=== PATIENT | female | born 1970 | race Caucasian/White ===

== ENCOUNTER → 2017-07-20 | Outpatient (CLI) | payer OTHER ==
[2017-07-20 12:44] LABS: Basophils % (A) 0 %; CH 32.8; CHCM 34.7; Eosinophils # (A) 0.3 k/uL (0-0.7); Eosinophils % (A) 4 %; HCT 37.9 % (34.0-46.0); HDW 2.47; HGB 13.2 gm/dL (11.4-16.0); Luc % (Auto) 1; Lymphocytes # (A) 2.8 k/uL (1.0-4.8); Lymphocytes % (A) 35 %; MCH 33.1 pg (25.0-35.0); MCHC 34.8 g/dL (31.0-37.0); Mean Platelet Volume 7.5; Monocytes # (A) 0.3 k/uL (0-1.0); Monocytes % (A) 4 %; Neutrophils # (A) 4.6 k/uL (1.3-7.7); Neutrophils % (A) 56 %; RBC 3.99 m/uL (3.80-5.40); RDW 12.8 % (11.5-15.5); WBC 8.2 k/uL (3.8-10.6); WBC (Perox) 8.58
== END | disposition home or self-care (01) ==
LOC: LABPAT 12:06
PROVIDERS: ATTEND Obstetrics & Gynecology
DX: Z01.810 Encounter for preprocedural cardiovascular examination (principal); Z01.812 Encounter for preprocedural laboratory examination; I10 Essential (primary) hypertension; N93.8 Other specified abnormal uterine and vaginal bleeding
CPT/HCPCS: 85025; 93005

== ENCOUNTER 2017-07-24 07:45 | Day surgery (SDC) | payer OTHER ==
--- NOTE | 2017-07-20 22:06 | HP ---
HISTORY AND PHYSICAL DATE OF PROCEDURE: 07/24/2017 HISTORY: This is a 47-year-old 0 woman with dysfunctional uterine bleeding who is scheduled to undergo NovaSure endometrial ablation and diagnostic hysteroscopy. History is significant for a 2-month history of heavy irregular vaginal bleeding. Endometrial biopsy was benign. Pelvic ultrasound was remarkable for a slightly thickened endometrium of 1.3 cm; otherwise normal. She has elected NovaSure ablation for treatment of her heavy bleeding. ALLERGIES: NONE. MEDICATIONS: 1. Inderal LA. 2. Lopid. 3. Lotensin. 4. Metformin. 5. Microzide. 6. Protonix. 7. Vitamin D. PAST MEDICAL HISTORY: 1. Obesity. 2. Diabetes. 3. History of heart attack. 4. Hypertension. 5. Kidney stones. 6. Supraventricular tachycardia. PAST SURGICAL HISTORY: None. 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 No history of abnormal Pap smears or STDs. SOCIAL HISTORY: She is . Negative for tobacco, alcohol and drug use. REVIEW OF SYSTEMS: Negative except for that described above. PHYSICAL EXAM: Height 5 feet 6 inches, weight 310 pounds, blood pressure 110/80, heart rate 96. In general, this is a pleasant, obese female in no apparent distress. HEENT exam is unremarkable. LUNGS: Clear to auscultation bilaterally. Heart has a regular rate and rhythm. ABDOMEN: Obese with pannus and is soft and nontender. There is some cutaneous candidiasis underneath the pannus and the breasts. Pelvic examination is somewhat limited secondary to the patient's body habitus. However, no gross abnormalities are palpable on bimanual examination. ASSESSMENT: This is a 47-year-old 0 woman with dysfunctional uterine bleeding who is scheduled to undergo diagnostic hysteroscopy and NovaSure endometrial ablation. She has had benign endometrial sampling. Risks, benefits and alternatives to this procedure have been reviewed with the patient in detail in the office setting. Risks include but are not limited to bleeding, transfusion, infection, damage to the uterus, including uterine perforation. There is possible risk of damage to internal structures such as the bowel or the bladder. The patient understands these risks and agrees to proceed. She is scheduled for the above-named procedure on 07/24/17. MMODL / IJN: [id number] /
[2017-07-24] MEDS ORDERED: fentaNYL (PF) 50 MCG/ML 2 ML AMP ONE (09:37)
[2017-07-24] MEDS ORDERED: MIDAZOLAM 2 MG/2 ML VIAL ONE (09:37)
[2017-07-24] MEDS ORDERED: KETOROLAC 30 MG/ML 1 ML VIAL ONE (09:37)
[2017-07-24] MEDS ORDERED: LIDOCAINE 1% INJ 10MG/ML (20 ML MDV) ONE (09:37)
[2017-07-24] MEDS ORDERED: SUCCINYLCHOLINE CHLORIDE VIAL 200 MG/10 ML VIAL IV ONE (09:37)
[2017-07-24] MEDS ORDERED: PROPOFOL 10 MG/ML 20 ML VIAL IV ONE (09:37)
--- NOTE | 2017-07-24 10:16 | P.OP ---
Date of Procedure: 07/24/17 Preoperative Diagnosis: DysFunctional uterine bleeding Morbid obesity Postoperative Diagnosis: Same Procedure(s) Performed: Diagnostic hysteroscopy and NovaSure endometrial ablation Anesthesia: DELIA Surgeon: Juana Ladd Estimated Blood Loss (ml): 0 IV fluids (ml): 300 Urine output (ml): 100 Pathology: none sent Condition: stable Disposition: PACU Description of Procedure: After the patient was met in the preoperative holding area and all questions were answered, she was taken the operating room where anesthetic was administered without incident. She was in positioned, prepped and draped in the dorsal lithotomy position. Bladder was drained for approximately 100 mL of lactated speculum was placed in the vagina and the cervix was grasped anteriorly with a single-tooth tenaculum. Visualization was somewhat difficult secondary to patient's body habitus. The uterus was sounded to 8.5 cm. The cervix was then sequentially dilated with Hegar dilators to allow for passage of the diagnostic hysteroscope. The hysteroscope was introduced and an unremarkable endometrial cavity was appreciated. There are no gross intracavitary lesions noted. The hysteroscope was removed and the cervix was further dilated to allow for passage of the NovaSure ablation device. The device was deployed into the uterus with a cavity length of 4.0 cm and a width of 2.5 cm. Cavity assessment was passed. The device was enabled for a treatment cycle of 79 seconds with a power of 55 W. Following cessation of the treatment cycle the device was removed and the hysteroscope was reintroduced. Complete desiccation of the endometrium was appreciated. All instruments were then removed from the vagina and the patient was awoken from anesthetic without incident. She was transported to recovery area in stable condition. Of note patient did have reasonable uterine descensus and a small uterus and potentially be a candidate for vaginal hysterectomy with difficult secondary to habitus.
[2017-07-24 10:55] LABS: Glucose,Whole Blood 274 mg/dL (75-99)
[2017-07-24 10:55] LABS: Glucose,Whole Blood 267 mg/dL (75-99)
[2017-07-24] MEDS: HYDROmorphone 1 MG/ML 1 ML SYRINGE IVP ONE ×2 (11:08→11:25)
[2017-07-24] MEDS ORDERED: ONDANSETRON 4 MG/2 ML VIAL IVP ONE (11:08)
[2017-07-24 11:22] VITALS: TEMP 97.2
[2017-07-24 11:50] VITALS: PULSE 73; RESP 16
[2017-07-24] MEDS ORDERED: METOCLOPRAMIDE 5 MG/ML 2 ML VIAL IVP ONE (12:00)
[2017-07-24 12:16] VITALS: BP 155/85
== END 2017-07-24 12:34 | disposition home or self-care (01) ==
LOC: OR 07:45
PROVIDERS: ATTEND Obstetrics & Gynecology
DX: N93.8 Other specified abnormal uterine and vaginal bleeding (principal); E11.9 Type 2 diabetes mellitus without complications; I10 Essential (primary) hypertension; I47.1 Supraventricular tachycardia; I25.2 Old myocardial infarction; E66.01 Morbid (severe) obesity due to excess calories; Z79.899 Other long term (current) drug therapy; Z79.84 Long term (current) use of oral hypoglycemic drugs; Z87.442 Personal history of urinary calculi
CPT/HCPCS: 81025; 58563; J2250; J0330; J2765; J2405; J2001; J3010; J1885; J1170; J2704

== ENCOUNTER → 2018-08-21 | Outpatient (CLI) | payer OTHER ==
[2018-08-21 10:18] LABS: Blood Urea Nitrogen 16 mg/dL (7-17)
--- NOTE | 2018-08-21 13:36 | CT ---
EXAMINATION TYPE: CT abdomen pelvis wo/w con DATE OF EXAM: 08/21/2018 COMPARISON: None HISTORY: Pt experiencing left to right abdominal pain, pelvic & perineal pain, hematuria. CT DLP: 3098 mGycm Automated exposure control for dose reduction was used. TECHNIQUE: Helical acquisition of images was performed from the lung bases through the pelvis. CONTRAST: Performed with Oral Contrast and with IV Contrast, patient injected with 100 mL of Isovue 300. FINDINGS: Small umbilical hernia contains fat. LUNG BASES: No significant abnormality is appreciated. LIVER/GB: Liver shows low attenuation and is enlarged. Gallbladder is within normal limits. PANCREAS: No significant abnormality is seen. SPLEEN: Spleen is enlarged. Small splenule noted anterior to the spleen. ADRENALS: No significant abnormality is seen. KIDNEYS: No significant abnormality is seen. Lobular contour to the kidneys is present bilaterally. FREE AIR: No free air is visualized. RETROPERITONEAL ADENOPATHY: None visualized REPRODUCTIVE ORGANS: No significant abnormality is seen URINARY BLADDER: No significant abnormality is seen. PELVIC ADENOPATHY: None visualized. OSSEOUS STRUCTURES: Degenerative disc changes are present in the visualized spine, there is a spinal curvature. BOWEL: Appendix is normal. No evident bowel obstruction. Mucosal thickening in the sigmoid colon is noted, difficult to exclude underlying mass. Scattered diverticular change noted in the colon. OTHER: Varicosities noted proximal left lower extremity the subcutaneous fat anteriorly IMPRESSION: HEPATOSPLENOMEGALY, CORRELATE FOR HEPATIC STEATOSIS. DIVERTICULOSIS, DIFFICULT TO EXCLUDE A MUCOSAL L ESION WITHIN THE COLON, BOWEL SURVEILLANCE HAS NOT BEEN PERFORMED THEN IT SHOULD BE CONSIDERED.
== END | disposition home or self-care (01) ==
LOC: RADCTMAIN 09:26
PROVIDERS: ATTEND Family Medicine
DX: R16.2 Hepatomegaly with splenomegaly, not elsewhere classified (principal)
CPT/HCPCS: 82565; 84520; 74178; 36415; Q9967

== ENCOUNTER → 2018-08-23 | Day surgery (SDC) | payer OTHER ==
[2018-08-21 13:45] VITALS: BMI 39.1
[~2018-08-23] MED LIST: HYDROmorphone 1 MG/ML 1 ML SYRINGE IVP PRN; LACTATED RINGERS 1,000 ML IV SCH; LIDOCAINE 1% 20 ML VIAL (10MG/ML) FOR IV START INTRADERMA PRN; LIDOCAINE 1% INJ 10MG/ML (20 ML MDV) ONE; PROPOFOL 10 MG/ML 20 ML VIAL IV ONE
[2018-08-23 07:21] VITALS: TEMP 97.5
[2018-08-23 07:26] LABS: Glucose,Whole Blood 178 mg/dL (75-99)
--- NOTE | 2018-08-23 09:12 | P.PCN ---
Date of Procedure: 08/23/18 Procedure(s) Performed: Procedure: Total colonoscopy. Preoperative diagnosis: Screening for neoplasia. Postoperative diagnosis: Mild sigmoid diverticulosis with no evidence of acute diverticulitis, strictures, polyps or cancer. Preparation: HalfLytely prep. Sedation: Was provided by anesthesia. Brief clinical history: The patient is a 48-year-old female who is scheduled for this evaluation for screening for neoplasia age being her risk factor. There is no family history of colon cancer. The patient has no abdominal complaints, bleeding or anemia. She had a colonoscopy at age 16, and this would be her first screening examination. Procedure: With the patient on her left lateral decubitus position and after informed consent and adequate sedation, the perianal area was inspected and it did not show any fissures or fistulas. There were no masses felt on digital rectal examination. The Olympus CFQ 160L video colonoscope was then inserted in the rectum in the usual fashion and advanced to the cecum. There were few small diverticular orifices seen scattered in the sigmoid but I saw no evidence of acute diverticulitis or strictures. No polyps or tumors were seen. The mucosa appeared healthy. I retroflexed the endoscope in the rectum before the endoscope was withdrawn. The patient tolerated the procedure well. Plan: The patient was reassured. Discussed dietary measures. She will follow- up with you as planned and I recommended repeat exam in 10 years.
[2018-08-23 09:14] VITALS: BP 159/96; PULSE 64; RESP 18
[2018-08-23 09:21] LABS: Glucose,Whole Blood 157 mg/dL (75-99)
== END ==
LOC: ORWHC2ENDO 07:00
DX: Z12.11 Encounter for screening for malignant neoplasm of colon (principal); K57.30 Diverticulosis of large intestine without perforation or abscess without bleeding; E11.9 Type 2 diabetes mellitus without complications; I10 Essential (primary) hypertension; E78.5 Hyperlipidemia, unspecified; J44.9 Chronic obstructive pulmonary disease, unspecified; K21.9 Gastro-esophageal reflux disease without esophagitis; Z79.84 Long term (current) use of oral hypoglycemic drugs; Z79.82 Long term (current) use of aspirin; Z79.899 Other long term (current) drug therapy; Z88.5 Allergy status to narcotic agent; Z88.8 Allergy status to other drugs, medicaments and biological substances; Z87.891 Personal history of nicotine dependence
CPT/HCPCS: J2001; J2704; G0121

== ENCOUNTER → 2018-10-02 | Outpatient (CLI) | payer OTHER ==
--- NOTE | 2018-10-02 08:59 | NM ---
EXAMINATION TYPE: NM hepatobiliary w CCK DATE OF EXAM: 10/02/2018 COMPARISON: NONE HISTORY: Pain TECHNIQUE: After the intravenous administration of 5.24 mCi Tc 99m Mebrofenin hepatobiliary scintigra phy is performed. Immediate images post injection. FINDINGS: There is satisfactory initial accumulation of tracer by the liver. The gallbladder is visualized wit hin 14 minutes. The small bowel activity is noted within 48 minutes. At one hour CCK was administer ed, patient was injected with 2.3 mcg of Kinevac, and gallbladder ejection fraction is calculated at 38 %. IMPRESSION: 1. Diminished gallbladder ejection fraction which may reflect chronic cholecystitis and/or biliary dy skinesia.
== END | disposition home or self-care (01) ==
LOC: RADNMMAIN 06:46
PROVIDERS: ATTEND Surgery
DX: K81.1 Chronic cholecystitis (principal)
CPT/HCPCS: 78227; A9537; J2805

== ENCOUNTER 2018-10-08 06:17 | Day surgery (SDC) | payer OTHER ==
[~2018-10-08 06:17] MED LIST changes: +DEXAMETHASONE SOD PHOSPHATE 10 MG/ML 1 ML VIAL IV ONE; +HEPARIN SODIUM,PORCINE 5,000 UNIT/ML 1 ML VIAL SQ ONE; -HYDROmorphone 1 MG/ML 1 ML SYRINGE IVP PRN; -LIDOCAINE 1% INJ 10MG/ML (20 ML MDV) ONE; +MIDAZOLAM 2 MG/2 ML VIAL IV PRN; +ONDANSETRON 4 MG/2 ML VIAL IVP ONE; -PROPOFOL 10 MG/ML 20 ML VIAL IV ONE; +ceFAZolin IN SWFI 2 GM/20 ML SYRINGE IVP ONE; +fentaNYL (PF) 50 MCG/ML 2 ML AMP IV PRN
[2018-10-08] MEDS ORDERED: DEXAMETHASONE SOD PHOSPHATE 4 MG/ML 1 ML VIAL IVP ONE (07:25)
[2018-10-08] MEDS ORDERED: ONDANSETRON 4 MG/2 ML VIAL IVP ONE ×2 (07:26→09:38)
[2018-10-08 07:35] LABS: Glucose,Whole Blood 182 mg/dL (75-99)
[2018-10-08] MEDS ORDERED: BUPIVACAIN-EPI 0.25%-1:200,000 30 ML VIAL SQ ONE (07:42)
[2018-10-08] MEDS ORDERED: MIDAZOLAM 2 MG/2 ML VIAL IVP ONE (07:45)
--- NOTE | 2018-10-08 07:54 | P.GSHP ---
History of Present Illness H&P Date: 10/08/18 Chief Complaint: Right upper quadrant pain This is a 48-year-old female who presents today for laparoscopic cholecystectomy. Patient's had complaints were for pain. Her recent HIDA scan shows decreased ejection fraction consistent with chronic cholecystitis and biliary dysfunction. Past Medical History Past Medical History: Diabetes Mellitus, GERD/Reflux, Hyperlipidemia, Hypertension, Osteoarthritis (OA) Additional Past Medical History / Comment(s): CURRENT: WAVES OF URQ PAIN WITH VOMITING. SVT. ALLERGIES. NEUROPATHY IN FEET. 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 Date of last positivie culture/infection: 06/27/17 MDRO Source:: LEFT GROIN Additional Past Surgical History / Comment(s): D & C Past Anesthesia/Blood Transfusion Reactions: No Reported Reaction, Motion Sickness Past Psychological History: Depression Smoking Status: Former smoker Past Alcohol Use History: Occasional Additional Past Alcohol Use History / Comment(s): QUIT@ AGE 27, 1PPD Past Drug Use History: None Reported - Past Family History Mother Family Medical History: Cancer, Deep Vein Thrombosis (DVT) Additional Family Medical History / Comment(s): RENAL CA Brother(s) Family Medical History: Deep Vein Thrombosis (DVT) Medications and Allergies Home Medications Medication Instructions Recorded Confirmed Type Albuterol Sulfate [Proventil Hfa] 1 - 2 puff INHALATION Q6HR PRN 07/19/17 History Aspirin [Adult Low Dose Aspirin EC] 81 mg PO DAILY 07/19/17 10/05/18 History Ergocalciferol (Vitamin D2) 50,000 unit PO FR 07/19/17 10/08/18 History [Vitamin D2] Gemfibrozil [Lopid] 600 mg PO QAM 07/19/17 10/08/18 History Microzide 12.5 mg PO QAM 07/19/17 10/08/18 History Pantoprazole Sodium [Protonix] 40 mg PO QAM 07/19/17 10/05/18 History Propranolol [Inderal] 20 mg PO TID 07/19/17 10/05/18 History diphenhydrAMINE [Benadryl] 25 mg PO DAILY PRN 07/19/17 10/08/18 History metFORMIN HCL 1,000 mg PO QAM 07/19/17 10/05/18 History ALPRAZolam [Xanax] 0.25 mg PO BID PRN 08/21/18 10/08/18 History Sertraline [Zoloft] 50 mg PO QAM 08/21/18 10/05/18 History Victoza 1.2 mg SQ HS 08/21/18 10/05/18 History Multivitamins, Thera [Multivitamin 1 tab PO DAILY 10/05/18 10/05/18 History (formulary)] Allergies Allergy/AdvReac Type Severity Reaction Status Date / Time benazepril Allergy "throat Verified 10/08/18 06:58 closing" hydrocodone [From Vicodin] Allergy Nausea & Verified 10/08/18 06:58 Vomiting Surgical - Exam Vital Signs Temp Pulse Resp BP Pulse Ox 97.7 F 80 20 153/93 96 10/08/18 07:10 10/08/18 07:10 10/08/18 07:10 10/08/18 07:10 10/08/18 07:10 - General well developed, well nourished, no distress - Eyes PERRL - ENT normal pinna - Neck no masses - Respiratory normal respiratory effort - Cardiovascular Rhythm: regular - Abdomen Abdomen: soft, non tender Results - Labs Abnormal Lab Results - Last 24 Hours (Table) 10/08/18 Range/Units 07:18 POC Glucose (mg/dL) 182 H (75-99) mg/dL Assessment and Plan Assessment: Right upper quadrant pain Chronic lysis We'll perform laparoscopic cholecystectomy.
[2018-10-08] MEDS ORDERED: NEOSTIGMINE 1 MG/ML 10 ML VIAL ONE (07:55)
[2018-10-08] MEDS ORDERED: PROPOFOL 10 MG/ML 20 ML VIAL IV ONE (07:55)
[2018-10-08] MEDS ORDERED: GLYCOPYRROLATE 0.2 MG/ML 2 ML VIAL ONE (07:55)
[2018-10-08] MEDS ORDERED: fentaNYL (PF) 50 MCG/ML 2 ML AMP ONE (07:55)
[2018-10-08] MEDS ORDERED: LIDOCAINE 1% INJ 10MG/ML (20 ML MDV) ONE (07:55)
[2018-10-08] MEDS ORDERED: MIDAZOLAM 2 MG/2 ML VIAL ONE (07:55)
[2018-10-08] MEDS ORDERED: ROCURONIUM BROMIDE 10 MG/ML 10 ML VIAL IV ONE (07:55)
[2018-10-08] MEDS ORDERED: LABETALOL 5 MG/ML VIAL MDV ONE (07:55)
[2018-10-08] MEDS ORDERED: KETOROLAC 30 MG/ML 1 ML VIAL ONE (07:55)
[2018-10-08 09:16] VITALS: TEMP 97.5
--- NOTE | 2018-10-08 09:28 | P.OP ---
Date of Procedure: 10/08/18 Preoperative Diagnosis: Cholecystitis Postoperative Diagnosis: Cholecystitis Procedure(s) Performed: Laparoscopic cholecystectomy Anesthesia: DELIA Surgeon: Jose Juan Vergara Estimated Blood Loss (ml): 5 Pathology: other (Gallbladder) Condition: stable Disposition: PACU Description of Procedure: The patient was placed on the operating table. The patient received a general endotracheal tube anesthesia. The patients abdomen was prepped and draped in the usual sterile fashion. Through an infraumbilical stab incision, the fascia of the anterior abdominal wall was grasped with a pair of Kochers and then the Veress needle was placed in the peritoneal cavity. Position of the Veress needle was confirmed with positive drop test. The abdomen was then insufflated. After adequate insufflation, the 10 mm trocar was placed in the peritoneal cavity. Following this the laparoscope was placed in the peritoneal cavity. The patient was placed in the head-up, right side up position and then a 5 mm trocar was placed in the right lateral and right subcostal position under direct visualization. A 8 mm trocar was placed in the epigastric position. The gallbladder was grasped in the fundus and infundibulum. Traction on the gallbladder was placed in the lateral and the cephalad positions. The triangle of Calot was visualized.. The cystic duct was bluntly dissected until the union of the cystic duct and common bile duct was seen. The cystic duct was then divided and sealed with the Harmonic scissors. A PDS Endoloop was then placed throughout the cystic duct stump. The cystic artery divided and sealed with the Harmonic scissors. The gallbladder was then removed from the liver bed using Harmonic scissors. The gallbladder was then extracted through the epigastric port site. Operative field was checked for any bleeding spots and Harmonic scissors was used to coagulate the liver bed. The abdomen was irrigated. The trocars were removed. The skin was closed using interrupted 3-0 Vicryl suture. Dermabond dressing were applied. The patient tolerated the procedure well.
[2018-10-08] MEDS: HYDROmorphone 1 MG/ML 1 ML SYRINGE IVP ONE ×2 (09:33→09:45)
[2018-10-08 10:10] VITALS: RESP 18
[2018-10-08 10:15] LABS: Glucose,Whole Blood 198 mg/dL (75-99)
[2018-10-08 10:24] VITALS: BP 129/83; PULSE 71
== END 2018-10-08 10:53 | disposition home or self-care (01) ==
LOC: OR 06:17
PROVIDERS: ATTEND Surgery
DX: K81.1 Chronic cholecystitis (principal); I10 Essential (primary) hypertension; E11.42 Type 2 diabetes mellitus with diabetic polyneuropathy; E78.5 Hyperlipidemia, unspecified; K21.9 Gastro-esophageal reflux disease without esophagitis; M19.90 Unspecified osteoarthritis, unspecified site; I47.1 Supraventricular tachycardia; F32.9 Major depressive disorder, single episode, unspecified; Z86.14 Personal history of Methicillin resistant Staphylococcus aureus infection; Z87.891 Personal history of nicotine dependence; Z79.84 Long term (current) use of oral hypoglycemic drugs; Z79.82 Long term (current) use of aspirin; Z79.899 Other long term (current) drug therapy; Z88.5 Allergy status to narcotic agent; Z88.8 Allergy status to other drugs, medicaments and biological substances
CPT/HCPCS: 88304; 47562; J2250; J1644; J1100; J2710; J2405; J2001; J3010; J1885; J1170; J2704; J0690

== ENCOUNTER 2023-11-22 07:23 | Inpatient (IN) | payer BC ==
[2023-11-22] MEDS ORDERED: diphenhydrAMINE 50 MG/ML 1 ML VIAL IVP STA (07:57)
[2023-11-22] MEDS ORDERED: SODIUM CHLORIDE 0.9% 1,000 ML IV ONE ×2 (07:57→13:18)
[2023-11-22] MEDS ORDERED: KETOROLAC 15 MG/ML 1 ML VIAL IVP STA (07:57)
[2023-11-22] MEDS ORDERED: METOCLOPRAMIDE 5 MG/ML 2 ML VIAL IVP STA (07:57)
--- NOTE | 2023-11-22 07:58 | ED ---
Nausea/Vomiting/Diarrhea HPI - General Source: patient, EMS, RN notes reviewed Mode of arrival: EMS Limitations: no limitations <Lambert Mueller - Last Filed: 11/22/23 07:57> - General Source: patient, RN notes reviewed, old records reviewed <Zya Rudd - Last Filed: 11/22/23 14:50> - General Chief complaint: Nausea/Vomiting/Diarrhea Stated complaint: covid Time Seen by Provider: 11/22/23 07:58 - History of Present Illness Initial comments: 53-year-old female presents emergency Department chief complaint nausea vomiting dehydration. Patient states she tested positive for COVID-19 on at her PCPs. Patient states that she's not been able to keep anything down she feels very weak, run down. She denies any chest pain or shortness of breath. (Lambert Mueller) Patient presents for evaluation for nausea and vomiting and in the setting of acute COVID-19 infection. Originally evaluated as a quick note. Has history diabetes. Tested positive for COVID-19 last . The last 2 days has had nausea, vomiting, generalized abdominal pain.Endorses diarrhea as well. States she feels sick. Is an insulin-dependent diabetic. Presents for further evaluation at this time. (Zay Rudd) - Related Data Home Medications Medication Instructions Recorded Confirmed Albuterol Sulfate [Proventil Hfa] 1 - 2 puff INHALATION RT-Q6H PRN 07/19/1711/06 Pantoprazole Sodium [Protonix] 40 mg PO DAILY 07/19/17 11/22/23 gemfibroziL [Lopid] 600 mg PO QAM 07/19/17 11/22/23 Gabapentin [Neurontin] 300 mg PO TID 11/22/23 11/22/23 Insulin Glargine/Lixisenatide 60 units SQ AC-BRKFST 11/22/23 11/22/23 [Soliqua 100 Unit-33 Mcg/ml Pen] Metoprolol Succinate (ER) [Toprol 50 mg PO DAILY 11/22/23 11/22/23 Xl] Pantoprazole [Protonix] 40 mg PO DAILY 11/22/23 11/22/23 Rosuvastatin [Crestor] 10 mg PO HS 11/22/23 11/22/23 Spironolactone 25 mg PO DAILY 11/22/23 11/22/23 buPROPion XL [Wellbutrin XL] 150 mg PO DAILY 11/22/23 11/22/23 dilTIAZem HCL [dilTIAZem HCL 24Hr 120 mg PO DAILY 11/22/23 11/22/23 ER (CD)] metFORMIN HCL [Glucophage] 500 mg PO BID 11/22/23 11/22/23 Allergies Allergy/AdvReac Type Severity Reaction Status Date / Time benazepril Allergy "throat Verified 11/22/23 11:46 closing" hydrocodone [From Vicodin] AdvReac Nausea & Verified 11/22/23 11:46 Vomiting Review of Systems ROS Other: All systems not noted in ROS Statement are negative. <Lambert Mueller - Last Filed: 11/22/23 07:57> ROS Other: All systems not noted in ROS Statement are negative. <Zay Rudd - Last Filed: 11/22/23 14:50> ROS Statement: Those systems with pertinent positive or pertinent negative responses have been documented in the HPI. Review of Systems: CONST: Denies fever EYES: Denies blurry vision ENT: Denies nasal congestion C/V: Denies Chest pain RESP: Denies shortness of breath GI: Endorses abdominal pain : Denies dysuria SKIN: Denies rash. MSK: Denies joint pain. NEURO: Denies headache (Zay Rudd) Past Medical History Past Medical History: Diabetes Mellitus, GERD/Reflux, Hyperlipidemia, Hypertension, Osteoarthritis (OA) Additional Past Medical History / Comment(s): SVT. ALLERGIES. NEUROPATHY IN FEET. 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 Date of last positivie culture/infection: 06/27/17 MDRO Source:: LEFT GROIN Additional Past Surgical History / Comment(s): D & C Past Anesthesia/Blood Transfusion Reactions: No Reported Reaction, Motion Sickness Past Psychological History: Depression Smoking Status: Former smoker Past Alcohol Use History: Occasional Past Drug Use History: None Reported - Past Family History Mother Family Medical History: Cancer, Deep Vein Thrombosis (DVT) Additional Family Medical History / Comment(s): RENAL CA Brother(s) Family Medical History: Deep Vein Thrombosis (DVT) <Lambert Mueller - Last Filed: 11/22/23 07:57> General Exam Limitations: no limitations <Lambert Mueller - Last Filed: 11/22/23 07:57> <Zay Rudd - Last Filed: 11/22/23 14:50> - General Exam Comments Initial Comments: Visual Physical Exam Vital signs reviewed General: Well-appearing, nontoxic, no acute distress. Head: Normocephalic, atraumatic Eyes: PERRLA, EOMI ENT: Airway patent Chest: Nonlabored breathing Skin: No visual rash, normal skin tone Neuro: Alert and oriented 3 Musculoskeletal: No gross abnormalities (Lambert Mueller) General: Appears in moderate distress. HEAD: Normal with no signs of head trauma. EYES: PERRLA, EOMI, conjunctiva normal, no discharge. ENT: Hearing grossly intact, normal oropharynx. Dry mucous membranes. RESPIRATORY: Clear breath sounds bilaterally. No wheezes, rales, or rhonchi. No hypoxia. No increased work of breathing. C/V: Tachycardic. S1 and S2 auscultated, no edema, peripheral pulses 2+ and intact throughout ABD: Abdomen is nondistended, soft. No focal tenderness to palpation, but generalized tenderness. No guarding. No rebound tenderness. No peritoneal signs. EXT: Normal range of motion, no obvious deformity SKIN: No rashes or lesions observed on exposed skin. NEURO: Alert and oriented 4. (Zay Rudd) Course Vital Signs 11/22/23 11/22/23 07:31 10:27 Temperature 97.7 F Pulse Rate 118 H 110 H Respiratory 18 20 Rate Blood Pressure 173/93 188/105 O2 Sat by Pulse 95 97 Oximetry Medical Decision Making <Lambert Mueller - Last Filed: 11/22/23 07:57> - Lab Data Result diagrams: 11/22/23 07:59 11/22/23 13:23 - EKG Data -: EKG Interpreted by Me <Zay Rudd - Last Filed: 11/22/23 14:50> - Medical Decision Making I completed the quick note portion of this chart signed Lambert Mueller PA-C (Lambert Mueller) Was pt. sent in by a medical professional or institution (NATO Ordonez, DATABASE ADMINISTRATION MANAGER, urgent care, hospital, or assisted...) When possible be specific @ -No Did you speak to anyone other than the patient for history (EMS, parent, family, police, friend...)? What history was obtained from this source @ -No Did you review nursing and triage notes (agree or disagree)? Why? @ -I reviewed and agree with nursing and triage notes Were old charts reviewed (outside hosp., previous admission, EMS record, old EKG, old radiological studies, urgent care reports/EKG's, assisted records)? Report findings @ -Charts reviewed Differential Diagnosis (chest pain, altered mental status, abdominal pain women, abdominal pain men, vaginal bleeding, weakness, fever, dyspnea, syncope, headache, dizziness, GI bleed, back pain, seizure, CVA, palpatations, mental health, musculoskeletal)? @ -Differential Weakness: Hypoglycemia, shock, sepsis, hyponatremia, anemia, infection, AL, ETOH, adverse medicine reaction, overdose, stroke, this is not meant to be an all-inclusive list. Differential Abdominal Pain Women: Appendicitis, Cholecystitis, diverticulosis, ischemic bowel, pancreatitis, hepatitis, UTI, gastroenteritis, AAA, incarcerated hernia, bowel obstruction, constipation, inflammatory bowel, hepatitis, peptic ulcer disease, splenic infarction, perforated viscus, vulvitis, ovarian torsion, PID, kidney stone, placenta abruption, this is not meant to be an all-inclusive list EKG interpreted by me (3pts min.). @ -As above X-rays interpreted by me (1pt min.). @ -Chest x-ray reveals no obvious acute cardiopulmonary process. CT interpreted by me (1pt min.). @ -CT abdomen and pelvis reveals colitis as well as chronic renal finding. U/S interpreted by me (1pt. min.). @ -None done What testing was considered but not performed or refused? (CT, X-rays, U/S, la bs)? Why? @ -None What meds were considered but not given or refused? Why? @ -None Did you discuss the management of the patient with other professionals (professionals i.e. DrRissa, PA, DATABASE ADMINISTRATION MANAGER, lab, RT, psych nurse, social work case manager, christian science nurse, teacher, security officers and guards, case supervisor)? Give summary @ -I spoke with the admitting physician, Dr. Dukes who accepted the admission. Was smoking cessation discussed for >3mins.? @ -No Was critical care preformed (if so, how long)? @ -No Were there social determinants of health that impacted care today? How? (Homelessness, low income, unemployed, alcoholism, drug addiction, tr ansportation, low edu. Level, literacy, decrease access to med. care, alf, rehab)? @ -No Was there de-escalation of care discussed even if they declined (Discuss DNR or withdrawal of care, Hospice)? DNR status @ -No What co-morbidities impacted this encounter? (DM, HTN, Smoking, COPD, CAD, Cancer, CVA, ARF, Chemo, Hep., AIDS, mental health diagnosis, sleep apnea, morbid obesity)? @ -None Was patient admitted / discharged? Hospital course, mention meds given and route, prescriptions, significant lab abnormalities, going to OR and other pertinent info. @ -Based on the patient's presentation and physical exam, I'm concerned for dehydration. The patient, possible diabetic ketoacidosis in the setting of diabetes that is insulin-dependent. I evaluated the patient when she was placed in a room after workup was already started as a quick note. Labs returned and so far remarkable for hyponatremia and hypochloremia. Patient has an anion gap of 19 and appears to be acidotic with a carbon dioxide of 12. Patient is hyperglycemic to 459. Hemolyzed potassium is 5.2 and we will repeat. Patient is having moderate abdominal pain and we will obtain CT abdomen and pelvis in addition to chest x-ray, initial laboratory studies. Patient was in agreement with this plan. She'll be symptomatically treated with 2 L fluid bolus as well as IV Reglan, Toradol, Benadryl. Vital signs otherwise within acceptable limits. EKG shows no signs of acute ischemia. No evidence of hyperkalemia.Patient has ketones in the urine however acetone is negative. Patient does have a mild lactic acidosis of 2.8. Repeat potassium is normal. Patient still testing positive for Covid. He On reevaluation come patient is feeling improved. I believe she requires admission at this time. I do not believe she has DKA at this time. She was in agreement. She will be admitted for IV fluid hydration and monitoring her sugars. She was in agreement this plan. I spoke with the admitting physician, Dr. Dukes who accepted the admission. Undiagnosed new problem with uncertain prognosis? @ -No Drug Therapy requiring intensive monitoring for toxicity (Heparin, Nitro, Insulin, Cardizem)? @ -No Were any procedures done? @ -No Diagnosis/symptom? @ -COVID-19 infection, dehydration, hyperglycemia Acute, or Chronic, or Acute on Chronic? @ -Acute Uncomplicated (without systemic symptoms) or Complicated (systemic symptoms)? @ -Complicated Side effects of treatment? @ -none Exacerbation, Progression, or Severe Exacerbation] @ -no Poses a threat to life or bodily function? @ -Yes (Zay Rudd) - Lab Data Lab Results 11/22/23 11/22/23 11/22/23 Range/Units 07:59 07:59 07:59 WBC 8.9 (3.8-10.6) k/uL RBC 5.13 (3.80-5.40) m/uL Hgb 16.2 H (11.4-16.0) gm/dL Hct 45.1 (34.0-46.0) % MCV 87.8 (80.0-100.0) fL MCH 31.5 (25.0-35.0) pg MCHC 35.9 (31.0-37.0) g/dL RDW 12.5 (11.5-15.5) % Plt Count 193 (150-450) k/uL MPV 10.0 Neutrophils % 74 % Lymphocytes % 15 % Monocytes % 9 % Eosinophils % 0 % Basophils % 1 % Neutrophils # 6.5 (1.3-7.7) k/uL Lymphocytes # 1.4 (1.0-4.8) k/uL Monocytes # 0.8 (0-1.0) k/uL Eosinophils # 0.0 (0-0.7) k/uL Basophils # 0.0 (0-0.2) k/uL VBG pH (7.31-7.41) VBG pCO2 (37-51) mmHg VBG HCO3 (24-28) mmol/L Sodium 126 L (137-145) mmol/L Potassium 5.2 H (3.5-5.1) mmol/L Chloride 95 L (98-107) mmol/L Carbon Dioxide 12 L (22-30) mmol/L Anion Gap 19 mmol/L BUN 30 H (7-17) mg/dL Creatinine 0.52 (0.52-1.04) mg/dL Est GFR (CKD-EPI)AfAm >90 (>60 ml/min/1.73 sqM) Est GFR (CKD-EPI)NonAf >90 (>60 ml/min/1.73 sqM) Glucose 459 H (74-99) mg/dL Lactic Ac Sepsis Rflx Plasma Lactic Acid Rex (0.7-2.0) mmol/L Calcium 9.8 (8.4-10.2) mg/dL Magnesium 1.6 (1.6-2.3) mg/dL Total Bilirubin 0.8 (0.2-1.3) mg/dL AST 97 H (14-36) U/L ALT 76 H (4-34) U/L Alkaline Phosphatase 105 (38-126) U/L Total Protein 7.9 (6.3-8.2) g/dL Albumin 4.7 (3.5-5.0) g/dL Urine Color Light Yellow Urine Appearance Clear (Clear) Urine pH 6.0 (5.0-8.0) Ur Specific [place] 1.032 (1.001-1.035) Urine Protein 2+ H (Negative) Urine Glucose (UA) 4+ H (Negative) Urine Ketones 2+ H (Negative) Urine Blood Small H (Negative) Urine Nitrite Negative (Negative) Urine Bilirubin Negative (Negative) Urine Urobilinogen <2.0 (<2.0) mg/dL Ur Leukocyte Esterase Trace H (Negative) Urine RBC 1 (0-5) /hpf Urine WBC 3 (0-5) /hpf Ur Squamous Epith Cells 1 (0-4) /hpf Hyaline Casts 3 H (0-2) /lpf Urine Mucus Rare H (None) /hpf Urine Yeast (Budding) Rare H (None) /hpf Acetone, Qual (Negative) Influenza Type A (PCR) (Not Detectd) Influenza Type B (PCR) (Not Detectd) RSV (PCR) (Not Detectd) SARS-CoV-2 (PCR) (Not Detectd) 11/22/23 11/22/23 11/22/23 Range/Units 09:32 09:32 09:32 WBC (3.8-10.6) k/uL RBC (3.80-5.40) m/uL Hgb (11.4-16.0) gm/dL Hct (34.0-46.0) % MCV (80.0-100.0) fL MCH (25.0-35.0) pg MCHC (31.0-37.0) g/dL RDW (11.5-15.5) % Plt Count (150-450) k/uL MPV Neutrophils % % Lymphocytes % % Monocytes % % Eosinophils % % Basophils % % Neutrophils # (1.3-7.7) k/uL Lymphocytes # (1.0-4.8) k/uL Monocytes # (0-1.0) k/uL Eosinophils # (0-0.7) k/uL Basophils # (0-0.2) k/uL VBG pH 7.31 (7.31-7.41) VBG pCO2 44 (37-51) mmHg VBG HCO3 22 L (24-28) mmol/L Sodium (137-145) mmol/L Potassium 4.3 (3.5-5.1) mmol/L Chloride (98-107) mmol/L Carbon Dioxide (22-30) mmol/L Anion Gap mmol/L BUN (7-17) mg/dL Creatinine (0.52-1.04) mg/dL Est GFR (CKD-EPI)AfAm (>60 ml/min/1.73 sqM) Est GFR (CKD-EPI)NonAf (>60 ml/min/1.73 sqM) Glucose (74-99) mg/dL Lactic Ac Sepsis Rflx Plasma Lactic Acid Rex 2.8 H* (0.7-2.0) mmol/L Calcium (8.4-10.2) mg/dL Magnesium (1.6-2.3) mg/dL Total Bilirubin (0.2-1.3) mg/dL AST (14-36) U/L ALT (4-34) U/L Alkaline Phosphatase (38-126) U/L Total Protein (6.3-8.2) g/dL Albumin (3.5-5.0) g/dL Urine Color Urine Appearance (Clear) Urine pH (5.0-8.0) Ur Specific [place] (1.001-1.035) Urine Protein (Negative) Urine Glucose (UA) (Negative) Urine Ketones (Negative) Urine Blood (Negative) Urine Nitrite (Negative) Urine Bilirubin (Negative) Urine Urobilinogen (<2.0) mg/dL Ur Leukocyte Esterase (Negative) Urine RBC (0-5) /hpf Urine WBC (0-5) /hpf Ur Squamous Epith Cells (0-4) /hpf Hyaline Casts (0-2) /lpf Urine Mucus (None) /hpf Urine Yeast (Budding) (None) /hpf Acetone, Qual Negative (Negative) Influenza Type A (PCR) (Not Detectd) Influenza Type B (PCR) (Not Detectd) RSV (PCR) (Not Detectd) SARS-CoV-2 (PCR) (Not Detectd) 11/22/23 11/22/23 Range/Units 09:32 10:46 WBC (3.8-10.6) k/uL RBC (3.80-5.40) m/uL Hgb (11.4-16.0) gm/dL Hct (34.0-46.0) % MCV (80.0-100.0) fL MCH (25.0-35.0) pg MCHC (31.0-37.0) g/dL RDW (11.5-15.5) % Plt Count (150-450) k/uL MPV Neutrophils % % Lymphocytes % % Monocytes % % Eosinophils % % Basophils % % Neutrophils # (1.3-7.7) k/uL Lymphocytes # (1.0-4.8) k/uL Monocytes # (0-1.0) k/uL Eosinophils # (0-0.7) k/uL Basophils # (0-0.2) k/uL VBG pH (7.31-7.41) VBG pCO2 (37-51) mmHg VBG HCO3 (24-28) mmol/L Sodium (137-145) mmol/L Potassium (3.5-5.1) mmol/L Chloride (98-107) mmol/L Carbon Dioxide (22-30) mmol/L Anion Gap mmol/L BUN (7-17) mg/dL Creatinine (0.52-1.04) mg/dL Est GFR (CKD-EPI)AfAm (>60 ml/min/1.73 sqM) Est GFR (CKD-EPI)NonAf (>60 ml/min/1.73 sqM) Glucose (74-99) mg/dL Lactic Ac Sepsis Rflx Y Plasma Lactic Acid Rex (0.7-2.0) mmol/L Calcium (8.4-10.2) mg/dL Magnesium (1.6-2.3) mg/dL Total Bilirubin (0.2-1.3) mg/dL AST (14-36) U/L ALT (4-34) U/L Alkaline Phosphatase (38-126) U/L Total Protein (6.3-8.2) g/dL Albumin (3.5-5.0) g/dL Urine Color Urine Appearance (Clear) Urine pH (5.0-8.0) Ur Specific [place] (1.001-1.035) Urine Protein (Negative) Urine Glucose (UA) (Negative) Urine Ketones (Negative) Urine Blood (Negative) Urine Nitrite (Negative) Urine Bilirubin (Negative) Urine Urobilinogen (<2.0) mg/dL Ur Leukocyte Esterase (Negative) Urine RBC (0-5) /hpf Urine WBC (0-5) /hpf Ur Squamous Epith Cells (0-4) /hpf Hyaline Casts (0-2) /lpf Urine Mucus (None) /hpf Urine Yeast (Budding) (None) /hpf Acetone, Qual (Negative) Influenza Type A (PCR) Not Detected (Not Detectd) Influenza Type B (PCR) Not Detected (Not Detectd) RSV (PCR) Not Detected (Not Detectd) SARS-CoV-2 (PCR) Detected A (Not Detectd) - EKG Data EKG Comments: 12-lead Electrocardiogram Interpretation Note EKG was reviewed and interpreted by myself. 12-lead ECG performed at 0911 is interpreted by me as revealing sinus tachycardia at a rate of 102 beats per minute. Garrard is normal. ID interval is 198 ms, QRS duration is 96 seconds, QTC is 386 ms.. There were no ST or T wave abnormalities to suggest myocardial ischemia or injury. R wave progression across the precordium was satisfactory. By my interpretation this EKG is non-diagnostic for acute ischemia. (Zay Rudd) Disposition <Lambert Mueller - Last Filed: 11/22/23 07:57> Time of Disposition: 11:35 <Zay Rudd - Last Filed: 11/22/23 14:50> Clinical Impression: COVID-19, Dehydration, Hyperglycemia, Hyponatremia Disposition: ADMITTED IP TO THIS HOSP Condition: Stable
[2023-11-22 08:50] LABS: ALT 76 U/L (4-34); AST 97 U/L (14-36); African American GFR (CKD) >90 (>60 ml/min/1.73 sqM); Albumin 4.7 g/dL (3.5-5.0); Alkaline Phosphatase 105 U/L (38-126); Anion Gap 19 mmol/L; Blood Urea Nitrogen 30 mg/dL (7-17); Calcium 9.8 mg/dL (8.4-10.2); Carbon Dioxide 12 mmol/L (22-30); Chloride 95 mmol/L (98-107); Glucose 459 mg/dL (74-99); Magnesium 1.6 mg/dL (1.6-2.3); Non-African American GFR(CKD) >90 (>60 ml/min/1.73 sqM); Sodium 126 mmol/L (137-145); Total Bilirubin 0.8 mg/dL (0.2-1.3); Total Protein 7.9 g/dL (6.3-8.2)
[2023-11-22 08:57] LABS: Potassium 5.2 mmol/L (3.5-5.1)
[2023-11-22 08:58] LABS: Basophils % (A) 1 %; Eosinophils % (A) 0 %; HCT 45.1 % (34.0-46.0); HGB 16.2 gm/dL (11.4-16.0); Lymphocytes # (A) 1.4 k/uL (1.0-4.8); Lymphocytes % (A) 15 %; MCH 31.5 pg (25.0-35.0); MCHC 35.9 g/dL (31.0-37.0); MCV 87.8 fL (80.0-100.0); Monocytes # (A) 0.8 k/uL (0-1.0); Monocytes % (A) 9 %; Neutrophils # (A) 6.5 k/uL (1.3-7.7); Neutrophils % (A) 74 %; Platelet Count 193 k/uL (150-450); RBC 5.13 m/uL (3.80-5.40); RDW 12.5 % (11.5-15.5); WBC 8.9 k/uL (3.8-10.6)
[2023-11-22] MEDS ORDERED: SODIUM CHLORIDE 0.9% 1,000 ML IV STA (09:09)
[2023-11-22 09:58] LABS: Appearance,Urine Clear (Clear); Bilirubin,Urine Negative (Negative); Blood,Urine Small (Negative); Budding Yeast,Urine Rare /hpf; Color,Urine Light Yellow; Glucose,Urine (UA) 4+ (Negative); Hyaline Casts,Urine 3 /lpf (0-2); Leukocyte Esterase,Urine Trace (Negative); Mucus,Urine Rare /hpf; Nitrite,Urine Negative (Negative); Protein,Urine 2+ (Negative); RBC,Urine 1 /hpf (0-5); Specific Gravity,Urine 1.032 (1.001-1.035); Squamous Epithelial Cell,Urine 1 /hpf (0-4); Urobilinogen,Urine <2.0 mg/dL (<2.0); WBC,Urine 3 /hpf (0-5)
[2023-11-22 10:00] LABS: VBG PH 7.31 (7.31-7.41)
[2023-11-22 10:11] LABS: Potassium 4.3 mmol/L (3.5-5.1)
--- NOTE | 2023-11-22 10:23 | CT ---
EXAMINATION TYPE: CT abdomen pelvis w con CT DLP: 2448.7 mGycm, Automated exposure control for dose reduction was used. DATE OF EXAM: 11/22/2023 10:09 AM COMPARISON: CT abdomen pelvis most recent from 08/21/2018. CLINICAL INDICATION:Female, 53 years old with history of pain, acute, nonlocalized; Covid, N/V/D abdo amanda pain TECHNIQUE: Axial CT abdomen pelvis w con;Sagittal and coronal reformats were created on a separate w orkstation. Contrast used:100 mL of Isovue 300 with IV Contrast, (none if empty) Oral contrast used: without Oral Contrast (none if empty) FINDINGS: LOWER CHEST: Unremarkable ABDOMEN LIVER: Diffusely hypoattenuating parenchyma. GALLBLADDER AND BILE DUCTS: Gallbladder surgically absent. PANCREAS: Unremarkable. SPLEEN: Unremarkable. ADRENAL GLANDS: Unremarkable. KIDNEYS AND URETERS: No evidence of hydronephrosis or renal calculus. The ureters are unremarkable. Indeterminate exophytic lesion in the inferior pole measuring 37 Hounsfield units and 23 mm, previous ly 10 mm in 2018. PELVIS BLADDER: Unremarkable REPRODUCTIVE: Unremarkable. ABDOMEN & PELVIS STOMACH AND BOWEL: No evidence of bowel obstruction. The appendix extends up along the anterior aspec t of the liver and terminates in the right upper quadrant. PERITONEUM/RETROPERITONEUM: No evidence of pneumoperitoneum or free fluid. VASCULATURE: Mild atherosclerotic calcifications are present throughout the abdominal aorta and its b ranches. No evidence of aortic aneurysm. MUSCULOSKELETAL: No acute osseous abnormalities. Moderate disc degeneration changes are present throu ghout the thoracolumbar spine. LYMPH NODES: No gross evidence for lymphadenopathy. SOFT TISSUE/ABDOMINAL WALL: Fat-containing buccal hernia. Few scattered colonic diverticula. Mild wal l thickening of the cecum and ascending colon IMPRESSION: 1. Mild wall thickening of the cecum and ascending colon correlate for colitis. No other acute abdom inal process visualized. 2. Indeterminate left renal lesion which is increase in size from 2018. Further evaluation with [place] l mass protocol MRI recommended. 3. Fat-containing umbilical hernia. 4. Hepatic steatosis.
--- NOTE | 2023-11-22 10:26 | XR ---
EXAMINATION TYPE: XR chest 2V DATE OF EXAM: 11/22/2023 10:15 AM CLINICAL INDICATION:Female, 53 years old with history of cough COMPARISON: Chest radiographs from 11/22/2023. TECHNIQUE: XR chest 2V Frontal and lateral views of the chest. FINDINGS: Lungs/Pleura: There is no evidence of pleural effusion, focal consolidation, or pneumothorax. Pulmonary vascularity: Unremarkable. Heart/mediastinum: Cardiomediastinal silhouette is unremarkable. Musculoskeletal: No acute osseous pathology. Other findings: None IMPRESSION: No acute cardiopulmonary disease/process.
[2023-11-22 10:52] LABS: Ketones,Urine 2+ (Negative)
[2023-11-22] MEDS ORDERED: NALOXONE 0.4 MG/ML 1 ML VIAL IV PRN (12:05)
[2023-11-22] MEDS ORDERED: DEXTROSE 50% SYRINGE 50 ML IVP PRN ×2 (12:16)
[2023-11-22] MEDS: METOPROLOL SUCCINATE (ER) 50 MG TAB.ER.24H PO SCH (13:08)
[2023-11-22] MEDS: SPIRONOLACTONE 25 MG TAB PO SCH (13:08)
[2023-11-22] MEDS: DILTIAZEM CD 120 MG CAP.ER.24H PO SCH (13:08)
[2023-11-22] MEDS: PANTOPRAZOLE 40 MG TABLET PO SCH (13:08)
[2023-11-22 13:13] LABS: Glucose,Whole Blood 360 mg/dL (70-110)
[2023-11-22] MEDS: INSULIN ASPART (NovoLOG) 100 UNIT/ML VIAL SQ SCH ×2 (13:18→17:32)
[2023-11-22] MEDS: SODIUM CHLORIDE 0.9% 1,000 ML IV SCH ×2 (13:18→21:49)
[2023-11-22] MEDS: ONDANSETRON 4 MG/2 ML VIAL IVP PRN ×2 (13:18→13:21)
[2023-11-22] MEDS ORDERED: INSULIN GLARGINE SQ SCH (13:19)
[2023-11-22] MEDS ORDERED: LIXISENATIDE SQ SCH (13:19)
[2023-11-22] MEDS: ACETAMINOPHEN TAB 325 MG TAB PO PRN (13:21)
[2023-11-22 13:54] LABS: Potassium 4.3 mmol/L (3.5-5.1)
[2023-11-22 13:55] LABS: African American GFR (CKD) >90 (>60 ml/min/1.73 sqM); Anion Gap 13 mmol/L; Blood Urea Nitrogen 27 mg/dL (7-17); Calcium 9.3 mg/dL (8.4-10.2); Carbon Dioxide 18 mmol/L (22-30); Chloride 99 mmol/L (98-107); Glucose 340 mg/dL (74-99); Non-African American GFR(CKD) >90 (>60 ml/min/1.73 sqM); Sodium 130 mmol/L (137-145)
--- NOTE | 2023-11-22 14:05 | P.HPIM ---
History of Present Illness H&P Date: 11/22/23 Chief Complaint: Nausea, vomiting * 53-year-old patient with past medical history significant for diabetes mellitus, hypertension, hyperlipidemia, gastric physical reflux disease presents to the emergency department with complains of nausea, vomiting, fatigue. Patient states she was tested outpatient for Covid 19 last week. Since then patient states she has been nauseous and not able to keep anything down. Patient has been having nausea, vomiting, generalized abdominal pain for the last 48 hours. She has also complained of diarrhea. * Patient states she was placed on steroid outpatient and has been taking steroids for the last several days * Workup initiated in ER included basic metabolic panel which did show metabolic acidosis and hyperglycemia, acetones were negative. Patient was resuscitated with IV fluid, serum lactate obtained was 2.8, initial potassium was 5.3 follow-up 4.3. * CT abdomen and pelvis obtained in ED this suspicion for colitis, hepatic steat osis, renal abnormality suggesting MRI * Further workup in ER included urinalysis but did show significant ketones, proteinuria and glucosuria * Patient tested positive for Covid * Patient admitted to medical floor to be treated for colitis as well as Covid 19 as well as hyperglycemia with underlying diabetes REVIEW OF SYSTEMS: Nausea, vomiting, abdominal pain CONSTITUTIONAL: No fever, no malaise, no fatigue. HEENT: No recent visual problems or hearing problems. Denied any sore throat. CARDIOVASCULAR: No chest pain, orthopnea, PND, no palpitations, no syncope. PULMONARY: No shortness of breath, no cough, no hemoptysis. GASTROINTESTINAL: Nausea, vomiting, abdominal pain NEUROLOGICAL: No headaches, no weakness, no numbness. HEMATOLOGICAL: Denies any bleeding or petechiae. GENITOURINARY: Denies any burning micturition, frequency, or urgency. MUSCULOSKELETAL/RHEUMATOLOGICAL: Denies any joint pain, swelling, or any muscle pain. ENDOCRINE: Denies any polyuria or polydipsia. PHYSICAL EXAMINATION: GENERAL: The patient is alert and oriented x3, ill appearance HEENT: Pupils are round and equally reacting to light. EOMI Normocephalic, atra umatic. No pharyngeal erythema. No thyromegaly. CARDIOVASCULAR: S1 and S2 present. No murmurs, rubs, or gallops. PULMONARY: Chest is clear to auscultation, no wheezing or crackles. ABDOMEN: Soft, nontender, nondistended, normoactive bowel sounds. No palpable organomegaly. MUSCULOSKELETAL: No joint swelling or deformity. EXTREMITIES: No cyanosis, clubbing, or pedal edema. NEUROLOGICAL: Gross neurological examination did not reveal any focal deficits. SKIN: No rashes. Past Medical History Past Medical History: Diabetes Mellitus, GERD/Reflux, Hyperlipidemia, Hypertension, Osteoarthritis (OA) Additional Past Medical History / Comment(s): SVT. ALLERGIES. NEUROPATHY IN FEET. 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 Date of last positivie culture/infection: 06/27/17 MDRO Source:: LEFT GROIN Additional Past Surgical History / Comment(s): D & C Past Anesthesia/Blood Transfusion Reactions: No Reported Reaction, Motion Sickness Past Psychological History: Depression Smoking Status: Former smoker Past Alcohol Use History: Occasional Past Drug Use History: None Reported - Past Family History Mother Family Medical History: Cancer, Deep Vein Thrombosis (DVT) Additional Family Medical History / Comment(s): RENAL CA Brother(s) Family Medical History: Deep Vein Thrombosis (DVT) Medications and Allergies Home Medications Medication Instructions Recorded Confirmed Type Albuterol Sulfate [Proventil Hfa] 1 - 2 puff INHALATION RT-Q6H PRN 07/19/17 11/22/23 History Pantoprazole Sodium [Protonix] 40 mg PO DAILY 07/19/17 11/22/23 History gemfibroziL [Lopid] 600 mg PO QAM 07/19/17 11/22/23 History Gabapentin [Neurontin] 300 mg PO TID 11/22/23 11/22/23 History Insulin Glargine/Lixisenatide 60 units SQ AC-BRKFST 11/22/23 11/22/23 History [Soliqua 100 Unit-33 Mcg/ml Pen] Metoprolol Succinate (ER) [Toprol 50 mg PO DAILY 11/22/23 11/22/23 History Xl] Pantoprazole [Protonix] 40 mg PO DAILY 11/22/23 11/22/23 History Rosuvastatin [Crestor] 10 mg PO HS 11/22/23 11/22/23 History Spironolactone 25 mg PO DAILY 11/22/23 11/22/23 History buPROPion XL [Wellbutrin XL] 150 mg PO DAILY 11/22/23 11/22/23 History dilTIAZem HCL [dilTIAZem HCL 24Hr 120 mg PO DAILY 11/22/23 11/22/23 History ER (CD)] metFORMIN HCL [Glucophage] 500 mg PO BID 11/22/23 11/22/23 History Allergies Allergy/AdvReac Type Severity Reaction Status Date / Time benazepril Allergy "throat Verified 11/22/23 11:46 closing" hydrocodone [From Vicodin] AdvReac Nausea & Verified 11/22/23 11:46 Vomiting Physical Exam Vitals: Vital Signs Temp Pulse Resp BP Pulse Ox 11/22/23 10:27 110 H 20 188/105 97 11/22/23 07:31 97.7 F 118 H 18 173/93 95 Intake and Output 11/21/23 11/22/23 11/22/23 22:59 06:59 14:59 Other: Weight 127.006 kg Results CBC & Chem 7: 11/22/23 07:59 11/22/23 13:23 Labs: Abnormal Lab Results - Last 24 Hours (Table) 11/22/23 11/22/23 11/22/23 Range/Units 07:59 07:59 07:59 Hgb 16.2 H (11.4-16.0) gm/dL VBG HCO3 (24-28) mmol/L Sodium 126 L (137-145) mmol/L Potassium 5.2 H (3.5-5.1) mmol/L Chloride 95 L (98-107) mmol/L Carbon Dioxide 12 L (22-30) mmol/L BUN 30 H (7-17) mg/dL Glucose 459 H (74-99) mg/dL Plasma Lactic Acid Rex (0.7-2.0) mmol/L AST 97 H (14-36) U/L ALT 76 H (4-34) U/L Urine Protein 2+ H (Negative) Urine Glucose (UA) 4+ H (Negative) Urine Ketones 2+ H (Negative) Urine Blood Small H (Negative) Ur Leukocyte Esterase Trace H (Negative) Hyaline Casts 3 H (0-2) /lpf Urine Mucus Rare H (None) /hpf Urine Yeast (Budding) Rare H (None) /hpf SARS-CoV-2 (PCR) (Not Detectd) 01/17/24 01/17/24 01/17/24 Range/Units 09:32 09:32 09:32 Hgb (11.4-16.0) gm/dL VBG HCO3 22 L (24-28) mmol/L Sodium (137-145) mmol/L Potassium (3.5-5.1) mmol/L Chloride (98-107) mmol/L Carbon Dioxide (22-30) mmol/L BUN (7-17) mg/dL Glucose (74-99) mg/dL Plasma Lactic Acid Rex 2.8 H* (0.7-2.0) mmol/L AST (14-36) U/L ALT (4-34) U/L Urine Protein (Negative) Urine Glucose (UA) (Negative) Urine Ketones (Negative) Urine Blood (Negative) Ur Leukocyte Esterase (Negative) Hyaline Casts (0-2) /lpf Urine Mucus (None) /hpf Urine Yeast (Budding) (None) /hpf SARS-CoV-2 (PCR) Detected A (Not Detectd) Assessment and Plan Assessment: Assessment and plan Acute gastroenteritis/colitis COVID-19 vital infection with gastroenteritis Diabetes mellitus type II with hyperglycemia Metabolic acidosis Lactic acidosis secondary to dehydration Acute hyponatremia Transaminitis secondary to Covid * In regards to gastroenteritis, CT abdomen pelvis reviewed, patient started on Rocephin and Flagyl, continue patient on diabetic diet, stool cultures ordered * In regards to hyperglycemia with diabetes continue patient on high-dose insulin, continue home regimen of Lantus follow-up panel ordered * In regards to lactic acidosis patient given 2 L of normal saline bolus and additional fluid bolus ordered continue maintenance hydration * In regards to hyponatremia follow-up on serum sodium levels * In regards to transaminitis follow-up on liver profile in regards to Covid patient remains on room air will avoid steroids in the setting of hyperglycemia * Status is full code Time with Patient: Greater than 30
[2023-11-22] MEDS ORDERED: BENZOCAINE/MENTHOL LOZENG 1 EACH LOZENGE MUCOUS MEM PRN (15:12)
[2023-11-22] MEDS: guaiFENesin 600 MG TABLET.ER PO SCH ×2 (15:45→20:59)
[2023-11-22] MEDS: INSULIN DETEMIR (LEVEMIR) 100 UNIT/ML SYR SQ SCH (15:45)
[2023-11-22] MEDS: metroNIDAZOLE-NS PMX 500 MG in SALINE 1 100ML.BAG IVPB SCH (15:45)
[2023-11-22] MEDS: GABAPENTIN 300 MG CAP PO SCH ×2 (15:51→21:02)
[2023-11-22] MEDS: HEPARIN SODIUM,PORCINE 5,000 UNIT/ML 1 ML VIAL SQ SCH (15:51)
[2023-11-22 17:20] LABS: Glucose,Whole Blood 239 mg/dL (70-110)
[2023-11-22] MEDS ORDERED: metFORMIN 500 MG TAB PO SCH (17:30)
[2023-11-22 18:36] LABS: African American GFR (CKD) >90 (>60 ml/min/1.73 sqM); Anion Gap 11 mmol/L; Blood Urea Nitrogen 25 mg/dL (7-17); Calcium 9.5 mg/dL (8.4-10.2); Carbon Dioxide 17 mmol/L (22-30); Chloride 101 mmol/L (98-107); Glucose 219 mg/dL (74-99); Non-African American GFR(CKD) >90 (>60 ml/min/1.73 sqM); Potassium 4.1 mmol/L (3.5-5.1); Sodium 129 mmol/L (137-145)
[2023-11-22] MEDS: ATORVASTATIN 20 MG TAB PO SCH (21:00)
[2023-11-23] MEDS: metroNIDAZOLE-NS PMX 500 MG in SALINE 1 100ML.BAG IVPB SCH ×3 (00:11→15:49)
[2023-11-23] MEDS: HEPARIN SODIUM,PORCINE 5,000 UNIT/ML 1 ML VIAL SQ SCH ×3 (00:11→15:49)
[2023-11-23 05:40] LABS: Glucose,Whole Blood 201 mg/dL (70-110)
[2023-11-23] MEDS: INSULIN ASPART (NovoLOG) 100 UNIT/ML VIAL SQ SCH ×4 (06:54→17:21)
[2023-11-23] MEDS: INSULIN DETEMIR (LEVEMIR) 100 UNIT/ML SYR SQ SCH (06:54)
[2023-11-23] MEDS: ONDANSETRON 4 MG/2 ML VIAL IVP PRN ×2 (06:55→16:01)
[2023-11-23] MEDS ORDERED: Insulin Glargine/Lixisenatide [Soliqua 100 Unit-33 Mcg/Ml Pen] 3 ML In SQ SCH (07:30)
[2023-11-23] MEDS: PANTOPRAZOLE 40 MG TABLET PO SCH (07:34)
[2023-11-23] MEDS: ALBUTEROL HFA INHALER INHALATION PRN ×2 (08:42→12:26)
[2023-11-23] MEDS ORDERED: PANTOPRAZOLE 40 MG TABLET PO SCH (09:00)
--- NOTE | 2023-11-23 09:19 | P.CONS ---
History of Present Illness - Reason for Consult Consult date: 11/22/23 COVID, sepsis, colitis Requesting physician: Aide Dukes - Chief Complaint Nausea vomiting and diarrhea x few days - History of Present Illness Patient is a 53-year-old female with a past medical history difficult for diabetes mellitus hypertension hyperlipidemia reflux patient presenting to the hospital for evaluation of nausea vomiting and diarrhea this patient symptom has been going on for few days before presentation to the hospital and the patient was recently diagnosed with COVID-19 by her PCP patient has been complaining of unable to keep anything down and did have a multiple loose stools patient denies having any blood or mucus in the stools did have crampy lower abdominal pain moderate intensity without any radiation with the symptoms the patient has been evaluated on presentation to the hospital the patient was afebrile no fever have recorded subsequently patient was not tachycardic hypotensive or hypoxic patient did have a white count of 8.9 creatinine was normal liver enzymes mildly elevated lactic acid was elevated urine has been ne gative tested positive for COVID RSV influenza was negative patient did have a CT abdominal pelvis mild wall thickening of the cecum and ascending colon correlate for colitis no other acute abdominal process chest x-ray was negative for acute cardiopulmonary disease patient was admitted to the hospital infectious disease was consulted for further management Review of Systems Positive point and negatives has been mentioned in the HPI, complete review of systems was performed and all other systems are negative Past Medical History Past Medical History: Diabetes Mellitus, GERD/Reflux, Hyperlipidemia, Hypertension, Osteoarthritis (OA) Additional Past Medical History / Comment(s): SVT. ALLERGIES. NEUROPATHY IN FEET. 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 Year Discovered:: 06/27/17 MDRO Source:: LEFT GROIN Additional Past Surgical History / Comment(s): D & C Past Anesthesia/Blood Transfusion Reactions: No Reported Reaction, Motion Sick ness Past Psychological History: Depression Smoking Status: Former smoker Past Alcohol Use History: Occasional Past Drug Use History: None Reported - Past Family History Mother Family Medical History: Cancer, Deep Vein Thrombosis (DVT) Additional Family Medical History / Comment(s): RENAL CA Brother(s) Family Medical History: Deep Vein Thrombosis (DVT) Medications and Allergies Home Medications Medication Instructions Recorded Confirmed Type Albuterol Sulfate [Proventil Hfa] 1 - 2 puff INHALATION RT-Q6H PRN 07/19/17 11/22/23 History Pantoprazole Sodium [Protonix] 40 mg PO DAILY 07/19/17 11/22/23 History gemfibroziL [Lopid] 600 mg PO QAM 07/19/17 11/22/23 History Gabapentin [Neurontin] 300 mg PO TID 11/22/23 11/22/23 History Insulin Glargine/Lixisenatide 60 units SQ AC-BRKFST 11/22/23 11/22/23 History [Soliqua 100 Unit-33 Mcg/ml Pen] Metoprolol Succinate (ER) [Toprol 50 mg PO DAILY 11/22/23 11/22/23 History XL] Pantoprazole [Protonix] 40 mg PO DAILY 11/22/23 11/22/23 History Rosuvastatin [Crestor] 10 mg PO HS 11/22/23 11/22/23 History Spironolactone 25 mg PO DAILY 11/22/23 11/22/23 History buPROPion XL [Wellbutrin XL] 150 mg PO DAILY 11/22/23 11/22/23 History dilTIAZem HCL [dilTIAZem HCL 24Hr 120 mg PO DAILY 11/22/23 11/22/23 History ER (CD)] metFORMIN HCL [Glucophage] 500 mg PO BID 11/22/23 11/22/23 History cefUROXime axetiL [Ceftin] 500 mg PO BID 3 Days #6 tab 11/25/23 Rx guaiFENesin [Mucinex] 600 mg PO Q12HR 5 Days #10 tab 11/25/23 Rx metroNIDAZOLE [Flagyl] 500 mg PO TID 3 Days #9 tab 11/25/23 Rx Allergies Allergy/AdvReac Type Severity Reaction Status Date / Time benazepril Allergy "throat Verified 11/22/23 11:46 closing" hydrocodone [From Vicodin] AdvReac Nausea & Verified 11/22/23 11:46 Vomiting Physical Exam Vitals: Vital Signs Temp Pulse Resp BP Pulse Ox 11/22/23 10:27 110 H 20 188/105 97 11/22/23 07:31 97.7 F 118 H 18 173/93 95 Intake and Output 11/22/23 11/22/23 11/22/23 06:59 14:59 22:59 Other: Weight 127.006 kg GENERAL DESCRIPTION: Middle-aged female lying in bed, no distress. No tachypnea or accessory muscle of respiration use. HEENT: Shows Pallor , no scleral icterus. Oral mucous membrane is dry. NECK: Trachea central, no thyromegaly. LUNGS: Unlabored breathing. Coarse breath sounds bilaterally no wheeze or crackle. HEART: S1, S2, regular rate and rhythm. No loud murmur ABDOMEN: Soft, no tenderness , guarding or rigidity, no organomegaly EXTREMITIES: No edema of feet. SKIN: No rash, no masses palpable. NEUROLOGICAL: The patient is awake, alert, oriented x3, mood and affect normal. Results CBC & Chem 7: 11/26/23 06:30 11/26/23 06:30 Labs: Abnormal Lab Results - Last 24 Hours (Table) 11/22/23 11/22/23 11/22/23 Range/Units 07:59 07:59 07:59 Hgb 16.2 H (11.4-16.0) gm/dL VBG HCO3 (24-28) mmol/L Sodium 126 L (137-145) mmol/L Potassium 5.2 H (3.5-5.1) mmol/L Chloride 95 L (98-107) mmol/L Carbon Dioxide 12 L (22-30) mmol/L BUN 30 H (7-17) mg/dL Glucose 459 H (74-99) mg/dL POC Glucose (mg/dL) (70-110) mg/dL Plasma Lactic Acid Rex (0.7-2.0) mmol/L AST 97 H (14-36) U/L ALT 76 H (4-34) U/L Urine Protein 2+ H (Negative) Urine Glucose (UA) 4+ H (Negative) Urine Ketones 2+ H (Negative) Urine Blood Small H (Negative) Ur Leukocyte Esterase Trace H (Negative) Hyaline Casts 3 H (0-2) /lpf Urine Mucus Rare H (None) /hpf Urine Yeast (Budding) Rare H (None) /hpf SARS-CoV-2 (PCR) (Not Detectd) 11/22/23 11/22/23 11/22/23 Range/Units 09:32 09:32 09:32 Hgb (11.4-16.0) gm/dL VBG HCO3 22 L (24-28) mmol/L Sodium (137-145) mmol/L Potassium (3.5-5.1) mmol/L Chloride (98-107) mmol/L Carbon Dioxide (22-30) mmol/L BUN (7-17) mg/dL Glucose (74-99) mg/dL POC Glucose (mg/dL) (70-110) mg/dL Plasma Lactic Acid Rex 2.8 H* (0.7-2.0) mmol/L AST (14-36) U/L ALT (4-34) U/L Urine Protein (Negative) Urine Glucose (UA) (Negative) Urine Ketones (Negative) Urine Blood (Negative) Ur Leukocyte Esterase (Negative) Hyaline Casts (0-2) /lpf Urine Mucus (None) /hpf Urine Yeast (Budding) (None) /hpf SARS-CoV-2 (PCR) Detected A (Not Detectd) 11/22/23 11/22/23 Range/Units 13:07 13:23 Hgb (11.4-16.0) gm/dL VBG HCO3 (24-28) mmol/L Sodium 130 L (137-145) mmol/L Potassium (3.5-5.1) mmol/L Chloride (98-107) mmol/L Carbon Dioxide 18 L (22-30) mmol/L BUN 27 H (7-17) mg/dL Glucose 340 H (74-99) mg/dL POC Glucose (mg/dL) 360 H (70-110) mg/dL Plasma Lactic Acid Rex (0.7-2.0) mmol/L AST (14-36) U/L ALT (4-34) U/L Urine Protein (Negative) Urine Glucose (UA) (Negative) Urine Ketones (Negative) Urine Blood (Negative) Ur Leukocyte Esterase (Negative) Hyaline Casts (0-2) /lpf Urine Mucus (None) /hpf Urine Yeast (Budding) (None) /hpf SARS-CoV-2 (PCR) (Not Detectd) Assessment and Plan (1) COVID-19 Status: Acute Code(s): U07.1 - COVID-19 SNOMED Code(s): 173725007 (2) Colitis Status: Acute Code(s): K52.9 - NONINFECTIVE GASTROENTERITIS AND COLITIS, UNSPECIFIED SNOMED Code(s): 75546482 Plan: 1patient presented to hospital with predominantly GI symptoms of nausea vomiting and diarrhea and this patient recently diagnosed with the COVID-19 and there was evidence of colitis involving the cecum and ascending colon possibly related to COVID-19 less likely related to bacterial pathogen in this patient with no fever or elevated white count however not entirely excluded 2-patient tested positive for COVID-19 however not hypoxic and chest x-ray has been negative treatment will be mostly supportive 3-we will obtain stool studies including stool culture and stool for C. difficile 4-continue with empiric Rocephin and Flagyl while waiting for the workup to be completed avoid antimotility agent We will follow on clinical condition and cultures to further adjust medication if needed Thank you for this consultation we will follow the patient along with you Dictation was produced using [employer] dictation software. please excuse any grammatical, word or spelling errors. Time with Patient: Greater than 30
[2023-11-23] MEDS: guaiFENesin 600 MG TABLET.ER PO SCH ×2 (10:22→21:13)
[2023-11-23] MEDS: SPIRONOLACTONE 25 MG TAB PO SCH (10:22)
[2023-11-23] MEDS: METOPROLOL SUCCINATE (ER) 50 MG TAB.ER.24H PO SCH (10:22)
[2023-11-23] MEDS: FENOFIBRATE 160 MG TAB PO SCH (10:22)
[2023-11-23] MEDS: GABAPENTIN 300 MG CAP PO SCH ×3 (10:22→21:13)
[2023-11-23] MEDS: DILTIAZEM CD 120 MG CAP.ER.24H PO SCH (10:55)
[2023-11-23] MEDS: buPROPion XL 150 MG TAB.ER.24H PO SCH (10:55)
[2023-11-23 11:13] LABS: Basophils # (A) 0.02 X 10*3/uL (0.00-0.10); Basophils % (A) 0.2 %; Eosinophils # (A) 0.14 X 10*3/uL (0.04-0.35); Eosinophils % (A) 1.5 %; HCT 40.3 % (37.2-46.3); HGB 14.1 g/dL (12.0-15.0); Lymphocytes # (A) 2.99 X 10*3/uL (0.90-5.00); Lymphocytes % (A) 32.1 %; MCH 30.5 pg (27.0-32.0); Mean Platelet Volume 9.9 FL (9.5-12.2); Monocytes # (A) 0.53 X 10*3/uL (0.20-1.00); Monocytes % (A) 5.7 %; NRBC Per 100 WBC 0 X 10*3/uL (0.00-0.01); Neutrophils # (A) 5.56 X 10*3/uL (1.80-7.70); Neutrophils % (A) 59.7 %; Platelet Count 454 X 10*3/uL (140-440); RBC 4.63 X 10*6/uL (4.10-5.20); RDW 12.2 % (11.5-14.5); WBC 9.31 X 10*3/uL (4.50-10.00)
[2023-11-23 11:38] LABS: Glucose,Whole Blood 274 mg/dL (70-110)
[2023-11-23 11:43] LABS: BUN/Creat Ratio 33.86 Ratio (12.00-20.00); Blood Urea Nitrogen 23.7 mg/dL (9.0-27.0); Calcium 9.3 mg/dL (8.7-10.3); Carbon Dioxide 18.2 mmol/L (21.6-31.8); Chloride 96 mmol/L (96-109); Glucose 195 mg/dL (70-110); Potassium 4.2 mmol/L (3.5-5.5); Sodium 130 mmol/L (135-145)
--- NOTE | 2023-11-23 12:39 | P.PN ---
Subjective Progress Note Date: 11/23/23 * 53-year-old patient with past medical history significant for diabetes mellitus, hypertension, hyperlipidemia, gastric physical reflux disease presents to the emergency department with complains of nausea, vomiting, fatigue. Patient states she was tested outpatient for Covid 19 last week. Since then patient states she has been nauseous and not able to keep anything down. Patient has been having nausea, vomiting, generalized abdominal pain for the last 48 hours. She has also complained of diarrhea. * Patient states she was placed on steroid outpatient and has been taking steroids for the last several days * Workup initiated in ER included basic metabolic panel which did show metabolic acidosis and hyperglycemia, acetones were negative. Patient was resuscitated with IV fluid, serum lactate obtained was 2.8, initial potassium was 5.3 follow-up 4.3. * CT abdomen and pelvis obtained in ED this suspicion for colitis, hepatic steatosis, renal abnormality suggesting MRI * Further workup in ER included urinalysis but did show significant ketones, proteinuria and glucosuria * Patient tested positive for Covid * Patient admitted to medical floor to be treated for colitis as well as Covid 19 as well as hyperglycemia with underlying diabetes * 11/23/2023: Patient seen and evaluated bedside, CODE STATUS discussed at this time patient will stay full code. Blood work reviewed CBC showed WBC 9.3 hemoglobin within normal limits serum chemistry shows sodium 1:30 B1 27 creatinine 0.7 glucose 195 HbA1c 8.4. REVIEW OF SYSTEMS: CONSTITUTIONAL: No fever, no malaise, no fatigue. HEENT: No recent visual problems or hearing problems. Denied any sore throat. CARDIOVASCULAR: No chest pain, orthopnea, PND, no palpitations, no syncope. PULMONARY: Shortness of breath GASTROINTESTINAL: Nausea, vomiting RESOLVED , abdominal pain IMPROVED NEUROLOGICAL: No headaches, no weakness, no numbness. HEMATOLOGICAL: Denies any bleeding or petechiae. GENITOURINARY: Denies any burning micturition, frequency, or urgency. MUSCULOSKELETAL/RHEUMATOLOGICAL: Denies any joint pain, swelling, or any muscle pain. ENDOCRINE: Denies any polyuria or polydipsia. PHYSICAL EXAMINATION: GENERAL: The patient is alert and oriented x3, ill appearance HEENT: Pupils are round and equally reacting to light. EOMI Normocephalic, atraumatic. No pharyngeal erythema. No thyromegaly. CARDIOVASCULAR: S1 and S2 present. No murmurs, rubs, or gallops. PULMONARY: Chest is clear to auscultation, no wheezing or crackles. ABDOMEN: Soft, nontender, nondistended, normoactive bowel sounds. No palpable organomegaly. MUSCULOSKELETAL: No joint swelling or deformity. EXTREMITIES: No cyanosis, clubbing, or pedal edema. NEUROLOGICAL: Gross neurological examination did not reveal any focal deficits. SKIN: No rashes. Objective - Vital Signs Vital signs: Vital Signs Temp 97.8 F 11/23/23 07:20 Pulse 93 11/23/23 09:26 Resp 18 11/23/23 09:26 BP 177/103 11/23/23 07:20 Pulse Ox 96 11/23/23 07:20 FiO2 Intake & Output 11/22/23 11/23/23 11/23/23 18:59 06:59 18:59 Intake Total 900 Balance 900 Weight 127.006 kg 127.006 kg Intake: Oral 900 Other: Voiding Method Toilet Toilet # Voids 4 - Labs CBC & Chem 7: 11/23/23 05:43 11/23/23 05:43 Labs: Abnormal Lab Results - Last 24 Hours (Table) 11/22/23 11/22/23 11/22/23 Range/Units 13:07 13:23 17:17 Plt Count (140-440) X 10*3/uL Immature Gran # (0.00-0.04) X 10*3/uL Sodium 130 L (137-145) mmol/L Carbon Dioxide 18 L (22-30) mmol/L Anion Gap (4.00-12.00) mmol/L BUN 27 H (7-17) mg/dL BUN/Creatinine Ratio (12.00-20.00) Ratio Glucose 340 H (74-99) mg/dL POC Glucose (mg/dL) 360 H 239 H (70-110) mg/dL Hemoglobin A1c (<=6.0) % 11/22/23 11/23/23 11/23/23 Range/Units 17:52 05:38 05:43 Plt Count (140-440) X 10*3/uL Immature Gran # (0.00-0.04) X 10*3/uL Sodium 129 L (137-145) mmol/L Carbon Dioxide 17 L (22-30) mmol/L Anion Gap (4.00-12.00) mmol/L BUN 25 H (7-17) mg/dL BUN/Creatinine Ratio (12.00-20.00) Ratio Glucose 219 H (74-99) mg/dL POC Glucose (mg/dL) 201 H (70-110) mg/dL Hemoglobin A1c 8.4 H (<=6.0) % 11/23/23 11/23/23 11/23/23 Range/Units 05:43 05:43 11:36 Plt Count 454 H (140-440) X 10*3/uL Immature Gran # 0.07 H (0.00-0.04) X 10*3/uL Sodium 130 L (137-145) mmol/L Carbon Dioxide 18.2 L (22-30) mmol/L Anion Gap 15.80 H (4.00-12.00) mmol/L BUN (7-17) mg/dL BUN/Creatinine Ratio 33.86 H (12.00-20.00) Ratio Glucose 195 H (74-99) mg/dL POC Glucose (mg/dL) 274 H (70-110) mg/dL Hemoglobin A1c (<=6.0) % Assessment and Plan Assessment: Assessment and plan Acute gastroenteritis/colitis COVID-19 vital infection with gastroenteritis Diabetes mellitus type II with hyperglycemia Metabolic acidosis Lactic acidosis secondary to dehydration Acute hyponatremia Transaminitis secondary to Covid * In regards to gastroenteritis, CT abdomen pelvis reviewed, patient started on Rocephin and Flagyl day 2 , continue patient on diabetic diet, stool cultures ordered * In regards to hyperglycemia with diabetes continue patient on high-dose insulin, continue home regimen of Lantus follow-up panel ordered * In regards to lactic acidosis patient given 2 L of normal saline bolus and additional fluid bolus ordered continue maintenance hydration * In regards to hyponatremia follow-up on serum sodium levels, * In regards to transaminitis follow-up on liver profile in regards to Covid patient remains on room air will avoid steroids in the setting of hyperglycemia * CT chest ordered to rule out pulmonary embolism patient does complain of shortness of breath however on room air saturation more than 90% * Status is full code, discussed with patient in detail on 11/23/23 Time with Patient: Greater than 30
[2023-11-23] MEDS ORDERED: DEXTROSE 50% SYRINGE 50 ML IVP PRN ×2 (14:53)
--- NOTE | 2023-11-23 15:33 | P.PN ---
Subjective Progress Note Date: 11/23/23 Principal diagnosis: Reason for follow-up is COVID-19 and colitis Patient is a 53-year-old female with a past medical history difficult for diabetes mellitus hypertension hyperlipidemia reflux patient presenting to the hospital for evaluation of nausea vomiting and diarrhea, patient has been diagnosed with COVID also have evidence of colitis on the CT On today's evaluation that is 11/23/2023 the patient denies having any fever or any chills, the patient is breathing comfortably on room air, patient is recommending of cough moderate intensity not bring up any sputum complaining of nausea vomiting and continued to have diarrhea no blood or mucus in the stool Patient white count is 9.31, creatinine 0.7 Objective - Vital Signs Vital signs: Vital Signs Temp 97.8 F 11/23/23 07:20 Pulse 93 11/23/23 09:26 Resp 18 11/23/23 09:26 BP 177/103 11/23/23 07:20 Pulse Ox 96 11/23/23 07:20 FiO2 Intake & Output 11/22/23 11/23/23 11/23/23 18:59 06:59 18:59 Intake Total 900 Balance 900 Weight 127.006 kg 127.006 kg Intake: Oral 900 Other: Voiding Method Toilet Toilet # Voids 4 - Exam GENERAL DESCRIPTION: Middle-aged female up in the bed in no distress RESPIRATORY SYSTEM: Unlabored breathing , coarse breath sounds bilaterally HEART: S1 S2 regular rate and rhythm , ABDOMEN: Soft , no tenderness EXTREMITIES: No edema feet - Labs CBC & Chem 7: 11/23/23 05:43 11/23/23 05:43 Labs: Abnormal Lab Results - Last 24 Hours (Table) 11/22/23 11/22/23 11/22/23 Range/Units 13:23 17:17 17:52 Plt Count (140-440) X 10*3/uL Immature Gran # (0.00-0.04) X 10*3/uL Sodium 130 L 129 L (137-145) mmol/L Carbon Dioxide 18 L 17 L (22-30) mmol/L Anion Gap (4.00-12.00) mmol/L BUN 27 H 25 H (7-17) mg/dL BUN/Creatinine Ratio (12.00-20.00) Ratio Glucose 340 H 219 H (74-99) mg/dL POC Glucose (mg/dL) 239 H (70-110) mg/dL Hemoglobin A1c (<=6.0) % 11/23/23 11/23/23 11/23/23 Range/Units 05:38 05:43 05:43 Plt Count 454 H (140-440) X 10*3/uL Immature Gran # 0.07 H (0.00-0.04) X 10*3/uL Sodium (137-145) mmol/L Carbon Dioxide (22-30) mmol/L Anion Gap (4.00-12.00) mmol/L BUN (7-17) mg/dL BUN/Creatinine Ratio (12.00-20.00) Ratio Glucose (74-99) mg/dL POC Glucose (mg/dL) 201 H (70-110) mg/dL Hemoglobin A1c 8.4 H (<=6.0) % 11/23/23 11/23/23 Range/Units 05:43 11:36 Plt Count (140-440) X 10*3/uL Immature Gran # (0.00-0.04) X 10*3/uL Sodium 130 L (137-145) mmol/L Carbon Dioxide 18.2 L (22-30) mmol/L Anion Gap 15.80 H (4.00-12.00) mmol/L BUN (7-17) mg/dL BUN/Creatinine Ratio 33.86 H (12.00-20.00) Ratio Glucose 195 H (74-99) mg/dL POC Glucose (mg/dL) 274 H (70-110) mg/dL Hemoglobin A1c (<=6.0) % Assessment and Plan (1) COVID-19 Current Visit: Yes Status: Acute Code(s): U07.1 - COVID-19 SNOMED Code(s): 249438996 (2) Colitis Current Visit: Yes Status: Acute Code(s): K52.9 - NONINFECTIVE GASTROENTERITIS AND COLITIS, UNSPECIFIED SNOMED Code(s): 53093275 Plan: 1patient presented to hospital with predominantly GI symptoms of nausea vomiting and diarrhea and this patient recently diagnosed with the COVID-19 and there was evidence of colitis involving the cecum and ascending colon possibly related to COVID-19 less likely related to bacterial pathogen in this patient with no fever or elevated white count however not entirely excluded 2-patient tested positive for COVID-19 however not hypoxic and chest x-ray has been negative treatment will be mostly supportive 3- stool studies including stool culture and stool for C. difficile Ordered yesterday but not collected 4-patient to continue with empiric Rocephin and Flagyl while waiting for the workup to be completed and monitor clinical course closely Dictation was produced using [employer] dictation software. please excuse any grammatical, word or spelling errors. Time with Patient: Less than 30
--- NOTE | 2023-11-23 15:55 | CT ---
EXAMINATION TYPE: CT chest angio for PE DATE OF EXAM: 11/23/2023 COMPARISON: NONE HISTORY: Covid, chest pain rule out pulmonary embolism CT DLP: 755.7 mGycm. Automated Exposure Control for Dose Reduction was Utilized. CONTRAST: CTA scan of the thorax is performed with IV Contrast, patient injected with 100ML mL of Isovue 370, p ulmonary embolism protocol. MIP Images are created on CT scanner and reviewed. FINDINGS: Exam is suboptimal as there is motion artifact degradation. This limits evaluation particul hector for subcentimeter nodules. LUNGS: No focal consolidation. Mild linear scarring or atelectasis in both lower lungs. No pleural ef fusion or pneumothorax seen bilaterally. MEDIASTINUM: There is satisfactory enhancement of the pulmonary artery and its branches, there is no CT evidence for pulmonary embolism. No thoracic aortic aneurysm or dissection. There are no greater than 1 cm hilar or mediastinal lymph nodes. No cardiomegaly or pericardial effusion is seen. OTHER: Scoliotic curvature with multilevel spurring in the spine. IMPRESSION: 1. Suboptimal study without acute pulmonary embolism. 2. No suspicious acute pulmonary parenchymal process.
[2023-11-23 17:02] LABS: Glucose,Whole Blood 183 mg/dL (70-110)
[2023-11-23] MEDS: SODIUM CHLORIDE 0.9% 1,000 ML IV SCH ×2 (20:08→21:13)
[2023-11-23] MEDS: ATORVASTATIN 20 MG TAB PO SCH (21:13)
[2023-11-24] MEDS: metroNIDAZOLE-NS PMX 500 MG in SALINE 1 100ML.BAG IVPB SCH ×3 (00:16→17:57)
[2023-11-24] MEDS: ONDANSETRON 4 MG/2 ML VIAL IVP PRN ×3 (00:16→17:56)
[2023-11-24] MEDS: HEPARIN SODIUM,PORCINE 5,000 UNIT/ML 1 ML VIAL SQ SCH ×3 (00:16→17:56)
[2023-11-24] MEDS: SODIUM CHLORIDE 0.9% 1,000 ML IV SCH ×2 (00:21→14:12)
[2023-11-24 06:59] LABS: Glucose,Whole Blood 259 mg/dL (70-110)
[2023-11-24] MEDS: PANTOPRAZOLE 40 MG TABLET PO SCH (07:03)
[2023-11-24] MEDS: INSULIN DETEMIR (LEVEMIR) 100 UNIT/ML SYR SQ SCH (07:03)
[2023-11-24] MEDS: INSULIN ASPART (NovoLOG) 100 UNIT/ML VIAL SQ SCH ×6 (07:45→17:58)
[2023-11-24] MEDS: METOPROLOL SUCCINATE (ER) 50 MG TAB.ER.24H PO SCH (08:18)
[2023-11-24] MEDS: guaiFENesin 600 MG TABLET.ER PO SCH ×2 (08:18→22:07)
[2023-11-24] MEDS: FENOFIBRATE 160 MG TAB PO SCH (08:18)
[2023-11-24] MEDS: DILTIAZEM CD 120 MG CAP.ER.24H PO SCH (08:19)
[2023-11-24] MEDS: SPIRONOLACTONE 25 MG TAB PO SCH (08:19)
[2023-11-24] MEDS: buPROPion XL 150 MG TAB.ER.24H PO SCH (08:20)
[2023-11-24] MEDS: GABAPENTIN 300 MG CAP PO SCH ×3 (08:22→22:07)
[2023-11-24] MEDS: ACETAMINOPHEN TAB 325 MG TAB PO PRN (08:22)
[2023-11-24] MEDS: metFORMIN 500 MG TAB PO SCH ×2 (09:37→18:03)
[2023-11-24 10:13] LABS: HGB 14.8 gm/dL (11.4-16.0); MCH 31.4 pg (25.0-35.0); MCHC 34.3 g/dL (31.0-37.0); MCV 91.4 fL (80.0-100.0); Mean Platelet Volume 8.9; RDW 12.2 % (11.5-15.5); WBC 8.9 k/uL (3.8-10.6)
[2023-11-24 10:27] LABS: Platelet Count 471 k/uL (150-450)
[2023-11-24 10:34] LABS: African American GFR (CKD) >90 (>60 ml/min/1.73 sqM); Anion Gap 11 mmol/L; Blood Urea Nitrogen 15 mg/dL (7-17); Calcium 9.4 mg/dL (8.4-10.2); Carbon Dioxide 16 mmol/L (22-30); Chloride 103 mmol/L (98-107); Glucose 221 mg/dL (74-99); Non-African American GFR(CKD) >90 (>60 ml/min/1.73 sqM); Potassium 3.9 mmol/L (3.5-5.1); Sodium 130 mmol/L (137-145)
[2023-11-24 11:50] LABS: C Reactive Protein <0.5 mg/dL (<1.0)
[2023-11-24 12:00] LABS: Glucose,Whole Blood 175 mg/dL (70-110)
--- NOTE | 2023-11-24 12:11 | P.PN ---
Subjective Progress Note Date: 11/24/23 * 53-year-old patient with past medical history significant for diabetes mellitus, hypertension, hyperlipidemia, gastric physical reflux disease presents to the emergency department with complains of nausea, vomiting, fatigue. Patient states she was tested outpatient for Covid 19 last week. Since then patient states she has been nauseous and not able to keep anything down. Patient has been having nausea, vomiting, generalized abdominal pain for the last 48 hours. She has also complained of diarrhea. * Patient states she was placed on steroid outpatient and has been taking steroids for the last several days * Workup initiated in ER included basic metabolic panel which did show metabolic acidosis and hyperglycemia, acetones were negative. Patient was resuscitated with IV fluid, serum lactate obtained was 2.8, initial potassium was 5.3 follow-up 4.3. * CT abdomen and pelvis obtained in ED this suspicion for colitis, hepatic steatosis, renal abnormality suggesting MRI * Further workup in ER included urinalysis but did show significant ketones, proteinuria and glucosuria * Patient tested positive for Covid * Patient admitted to medical floor to be treated for colitis as well as Covid 19 as well as hyperglycemia with underlying diabetes * 11/23/2023: Patient seen and evaluated bedside, CODE STATUS discussed at this time patient will stay full code. Blood work reviewed CBC showed WBC 9.3 hemoglobin within normal limits serum chemistry shows sodium 1:30 B1 27 creatinine 0.7 glucose 195 HbA1c 8.4. * 11/24/2023: Patient seen and evaluated bedside, patient says appetite has improved abdominal discomfort still present, CBC showed normal WBC count normal hemoglobin, serum chemistry shows sodium of 1:30 creatinine within normal limits A1c 8.1 CRP within normal limits. CT chest negative for pul monary embolism continue current antibiotic with plan to discharge home within the next 24 hours. Continue on current insulin regimen patient started back on metformin REVIEW OF SYSTEMS: CONSTITUTIONAL: No fever, no malaise, no fatigue. HEENT: No recent visual problems or hearing problems. Denied any sore throat. CARDIOVASCULAR: No chest pain, orthopnea, PND, no palpitations, no syncope. PULMONARY: Shortness of breath improved GASTROINTESTINAL: Nausea, vomiting RESOLVED , abdominal pain IMPROVED NEUROLOGICAL: No headaches, no weakness, no numbness. HEMATOLOGICAL: Denies any bleeding or petechiae. GENITOURINARY: Denies any burning micturition, frequency, or urgency. MUSCULOSKELETAL/RHEUMATOLOGICAL: Denies any joint pain, swelling, or any muscle pain. ENDOCRINE: Denies any polyuria or polydipsia. PHYSICAL EXAMINATION: GENERAL: The patient is alert and oriented x3, ill appearance HEENT: Pupils are round and equally reacting to light. EOMI Normocephalic, atraumatic. No pharyngeal erythema. No thyromegaly. CARDIOVASCULAR: S1 and S2 present. No murmurs, rubs, or gallops. PULMONARY: Chest is clear to auscultation, no wheezing or crackles. ABDOMEN: Soft, nontender, nondistended, normoactive bowel sounds. No palpable organomegaly. MUSCULOSKELETAL: No joint swelling or deformity. EXTREMITIES: No cyanosis, clubbing, or pedal edema. NEUROLOGICAL: Gross neurological examination did not reveal any focal deficits. SKIN: No rashes. Objective - Vital Signs Vital signs: Vital Signs Temp 97.6 F 11/24/23 07:41 Pulse 89 11/24/23 07:41 Resp 18 11/24/23 07:41 BP 169/100 11/24/23 07:41 Pulse Ox 100 11/24/23 07:41 FiO2 Intake & Output 11/23/23 11/24/23 11/24/23 18:59 06:59 18:59 Intake Total 1300 Output Total 50 Balance 1250 Intake: Intake, IV Titration 1300 Amount Sodium Chloride 0.9% 1, 1200 000 ml @ 100 mls/hr IV . Q10H [facility] Rx#:[id number] metroNIDAZOLE-NS PMX 500 100 mg In Saline 1 100ml.bag @ 100 mls/hr IVPB Q8HR [facility] Rx#:[id number] Output: Emesis 50 Other: Voiding Method Toilet # Voids 5 2 1 # Bowel Movements 2 - Labs CBC & Chem 7: 11/24/23 06:30 11/24/23 06:30 Labs: Abnormal Lab Results - Last 24 Hours (Table) 11/23/23 11/24/23 11/24/23 Range/Units 17:01 06:30 06:30 Plt Count 471 H D (150-450) k/uL Sodium (137-145) mmol/L Carbon Dioxide (22-30) mmol/L Creatinine (0.52-1.04) mg/dL Glucose (74-99) mg/dL POC Glucose (mg/dL) 183 H (70-110) mg/dL Hemoglobin A1c 8.1 H (<=6.0) % 11/24/23 11/24/23 11/24/23 Range/Units 06:30 06:57 11:59 Plt Count (150-450) k/uL Sodium 130 L (137-145) mmol/L Carbon Dioxide 16 L (22-30) mmol/L Creatinine 0.48 L (0.52-1.04) mg/dL Glucose 221 H (74-99) mg/dL POC Glucose (mg/dL) 259 H 175 H (70-110) mg/dL Hemoglobin A1c (<=6.0) % Microbiology - Last 24 Hours (Table) 11/22/23 17:52 Blood Culture - Preliminary Blood Assessment and Plan Assessment: Assessment and plan Acute gastroenteritis/colitis COVID-19 vital infection with gastroenteritis Diabetes mellitus type II with hyperglycemia Metabolic acidosis Lactic acidosis secondary to dehydration Acute hyponatremia Transaminitis secondary to Covid * In regards to gastroenteritis, CT abdomen pelvis reviewed, patient started on Rocephin and Flagyl day 3/7 , continue patient on diabetic diet, stool cultures ordered, blood cultures no growth * In regards to hyperglycemia with diabetes continue patient on high-dose insulin, continue home regimen of Lantus follow-up panel ordered * In regards to lactic acidosis patient given 2 L of normal saline bolus and additional fluid bolus ordered continue maintenance hydration, blood cultures no growth * In regards to hyponatremia follow-up on serum sodium levels, * In regards to transaminitis follow-up on liver profile in regards to Covid patient remains on room air will avoid steroids in the setting of hyperg lycemia * CT chest negative for pulmonary embolism * Status is full code, discussed with patient in detail on 11/23/23
[2023-11-24] MEDS: CHOLESTYRAMINE (WITH SUGAR) 4 GM PACKET PO SCH ×2 (14:12→18:04)
--- NOTE | 2023-11-24 15:28 | P.PN ---
Subjective Progress Note Date: 11/24/23 Principal diagnosis: Reason for follow-up is COVID-19 and colitis Patient is a 53-year-old female with a past medical history difficult for diabetes mellitus hypertension hyperlipidemia reflux patient presenting to the hospital for evaluation of nausea vomiting and diarrhea, patient has been diagnosed with COVID also have evidence of colitis on the CT On today's evaluation that is 11/24/2023, the patient remains to be afebrile, the patient is breathing comfortably on room air, the patient denies any chest pain, the patient cough slightly decreased in intensity nausea has slowed down no further vomiting and the patient mention her diarrhea has slowed down as well no blood or mucus in the stool Patient white count is 8.9, creatinine 0.48, CT of the chest was negative for acute pulmonary process or PE Objective - Vital Signs Vital signs: Vital Signs Temp 97.8 F 11/24/23 02:00 Pulse 78 11/24/23 02:00 Resp 19 11/24/23 02:00 BP 156/87 11/24/23 02:00 Pulse Ox 99 11/24/23 02:00 FiO2 Intake & Output 11/23/23 11/24/23 11/24/23 18:59 06:59 18:59 Intake Total 1300 Output Total 50 Balance 1250 Intake: Intake, IV Titration 1300 Amount Sodium Chloride 0.9% 1, 1200 000 ml @ 100 mls/hr IV . Q10H [facility] Rx#:[id number] metroNIDAZOLE-NS PMX 500 100 mg In Saline 1 100ml.bag @ 100 mls/hr IVPB Q8HR [facility] Rx#:[id number] Output: Emesis 50 Other: Voiding Method Toilet # Voids 5 2 # Bowel Movements 2 - Exam GENERAL DESCRIPTION: Middle-aged female up in the bed in no distress RESPIRATORY SYSTEM: Unlabored breathing , coarse breath sounds bilaterally HEART: S1 S2 regular rate and rhythm , ABDOMEN: Soft , no tenderness EXTREMITIES: No edema feet - Labs CBC & Chem 7: 11/24/23 06:30 11/24/23 06:30 Labs: Abnormal Lab Results - Last 24 Hours (Table) 11/23/23 11/23/23 11/23/23 Range/Units 05:43 05:43 05:43 Plt Count 454 H (140-440) X 10*3/uL Immature Gran # 0.07 H (0.00-0.04) X 10*3/uL Sodium 130 L (135-145) mmol/L Carbon Dioxide 18.2 L (21.6-31.8) mmol/L Anion Gap 15.80 H (4.00-12.00) mmol/L BUN/Creatinine Ratio 33.86 H (12.00-20.00) Ratio Glucose 195 H (70-110) mg/dL POC Glucose (mg/dL) (70-110) mg/dL Hemoglobin A1c 8.4 H (<=6.0) % 11/23/23 11/23/23 11/24/23 Range/Units 11:36 17:01 06:57 Plt Count (140-440) X 10*3/uL Immature Gran # (0.00-0.04) X 10*3/uL Sodium (135-145) mmol/L Carbon Dioxide (21.6-31.8) mmol/L Anion Gap (4.00-12.00) mmol/L BUN/Creatinine Ratio (12.00-20.00) Ratio Glucose (70-110) mg/dL POC Glucose (mg/dL) 274 H 183 H 259 H (70-110) mg/dL Hemoglobin A1c (<=6.0) % Microbiology - Last 24 Hours (Table) 11/22/23 17:52 Blood Culture - Preliminary Blood Assessment and Plan (1) COVID-19 Current Visit: Yes Status: Acute Code(s): U07.1 - COVID-19 SNOMED Code(s): 700970192 (2) Colitis Current Visit: Yes Status: Acute Code(s): K52.9 - NONINFECTIVE GASTROENTERITIS AND COLITIS, UNSPECIFIED SNOMED Code(s): 27678974 Plan: 1patient presented to hospital with predominantly GI symptoms of nausea vomiting and diarrhea and this patient recently diagnosed with the COVID-19 and there was evidence of colitis involving the cecum and ascending colon possibly related to COVID-19 less likely related to bacterial pathogen in this patient with no fever or elevated white count however not entirely excluded 2-patient tested positive for COVID-19 however not hypoxic and chest x-ray has been negative treatment will be mostly supportive, CT angiogram of the chest was negative for PE or acute infiltrate 3- stool studies including stool culture and stool for C. difficile currently pending 4-patient did have some clinical improvement and will continue with empiric Rocephin and Flagyl add Questran for symptomatic relief of diarrhea Dictation was produced using [employer] dictation software. please excuse any grammatical, word or spelling errors. Time with Patient: Less than 30
[2023-11-24 17:08] LABS: Glucose,Whole Blood 139 mg/dL (70-110)
[2023-11-24 20:49] LABS: Glucose,Whole Blood 214 mg/dL (70-110)
[2023-11-24] MEDS: ATORVASTATIN 20 MG TAB PO SCH (22:07)
[2023-11-25] MEDS: HEPARIN SODIUM,PORCINE 5,000 UNIT/ML 1 ML VIAL SQ SCH ×3 (00:01→16:06)
[2023-11-25] MEDS: metroNIDAZOLE-NS PMX 500 MG in SALINE 1 100ML.BAG IVPB SCH ×3 (00:02→16:05)
[2023-11-25] MEDS: SODIUM CHLORIDE 0.9% 1,000 ML IV SCH ×3 (04:51→21:04)
[2023-11-25] MEDS: ONDANSETRON 4 MG/2 ML VIAL IVP PRN ×2 (05:09→12:57)
[2023-11-25 06:19] LABS: Glucose,Whole Blood 181 mg/dL (70-110)
[2023-11-25] MEDS: INSULIN DETEMIR (LEVEMIR) 100 UNIT/ML SYR SQ SCH (06:38)
[2023-11-25] MEDS: metFORMIN 500 MG TAB PO SCH ×2 (06:38→17:06)
[2023-11-25] MEDS: PANTOPRAZOLE 40 MG TABLET PO SCH (06:38)
[2023-11-25] MEDS: INSULIN ASPART (NovoLOG) 100 UNIT/ML VIAL SQ SCH ×6 (08:49→17:09)
[2023-11-25] MEDS: GABAPENTIN 300 MG CAP PO SCH ×3 (08:50→21:04)
[2023-11-25] MEDS: buPROPion XL 150 MG TAB.ER.24H PO SCH (08:50)
[2023-11-25] MEDS: METOPROLOL SUCCINATE (ER) 50 MG TAB.ER.24H PO SCH (08:50)
[2023-11-25] MEDS: guaiFENesin 600 MG TABLET.ER PO SCH ×2 (08:50→21:04)
[2023-11-25] MEDS: DILTIAZEM CD 120 MG CAP.ER.24H PO SCH (08:50)
[2023-11-25] MEDS: FENOFIBRATE 160 MG TAB PO SCH (08:50)
[2023-11-25] MEDS: SPIRONOLACTONE 25 MG TAB PO SCH (08:50)
[2023-11-25 11:26] LABS: Glucose,Whole Blood 206 mg/dL (70-110)
[2023-11-25] MEDS: CHOLESTYRAMINE (WITH SUGAR) 4 GM PACKET PO SCH ×2 (11:26→17:09)
[2023-11-25 12:52] LABS: Blood Urea Nitrogen 7.9 mg/dL (9.0-27.0); Carbon Dioxide 18.8 mmol/L (21.6-31.8); Chloride 96 mmol/L (96-109); Glucose 175 mg/dL (70-110); Potassium 3.4 mmol/L (3.5-5.5); Sodium 130 mmol/L (135-145)
[2023-11-25 12:54] LABS: HCT 35.9 % (37.2-46.3); HGB 12.8 g/dL (12.0-15.0); MCH 31.1 pg (27.0-32.0); MCHC 35.7 g/dL (32.0-37.0); MCV 87.3 FL (80.0-97.0); Mean Platelet Volume 10.2 FL (9.5-12.2); NRBC Per 100 WBC 0 X 10*3/uL (0.00-0.01); Platelet Count 413 X 10*3/uL (140-440); RBC 4.11 X 10*6/uL (4.10-5.20); WBC 8.04 X 10*3/uL (4.50-10.00)
[2023-11-25] MEDS ORDERED: POTASSIUM CHLORIDE ER 20 MEQ TAB.ER PO STA (13:12)
--- NOTE | 2023-11-25 13:13 | P.PN ---
Subjective Progress Note Date: 11/25/23 * 53-year-old patient with past medical history significant for diabetes mellitus, hypertension, hyperlipidemia, gastric physical reflux disease presents to the emergency department with complains of nausea, vomiting, fatigue. Patient states she was tested outpatient for Covid 19 last week. Since then patient states she has been nauseous and not able to keep anything down. Patient has been having nausea, vomiting, generalized abdominal pain for the last 48 hours. She has also complained of diarrhea. * Patient states she was placed on steroid outpatient and has been taking steroids for the last several days * Workup initiated in ER included basic metabolic panel which did show metabolic acidosis and hyperglycemia, acetones were negative. Patient was resuscitated with IV fluid, serum lactate obtained was 2.8, initial potassium was 5.3 follow-up 4.3. * CT abdomen and pelvis obtained in ED this suspicion for colitis, hepatic steatosis, renal abnormality suggesting MRI * Further workup in ER included urinalysis but did show significant ketones, proteinuria and glucosuria * Patient tested positive for Covid * Patient admitted to medical floor to be treated for colitis as well as Covid 19 as well as hyperglycemia with underlying diabetes * 11/23/2023: Patient seen and evaluated bedside, CODE STATUS discussed at this time patient will stay full code. Blood work reviewed CBC showed WBC 9.3 hemoglobin within normal limits serum chemistry shows sodium 1:30 B1 27 creatinine 0.7 glucose 195 HbA1c 8.4. * 11/24/2023: Patient seen and evaluated bedside, patient says appetite has improved abdominal discomfort still present, CBC showed normal WBC count normal hemoglobin, serum chemistry shows sodium of 1:30 creatinine within normal limits A1c 8.1 CRP within normal limits. CT chest negative for pul monary embolism continue current antibiotic with plan to discharge home within the next 24 hours. Continue on current insulin regimen patient started back on metformin * 11/25/2023: Patient seen and evaluated bedside, electrolyte panel reviewed, potassium replaced continue with current IV antibiotics diarrhea has improved as well potential discharge within the next 24 hours REVIEW OF SYSTEMS: CONSTITUTIONAL: No fever, no malaise, no fatigue. HEENT: No recent visual problems or hearing problems. Denied any sore throat. CARDIOVASCULAR: No chest pain, orthopnea, PND, no palpitations, no syncope. PULMONARY: Shortness of breath improved GASTROINTESTINAL: Nausea, vomiting RESOLVED , abdominal pain IMPROVED NEUROLOGICAL: No headaches, no weakness, no numbness. HEMATOLOGICAL: Denies any bleeding or petechiae. GENITOURINARY: Denies any burning micturition, frequency, or urgency. MUSCULOSKELETAL/RHEUMATOLOGICAL: Denies any joint pain, swelling, or any muscle pain. ENDOCRINE: Denies any polyuria or polydipsia. PHYSICAL EXAMINATION: GENERAL: The patient is alert and oriented x3, ill appearance HEENT: Pupils are round and equally reacting to light. EOMI Normocephalic, atraumatic. No pharyngeal erythema. No thyromegaly. CARDIOVASCULAR: S1 and S2 present. No murmurs, rubs, or gallops. PULMONARY: Chest is clear to auscultation, no wheezing or crackles. ABDOMEN: Soft, nontender, nondistended, normoactive bowel sounds. No palpable organomegaly. MUSCULOSKELETAL: No joint swelling or deformity. EXTREMITIES: No cyanosis, clubbing, or pedal edema. NEUROLOGICAL: Gross neurological examination did not reveal any focal deficits. SKIN: No rashes. Objective - Vital Signs Vital signs: Vital Signs Temp 98.0 F 11/25/23 08:00 Pulse 93 11/25/23 08:00 Resp 16 11/25/23 08:00 BP 177/99 11/25/23 08:00 Pulse Ox 97 11/25/23 08:00 FiO2 Intake & Output 11/24/23 11/25/23 11/25/23 18:59 06:59 18:59 Intake Total 1300 200 Output Total 0 Balance 1300 200 Intake: Intake, IV Titration 1300 Amount Sodium Chloride 0.9% 1, 1200 000 ml @ 100 mls/hr IV . Q10H [facility] Rx#:[id number] metroNIDAZOLE-NS PMX 500 100 mg In Saline 1 100ml.bag @ 100 mls/hr IVPB Q8HR [facility] Rx#:[id number] Oral 200 Output: Emesis 0 Other: # Voids 3 3 - Labs CBC & Chem 7: 11/25/23 06:27 11/25/23 06:27 Labs: Abnormal Lab Results - Last 24 Hours (Table) 11/24/23 11/24/23 11/25/23 Range/Units 17:04 20:47 06:17 Hct (37.2-46.3) % Sodium (135-145) mmol/L Potassium (3.5-5.5) mmol/L Carbon Dioxide (21.6-31.8) mmol/L Anion Gap (4.00-12.00) mmol/L BUN (9.0-27.0) mg/dL Creatinine (0.6-1.5) mg/dL Glucose (70-110) mg/dL POC Glucose (mg/dL) 139 H 214 H 181 H (70-110) mg/dL 11/25/23 11/25/23 11/25/23 Range/Units 06:27 06:27 11:25 Hct 35.9 L (37.2-46.3) % Sodium 130 L (135-145) mmol/L Potassium 3.4 L (3.5-5.5) mmol/L Carbon Dioxide 18.8 L (21.6-31.8) mmol/L Anion Gap 15.20 H (4.00-12.00) mmol/L BUN 7.9 L (9.0-27.0) mg/dL Creatinine 0.5 L (0.6-1.5) mg/dL Glucose 175 H (70-110) mg/dL POC Glucose (mg/dL) 206 H (70-110) mg/dL Microbiology - Last 24 Hours (Table) 11/22/23 17:52 Blood Culture - Preliminary Blood Assessment and Plan Assessment: Assessment and plan Acute gastroenteritis/colitis COVID-19 vital infection with gastroenteritis Diabetes mellitus type II with hyperglycemia Metabolic acidosis Lactic acidosis secondary to dehydration Acute hyponatremia Transaminitis secondary to Covid * In regards to gastroenteritis, CT abdomen pelvis reviewed, patient started on Rocephin and Flagyl day , continue patient on diabetic diet, stool cultures ordered, blood cultures no growth * In regards to hyperglycemia with diabetes continue patient on high-dose insulin, continue home regimen of Lantus follow-up electrolyte panel ordered * In regards to lactic acidosis patient given 2 L of normal saline bolus and additional fluid bolus ordered continue maintenance hydration, blood cultures no growth * In regards to hyponatremia follow-up on serum sodium levels, * In regards to transaminitis follow-up on liver profile in regards to Covid patient remains on room air will avoid steroids in the setting of hyperglycemia * CT chest negative for pulmonary embolism * Status is full code, discussed with patient in detail on 11/23/23
[2023-11-25] MEDS ORDERED: hydrALAZINE HCL 20 MG/ML 1 ML VIAL IVP PRN (14:42)
[2023-11-25 16:41] LABS: Glucose,Whole Blood 113 mg/dL (70-110)
[2023-11-25 19:54] LABS: Glucose,Whole Blood 164 mg/dL (70-110)
[2023-11-25] MEDS: ATORVASTATIN 20 MG TAB PO SCH (21:04)
[2023-11-26] MEDS: HEPARIN SODIUM,PORCINE 5,000 UNIT/ML 1 ML VIAL SQ SCH ×2 (00:10→08:33)
[2023-11-26] MEDS: metroNIDAZOLE-NS PMX 500 MG in SALINE 1 100ML.BAG IVPB SCH ×2 (00:10→07:33)
--- NOTE | 2023-11-26 03:27 | P.PN ---
Subjective Progress Note Date: 11/25/23 Principal diagnosis: Reason for follow-up is COVID-19 and colitis This is a telehealth visit Patient is a 53-year-old female with a past medical history difficult for diabetes mellitus hypertension hyperlipidemia reflux patient presenting to the hospital for evaluation of nausea vomiting and diarrhea, patient has been diagnosed with COVID also have evidence of colitis on the CT On today's evaluation that is 11/25/2023 the patient remains to be afebrile, the patient is breathing comfortably currently on room air, the patient denies having any chest pain shortness of breath, the patient cough has decreased in intensity patient denies any further nausea vomiting has been tolerating her diet no abdominal pain and diarrhea has resolved. Patient did have a white count of 8.04, creatinine 0.5 blood cultures so far negative Objective - Vital Signs Vital signs: Vital Signs Temp 97.6 F 11/25/23 14:00 Pulse 84 11/25/23 14:00 Resp 16 11/25/23 14:00 BP 178/109 11/25/23 14:00 Pulse Ox 99 11/25/23 14:00 FiO2 Intake & Output 11/24/23 11/25/23 11/25/23 18:59 06:59 18:59 Intake Total 1300 200 Output Total 0 Balance 1300 200 Intake: Intake, IV Titration 1300 Amount Sodium Chloride 0.9% 1, 1200 000 ml @ 100 mls/hr IV . Q10H [facility] Rx#:[id number] metroNIDAZOLE-NS PMX 500 100 mg In Saline 1 100ml.bag @ 100 mls/hr IVPB Q8HR [facility] Rx#:[id number] Oral 200 Output: Emesis 0 Other: # Voids 3 3 - Exam GENERAL DESCRIPTION: Middle-aged female up in the bed in no distress RESPIRATORY SYSTEM: Unlabored breathing , coarse breath sounds bilaterally HEART: S1 S2 regular rate and rhythm , ABDOMEN: Soft , no tenderness EXTREMITIES: No edema feet - Labs CBC & Chem 7: 11/25/23 06:27 11/25/23 06:27 Labs: Abnormal Lab Results - Last 24 Hours (Table) 11/24/23 11/25/23 11/25/23 Range/Units 20:47 06:17 06:27 Hct 35.9 L (37.2-46.3) % Sodium (135-145) mmol/L Potassium (3.5-5.5) mmol/L Carbon Dioxide (21.6-31.8) mmol/L Anion Gap (4.00-12.00) mmol/L BUN (9.0-27.0) mg/dL Creatinine (0.6-1.5) mg/dL Glucose (70-110) mg/dL POC Glucose (mg/dL) 214 H 181 H (70-110) mg/dL 11/25/23 11/25/23 11/25/23 Range/Units 06:27 11:25 16:33 Hct (37.2-46.3) % Sodium 130 L (135-145) mmol/L Potassium 3.4 L (3.5-5.5) mmol/L Carbon Dioxide 18.8 L (21.6-31.8) mmol/L Anion Gap 15.20 H (4.00-12.00) mmol/L BUN 7.9 L (9.0-27.0) mg/dL Creatinine 0.5 L (0.6-1.5) mg/dL Glucose 175 H (70-110) mg/dL POC Glucose (mg/dL) 206 H 113 H (70-110) mg/dL Microbiology - Last 24 Hours (Table) 11/22/23 17:52 Blood Culture - Preliminary Blood Assessment and Plan (1) COVID-19 Current Visit: Yes Status: Acute Code(s): U07.1 - COVID-19 SNOMED Code(s): 328653495 (2) Colitis Current Visit: Yes Status: Acute Code(s): K52.9 - NONINFECTIVE GASTROENTERITIS AND COLITIS, UNSPECIFIED SNOMED Code(s): 96104776 Plan: 1patient presented to hospital with predominantly GI symptoms of nausea vomiting and diarrhea and this patient recently diagnosed with the COVID-19 and there was evidence of colitis involving the cecum and ascending colon possibly related to COVID-19 less likely related to bacterial pathogen in this patient with no fever or elevated white count however not entirely excluded 2-patient tested positive for COVID-19 however not hypoxic and chest x-ray has been negative treatment will be mostly supportive, CT angiogram of the chest was negative for PE or acute infiltrate 3- stool for C. difficile negative, stool cultures are currently pending 4-patient did have clinical improvement and will continue with Rocephin and Flagyl along with Questran for symptomatic relief of diarrhea and hopefully short course of oral antibiotic on discharge Dictation was produced using [employer] dictation software. please excuse any grammatical, word or spelling errors. Time with Patient: Less than 30
[2023-11-26 03:36] VITALS: RESP 17
[2023-11-26 06:19] LABS: Glucose,Whole Blood 167 mg/dL (70-110)
[2023-11-26] MEDS: SODIUM CHLORIDE 0.9% 1,000 ML IV SCH (06:33)
[2023-11-26] MEDS: INSULIN DETEMIR (LEVEMIR) 100 UNIT/ML SYR SQ SCH (06:40)
[2023-11-26] MEDS: INSULIN ASPART (NovoLOG) 100 UNIT/ML VIAL SQ SCH ×4 (06:40→12:26)
[2023-11-26] MEDS: ONDANSETRON 4 MG/2 ML VIAL IVP PRN (06:40)
[2023-11-26] MEDS: metFORMIN 500 MG TAB PO SCH (06:40)
[2023-11-26] MEDS: PANTOPRAZOLE 40 MG TABLET PO SCH (06:40)
[2023-11-26] MEDS: buPROPion XL 150 MG TAB.ER.24H PO SCH (08:33)
[2023-11-26] MEDS: SPIRONOLACTONE 25 MG TAB PO SCH (08:33)
[2023-11-26] MEDS: DILTIAZEM CD 120 MG CAP.ER.24H PO SCH (08:33)
[2023-11-26] MEDS: METOPROLOL SUCCINATE (ER) 50 MG TAB.ER.24H PO SCH (08:33)
[2023-11-26] MEDS: guaiFENesin 600 MG TABLET.ER PO SCH (08:33)
[2023-11-26] MEDS: GABAPENTIN 300 MG CAP PO SCH (08:33)
[2023-11-26] MEDS: FENOFIBRATE 160 MG TAB PO SCH (08:33)
[2023-11-26] MEDS: CHOLESTYRAMINE (WITH SUGAR) 4 GM PACKET PO SCH (08:37)
[2023-11-26 09:24] LABS: Blood Urea Nitrogen 7.6 mg/dL (9.0-27.0); Calcium 8.8 mg/dL (8.7-10.3); Carbon Dioxide 20.7 mmol/L (21.6-31.8); Chloride 99 mmol/L (96-109); Glucose 146 mg/dL (70-110); Potassium 3.8 mmol/L (3.5-5.5); Sodium 132 mmol/L (135-145)
[2023-11-26 09:34] VITALS: BP 157/88; PULSE 83; TEMP 97.9
[2023-11-26 09:43] LABS: HCT 36.2 % (37.2-46.3); HGB 12.8 g/dL (12.0-15.0); MCH 30.3 pg (27.0-32.0); MCHC 35.4 g/dL (32.0-37.0); MCV 85.8 FL (80.0-97.0); Mean Platelet Volume 10.6 FL (9.5-12.2); NRBC Per 100 WBC 0 X 10*3/uL (0.00-0.01); Platelet Count 406 X 10*3/uL (140-440); RBC 4.22 X 10*6/uL (4.10-5.20); RDW 12.1 % (11.5-14.5); WBC 9.36 X 10*3/uL (4.50-10.00)
--- NOTE | 2023-11-26 11:27 | P.DS ---
Providers Date of admission: 11/22/23 12:08 Expected date of discharge: 11/26/23 Attending physician: Aide Dukes MD Consults: 11/22/23 14:05 Consult Physician Routine Consulting Provider: Anil Bowman Consult Reason/Comments: Covid, sepsis, colitis Do you want consulting provider notified?: Yes Primary care physician: Kayla [facility] Course: * 53-year-old patient with past medical history significant for diabetes mellitus, hypertension, hyperlipidemia, gastric physical reflux disease presents to the emergency department with complains of nausea, vomiting, fatigue. Patient states she was tested outpatient for Covid 19 last week. Since then patient states she has been nauseous and not able to keep anything down. Patient has been having nausea, vomiting, generalized abdominal pain for the last 48 hours. She has also complained of diarrhea. * Patient states she was placed on steroid outpatient and has been taking steroids for the last several days * Workup initiated in ER included basic metabolic panel which did show metabolic acidosis and hyperglycemia, acetones were negative. Patient was resuscitated with IV fluid, serum lactate obtained was 2.8, initial potassium was 5.3 follow-up 4.3. * CT abdomen and pelvis obtained in ED this suspicion for colitis, hepatic steatosis, renal abnormality suggesting MRI * Further workup in ER included urinalysis but did show significant ketones, proteinuria and glucosuria * Patient tested positive for Covid * Patient admitted to medical floor to be treated for colitis as well as Covid 19 as well as hyperglycemia with underlying diabetes * 11/23/2023: Patient seen and evaluated bedside, CODE STATUS discussed at this time patient will stay full code. Blood work reviewed CBC showed WBC 9.3 hemoglobin within normal limits serum chemistry shows sodium 1:30 B1 27 creatinine 0.7 glucose 195 HbA1c 8.4. * 11/24/2023: Patient seen and evaluated bedside, patient says appetite has improved abdominal discomfort still present, CBC showed normal WBC count normal hemoglobin, serum chemistry shows sodium of 1:30 creatinine within normal limits A1c 8.1 CRP within normal limits. CT chest negative for pulmonary embolism continue current antibiotic with plan to discharge home within the next 24 hours. Continue on current insulin regimen patient started back on metformin * 11/25/2023: Patient seen and evaluated bedside, electrolyte panel reviewed, potassium replaced continue with current IV antibiotics diarrhea has improved as well potential discharge within the next 24 hours * 11/26/2023: Patient seen and evaluated bedside, patient is awake and alert, patient's her diarrhea has resolved breathing is improved does have intermittent cough. Patient states she is ready for discharge electrolyte panel reviewed REVIEW OF SYSTEMS upon discharge: PULMONARY: Shortness of breath improved GASTROINTESTINAL: Nausea, vomiting RESOLVED , abdominal pain IMPROVED PHYSICAL EXAMINATION: GENERAL: The patient is alert and oriented x3, appearing well HEENT: Pupils are round and equally reacting to light. EOMI Normocephalic, atraumatic. No pharyngeal erythema. No thyromegaly. CARDIOVASCULAR: S1 and S2 present. No murmurs, rubs, or gallops. PULMONARY: Chest is clear to auscultation, no wheezing or crackles. ABDOMEN: Soft, nontender, nondistended, normoactive bowel sounds. No palpable organomegaly. MUSCULOSKELETAL: No joint swelling or deformity. EXTREMITIES: No cyanosis, clubbing, or pedal edema. NEUROLOGICAL: Gross neurological examination did not reveal any focal deficits. SKIN: No rashes. Assessment and plan Acute gastroenteritis/colitis COVID-19 vital infection with gastroenteritis Diabetes mellitus type II with hyperglycemia Metabolic acidosis Lactic acidosis secondary to dehydration Acute hyponatremia Transaminitis secondary to Covid * In regards to gastroenteritis, CT abdomen pelvis reviewed, patient was started on Rocephin and Flagyl , transition to oral antibiotic for additional 3 days , continue patient on diabetic diet, stool cultures not reported blood cultures no growth * In regards to hyperglycemia with diabetes , continue home regimen * In regards to lactic acidosis patient given 2 L of normal saline bolus and additional fluid bolus ordered continue maintenance hydration, blood cultures no growth RESOLVED * In regards to hyponatremia follow-up on serum sodium levels, * In regards to transaminitis follow-up on liver profile in regards to Covid patient remains on room air will avoid steroids in the setting of hyperglycemia * CT chest negative for pulmonary embolism * patient discharged home in stable condition Patient Condition at Discharge: Stable Plan - Discharge Summary Discharge Rx Participant: Yes New Discharge Prescriptions: New metroNIDAZOLE [Flagyl] 500 mg PO TID 3 Days #9 tab cefUROXime axetiL [Ceftin] 500 mg PO BID 3 Days #6 tab guaiFENesin [Mucinex] 600 mg PO Q12HR 5 Days #10 tab Continue gemfibroziL [Lopid] 600 mg PO QAM Albuterol Sulfate [Proventil Hfa] 1 - 2 puff INHALATION RT-Q6H PRN PRN Reason: Shortness Of Breath Pantoprazole Sodium [Protonix] 40 mg PO DAILY metFORMIN HCL [Glucophage] 500 mg PO BID Rosuvastatin [Crestor] 10 mg PO HS Metoprolol Succinate (ER) [Toprol XL] 50 mg PO DAILY Insulin Glargine/Lixisenatide [Soliqua 100 Unit-33 Mcg/ml Pen] 60 units SQ AC-BRKFST Spironolactone 25 mg PO DAILY Pantoprazole [Protonix] 40 mg PO DAILY dilTIAZem HCL [dilTIAZem HCL 24Hr ER (CD)] 120 mg PO DAILY Gabapentin [Neurontin] 300 mg PO TID buPROPion XL [Wellbutrin XL] 150 mg PO DAILY Discharge Medication List Albuterol Sulfate [Proventil Hfa] 1 - 2 puff INHALATION RT-Q6H PRN 07/19/17 [History] Pantoprazole Sodium [Protonix] 40 mg PO DAILY 07/19/17 [History] gemfibroziL [Lopid] 600 mg PO QAM 07/19/17 [History] Gabapentin [Neurontin] 300 mg PO TID 11/22/23 [History] Insulin Glargine/Lixisenatide [Soliqua 100 Unit-33 Mcg/ml Pen] 60 units SQ AC- BRKFST 11/22/23 [History] Metoprolol Succinate (ER) [Toprol XL] 50 mg PO DAILY 11/22/23 [History] Pantoprazole [Protonix] 40 mg PO DAILY 11/22/23 [History] Rosuvastatin [Crestor] 10 mg PO HS 11/22/23 [History] Spironolactone 25 mg PO DAILY 11/22/23 [History] buPROPion XL [Wellbutrin XL] 150 mg PO DAILY 11/22/23 [History] dilTIAZem HCL [dilTIAZem HCL 24Hr ER (CD)] 120 mg PO DAILY 11/22/23 [History] metFORMIN HCL [Glucophage] 500 mg PO BID 11/22/23 [History] cefUROXime axetiL [Ceftin] 500 mg PO BID 3 Days #6 tab 11/25/23 [Rx] guaiFENesin [Mucinex] 600 mg PO Q12HR 5 Days #10 tab 11/25/23 [Rx] metroNIDAZOLE [Flagyl] 500 mg PO TID 3 Days #9 tab 11/25/23 [Rx] Follow up Appointment(s)/Referral(s): Kayla Carter DO [Primary Care Provider] - 1-2 days Activity/Diet/Wound Care/Special Instructions: Continue on regular diet, complete course of antibiotic Discharge Disposition: HOME SELF-CARE
[2023-11-26 11:40] LABS: Glucose,Whole Blood 143 mg/dL (70-110)
--- NOTE | 2023-11-29 10:51 | CDI ---
Documentation Clarification Form Date: 11/29/2023 10:39:32 AM From: Cally Trinh Admit Date: 11/22/2023 12:08:00 PM Patient Name: Samina Acosta Visit Number: [id number] Discharge Date: 11/26/2023 12:52:00 PM ATTENTION: The Clinical Documentation Specialists (CDI) and [facility] Coding Staff appreciate your assistance in clarifying documentation. Please respond to the clarification below the line at the bottom and electronically sign. The CDI & [facility] Coding staff will review the response and follow-up if needed. Please note: Queries are made part of the Legal Health Record. If you have any questions, please contact the author of this message via ITS. Dr. Aide Dukes Per H and P Assessment and Plan sepsis is documented, but not carried through chart. Please clarify if patient had sepsis or was it ruled out. History/Risk Factors: Covid gastroenteritis, diabetes, acidosis, elevated HR Clinical Indicators: WBC 8.9 Lactic acid: 2.8 Blood cultures: No growth Vitals signs: 97.7 F, 118 bpm, 18, 173/93 95% RA Treatment: IV antibiotics ID Consult: Covid 19 evidence of colitis Antibiotics: Rocephin Flagyl Did patient have sepsis or was it ruled out: [ y ] Sepsis, present on admission [ ] Sepsis, developed during stay, not present on admission [ ] Sepsis ruled out [ ] Other, please specify [ ] Unable to determine SIRS Criteria: 2 or more of the following may indicate SIRS Temperature < 96.8F (36C) or > 101.0F (38.3C) Heart Rate > 90 bpm Respiratory Rate > 20 breaths/min or PaCO2 < 32 mmHg White Blood Cell Count > 12,000 or < 4,000 cells/mm3 or > 10% bands MTDD
--- NOTE | 2023-11-30 22:47 | P.PN ---
Subjective Progress Note Date: 11/26/23 Principal diagnosis: Reason for follow-up is COVID-19 and colitis This is a telehealth visit Patient is a 53-year-old female with a past medical history difficult for diabetes mellitus hypertension hyperlipidemia reflux patient presenting to the hospital for evaluation of nausea vomiting and diarrhea, patient has been diagnosed with COVID also have evidence of colitis on the CT On today's evaluation that is 11/26/2023 the patient denies any fever or any chills, the patient is breathing comfortably currently on room air, the patient denies having any chest pain shortness of breath, the patient cough has decreased in intensity and is mostly dry nature patient denies any further nausea vomiting has been tolerating her diet no abdominal pain and diarrhea has resolved. Feeling better wants to go home Patient did have a white count of 9.36, creatinine 0.5 blood cultures so far negative Objective - Vital Signs Vital signs: Vital Signs Temp 97.9 F 11/26/23 07:25 Pulse 83 11/26/23 07:25 Resp 17 11/26/23 07:25 BP 157/88 11/26/23 07:25 Pulse Ox 100 11/26/23 07:25 FiO2 Intake & Output 11/25/23 11/26/23 11/26/23 18:59 06:59 18:59 Intake Total 400 Balance 400 Intake: Oral 400 Other: # Voids 3 2 - Exam GENERAL DESCRIPTION: Middle-aged female up in the bed in no distress RESPIRATORY SYSTEM: Unlabored breathing , coarse breath sounds bilaterally HEART: S1 S2 regular rate and rhythm , ABDOMEN: Soft , no tenderness EXTREMITIES: No edema feet - Labs CBC & Chem 7: 11/26/23 06:30 11/26/23 06:30 Labs: Abnormal Lab Results - Last 24 Hours (Table) 11/25/23 11/25/23 11/25/23 Range/Units 06:27 06:27 11:25 Hct 35.9 L (37.2-46.3) % Sodium 130 L (135-145) mmol/L Potassium 3.4 L (3.5-5.5) mmol/L Carbon Dioxide 18.8 L (21.6-31.8) mmol/L Anion Gap 15.20 H (4.00-12.00) mmol/L BUN 7.9 L (9.0-27.0) mg/dL Creatinine 0.5 L (0.6-1.5) mg/dL Glucose 175 H (70-110) mg/dL POC Glucose (mg/dL) 206 H (70-110) mg/dL 11/25/23 11/25/23 11/26/23 Range/Units 16:33 19:53 06:17 Hct (37.2-46.3) % Sodium (135-145) mmol/L Potassium (3.5-5.5) mmol/L Carbon Dioxide (21.6-31.8) mmol/L Anion Gap (4.00-12.00) mmol/L BUN (9.0-27.0) mg/dL Creatinine (0.6-1.5) mg/dL Glucose (70-110) mg/dL POC Glucose (mg/dL) 113 H 164 H 167 H (70-110) mg/dL 11/26/23 11/26/23 Range/Units 06:30 06:30 Hct 36.2 L (37.2-46.3) % Sodium 132 L (135-145) mmol/L Potassium (3.5-5.5) mmol/L Carbon Dioxide 20.7 L (21.6-31.8) mmol/L Anion Gap 12.30 H (4.00-12.00) mmol/L BUN 7.6 L (9.0-27.0) mg/dL Creatinine 0.5 L (0.6-1.5) mg/dL Glucose 146 H (70-110) mg/dL POC Glucose (mg/dL) (70-110) mg/dL Microbiology - Last 24 Hours (Table) 11/22/23 17:52 Blood Culture - Preliminary Blood Assessment and Plan (1) COVID-19 Status: Acute Code(s): U07.1 - COVID-19 SNOMED Code(s): 669281323 (2) Colitis Status: Acute Code(s): K52.9 - NONINFECTIVE GASTROENTERITIS AND COLITIS, UNSPECIFIED SNOMED Code(s): 67515867 Plan: 1patient presented to hospital with predominantly GI symptoms of nausea vomiting and diarrhea and this patient recently diagnosed with the COVID-19 and there was evidence of colitis involving the cecum and ascending colon possibly related to COVID-19 less likely related to bacterial pathogen in this patient with no fever or elevated white count however not entirely excluded 2-patient tested positive for COVID-19 however not hypoxic and chest x-ray has been negative treatment will be mostly supportive, CT angiogram of the chest was negative for PE or acute infiltrate 3- stool for C. difficile negative, stool cultures are so far negative 4-patient did have clinical improvement and will finish therapy with oral Ceftin and Flagyl x 7 days and close outpatient follow-up Dictation was produced using [employer] dictation software. please excuse any grammatical, word or spelling errors. Time with Patient: Less than 30
== END 2023-11-26 12:52 | disposition home or self-care (01) | DRG 871 ==
LOC: EC 07:23 → 4SSUR 12:08
PROVIDERS: ADMIT Internal Medicine; ATTEND Internal Medicine
DX: A41.89 Other specified sepsis (principal); U07.1 COVID-19; A08.39 Other viral enteritis; E87.20 Acidosis, unspecified; E87.1 Hypo-osmolality and hyponatremia; E11.65 Type 2 diabetes mellitus with hyperglycemia; E78.5 Hyperlipidemia, unspecified; E86.0 Dehydration; E87.8 Other disorders of electrolyte and fluid balance, not elsewhere classified; F32.A Depression, unspecified; K21.9 Gastro-esophageal reflux disease without esophagitis; Z86.14 Personal history of Methicillin resistant Staphylococcus aureus infection; Z87.891 Personal history of nicotine dependence; Z79.01 Long term (current) use of anticoagulants; Z79.899 Other long term (current) drug therapy; Z79.84 Long term (current) use of oral hypoglycemic drugs; Z79.4 Long term (current) use of insulin; Z86.711 Personal history of pulmonary embolism; R74.01 Elevation of levels of liver transaminase levels
CPT/HCPCS: 36415; 71046; 71275; 74177; 80048; 80053; 81001; 82009; 82803; 83036; 83605; 83735; 84132; 85025; 85027; 86140; 87040; 87045; 87046; 87636; 93005; 94640; 96361; 96365; 96372; 96375; 99285

== ENCOUNTER → 2023-12-06 | Outpatient (CLI) | payer BC ==
--- NOTE | 2023-12-09 16:31 | MR ---
EXAMINATION TYPE: MR abdomen wo/w con DATE OF EXAM: 12/06/2023 8:16 PM CLINICAL INDICATION:Female, 53 years old with history of R93.422 ABNORMAL RADIOLOGIC FINDINGS ON DX I MAGING; PHH, Kidney lesion, Abnormal CT COMPARISON: CT scan abdomen from 11/22/2023, 08/21/2018. TECHNIQUE: Multiplanar multi-sequence imaging was performed without contrast. Post contrast imaging was performed. Post IV contrast subtraction images were also submitted for review. IV Contrast: 12.5 cc Gadavist FINDINGS: LOWER CHEST: No gross irregularity. ABDOMEN Liver: No evidence for hepatic steatosis or cirrhosis. Gallbladder and Bile ducts: No evidence for ductal dilation, or biliary stricture or evidence of chol edocholithiasis. The gallbladder is surgically absent. Pancreas: No ductal dilation. No evidence for solid mass. Spleen: Normal for size. Adrenal glands: Unremarkable. Kidneys: Left renal lesion with increased Hounsfield units on CT measures similarly at 24 mm and is i ntermediate high T2 signal. In intermediate to low T1 signal. There is no abnormal postcontrast enhan cement which is confirmed on subtraction imaging. No suspicious renal lesions bilaterally. No obstruc tive uropathy. Stomach and Bowel: No evidence for bowel wall thickening or evidence for obstruction.. Peritoneum: No evidence of pneumoperitoneum or free fluid. Vasculature: No aortic aneurysm. Musculoskeletal: The osseous structures appear intact. Lymph Nodes: No gross evidence for lymphadenopathy. Abdominal wall: Unremarkable. IMPRESSION: Finding on CT correlates with a slightly hemorrhagic/proteinaceous simple appearing cyst. No suspicio us enhancement. No suspicious renal lesions.
== END | disposition home or self-care (01) ==
LOC: RADMRIMAIN 18:51
PROVIDERS: ATTEND Family Medicine
DX: R93.422 Abnormal radiologic findings on diagnostic imaging of left kidney (principal)
CPT/HCPCS: 74183; A9585

== ENCOUNTER → 2024-09-02 | Outpatient (CLI) | payer BC ==
--- NOTE | 2024-09-02 17:58 | US ---
EXAMINATION TYPE: US transvaginal DATE OF EXAM: 09/02/2024 COMPARISON: NONE CLINICAL INDICATION: Female, 54 years old with history of N93.9 ABNORMAL UTERINE AND VAGINAL BLEEDING ; cycles stopped at age 36, started again at age 46, stopped and now has been bleeding for 1 month, G 0, large habitus TECHNIQUE: TV. Transvaginal sonographic images FINDINGS: Date of LMP: 7 years ago EXAM MEASUREMENTS: Uterus: 6.1 x 2.6 x 2.9 cm Endometrial Stripe: 0.5 cm Right Ovary: not seen Left Ovary: not seen 1. Uterus: Retroverted wnl 2. Endometrium: slightly thickened 3. Right Ovary: not seen due to atrophy and bowel gas 4. Left Ovary: not seen due to atrophy and bowel gas 5. Bilateral Adnexa: wnl 6. Posterior cul-de-sac: wnl IMPRESSION: Endometrium at the upper limits of normal for thickness. Consider direct visualization. [facility], , 09/02/2024 5:56 PM
== END | disposition home or self-care (01) ==
LOC: RADUSWWP 16:36
PROVIDERS: ATTEND Family Medicine
DX: N93.9 Abnormal uterine and vaginal bleeding, unspecified (principal)
CPT/HCPCS: 76830

== ENCOUNTER 2024-12-02 16:24 | Inpatient (IN) | payer BC ==
[2024-12-02 17:34] LABS: Basophils % (A) 0 %; Eosinophils # (A) 0.3 k/uL (0-0.7); Eosinophils % (A) 3 %; HCT 36.6 % (34.0-46.0); HGB 12.1 gm/dL (11.4-16.0); Lymphocytes # (A) 2.1 k/uL (1.0-4.8); Lymphocytes % (A) 16 %; MCH 28.9 pg (25.0-35.0); MCHC 32.9 g/dL (31.0-37.0); MCV 87.7 fL (80.0-100.0); Mean Platelet Volume 6.7; Monocytes # (A) 0.5 k/uL (0-1.0); Monocytes % (A) 4 %; Neutrophils # (A) 9.7 k/uL (1.3-7.7); Neutrophils % (A) 76 %; Platelet Count 559 k/uL (150-450); RBC 4.18 m/uL (3.80-5.40); RDW 12.8 % (11.5-15.5); WBC 12.9 k/uL (3.8-10.6)
--- NOTE | 2024-12-02 17:44 | ED ---
General Adult HPI - General Chief complaint: Wound/Laceration Stated complaint: right ankle infection Time Seen by Provider: 12/02/24 16:32 Source: patient, RN/MD, RN notes reviewed, old records reviewed Mode of arrival: wheelchair Limitations: no limitations - History of Present Illness Initial comments: Patient is a 54-year-old female present to the emergency department with right ankle pain. Patient did have a fall and fracture a couple weeks ago with this and was placed in a boot. At follow-up today x-rays were concerning for displacement of her fracture as well as wound with concern for infection. I did speak with Dr. Zay Mike who recommends patient be admitted and he will consult for surgical repair. He also request antibiotics and infectious disease. Patient also has metastatic malignant melanoma and is still waiting for treatment. - Related Data Home Medications Medication Instructions Recorded Confirmed Albuterol Sulfate [Proventil Hfa] 1 - 2 puff INHALATION RT-Q6H PRN 07/19/17 11/22/23 Pantoprazole Sodium [Protonix] 40 mg PO DAILY 07/19/17 11/22/23 gemfibroziL [Lopid] 600 mg PO QAM 07/19/17 11/22/23 Gabapentin [Neurontin] 300 mg PO TID 11/22/23 11/22/23 Insulin Glargine/Lixisenatide 60 units SQ AC-BRKFST 11/22/23 11/22/23 [Soliqua 100 Unit-33 Mcg/ml Pen] Metoprolol Succinate (ER) [Toprol 50 mg PO DAILY 11/22/23 11/22/23 XL] Pantoprazole [Protonix] 40 mg PO DAILY 11/22/23 11/22/23 Rosuvastatin [Crestor] 10 mg PO HS 11/22/23 11/22/23 Spironolactone 25 mg PO DAILY 11/22/23 11/22/23 buPROPion XL [Wellbutrin XL] 150 mg PO DAILY 11/22/23 11/22/23 dilTIAZem HCL [dilTIAZem HCL 24Hr 120 mg PO DAILY 11/22/23 11/22/23 ER (CD)] metFORMIN HCL [Glucophage] 500 mg PO BID 11/22/23 11/22/23 Previous Rx's Medication Instructions Recorded cefuroxime axetiL [Ceftin] 500 mg PO BID 3 Days #6 tab 11/25/23 guaiFENesin [Mucinex] 600 mg PO Q12HR 5 Days #10 tab 11/25/23 metroNIDAZOLE [Flagyl] 500 mg PO TID 3 Days #9 tab 11/25/23 Allergies Allergy/AdvReac Type Severity Reaction Status Date / Time benazepril Allergy "throat Verified 12/02/24 16:44 closing" hydrocodone [From Vicodin] AdvReac Nausea & Verified 12/02/24 16:44 Vomiting Review of Systems ROS Statement: Those systems with pertinent positive or pertinent negative responses have been documented in the HPI. ROS Other: All systems not noted in ROS Statement are negative. Constitutional: Denies: fever Eyes: Denies: eye pain ENT: Denies: ear pain Respiratory: Denies: cough Endocrine: Reports: fatigue Gastrointestinal: Denies: abdominal pain Musculoskeletal: Reports: as per HPI. Denies: back pain Skin: Reports: as per HPI, rash Past Medical History Past Medical History: Diabetes Mellitus, GERD/Reflux, Hyperlipidemia, Hypertension, Osteoarthritis (OA) Additional Past Medical History / Comment(s): SVT. ALLERGIES. NEUROPATHY IN FEET. 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 Date of last positivie culture/infection: 06/27/17 MDRO Source:: LEFT GROIN Additional Past Surgical History / Comment(s): D & C Past Anesthesia/Blood Transfusion Reactions: No Reported Reaction, Motion Sickness Past Psychological History: Depression Smoking Status: Former smoker Past Alcohol Use History: Occasional Past Drug Use History: None Reported - Past Family History Mother Family Medical History: Cancer, Deep Vein Thrombosis (DVT) Additional Family Medical History / Comment(s): RENAL CA Brother(s) Family Medical History: Deep Vein Thrombosis (DVT) General Exam Limitations: no limitations General appearance: alert, in no apparent distress Head exam: Present: normocephalic Eye exam: Present: normal appearance Neck exam: Present: normal inspection Respiratory exam: Present: normal lung sounds bilaterally Cardiovascular Exam: Present: regular rate, normal rhythm GI/Abdominal exam: Present: soft. Absent: tenderness Extremities exam: Present: other (Right ankle with tenderness and swelling. Medial malleolus with small ulcer with minimal purulent drainage and there is surrounding erythema up to the lower leg.) Neurological exam: Present: alert Psychiatric exam: Present: normal affect, normal mood Skin exam: Present: erythema Course Vital Signs 12/02/24 16:40 Temperature 98.4 F Pulse Rate 86 Respiratory 18 Rate Blood Pressure 148/72 O2 Sat by Pulse 96 Oximetry EKG Findings - EKG Results: EKG: interpreted by LANDOND, sinus rhythm, normal axis, normal QRS, normal ST/T Medical Decision Making - Medical Decision Making Was pt. sent in by a medical professional or institution (, PA, INTERNET SALES DIRECTOR, urgent care, hospital, or group home...) When possible be specific @ -Patient was sent in by orthopedic office Did you speak to anyone other than the patient for history (EMS, parent, family, police, friend...)? What history was obtained from this source @ -I did speak with Dr. Henriquez prior to patient arrival Did you review nursing and triage notes (agree or disagree)? Why? @ -I reviewed and agree with nursing and triage notes Were old charts reviewed (outside hosp., previous admission, EMS record, old EKG, old radiological studies, urgent care reports/EKG's, group home records)? Report findings @ -No old charts were reviewed Differential Diagnosis (chest pain, altered mental status, abdominal pain women, abdominal pain men, vaginal bleeding, weakness, fever, dyspnea, syncope, headach e, dizziness, GI bleed, back pain, seizure, CVA, palpatations, mental health, musculoskeletal)? @ -Differential Musculoskeletal Muscular strain, contusion, ligament sprain, fracture, arthritis, septic arthritis, bursitis, cellulitis, muscle spasm, nerve compression, DVT, arterial occlusion, herpes zoster, electrolyte abnormality, tumor.... This is not meant to be in all inclusive list differential Fever: Pneumonia, viral URI, endocarditis, myocarditis, pericarditis, otitis, sinusitis, peritonsillar Abscess, retropharyngeal Abscess, epiglottitis, peritonitis, appendicitis, Noreen cystitis, diverticulitis, hepatitis, colitis, UTI, PID, TOA, pyelonephritis, prostatitis, epididymitis, meningitis, encephalitis, pulmonary embolism, CVA, thyroid storm, pancreatitis, adrenal crisis, cavernous sinus thrombosis, this is not meant to be an all-inclusive list. EKG interpreted by me (3pts min.). @ -As above X-rays interpreted by me (1pt min.). @ -None done CT interpreted by me (1pt min.). @ -CT scan shows posterior foot displacement and ankle fracture U/S interpreted by me (1pt. min.). @ -None done What testing was considered but not performed or refused? (CT, X-rays, U/S, labs)? Why? @ -None What meds were considered but not given or refused? Why? @ -None Did you discuss the management of the patient with other professionals (professionals i.e. , PA, INTERNET SALES DIRECTOR, lab, RT, psych nurse, social media strategist, burglar alarm superintendent, teacher, senior escrow officer, outpatient case manager)? Give summary @ -Case also discussed with practitioner Bibi who will admit covering vandana Was smoking cessation discussed for >3mins.? @ -No Was critical care preformed (if so, how long)? @ -No Were there social determinants of health that impacted care today? How? (Homelessness, low income, unemployed, alcoholism, drug addiction, transportation, low edu. Level, literacy, decrease access to med. care, half-way, rehab)? @ -No Was there de-escalation of care discussed even if they declined (Discuss DNR or withdrawal of care, Hospice)? DNR status @ -No What co-morbidities impacted this encounter? (DM, HTN, Smoking, COPD, CAD, Can cer, CVA, ARF, Chemo, Hep., AIDS, mental health diagnosis, sleep apnea, morbid obesity)? @ -History of diabetes. History of malignant melanoma. History of recent ankle for Was patient admitted / discharged? Hospital course, mention meds given and route, prescriptions, significant lab abnormalities, going to OR and other pertinent info. @ -Patient presents with recent ankle fracture with new displacement and concern for infection. Patient is updated on results and plan. Patient will be admitted with orthopedic, oncology, and infectious disease consults. Admission orders written. Undiagnosed new problem with uncertain prognosis? @ -No Drug Therapy requiring intensive monitoring for toxicity (Heparin, Nitro, Insulin, Cardizem)? @ -No Were any procedures done? @ -No Diagnosis/symptom? @ -Displaced ankle fracture with cellulitis and ulcer Acute, or Chronic, or Acute on Chronic? @ -Acute Uncomplicated (without systemic symptoms) or Complicated (systemic symptoms)? @ -Default Side effects of treatment? @ -No Exacerbation, Progression, or Severe Exacerbation? @ -No Poses a threat to life or bodily function? How? (Chest pain, USA, OR, pneumonia, PE, COPD, DKA, ARF, appy, cholecystitis, CVA, Diverticulitis, Homicidal, Suicidal, threat to staff... and all critical care pts) @ -Threat for loss of limb - Lab Data Result diagrams: 12/02/24 17:24 12/02/24 17:24 Lab Results 12/02/24 12/02/24 12/02/24 Range/Units 17:24 17:24 17:24 WBC 12.9 H (3.8-10.6) k/uL RBC 4.18 (3.80-5.40) m/uL Hgb 12.1 (11.4-16.0) gm/dL Hct 36.6 (34.0-46.0) % MCV 87.7 (80.0-100.0) fL MCH 28.9 (25.0-35.0) pg MCHC 32.9 (31.0-37.0) g/dL RDW 12.8 (11.5-15.5) % Plt Count 559 H (150-450) k/uL MPV 6.7 Neutrophils % 76 % Lymphocytes % 16 % Monocytes % 4 % Eosinophils % 3 % Basophils % 0 % Neutrophils # 9.7 H (1.3-7.7) k/uL Lymphocytes # 2.1 (1.0-4.8) k/uL Monocytes # 0.5 (0-1.0) k/uL Eosinophils # 0.3 (0-0.7) k/uL Basophils # 0.0 (0-0.2) k/uL PT (10.0-12.5) sec INR (<1.2) APTT (22.0-30.0) sec Sodium 131 L (137-145) mmol/L Potassium 4.7 (3.5-5.1) mmol/L Chloride 92 L (98-107) mmol/L Carbon Dioxide 29 (22-30) mmol/L Anion Gap 10 mmol/L BUN 21 H (7-17) mg/dL Creatinine 0.71 (0.52-1.04) mg/dL Est GFR (CKD-EPI)AfAm >90 (>60 ml/min/1.73 sqM) Est GFR (CKD-EPI)NonAf >90 (>60 ml/min/1.73 sqM) Glucose 108 H (74-99) mg/dL Plasma Lactic Acid Rex 0.8 (0.7-2.0) mmol/L Calcium 9.8 (8.4-10.2) mg/dL Total Bilirubin 0.3 (0.2-1.3) mg/dL AST 24 (14-36) U/L ALT 27 (4-34) U/L Alkaline Phosphatase 124 (38-126) U/L Total Protein 7.5 (6.3-8.2) g/dL Albumin 4.3 (3.5-5.0) g/dL 12/02/24 Range/Units 19:27 WBC (3.8-10.6) k/uL RBC (3.80-5.40) m/uL Hgb (11.4-16.0) gm/dL Hct (34.0-46.0) % MCV (80.0-100.0) fL MCH (25.0-35.0) pg MCHC (31.0-37.0) g/dL RDW (11.5-15.5) % Plt Count (150-450) k/uL MPV Neutrophils % % Lymphocytes % % Monocytes % % Eosinophils % % Basophils % % Neutrophils # (1.3-7.7) k/uL Lymphocytes # (1.0-4.8) k/uL Monocytes # (0-1.0) k/uL Eosinophils # (0-0.7) k/uL Basophils # (0-0.2) k/uL PT 10.4 (10.0-12.5) sec INR 0.9 (<1.2) APTT 23.9 (22.0-30.0) sec Sodium (137-145) mmol/L Potassium (3.5-5.1) mmol/L Chloride (98-107) mmol/L Carbon Dioxide (22-30) mmol/L Anion Gap mmol/L BUN (7-17) mg/dL Creatinine (0.52-1.04) mg/dL Est GFR (CKD-EPI)AfAm (>60 ml/min/1.73 sqM) Est GFR (CKD-EPI)NonAf (>60 ml/min/1.73 sqM) Glucose (74-99) mg/dL Plasma Lactic Acid Rex (0.7-2.0) mmol/L Calcium (8.4-10.2) mg/dL Total Bilirubin (0.2-1.3) mg/dL AST (14-36) U/L ALT (4-34) U/L Alkaline Phosphatase (38-126) U/L Total Protein (6.3-8.2) g/dL Albumin (3.5-5.0) g/dL Disposition Clinical Impression: Ankle fracture, right, Ankle ulcer, Cellulitis Disposition: ADMITTED IP TO THIS HOSP Condition: Serious Is patient prescribed a controlled substance at d/c from ED?: No Referrals: Kayla Carter DO [Primary Care Provider] - 1-2 days Time of Disposition: 19:49
[2024-12-02 17:48] LABS: ALT 27 U/L (4-34); AST 24 U/L (14-36); African American GFR (CKD) >90 (>60 ml/min/1.73 sqM); Albumin 4.3 g/dL (3.5-5.0); Alkaline Phosphatase 124 U/L (38-126); Anion Gap 10 mmol/L; Blood Urea Nitrogen 21 mg/dL (7-17); Calcium 9.8 mg/dL (8.4-10.2); Carbon Dioxide 29 mmol/L (22-30); Chloride 92 mmol/L (98-107); Glucose 108 mg/dL (74-99); Non-African American GFR(CKD) >90 (>60 ml/min/1.73 sqM); Potassium 4.7 mmol/L (3.5-5.1); Sodium 131 mmol/L (137-145); Total Bilirubin 0.3 mg/dL (0.2-1.3); Total Protein 7.5 g/dL (6.3-8.2)
--- NOTE | 2024-12-02 19:31 | CT ---
EXAMINATION TYPE: CT ankle RT w con DATE OF EXAM: 12/02/2024 6:34 PM COMPARISON: None CLINICAL INDICATION: Female, 54 years old with history of injury, infection; PHH, RT ankle fx possibl e infection. Pain TECHNIQUE: Axial images were obtained of the CT ankle RT w con, Additional coronal and sagittal refor matted images and soft tissue and bone window were obtained for review. 3-D reconstruction was create d on a separate workstation. Contrast used:100 ml mL of Isovue 300 with IV Contrast, (None if empty) Oral contrast used: (None if empty) CT DLP: 418.8 mGycm, Automated exposure control for dose reduction was used. FINDINGS: Diffuse anasarca throughout the lower extremity soft tissues. There is posterior lateral di slocation of the talus with respect to the tibia. There are intra-articular comminuted fractures of t he tibia and distal fibula. There is displacement of the tibial plateau up to 3.2 cm. Multiple osseou s fragments present some of which may be intra-articular.. No definitive organizing fluid collection or osseous erosion at this time there is however a joint effusion noted most pronounced medially seri es 201 image 83. Calcaneal plantar spurring is also noted with multifocal degeneration changes throughout the visualiz ed joints of the foot. IMPRESSION: 1. Posterior lateral dislocation of the foot with comminuted intra-articular fractures of the tibia and fibula. 2. No organizing fluid collection or osseous erosion definitively visualized at this time. There is diffuse anasarca of the soft tissues and a joint effusion present. [facility], , 12/02/2024 7:29 PM
[2024-12-02 19:41] LABS: INR 0.9 (<1.2); Partial Thromboplastin Time 23.9 sec (22.0-30.0); Prothrombin Time 10.4 sec (10.0-12.5)
[2024-12-02] MEDS ORDERED: VANCOMYCIN IV PER PHARMACY 1 EACH MISC MISCELLANE PRN (19:43)
[2024-12-02] MEDS ORDERED: NALOXONE 0.4 MG/ML 1 ML VIAL IV PRN (19:49)
[2024-12-02] MEDS ORDERED: traMADol 50 MG TAB PO PRN (19:49)
[2024-12-02] MEDS ORDERED: ACETAMINOPHEN TAB 325 MG TAB PO PRN (19:49)
[2024-12-02] MEDS: AMPICILLIN-SULBACTAM 1.5 GM in SODIUM CHLORIDE 0.9% 50 ML IVPB ONE (20:20)
[2024-12-02] MEDS: SODIUM CHLORIDE 0.9% 1,000 ML IV SCH (20:20)
[2024-12-02] MEDS: FAMOTIDINE 20 MG TAB PO SCH (20:22)
[2024-12-02] MEDS: VANCOMYCIN 2,250 MG in SODIUM CHLORIDE 0.9% 500 ML 500 ML IVPB ONE (21:22)
[2024-12-03] MEDS: HYDROmorphone 0.5 MG/0.5 ML SYRINGE IVP PRN (00:37)
[2024-12-03] MEDS: AMPICILLIN-SULBACTAM 1.5 GM in SODIUM CHLORIDE 0.9% 50 ML IVPB SCH ×2 (04:29→12:05)
[2024-12-03 08:50] LABS: Basophils # (A) 0 X 10*3/uL (0.00-0.10); Basophils % (A) 0 %; Eosinophils # (A) 0.31 X 10*3/uL (0.04-0.35); Eosinophils % (A) 3.5 %; HGB 11.4 g/dL (12.0-15.0); Lymphocytes # (A) 2.06 X 10*3/uL (0.90-5.00); Lymphocytes % (A) 23.1 %; MCH 28.4 pg (27.0-32.0); MCHC 31.7 g/dL (32.0-37.0); MCV 89.6 FL (80.0-97.0); Mean Platelet Volume 9.7 FL (9.5-12.2); Monocytes # (A) 0.54 X 10*3/uL (0.20-1.00); Monocytes % (A) 6.1 %; NRBC Per 100 WBC 0 X 10*3/uL (0.00-0.01); Neutrophils # (A) 5.95 X 10*3/uL (1.80-7.70); Neutrophils % (A) 66.7 %; Platelet Count 552 X 10*3/uL (140-440); RBC 4.02 X 10*6/uL (4.10-5.20); RDW 12.8 % (11.5-14.5); WBC 8.91 X 10*3/uL (4.50-10.00)
[2024-12-03] MEDS: VANCOMYCIN 2,250 MG in SODIUM CHLORIDE 0.9% 500 ML 500 ML IVPB SCH (08:57)
[2024-12-03] MEDS: HYDROmorphone 1 MG/ML 1 ML SYRINGE IVP PRN (10:17)
[2024-12-03 10:21] LABS: BUN/Creat Ratio 21.86 Ratio (12.00-20.00); Blood Urea Nitrogen 15.3 mg/dL (9.0-27.0); Chloride 97 mmol/L (96-109); Glucose 85 mg/dL (70-110); Sodium 135 mmol/L (135-145)
[2024-12-03 10:22] LABS: ALT 22 U/L (8-44); AST 21 U/L (13-35); Albumin 3.9 g/dL (3.8-4.9); Albumin/Globulin Ratio 1.34 Ratio (1.60-3.17); Alkaline Phosphatase 123 U/L (41-126); Calcium 9.8 mg/dL (8.7-10.3); Carbon Dioxide 26.8 mmol/L (21.6-31.8); Globulin 2.9 g/dL (1.6-3.3); Total Bilirubin 0.3 mg/dL (0.3-1.2); Total Protein 6.8 g/dL (6.2-8.2)
[2024-12-03] MEDS: ONDANSETRON 4 MG/2 ML VIAL IVP PRN (11:38)
--- NOTE | 2024-12-03 14:19 | P.HPIM ---
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 Presents because of her left ankle fracture. Patient had fracture about 2 weeks ago when she fell. She has a hard cast. Recently was noticed that becoming more red and more painful for her therefore she decided to come to emergency room Patient pain was controlled currently She denies chest pain or dyspnea. No specific GI symptoms like no abdominal pain vomiting or diarrhea. Patient complaining from some dysuria No headache dizziness weakness or numbness. She denies smoking alcohol or illicit drugs. On admission patient was afebrile and hemodynamically stable She had mild leukocytosis of 12.9 and sodium 131. Rest of labs including CBC, BMP and LFT and INR were unremarkable CT of the ankle showing posterior lateral dislocation of the foot with comminuted intra-articular fracture of the tibia and fibula. No fluid collection Review of Systems Review of systems CONSTITUTIONAL: No fever, no malaise, no fatigue. HEENT: No recent visual problems or hearing problems. Denied any sore throat. CARDIOVASCULAR: No orthopnea, PND, no palpitations, no syncope. PULMONARY: No shortness of breath, no cough, no hemoptysis. GASTROINTESTINAL: No diarrhea, no nausea, no vomiting, no abdominal pain. Normoactive bowel sounds. NEUROLOGICAL: No headaches, no weakness, no numbness. HEMATOLOGICAL: Denies any bleeding or petechiae. GENITOURINARY: Denies any burning micturition, frequency, or urgency. MUSCULOSKELETAL/RHEUMATOLOGICAL: Denies any joint pain, swelling, or any muscle pain. ENDOCRINE: Denies any polyuria or polydipsia. Past Medical History Past Medical History: Cancer, Diabetes Mellitus, GERD/Reflux, Hyperlipidemia, Hypertension, Osteoarthritis (OA) Additional Past Medical History / Comment(s): SVT. ALLERGIES. NEUROPATHY IN FEET. LEFT OPTIC NERVE DEFECT. St 4 melanoma external vaginal [ no tx at this time] awaiting insurance approval History of Any Multi-Drug Resistant Organisms: MRSA Date of last positivie culture/infection: 06/27/17 MDRO Source:: LEFT GROIN Past Surgical History: Cholecystectomy Additional Past Surgical History / Comment(s): D & C Past Anesthesia/Blood Transfusion Reactions: No Reported Reaction, Motion Sickness Past Psychological History: Depression Smoking Status: Former smoker Past Alcohol Use History: Occasional Additional Past Alcohol Use History / Comment(s): QUIT@ AGE 27, 1PPD Past Drug Use History: None Reported - Past Family History Mother Family Medical History: Cancer, Deep Vein Thrombosis (DVT) Additional Family Medical History / Comment(s): RENAL CA Brother(s) Family Medical History: Deep Vein Thrombosis (DVT) Medications and Allergies Home Medications Medication Instructions Recorded Confirmed Type Albuterol Sulfate [Proventil Hfa] 2 puff INHALATION RT-Q6H PRN 07/19/17 12/02/24 History Pantoprazole Sodium [Protonix] 40 mg PO DAILY 07/19/17 12/02/24 History gemfibroziL [Lopid] 600 mg PO DAILY 07/19/17 12/02/24 History Insulin Glargine/Lixisenatide 60 units SQ AC-BRKFST 11/22/23 12/02/24 History [Soliqua 100 Unit-33 Mcg/ml Pen] Metoprolol Succinate (ER) [Toprol 50 mg PO DAILY 11/22/23 12/02/24 History XL] Rosuvastatin [Crestor] 10 mg PO HS 11/22/23 12/02/24 History Spironolactone 25 mg PO DAILY 11/22/23 12/02/24 History buPROPion XL [Wellbutrin XL] 150 mg PO DAILY 11/22/23 12/02/24 History dilTIAZem HCL [dilTIAZem HCL 24Hr 120 mg PO DAILY 11/22/23 12/02/24 History ER (CD)] Gabapentin 1,200 mg PO BID 12/02/24 12/02/24 History Losartan [Cozaar] 50 mg PO DAILY 12/02/24 12/02/24 History Allergies Allergy/AdvReac Type Severity Reaction Status Date / Time benazepril Allergy "throat Verified 12/02/24 20:46 closing" hydrocodone [From Vicodin] AdvReac Nausea & Verified 12/02/24 20:46 Vomiting Physical Exam Vitals: Vital Signs Temp Pulse Pulse Resp BP BP Pulse Ox 12/03/24 13:13 97.8 F 101 H 19 164/77 98 12/03/24 08:15 97.8 F 83 18 125/77 99 12/03/24 07:04 97.8 F 76 18 136/82 98 12/03/24 05:00 71 18 134/70 95 01/27/25 20:37 72 18 117/77 97 12/02/24 16:40 98.4 F 86 18 148/72 96 Intake and Output 12/02/24 12/03/24 12/03/24 22:59 06:59 14:59 Other: Weight 158.757 kg 158.757 kg GENERAL: The patient is alert and oriented x3, not in any acute distress. Well developed, well nourished. HEENT: Pupils are round and equally reacting to light. EOMI. No scleral icterus. No conjunctival pallor. Normocephalic, atraumatic. No pharyngeal erythema. No thyromegaly. CARDIOVASCULAR: S1 and S2 present. No murmurs, rubs, or gallops. PULMONARY: Chest is clear to auscultation, no wheezing , no crackles. ABDOMEN: Soft, nontender, nondistended, normoactive bowel sounds. No palpable organomegaly. MUSCULOSKELETAL: No joint swelling or deformity. -EXTREMITIES: No cyanosis, clubbing, or pedal edema. Left ankle fracture on hard cast in place, rest of exam is deferred to surgery team NEUROLOGICAL: Gross neurological examination did not reveal any focal deficits. SKIN: No rashes. no petechiae. Results CBC & Chem 7: 12/03/24 05:55 12/03/24 05:55 Labs: Abnormal Lab Results - Last 24 Hours (Table) 12/02/24 12/02/24 12/03/24 Range/Units 17:24 17:24 05:55 WBC 12.9 H (3.8-10.6) k/uL RBC 4.02 L (4.10-5.20) X 10*6/uL Hgb 11.4 L (12.0-15.0) g/dL Hct 36.0 L (37.2-46.3) % MCHC 31.7 L (32.0-37.0) g/dL Plt Count 559 H 552 H (150-450) k/uL Immature Gran # 0.05 H (0.00-0.04) X 10*3/uL Neutrophils # 9.7 H (1.3-7.7) k/uL Sodium 131 L (137-145) mmol/L Chloride 92 L (98-107) mmol/L BUN 21 H (7-17) mg/dL BUN/Creatinine Ratio (12.00-20.00) Ratio Glucose 108 H (74-99) mg/dL Albumin/Globulin Ratio (1.60-3.17) Ratio 12/03/24 Range/Units 05:55 WBC (3.8-10.6) k/uL RBC (4.10-5.20) X 10*6/uL Hgb (12.0-15.0) g/dL Hct (37.2-46.3) % MCHC (32.0-37.0) g/dL Plt Count (150-450) k/uL Immature Gran # (0.00-0.04) X 10*3/uL Neutrophils # (1.3-7.7) k/uL Sodium (137-145) mmol/L Chloride (98-107) mmol/L BUN (7-17) mg/dL BUN/Creatinine Ratio 21.86 H (12.00-20.00) Ratio Glucose (74-99) mg/dL Albumin/Globulin Ratio 1.34 L (1.60-3.17) Ratio Microbiology - Last 24 Hours (Table) 12/02/24 19:07 Gram Stain - Preliminary Ankle - Right Thrombosis Risk Factor Assmnt - Choose All That Apply Each Factor Represents 1 point: Age 41-60 years, Swollen legs (current) Thrombosis Risk Factor Assessment Total Risk Factor Score: 2 Thrombosis Risk Factor Assessment Level: Low Risk Assessment and Plan Assessment: Left ankle fracture with comminuted intra-articular fracture of the tibia and fibula Left lower ankle cellulitis and wound infection Mild hyponatremia 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 From medical perspective there is no contraindication to proceed with surgery although there is some risk. Follow-up culture results Labs and medication were reviewed.. Continue same treatment. Continue with symptomatic treatment. Resume home medication. Monitor labs and vitals. DVT and GI prophylaxis. Further recommendations as per clinical course of the patient DVT prophylaxis: Subcutaneous heparin GI Prophylaxis: Pepcid PT/OT: Pending Prognosis is guarded
[2024-12-03] MEDS ORDERED: ALBUTEROL NEBULIZED 2.5 MG/3 ML INHALATION PRN (14:34)
--- NOTE | 2024-12-03 15:23 | P.CNOR ---
History of Present Illness - [facility] Consult date: 12/03/24 Consult reason: fracture History of present illness: Patient is known to me through my office. Patient presented to the office approximately 1 week ago for an ankle injury. X-rays revealed a nondisplaced lateral malleolus fracture. Patient was immobilized in a walking boot, informed to be nonweightbearing, and had a regular follow-up scheduled. December 02 the patient was on the schedule. She had called the office stating that she thought she had an infection in the ankle. During the physical exam there is increased edema and erythema throughout the ankle and foot. There is a small (less than 0.5 cm) he wound on the medial side of the ankle. At the time the drainage appeared to be serosanguineous. Patient denied any constitutional symptoms. X- rays at the visit were also taken. It showed that the ankle is dislocated posteriorly. When the patient was asked whether or not she is walking, she initially denied it. However after further discussion she did admit that she took a shower without the boot on. I explained to her that this type of injury would have occurred if she had remained nonweightbearing and wearing the boot for immobilization. Due to her multiple comorbidities and the presence of infection with fracture, she was instructed to go to the emergency room at [facility] to be admitted. I spoke personally with Dr. Eyal Rice the emergency room and explained the situation. Dr. Rice started IV broad-spectrum antibiotics, order appropriate labs, and a CT scan of the ankle. The CT scan showed what was already evident on x-ray. There did not appear to be any bony destructive processes occurring. The patient was admitted the same day. White count has stabilized since her admission. Hemoglobin A1c is pending Past Medical History Past Medical History: Cancer, Diabetes Mellitus, GERD/Reflux, Hyperlipidemia, Hypertension, Osteoarthritis (OA) Additional Past Medical History / Comment(s): SVT. ALLERGIES. NEUROPATHY IN FEET. LEFT OPTIC NERVE DEFECT. St 4 melanoma external vaginal [ no tx at this time] awaiting insurance approval History of Any Multi-Drug Resistant Organisms: MRSA Year Discovered:: 06/27/17 MDRO Source:: LEFT GROIN Past Surgical History: Cholecystectomy Additional Past Surgical History / Comment(s): D & C Past Anesthesia/Blood Transfusion Reactions: No Reported Reaction, Motion Sickness Past Psychological History: Depression Smoking Status: Former smoker Past Alcohol Use History: Occasional Additional Past Alcohol Use History / Comment(s): QUIT@ AGE 27, 1PPD Past Drug Use History: None Reported - Past Family History Mother Family Medical History: Cancer, Deep Vein Thrombosis (DVT) Additional Family Medical History / Comment(s): RENAL CA Brother(s) Family Medical History: Deep Vein Thrombosis (DVT) Medications and Allergies Home Medications Medication Instructions Recorded Confirmed Type Albuterol Sulfate [Proventil Hfa] 2 puff INHALATION RT-Q6H PRN 07/19/17 12/02/24 History Pantoprazole Sodium [Protonix] 40 mg PO DAILY 07/19/17 12/02/24 History gemfibroziL [Lopid] 600 mg PO DAILY 07/19/17 12/02/24 History Insulin Glargine/Lixisenatide 60 units SQ AC-BRKFST 11/22/23 12/02/24 History [Soliqua 100 Unit-33 Mcg/ml Pen] Metoprolol Succinate (ER) [Toprol 50 mg PO DAILY 11/22/23 12/02/24 History XL] Rosuvastatin [Crestor] 10 mg PO HS 11/22/23 12/02/24 History Spironolactone 25 mg PO DAILY 11/22/23 12/02/24 History buPROPion XL [Wellbutrin XL] 150 mg PO DAILY 11/22/23 12/02/24 History dilTIAZem HCL [dilTIAZem HCL 24Hr 120 mg PO DAILY 11/22/23 12/02/24 History ER (CD)] Gabapentin 1,200 mg PO BID 12/02/24 12/02/24 History Losartan [Cozaar] 50 mg PO DAILY 12/02/24 12/02/24 History Allergies Allergy/AdvReac Type Severity Reaction Status Date / Time benazepril Allergy "throat Verified 12/02/24 20:46 closing" hydrocodone [From Vicodin] AdvReac Nausea & Verified 12/02/24 20:46 Vomiting Physical Examination Osteopathic Statement: *. No significant issues noted on an osteopathic s tructural exam other than those noted in the History and Physical/Consult. Patient was lying in bed. She is awake, alert, and oriented x 3. No apparent distress. Patient is wearing a fracture boot on the right ankle with the leg elevated Erythema and edema have decreased throughout the foot and ankle. A small wound is still present but drainage is decreased. CT scan shows posterior dislocation of the talus in the ankle mortise. There is posterior displacement and shortening of the lateral malleolus fracture. There is also valgus rotation of the talus. Results - Labs Labs: Abnormal Lab Results - Last 24 Hours (Table) 12/02/24 12/02/24 12/03/24 Range/Units 17:24 17:24 05:55 WBC 12.9 H (3.8-10.6) k/uL RBC 4.02 L (4.10-5.20) X 10*6/uL Hgb 11.4 L (12.0-15.0) g/dL Hct 36.0 L (37.2-46.3) % MCHC 31.7 L (32.0-37.0) g/dL Plt Count 559 H 552 H (150-450) k/uL Immature Gran # 0.05 H (0.00-0.04) X 10*3/uL Neutrophils # 9.7 H (1.3-7.7) k/uL Sodium 131 L (137-145) mmol/L Chloride 92 L (98-107) mmol/L BUN 21 H (7-17) mg/dL BUN/Creatinine Ratio (12.00-20.00) Ratio Glucose 108 H (74-99) mg/dL Albumin/Globulin Ratio (1.60-3.17) Ratio 12/03/24 Range/Units 05:55 WBC (3.8-10.6) k/uL RBC (4.10-5.20) X 10*6/uL Hgb (12.0-15.0) g/dL Hct (37.2-46.3) % MCHC (32.0-37.0) g/dL Plt Count (150-450) k/uL Immature Gran # (0.00-0.04) X 10*3/uL Neutrophils # (1.3-7.7) k/uL Sodium (137-145) mmol/L Chloride (98-107) mmol/L BUN (7-17) mg/dL BUN/Creatinine Ratio 21.86 H (12.00-20.00) Ratio Glucose (74-99) mg/dL Albumin/Globulin Ratio 1.34 L (1.60-3.17) Ratio Microbiology - Last 24 Hours (Table) 12/02/24 19:07 Gram Stain - Preliminary Ankle - Right H & H 12/02/24 12/03/24 Range/Units 17:24 05:55 Hgb 12.1 11.4 L (11.4-16.0) gm/dL Hct 36.6 36.0 L (34.0-46.0) % Coagulation 12/02/24 Range/Units 19:27 INR 0.9 (<1.2) Result Diagrams: 12/03/24 05:55 12/03/24 05:55 - Diagnostic results Ankle/Foot CT: report reviewed, image reviewed Assessment and Plan Assessment: Displaced bimalleolar fracture right ankle. Right ankle dislocation. Plan: Discussed the findings with the patient, which were similar to what we discussed in the office on December 02. The goal is to stabilize the talus back into the ankle mortise. Due to the presence of infection, internal fixation is not feasible at this time. Therefore the decision for an external fixator was made. This will allow the ankle to be relocated under the tibia and also avoid any area of infection. The wound also be debrided and irrigated at the time of surgery. Once the infection is cleared and stabilized, the external fixator be removed and then definitive fixation will be performed. The tendency is for tibial talocalcaneal arthrodesis with intramedullary nail in the situations however we will have to observe the ankle with the external fixator is on to assess the stability. I did tell the patient that these are very unstable fracture it is difficult to relocate them even with sound internal fixation. That is why often times intramedullary nail is necessary. Surgery scheduled for December 04, 2024.
[2024-12-03] MEDS: HEPARIN SODIUM,PORCINE 5,000 UNIT/ML 1 ML VIAL SQ SCH (16:26)
[2024-12-03 17:16] LABS: Glucose,Whole Blood 172 mg/dL (70-110)
[2024-12-03] MEDS ORDERED: AMPICILLIN-SULBACTAM 3 GM in SODIUM CHLORIDE 0.9% 50 ML IVPB SCH (18:00)
[2024-12-03] MEDS: AMPICILLIN-SULBACTAM 3 GM in SODIUM CHLORIDE 0.9% 100 ML IVPB SCH (18:02)
--- NOTE | 2024-12-03 19:11 | P.CONS ---
History of Present Illness - Reason for Consult Consult date: 12/03/24 melanoma Requesting physician: Sadi Rice - Chief Complaint right ankle pain, redness - History of Present Illness Ms Acosta is a 54 year old female with a significant history of metastatic melanoma, who follows with Dr. Botello. The patient had developed some vaginal spotting in mid 2023. her last menstrual cycle was in her 30s. Associated with this, she had noted some discomfort in the right lower pelvic area, with subsequent development of a lump in the pudendal area. he also had episodes of "spraying of the urine". She was seen by her primary care physician and was found to have an abnormality involving the vulva. She was then referred to [facility]. On their exam she was found to have a large mass with necrosis, involving the vulva, with extension to the urethral meatus. The patient had a biopsy of 09/25/24 revealing malignant melanoma with necrosis with lesion being present at the tissue edges. transvaginal ultrasound on 09/02/24 had shown no major findings. She was seen by [facility], and had a PET scan ordered, and was also referred to the melanoma clinic at the [facility]. Unfortunately the PET scan showed evidence of metastatic disease, with intense activity at the primary site, prominent to large wide excision lymph nodes in the abdomen, pelvis and inguinal regions, as well as numerous hypermetabolic lesions in the liver consistent with metastatic disease. There was also focal activity at L1, as well as to the right of the sacrum, and the left of the coccyx, which were felt to represent metastatic lesions. The patient was seen by Dr. Knutson at the melanoma clinic, and systemic therapy with immunotherapy combination was recommended. The patient wanted to have treatment closer to home due to which she was referred to our clinic. The patient is being seen for a new diagnosis of malignant melanoma arising from the vulva, which is unfortunately metastatic at presentation. She was recommended to be started on double immunotherapy with Opdualag. Prior auth and financial assistance has been obtained and plan to initiate treatment soon. MRI brain obtained on 11/16/2024 was negative for metastatic disease. Patient presented to the emergency room for right ankle pain, swelling and redness. Patient sustained a fall fracturing her right ankle and has more recently noticed increasing swelling welling and redness. Upon admission CT of right ankle showing posterior lateral dislocation of the foot with comminuted intra-articular fractures of the tibia and fibula. No organizing fluid collection or osseous erosion identified. There is diffuse anasarca of the soft tissues and a joint effusion noted. Patient is been started on Unasyn and orthopedics have been consulted. Review of Systems 10 point ROS is negative except as stated in the HPI Past Medical History Past Medical History: Diabetes Mellitus, GERD/Reflux, Hyperlipidemia, Hypertension, Osteoarthritis (OA) Additional Past Medical History / Comment(s): SVT. ALLERGIES. NEUROPATHY IN FEET. 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 Year Discovered:: 06/27/17 MDRO Source:: LEFT GROIN Additional Past Surgical History / Comment(s): D & C Past Anesthesia/Blood Transfusion Reactions: No Reported Reaction, Motion Sickness Past Psychological History: Depression Smoking Status: Former smoker Past Alcohol Use History: Occasional Past Drug Use History: None Reported - Past Family History Mother Family Medical History: Cancer, Deep Vein Thrombosis (DVT) Additional Family Medical History / Comment(s): RENAL CA Brother(s) Family Medical History: Deep Vein Thrombosis (DVT) Medications and Allergies Home Medications Medication Instructions Recorded Confirmed Type Albuterol Sulfate [Proventil Hfa] 2 puff INHALATION RT-Q6H PRN 07/19/17 12/02/24 History Pantoprazole Sodium [Protonix] 40 mg PO DAILY 07/19/17 12/02/24 History gemfibroziL [Lopid] 600 mg PO DAILY 07/19/17 12/02/24 History Insulin Glargine/Lixisenatide 60 units SQ AC-BRKFST 11/22/23 12/02/24 History [Soliqua 100 Unit-33 Mcg/ml Pen] Metoprolol Succinate (ER) [Toprol 50 mg PO DAILY 11/22/23 12/02/24 History XL] Rosuvastatin [Crestor] 10 mg PO HS 11/22/23 12/02/24 History Spironolactone 25 mg PO DAILY 11/22/23 12/02/24 History buPROPion XL [Wellbutrin XL] 150 mg PO DAILY 11/22/23 12/02/24 History dilTIAZem HCL [dilTIAZem HCL 24Hr 120 mg PO DAILY 11/22/23 12/02/24 History ER (CD)] Gabapentin 1,200 mg PO BID 12/02/24 12/02/24 History Losartan [Cozaar] 50 mg PO DAILY 12/02/24 12/02/24 History Allergies Allergy/AdvReac Type Severity Reaction Status Date / Time benazepril Allergy "throat Verified 12/02/24 20:46 closing" hydrocodone [From Vicodin] AdvReac Nausea & Verified 12/02/24 20:46 Vomiting Physical Exam Vitals: Vital Signs Temp Pulse Pulse Resp BP BP Pulse Ox 12/03/24 08:15 97.8 F 83 18 125/77 99 12/03/24 07:04 97.8 F 76 18 136/82 98 12/03/24 05:00 71 18 134/70 95 12/02/24 20:37 72 18 117/77 97 12/02/24 16:40 98.4 F 86 18 148/72 96 Intake and Output 12/02/24 12/03/24 12/03/24 22:59 06:59 14:59 Other: Weight 158.757 kg - Constitutional General appearance: no acute distress, obese - EENT Eyes: anicteric sclerae, EOMI ENT: hearing grossly normal - Respiratory breathing is even and unlabored - Cardiovascular well perfused - Integumentary Integumentary: no cyanotic, no jaundiced - Musculoskeletal medial aspect right ankle erythema, edema and drainage noted - Psychiatric Psychiatric: A&O x's 3 Results CBC & Chem 7: 12/03/24 05:55 12/03/24 05:55 Labs: Abnormal Lab Results - Last 24 Hours (Table) 12/02/24 12/02/24 12/03/24 Range/Units 17:24 17:24 05:55 WBC 12.9 H (3.8-10.6) k/uL RBC 4.02 L (4.10-5.20) X 10*6/uL Hgb 11.4 L (12.0-15.0) g/dL Hct 36.0 L (37.2-46.3) % MCHC 31.7 L (32.0-37.0) g/dL Plt Count 559 H 552 H (150-450) k/uL Immature Gran # 0.05 H (0.00-0.04) X 10*3/uL Neutrophils # 9.7 H (1.3-7.7) k/uL Sodium 131 L (137-145) mmol/L Chloride 92 L (98-107) mmol/L BUN 21 H (7-17) mg/dL BUN/Creatinine Ratio (12.00-20.00) Ratio Glucose 108 H (74-99) mg/dL Albumin/Globulin Ratio (1.60-3.17) Ratio 12/03/24 Range/Units 05:55 WBC (3.8-10.6) k/uL RBC (4.10-5.20) X 10*6/uL Hgb (12.0-15.0) g/dL Hct (37.2-46.3) % MCHC (32.0-37.0) g/dL Plt Count (150-450) k/uL Immature Gran # (0.00-0.04) X 10*3/uL Neutrophils # (1.3-7.7) k/uL Sodium (137-145) mmol/L Chloride (98-107) mmol/L BUN (7-17) mg/dL BUN/Creatinine Ratio 21.86 H (12.00-20.00) Ratio Glucose (74-99) mg/dL Albumin/Globulin Ratio 1.34 L (1.60-3.17) Ratio Microbiology - Last 24 Hours (Table) 12/02/24 19:07 Gram Stain - Preliminary Ankle - Right Comments: CT ankle reviewed MRI - head: report reviewed Assessment and Plan (1) Melanoma Current Visit: No Status: Acute Priority: High Code(s): C43.9 - MALIGNANT MELANOMA OF SKIN, UNSPECIFIED SNOMED Code(s): 848264197 (2) Ankle fracture, right Current Visit: Yes Status: Acute Priority: High Code(s): S82.891A - OTH FRACTURE OF RIGHT LOWER LEG, INIT FOR CLOS FX SNOMED Code(s): 56571893 (3) Cellulitis Current Visit: Yes Status: Acute Priority: High Code(s): L03.90 - CELLULIT IS, UNSPECIFIED SNOMED Code(s): 633564433 Plan: Right ankle fracture, cellulitiis: Patient presented to the emergency room for right ankle pain, swelling and redness. Patient sustained a fall, fracturing her right ankle and has more recently noticed increasing swelling welling and redness. -Upon admission CT of right ankle showing posterior lateral dislocation of the foot with comminuted intra-articular fractures of the tibia and fibula. No organizing fluid collection or osseous erosion identified. There is diffuse anasarca of the soft tissues and a joint effusion noted. -Unasyn started -Orthopedics have been consulted Metastatic melanoma: -Oncology history as stated in the HPI -She was recommended to be started on double immunotherapy with Opdualag. Prior auth and financial assistance has been obtained and plan to start treatment once recovered/discharged
[2024-12-03 20:32] LABS: Glucose,Whole Blood 106 mg/dL (70-110)
[2024-12-03] MEDS: ATORVASTATIN 20 MG TAB PO SCH (20:41)
[2024-12-03] MEDS: GABAPENTIN 300 MG CAP PO SCH (20:42)
[2024-12-03] MEDS ORDERED: FAMOTIDINE 20 MG/2 ML VIAL IV SCH (21:00)
--- NOTE | 2024-12-03 23:43 | P.CONS ---
History of Present Illness - Reason for Consult Consult date: 12/03/24 Ankle fracture with infection Requesting physician: Sadi Rice - Chief Complaint Increasing pain swelling redness and drainage to the right ankle x days - History of Present Illness Patient is a 54-year-old female with a past medical history of again for diabetes mellitus hypertension hyperlipidemia reflux with a recent injury did have a fall when trying to get into the car after an MRI and the patient was noticed to have a nondisplaced right lateral malleolus fracture with the patient has been evaluated by orthopedics and the patient was immobilized in a walking boot with instruction on nonweightbearing patient started having increasing swelling and redness to the right ankle area that has progressed over the last few days patient denies any further trauma to the ED has been complaining of pain describing it to be sharp throbbing, almost 10 of 10 in severity without any radiation with associated swelling redness and did have some drainage for the patient was advised to go to the hospital on arrival to the ER the patient was afebrile no fever have recorded subsequently patient was not tachycardic hypotensive or hypoxic she did have white count of 12.9 with a left shift creatinine 0.71 liver enzymes are normal patient did have a ankle CT did show some posterior lateral dislocation of the foot with communicated intra-articular fracture of the tibia and fibula no organizing fluid collection or bony erosion visualized patient did have local cultures obtained she was started on vancomycin Unasyn infectious he was consulted for further management of antibiotic therapy patient was not on antibiotic in the recent past Review of Systems Positive point and negatives has been mentioned in the HPI, complete review of systems was performed and all other systems are negative Past Medical History Past Medical History: Diabetes Mellitus, GERD/Reflux, Hyperlipidemia, Hypertensi on, Osteoarthritis (OA) Additional Past Medical History / Comment(s): SVT. ALLERGIES. NEUROPATHY IN FEET. 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 Year Discovered:: 06/27/17 MDRO Source:: LEFT GROIN Additional Past Surgical History / Comment(s): D & C Past Anesthesia/Blood Transfusion Reactions: No Reported Reaction, Motion Sickness Past Psychological History: Depression Smoking Status: Former smoker Past Alcohol Use History: Occasional Past Drug Use History: None Reported - Past Family History Mother Family Medical History: Cancer, Deep Vein Thrombosis (DVT) Additional Family Medical History / Comment(s): RENAL CA Brother(s) Family Medical History: Deep Vein Thrombosis (DVT) Medications and Allergies Home Medications Medication Instructions Recorded Confirmed Type Albuterol Sulfate [Proventil Hfa] 2 puff INHALATION RT-Q6H PRN 07/19/17 12/02/24 History Pantoprazole Sodium [Protonix] 40 mg PO DAILY 07/19/17 12/02/24 History gemfibroziL [Lopid] 600 mg PO DAILY 07/19/17 12/02/24 History Insulin Glargine/Lixisenatide 60 units SQ AC-BRKFST 11/22/23 12/02/24 History [Soliqua 100 Unit-33 Mcg/ml Pen] Metoprolol Succinate (ER) [Toprol 50 mg PO DAILY 11/22/23 12/02/24 History XL] Rosuvastatin [Crestor] 10 mg PO HS 11/22/23 12/02/24 History Spironolactone 25 mg PO DAILY 11/22/23 12/02/24 History buPROPion XL [Wellbutrin XL] 150 mg PO DAILY 11/22/23 12/02/24 History dilTIAZem HCL [dilTIAZem HCL 24Hr 120 mg PO DAILY 11/22/23 12/02/24 History ER (CD)] Gabapentin 1,200 mg PO BID 12/02/24 12/02/24 History Losartan [Cozaar] 50 mg PO DAILY 12/02/24 12/02/24 History Allergies Allergy/AdvReac Type Severity Reaction Status Date / Time benazepril Allergy "throat Verified 12/02/24 20:46 closing" hydrocodone [From Vicodin] AdvReac Nausea & Verified 12/02/24 20:46 Vomiting Physical Exam Vitals: Vital Signs Temp Pulse Pulse Resp BP BP Pulse Ox 12/03/24 08:15 97.8 F 83 18 125/77 99 12/03/24 07:04 97.8 F 76 18 136/82 98 12/03/24 05:00 71 18 134/70 95 12/02/24 20:37 72 18 117/77 97 12/02/24 16:40 98.4 F 86 18 148/72 96 Intake and Output 12/02/24 12/03/24 12/03/24 22:59 06:59 14:59 Other: Weight 158.757 kg GENERAL DESCRIPTION: Middle-aged female lying in bed, no distress. No tachypnea or accessory muscle of respiration use. HEENT: Shows Pallor , no scleral icterus. Oral mucous membrane is dry. NECK: Trachea central, no thyromegaly. LUNGS: Unlabored breathing. Clear to auscultation anteriorly. No wheeze or crackle. HEART: S1, S2, regular rate and rhythm. No loud murmur ABDOMEN: Soft, no tenderness , guarding or rigidity, no organomegaly EXTREMITIES: Right ankle area did have 2 previous swelling and a small wound with minimal drainage SKIN: No rash, no masses palpable. NEUROLOGICAL: The patient is awake, alert, oriented x3, mood and affect normal. Results CBC & Chem 7: 12/03/24 05:55 12/03/24 05:55 Labs: Abnormal Lab Results - Last 24 Hours (Table) 12/02/24 12/02/24 12/03/24 Range/Units 17:24 17:24 05:55 WBC 12.9 H (3.8-10.6) k/uL RBC 4.02 L (4.10-5.20) X 10*6/uL Hgb 11.4 L (12.0-15.0) g/dL Hct 36.0 L (37.2-46.3) % MCHC 31.7 L (32.0-37.0) g/dL Plt Count 559 H 552 H (150-450) k/uL Immature Gran # 0.05 H (0.00-0.04) X 10*3/uL Neutrophils # 9.7 H (1.3-7.7) k/uL Sodium 131 L (137-145) mmol/L Chloride 92 L (98-107) mmol/L BUN 21 H (7-17) mg/dL BUN/Creatinine Ratio (12.00-20.00) Ratio Glucose 108 H (74-99) mg/dL Albumin/Globulin Ratio (1.60-3.17) Ratio 12/03/24 Range/Units 05:55 WBC (3.8-10.6) k/uL RBC (4.10-5.20) X 10*6/uL Hgb (12.0-15.0) g/dL Hct (37.2-46.3) % MCHC (32.0-37.0) g/dL Plt Count (150-450) k/uL Immature Gran # (0.00-0.04) X 10*3/uL Neutrophils # (1.3-7.7) k/uL Sodium (137-145) mmol/L Chloride (98-107) mmol/L BUN (7-17) mg/dL BUN/Creatinine Ratio 21.86 H (12.00-20.00) Ratio Glucose (74-99) mg/dL Albumin/Globulin Ratio 1.34 L (1.60-3.17) Ratio Microbiology - Last 24 Hours (Table) 12/02/24 19:07 Gram Stain - Preliminary Ankle - Right Assessment and Plan (1) Cellulitis of right ankle Current Visit: Yes Status: Acute Code(s): L03.115 - CELLULITIS OF RIGHT LOWER LIMB SNOMED Code(s): 91382467088481279 (2) Ankle ulcer Current Visit: Yes Status: Acute Code(s): L97.309 - NON-PRESSURE CHRONIC ULCER OF UNSP ANKLE WITH UNSP SEVERITY SNOMED Code(s): 379542270 Plan: 1patient presented to hospital with increasing pain swelling redness and drainage to right ankle area in this patient who recently did have right ankle nondisplaced fracture now with a worsening swelling redness concerning for cellulitis and CT has been suggestive of posterior dislocation of the foot with plan for operative repair with internal fixator per orthopedics foot and ankle which is appropriate 2-patient is currently covered with the vancomycin and Unasyn that should provide adequate empiric antibiotic coverage while waiting for the culture to finalize Question concern were answered We will follow on clinical condition and cultures to further adjust medication if needed Thank you for this consultation we will follow the patient along with you Dictation was produced using [employer] dictation software. please excuse any grammatical, word or spelling errors. Time with Patient: Greater than 30
[2024-12-04 07:01] LABS: Glucose,Whole Blood 111 mg/dL (70-110)
[2024-12-04] MEDS: SPIRONOLACTONE 25 MG TAB PO SCH (08:55)
[2024-12-04] MEDS: METOPROLOL SUCCINATE (ER) 50 MG TAB.ER.24H PO SCH (08:55)
[2024-12-04] MEDS: FENOFIBRATE 160 MG TAB PO SCH (08:55)
[2024-12-04] MEDS: DILTIAZEM CD 120 MG CAP.ER.24H PO SCH (08:55)
[2024-12-04] MEDS: buPROPion XL 150 MG TAB.ER.24H PO SCH (08:55)
[2024-12-04] MEDS: PANTOPRAZOLE 40 MG TABLET PO SCH (08:55)
[2024-12-04 09:07] LABS: African American GFR (CKD) >90 (>60 ml/min/1.73 sqM); Non-African American GFR(CKD) >90 (>60 ml/min/1.73 sqM)
[2024-12-04 12:04] LABS: Glucose,Whole Blood 125 mg/dL (70-110)
[2024-12-04] MEDS: IV FLUID CONTINUATION 1,000 ML IV ONE (13:10)
[2024-12-04] MEDS ORDERED: NEOSTIGMINE 1 MG/ML 10 ML VIAL ONE (13:32)
[2024-12-04] MEDS ORDERED: LIDOCAINE 1% INJ 10MG/ML (20 ML MDV) ONE (13:32)
[2024-12-04] MEDS ORDERED: GLYCOPYRROLATE 0.2 MG/ML 2 ML VIAL ONE (13:32)
[2024-12-04] MEDS ORDERED: SUCCINYLCHOLINE CHLORIDE 200 MG/10 ML VIAL IV ONE (13:32)
[2024-12-04] MEDS ORDERED: fentaNYL (PF) 50 MCG/ML 2 ML AMP ONE (13:32)
[2024-12-04] MEDS ORDERED: HYDROmorphone (PF) 1 MG/ML ONE (13:32)
[2024-12-04] MEDS ORDERED: PROPOFOL 10 MG/ML 20 ML VIAL IV ONE (13:32)
[2024-12-04] MEDS ORDERED: LIDOCAINE 4% LTA KIT (4 ML) TOPICAL ONE (13:32)
[2024-12-04] MEDS ORDERED: ROCURONIUM 10 MG/ML (5 ML VIAL) IV ONE (13:32)
[2024-12-04] MEDS ORDERED: MIDAZOLAM 2 MG/2 ML VIAL ONE (13:32)
[2024-12-04] MEDS: SCOPOLAMINE 1 MG/72 HR PATCH TRANSDERM STA (13:49)
[2024-12-04] MEDS: MIDAZOLAM 2 MG/2 ML VIAL IV ONE (13:50)
[2024-12-04] MEDS: ceFAZolin 1,000 MG in SODIUM CHLORIDE 0.9% 1,000 ML IRRIGATION ONE (14:26)
[2024-12-04] MEDS: SODIUM CHLORIDE 0.9% 1,000 ML IV ONE (14:38)
--- NOTE | 2024-12-04 15:43 | FL ---
EXAMINATION TYPE: FL guidance operating room, XR ankle complete RT DATE OF EXAM: 12/04/2024 FLUOROSCOPY RT ANKLE EXTERNAL FIXATOR. CLOSED REDUCTION. 45 SECS FL. 0.395 DAP Single lateral image of the hind foot is provided for a external fixator placement. Posterior malleol ar fractured is identified. [facility], , 12/04/2024 3:41 PM
--- NOTE | 2024-12-04 16:01 | P.OP ---
Date of Procedure: 12/04/24 Preoperative Diagnosis: 1. Displaced bimalleolar fracture right ankle 2. Right ankle dislocation Postoperative Diagnosis: 1. Same 2. Same 3. Open dislocation right ankle Procedure(s) Performed: 1. Closed reduction of right ankle dislocation 2. Application of multiplane external fixator right leg 3. Irrigation debridement of right ankle wound Implants: Half pins and through and through pins for application of the external fixator Anesthesia: GETA Estimated Blood Loss (ml): 100 Pathology: none sent Condition: stable Disposition: PACU Description of Procedure: The patient was brought into the op room placed on table in supine position. Timeout was taken to confirm correct patient identifiers, correct laterality of surgery, and correct procedure. Once all staff in the room was in agreement with the timeout, the patient was induced and placed under general anesthesia. A well-padded tourniquet was placed on the right thigh and a wedge beneath the right hip to internally rotate the right leg. The right leg was prepped and draped usual manner. The right leg was exsanguinated and the tourniquet inflated to 250 mmHg. Closed reduction to the ankle was attempted. Although the ankle could be manually reduced it did not stay reduced. Under direct fluoroscopic visualization the location for the tibial half pins was marked and made on the skin. Small stab incisions were made for the drilling. Drilling was done through the anterior cortex only. The half pins were inserted and advanced until they penetrated the posterior cortex were bicortical fixation. The parallel guide was applied to the first wire so that the next wire could be placed parallel. The 5 hole block was placed over the tibial pins. A through and through pin was then placed to the calcaneus until the threads were within the calcaneus. Appropriate connectors were applied to the pins. Appropriate length rods were then attached to the couplers. The ankle was manipulated under direct fluoroscopy until the ankle was relocated into the mortise. AP's were done and then the ankle was adjusted again to make sure that there was not any lateral valgus deformity. Once the ankle was in satisfactory position all the initial couplers were tightened down. A hybrid half pin was then placed into the medial side of the base of the first metatarsal. I couplers placed on the medial downward anthony as well as the new pin. Another anthony was then placed between the 2 new couplers and then tightened down fully. Final fluoroscopic imaging showed close to anatomic alignment of the ankle in the AP and lateral views. All hardware was properly positioned. Then attention was directed over the medial ankle where the previous wound was located. And a linear incision was made over the wound and deepened. There appeared to be direct communication with the joint. There was no purulence with inspection. The wound was irrigated with 2 L of normal saline with antibiotic solution. The incision was loosely closed with 3-0 nylon. The incision as well as the pin entry points were covered with Betadine soaked Adaptic. ABDs were placed over the pin sites and then wrapped and a dry sterile bandage. The tourniquet was released and capillary refill returned all digits of the right foot. Anesthesia was reversed and the patient was taken recovery with vital signs stable.
[2024-12-04] MEDS: HYDROmorphone 0.5 MG/0.5 ML SYRINGE IVP PRN (16:12)
--- NOTE | 2024-12-04 16:35 | P.PN ---
Subjective Progress Note Date: 12/04/24 Pt scheduled right ankle surgery today. Wound culture positive for staph. Continues on IV abx. C/o persisting vaginal discomfort, foul smelling vaginal discharge and dysuria Objective - Vital Signs Vital signs: Vital Signs Temp 97.7 F 12/04/24 07:04 Pulse 103 H 12/04/24 07:04 Resp 20 12/04/24 07:04 BP 175/89 12/04/24 07:04 Pulse Ox 95 12/04/24 07:04 FiO2 Intake & Output 12/03/24 12/04/24 12/04/24 18:59 06:59 18:59 Intake Total 780 1600 Balance 780 1600 Weight 158.757 kg Intake: Intake, IV Titration 1600 Amount Ampicillin-Sulbactam 3 gm 200 In Sodium Chloride 0.9% 100 ml @ 200 mls/hr IVPB Q6HR [facility] Rx#:[id number] Sodium Chloride 0.9% 1, 900 000 ml @ 75 mls/hr IV . [id number] [facility] Rx#:[id number] Vancomycin 2,250 mg In 500 Sodium Chloride 0.9% 500 ml 500 ml @ 167 mls/hr IVPB Q12H [facility] Rx#: [id number] Oral 780 Other: # Voids 3 3 - Constitutional General appearance: Present: no acute distress, obese - EENT Eyes: Present: anicteric sclerae, EOMI ENT: Present: hearing grossly normal - Respiratory Details: breathing is even and unlabored - Cardiovascular Details: skin warm and dry - Gastrointestinal General gastrointestinal: Present: soft. Absent: tenderness - Integumentary Integumentary: Absent: cyanotic - Psychiatric Psychiatric: Present: A&O x's 3 - Labs CBC & Chem 7: 12/03/24 05:55 12/04/24 07:57 Labs: Abnormal Lab Results - Last 24 Hours (Table) 12/03/24 12/04/24 12/04/24 Range/Units 17:05 06:59 12:03 POC Glucose (mg/dL) 172 H 111 H 125 H (70-110) mg/dL Microbiology - Last 24 Hours (Table) 12/02/24 19:07 Gram Stain - Preliminary Ankle - Right Wound Culture - Preliminary Staph pseudointermedius Staphylococcus schleiferi 12/02/24 17:24 Blood Culture - Preliminary Blood Assessment and Plan (1) Melanoma Current Visit: No Status: Acute Priority: High Code(s): C43.9 - MALIGNANT MELANOMA OF SKIN, UNSPECIFIED SNOMED Code(s): 501322423 (2) Ankle fracture, right Current Visit: Yes Status: Acute Priority: High Code(s): S82.891A - OTH FRACTURE OF RIGHT LOWER LEG, INIT FOR CLOS FX SNOMED Code(s): 87106137 (3) Cellulitis Current Visit: Yes Status: Acute Priority: High Code(s): L03.90 - CELLULITIS, UNSPECIFIED SNOMED Code(s): 589373285 Plan: Right ankle fracture, cellulitiis: Patient presented to the emergency room for right ankle pain, swelling and redness. Patient sustained a fall, fracturing her right ankle and has more recently noticed increasing swelling and redness. -Upon admission CT of right ankle showing posterior lateral dislocation of the foot with comminuted intra-articular fractures of the tibia and fibula. No organizing fluid collection or osseous erosion identified. There is diffuse anasarca of the soft tissues and a joint effusion noted. -Wound culture positive for staph -Unasyn and Vanco started -Orthopedics have been consulted, and pt scheduled for ankle surgery today Vaginal pain/discharge: C/o vaginal burning/discharge and dysuria. Sx have been ongoing but are worsening -May be r/t malignancy, but will obtain UA, affirm and fungal vaginal swab to r/o other causes Metastatic melanoma: -Oncology history as stated in the HPI -She was recommended to be started on double immunotherapy with Opdualag. Prior auth and financial assistance has been obtained and plan to start treatment once recovered/discharged
[2024-12-04 16:53] LABS: Glucose,Whole Blood 96 mg/dL (70-110)
[2024-12-04 17:43] LABS: Glucose,Whole Blood 102 mg/dL (70-110)
[2024-12-04] MEDS: MIDAZOLAM 2 MG/2 ML VIAL IM ONE (18:26)
[2024-12-04 20:34] LABS: Glucose,Whole Blood 128 mg/dL (70-110)
--- NOTE | 2024-12-04 22:12 | P.PN ---
Subjective Progress Note Date: 12/04/24 Principal diagnosis: Reason for follow-up is right ankle wound and cellulitis Patient is a 54-year-old female with a past medical history of again for diabetes mellitus hypertension hyperlipidemia reflux with a recent injury with right ankle fracture admitted to hospital with worsening pain swelling redness concerning for infection. On today's evaluation that is 12/04/2024,the patient denies any fever or any chills, patient is breathing comfortably on room air, the patient denies chest pain shortness of breath and no significant cough, patient denies abdominal pain, no nausea vomiting or diarrhea. Pain to the right ankle is currently controlled. Patient did have creatinine 0.53 no CBC was done today cultures currently pending Objective - Vital Signs Vital signs: Vital Signs Temp 97.7 F 12/04/24 07:04 Pulse 103 H 12/04/24 07:04 Resp 20 12/04/24 07:04 BP 175/89 12/04/24 07:04 Pulse Ox 95 12/04/24 07:04 FiO2 Intake & Output 12/03/24 12/04/24 12/04/24 18:59 06:59 18:59 Intake Total 780 1600 Balance 780 1600 Weight 158.757 kg Intake: Intake, IV Titration 1600 Amount Ampicillin-Sulbactam 3 gm 200 In Sodium Chloride 0.9% 100 ml @ 200 mls/hr IVPB Q6HR [facility] Rx#:[id number] Sodium Chloride 0.9% 1, 900 000 ml @ 75 mls/hr IV . [id number] [facility] Rx#:[id number] Vancomycin 2,250 mg In 500 Sodium Chloride 0.9% 500 ml 500 ml @ 167 mls/hr IVPB Q12H [facility] Rx#: [id number] Oral 780 Other: # Voids 3 3 - Exam GENERAL DESCRIPTION: Middle-age female lying in bed in no distress RESPIRATORY SYSTEM: Unlabored breathing , decreased breath sounds at bases HEART: S1 S2 regular rate and rhythm , ABDOMEN: Soft , no tenderness EXTREMITIES: Right ankle with a wound surrounding swelling minimal redness - Labs CBC & Chem 7: 12/03/24 05:55 12/04/24 07:57 Labs: Abnormal Lab Results - Last 24 Hours (Table) 12/03/24 12/04/24 Range/Units 17:05 06:59 POC Glucose (mg/dL) 172 H 111 H (70-110) mg/dL Microbiology - Last 24 Hours (Table) 12/02/24 19:07 Gram Stain - Preliminary Ankle - Right Wound Culture - Preliminary Staph pseudointermedius Staphylococcus schleiferi 12/02/24 17:24 Blood Culture - Preliminary Blood Assessment and Plan (1) Cellulitis of right ankle Current Visit: Yes Status: Acute Code(s): L03.115 - CELLULITIS OF RIGHT LOWER LIMB SNOMED Code(s): 40420599873835246 (2) Ankle ulcer Current Visit: Yes Status: Acute Code(s): L97.309 - NON-PRESSURE CHRONIC ULCER OF UNSP ANKLE WITH UNSP SEVERITY SNOMED Code(s): 629744681 Plan: 1patient presented to hospital with increasing pain swelling redness and drainage to right ankle area in this patient who recently did have right ankle nondisplaced fracture now with a worsening swelling redness concerning for cellulitis and CT has been suggestive of posterior dislocation of the foot with plan for operative repair with External fixator per orthopedics foot and ankle which is appropriate 2-patient will be treated with the vancomycin and Unasyn while waiting for the culture to finalize Dictation was produced using [employer] dictation software. please excuse any grammatical, word or spelling errors. Time with Patient: Less than 30
--- NOTE | 2024-12-05 01:20 | P.PN ---
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 Presents because of her right ankle fracture. Patient had fracture about 2 weeks ago when she fell. She has a hard cast. Recently was noticed that becoming more red and more painful for her therefore she decided to come to em ergency room Patient pain was controlled currently She denies chest pain or dyspnea. No specific GI symptoms like no abdominal pain vomiting or diarrhea. Patient complaining from some dysuria No headache dizziness weakness or numbness. She denies smoking alcohol or illicit drugs. On admission patient was afebrile and hemodynamically stable She had mild leukocytosis of 12.9 and sodium 131. Rest of labs including CBC, BMP and LFT and INR were unremarkable CT of the ankle showing posterior lateral dislocation of the foot with comminuted intra-articular fracture of the tibia and fibula. No fluid collection 12/04/2024 Patient is seen and evaluated in follow-up today with multiple consultations following including oncology, infectious disease, and podiatry surgeon Dr. Mike. Patient is currently n.p.o. for internal fixation of the right ankle today and will await official report. Patient being maintained on antibiotics and continued wound care with infectious disease following and will continue current regimen for now. Oncology following with significant history of melanoma reporting vaginal discomfort and foul-smelling discharge. Cultures being obtained and pending at this time. Patient is afebrile with no reports of chest pain or shortness of breath. Review of systems: Constitutional: No reports of fatigue, fever, or chills Cardiovascular: No reports of chest pain or palpitations Respiratory: No reports of shortness of breath or cough GI: No reports of nausea, vomiting, or diarrhea : No reports of dysuria or retention Neurovascular: reports of generalized weakness and continued right ankle discomfort All medications have been reviewed Physical exam: GENERAL: The patient is alert and oriented x3, not in any acute distress. Well developed, well nourished. Appears older than stated age, morbidly obese HEENT: Pupils are round and equally reacting to light. EOMI. No scleral icterus. No conjunctival pallor. Normocephalic, atraumatic. No pharyngeal erythema. No thyromegaly. CARDIOVASCULAR: S1 and S2 present. No murmurs, rubs, or gallops. PULMONARY: Diminished breath sounds bilaterally otherwise chest is clear to auscultation, no wheezing , no crackles. ABDOMEN: Soft, obese, nontender, nondistended, normoactive bowel sounds. No palpable organomegaly. MUSCULOSKELETAL: No joint swelling or deformity. EXTREMITIES: No cyanosis, clubbing, or pedal edema. Right ankle fracture on hard cast in place, rest of exam is deferred to surgery team NEUROLOGICAL: Gross neurological examination did not reveal any focal deficits. SKIN: No rashes. no petechiae. Assessment: Right ankle fracture with comminuted intra-articular fracture of the tibia and fibula, scheduled to undergo internal fixation with Dr. 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 Zay Mike following and scheduled to undergo internal fixation this afternoon. From medical perspective there is no contraindication to proceed with surgery although there is some risk. Will await official surgical report with recommendations and have PT/OT evaluate with restrictions per orthopedics. Patient reports she wants to go home on discharge and social work following Awaiting cultures to discuss further with infectious disease regarding antibiotics need on discharge The impression and plan of care has been dictated by Roselyn Rod, Nurse Practitioner as directed. Dr. Randy MD I have performed a history and examination and MDM of this patient, discussed the same with the dictator, and agree with the dictator's assessment and plan as written ,documented as a scribe. Based on total visit time, I have performed more than 50% of the visit. Objective - Vital Signs Vital signs: Vital Signs Temp 97.7 F 12/04/24 07:04 Pulse 103 H 12/04/24 07:04 Resp 20 12/04/24 07:04 BP 175/89 12/04/24 07:04 Pulse Ox 95 12/04/24 07:04 FiO2 Intake & Output 12/03/24 12/04/24 12/04/24 18:59 06:59 18:59 Intake Total 780 1600 Balance 780 1600 Weight 158.757 kg Intake: Intake, IV Titration 1600 Amount Ampicillin-Sulbactam 3 gm 200 In Sodium Chloride 0.9% 100 ml @ 200 mls/hr IVPB Q6HR [facility] Rx#:[id number] Sodium Chloride 0.9% 1, 900 000 ml @ 75 mls/hr IV . [id number] [facility] Rx#:[id number] Vancomycin 2,250 mg In 500 Sodium Chloride 0.9% 500 ml 500 ml @ 167 mls/hr IVPB Q12H [facility] Rx#: [id number] Oral 780 Other: # Voids 3 3 - Labs CBC & Chem 7: 12/03/24 05:55 12/04/24 07:57 Labs: Abnormal Lab Results - Last 24 Hours (Table) 12/03/24 12/03/24 12/04/24 Range/Units 05:55 17:05 06:59 BUN/Creatinine Ratio 21.86 H (12.00-20.00) Ratio POC Glucose (mg/dL) 172 H 111 H (70-110) mg/dL Albumin/Globulin Ratio 1.34 L (1.60-3.17) Ratio Microbiology - Last 24 Hours (Table) 12/02/24 17:24 Blood Culture - Preliminary Blood 12/02/24 19:07 Gram Stain - Preliminary Ankle - Right
[2024-12-05 01:53] VITALS: RESP 16
[2024-12-05 01:53] LABS: Appearance,Urine Cloudy (Clear); Bacteria,Urine Rare /hpf; Bilirubin,Urine Negative (Negative); Blood,Urine Small (Negative); Color,Urine Yellow; Glucose,Urine (UA) Negative (Negative); Ketones,Urine Trace (Negative); Leukocyte Esterase,Urine Large (Negative); Nitrite,Urine Negative (Negative); Protein,Urine 1+ (Negative); RBC,Urine 19 /hpf (0-5); Specific Gravity,Urine 1.029 (1.001-1.035); Squamous Epithelial Cell,Urine 2 /hpf (0-4); Urobilinogen,Urine <2.0 mg/dL (<2.0); WBC,Urine 48 /hpf (0-5)
[2024-12-05] MEDS ORDERED: HYDROmorphone 0.5 MG/0.5 ML SYRINGE IVP PRN (07:00)
[2024-12-05 07:10] LABS: Glucose,Whole Blood 97 mg/dL (70-110)
[2024-12-05] MEDS: VANCOMYCIN TROUGH DUE 1 EACH MISC MISCELLANE ONE (08:00)
[2024-12-05 08:29] LABS: ALT 16 U/L (4-34); AST 25 U/L (14-36); African American GFR (CKD) >90 (>60 ml/min/1.73 sqM); Albumin 3.1 g/dL (3.5-5.0); Albumin/Globulin Ratio 1.1; Alkaline Phosphatase 91 U/L (38-126); Anion Gap 8 mmol/L; Blood Urea Nitrogen 11 mg/dL (7-17); Calcium 8.8 mg/dL (8.4-10.2); Carbon Dioxide 26 mmol/L (22-30); Chloride 100 mmol/L (98-107); Globulin 2.7 g/dL; Glucose 92 mg/dL (74-99); Non-African American GFR(CKD) >90 (>60 ml/min/1.73 sqM); Potassium 4.3 mmol/L (3.5-5.1); Sodium 134 mmol/L (137-145); Total Bilirubin 0.4 mg/dL (0.2-1.3); Total Protein 5.8 g/dL (6.3-8.2)
[2024-12-05 10:50] LABS: MCH 28.5 pg (27.0-32.0); MCHC 30.3 g/dL (32.0-37.0); Mean Platelet Volume 9.3 FL (9.5-12.2); NRBC Per 100 WBC 0 X 10*3/uL (0.00-0.01); Platelet Count 402 X 10*3/uL (140-440); RBC 3.51 X 10*6/uL (4.10-5.20); WBC 8.63 X 10*3/uL (4.50-10.00)
[2024-12-05 10:51] LABS: Basophils # (A) 0.01 X 10*3/uL (0.00-0.10); Basophils % (A) 0.1 %; Eosinophils # (A) 0.21 X 10*3/uL (0.04-0.35); Eosinophils % (A) 2.4 %; Lymphocytes # (A) 1.21 X 10*3/uL (0.90-5.00); Neutrophils # (A) 6.56 X 10*3/uL (1.80-7.70)
[2024-12-05 12:03] LABS: Glucose,Whole Blood 122 mg/dL (70-110)
--- NOTE | 2024-12-05 15:15 | P.PN ---
Subjective Progress Note Date: 12/05/24 Principal diagnosis: Reason for follow-up is right ankle wound and cellulitis Patient is a 54-year-old female with a past medical history of again for diabetes mellitus hypertension hyperlipidemia reflux with a recent injury with right ankle fracture admitted to hospital with worsening pain swelling redness concerning for infection. On today's evaluation that is 12/05/2024,the patient remains to be afebrile, patient is on 2 L supplemental oxygen and denies any shortness of breath no chest pain or cough.Patient denies having any nausea or vomiting, no abdominal p ain and no diarrhea still coming of significant pain to the right ankle area from the fixator. Patient white count is 8.60, creatinine 0.53 Vanco 22.3 local culture with staph epi. Objective - Vital Signs Vital signs: Vital Signs Temp 98.2 F 12/05/24 11:46 Pulse 72 12/05/24 11:46 Resp 16 12/05/24 11:46 BP 146/81 12/05/24 11:46 Pulse Ox 99 12/05/24 11:46 FiO2 Intake & Output 12/04/24 12/05/24 12/05/24 18:59 06:59 18:59 Intake Total 1794 240 Output Total 100 200 Balance 1694 -200 240 Intake: IV 1601 Oral 193 240 Output: Urine 200 Estimated Blood Loss 100 Other: Voiding Method External Catheter Diaper External Catheter # Voids 1 - Exam GENERAL DESCRIPTION: Middle-age female lying in bed in no distress RESPIRATORY SYSTEM: Unlabored breathing , decreased breath sounds at bases HEART: S1 S2 regular rate and rhythm , ABDOMEN: Soft , no tenderness EXTREMITIES: Right ankle with a wound surrounding swelling minimal redness - Labs CBC & Chem 7: 12/05/24 07:41 12/05/24 07:41 Labs: Abnormal Lab Results - Last 24 Hours (Table) 12/04/24 12/05/24 12/05/24 Range/Units 20:31 01: 07:41 RBC (4.10-5.20) X 10*6/uL Hgb (12.0-15.0) g/dL Hct (37.2-46.3) % MCHC (32.0-37.0) g/dL MPV (9.5-12.2) FL Sodium 134 L (137-145) mmol/L POC Glucose (mg/dL) 128 H (70-110) mg/dL Total Protein 5.8 L (6.3-8.2) g/dL Albumin 3.1 L (3.5-5.0) g/dL Urine Appearance Cloudy H (Clear) Urine Protein 1+ H (Negative) Urine Ketones Trace H (Negative) Urine Blood Small H (Negative) Ur Leukocyte Esterase Large H (Negative) Urine RBC 19 H (0-5) /hpf Urine WBC 48 H (0-5) /hpf Urine Bacteria Rare H (None) /hpf 12/05/24 12/05/24 Range/Units 07:41 12:02 RBC 3.51 L (4.10-5.20) X 10*6/uL Hgb 10.0 L (12.0-15.0) g/dL Hct 33.0 L (37.2-46.3) % MCHC 30.3 L (32.0-37.0) g/dL MPV 9.3 L (9.5-12.2) FL Sodium (137-145) mmol/L POC Glucose (mg/dL) 122 H (70-110) mg/dL Total Protein (6.3-8.2) g/dL Albumin (3.5-5.0) g/dL Urine Appearance (Clear) Urine Protein (Negative) Urine Ketones (Negative) Urine Blood (Negative) Ur Leukocyte Esterase (Negative) Urine RBC (0-5) /hpf Urine WBC (0-5) /hpf Urine Bacteria (None) /hpf Microbiology - Last 24 Hours (Table) 12/02/24 17:24 Blood Culture - Preliminary Blood 12/02/24 19:07 Gram Stain - Final Ankle - Right Wound Culture - Final Staph pseudointermedius Staphylococcus schleiferi Assessment and Plan (1) Cellulitis of right ankle Current Visit: Yes Status: Acute Code(s): L03.115 - CELLULITIS OF RIGHT LOWER LIMB SNOMED Code(s): 53991853891383059 (2) Ankle ulcer Current Visit: Yes Status: Acute Code(s): L97.309 - NON-PRESSURE CHRONIC ULCER OF UNSP ANKLE WITH UNSP SEVERITY SNOMED Code(s): 681881040 Plan: 1patient presented to hospital with increasing pain swelling redness and drainage to right ankle area in this patient who recently did have right ankle nondisplaced fracture now with a worsening swelling redness concerning for cellulitis and CT has been suggestive of posterior dislocation of the foot and the patient status post operative repair with External fixator completed on 12/04/2024 2-patient local culture growing oxacillin resistant staph epi, patient will be treated with the vancomycin and discontinue Unasyn Dictation was produced using [email or web address] dictation software. please excuse any grammatical, word or spelling errors. Time with Patient: Less than 30
[2024-12-05 17:17] LABS: Glucose,Whole Blood 135 mg/dL (70-110)
[2024-12-05 20:39] LABS: Glucose,Whole Blood 195 mg/dL (70-110)
[2024-12-05] MEDS: VANCOMYCIN 2,000 MG in SODIUM CHLORIDE 0.9% 500 ML 500 ML IVPB SCH (23:14)
[2024-12-06 06:15] LABS: Gardnerella Positive (Negative); Trichomonas Negative (Negative)
--- NOTE | 2024-12-06 06:18 | P.PN ---
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 Presents because of her right ankle fracture. Patient had fracture about 2 weeks ago when she fell. She has a hard cast. Recently was noticed that becoming more red and more painful for her therefore she decided to come to em ergency room Patient pain was controlled currently She denies chest pain or dyspnea. No specific GI symptoms like no abdominal pain vomiting or diarrhea. Patient complaining from some dysuria No headache dizziness weakness or numbness. She denies smoking alcohol or illicit drugs. On admission patient was afebrile and hemodynamically stable She had mild leukocytosis of 12.9 and sodium 131. Rest of labs including CBC, BMP and LFT and INR were unremarkable CT of the ankle showing posterior lateral dislocation of the foot with comminuted intra-articular fracture of the tibia and fibula. No fluid collection 12/04/2024 Patient is seen and evaluated in follow-up today with multiple consultations following including oncology, infectious disease, and podiatry surgeon Dr. Mike. Patient is currently n.p.o. for internal fixation of the right ankle today and will await official report. Patient being maintained on antibiotics and continued wound care with infectious disease following and will continue current regimen for now. Oncology following with significant history of melanoma reporting vaginal discomfort and foul-smelling discharge. Cultures being obtained and pending at this time. Patient is afebrile with no reports of chest pain or shortness of breath. 12/05/2024 Patient is seen in follow-up today status post fixation of the right ankle fracture with Dr. Mike. Infectious disease following as well and culture showing staph epi and will continue with vancomycin, Unasyn being discontinued and continued with local wound care. Patient continues to have vaginal discharge and per nursing staff attempting to obtain cultures per oncology orders in the discharges noted to be black in color with concerns of progression of malignancy. Patient is afebrile with no reported chest pain. Patient is continued on oxygen and reports does not wear it at home. Recommend incentive spirometer and weaning FiO2 as tolerated. Will await recommendations with restrictions per orthopedics for patient to work with PT/OT therapy. Review of systems: Constitutional: No reports of fatigue, fever, or chills Cardiovascular: No reports of chest pain or palpitations Respiratory: No reports of shortness of breath or cough GI: No reports of nausea, vomiting, or diarrhea : No reports of dysuria or retention Neurovascular: reports of generalized weakness and continued right ankle disc omfort All medications have been reviewed Physical exam: GENERAL: The patient is alert and oriented x3, not in any acute distress. Well developed, well nourished. Appears older than stated age, morbidly obese HEENT: Pupils are round and equally reacting to light. EOMI. No scleral icterus. No conjunctival pallor. Normocephalic, atraumatic. No pharyngeal erythema. No thyromegaly. CARDIOVASCULAR: S1 and S2 present. No murmurs, rubs, or gallops. PULMONARY: Diminished breath sounds bilaterally otherwise chest is clear to auscultation, no wheezing , no crackles. ABDOMEN: Soft, obese, nontender, nondistended, normoactive bowel sounds. No palpable organomegaly. MUSCULOSKELETAL: No joint swelling or deformity. EXTREMITIES: No cyanosis, clubbing, or pedal edema. Right ankle fracture on sow rd cast in place, rest of exam is deferred to surgery team NEUROLOGICAL: Gross neurological examination did not reveal any focal deficits. SKIN: No rashes. no petechiae. Assessment: Right ankle fracture with comminuted intra-articular fracture of the tibia and fibula, status post fixation with Dr. 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 Zay Mike following and patient is status post internal fixation of the right ankle. Will await official surgical report with recommendations Recommend PT/OT evaluate with restrictions per orthopedics. Patient reports she wants to go home on discharge and social work following Awaiting cultures to discuss further with infectious disease regarding antibiotics need on discharge Oncology following as well as patient continues to have vaginal discharge with history of malignancy and cultures obtained and pending and per nursing staff noted to be follow and black in nature The impression and plan of care has been dictated by Roselyn Rod, Nurse Practitioner as directed. Dr. Randy MD I have performed a history and examination and MDM of this patient, discussed the same with the dictator, and agree with the dictator's assessment and plan as written ,documented as a scribe. Based on total visit time, I have performed more than 50% of the visit. Objective - Vital Signs Vital signs: Vital Signs Temp 97.8 F 12/05/24 07:07 Pulse 77 12/05/24 07:07 Resp 16 12/05/24 07:07 BP 103/64 12/05/24 07:07 Pulse Ox 97 12/05/24 07:07 FiO2 Intake & Output 12/04/24 12/05/24 12/05/24 18:59 06:59 18:59 Intake Total 1794 240 Output Total 100 200 Balance 1694 -200 240 Intake: IV 1601 Oral 193 240 Output: Urine 200 Estimated Blood Loss 100 Other: Voiding Method External Catheter # Voids 1 - Labs CBC & Chem 7: 12/05/24 07:41 12/05/24 07:41 Labs: Abnormal Lab Results - Last 24 Hours (Table) 12/04/24 12/04/24 12/05/24 Range/Units 12:03 20:31 01:15 Sodium (137-145) mmol/L POC Glucose (mg/dL) 125 H 128 H (70-110) mg/dL Total Protein (6.3-8.2) g/dL Albumin (3.5-5.0) g/dL Urine Appearance Cloudy H (Clear) Urine Protein 1+ H (Negative) Urine Ketones Trace H (Negative) Urine Blood Small H (Negative) Ur Leukocyte Esterase Large H (Negative) Urine RBC 19 H (0-5) /hpf Urine WBC 48 H (0-5) /hpf Urine Bacteria Rare H (None) /hpf 12/05/24 Range/Units 07:41 Sodium 134 L (137-145) mmol/L POC Glucose (mg/dL) (70-110) mg/dL Total Protein 5.8 L (6.3-8.2) g/dL Albumin 3.1 L (3.5-5.0) g/dL Urine Appearance (Clear) Urine Protein (Negative) Urine Ketones (Negative) Urine Blood (Negative) Ur Leukocyte Esterase (Negative) Urine RBC (0-5) /hpf Urine WBC (0-5) /hpf Urine Bacteria (None) /hpf Microbiology - Last 24 Hours (Table) 12/02/24 17:24 Blood Culture - Preliminary Blood 12/02/24 19:07 Gram Stain - Final Ankle - Right Wound Culture - Final Staph pseudointermedius Staphylococcus schleiferi
[2024-12-06 06:56] LABS: African American GFR (CKD) >90 (>60 ml/min/1.73 sqM); Anion Gap 6 mmol/L; Blood Urea Nitrogen 8 mg/dL (7-17); Carbon Dioxide 28 mmol/L (22-30); Chloride 99 mmol/L (98-107); Glucose 130 mg/dL (74-99); Non-African American GFR(CKD) >90 (>60 ml/min/1.73 sqM); Potassium 4.3 mmol/L (3.5-5.1); Sodium 133 mmol/L (137-145)
[2024-12-06 07:04] LABS: Glucose,Whole Blood 126 mg/dL (70-110)
[2024-12-06 08:31] LABS: Basophils # (A) 0.01 X 10*3/uL (0.00-0.10); Basophils % (A) 0.1 %; Eosinophils % (A) 2.1 %; HCT 29.5 % (37.2-46.3); HGB 9.3 g/dL (12.0-15.0); Lymphocytes # (A) 1.14 X 10*3/uL (0.90-5.00); Lymphocytes % (A) 12.2 %; MCH 28.5 pg (27.0-32.0); MCHC 31.5 g/dL (32.0-37.0); MCV 90.5 FL (80.0-97.0); Monocytes # (A) 0.55 X 10*3/uL (0.20-1.00); Monocytes % (A) 5.9 %; NRBC Per 100 WBC 0 X 10*3/uL (0.00-0.01); Neutrophils # (A) 7.38 X 10*3/uL (1.80-7.70); Neutrophils % (A) 79.2 %; Platelet Count 473 X 10*3/uL (140-440); RBC 3.26 X 10*6/uL (4.10-5.20); RDW 12.8 % (11.5-14.5); WBC 9.33 X 10*3/uL (4.50-10.00)
--- NOTE | 2024-12-06 12:20 | P.OP ---
Date of Procedure: 12/06/24 Description of Procedure: Date of Procedure: Preoperative Diagnosis: Need for long-term IV antibiotic access. Postoperative Diagnosis: Same. Procedure(s) Performed: Ultrasound-guided cannulation left basilic vein. Insertion of peripherally inserted central catheter under fluoroscopic guidance. Anesthesia: local (1% Xylocaine.) Surgeon: Sara Estimated Blood Loss (ml): 5 IV fluids (ml): 0 Urine output (ml): 0 Pathology: none sent Condition: stable Disposition: no change Indications for Procedure: Patient is a patient will require long-term IV antibiotics as an outpatient patient is offered a PICC line to allow for intravenous administration of antibiotics. Description of Procedure: Patient was brought to the special procedure suite. The left upper extremity sterilely prepped and draped in usual manner. Ultrasound was utilized to identify the basilic vein which was normally compressible free of visible thrombus. Permenant image was stored. 1% Xylocaine was utilized for local anesthesia tissues overlying the vein. Through this anesthetized area and with the aid of ultrasound a micropuncture needle was utilized to cannulate the vein. Once cannulated, Softip guidewire was advanced into the vein. The needle was withdrawn and a micropuncture sheath and dilator advanced over the guidewire. The guidewire was withdrawn and exchanged for the PICC guidewire and measured 53 cm to the cavoatrial junction. The catheter was cut to size and advanced into the cavoatrial junction without resistance. The sheath was peeled away. Blood was easily withdrawn through the catheter and the catheter was then flushed with heparinized saline solution and secured to the skin. Patient tolerated procedure well and was returned to their room in satisfactory and stable condition.
--- NOTE | 2024-12-06 12:34 | P.DS ---
Providers Date of admission: 12/02/24 19:53 Expected date of discharge: 12/06/24 Attending physician: Cathi García Consults: 12/02/24 19:42 Consult Physician Urgent Consulting Provider: Zay Mike Consult Reason/Comments: ankle fx Do you want consulting provider notified?: Yes 12/02/24 19:49 Consult Physician Routine Consulting Provider: Hermelindo Botello Consult Reason/Comments: oncological care Do you want consulting provider notified?: Yes Consult Physician Routine Consulting Provider: Anil Bowman Consult Reason/Comments: Ankle fracture with infection Do you want consulting provider notified?: Yes Primary care physician: Kayla Gandhi Hospital Course: Final diagnosis Right ankle fracture with comminuted intra-articular fracture of the tibia and fibula, status post internal fixation with Dr. 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 Patient will follow-up with Dr. Gandhi in the outpatient setting upon discharge. Patient is to continue with IV antibiotics in the form of vancomycin with pharmacy to dose along with oral Flagyl. Patient will continue vancomycin for minimum 2 weeks and be reevaluated by infectious disease along with orthopedic surgeon before deciding discontinuing antibiotics. Patient also to continue with oral Flagyl twice daily for 1 week. Patient to follow-up with orthopedic surgeon as well as infectious disease outpatient as scheduled. Patient will follow-up with oncology outpatient once discharged from [facility]. Total time taken is greater than 35 minutes. Hospital course This is a 54-year-old female who was recently admitted with right ankle pain and swelling and redness with concerns of surrounding cellulitis also found to have a comminuted intra-articular fracture of the tibia and fibula and is status post internal fixation with Dr. Zay Mike on 12/04/2024. Patient is to remain nonweightbearing and continue to elevate right lower extremity while at rest. Patient's cultures finalized with staph pseudo intermedius along with Staphylococcus and will receive a PICC line and continue on IV vancomycin for minimum 2 weeks per ID recommendations recommending outpatient follow-up in the next 7 to 10 days for reevaluation and determine if continued antibiotics is required. Patient also having vaginal discharge and vaginal culture showing Gardnerella vaginalis and was started on Flagyl and will continue with twice daily for oral administration for 1 week. Patient does have history of malignant melanoma with metastasis of the vagina and liver and follows with on cology outpatient. Patient is agreeable to no oncological care during ECF and will follow-up once discharged from [facility]. Patient has been cleared by consultations and given patient needs IV antibiotics and continued nonweightbearing, patient is agreeable to go to ECF. Patient has been accepted by [facility] and insurance authorization was obtained. Please refer to other consultation notes for further HPI. Currently no reports of chest pain, shortness of breath, or palpitations. Patient is afebrile. No reports of nausea or vomiting and patient is tolerating diet. Strongly encourage incentive spirometer use postsurgery at least 10 times every hour while awake. Patient will be discharged to [facility] on the [place]. Physical exam: Gen: This is a 54-year-old female who is awake, alert and oriented x 3, well- developed, appears older than stated age, morbidly obese HEENT: Head is atraumatic, normocephalic. Pupils equal, round. Sclerae is anicteric. NECK: Supple. No JVD. No lymphadenopathy. No thyromegaly. LUNGS: Diminished breath sounds bilaterally otherwise clear to auscultation. No wheezes or rhonchi. No intercostal retractions. HEART: Regular rate and rhythm. No murmur. ABDOMEN: Soft. Obese bowel sounds are present. No masses. No tenderness. EXTREMITIES: No pedal edema. No calf tenderness. Right lower extremity external device noted, nonweightbearing NEUROLOGICAL: Patient is awake, alert and oriented x3. Cranial nerves 2 through 12 are grossly intact. Diffusely weak Please refer to medication reconciliation sheet for a list of medications. The impression and plan of care has been dictated by Roselyn Rod, Nurse Practitioner as directed. Dr. Randy MD I have performed a history and examination and MDM of this patient, discussed the same with the dictator, and agree with the dictator's assessment and plan as written ,documented as a scribe. Based on total visit time, I have performed more than 50% of the visit. Patient Condition at Discharge: Fair Plan - Discharge Summary New Discharge Prescriptions: New Heparin Sodium,Porcine (1 ml) [Heparin Sodium] 5,000 unit SQ Q8HR each Atorvastatin [Lipitor] 20 mg PO HS tab HYDROcodone/APAP 5-325MG [[place] 5-325] 1 tab PO Q6HR PRN 3 Days #6 tab PRN Reason: Pain Acetaminophen Tab [Tylenol] 650 mg PO Q6HR PRN tab PRN Reason: Mild Pain Or Fever > 100.5 traMADol HCl [Ultram] 50 mg PO Q6H PRN #6 tab PRN Reason: Moderate Pain (Scale 4 To 6) Vancomycin 2,000 mg IVPB Q12H 14 Days #42 each Ondansetron Odt [Zofran Odt] 4 mg PO Q6H PRN #6 tab PRN Reason: Nausea metroNIDAZOLE [Flagyl] 500 mg PO BID 7 Days #14 tab Continue gemfibroziL [Lopid] 600 mg PO DAILY Albuterol Sulfate [Proventil Hfa] 2 puff INHALATION RT-Q6H PRN PRN Reason: Shortness Of Breath Pantoprazole Sodium [Protonix] 40 mg PO DAILY Metoprolol Succinate (ER) [Toprol XL] 50 mg PO DAILY Spironolactone 25 mg PO DAILY Gabapentin 1,200 mg PO BID dilTIAZem HCL [dilTIAZem HCL 24Hr ER (CD)] 120 mg PO DAILY buPROPion XL [Wellbutrin XL] 150 mg PO DAILY Discontinued Rosuvastatin [Crestor] 10 mg PO HS Insulin Glargine/Lixisenatide [[place] 100 Unit-33 Mcg/ml Pen] 60 units SQ [id number] Losartan [Cozaar] 50 mg PO DAILY Discharge Medication List Albuterol Sulfate [Proventil Hfa] 2 puff INHALATION RT-Q6H PRN 07/19/17 [History] Pantoprazole Sodium [Protonix] 40 mg PO DAILY 07/19/17 [History] gemfibroziL [Lopid] 600 mg PO DAILY 07/19/17 [History] Metoprolol Succinate (ER) [Toprol XL] 50 mg PO DAILY 11/22/23 [History] Spironolactone 25 mg PO DAILY 11/22/23 [History] buPROPion XL [Wellbutrin XL] 150 mg PO DAILY 11/22/23 [History] dilTIAZem HCL [dilTIAZem HCL 24Hr ER (CD)] 120 mg PO DAILY 11/22/23 [History] Gabapentin 1,200 mg PO BID 12/02/24 [History] Acetaminophen Tab [Tylenol] 650 mg PO Q6HR PRN tab 12/06/24 [Rx] Atorvastatin [Lipitor] 20 mg PO HS tab 12/06/24 [Rx] HYDROcodone/APAP 5-325MG [[place] 5-325] 1 tab PO Q6HR PRN 3 Days #6 tab 12/06/24 [Rx] Heparin Sodium,Porcine (1 ml) [Heparin Sodium] 5,000 unit SQ Q8HR each 12/06/24 [Rx] Ondansetron Odt [Zofran Odt] 4 mg PO Q6H PRN #6 tab 12/06/24 [Rx] Vancomycin 2,000 mg IVPB Q12H 14 Days #42 each 12/06/24 [Rx] metroNIDAZOLE [Flagyl] 500 mg PO BID 7 Days #14 tab 12/06/24 [Rx] traMADol HCl [Ultram] 50 mg PO Q6H PRN #6 tab 12/06/24 [Rx] Follow up Appointment(s)/Referral(s): Hermelindo Botello [STAFF PHYSICIAN] - 4 Weeks (Patient to follow-up with oncology once cleared and discharged from [facility]) Zay Mike DPM [Doctor of Osteopathic Medicine] - 1 Week Kayla Gandhi DO [Primary Care Provider] - 1-2 days Anil Bowman MD [STAFF PHYSICIAN] - 1 Week Activity/Diet/Wound Care/Special Instructions: Patient is going to [facility] on [address] Activity as tolerated with orthopedic restrictions Continue on IV antibiotics in the form of vancomycin with a PICC line that has been placed per ID recommendations with pharmacy to dose Follow-up with orthopedic surgeon Dr. Mike outpatient in 1 week to 10 days Continue oral Flagyl twice daily for the next 1 week Continue to keep right lower extremity elevated when at rest Continue incentive spirometer use at least 10 times every hour while awake Patient is to remain nonweightbearing of that right leg Continue with Accu-Cheks before meals and at bedtime Continue consistent carb diet Discharge Disposition: TRANSFER TO SNF/ECF
--- NOTE | 2024-12-06 12:44 | IR ---
EXAMINATION TYPE: IR CVC inserted >=5 years DATE OF EXAM: 12/06/2024 COMPARISON: Pre Operative Images if available both CT/MRI or plain film CLINICAL INDICATION: Female, 54 years old with history of ABX 53 cm TECHNIQUE: IR CVC inserted >=5 years, multiple fluoroscopic images provided for procedure. Total fluoroscopy time: 0.8 minutes Total submitted images to PACS: 10 DAP: [id number] FINDINGS: Left subclavian approach central venous catheter placement. IMPRESSION: 1. Report was generated for administrative purposes only. 2. Please see the operative/procedural note for further details. [facility], , 12/06/2024 12:42 PM
[2024-12-06] MEDS: metroNIDAZOLE 500 MG TAB PO SCH (12:45)
[2024-12-06 12:58] LABS: Glucose,Whole Blood 155 mg/dL (70-110)
[2024-12-06 13:08] VITALS: BP 151/84; PULSE 79; TEMP 98.4
[2024-12-06 19:50] LABS: % Iron Saturation 4.92 (12.00-45.00); Ferritin 73.9 ng/mL (10.0-291.0)
--- NOTE | 2024-12-07 15:19 | P.PN ---
Subjective Progress Note Date: 12/06/24 Principal diagnosis: Reason for follow-up is right ankle wound and cellulitis Patient is a 54-year-old female with a past medical history of again for diabetes mellitus hypertension hyperlipidemia reflux with a recent injury with right ankle fracture admitted to hospital with worsening pain swelling redness concerning for infection. On today's evaluation that is 12/06/2024, the patient continues to be afebrile, the patient is on room air and breathing comfortably, the Pt denies having any chest pain or cough, the patient denies having any abdominal pain no vomiting or any diarrhea has been reported by the nursing staff, pain to the right ankle area is currently controlled. Patient white count is 9.33, creatinine 0.60 blood culture has been negative Objective - Vital Signs Vital signs: Vital Signs Temp 97.9 F 12/06/24 07:00 Pulse 77 12/06/24 07:00 Resp 16 12/06/24 07:00 BP 151/78 12/06/24 07:00 Pulse Ox 95 12/06/24 07:00 FiO2 Intake & Output 12/05/24 12/06/24 12/06/24 18:59 06:59 18:59 Intake Total 2580 480 Output Total 1300 1000 Balance 1280 -1000 480 Intake: Oral 2580 480 Output: Urine 1300 1000 Other: Voiding Method Diaper External Catheter External Catheter - Exam GENERAL DESCRIPTION: Middle-age female lying in bed in no distress RESPIRATORY SYSTEM: Unlabored breathing , decreased breath sounds at bases HEART: S1 S2 regular rate and rhythm , ABDOMEN: Soft , no tenderness EXTREMITIES: Right ankle with external fixator - Labs CBC & Chem 7: 12/06/24 06:02 12/06/24 06:02 Labs: Abnormal Lab Results - Last 24 Hours (Table) 12/05/24 12/05/24 12/05/24 Range/Units 07:41 12:02 14:12 RBC 3.51 L (4.10-5.20) X 10*6/uL Hgb 10.0 L (12.0-15.0) g/dL Hct 33.0 L (37.2-46.3) % MCHC 30.3 L (32.0-37.0) g/dL Plt Count (140-440) X 10*3/uL MPV 9.3 L (9.5-12.2) FL Immature Gran # (0.00-0.04) X 10*3/uL Sodium (137-145) mmol/L Glucose (74-99) mg/dL POC Glucose (mg/dL) 122 H (70-110) mg/dL Gardnerella DNA Probe Positive A (Negative) 12/05/24 12/05/24 12/06/24 Range/Units 17:15 20:33 06:02 RBC (4.10-5.20) X 10*6/uL Hgb (12.0-15.0) g/dL Hct (37.2-46.3) % MCHC (32.0-37.0) g/dL Plt Count (140-440) X 10*3/uL MPV (9.5-12.2) FL Immature Gran # (0.00-0.04) X 10*3/uL Sodium 133 L (137-145) mmol/L Glucose 130 H (74-99) mg/dL POC Glucose (mg/dL) 135 H 195 H (70-110) mg/dL Gardnerella DNA Probe (Negative) 12/06/24 12/06/24 Range/Units 06:02 07:03 RBC 3.26 L (4.10-5.20) X 10*6/uL Hgb 9.3 L (12.0-15.0) g/dL Hct 29.5 L (37.2-46.3) % MCHC 31.5 L (32.0-37.0) g/dL Plt Count 473 H (140-440) X 10*3/uL MPV (9.5-12.2) FL Immature Gran # 0.05 H (0.00-0.04) X 10*3/uL Sodium (137-145) mmol/L Glucose (74-99) mg/dL POC Glucose (mg/dL) 126 H (70-110) mg/dL Gardnerella DNA Probe (Negative) Microbiology - Last 24 Hours (Table) 12/05/24 01:15 Urine Culture - Final Urine,Voided 12/02/24 17:24 Blood Culture - Preliminary Blood Assessment and Plan (1) Cellulitis of right ankle Status: Acute Code(s): L03.115 - CELLULITIS OF RIGHT LOWER LIMB SNOMED Code(s): 36344624562962270 (2) Ankle ulcer Status: Acute Code(s): L97.309 - NON-PRESSURE CHRONIC ULCER OF UNSP ANKLE WITH UNSP SEVERITY SNOMED Code(s): 596854596 Plan: 1patient presented to hospital with increasing pain swelling redness and drainage to right ankle area in this patient who recently did have right ankle nondisplaced fracture now with a worsening swelling redness concerning for cellulitis and CT has been suggestive of posterior dislocation of the foot and the patient status post operative repair with External fixator completed on 12/04/2024 2-patient local culture growing oxacillin resistant staph epi, patient with re cent ankle fracture repair with external fixator will consider 2-week course of IV vancomycin on discharge and close outpatient follow-up discussed with [employer]OLOGIST for admitting team working on discharge Dictation was produced using [employer] dictation software. please excuse any grammatical, word or spelling errors.
[2024-12-08] MEDS ORDERED: VANCOMYCIN TROUGH DUE 1 EACH MISC MISCELLANE ONE (10:00)
== END 2024-12-06 15:37 | DRG 493 ==
LOC: EC 16:24 → 5NMEDONC 19:53
PROVIDERS: ADMIT Hospitalist; ATTEND Hospitalist
PROC: 0QSJ35Z Reposition Right Fibula with External Fixation Device, Percutaneous Approach (ICD-10-PCS; principal; 2024-12-04 14:00)
PROC: 02HV33Z Insertion of Infusion Device into Superior Vena Cava, Percutaneous Approach (ICD-10-PCS; 2024-12-06)
DX: S82.841A Displaced bimalleolar fracture of right lower leg, initial encounter for closed fracture (principal); C78.7 Secondary malignant neoplasm of liver and intrahepatic bile duct; C52 Malignant neoplasm of vagina; Z68.43 Body mass index [BMI] 50.0-59.9, adult; E11.40 Type 2 diabetes mellitus with diabetic neuropathy, unspecified; L03.115 Cellulitis of right lower limb; L97.309 Non-pressure chronic ulcer of unspecified ankle with unspecified severity; E66.01 Morbid (severe) obesity due to excess calories; M19.90 Unspecified osteoarthritis, unspecified site; E78.5 Hyperlipidemia, unspecified; Z86.14 Personal history of Methicillin resistant Staphylococcus aureus infection; Z79.4 Long term (current) use of insulin; Z87.891 Personal history of nicotine dependence; Z79.899 Other long term (current) drug therapy
CPT/HCPCS: 36415; 36573; 80048; 80053; 80202; 81001; 82565; 82607; 82728; 83036; 83540; 83550; 83605; 85025; 85610; 85730; 87040; 87070; 87077; 87086; 87102; 87186; 87205; 87480; 87510; 87660; 93005; 96361; 96365; 96366; 96367; 96375; 96376; 99285

== ENCOUNTER 2025-01-03 08:55 | Day surgery (SDC) | payer BC ==
[2024-12-24 16:19] VITALS: BMI 53.1
[~2025-01-03 08:55] MED LIST changes: -DEXAMETHASONE SOD PHOSPHATE 10 MG/ML 1 ML VIAL IV ONE; -HEPARIN SODIUM,PORCINE 5,000 UNIT/ML 1 ML VIAL SQ ONE; -LACTATED RINGERS 1,000 ML IV SCH; -LIDOCAINE 1% 20 ML VIAL (10MG/ML) FOR IV START INTRADERMA PRN; -ONDANSETRON 4 MG/2 ML VIAL IVP ONE; +SCOPOLAMINE 1 MG/72 HR PATCH TRANSDERM ONE; -ceFAZolin IN SWFI 2 GM/20 ML SYRINGE IVP ONE
[2025-01-03 09:46] LABS: Glucose,Whole Blood 119 mg/dL (70-110)
[2025-01-03] MEDS: LACTATED RINGERS 1,000 ML IV SCH (10:07)
[2025-01-03] MEDS: IV FLUID CONTINUATION 1,000 ML IV ONE (10:16)
[2025-01-03] MEDS: ONDANSETRON 4 MG/2 ML VIAL IVP ONE (10:19)
[2025-01-03] MEDS: DEXAMETHASONE SOD PHOSPHATE 4 MG/ML 1 ML VIAL IV ONE (10:19)
[2025-01-03] MEDS: MIDAZOLAM 2 MG/2 ML VIAL IVP ONE (10:20)
[2025-01-03] MEDS: FAMOTIDINE 20 MG/2 ML VIAL IV STA (10:52)
[2025-01-03] MEDS: IPRATROPIUM-ALBUTEROL 3 ML NEB INHALATION STA (10:53)
[2025-01-03] MEDS ORDERED: WATER FOR INJECTION, STERILE 10 ML VIAL IV ONE (11:49)
[2025-01-03] MEDS ORDERED: ePHEDrine 50 MG/ML 1 ML VIAL ONE (11:49)
[2025-01-03] MEDS ORDERED: PHENYLEPHRINE-0.9% NACL SYG 1,000 MCG/10 ML SYRINGE ONE (11:49)
[2025-01-03] MEDS ORDERED: SUCCINYLCHOLINE CHLORIDE 200 MG/10 ML VIAL IV ONE (11:49)
[2025-01-03] MEDS ORDERED: LIDOCAINE 1% INJ 10MG/ML (20 ML MDV) ONE (11:49)
[2025-01-03] MEDS ORDERED: PROPOFOL 10 MG/ML 20 ML VIAL IV ONE (11:49)
[2025-01-03] MEDS ORDERED: ROPIVACAINE 5 MG/ML 30 ML VIAL ONE (11:49)
[2025-01-03] MEDS ORDERED: KETAMINE HCL IN 0.9 % NACL 50 MG/5 ML SYRINGE ONE (11:49)
[2025-01-03] MEDS ORDERED: GLYCOPYRROLATE 0.2 MG/ML 2 ML VIAL ONE (11:49)
[2025-01-03] MEDS ORDERED: fentaNYL (PF) 50 MCG/ML 2 ML AMP ONE (11:49)
[2025-01-03] MEDS ORDERED: DEXAMETHASONE SOD PHOSPHATE 4 MG/ML 1 ML VIAL ONE (11:49)
[2025-01-03] MEDS ORDERED: diphenhydrAMINE 50 MG/ML 1 ML VIAL ONE (11:49)
[2025-01-03] MEDS ORDERED: NEOSTIGMINE 1 MG/ML 10 ML VIAL ONE (11:49)
[2025-01-03] MEDS ORDERED: ALBUTEROL HFA INHALER INHALATION ONE (11:49)
[2025-01-03] MEDS ORDERED: ROCURONIUM 10 MG/ML (5 ML VIAL) IV ONE (11:49)
[2025-01-03] MEDS: ceFAZolin 1,000 MG in SODIUM CHLORIDE 0.9% 1,000 ML IRRIGATION ONE (11:53)
[2025-01-03] MEDS: ceFAZolin 3 GM in SODIUM CHLORIDE 0.9% 100 ML IVPB PRN (11:53)
[2025-01-03] MEDS: HEPARIN SODIUM 1,000 UN/ML (10ML VL) MISCELLANE ONE (12:41)
--- NOTE | 2025-01-03 12:51 | P.ANPRN ---
Procedure Note - Anesthesia - Nerve Block Performed Right Popliteal Single Time Out Performed: Yes Date of Procedure: 01/03/25 Procedure Start Time: : Procedure Stop Time: Location of Patient: PreOp Indication: Acute Post-Operative Pain, Analgesia, Requested by Surgeon Sedation Type: Sedate with meaningful contact maintained Preparation: Sterile Prep Position: Left Lateral Catheter: None Needle Types: Pajunk Needle Gauge: 21 Ultrasound used to visualize needle placement: Yes Ultrasound used to observe medication spread: Yes Injectate: 0.5% Ropivacaine (see comment for volume) (Ropiv 20ml+[id number]) Blood Aspirated: No Pain Paresthesia on Injection Noted: No Resistance on Injection: Normal Image Stored and Saved: Yes Events: Uneventful and Well Tolerated
--- NOTE | 2025-01-03 12:53 | P.ANPRN ---
Procedure Note - Anesthesia - Nerve Block Performed Right Adductor Canal Single Time Out Performed: Yes Date of Procedure: 01/03/25 Procedure Start Time: Procedure Stop Time: Location of Patient: PreOp Indication: Acute Post-Operative Pain, Analgesia, Requested by Surgeon Sedation Type: Sedate with meaningful contact maintained Preparation: Sterile Prep Position: Supine Catheter: None Needle Types: Pajunk Needle Gauge: 21 Ultrasound used to visualize needle placement: Yes Ultrasound used to observe medication spread: Yes Injectate: 0.5% Ropivacaine (see comment for volume) (Ropiv 20ml+[id number]) Blood Aspirated: No Pain Paresthesia on Injection Noted: No Resistance on Injection: Normal Image Stored and Saved: Yes Events: Uneventful and Well Tolerated
[2025-01-03 15:04] VITALS: TEMP 98.6
--- NOTE | 2025-01-03 15:08 | P.OP ---
Date of Procedure: 01/03/25 Preoperative Diagnosis: 1. Right ankle fracture dislocation 2. Retained external fixator right ankle Postoperative Diagnosis: 1. Same 2. Same Procedure(s) Performed: 1. Tibial talocalcaneal arthrodesis right 2. Removal of external fixator right ankle 3. Aspiration of bone marrow Implants: 11.5 mm x 210 mm Arthrex tibial talocalcaneal arthrodesis nail 10 cc allosync pure Anesthesia: DELIA Surgeon: Zay Mike Estimated Blood Loss (ml): 130 Pathology: none sent Condition: stable Disposition: PACU Description of Procedure: Prior to the patient being brought to the op room, anesthesia administered a nerve block on the right lower extremity. The patient was brought into the op room placed on table supine position. Timeout was taken to confirm correct patient identifiers, correct laterality of surgery, and correct procedure. Once all staff in the room was in agreement with the timeout the patient was induced and placed under general anesthesia. A well-padded tourniquet was placed on the right ankle. Prior to prepping the skin, the frame of the external fixator was removed leaving the osseous pins in place. Once that was removed the leg was prepped in the usual manner. The leg was exsanguinated and the tourniquet inflated to 250 mmHg. A drill was used to remove all the osseous pins. Then a trocar and cannula was inserted in the distal medial tibia proximal to the ankle joint. The bone marrow aspirate was removed and passed off the field for centrifuge and concentration down to BMAC. Attention is directed to the lateral ankle where an incision was made over the lateral malleolus and extending over the calcaneus for access to the subtalar joint. The incision was deepened down to the subcutaneous tissue careful to identify, void, and retracting neurovascular structures and cauterize any bleeding vessels. Dissection was carried down to the lateral malleolus. The soft tissue was sharply dissected off the anterior and posterior aspects of the lateral malleolus. The fracture was identified and an osteotome was inserted and the fracture to separate it. Then continuous dissection of the lateral malleolus was done until it was freed and removed for exposure of the ankle and subtalar joints. The ankle joint was distracted and the large joint prep bur was used to remove the articular cartilage from the dome of the talus as well as the articular surface of the distal tibia. It was noted that there was sign ificant compression of the lateral articular surface of the tibia which was not noted on the x-rays. But it. did explain the continuous valgus deformity of the ankle. The rotary bur was used to remove more the articular cartilage of bone medially to allow for correction of the valgus deformity. Then the subtalar joint was exposed. An osteotome was used to remove the articular cartilage and then a rotary bur was used to remove the subchondral bone down to bleeding cancellous bone. Once the joint prep was complete both surfaces were aggressively fenestrated with a large wire to pleural bleeding. Fluoroscopy was used to make sure that the alignment would be acceptable on AP and lateral views. Once that was acceptable and a guidepin was placed on the plantar surface of the calcaneus just lateral to the midline. The ankle was held in reduction and the pin was advanced to the calcaneus into the talus but just distal to the ankle joint. AP and lateral views confirmed the proper trajectory of the wire so then the wire was then further advanced across the ankle joint into the shaft of the tibia. Final fluoroscopic imaging showed correct alignment of the ankle joint as well as proper placement of wire. At that point the joint surfaces were distracted along the wire and then packed with the bone graft as well as the BMAC at the fusion surfaces. Then the joints were recompressed along the guidewire. An incision was made vertically on the plantar surface of the heel at the entry point of the guidewire. The drill guide was placed over the wire and then peripheral wires were placed to the guide to lock the reduction in place as well as hold the drill guide in place. A large reamer was used and taken down to the appropriate depth. Sequential reaming of the tibia was then performed starting at 9 mm and advancing to 12.5 mm. At that point chatter was noted and an 11.5 mm nail would be appropriate. The reamers and wires were removed, the nail was placed on the insertion jig. The nail was inserted and impacted down to proper depth is confirmed under fluoroscopy. The jig was rotated to the posterior position. The drill guide was placed through the most distal posterior to anterior calcaneal screw slot. Drilling was taken past the nail into the anterior process of the calcaneus. The appropriate size screw was inserted and advanced until the head was buried in the calcaneus. Then the jig was rotated medially for the first tibial screw. The drill guide was inserted through the jig and placed against the skin on the medial side of the tibia. A small stab incision was made and then drilling was done from medial to lateral through the tibia and through the nail. Hole locking screw was then placed making sure that the screw was bicortical. Then the screwdriver was inserted at the end of the insertion jig and was turned to perform the compression through the nail. That was taken to its maximum stop. Next the jig was rotated laterally for the lateral to medial talar screw. Drilling was performed and then a cortical screw was inserted and advanced until it was through the medial cortex of the talus. Next the second posterior anterior calcaneal screw was placed proximal to the first utilizing similar technique as the first screw. At that point the construct was stable: there was no rotation of the ankle around the nail. Final fluoroscopic imaging showed a 90 degree alignment of the foot to the ankle. There was good bony contact throughout the joint surfaces. The jig was detached from the nail head and removed. All wounds were thoroughly irrigated with antibiotic saline. Deep closure on the lateral side of the ankle was done with 2-0 Vicryl. Subcutaneous closure was done with 3-0 Monocryl in all incisions. All incisions then closed with zena. Arthrex jumpstart and a bulky dry dressing applied to the ankle. The tourniquet was released and capillary refill returned all digits on the foot. A bulky Rice dressing was applied the leg. Well molded plaster posterior mold/sugar-tong splint was placed on the leg. Then anesthesia was reversed and the patient was taken recovery with vital signs stable.
--- NOTE | 2025-01-03 15:12 | FL ---
Fluoroscopy INDICATION: Pain FINDINGS: Fluoroscopy time: 1 minute 20 seconds. Total dose area product (DAP) in uGy*m?, mGy*cm? (or similar): 0.5167 Images obtained: 4. Images document arthrodesis of the ankle IMPRESSION: 1. Documentation of fluoroscopy. [facility], , 01/03/2025 3:10 PM
--- NOTE | 2025-01-03 15:32 | XR ---
Fluoroscopy INDICATION: Pain FINDINGS: Fluoroscopy time: 48.3 seconds. Total dose area product (DAP) in uGy*m?, mGy*cm? (or similar): 0.5167 Images obtained: 1. Images document the procedure. IMPRESSION: 1. Documentation of fluoroscopy. [facility], , 01/03/2025 3:29 PM
[2025-01-03 16:09] LABS: Glucose,Whole Blood 177 mg/dL (70-110)
[2025-01-03 16:56] VITALS: BP 105/59; PULSE 84; RESP 20
== END 2025-01-03 17:03 | disposition home or self-care (01) ==
LOC: OR 08:55
PROVIDERS: ATTEND Podiatrist
DX: S82.61XA Displaced fracture of lateral malleolus of right fibula, initial encounter for closed fracture (principal); Z47.2 Encounter for removal of internal fixation device; G89.18 Other acute postprocedural pain
CPT/HCPCS: 28725; 20680; 64447; 64445; 84703; 73610; C1713; J2250; J0330; J1200; J1100; J2710; J0690 ×2; J2405; J2003; J3010; J3490; J1644; J2795; J2704; J2371; J1596

== ENCOUNTER 2025-02-21 12:55 | Inpatient (IN) | payer BC ==
--- NOTE | 2025-02-21 13:35 | ED ---
Recheck HPI - General Chief Complaint: Recheck/Abnormal Lab/Rx Stated Complaint: back pain,weakness Time Seen by Provider: 02/21/25 13:17 Source: patient, family, RN notes reviewed Mode of arrival: wheelchair Limitations: no limitations - History of Present Illness Initial Comments: This is a 55-year-old female who presents to the emergency department for generalized weakness. 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 Currently follows with Dr. Botello. She gets once monthly dual infusions. She just had her third infusion. Her states that she had blood work done a couple of days ago and was told that there were multiple irregularities including problems with her kidney function and sodium and they were advised to come here for further evaluation. She is also having increasing pain at both the cancer site and in her back and they are worried that she could have an infection on top of the cancer. She does report some increasing shortness of breath. Denies any chest pain. Also states that she is not eating and has no appetite. She reports some nausea but no vomiting. MD Complaint: abnormal lab - Related Data Home Medications Medication Instructions Recorded Confirmed Pantoprazole Sodium [Protonix] 40 mg PO DAILY 07/19/17 02/21/25 gemfibroziL [Lopid] 600 mg PO DAILY 07/19/17 02/21/25 Metoprolol Succinate (ER) [Toprol 50 mg PO HS 11/22/23 02/21/25 XL] Spironolactone 25 mg PO DAILY 11/22/23 02/21/25 buPROPion XL [Wellbutrin XL] 150 mg PO DAILY 11/22/23 02/21/25 dilTIAZem HCL [dilTIAZem HCL 24Hr 120 mg PO HS 11/22/23 02/21/25 ER (CD)] Gabapentin 600 mg PO BID 12/02/24 02/21/25 Insulin Glargine/Lixisenatide 60 units SQ AC-BRKFST 12/24/24 02/21/25 [Soliqua 100 Unit-33 Mcg/ml Pen] Losartan [Cozaar] 50 mg PO DAILY 12/24/24 02/21/25 Sertraline [Zoloft] 50 mg PO HS 12/24/24 02/21/25 Gabapentin [Neurontin] 300 mg PO BID 02/21/25 02/21/25 Nystatin [Nystop] 1 applic TOPICAL TID PRN 02/21/25 02/21/25 Ondansetron [Zofran] 4 mg PO DAILY 02/21/25 02/21/25 Rosuvastatin [Crestor] 10 mg PO HS 02/21/25 02/21/25 metFORMIN HCL [Glucophage] 500 mg PO DAILY 02/21/25 02/21/25 Previous Rx's Medication Instructions Recorded Apixaban [Eliquis] 2.5 mg PO BID #60 tab 01/03/25 Allergies Allergy/AdvReac Type Severity Reaction Status Date / Time benazepril Allergy "throat Verified 02/21/25 15:31 closing" hydrocodone [From Vicodin] AdvReac Nausea & Verified 02/21/25 15:31 Vomiting Review of Systems ROS Statement: Those systems with pertinent positive or pertinent negative responses have been documented in the HPI. ROS Other: All systems not noted in ROS Statement are negative. Past Medical History Past Medical History: Cancer, Diabetes Mellitus, GERD/Reflux, Hyperlipidemia, Hypertension, Osteoarthritis (OA) Additional Past Medical History / Comment(s): SVT. ALLERGIES. NEUROPATHY IN FEET. 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 Past Psychological History: Depression Smoking Status: Former smoker Past Alcohol Use History: Occasional Past Drug Use History: None Reported - Past Family History Mother Family Medical History: Cancer, Deep Vein Thrombosis (DVT) Additional Family Medical History / Comment(s): RENAL CA Brother(s) Family Medical History: Deep Vein Thrombosis (DVT) General Exam Limitations: no limitations General appearance: alert, in no apparent distress Head exam: Present: atraumatic, normocephalic, normal inspection Respiratory exam: Present: rales, decreased breath sounds, prolonged expiratory Cardiovascular Exam: Present: regular rate, normal rhythm GI/Abdominal exam: Present: soft, tenderness (generalized). Absent: distended Neurological exam: Present: alert, oriented X3, CN II-XII intact Psychiatric exam: Present: normal affect, normal mood Course Vital Signs 02/21/25 02/21/25 13:08 14:46 Temperature 97.0 F L 97.8 F Pulse Rate 59 L 65 Respiratory 18 18 Rate Blood Pressure 106/68 121/58 O2 Sat by Pulse 91 L 100 Oximetry Medical Decision Making - Medical Decision Making This is a 55 year old female who presents to the emergency department for w tiana. Was pt. sent in by a medical professional or institution? @ -No Did you speak to anyone other than the patient for history? @ -No Did you review nursing and triage notes? @ -Yes, and I agree, it is accurate with regards to the patient's symptoms. Were old charts reviewed? @ -No Differential Diagnosis? @ -Differential Weakness: Hypoglycemia, shock, sepsis, hyponatremia, anemia, infection, OH, ETOH, adverse medicine reaction, overdose, stroke, this is not meant to be an all-inclusive list. EKG interpreted by me (3pts min.)? @ -EKG interpreted by me demonstrating the following: Sinus rhythm. Ventricular rate 62 bpm, WI interval 164 ms, QRS duration 118 ms, QTc 421 ms. She did have some abnormal nonspecific elevations which were reviewed with ED attending, Dr. Morrison. She is not experiencing any ACS type symptoms and her troponin is negative. X-rays interpreted by me (1pt min.)? @ -Chest x-ray obtained, my interpretation identifies no localized consolidations or infiltrates. CT interpreted by me (1pt min.)? @ -Not obtained U/S interpreted by me (1pt. min.)? @ -Pending What testing was considered but not performed? (CT, X-rays, U/S, labs)? Why? @ -None What meds were considered but not given? Why? @ -None Did you discuss the management of the patient with other professionals? @ -Yes, Dr. Wood, nephrology, who advised rechecking the sodium and they will determine fluid management from there. Dr. Simmons accepts the patient for admission. Did you reconcile home meds? @ -Yes Was smoking cessation discussed for >3mins.? @ -No Was critical care preformed (if so, how long)? @ -No Were there social determinants of health that impacted care today? How? (Homele ssness, low income, unemployed, alcoholism, drug addiction, transportation, low edu. Level, literacy, decrease access to med. care, custodial, rehab)? @ -No Was there de-escalation of care discussed even if they declined? (Discuss DNR or withdrawal of care, Hospice)? @ -No What co-morbidities impacted this encounter? (DM, HTN, Smoking, COPD, CAD, Canc er, CVA, Hep., AIDS, mental health diagnosis, sleep apnea, morbid obesity)? @ -Malignant melanoma, DM, HLD, HTN Was patient admitted / discharged? @ -Admitted. Lab work demonstrates leukocytosis with a white blood cell count of 26.75. She has fairly substantial hyponatremia with a sodium of 118 as well as new onset renal failure with a creatinine of 2.96 and eGFR of 17. COVID, influenza, and RSV testing negative. Urinalysis consistent with infection. U rine sent for culture. Chest x-ray reveals no localized consolidations. She had initially been given 500 mL of LR on arrival. Given the hyponatremia this was paused. Case discussed with Dr. Wood, nephrology. She advised rechecking the sodium at this point and they will determine how to proceed from there. Serum and urine osmolality were ordered. Blood culture obtained and 2 g of ceftriaxone were administered. Patient admitted to medicine for hyponatremia, LISSETTE, and UTI. Consult placed for nephrology, hem/onc, and infectious disease. Renal ultrasound ordered with results pending at the time of admission. Undiagnosed new problem with uncertain prognosis? @ -None Drug Therapy requiring intensive monitoring for toxicity (Heparin, Nitro, Insulin, Cardizem)? @ -None Were any procedures done? @ -None Diagnosis/symptom? @ -Hyponatremia, LISSETTE, UTI Acute, or Chronic, or Acute on Chronic? @ -Acute Uncomplicated (without systemic symptoms) or Complicated (systemic symptoms)? @ -Complicated Side effects of treatment? @ -None Exacerbation, Progression, or Severe Exacerbation] @ -Not applicable Poses a threat to life or bodily function? @ -Yes, can lead to - Lab Data Result diagrams: 02/21/25 13:49 02/21/25 13:49 Lab Results 02/21/25 02/21/25 02/21/25 Range/Units 13:47 13:49 13:49 WBC 26.75 H (4.50-10.00) 10*3/uL RBC 3.44 L (4.10-5.20) 10*6/uL Hgb 8.8 L (12.0-15.0) g/dL Hct 25.9 L (37.2-46.3) % MCV 75.3 L (80.0-97.0) fL MCH 25.6 L (27.0-32.0) pg MCHC 34.0 (32.0-37.0) g/dL Plt Count 634 H (140-440) 10*3/uL MPV 8.9 L (9.5-12.2) fL Immature Gran % (Auto) 3.9 % Neutrophils % 89.7 % Lymphocytes % 3.2 % Monocytes % 2.4 % Eosinophils % 0.6 % Basophils % 0.2 % Immature Gran # 1.03 H (0.00-0.04) 10*3/uL Neutrophils # 24.01 H (1.80-7.70) 10*3/uL Lymphocytes # 0.85 L (0.90-5.00) 10*3/uL Monocytes # 0.64 (0.20-1.00) 10*3/uL Eosinophils # 0.16 (0.04-0.35) 10*3/uL Basophils # 0.06 (0.00-0.10) 10*3/uL PT 11.5 (10.0-12.5) sec INR 1.0 (<1.2) APTT 29.3 (22.0-30.0) sec Sodium (137-145) mmol/L Potassium (3.5-5.1) mmol/L Chloride (98-107) mmol/L Carbon Dioxide (22-30) mmol/L Anion Gap mmol/L BUN (7-17) mg/dL Creatinine (0.52-1.04) mg/dL Est GFR (CKD-EPI)AfAm (>60 ml/min/1.73 sqM) Est GFR (CKD-EPI)NonAf (>60 ml/min/1.73 sqM) Glucose (74-99) mg/dL Plasma Lactic Acid Rex (0.7-2.0) mmol/L Calcium (8.4-10.2) mg/dL Phosphorus 5.8 H (2.5-4.5) mg/dL Magnesium (1.6-2.3) mg/dL Total Bilirubin (0.2-1.3) mg/dL AST (14-36) U/L ALT (4-34) U/L Alkaline Phosphatase (38-126) U/L Troponin I (0.000-0.034) ng/mL Total Protein (6.3-8.2) g/dL Albumin (3.5-5.0) g/dL Lipase (23-300) U/L Urine Color Urine Appearance (Clear) Urine pH (5.0-8.0) Ur Specific Alliance (1.001-1.035) Urine Protein (Negative) Urine Glucose (UA) (Negative) Urine Ketones (Negative) Urine Blood (Negative) Urine Nitrite (Negative) Urine Bilirubin (Negative) Urine Urobilinogen (<2.0) mg/dL Ur Leukocyte Esterase (Negative) Urine RBC (0-5) /hpf Urine WBC (0-5) /hpf Urine WBC Clumps (None) /hpf Ur Squamous Epith Cells (0-4) /hpf Urine Bacteria (None) /hpf Urine Mucus (None) /hpf Influenza Type A (PCR) (Not Detectd) Influenza Type B (PCR) (Not Detectd) RSV (PCR) (Not Detectd) SARS-CoV-2 (PCR) (Not Detectd) 02/21/25 02/21/25 02/21/25 Range/Units 13:49 13:49 13:49 WBC (4.50-10.00) 10*3/uL RBC (4.10-5.20) 10*6/uL Hgb (12.0-15.0) g/dL Hct (37.2-46.3) % MCV (80.0-97.0) fL MCH (27.0-32.0) pg MCHC (32.0-37.0) g/dL Plt Count (140-440) 10*3/uL MPV (9.5-12.2) fL Immature Gran % (Auto) % Neutrophils % % Lymphocytes % % Monocytes % % Eosinophils % % Basophils % % Immature Gran # (0.00-0.04) 10*3/uL Neutrophils # (1.80-7.70) 10*3/uL Lymphocytes # (0.90-5.00) 10*3/uL Monocytes # (0.20-1.00) 10*3/uL Eosinophils # (0.04-0.35) 10*3/uL Basophils # (0.00-0.10) 10*3/uL PT (10.0-12.5) sec INR (<1.2) APTT (22.0-30.0) sec Sodium 118 L* (137-145) mmol/L Potassium 4.1 (3.5-5.1) mmol/L Chloride 93 L (98-107) mmol/L Carbon Dioxide 10 L (22-30) mmol/L Anion Gap 15 mmol/L BUN 52 H (7-17) mg/dL Creatinine 2.96 H (0.52-1.04) mg/dL Est GFR (CKD-EPI)AfAm 20 (>60 ml/min/1.73 sqM) Est GFR (CKD-EPI)NonAf 17 (>60 ml/min/1.73 sqM) Glucose 103 H (74-99) mg/dL Plasma Lactic Acid Rex 1.1 (0.7-2.0) mmol/L Calcium 9.0 (8.4-10.2) mg/dL Phosphorus (2.5-4.5) mg/dL Magnesium 2.0 (1.6-2.3) mg/dL Total Bilirubin 0.6 (0.2-1.3) mg/dL AST 24 (14-36) U/L ALT 11 (4-34) U/L Alkaline Phosphatase 241 H (38-126) U/L Troponin I (0.000-0.034) ng/mL Total Protein 7.1 (6.3-8.2) g/dL Albumin 3.2 L (3.5-5.0) g/dL Lipase 441 H (23-300) U/L Urine Color Light Yellow Urine Appearance Turbid H (Clear) Urine pH 7.0 (5.0-8.0) Ur Specific Alliance 1.014 (1.001-1.035) Urine Protein 1+ H (Negative) Urine Glucose (UA) Negative (Negative) Urine Ketones Negative (Negative) Urine Blood Large H (Negative) Urine Nitrite Positive H (Negative) Urine Bilirubin Negative (Negative) Urine Urobilinogen <2.0 (<2.0) mg/dL Ur Leukocyte Esterase Large H (Negative) Urine RBC 59 H (0-5) /hpf Urine WBC >182 H (0-5) /hpf Urine WBC Clumps Many H (None) /hpf Ur Squamous Epith Cells 1 (0-4) /hpf Urine Bacteria Many H (None) /hpf Urine Mucus Rare H (None) /hpf Influenza Type A (PCR) (Not Detectd) Influenza Type B (PCR) (Not Detectd) RSV (PCR) (Not Detectd) SARS-CoV-2 (PCR) (Not Detectd) 02/21/25 02/21/25 Range/Units 13:49 13:49 WBC (4.50-10.00) 10*3/uL RBC (4.10-5.20) 10*6/uL Hgb (12.0-15.0) g/dL Hct (37.2-46.3) % MCV (80.0-97.0) fL MCH (27.0-32.0) pg MCHC (32.0-37.0) g/dL Plt Count (140-440) 10*3/uL MPV (9.5-12.2) fL Immature Gran % (Auto) % Neutrophils % % Lymphocytes % % Monocytes % % Eosinophils % % Basophils % % Immature Gran # (0.00-0.04) 10*3/uL Neutrophils # (1.80-7.70) 10*3/uL Lymphocytes # (0.90-5.00) 10*3/uL Monocytes # (0.20-1.00) 10*3/uL Eosinophils # (0.04-0.35) 10*3/uL Basophils # (0.00-0.10) 10*3/uL PT (10.0-12.5) sec INR (<1.2) APTT (22.0-30.0) sec Sodium (137-145) mmol/L Potassium (3.5-5.1) mmol/L Chloride (98-107) mmol/L Carbon Dioxide (22-30) mmol/L Anion Gap mmol/L BUN (7-17) mg/dL Creatinine (0.52-1.04) mg/dL Est GFR (CKD-EPI)AfAm (>60 ml/min/1.73 sqM) Est GFR (CKD-EPI)NonAf (>60 ml/min/1.73 sqM) Glucose (74-99) mg/dL Plasma Lactic Acid Rex (0.7-2.0) mmol/L Calcium (8.4-10.2) mg/dL Phosphorus (2.5-4.5) mg/dL Magnesium (1.6-2.3) mg/dL Total Bilirubin (0.2-1.3) mg/dL AST (14-36) U/L ALT (4-34) U/L Alkaline Phosphatase (38-126) U/L Troponin I <0.012 (0.000-0.034) ng/mL Total Protein (6.3-8.2) g/dL Albumin (3.5-5.0) g/dL Lipase (23-300) U/L Urine Color Urine Appearance (Clear) Urine pH (5.0-8.0) Ur Specific Alliance (1.001-1.035) Urine Protein (Negative) Urine Glucose (UA) (Negative) Urine Ketones (Negative) Urine Blood (Negative) Urine Nitrite (Negative) Urine Bilirubin (Negative) Urine Urobilinogen (<2.0) mg/dL Ur Leukocyte Esterase (Negative) Urine RBC (0-5) /hpf Urine WBC (0-5) /hpf Urine WBC Clumps (None) /hpf Ur Squamous Epith Cells (0-4) /hpf Urine Bacteria (None) /hpf Urine Mucus (None) /hpf Influenza Type A (PCR) Not Detected (Not Detectd) Influenza Type B (PCR) Not Detected (Not Detectd) RSV (PCR) Not Detected (Not Detectd) SARS-CoV-2 (PCR) Not Detected (Not Detectd) - Radiology Data Radiology results: report reviewed, image reviewed Disposition Clinical Impression: Hyponatremia, LISSETTE (acute kidney injury), UTI (urinary tract infection) Disposition: ADMITTED IP TO THIS HOSP Referrals: Kayla Carter DO [Primary Care Provider] - 1-2 days
[2025-02-21 14:08] LABS: Basophils # (A) 0.06 10*3/uL (0.00-0.10); Basophils % (A) 0.2 %; Eosinophils # (A) 0.16 10*3/uL (0.04-0.35); Eosinophils % (A) 0.6 %; HCT 25.9 % (37.2-46.3); HGB 8.8 g/dL (12.0-15.0); Lymphocytes # (A) 0.85 10*3/uL (0.90-5.00); Lymphocytes % (A) 3.2 %; MCH 25.6 pg (27.0-32.0); MCV 75.3 fL (80.0-97.0); Mean Platelet Volume 8.9 fL (9.5-12.2); Monocytes # (A) 0.64 10*3/uL (0.20-1.00); Monocytes % (A) 2.4 %; Neutrophils # (A) 24.01 10*3/uL (1.80-7.70); Neutrophils % (A) 89.7 %; Platelet Count 634 10*3/uL (140-440); RBC 3.44 10*6/uL (4.10-5.20); RDW 16.7 % (11.5-14.5); WBC 26.75 10*3/uL (4.50-10.00)
[2025-02-21] MEDS: ONDANSETRON 4 MG/2 ML VIAL IVP STA (14:12)
[2025-02-21] MEDS: MORPHINE SULFATE 4 MG/ML SYRINGE IVP STA (14:12)
[2025-02-21] MEDS: LACTATED RINGERS 1,000 ML IV ONE (14:13)
[2025-02-21 14:23] LABS: Prothrombin Time 11.5 sec (10.0-12.5)
[2025-02-21 14:24] LABS: Partial Thromboplastin Time 29.3 sec (22.0-30.0)
[2025-02-21 14:25] LABS: ALT 11 U/L (4-34); AST 24 U/L (14-36); African American GFR (CKD) 20 (>60 ml/min/1.73 sqM); Albumin 3.2 g/dL (3.5-5.0); Alkaline Phosphatase 241 U/L (38-126); Anion Gap 15 mmol/L; Blood Urea Nitrogen 52 mg/dL (7-17); Carbon Dioxide 10 mmol/L (22-30); Chloride 93 mmol/L (98-107); Glucose 103 mg/dL (74-99); Lipase 441 U/L (23-300); Non-African American GFR(CKD) 17 (>60 ml/min/1.73 sqM); Potassium 4.1 mmol/L (3.5-5.1); Sodium 118 mmol/L (137-145); Total Bilirubin 0.6 mg/dL (0.2-1.3); Total Protein 7.1 g/dL (6.3-8.2)
[2025-02-21] MEDS: LACTATED RINGERS 1,000 ML IV SCH ×2 (14:44)
[2025-02-21 14:45] LABS: Influenza A Not Detected (Not Detectd); Influenza B Not Detected (Not Detectd); RSV Not Detected (Not Detectd)
[2025-02-21 14:54] LABS: Phosphorus 5.8 mg/dL (2.5-4.5)
--- NOTE | 2025-02-21 15:16 | XR ---
EXAMINATION TYPE: XR chest 2V DATE OF EXAM: 02/21/2025 3:11 PM COMPARISON: Chest radiographs from 11/22/2023 TECHNIQUE: XR chest 2V Frontal and lateral views of the chest. CLINICAL INDICATION:Female, 55 years old with history of Weakness; FINDINGS: Lungs/Pleura: There is no evidence of pleural effusion, focal consolidation, or pneumothorax. Elevat ion the right hemidiaphragm which is increased from prior exam. Pulmonary vascularity: Unremarkable. Heart/mediastinum: Cardiomediastinal silhouette is unremarkable. Musculoskeletal: No acute osseous pathology. IMPRESSION: 1. No focal consolidation. 2. Elevation the right hemidiaphragm which is increased from prior exam. Consider sniff test to eval uate for diaphragmatic paresis. [facility], , 02/21/2025 3:14 PM
[2025-02-21 15:26] LABS: Appearance,Urine Turbid (Clear); Bacteria,Urine Many /hpf; Bilirubin,Urine Negative (Negative); Blood,Urine Large (Negative); Color,Urine Light Yellow; Glucose,Urine (UA) Negative (Negative); Ketones,Urine Negative (Negative); Leukocyte Esterase,Urine Large (Negative); Mucus,Urine Rare /hpf; Nitrite,Urine Positive (Negative); Protein,Urine 1+ (Negative); RBC,Urine 59 /hpf (0-5); Specific Gravity,Urine 1.014 (1.001-1.035); Squamous Epithelial Cell,Urine 1 /hpf (0-4); Urobilinogen,Urine <2.0 mg/dL (<2.0); WBC,Urine >182 /hpf (0-5)
[2025-02-21] MEDS ORDERED: HYDROmorphone 1 MG/ML 1 ML SYRINGE IVP PRN (15:32)
[2025-02-21] MEDS ORDERED: NALOXONE 0.4 MG/ML 1 ML VIAL IV PRN (15:32)
[2025-02-21] MEDS ORDERED: NYSTATIN 100,000 UNIT/GM POWD 15 GM TOPICAL PRN (15:38)
[2025-02-21 16:06] LABS: African American GFR (CKD) 21 (>60 ml/min/1.73 sqM); Anion Gap 12 mmol/L; Blood Urea Nitrogen 51 mg/dL (7-17); Calcium 8.7 mg/dL (8.4-10.2); Carbon Dioxide 12 mmol/L (22-30); Chloride 94 mmol/L (98-107); Glucose 96 mg/dL (74-99); Non-African American GFR(CKD) 18 (>60 ml/min/1.73 sqM); Potassium 3.8 mmol/L (3.5-5.1)
[2025-02-21 16:09] LABS: Sodium 118 mmol/L (137-145)
[2025-02-21 16:13] LABS: NT-Pro-B-Type Natriuretic Pept 2350 pg/mL
--- NOTE | 2025-02-21 16:42 | US ---
EXAMINATION TYPE: US kidneys/renal and bladder DATE OF EXAM: 02/21/2025 COMPARISON: MR abdomen 12/06/2023, CT abdomen and pelvis 11/22/2023 CLINICAL INDICATION: Female, 55 years old with history of LISSETTE; AMS, Abnormal labs, sent by TECHNIQUE: Grayscale imaging of the bilateral kidneys and urinary bladder: FINDINGS: EXAM MEASUREMENTS: Right Kidney: 13.7 x 5.8 x 5.1 cm Left Kidney: 13.8 x 6.3 x 5.3 cm Post Void Residual Volume: NA mL Right Kidney: wnl, no evidence for hydronephrosis, mass or renal calculus. Left Kidney: wnl, no evidence for hydronephrosis, mass or renal calculus. Bladder: Not able to insonate, patient has catheter in Bilateral Jets seen: Not able to assess There is no evidence for hydronephrosis at this point in time. No nephrolithiasis is seen. Corticome dullary differentiation is maintained bilaterally. No masses are identified. The urinary bladder is decompressed with a catheter in place which limits evaluation. IMPRESSION: No hydronephrosis or nephrolithiasis. [facility], , 02/21/2025 4:39 PM
--- NOTE | 2025-02-21 18:17 | P.PN ---
Progress Note - Text Patient's labs are reviewed for a new consult. Patient is not seen. Sodium was 118 on admission. Patient received a fluid bolus of Ringer lactate. She is also quite acidotic with CO2 at 12. Sodium remained at 118 after the bolus. Patient will be started on bicarb drip based in half-normal saline. DC metformin as it can be associated with lactic acidosis and DC Cozaar as well. Consider decreasing dose of Neurontin.
--- NOTE | 2025-02-21 19:51 | P.HPIM ---
History of Present Illness H&P Date: 02/21/25 Chief Complaint: Generalized weakness Patient is a 55-year-old female with a past medical history of hypertension, hyperlipidemia, diabetes type 2 insulin-dependent, metastatic malignant melanoma with mets to liver and lymph nodes, depression, prior history of smoking, GERD and diabetic peripheral neuropathy and history of SVT, prior history of smoking. Patient presents to ER from Dr. Botello's office due to abnormal labs. Patient was also having generalized weakness. She was in the office for her third infusion. She had blood workup done yesterday which showed multiple abnormalities and was recommended to go to ER. She is also having generalized body pains. Also worsening shortness of breath. No chest pain. She does have decreased appetite and not eating well., No nausea no episodes of vomiting. EKG on admission showed sinus rhythm with heart rate 62 Chest x-ray showed no focal consolidation. Elevation of the right hemidiaphragm which is increased from prior exam. Consider sniff test to evaluate for diaphragmatic paralysis. Laboratory data showed WBC 26.7 hemoglobin 8.8 and platelets 634 MCV 75.3 Sodium 118, potassium 4.1 chloride 93 bicarb is 10 BUN 52 and creatinine 2.96, blood sugar 103 lactic acid 1.1 phosphorus 5.8 alk phos 241 proBNP 2350 lipase 441 Urinalysis showed light yellow turbid with large blood nitrite positive leukocyte esterase large elevated RBCs and WBCs. Influenza A B RSV and COVID-19 PCR not detected. Review of Systems Constitutional: Patient denies any fever or chills . Complains of generalized weakness and fatigue and loss of appetite and not eating well.. Abdomen: Patient complains of nausea. No episodes of vomiting. No diarrhea. No abdominal pain. Cardiovascular: Patient denies any chest pain. Positive for short of breath no palpitations. Respiratory: patient denied any cough or sputum production. Positive for shortness of breath Neurologic: Patient denied any numbness or tingling. no headache. Musculoskeletal: Patient denies any complaints of joint swelling or deformity. Skin: Negative Psychiatric: Negative Endocrine: No heat or cold intolerance. No recent weight gain. Genitourinary: No dysuria or hematuria. All other 14 point ROS negative except the above Past Medical History Past Medical History: Cancer, Diabetes Mellitus, GERD/Reflux, Hyperlipidemia, Hypertension, Osteoarthritis (OA) Additional Past Medical History / Comment(s): SVT. ALLERGIES. NEUROPATHY IN FEET. LEFT OPTIC NERVE DEFECT. 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 Rt ankle repair from fracture Past Anesthesia/Blood Transfusion Reactions: No Reported Reaction, Motion Sickness Additional Past Anesthesia/Blood Transfusion Reaction / Comment(s): No hx of blood transfusion to date. Past Psychological History: Depression Smoking Status: Former smoker Past Alcohol Use History: Occasional Additional Past Alcohol Use History / Comment(s): QUIT@ AGE 27, 1PPD Past Drug Use History: None Reported - Past Family History Mother Family Medical History: Cancer, Deep Vein Thrombosis (DVT) Additional Family Medical History / Comment(s): RENAL CA Brother(s) Family Medical History: Deep Vein Thrombosis (DVT) Medications and Allergies Home Medications Medication Instructions Recorded Confirmed Type Pantoprazole Sodium [Protonix] 40 mg PO DAILY 07/19/17 02/21/25 History gemfibroziL [Lopid] 600 mg PO DAILY 07/19/17 02/21/25 History Metoprolol Succinate (ER) [Toprol 50 mg PO HS 11/22/23 02/21/25 History XL] Spironolactone 25 mg PO DAILY 11/22/23 02/21/25 History buPROPion XL [Wellbutrin XL] 150 mg PO DAILY 11/22/23 02/21/25 History dilTIAZem HCL [dilTIAZem HCL 24Hr 120 mg PO HS 11/22/23 02/21/25 History ER (CD)] Gabapentin 600 mg PO BID 12/02/24 02/21/25 History Insulin Glargine/Lixisenatide 60 units SQ AC-BRKFST 12/24/24 02/21/25 History [Soliqua 100 Unit-33 Mcg/ml Pen] Losartan [Cozaar] 50 mg PO DAILY 12/24/24 02/21/25 History Sertraline [Zoloft] 50 mg PO HS 12/24/24 02/21/25 History Apixaban [Eliquis] 2.5 mg PO BID #60 tab 01/03/25 02/21/25 Rx Gabapentin [Neurontin] 300 mg PO BID 02/21/25 02/21/25 History Nystatin [Nystop] 1 applic TOPICAL TID PRN 02/21/25 02/21/25 History Ondansetron [Zofran] 4 mg PO DAILY 02/21/25 02/21/25 History Rosuvastatin [Crestor] 10 mg PO HS 02/21/25 02/21/25 History metFORMIN HCL [Glucophage] 500 mg PO DAILY 02/21/25 02/21/25 History Allergies Allergy/AdvReac Type Severity Reaction Status Date / Time benazepril Allergy "throat Verified 02/21/25 15:31 closing" hydrocodone [From Vicodin] AdvReac Nausea & Verified 02/21/25 15:31 Vomiting Physical Exam Vitals: Vital Signs Temp Pulse Pulse Resp BP BP Pulse Ox 02/21/25 19:05 20 02/21/25 18:26 65 18 125/65 100 02/21/25 17:22 98.9 F 54 L 18 102/55 99 02/21/25 16:53 53 L 18 105/56 98 02/21/25 14:46 97.8 F 65 18 121/58 100 02/21/25 13:08 97.0 F L 59 L 18 106/68 91 L Intake and Output 02/21/25 02/21/25 02/21/25 06:59 14:59 22:59 Other: Weight 158.757 kg 158.757 kg PHYSICAL EXAMINATION: Patient is lying in the bed, mild distress with pain and anxious., awake alert and oriented. morbid obesity. HEENT: Normocephalic. Neck is supple. Pupils reactive. Nostrils clear. Oral cavity is moist. Neck reveals no JVD, carotid bruits, or thyromegaly. CHEST EXAMINATION: Trachea is central. Symmetrical expansion. Bibasilar diminished sounds otherwise lung gómez clear to auscultation and percussion. CARDIAC: Normal S1, S2 with no gallops. No murmurs ABDOMEN: Soft. Bowel sounds normal. No organomegaly. No abdominal bruits. Extremities: reveal no edema. No clubbing or cyanosis Neurologically awake, alert, oriented x3 with well-coordinated movements. No gross focal deficits noted Skin: No rash or skin lesions. Psychiatric: Coperative. Nonsuicidal Musculoskeletal: No joint swelling or deformity. Normal range of motion. Results CBC & Chem 7: 02/21/25 13:49 02/21/25 18:59 Labs: Abnormal Lab Results - Last 24 Hours (Table) 02/21/25 02/21/25 02/21/25 Range/Units 13:47 13:49 13:49 WBC 26.75 H (4.50-10.00) 10*3/uL RBC 3.44 L (4.10-5.20) 10*6/uL Hgb 8.8 L (12.0-15.0) g/dL Hct 25.9 L (37.2-46.3) % MCV 75.3 L (80.0-97.0) fL MCH 25.6 L (27.0-32.0) pg Plt Count 634 H (140-440) 10*3/uL MPV 8.9 L (9.5-12.2) fL Immature Gran # 1.03 H (0.00-0.04) 10*3/uL Neutrophils # 24.01 H (1.80-7.70) 10*3/uL Lymphocytes # 0.85 L (0.90-5.00) 10*3/uL Sodium (137-145) mmol/L Chloride (98-107) mmol/L Carbon Dioxide (22-30) mmol/L BUN (7-17) mg/dL Creatinine (0.52-1.04) mg/dL Glucose (74-99) mg/dL Phosphorus 5.8 H (2.5-4.5) mg/dL Alkaline Phosphatase (38-126) U/L Albumin (3.5-5.0) g/dL Lipase (23-300) U/L Urine Appearance Turbid H (Clear) Urine Protein 1+ H (Negative) Urine Blood Large H (Negative) Urine Nitrite Positive H (Negative) Ur Leukocyte Esterase Large H (Negative) Urine RBC 59 H (0-5) /hpf Urine WBC >182 H (0-5) /hpf Urine WBC Clumps Many H (None) /hpf Urine Bacteria Many H (None) /hpf Urine Mucus Rare H (None) /hpf 02/21/25 02/21/25 Range/Units 13:49 15:40 WBC (4.50-10.00) 10*3/uL RBC (4.10-5.20) 10*6/uL Hgb (12.0-15.0) g/dL Hct (37.2-46.3) % MCV (80.0-97.0) fL MCH (27.0-32.0) pg Plt Count (140-440) 10*3/uL MPV (9.5-12.2) fL Immature Gran # (0.00-0.04) 10*3/uL Neutrophils # (1.80-7.70) 10*3/uL Lymphocytes # (0.90-5.00) 10*3/uL Sodium 118 L* 118 L* (137-145) mmol/L Chloride 93 L 94 L (98-107) mmol/L Carbon Dioxide 10 L 12 L (22-30) mmol/L BUN 52 H 51 H (7-17) mg/dL Creatinine 2.96 H 2.79 H (0.52-1.04) mg/dL Glucose 103 H (74-99) mg/dL Phosphorus (2.5-4.5) mg/dL Alkaline Phosphatase 241 H (38-126) U/L Albumin 3.2 L (3.5-5.0) g/dL Lipase 441 H (23-300) U/L Urine Appearance (Clear) Urine Protein (Negative) Urine Blood (Negative) Urine Nitrite (Negative) Ur Leukocyte Esterase (Negative) Urine RBC (0-5) /hpf Urine WBC (0-5) /hpf Urine WBC Clumps (None) /hpf Urine Bacteria (None) /hpf Urine Mucus (None) /hpf Thrombosis Risk Factor Assmnt - DVT/VTE Prophylaxis DVT/VTE Prophylaxis: Pharmacologic Prophylaxis ordered Assessment and Plan Assessment: Severe hyponatremia with sodium level 118-hypoosmolar hyponatremia due to decreased oral intake and LISSETTE Acute kidney injury. Possible ATN. Creatinine 2.96 on admission baseline 1.0 Non-anion gap metabolic acidosis Acute urinary tract infection Mild pancreatitis with lipase level 441 Malignant melanoma with mets to liver and lymph nodes. On chemoinfusion and is on follow-up with oncology. Diabetes type 2 insulin-dependent Diabetic peripheral neuropathy History of SVT Paroxysmal atrial fibrillation Osteoarthritis Hypertension Hyperlipidemia GERD Depression Prior history of smoking Microcytic anemia rule out iron deficiency. Hemoglobin 8.8 on admission morbid obesity GI prophylax with PPI and currently on anticoagulation with Eliquis Plan: Patient will be continued on telemonitoring. Was given Ringer's lactate in the ER. Repeat sodium level is still at 118. Patient is currently on half-normal saline and monitor sodium level every 6 hourly. Metformin, spironolactone and Cozaar is on hold due to acute kidney injury. Reduce Neurontin dose to 600 mg twice daily. Renal ultrasound was ordered. Follow-up serum osmolality, urine osmolality random urine sodium and protein/creatinine. Continue with ceftriaxone for urinary tract infection. Follow-up urine culture report. Continue with insulin regimen and sliding scale and other home medications. Nephrology, oncology and ID is on board. Prognosis is guarded at this time. Time with Patient: Greater than 30
[2025-02-21 19:58] LABS: Glucose,Whole Blood 102 mg/dL (70-110)
[2025-02-21] MEDS: APIXABAN 2.5 MG TABLET PO SCH (20:49)
[2025-02-21] MEDS: ATORVASTATIN 20 MG TAB PO SCH (20:49)
[2025-02-21] MEDS: SODIUM CHLORIDE 0.45% 1,000 ML with SODIUM BICARB (1 MEQ/ML) 100 ML IV SCH (20:49)
[2025-02-21] MEDS: DILTIAZEM CD 120 MG CAP.ER.24H PO SCH (20:50)
[2025-02-21] MEDS: METOPROLOL SUCCINATE (ER) 50 MG TAB.ER.24H PO SCH (20:51)
[2025-02-21] MEDS: SERTRALINE 50 MG TAB PO SCH (20:51)
[2025-02-21] MEDS: GABAPENTIN 300 MG CAP PO SCH (20:52)
[2025-02-21] MEDS ORDERED: GABAPENTIN 300 MG CAP PO SCH (21:00)
[2025-02-21 22:41] LABS: Glucose,Whole Blood 72 mg/dL (70-110)
--- NOTE | 2025-02-21 23:08 | P.CONS ---
History of Present Illness - Reason for Consult Consult date: 02/21/25 UTI Requesting physician: Kaur Bloom - Chief Complaint Weakness not feeling well x days - History of Present Illness Patient is a 55-year-old female with a past medical history significant for stage IV malignant melanoma on chemo, Diabetes Mellitus, GERD/Reflux, Hyperlipidemia, Hypertension, Osteoarthritis (OA) presenting to the hospital for evaluation of generalized weakness was noticed to have on an outpatient blood work metabolic abnormalities for the patient was advised to go to the hospital patient be complaining of pain to the genital area also having difficulty urination with burning and some flank pain patient also complaining of increasing shortness of breath on arrival to the ER the patient was afebrile and no fever have been called subsequently patient was mildly tachycardic and hypotensive requiring admission to the ICU he was not hypoxic no need for supplemental oxygen patient did have white count of 26.75 creatinine is 2.79 sodium was 118 liver enzymes are normal urine has been positive influenza RSV COVID testing has been negative patient did have a chest x-ray no focal consolidation patient did have abdominal bladder ultrasound no evidence for hydronephrosis or nephrolithiasis patient received a dose of ceftriaxone in the ER infectious was consulted for further management of antibiotic therapy Review of Systems Positive point and negatives has been mentioned in the HPI, complete review of systems was performed and all other systems are negative Past Medical History Past Medical History: Cancer, Diabetes Mellitus, GERD/Reflux, Hyperlipidemia, Hypertension, Osteoarthritis (OA) Additional Past Medical History / Comment(s): SVT. ALLERGIES. NEUROPATHY IN FEET. 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 Past Psychological History: Depression Smoking Status: Former smoker Past Alcohol Use History: Occasional Past Drug Use History: None Reported - Past Family History Mother Family Medical History: Cancer, Deep Vein Thrombosis (DVT) Additional Family Medical History / Comment(s): RENAL CA Brother(s) Family Medical History: Deep Vein Thrombosis (DVT) Medications and Allergies Home Medications Medication Instructions Recorded Confirmed Type Pantoprazole Sodium [Protonix] 40 mg PO DAILY 07/19/17 02/21/25 History gemfibroziL [Lopid] 600 mg PO DAILY 07/19/17 02/21/25 History Metoprolol Succinate (ER) [Toprol 50 mg PO HS 11/22/23 02/21/25 History XL] Spironolactone 25 mg PO DAILY 11/22/23 02/21/25 History buPROPion XL [Wellbutrin XL] 150 mg PO DAILY 11/22/23 02/21/25 History dilTIAZem HCL [dilTIAZem HCL 24Hr 120 mg PO HS 11/22/23 02/21/25 History ER (CD)] Gabapentin 600 mg PO BID 12/02/24 02/21/25 History Insulin Glargine/Lixisenatide 60 units SQ AC-BRKFST 12/24/24 02/21/25 History [Soliqua 100 Unit-33 Mcg/ml Pen] Losartan [Cozaar] 50 mg PO DAILY 12/24/24 02/21/25 History Sertraline [Zoloft] 50 mg PO HS 12/24/24 02/21/25 History Apixaban [Eliquis] 2.5 mg PO BID #60 tab 01/03/25 02/21/25 Rx Gabapentin [Neurontin] 300 mg PO BID 02/21/25 02/21/25 History Nystatin [Nystop] 1 applic TOPICAL TID PRN 02/21/25 02/21/25 History Ondansetron [Zofran] 4 mg PO DAILY 02/21/25 02/21/25 History Rosuvastatin [Crestor] 10 mg PO HS 02/21/25 02/21/25 History metFORMIN HCL [Glucophage] 500 mg PO DAILY 02/21/25 02/21/25 History Allergies Allergy/AdvReac Type Severity Reaction Status Date / Time benazepril Allergy "throat Verified 02/21/25 15:31 closing" hydrocodone [From Vicodin] AdvReac Nausea & Verified 02/21/25 15:31 Vomiting Physical Exam Vitals: Vital Signs Temp Pulse Resp BP Pulse Ox 02/21/25 14:46 97.8 F 65 18 121/58 100 02/21/25 13:08 97.0 F L 59 L 18 106/68 91 L Intake and Output 02/21/25 02/21/2502/21/25 06:59 14:59 22:59 Other: Weight 158.757 kg GENERAL DESCRIPTION: Middle-age female lying in bed, no distress. No tachypnea or accessory muscle of respiration use. HEENT: Shows Pallor , no scleral icterus. Oral mucous membrane is dry. NECK: Trachea central, no thyromegaly. LUNGS: Unlabored breathing. Clear to auscultation anteriorly. No wheeze or crackle. HEART: S1, S2, regular rate and rhythm. No loud murmur ABDOMEN: Soft, no tenderness , guarding or rigidity, no organomegaly EXTREMITIES: No edema of feet. SKIN: No rash, no masses palpable. NEUROLOGICAL: The patient is awake, alert, oriented x3, mood and affect normal. Results CBC & Chem 7: 02/21/25 13:49 02/21/25 21:10 Labs: Abnormal Lab Results - Last 24 Hours (Table) 02/21/25 02/21/25 02/21/25 Range/Units 13:47 13:49 13:49 WBC 26.75 H (4.50-10.00) 10*3/uL RBC 3.44 L (4.10-5.20) 10*6/uL Hgb 8.8 L (12.0-15.0) g/dL Hct 25.9 L (37.2-46.3) % MCV 75.3 L (80.0-97.0) fL MCH 25.6 L (27.0-32.0) pg Plt Count 634 H (140-440) 10*3/uL MPV 8.9 L (9.5-12.2) fL Immature Gran # 1.03 H (0.00-0.04) 10*3/uL Neutrophils # 24.01 H (1.80-7.70) 10*3/uL Lymphocytes # 0.85 L (0.90-5.00) 10*3/uL Sodium (137-145) mmol/L Chloride (98-107) mmol/L Carbon Dioxide (22-30) mmol/L BUN (7-17) mg/dL Creatinine (0.52-1.04) mg/dL Glucose (74-99) mg/dL Phosphorus 5.8 H (2.5-4.5) mg/dL Alkaline Phosphatase (38-126) U/L Albumin (3.5-5.0) g/dL Lipase (23-300) U/L Urine Appearance Turbid H (Clear) Urine Protein 1+ H (Negative) Urine Blood Large H (Negative) Urine Nitrite Positive H (Negative) Ur Leukocyte Esterase Large H (Negative) Urine RBC 59 H (0-5) /hpf Urine WBC >182 H (0-5) /hpf Urine WBC Clumps Many H (None) /hpf Urine Bacteria Many H (None) /hpf Urine Mucus Rare H (None) /hpf 02/21/25 02/21/25 Range/Units 13:49 15:40 WBC (4.50-10.00) 10*3/uL RBC (4.10-5.20) 10*6/uL Hgb (12.0-15.0) g/dL Hct (37.2-46.3) % MCV (80.0-97.0) fL MCH (27.0-32.0) pg Plt Count (140-440) 10*3/uL MPV (9.5-12.2) fL Immature Gran # (0.00-0.04) 10*3/uL Neutrophils # (1.80-7.70) 10*3/uL Lymphocytes # (0.90-5.00) 10*3/uL Sodium 118 L* 118 L* (137-145) mmol/L Chloride 93 L 94 L (98-107) mmol/L Carbon Dioxide 10 L 12 L (22-30) mmol/L BUN 52 H 51 H (7-17) mg/dL Creatinine 2.96 H 2.79 H (0.52-1.04) mg/dL Glucose 103 H (74-99) mg/dL Phosphorus (2.5-4.5) mg/dL Alkaline Phosphatase 241 H (38-126) U/L Albumin 3.2 L (3.5-5.0) g/dL Lipase 441 H (23-300) U/L Urine Appearance (Clear) Urine Protein (Negative) Urine Blood (Negative) Urine Nitrite (Negative) Ur Leukocyte Esterase (Negative) Urine RBC (0-5) /hpf Urine WBC (0-5) /hpf Urine WBC Clumps (None) /hpf Urine Bacteria (None) /hpf Urine Mucus (None) /hpf Assessment and Plan (1) Sepsis Current Visit: Yes Status: Acute Code(s): A41.9 - SEPSIS, UNSPECIFIED ORGANISM SNOMED Code(s): 62026713 (2) LISSETTE (acute kidney injury) Current Visit: Yes Status: Acute Code(s): N17.9 - ACUTE KIDNEY FAILURE, UNSPECIFIED SNOMED Code(s): 50611343 (3) UTI (urinary tract infection) Current Visit: Yes Status: Acute Code(s): N39.0 - URINARY TRACT INFECTION, SITE NOT SPECIFIED SNOMED Code(s): 63595166 Plan: 1patient presented hospital with sepsis in this patient who did have tachycardia hypotension elevated white count meeting criteria for SIRS/sepsis source likely urinary in this patient has significantly positive UA along with urinary symptoms likely from enteric gram-negative pathogen keeping in mind history of cancer on chemo will need to cover for resistant gram-negative pathogen 2-patient elevated creatinine and high risk of nephrotoxicity from certain antibiotics 3-I will adjust antibiotic to cefepime while waiting for the culture to finalize We will follow on clinical condition and cultures to further adjust medication if needed Thank you for this consultation we will follow the patient along with you Dictation was produced using [employer] dictation software. please excuse any grammatical, word or spelling errors. Time with Patient: Greater than 30
[2025-02-21] MEDS: SODIUM CHLORIDE 0.9% 1,000 ML IV ONE (23:14)
[2025-02-21] MEDS: SODIUM CHLORIDE 3%(HYPERTONIC) 500 ML IV ONE (23:15)
[2025-02-22] MEDS: ceFAZolin 2 GM in DEXTROSE 5% IN WATER 50 ML IVPB SCH (00:44)
[2025-02-22] MEDS: NOREPINEPHRINE 4 MG in SODIUM CHLORIDE 0.9% 250 ML IV SCH (01:02)
[2025-02-22 05:10] LABS: Basophils # (A) 0.03 10*3/uL (0.00-0.10); Basophils % (A) 0.1 %; Eosinophils # (A) 0.24 10*3/uL (0.04-0.35); Eosinophils % (A) 1.1 %; HCT 24.8 % (37.2-46.3); HGB 8.2 g/dL (12.0-15.0); Lymphocytes # (A) 1.02 10*3/uL (0.90-5.00); Lymphocytes % (A) 4.7 %; MCH 25.4 pg (27.0-32.0); MCHC 33.1 g/dL (32.0-37.0); MCV 76.8 fL (80.0-97.0); Mean Platelet Volume 8.7 fL (9.5-12.2); Monocytes # (A) 0.96 10*3/uL (0.20-1.00); Monocytes % (A) 4.4 %; Neutrophils # (A) 18.69 10*3/uL (1.80-7.70); Platelet Count 591 10*3/uL (140-440); RBC 3.23 10*6/uL (4.10-5.20); RDW 17.1 % (11.5-14.5); WBC 21.74 10*3/uL (4.50-10.00)
[2025-02-22 06:17] LABS: Glucose,Whole Blood 48 mg/dL (70-110)
[2025-02-22 06:50] LABS: Glucose,Whole Blood 70 mg/dL (70-110)
[2025-02-22] MEDS: NON FORMULARY DRUG (Insulin Glargine/Lixisenatide [Soliqua 100 Unit-33 Mcg/Ml Pen] 3 ML In SQ SCH (06:52)
[2025-02-22 07:24] LABS: African American GFR (CKD) 22 (>60 ml/min/1.73 sqM); Anion Gap 16 mmol/L; Blood Urea Nitrogen 54 mg/dL (7-17); Calcium 8.8 mg/dL (8.4-10.2); Chloride 101 mmol/L (98-107); Glucose 55 mg/dL (74-99); Non-African American GFR(CKD) 19 (>60 ml/min/1.73 sqM); Potassium 4.5 mmol/L (3.5-5.1); Sodium 123 mmol/L (137-145)
[2025-02-22 07:46] LABS: Sodium 122 mmol/L (137-145)
[2025-02-22 07:58] LABS: Carbon Dioxide 6 mmol/L (22-30)
--- NOTE | 2025-02-22 08:15 | P.NPCON ---
History of Present Illness - Reason for Consult hyponatremia - History of Present Illness Reason for consultation: Hyponatremia History of present illness: Patient is a 55-year-old female seen in renal consultation for hyponatremia. Sodium level on admission was 118 on February 21, 2025 and 1:49 PM. Patient received a liter bolus of LR. Patient sodium level at 9:10 PM was still at 118. Patient was hypotensive. She received another liter of fluid bolus and was subsequently transferred to the ICU. She received 3% overnight and sodium level this morning at 6:51 AM was 122. Patient is still quite lethargic but does answer questions. She does have history of diabetes. Denies history of coronary artery disease. Denies taking a diuretic at home. She states the oral intake for the last few days has been quite poor. She denies vomiting or diarrhea. She has been voiding but admits to burning with urination. UA suggestive of UTI. She is on antibiotics. She is currently not on vasopressors. She does have history of metastatic melanoma with metastatic disease to liver and lymph nodes. Patient states she has been receiving infusion therapy on a monthly basis. She had blood work done at her oncologist office and was advised to come to the hospital due to abnormal labs. Vital signs are stable. General: No acute distress. HEENT: Head exam is unremarkable. LUNGS: No audible rhonchi or wheezes. HEART: Rate and Rhythm are regular. ABDOMEN: Obese, nontender. EXTREMITITES: No edema. Past Medical History Past Medical History: Cancer, Diabetes Mellitus, GERD/Reflux, Hyperlipidemia, Hypertension, Osteoarthritis (OA) Additional Past Medical History / Comment(s): SVT. ALLERGIES. NEUROPATHY IN FEET. 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 Past Psychological History: Depression Smoking Status: Former smoker Past Alcohol Use History: Occasional Past Drug Use History: None Reported - Past Family History Mother Family Medical History: Cancer, Deep Vein Thrombosis (DVT) Additional Family Medical History / Comment(s): RENAL CA Brother(s) Family Medical History: Deep Vein Thrombosis (DVT) Medications and Allergies Home Medications Medication Instructions Recorded Confirmed Type Pantoprazole Sodium [Protonix] 40 mg PO DAILY 07/19/17 02/21/25 History gemfibroziL [Lopid] 600 mg PO DAILY 07/19/17 02/21/25 History Metoprolol Succinate (ER) [Toprol 50 mg PO HS 11/22/23 02/21/25 History XL] Spironolactone 25 mg PO DAILY 11/22/23 02/21/25 History buPROPion XL [Wellbutrin XL] 150 mg PO DAILY 11/22/23 02/21/25 History dilTIAZem HCL [dilTIAZem HCL 24Hr 120 mg PO HS 11/22/23 02/21/25 History ER (CD)] Gabapentin 600 mg PO BID 12/02/24 02/21/25 History Insulin Glargine/Lixisenatide 60 units SQ AC-BRKFST 12/24/24 02/21/25 History [Soliqua 100 Unit-33 Mcg/ml Pen] Losartan [Cozaar] 50 mg PO DAILY 12/24/24 02/21/25 History Sertraline [Zoloft] 50 mg PO HS 12/24/24 02/21/25 History Apixaban [Eliquis] 2.5 mg PO BID #60 tab 01/03/25 02/21/25 Rx Gabapentin [Neurontin] 300 mg PO BID 02/21/25 02/21/25 History Nystatin [Nystop] 1 applic TOPICAL TID PRN 02/21/25 02/21/25 History Ondansetron [Zofran] 4 mg PO DAILY 02/21/25 02/21/25 History Rosuvastatin [Crestor] 10 mg PO HS 02/21/25 02/21/25 History metFORMIN HCL [Glucophage] 500 mg PO DAILY 02/21/25 02/21/25 History Allergies Allergy/AdvReac Type Severity Reaction Status Date / Time benazepril Allergy "throat Verified 02/21/25 15:31 closing" hydrocodone [From Vicodin] AdvReac Nausea & Verified 02/21/25 15:31 Vomiting Physical Exam Vitals: Vital Signs Temp Pulse Pulse Resp BP BP Pulse Ox 02/22/25 07:30 62 18 83/45 100 02/22/25 07:15 63 18 79/43 100 02/22/25 07:00 65 18 88/48 100 02/22/25 06:45 63 18 105/44 99 02/22/25 06:30 65 17 98/43 99 02/22/25 06:15 65 19 94/59 100 02/22/25 06:00 64 26 H 113/56 99 02/22/25 05:45 68 14 94/33 100 02/22/25 05:30 62 18 117/57 99 02/22/25 05:15 62 12 107/32 98 02/22/25 05:00 63 12 113/46 93 L 02/22/25 04:45 64 11 L 112/47 98 02/22/25 04:30 63 9 L 106/59 100 02/22/25 04:15 62 9 L 108/55 99 02/22/25 04:00 97.5 F L 62 8 L 104/53 99 02/22/25 03:45 61 8 L 93/61 99 02/22/25 03:30 60 8 L 105/54 99 02/22/25 03:15 60 8 L 93/50 99 02/22/25 03:00 60 9 L 105/64 99 02/22/25 02:45 62 9 L 93/49 99 02/22/25 02:30 61 11 L 93/49 99 02/22/25 02:15 59 L 8 L 100/51 99 02/22/25 02:00 58 L 8 L 103/49 99 02/22/25 01:45 60 8 L 117/60 99 02/22/25 01:30 61 9 L 118/56 97 02/22/25 01:15 69 11 L 84/45 96 02/22/25 01:00 60 11 L 80/42 99 02/22/25 00:45 60 9 L 91/50 98 02/22/25 00:30 59 L 18 87/55 99 02/22/25 00:15 61 16 105/47 99 02/22/25 00:00 97.4 F L 62 18 106/53 100 02/21/25 23:45 61 16 104/64 100 02/21/25 23:30 62 14 111/60 99 02/21/25 23:15 61 16 111/60 100 02/21/25 23:00 59 L 16 119/68 96 02/21/25 22:45 64 14 112/70 98 02/21/25 22:41 68 19 112/70 96 02/21/25 22:21 75/39 02/21/25 22:15 75/44 02/21/25 20:00 97.4 F L 99 20 78/47 99 02/21/25 19:05 20 02/21/25 18:26 65 18 125/65 100 02/21/25 17:22 98.9 F 54 L 18 102/55 99 02/21/25 16:53 53 L 18 105/56 98 02/21/25 14:46 97.8 F 65 18 121/58 100 02/21/25 13:08 97.0 F L 59 L 18 106/68 91 L Intake and Output 02/21/25 02/22/25 02/22/25 22:59 06:59 14:59 Intake Total 776.272 25 Output Total 500 0 Balance 276.272 25 Intake: IV 175 25 Sodium Chloride 3%( 175 25 Hypertonic) 500 ml @ 25 mls/hr IV .Q20H [facility] Rx#: [id number] Intake, IV Titration 121.272 Amount Norepinephrine 4 mg In 71.272 Sodium Chloride 0.9% 250 ml @ 0.03 MCG/KG/MIN 18. 146 mls/hr IV .Q14H [facility] Rx#:[id number] ceFAZolin 2 gm In 50 Dextrose 5% in Water 50 ml @ 100 mls/hr IVPB Q12HR [facility] Rx#:[id number] Oral 480 Output: Urine 500 0 Other: Voiding Method External Catheter # Voids 1 # Bowel Movements 0 Weight 158.757 kg Results - Lab Results Most recent lab results Calcium 8.8 mg/dL (8.4-10.2) 02/22/25 04:35 Phosphorus 5.8 mg/dL (2.5-4.5) H 02/21/25 13:47 Magnesium 2.0 mg/dL (1.6-2.3) 02/21/25 13:49 02/22/25 04:35 02/22/25 06:51 Assessment and Plan Plan: Assessment: 1. 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 Urine osmolality 252. Sodium level 118 on admission and was 122 this morning. On 3% saline. 2. Malignant melanoma with metastatic disease to liver and lymph nodes. 3. Acute kidney injury secondary to ATN secondary to severe sepsis. Baseline creatinine near 1 from December 2024. Creatinine 2.96 on admission and is 2.72 today. 4. UTI on antibiotics. 5. Metabolic acidosis secondary to acute kidney injury and IV fluids. Was also on metformin. 6. Diabetes mellitus. Plan: Stop 3%. Start half-normal saline with 2 A of bicarb to be run at 75 cc an hour. Will give sodium bicarb IV push. Continue to check sodium level every 2 hours. Check BMP this evening. Check TSH and cortisol level. Follow-up cultures. Continue to monitor renal function and urine output. Thank you for the consultation. I will continue to follow the patient with you during her hospital stay.
[2025-02-22] MEDS: SODIUM BICARB 8.4% 50 ML SYR (1 MEQ/ML) IV STA (08:28)
[2025-02-22] MEDS: PANTOPRAZOLE 40 MG/10 ML VIAL IV SCH (08:42)
[2025-02-22] MEDS ORDERED: SPIRONOLACTONE 25 MG TAB PO SCH (09:00)
[2025-02-22] MEDS ORDERED: PANTOPRAZOLE 40 MG TABLET PO SCH (09:00)
[2025-02-22] MEDS ORDERED: metFORMIN 500 MG TAB PO SCH (09:00)
[2025-02-22] MEDS ORDERED: LOSARTAN 50 MG TAB PO SCH (09:00)
[2025-02-22] MEDS: FENOFIBRATE 160 MG TAB PO SCH (09:27)
[2025-02-22] MEDS: ONDANSETRON ODT 4 MG TAB PO SCH (09:27)
[2025-02-22] MEDS: buPROPion XL 150 MG TAB.ER.24H PO SCH (09:27)
[2025-02-22 10:00] LABS: Glucose,Whole Blood 65 mg/dL (70-110)
[2025-02-22] MEDS: DEXTROSE 50% SYRINGE 50 ML IVP STA (10:08)
[2025-02-22 10:23] LABS: Glucose,Whole Blood 102 mg/dL (70-110)
--- NOTE | 2025-02-22 10:31 | P.CNPUL ---
History of Present Illness Consult date: 02/22/25 Requesting physician: Izabella Simmons Reason for consult: other (Critical care management) Chief complaint: Generalized weakness History of present illness: This is a pleasant 55-year-old female patient with a known history of diabetes melitis, type II, hypertension, hyperlipidemia, former smoker, peripheral neuropathy, SVT. She also has a history of metastatic malignant melanoma with mets to the liver and lymph nodes. She was in Dr. Botello's office yesterday for her third infusion of chemotherapy and was found to have abnormal labs and the patient also had generalized weakness. She was referred to the ER for the same. She was found to have a sodium of 118 and was initiated on 3% saline and admitted to the intensive care unit. She is seen today in consultation. She is awake and alert. Quite weak. Maintaining good O2 saturations up to 100% on room air. She briefly required norepinephrine for hypotension. The most recent sodium was 122. 3% saline is on pause. She has a sodium bicarbonate drip at 75 mL/h. Anticoagulated with Eliquis. White count 21.7. Hemoglobin 8.2. P latelets 591. Potassium 4.5. Bicarb 6. BUN 54. Creatinine 2.72. Glucose 65. Chest x-ray shows no focal consolidation. Some elevation in the right hemidiaphragm. Review of Systems REVIEW OF SYSTEMS: CONSTITUTIONAL: Positive for generalized weakness. Denies any recent significant weight loss or weight gain. EYES: Denies change in vision. EARS, NOSE, MOUTH, THROAT: Denies headaches, denies sore throat. CARDIOVASCULAR: Denies chest pain, palpitations or syncopal episodes. RESPIRATORY: Denies shortness of breath, cough, congestion or hemoptysis. GASTROINTESTINAL: Denies change in appetite, denies abdominal pain GENITOURINARY: Denies hematuria, denies infections. MUSKULOSKELETAL: Denies pain, denies swelling. INTEGUMENTARY: Denies rash, denies eczema. NEUROLOGICAL: Denies recent memory loss, no recent seizure activity. PSYCHIATRIC: Denies anxiety, denies depression. HEMATOLOGIC/LYMPHATIC: Denies anemia, denies enlarged lymph nodes. Past Medical History Past Medical History: Cancer, Diabetes Mellitus, GERD/Reflux, Hyperlipidemia, Hypertension, Osteoarthritis (OA) Additional Past Medical History / Comment(s): SVT. ALLERGIES. NEUROPATHY IN FEET. 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 Past Psychological History: Depression Smoking Status: Former smoker Past Alcohol Use History: Occasional Past Drug Use History: None Reported - Past Family History Mother Family Medical History: Cancer, Deep Vein Thrombosis (DVT) Additional Family Medical History / Comment(s): RENAL CA Brother(s) Family Medical History: Deep Vein Thrombosis (DVT) Medications and Allergies Home Medications Medication Instructions Recorded Confirmed Type Pantoprazole Sodium [Protonix] 40 mg PO DAILY 07/19/17 02/21/25 History gemfibroziL [Lopid] 600 mg PO DAILY 07/19/17 02/21/25 History Metoprolol Succinate (ER) [Toprol 50 mg PO HS 11/22/23 02/21/25 History XL] Spironolactone 25 mg PO DAILY 11/22/23 02/21/25 History buPROPion XL [Wellbutrin XL] 150 mg PO DAILY 11/22/23 02/21/25 History dilTIAZem HCL [dilTIAZem HCL 24Hr 120 mg PO HS 11/22/23 02/21/25 History ER (CD)] Gabapentin 600 mg PO BID 12/02/24 02/21/25 History Insulin Glargine/Lixisenatide 60 units SQ AC-BRKFST 12/24/24 02/21/25 History [Soliqua 100 Unit-33 Mcg/ml Pen] Losartan [Cozaar] 50 mg PO DAILY 12/24/24 02/21/25 History Sertraline [Zoloft] 50 mg PO HS 12/24/24 02/21/25 History Apixaban [Eliquis] 2.5 mg PO BID #60 tab 01/03/25 02/21/25 Rx Gabapentin [Neurontin] 300 mg PO BID 02/21/25 02/21/25 History Nystatin [Nystop] 1 applic TOPICAL TID PRN 02/21/25 02/21/25 History Ondansetron [Zofran] 4 mg PO DAILY 02/21/25 02/21/25 History Rosuvastatin [Crestor] 10 mg PO HS 02/21/25 02/21/25 History metFORMIN HCL [Glucophage] 500 mg PO DAILY 02/21/25 02/21/25 History Allergies Allergy/AdvReac Type Severity Reaction Status Date / Time benazepril Allergy "throat Verified 02/21/25 15:31 closing" hydrocodone [From Vicodin] AdvReac Nausea & Verified 02/21/25 15:31 Vomiting Physical Exam Vitals: Vital Signs Temp Pulse Pulse Resp BP BP Pulse Ox 02/22/25 07:30 62 18 83/45 100 02/22/25 07:15 63 18 79/43 100 02/22/25 07:00 65 18 88/48 100 02/22/25 06:45 63 18 105/44 99 02/22/25 06:30 65 17 98/43 99 02/22/25 06:15 65 19 94/59 100 02/22/25 06:00 64 26 H 113/56 99 02/22/25 05:45 68 14 94/33 100 02/22/25 05:30 62 18 117/57 99 02/22/25 05:15 62 12 107/32 98 02/22/25 05:00 63 12 113/46 93 L 02/22/25 04:45 64 11 L 112/47 98 02/22/25 04:30 63 9 L 106/59 100 02/22/25 04:15 62 9 L 108/55 99 02/22/25 04:00 97.5 F L 62 8 L 104/53 99 02/22/25 03:45 61 8 L 93/61 99 02/22/25 03:30 60 8 L 105/54 99 02/22/25 03:15 60 8 L 93/50 99 02/22/25 03:00 60 9 L 105/64 99 02/22/25 02:45 62 9 L 93/49 99 02/22/25 02:30 61 11 L 93/49 99 02/22/25 02:15 59 L 8 L 100/51 99 02/22/25 02:00 58 L 8 L 103/49 99 02/22/25 01:45 60 8 L 117/60 99 02/22/25 01:30 61 9 L 118/56 97 02/22/25 01:15 69 11 L 84/45 96 02/22/25 01:00 60 11 L 80/42 99 02/22/25 00:45 60 9 L 91/50 98 02/22/25 00:30 59 L 18 87/55 99 02/22/25 00:15 61 16 105/47 99 02/22/25 00:00 97.4 F L 62 18 106/53 100 02/21/25 23:45 61 16 104/64 100 02/21/25 23:30 62 14 111/60 99 02/21/25 23:15 61 16 111/60 100 02/21/25 23:00 59 L 16 119/68 96 02/21/25 22:45 64 14 112/70 98 02/21/25 22:41 68 19 112/70 96 02/21/25 22:21 75/39 02/21/25 22:15 75/44 02/21/25 20:00 97.4 F L 99 20 78/47 99 02/21/25 19:05 20 02/21/25 18:26 65 18 125/65 100 02/21/25 17:22 98.9 F 54 L 18 102/55 99 02/21/25 16:53 53 L 18 105/56 98 02/21/25 14:46 97.8 F 65 18 121/58 100 02/21/25 13:08 97.0 F L 59 L 18 106/68 91 L Intake and Output 02/21/25 02/22/25 02/22/25 22:59 06:59 14:59 Intake Total 776.272 25 Output Total 500 0 Balance 276.272 25 Intake: IV 175 25 Sodium Chloride 3%( 175 25 Hypertonic) 500 ml @ 25 mls/hr IV .Q20H [facility] Rx#: [id number] Intake, IV Titration 121.272 Amount Norepinephrine 4 mg In 71.272 Sodium Chloride 0.9% 250 ml @ 0.03 MCG/KG/MIN 18. 146 mls/hr IV .Q14H [facility] Rx#:[id number] ceFAZolin 2 gm In 50 Dextrose 5% in Water 50 ml @ 100 mls/hr IVPB Q12HR [facility] Rx#:[id number] Oral 480 Output: Urine 500 0 Other: Voiding Method External Catheter # Voids 1 # Bowel Movements 0 Weight 158.757 kg GENERAL EXAM: Alert, weak, obese 55-year-old female, on room air, comfortable in no apparent distress. HEAD: Normocephalic. EYES: Normal reaction of pupils, equal size. NOSE: Clear with pink turbinates. THROAT: No erythema or exudates. NECK: No masses, no JVD. CHEST: No chest wall deformity. LUNGS: Equal air entry with no crackles, wheeze, rhonchi or dullness. CVS: S1 and S2 normal with no audible murmur, regular rhythm. ABDOMEN: No hepatosplenomegaly, normal bowel sounds, no guarding or rigidity. SPINE: No scoliosis or deformity SKIN: No rashes CENTRAL NERVOUS SYSTEM: No focal deficits, tone is normal in all 4 extremities. EXTREMITIES: There is no peripheral edema. No clubbing, no cyanosis. Peripheral pulses are intact. Results - Laboratory Findings CBC and BMP: 02/22/25 04:35 02/22/25 06:51 PT/INR, D-dimer PT 11.5 sec (10.0-12.5) 02/21/25 13:49 INR 1.0 (<1.2) 02/21/25 13:49 Abnormal lab findings: Abnormal Labs 02/21/25 02/21/25 02/21/25 13:47 13:49 13:49 WBC 26.75 H RBC 3.44 L Hgb 8.8 L Hct 25.9 L MCV 75.3 L MCH 25.6 L Plt Count 634 H MPV 8.9 L Immature Gran # 1.03 H Neutrophils # 24.01 H Lymphocytes # 0.85 L Sodium Chloride Carbon Dioxide BUN Creatinine Glucose POC Glucose (mg/dL) Osmolality 265 L Phosphorus 5.8 H Alkaline Phosphatase Albumin Lipase Urine Appearance Turbid H Urine Protein 1+ H Urine Blood Large H Urine Nitrite Positive H Ur Leukocyte Esterase Large H Urine RBC 59 H Urine WBC >182 H Urine WBC Clumps Many H Urine Bacteria Many H Urine Mucus Rare H Urine Osmolality 02/21/25 02/21/25 02/21/25 13:49 15:04 15:40 WBC RBC Hgb Hct MCV MCH Plt Count MPV Immature Gran # Neutrophils # Lymphocytes # Sodium 118 L* 118 L* Chloride 93 L 94 L Carbon Dioxide 10 L 12 L BUN 52 H 51 H Creatinine 2.96 H 2.79 H Glucose 103 H POC Glucose (mg/dL) Osmolality Phosphorus Alkaline Phosphatase 241 H Albumin 3.2 L Lipase 441 H Urine Appearance Urine Protein Urine Blood Urine Nitrite Ur Leukocyte Esterase Urine RBC Urine WBC Urine WBC Clumps Urine Bacteria Urine Mucus Urine Osmolality 252 L 02/21/25 02/21/25 02/21/25 18:59 21:10 23:44 WBC RBC Hgb Hct MCV MCH Plt Count MPV Immature Gran # Neutrophils # Lymphocytes # Sodium 119 L* 118 L* 120 L Chloride Carbon Dioxide BUN Creatinine Glucose POC Glucose (mg/dL) Osmolality Phosphorus Alkaline Phosphatase Albumin Lipase Urine Appearance Urine Protein Urine Blood Urine Nitrite Ur Leukocyte Esterase Urine RBC Urine WBC Urine WBC Clumps Urine Bacteria Urine Mucus Urine Osmolality 02/22/25 02/22/25 02/22/25 02:48 04:35 04:35 WBC 21.74 H RBC 3.23 L Hgb 8.2 L Hct 24.8 L MCV 76.8 L MCH 25.4 L Plt Count 591 H MPV 8.7 L Immature Gran # 0.80 H Neutrophils # 18.69 H Lymphocytes # Sodium 121 L 123 L Chloride Carbon Dioxide 6 L* BUN 54 H Creatinine 2.72 H Glucose 55 L POC Glucose (mg/dL) Osmolality Phosphorus Alkaline Phosphatase Albumin Lipase Urine Appearance Urine Protein Urine Blood Urine Nitrite Ur Leukocyte Esterase Urine RBC Urine WBC Urine WBC Clumps Urine Bacteria Urine Mucus Urine Osmolality 02/22/25 02/22/25 02/22/25 04:35 06:15 06:51 WBC RBC Hgb Hct MCV MCH Plt Count MPV Immature Gran # Neutrophils # Lymphocytes # Sodium 121 L 122 L Chloride Carbon Dioxide BUN Creatinine Glucose POC Glucose (mg/dL) 48 L* Osmolality Phosphorus Alkaline Phosphatase Albumin Lipase Urine Appearance Urine Protein Urine Blood Urine Nitrite Ur Leukocyte Esterase Urine RBC Urine WBC Urine WBC Clumps Urine Bacteria Urine Mucus Urine Osmolality 02/22/25 09:59 WBC RBC Hgb Hct MCV MCH Plt Count MPV Immature Gran # Neutrophils # Lymphocytes # Sodium Chloride Carbon Dioxide BUN Creatinine Glucose POC Glucose (mg/dL) 65 L Osmolality Phosphorus Alkaline Phosphatase Albumin Lipase Urine Appearance Urine Protein Urine Blood Urine Nitrite Ur Leukocyte Esterase Urine RBC Urine WBC Urine WBC Clumps Urine Bacteria Urine Mucus Urine Osmolality - Diagnostic Findings Chest x-ray: image reviewed Assessment and Plan Assessment: Hyponatremia with generalized weakness secondary to 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 and poor oral intake Malignant melanoma with metastatic disease to the liver and lymph nodes Acute kidney injury secondary to ATN from hypotension Metabolic acidosis secondary to above Leukocytosis Anemia Diabetes mellitus type 2 History of UTIs History of hypertension Hyperlipidemia Plan: The patient was seen and evaluated Chest x-ray, labs and medications reviewed Currently off the 3% normal saline Follow-up sodium levels are pending Currently off norepinephrine Continue with cefazolin Anticoagulated with Eliquis Continued on a bicarb drip at 75 mL/h Nephrology is consulted Metformin and Cozaar on hold Currently stable and on room air oxygen We will continue to follow and make further recommendations based on her clinical status I have personally seen and examined the patient, performed the documentation and the assessment and plan as written. Number of minutes spent on the visit: 20 Dictation was produced using [employer] dictation software. Please excuse any grammatical, word or spelling errors. Time with Patient: Greater than 30
[2025-02-22] MEDS: DEXTROSE 5% IN WATER 1,000 ML IV ONE ×3 (11:03→22:33)
[2025-02-22 11:43] LABS: Glucose,Whole Blood 68 mg/dL (70-110)
[2025-02-22 11:45] LABS: % Iron Saturation 7.36 (12.00-45.00); Iron 17 UG/DL (50-170); Total Iron Binding Capacity 231 UG/DL (228-460)
[2025-02-22] MEDS: HYDROmorphone 0.5 MG/0.5 ML SYRINGE IVP PRN (12:20)
[2025-02-22 12:50] LABS: Glucose,Whole Blood 102 mg/dL (70-110)
--- NOTE | 2025-02-22 14:27 | P.CONS ---
History of Present Illness - Reason for Consult Consult date: 02/22/25 melanoma Requesting physician: Izabella Simmons - Chief Complaint Abnormal labs, weakness - History of Present Illness Ms. Acosta is a very pleasant 55-year-old female with a history of multiple comorbidities including metastatic malignant melanoma, follows with Dr. Botello, who is here from oncology office for abnormal labs. She has been having generalized weakness. Blood work revealed WBC 26, hemoglobin 8.8, platelets 634, sodium 118, creatinine 2.9 (baseline 1) with low osmolality of 265. Lactate normal. TSH normal. Influenza, RSV, and COVID negative. BNP elevated at 2300. She was admitted to ICU on levophed which has since been weaned off. Na now better at 122. Iron panel consistent with anemia of chronic disease in addition to low iron stores with 7% saturation. CXR negative. Renal US normal. She was recently started on dual immunotherapy with Opdualag, received 3rd infusion on 02/17/25. She has been having persistent vaginal bleeding and slowly increasing weakness, with poor appetite and oral intake for several weeks. In clinic, labs reviewed, Na downtrending over past couple months, to 120's, and Cr 1.6 prior to admission. Oncologic History: Follows with Dr. Botello for metastatic melanoma The patient had developed some vaginal spotting in mid 2023. her last menstrual cycle was in her 30s. Associated with this, she had noted some discomfort in the right lower pelvic area, with subsequent development of a lump in the pudendal area. he also had episodes of "spraying of the urine". She was seen by her primary care physician and was found to have an abnormality involving the vulva. She was then referred to [facility]. On their exam she was found to have a large mass with necrosis, involving the vulva, with extension to the urethral meatus. The patient had a biopsy of 09/25/24 revealing malignant melanoma with necrosis with lesion being present at the tissue edges. transvaginal ultrasound on 09/02/24 had shown no major findings. She was seen by [facility] oncology, and had a PET scan ordered, and was also referred to the melanoma clinic at the [facility]. Unfortunately the PET scan showed evidence of metastatic disease, with intense activity at the primary site, prominent to large wide excision lymph nodes in the abdomen, pelvis and inguinal regions, as well as numerous hypermetabolic lesions in the liver consistent with metastatic disease. There was also focal activity at L1, as well as to the right of the sacrum, and the left of the coccyx, which were felt to represent metastatic lesions. The patient was seen by Dr. Knutson at the melanoma clinic, and systemic therapy with immunotherapy combination was recommended. The patient wanted to have treatment closer to home due to which she was referred to our clinic. The patient is being seen for a new diagnosis of malignant melanoma arising from the vulva, which is unfortunately metastatic at presentation. She was recommended to be started on double immunotherapy with Opdualag, which she started and has completed 3 cycles of so far. Prior auth and financial black tance has been obtained and plan to initiate treatment soon. MRI brain obtained on 11/16/2024 was negative for metastatic disease. Past Medical History Past Medical History: Cancer, Diabetes Mellitus, GERD/Reflux, Hyperlipidemia, Hypertension, Osteoarthritis (OA) Additional Past Medical History / Comment(s): SVT. ALLERGIES. NEUROPATHY IN FEET. 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 Past Psychological History: Depression Smoking Status: Former smoker Past Alcohol Use History: Occasional Past Drug Use History: None Reported - Past Family History Mother Family Medical History: Cancer, Deep Vein Thrombosis (DVT) Additional Family Medical History / Comment(s): RENAL CA Brother(s) Family Medical History: Deep Vein Thrombosis (DVT) Medications and Allergies Home Medications Medication Instructions Recorded Confirmed Type Pantoprazole Sodium [Protonix] 40 mg PO DAILY 07/19/17 02/21/25 History gemfibroziL [Lopid] 600 mg PO DAILY 07/19/17 02/21/25 History Metoprolol Succinate (ER) [Toprol 50 mg PO HS 11/22/23 02/21/25 History XL] Spironolactone 25 mg PO DAILY 11/22/23 02/21/25 History buPROPion XL [Wellbutrin XL] 150 mg PO DAILY 11/22/23 02/21/25 History dilTIAZem HCL [dilTIAZem HCL 24Hr 120 mg PO HS 11/22/23 02/21/25 History ER (CD)] Gabapentin 600 mg PO BID 12/02/24 02/21/25 History Insulin Glargine/Lixisenatide 60 units SQ AC-BRKFST 12/24/24 02/21/25 History [Soliqua 100 Unit-33 Mcg/ml Pen] Losartan [Cozaar] 50 mg PO DAILY 12/24/24 02/21/25 History Sertraline [Zoloft] 50 mg PO HS 12/24/24 02/21/25 History Apixaban [Eliquis] 2.5 mg PO BID #60 tab 01/03/25 02/21/25 Rx Gabapentin [Neurontin] 300 mg PO BID 02/21/25 02/21/25 History Nystatin [Nystop] 1 applic TOPICAL TID PRN 02/21/25 02/21/25 History Ondansetron [Zofran] 4 mg PO DAILY 02/21/25 02/21/25 History Rosuvastatin [Crestor] 10 mg PO HS 02/21/25 02/21/25 History metFORMIN HCL [Glucophage] 500 mg PO DAILY 02/21/25 02/21/25 History Allergies Allergy/AdvReac Type Severity Reaction Status Date / Time benazepril Allergy "throat Verified 02/21/25 15:31 closing" hydrocodone [From Vicodin] AdvReac Nausea & Verified 02/21/25 15:31 Vomiting Physical Exam Vitals: Vital Signs Temp Pulse Pulse Resp BP BP Pulse Ox 02/22/25 11:30 70 18 107/53 99 02/22/25 11:00 66 18 99 02/22/25 10:30 67 16 111/42 99 02/22/25 10:00 71 14 96/52 97 02/22/25 09:45 70 14 94/51 98 02/22/25 09:30 67 16 96/51 100 02/22/25 09:15 67 14 93/63 98 02/22/25 09:00 71 18 116/63 02/22/25 08:45 71 14 106/51 100 02/22/25 08:30 63 14 89/55 95 02/22/25 08:15 62 18 106/49 02/22/25 08:00 97.5 F L 63 16 99/49 100 02/22/25 07:45 64 16 90/43 99 02/22/25 07:30 62 18 83/45 100 02/22/25 07:15 63 18 79/43 100 02/22/25 07:00 65 18 88/48 100 02/22/25 06:45 63 18 105/44 99 02/22/25 06:30 65 17 98/43 99 02/22/25 06:15 65 19 94/59 100 02/22/25 06:00 64 26 H 113/56 99 02/22/25 05:45 68 14 94/33 100 02/22/25 05:30 62 18 117/57 99 02/22/25 05:15 62 12 107/32 98 02/22/25 05:00 63 12 113/46 93 L 02/22/25 04:45 64 11 L 112/47 98 02/22/25 04:30 63 9 L 106/59 100 02/22/25 04:15 62 9 L 108/55 99 02/22/25 04:00 97.5 F L 62 8 L 104/53 99 02/22/25 03:45 61 8 L 93/61 99 02/22/25 03:30 60 8 L 105/54 99 02/22/25 03:15 60 8 L 93/50 99 02/22/25 03:00 60 9 L 105/64 99 02/22/25 02:45 62 9 L 93/49 99 02/22/25 02:30 61 11 L 93/49 99 02/22/25 02:15 59 L 8 L 100/51 99 02/22/25 02:00 58 L 8 L 103/49 99 02/22/25 01:45 60 8 L 117/60 99 02/22/25 01:30 61 9 L 118/56 97 02/22/25 01:15 69 11 L 84/45 96 02/22/25 01:00 60 11 L 80/42 99 02/22/25 00:45 60 9 L 91/50 98 02/22/25 00:30 59 L 18 87/55 99 02/22/25 00:15 61 16 105/47 99 02/22/25 00:00 97.4 F L 62 18 106/53 100 02/21/25 23:45 61 16 104/64 100 02/21/25 23:30 62 14 111/60 99 02/21/25 23:15 61 16 111/60 100 02/21/25 23:00 59 L 16 119/68 96 02/21/25 22:45 64 14 112/70 98 02/21/25 22:41 68 19 112/70 96 02/21/25 22:21 75/39 02/21/25 22:15 75/44 02/21/25 20:00 97.4 F L 99 20 78/47 99 02/21/25 19:05 20 02/21/25 18:26 65 18 125/65 100 02/21/25 17:22 98.9 F 54 L 18 102/55 99 02/21/25 16:53 53 L 18 105/56 98 02/21/25 14:46 97.8 F 65 18 121/58 100 02/21/25 13:08 97.0 F L 59 L 18 106/68 91 L Intake and Output 02/21/25 02/22/25 02/22/25 22:59 06:59 14:59 Intake Total 776.272 445 Output Total 500 0 Balance 276.272 445 Intake: IV 175 50 Sodium Chloride 3%( 175 50 Hypertonic) 500 ml @ 25 mls/hr IV .Q20H ONE Rx#: [id number] Intake, IV Titration 121.272 275 Amount Norepinephrine 4 mg In 71.272 Sodium Chloride 0.9% 250 ml @ 0.03 MCG/KG/MIN 18. 146 mls/hr IV .Q14H LULU Rx#:[id number] Sodium Chloride 0.45% 1, 225 000 ml @ 75 mls/hr IV . [id number] LULU with Sodium Bicarb (1 Meq/ml) 100 ml Rx#:[id number] ceFAZolin 2 gm In 50 50 Dextrose 5% in Water 50 ml @ 100 mls/hr IVPB Q12HR LULU Rx#:[id number] Oral 480 120 Output: Urine 500 0 Other: Voiding Method External Catheter # Voids 1 1 # Bowel Movements 0 Weight 158.757 kg Patient is in no acute distress. No jaundice. No respiratory distress. Results CBC & Chem 7: 02/22/25 04:35 02/22/25 12:00 Labs: Abnormal Lab Results - Last 24 Hours (Table) 02/21/25 02/21/25 02/21/25 Range/Units 13:47 13:49 13:49 WBC 26.75 H (4.50-10.00) 10*3/uL RBC 3.44 L (4.10-5.20) 10*6/uL Hgb 8.8 L (12.0-15.0) g/dL Hct 25.9 L (37.2-46.3) % MCV 75.3 L (80.0-97.0) fL MCH 25.6 L (27.0-32.0) pg Plt Count 634 H (140-440) 10*3/uL MPV 8.9 L (9.5-12.2) fL Immature Gran # 1.03 H (0.00-0.04) 10*3/uL Neutrophils # 24.01 H (1.80-7.70) 10*3/uL Lymphocytes # 0.85 L (0.90-5.00) 10*3/uL Sodium (137-145) mmol/L Chloride (98-107) mmol/L Carbon Dioxide (22-30) mmol/L BUN (7-17) mg/dL Creatinine (0.52-1.04) mg/dL Glucose (74-99) mg/dL POC Glucose (mg/dL) (70-110) mg/dL Osmolality 265 L (275-295) mOsm/kg Phosphorus 5.8 H (2.5-4.5) mg/dL Iron (50-170) UG/DL % Saturation (12.00-45.00) Transferrin (204.0-354.0) mg/dL Ferritin (10.0-291.0) ng/mL Alkaline Phosphatase (38-126) U/L Albumin (3.5-5.0) g/dL Lipase (23-300) U/L Vitamin B12 (200.0-944.0) pg/mL Urine Appearance Turbid H (Clear) Urine Protein 1+ H (Negative) Urine Blood Large H (Negative) Urine Nitrite Positive H (Negative) Ur Leukocyte Esterase Large H (Negative) Urine RBC 59 H (0-5) /hpf Urine WBC >182 H (0-5) /hpf Urine WBC Clumps Many H (None) /hpf Urine Bacteria Many H (None) /hpf Urine Mucus Rare H (None) /hpf Urine Osmolality (400-1100) mOsm/kg 02/21/25 02/21/25 02/21/25 Range/Units 13:49 15:04 15:40 WBC (4.50-10.00) 10*3/uL RBC (4.10-5.20) 10*6/uL Hgb (12.0-15.0) g/dL Hct (37.2-46.3) % MCV (80.0-97.0) fL MCH (27.0-32.0) pg Plt Count (140-440) 10*3/uL MPV (9.5-12.2) fL Immature Gran # (0.00-0.04) 10*3/uL Neutrophils # (1.80-7.70) 10*3/uL Lymphocytes # (0.90-5.00) 10*3/uL Sodium 118 L* 118 L* (137-145) mmol/L Chloride 93 L 94 L (98-107) mmol/L Carbon Dioxide 10 L 12 L (22-30) mmol/L BUN 52 H 51 H (7-17) mg/dL Creatinine 2.96 H 2.79 H (0.52-1.04) mg/dL Glucose 103 H (74-99) mg/dL POC Glucose (mg/dL) (70-110) mg/dL Osmolality (275-295) mOsm/kg Phosphorus (2.5-4.5) mg/dL Iron (50-170) UG/DL % Saturation (12.00-45.00) Transferrin (204.0-354.0) mg/dL Ferritin (10.0-291.0) ng/mL Alkaline Phosphatase 241 H (38-126) U/L Albumin 3.2 L (3.5-5.0) g/dL Lipase 441 H (23-300) U/L Vitamin B12 (200.0-944.0) pg/mL Urine Appearance (Clear) Urine Protein (Negative) Urine Blood (Negative) Urine Nitrite (Negative) Ur Leukocyte Esterase (Negative) Urine RBC (0-5) /hpf Urine WBC (0-5) /hpf Urine WBC Clumps (None) /hpf Urine Bacteria (None) /hpf Urine Mucus (None) /hpf Urine Osmolality 252 L (400-1100) mOsm/kg 02/21/25 02/21/25 02/21/25 Range/Units 18:59 21:10 23:44 WBC (4.50-10.00) 10*3/uL RBC (4.10-5.20) 10*6/uL Hgb (12.0-15.0) g/dL Hct (37.2-46.3) % MCV (80.0-97.0) fL MCH (27.0-32.0) pg Plt Count (140-440) 10*3/uL MPV (9.5-12.2) fL Immature Gran # (0.00-0.04) 10*3/uL Neutrophils # (1.80-7.70) 10*3/uL Lymphocytes # (0.90-5.00) 10*3/uL Sodium 119 L* 118 L* 120 L (137-145) mmol/L Chloride (98-107) mmol/L Carbon Dioxide (22-30) mmol/L BUN (7-17) mg/dL Creatinine (0.52-1.04) mg/dL Glucose (74-99) mg/dL POC Glucose (mg/dL) (70-110) mg/dL Osmolality (275-295) mOsm/kg Phosphorus (2.5-4.5) mg/dL Iron (50-170) UG/DL % Saturation (12.00-45.00) Transferrin (204.0-354.0) mg/dL Ferritin (10.0-291.0) ng/mL Alkaline Phosphatase (38-126) U/L Albumin (3.5-5.0) g/dL Lipase (23-300) U/L Vitamin B12 (200.0-944.0) pg/mL Urine Appearance (Clear) Urine Protein (Negative) Urine Blood (Negative) Urine Nitrite (Negative) Ur Leukocyte Esterase (Negative) Urine RBC (0-5) /hpf Urine WBC (0-5) /hpf Urine WBC Clumps (None) /hpf Urine Bacteria (None) /hpf Urine Mucus (None) /hpf Urine Osmolality (400-1100) mOsm/kg 02/22/25 02/22/25 02/22/25 Range/Units 02:48 04:35 04:35 WBC 21.74 H (4.50-10.00) 10*3/uL RBC 3.23 L (4.10-5.20) 10*6/uL Hgb 8.2 L (12.0-15.0) g/dL Hct 24.8 L (37.2-46.3) % MCV 76.8 L (80.0-97.0) fL MCH 25.4 L (27.0-32.0) pg Plt Count 591 H (140-440) 10*3/uL MPV 8.7 L (9.5-12.2) fL Immature Gran # 0.80 H (0.00-0.04) 10*3/uL Neutrophils # 18.69 H (1.80-7.70) 10*3/uL Lymphocytes # (0.90-5.00) 10*3/uL Sodium 121 L 123 L (137-145) mmol/L Chloride (98-107) mmol/L Carbon Dioxide 6 L* (22-30) mmol/L BUN 54 H (7-17) mg/dL Creatinine 2.72 H (0.52-1.04) mg/dL Glucose 55 L (74-99) mg/dL POC Glucose (mg/dL) (70-110) mg/dL Osmolality (275-295) mOsm/kg Phosphorus (2.5-4.5) mg/dL Iron 17 L (50-170) UG/DL % Saturation 7.36 L (12.00-45.00) Transferrin 165.0 L (204.0-354.0) mg/dL Ferritin 501.0 H (10.0-291.0) ng/mL Alkaline Phosphatase (38-126) U/L Albumin (3.5-5.0) g/dL Lipase (23-300) U/L Vitamin B12 3177.0 H (200.0-944.0) pg/mL Urine Appearance (Clear) Urine Protein (Negative) Urine Blood (Negative) Urine Nitrite (Negative) Ur Leukocyte Esterase (Negative) Urine RBC (0-5) /hpf Urine WBC (0-5) /hpf Urine WBC Clumps (None) /hpf Urine Bacteria (None) /hpf Urine Mucus (None) /hpf Urine Osmolality (400-1100) mOsm/kg 02/22/25 02/22/25 02/22/25 Range/Units 04:35 06:15 06:51 WBC (4.50-10.00) 10*3/uL RBC (4.10-5.20) 10*6/uL Hgb (12.0-15.0) g/dL Hct (37.2-46.3) % MCV (80.0-97.0) fL MCH (27.0-32.0) pg Plt Count (140-440) 10*3/uL MPV (9.5-12.2) fL Immature Gran # (0.00-0.04) 10*3/uL Neutrophils # (1.80-7.70) 10*3/uL Lymphocytes # (0.90-5.00) 10*3/uL Sodium 121 L 122 L (137-145) mmol/L Chloride (98-107) mmol/L Carbon Dioxide (22-30) mmol/L BUN (7-17) mg/dL Creatinine (0.52-1.04) mg/dL Glucose (74-99) mg/dL POC Glucose (mg/dL) 48 L* (70-110) mg/dL Osmolality (275-295) mOsm/kg Phosphorus (2.5-4.5) mg/dL Iron (50-170) UG/DL % Saturation (12.00-45.00) Transferrin (204.0-354.0) mg/dL Ferritin (10.0-291.0) ng/mL Alkaline Phosphatase (38-126) U/L Albumin (3.5-5.0) g/dL Lipase (23-300) U/L Vitamin B12 (200.0-944.0) pg/mL Urine Appearance (Clear) Urine Protein (Negative) Urine Blood (Negative) Urine Nitrite (Negative) Ur Leukocyte Esterase (Negative) Urine RBC (0-5) /hpf Urine WBC (0-5) /hpf Urine WBC Clumps (None) /hpf Urine Bacteria (None) /hpf Urine Mucus (None) /hpf Urine Osmolality (400-1100) mOsm/kg 02/22/25 02/22/25 02/22/25 Range/Units 09:59 10:02 11:41 WBC (4.50-10.00) 10*3/uL RBC (4.10-5.20) 10*6/uL Hgb (12.0-15.0) g/dL Hct (37.2-46.3) % MCV (80.0-97.0) fL MCH (27.0-32.0) pg Plt Count (140-440) 10*3/uL MPV (9.5-12.2) fL Immature Gran # (0.00-0.04) 10*3/uL Neutrophils # (1.80-7.70) 10*3/uL Lymphocytes # (0.90-5.00) 10*3/uL Sodium 126 L (137-145) mmol/L Chloride (98-107) mmol/L Carbon Dioxide (22-30) mmol/L BUN (7-17) mg/dL Creatinine (0.52-1.04) mg/dL Glucose (74-99) mg/dL POC Glucose (mg/dL) 65 L 68 L (70-110) mg/dL Osmolality (275-295) mOsm/kg Phosphorus (2.5-4.5) mg/dL Iron (50-170) UG/DL % Saturation (12.00-45.00) Transferrin (204.0-354.0) mg/dL Ferritin (10.0-291.0) ng/mL Alkaline Phosphatase (38-126) U/L Albumin (3.5-5.0) g/dL Lipase (23-300) U/L Vitamin B12 (200.0-944.0) pg/mL Urine Appearance (Clear) Urine Protein (Negative) Urine Blood (Negative) Urine Nitrite (Negative) Ur Leukocyte Esterase (Negative) Urine RBC (0-5) /hpf Urine WBC (0-5) /hpf Urine WBC Clumps (None) /hpf Urine Bacteria (None) /hpf Urine Mucus (None) /hpf Urine Osmolality (400-1100) mOsm/kg Chest x-ray: report reviewed US - abdomen: report reviewed Assessment and Plan Assessment: 1. Severe hyponatremia 2. LISSETTE 3. Anemia 4. Metastatic malignant melanoma 5. Dehydration Plan: Ms. Acosta is a very pleasant 55-year-old female with multiple comorbidities including malignant metastatic melanoma, recently started on dual immunotherapy with Opdualag, status post cycle 3 on 02/17/2025 who is here for abnormal labs and slowly worsening symptoms of weakness. She has had significantly decreased oral intake. Also with persistent vaginal bleeding from her melanoma. Found to have severe hyponatremia, LISSETTE, and elevated BNP. She was admitted to the ICU for close monitoring and correction of her hyponatremia. On pressors. - Severe hyponatremia possibly due to SIADH, slowly improving - LISSETTE improving - Nephrology on board, pulm/CC on board - TSH normal, will obtain cortisol level as well to rule out adrenal insufficiency from immunotherapy however less likely - Monitor CBC Discussed with patient she is agreeable to plan. All of her questions were answered.
--- NOTE | 2025-02-22 14:53 | P.PN ---
Subjective Progress Note Date: 02/22/25 Principal diagnosis: Reason for follow-up is sepsis and UTI Patient is a 55-year-old female with a past medical history significant for stage IV malignant melanoma on chemo, Diabetes Mellitus, GERD/Reflux, Hyperlipidemia, Hypertension, Osteoarthritis (OA) presenting to the hospital for evaluation of generalized weakness did have urinary symptoms a positive UA concerning for symptomatic UTI with sepsis requiring admission by ICU. On today's evaluation that is 02/22/2025, patient did not have any fever and denies any chills, patient is breathing comfortably on room air, patient with no chest pain or cough patient did not have any abdominal pain nausea vomiting or any loose stools. Patient white count is down to 21.74 creatinine is 2.72 cultures are pending Objective - Vital Signs Vital signs: Vital Signs Temp 97.7 F 02/22/25 12:00 Pulse 69 02/22/25 13:00 Resp 14 02/22/25 13:00 BP 106/52 02/22/25 13:00 Pulse Ox 98 02/22/25 13:00 FiO2 Intake & Output 02/21/25 02/22/25 02/22/25 18:59 06:59 18:59 Intake Total 776.272 445 Output Total 500 0 Balance 276.272 445 Weight 158.757 kg Intake: IV 175 50 Sodium Chloride 3%( 175 50 Hypertonic) 500 ml @ 25 mls/hr IV .Q20H ONE Rx#: [id number] Intake, IV Titration 121.272 275 Amount Norepinephrine 4 mg In 71.272 0 Sodium Chloride 0.9% 250 ml @ 0.03 MCG/KG/MIN 18. 146 mls/hr IV .Q14H [facility] Rx#:[id number] Sodium Chloride 0.45% 1, 225 000 ml @ 75 mls/hr IV . [id number] [facility] with Sodium Bicarb (1 Meq/ml) 100 ml Rx#:[id number] ceFAZolin 2 gm In 50 50 Dextrose 5% in Water 50 ml @ 100 mls/hr IVPB Q12HR [facility] Rx#:[id number] Oral 480 120 Output: Urine 500 0 Other: Voiding Method External Catheter # Voids 1 1 # Bowel Movements 0 - Exam GENERAL DESCRIPTION: A middle-age female lying in bed in no distress RESPIRATORY SYSTEM: Unlabored breathing , decreased breath sounds at bases HEART: S1 S2 regular rate and rhythm , ABDOMEN: Soft , no tenderness EXTREMITIES: No edema feet - Labs CBC & Chem 7: 02/22/25 04:35 02/22/25 12:00 Labs: Abnormal Lab Results - Last 24 Hours (Table) 02/21/25 02/21/25 02/21/25 Range/Units 13:47 13:49 13:49 WBC 26.75 H (4.50-10.00) 10*3/uL RBC 3.44 L (4.10-5.20) 10*6/uL Hgb 8.8 L (12.0-15.0) g/dL Hct 25.9 L (37.2-46.3) % MCV 75.3 L (80.0-97.0) fL MCH 25.6 L (27.0-32.0) pg Plt Count 634 H (140-440) 10*3/uL MPV 8.9 L (9.5-12.2) fL Immature Gran # 1.03 H (0.00-0.04) 10*3/uL Neutrophils # 24.01 H (1.80-7.70) 10*3/uL Lymphocytes # 0.85 L (0.90-5.00) 10*3/uL Sodium (137-145) mmol/L Chloride (98-107) mmol/L Carbon Dioxide (22-30) mmol/L BUN (7-17) mg/dL Creatinine (0.52-1.04) mg/dL Glucose (74-99) mg/dL POC Glucose (mg/dL) (70-110) mg/dL Osmolality 265 L (275-295) mOsm/kg Phosphorus 5.8 H (2.5-4.5) mg/dL Iron (50-170) UG/DL % Saturation (12.00-45.00) Transferrin (204.0-354.0) mg/dL Ferritin (10.0-291.0) ng/mL Alkaline Phosphatase (38-126) U/L Albumin (3.5-5.0) g/dL Lipase (23-300) U/L Vitamin B12 (200.0-944.0) pg/mL Urine Appearance Turbid H (Clear) Urine Protein 1+ H (Negative) Urine Blood Large H (Negative) Urine Nitrite Positive H (Negative) Ur Leukocyte Esterase Large H (Negative) Urine RBC 59 H (0-5) /hpf Urine WBC >182 H (0-5) /hpf Urine WBC Clumps Many H (None) /hpf Urine Bacteria Many H (None) /hpf Urine Mucus Rare H (None) /hpf Urine Osmolality (400-1100) mOsm/kg 02/21/25 02/21/25 02/21/25 Range/Units 13:49 15:04 15:40 WBC (4.50-10.00) 10*3/uL RBC (4.10-5.20) 10*6/uL Hgb (12.0-15.0) g/dL Hct (37.2-46.3) % MCV (80.0-97.0) fL MCH (27.0-32.0) pg Plt Count (140-440) 10*3/uL MPV (9.5-12.2) fL Immature Gran # (0.00-0.04) 10*3/uL Neutrophils # (1.80-7.70) 10*3/uL Lymphocytes # (0.90-5.00) 10*3/uL Sodium 118 L* 118 L* (137-145) mmol/L Chloride 93 L 94 L (98-107) mmol/L Carbon Dioxide 10 L 12 L (22-30) mmol/L BUN 52 H 51 H (7-17) mg/dL Creatinine 2.96 H 2.79 H (0.52-1.04) mg/dL Glucose 103 H (74-99) mg/dL POC Glucose (mg/dL) (70-110) mg/dL Osmolality (275-295) mOsm/kg Phosphorus (2.5-4.5) mg/dL Iron (50-170) UG/DL % Saturation (12.00-45.00) Transferrin (204.0-354.0) mg/dL Ferritin (10.0-291.0) ng/mL Alkaline Phosphatase 241 H (38-126) U/L Albumin 3.2 L (3.5-5.0) g/dL Lipase 441 H (23-300) U/L Vitamin B12 (200.0-944.0) pg/mL Urine Appearance (Clear) Urine Protein (Negative) Urine Blood (Negative) Urine Nitrite (Negative) Ur Leukocyte Esterase (Negative) Urine RBC (0-5) /hpf Urine WBC (0-5) /hpf Urine WBC Clumps (None) /hpf Urine Bacteria (None) /hpf Urine Mucus (None) /hpf Urine Osmolality 252 L (400-1100) mOsm/kg 02/21/25 02/21/25 02/21/25 Range/Units 18:59 21:10 23:44 WBC (4.50-10.00) 10*3/uL RBC (4.10-5.20) 10*6/uL Hgb (12.0-15.0) g/dL Hct (37.2-46.3) % MCV (80.0-97.0) fL MCH (27.0-32.0) pg Plt Count (140-440) 10*3/uL MPV (9.5-12.2) fL Immature Gran # (0.00-0.04) 10*3/uL Neutrophils # (1.80-7.70) 10*3/uL Lymphocytes # (0.90-5.00) 10*3/uL Sodium 119 L* 118 L* 120 L (137-145) mmol/L Chloride (98-107) mmol/L Carbon Dioxide (22-30) mmol/L BUN (7-17) mg/dL Creatinine (0.52-1.04) mg/dL Glucose (74-99) mg/dL POC Glucose (mg/dL) (70-110) mg/dL Osmolality (275-295) mOsm/kg Phosphorus (2.5-4.5) mg/dL Iron (50-170) UG/DL % Saturation (12.00-45.00) Transferrin (204.0-354.0) mg/dL Ferritin (10.0-291.0) ng/mL Alkaline Phosphatase (38-126) U/L Albumin (3.5-5.0) g/dL Lipase (23-300) U/L Vitamin B12 (200.0-944.0) pg/mL Urine Appearance (Clear) Urine Protein (Negative) Urine Blood (Negative) Urine Nitrite (Negative) Ur Leukocyte Esterase (Negative) Urine RBC (0-5) /hpf Urine WBC (0-5) /hpf Urine WBC Clumps (None) /hpf Urine Bacteria (None) /hpf Urine Mucus (None) /hpf Urine Osmolality (400-1100) mOsm/kg 02/22/25 02/22/25 02/22/25 Range/Units 02:48 04:35 04:35 WBC 21.74 H (4.50-10.00) 10*3/uL RBC 3.23 L (4.10-5.20) 10*6/uL Hgb 8.2 L (12.0-15.0) g/dL Hct 24.8 L (37.2-46.3) % MCV 76.8 L (80.0-97.0) fL MCH 25.4 L (27.0-32.0) pg Plt Count 591 H (140-440) 10*3/uL MPV 8.7 L (9.5-12.2) fL Immature Gran # 0.80 H (0.00-0.04) 10*3/uL Neutrophils # 18.69 H (1.80-7.70) 10*3/uL Lymphocytes # (0.90-5.00) 10*3/uL Sodium 121 L 123 L (137-145) mmol/L Chloride (98-107) mmol/L Carbon Dioxide 6 L* (22-30) mmol/L BUN 54 H (7-17) mg/dL Creatinine 2.72 H (0.52-1.04) mg/dL Glucose 55 L (74-99) mg/dL POC Glucose (mg/dL) (70-110) mg/dL Osmolality (275-295) mOsm/kg Phosphorus (2.5-4.5) mg/dL Iron 17 L (50-170) UG/DL % Saturation 7.36 L (12.00-45.00) Transferrin 165.0 L (204.0-354.0) mg/dL Ferritin 501.0 H (10.0-291.0) ng/mL Alkaline Phosphatase (38-126) U/L Albumin (3.5-5.0) g/dL Lipase (23-300) U/L Vitamin B12 3177.0 H (200.0-944.0) pg/mL Urine Appearance (Clear) Urine Protein (Negative) Urine Blood (Negative) Urine Nitrite (Negative) Ur Leukocyte Esterase (Negative) Urine RBC (0-5) /hpf Urine WBC (0-5) /hpf Urine WBC Clumps (None) /hpf Urine Bacteria (None) /hpf Urine Mucus (None) /hpf Urine Osmolality (400-1100) mOsm/kg 02/22/25 02/22/25 02/22/25 Range/Units 04:35 06:15 06:51 WBC (4.50-10.00) 10*3/uL RBC (4.10-5.20) 10*6/uL Hgb (12.0-15.0) g/dL Hct (37.2-46.3) % MCV (80.0-97.0) fL MCH (27.0-32.0) pg Plt Count (140-440) 10*3/uL MPV (9.5-12.2) fL Immature Gran # (0.00-0.04) 10*3/uL Neutrophils # (1.80-7.70) 10*3/uL Lymphocytes # (0.90-5.00) 10*3/uL Sodium 121 L 122 L (137-145) mmol/L Chloride (98-107) mmol/L Carbon Dioxide (22-30) mmol/L BUN (7-17) mg/dL Creatinine (0.52-1.04) mg/dL Glucose (74-99) mg/dL POC Glucose (mg/dL) 48 L* (70-110) mg/dL Osmolality (275-295) mOsm/kg Phosphorus (2.5-4.5) mg/dL Iron (50-170) UG/DL % Saturation (12.00-45.00) Transferrin (204.0-354.0) mg/dL Ferritin (10.0-291.0) ng/mL Alkaline Phosphatase (38-126) U/L Albumin (3.5-5.0) g/dL Lipase (23-300) U/L Vitamin B12 (200.0-944.0) pg/mL Urine Appearance (Clear) Urine Protein (Negative) Urine Blood (Negative) Urine Nitrite (Negative) Ur Leukocyte Esterase (Negative) Urine RBC (0-5) /hpf Urine WBC (0-5) /hpf Urine WBC Clumps (None) /hpf Urine Bacteria (None) /hpf Urine Mucus (None) /hpf Urine Osmolality (400-1100) mOsm/kg 02/22/25 02/22/25 02/22/25 Range/Units 09:59 10:02 11:41 WBC (4.50-10.00) 10*3/uL RBC (4.10-5.20) 10*6/uL Hgb (12.0-15.0) g/dL Hct (37.2-46.3) % MCV (80.0-97.0) fL MCH (27.0-32.0) pg Plt Count (140-440) 10*3/uL MPV (9.5-12.2) fL Immature Gran # (0.00-0.04) 10*3/uL Neutrophils # (1.80-7.70) 10*3/uL Lymphocytes # (0.90-5.00) 10*3/uL Sodium 126 L (137-145) mmol/L Chloride (98-107) mmol/L Carbon Dioxide (22-30) mmol/L BUN (7-17) mg/dL Creatinine (0.52-1.04) mg/dL Glucose (74-99) mg/dL POC Glucose (mg/dL) 65 L 68 L (70-110) mg/dL Osmolality (275-295) mOsm/kg Phosphorus (2.5-4.5) mg/dL Iron (50-170) UG/DL % Saturation (12.00-45.00) Transferrin (204.0-354.0) mg/dL Ferritin (10.0-291.0) ng/mL Alkaline Phosphatase (38-126) U/L Albumin (3.5-5.0) g/dL Lipase (23-300) U/L Vitamin B12 (200.0-944.0) pg/mL Urine Appearance (Clear) Urine Protein (Negative) Urine Blood (Negative) Urine Nitrite (Negative) Ur Leukocyte Esterase (Negative) Urine RBC (0-5) /hpf Urine WBC (0-5) /hpf Urine WBC Clumps (None) /hpf Urine Bacteria (None) /hpf Urine Mucus (None) /hpf Urine Osmolality (400-1100) mOsm/kg 02/22/25 Range/Units 12:00 WBC (4.50-10.00) 10*3/uL RBC (4.10-5.20) 10*6/uL Hgb (12.0-15.0) g/dL Hct (37.2-46.3) % MCV (80.0-97.0) fL MCH (27.0-32.0) pg Plt Count (140-440) 10*3/uL MPV (9.5-12.2) fL Immature Gran # (0.00-0.04) 10*3/uL Neutrophils # (1.80-7.70) 10*3/uL Lymphocytes # (0.90-5.00) 10*3/uL Sodium 127 L (137-145) mmol/L Chloride (98-107) mmol/L Carbon Dioxide (22-30) mmol/L BUN (7-17) mg/dL Creatinine (0.52-1.04) mg/dL Glucose (74-99) mg/dL POC Glucose (mg/dL) (70-110) mg/dL Osmolality (275-295) mOsm/kg Phosphorus (2.5-4.5) mg/dL Iron (50-170) UG/DL % Saturation (12.00-45.00) Transferrin (204.0-354.0) mg/dL Ferritin (10.0-291.0) ng/mL Alkaline Phosphatase (38-126) U/L Albumin (3.5-5.0) g/dL Lipase (23-300) U/L Vitamin B12 (200.0-944.0) pg/mL Urine Appearance (Clear) Urine Protein (Negative) Urine Blood (Negative) Urine Nitrite (Negative) Ur Leukocyte Esterase (Negative) Urine RBC (0-5) /hpf Urine WBC (0-5) /hpf Urine WBC Clumps (None) /hpf Urine Bacteria (None) /hpf Urine Mucus (None) /hpf Urine Osmolality (400-1100) mOsm/kg Assessment and Plan (1) Sepsis Current Visit: Yes Status: Acute Code(s): A41.9 - SEPSIS, UNSPECIFIED ORGANISM SNOMED Code(s): 60196366 (2) LISSETTE (acute kidney injury) Current Visit: Yes Status: Acute Code(s): N17.9 - ACUTE KIDNEY FAILURE, UNSPECIFIED SNOMED Code(s): 93057566 (3) UTI (urinary tract infection) Current Visit: Yes Status: Acute Code(s): N39.0 - URINARY TRACT INFECTION, SITE NOT SPECIFIED SNOMED Code(s): 52821858 Plan: 1patient presented hospital with sepsis in this patient who did have tachy cardia hypotension elevated white count meeting criteria for SIRS/sepsis source likely urinary in this patient has significantly positive UA along with urinary symptoms likely from enteric gram-negative pathogen keeping in mind history of cancer on chemo will need to cover for resistant gram-negative pathogen 2-patient elevated creatinine and high risk of nephrotoxicity from certain antibiotics 3-patient is currently being treated with cefepime while waiting for the culture to finalize Dictation was produced using [employer] dictation software. please excuse any grammatical, word or spelling errors. Time with Patient: Less than 30
[2025-02-22 15:39] LABS: African American GFR (CKD) 27 (>60 ml/min/1.73 sqM); Anion Gap 15 mmol/L; Blood Urea Nitrogen 50 mg/dL (7-17); Calcium 8.5 mg/dL (8.4-10.2); Carbon Dioxide 14 mmol/L (22-30); Chloride 96 mmol/L (98-107); Glucose 95 mg/dL (74-99); Non-African American GFR(CKD) 23 (>60 ml/min/1.73 sqM); Potassium 3.2 mmol/L (3.5-5.1); Sodium 125 mmol/L (137-145)
[2025-02-22] MEDS ORDERED: Potassium Replacement Protocol 1 EACH MISC MISCELLANE PRN (15:48)
[2025-02-22] MEDS ORDERED: cefTRIAXone 2 GM in DEXTROSE 5% IN WATER 50 ML IVPB SCH (16:00)
[2025-02-22 16:23] LABS: Glucose,Whole Blood 105 mg/dL (70-110)
[2025-02-22] MEDS: POTASSIUM CHLORIDE ER 20 MEQ TAB.ER PO SCH ×2 (16:32→23:48)
--- NOTE | 2025-02-22 18:03 | P.PN ---
Subjective Progress Note Date: 02/22/25 Patient is a 55-year-old female with a past medical history of hypertension, hyperlipidemia, diabetes type 2 insulin-dependent, metastatic malignant melanoma with mets to liver and lymph nodes, depression, prior history of smoking, GERD and diabetic peripheral neuropathy and history of SVT, prior history of smoking. Patient presents to ER from Dr. Botello's office due to abnormal labs. Patient was also having generalized weakness. She was in the office for her third infusion. She had blood workup done yesterday which showed multiple abnormalities and was recommended to go to ER. She is also having generalized body pains. Also worsening shortness of breath. No chest pain. She does have decreased appetite and not eating well., No nausea no episodes of vomiting. EKG on admission showed sinus rhythm with heart rate 62 Chest x-ray showed no focal consolidation. Elevation of the right hemidiaphragm which is increased from prior exam. Consider sniff test to evaluate for diaphragmatic paralysis. Laboratory data showed WBC 26.7 hemoglobin 8.8 and platelets 634 MCV 75.3 Sodium 118, potassium 4.1 chloride 93 bicarb is 10 BUN 52 and creatinine 2.96, blood sugar 103 lactic acid 1.1 phosphorus 5.8 alk phos 241 proBNP 2350 lipase 441 Urinalysis showed light yellow turbid with large blood nitrite positive leukocyte esterase large elevated RBCs and WBCs. Influenza A B RSV and COVID-19 PCR not detected. 02/22/2025 Patient is in the MICU. Patient is requiring pressor support with Levophed. Re sting in the bed. Awake alert and oriented. Currently on room air. Afebrile overnight. Denied any complaints of nausea vomiting abdominal pain or diarrhea. Lab data showed WBC trending down to 21.7 hemoglobin 8.2 and platelets 0.91 sodium improved to 121 potassium 4.5 chloride 101 bicarb is 6 BUN 54 and creatinine 2.72. Antibiotics were changed to cefazolin 2 g Q12. Nephrology and ID is on board. Objective - Vital Signs Vital signs: Vital Signs Temp 97.7 F 02/22/25 12:00 Pulse 67 02/22/25 14:00 Resp 16 02/22/25 14:00 BP 106/55 02/22/25 14:00 Pulse Ox 100 02/22/25 14:00 FiO2 Intake & Output 02/21/25 02/22/25 02/22/25 18:59 06:59 18:59 Intake Total 776.272 712.541 Output Total 500 200 Balance 276.272 512.541 Weight 158.757 kg Intake: IV 175 50 Sodium Chloride 3%( 175 50 Hypertonic) 500 ml @ 25 mls/hr IV .Q20H ONE Rx#: [id number] Intake, IV Titration 121.272 542.541 Amount Dextrose 5% in Water 1, 150 000 ml @ 150 mls/hr IV . Q6H40M ONE Rx#:[id number] Dextrose 5% in Water 1, 100 000 ml @ 50 mls/hr IV . Q20H ONE Rx#:[id number] Norepinephrine 4 mg In 71.272 17.541 Sodium Chloride 0.9% 250 ml @ 0.03 MCG/KG/MIN 18. 146 mls/hr IV .Q14H [facility] Rx#:[id number] Sodium Chloride 0.45% 1, 225 000 ml @ 75 mls/hr IV . [id number] [facility] with Sodium Bicarb (1 Meq/ml) 100 ml Rx#:[id number] ceFAZolin 2 gm In 50 50 Dextrose 5% in Water 50 ml @ 100 mls/hr IVPB Q12HR [facility] Rx#:[id number] Oral 480 120 Output: Urine 500 200 Other: Voiding Method External Catheter External Catheter # Voids 1 1 # Bowel Movements 0 - Exam PHYSICAL EXAMINATION: Patient is lying in the bed, mild distress with pain and anxious., awake alert and oriented. morbid obesity. HEENT: Normocephalic. Neck is supple. Pupils reactive. Nostrils clear. Oral cavity is moist. Neck reveals no JVD, carotid bruits, or thyromegaly. CHEST EXAMINATION: Trachea is central. Symmetrical expansion. Bibasilar diminished sounds otherwise lung gómez clear to auscultation and percussion. CARDIAC: Normal S1, S2 with no gallops. No murmurs ABDOMEN: Soft. Bowel sounds normal. No organomegaly. No abdominal bruits. Extremities: reveal no edema. No clubbing or cyanosis Neurologically awake, alert, oriented x3 with well-coordinated movements. No g ross focal deficits noted Skin: No rash or skin lesions. Psychiatric: Coperative. Nonsuicidal Musculoskeletal: No joint swelling or deformity. Normal range of motion. - Labs CBC & Chem 7: 04/19/25 04:35 02/22/25 14:29 Labs: Abnormal Lab Results - Last 24 Hours (Table) 02/21/25 02/21/25 02/21/25 Range/Units 13:47 13:49 15:04 WBC (4.50-10.00) 10*3/uL RBC (4.10-5.20) 10*6/uL Hgb (12.0-15.0) g/dL Hct (37.2-46.3) % MCV (80.0-97.0) fL MCH (27.0-32.0) pg Plt Count (140-440) 10*3/uL MPV (9.5-12.2) fL Immature Gran # (0.00-0.04) 10*3/uL Neutrophils # (1.80-7.70) 10*3/uL Sodium (137-145) mmol/L Chloride (98-107) mmol/L Carbon Dioxide (22-30) mmol/L BUN (7-17) mg/dL Creatinine (0.52-1.04) mg/dL Glucose (74-99) mg/dL POC Glucose (mg/dL) (70-110) mg/dL Osmolality 265 L (275-295) mOsm/kg Phosphorus 5.8 H (2.5-4.5) mg/dL Iron (50-170) UG/DL % Saturation (12.00-45.00) Transferrin (204.0-354.0) mg/dL Ferritin (10.0-291.0) ng/mL Vitamin B12 (200.0-944.0) pg/mL Cortisol (3.1-22.4) UG/DL Urine Appearance Turbid H (Clear) Urine Protein 1+ H (Negative) Urine Blood Large H (Negative) Urine Nitrite Positive H (Negative) Ur Leukocyte Esterase Large H (Negative) Urine RBC 59 H (0-5) /hpf Urine WBC >182 H (0-5) /hpf Urine WBC Clumps Many H (None) /hpf Urine Bacteria Many H (None) /hpf Urine Mucus Rare H (None) /hpf Urine Osmolality 252 L (400-1100) mOsm/kg 02/21/25 02/21/25 02/21/25 Range/Units 15:40 18:59 21:10 WBC (4.50-10.00) 10*3/uL RBC (4.10-5.20) 10*6/uL Hgb (12.0-15.0) g/dL Hct (37.2-46.3) % MCV (80.0-97.0) fL MCH (27.0-32.0) pg Plt Count (140-440) 10*3/uL MPV (9.5-12.2) fL Immature Gran # (0.00-0.04) 10*3/uL Neutrophils # (1.80-7.70) 10*3/uL Sodium 118 L* 119 L* 118 L* (137-145) mmol/L Chloride 94 L (98-107) mmol/L Carbon Dioxide 12 L (22-30) mmol/L BUN 51 H (7-17) mg/dL Creatinine 2.79 H (0.52-1.04) mg/dL Glucose (74-99) mg/dL POC Glucose (mg/dL) (70-110) mg/dL Osmolality (275-295) mOsm/kg Phosphorus (2.5-4.5) mg/dL Iron (50-170) UG/DL % Saturation (12.00-45.00) Transferrin (204.0-354.0) mg/dL Ferritin (10.0-291.0) ng/mL Vitamin B12 (200.0-944.0) pg/mL Cortisol (3.1-22.4) UG/DL Urine Appearance (Clear) Urine Protein (Negative) Urine Blood (Negative) Urine Nitrite (Negative) Ur Leukocyte Esterase (Negative) Urine RBC (0-5) /hpf Urine WBC (0-5) /hpf Urine WBC Clumps (None) /hpf Urine Bacteria (None) /hpf Urine Mucus (None) /hpf Urine Osmolality (400-1100) mOsm/kg 02/21/25 02/22/25 02/22/25 Range/Units 23:44 02:48 04:35 WBC (4.50-10.00) 10*3/uL RBC (4.10-5.20) 10*6/uL Hgb (12.0-15.0) g/dL Hct (37.2-46.3) % MCV (80.0-97.0) fL MCH (27.0-32.0) pg Plt Count (140-440) 10*3/uL MPV (9.5-12.2) fL Immature Gran # (0.00-0.04) 10*3/uL Neutrophils # (1.80-7.70) 10*3/uL Sodium 120 L 121 L 123 L (137-145) mmol/L Chloride (98-107) mmol/L Carbon Dioxide 6 L* (22-30) mmol/L BUN 54 H (7-17) mg/dL Creatinine 2.72 H (0.52-1.04) mg/dL Glucose 55 L (74-99) mg/dL POC Glucose (mg/dL) (70-110) mg/dL Osmolality (275-295) mOsm/kg Phosphorus (2.5-4.5) mg/dL Iron 17 L (50-170) UG/DL % Saturation 7.36 L (12.00-45.00) Transferrin 165.0 L (204.0-354.0) mg/dL Ferritin 501.0 H (10.0-291.0) ng/mL Vitamin B12 3177.0 H (200.0-944.0) pg/mL Cortisol (3.1-22.4) UG/DL Urine Appearance (Clear) Urine Protein (Negative) Urine Blood (Negative) Urine Nitrite (Negative) Ur Leukocyte Esterase (Negative) Urine RBC (0-5) /hpf Urine WBC (0-5) /hpf Urine WBC Clumps (None) /hpf Urine Bacteria (None) /hpf Urine Mucus (None) /hpf Urine Osmolality (400-1100) mOsm/kg 02/22/25 02/22/25 02/22/25 Range/Units 04:35 04:35 06:15 WBC 21.74 H (4.50-10.00) 10*3/uL RBC 3.23 L (4.10-5.20) 10*6/uL Hgb 8.2 L (12.0-15.0) g/dL Hct 24.8 L (37.2-46.3) % MCV 76.8 L (80.0-97.0) fL MCH 25.4 L (27.0-32.0) pg Plt Count 591 H (140-440) 10*3/uL MPV 8.7 L (9.5-12.2) fL Immature Gran # 0.80 H (0.00-0.04) 10*3/uL Neutrophils # 18.69 H (1.80-7.70) 10*3/uL Sodium 121 L (137-145) mmol/L Chloride (98-107) mmol/L Carbon Dioxide (22-30) mmol/L BUN (7-17) mg/dL Creatinine (0.52-1.04) mg/dL Glucose (74-99) mg/dL POC Glucose (mg/dL) 48 L* (70-110) mg/dL Osmolality (275-295) mOsm/kg Phosphorus (2.5-4.5) mg/dL Iron (50-170) UG/DL % Saturation (12.00-45.00) Transferrin (204.0-354.0) mg/dL Ferritin (10.0-291.0) ng/mL Vitamin B12 (200.0-944.0) pg/mL Cortisol (3.1-22.4) UG/DL Urine Appearance (Clear) Urine Protein (Negative) Urine Blood (Negative) Urine Nitrite (Negative) Ur Leukocyte Esterase (Negative) Urine RBC (0-5) /hpf Urine WBC (0-5) /hpf Urine WBC Clumps (None) /hpf Urine Bacteria (None) /hpf Urine Mucus (None) /hpf Urine Osmolality (400-1100) mOsm/kg 02/22/25 02/22/25 02/22/25 Range/Units 06:51 09:59 10:02 WBC (4.50-10.00) 10*3/uL RBC (4.10-5.20) 10*6/uL Hgb (12.0-15.0) g/dL Hct (37.2-46.3) % MCV (80.0-97.0) fL MCH (27.0-32.0) pg Plt Count (140-440) 10*3/uL MPV (9.5-12.2) fL Immature Gran # (0.00-0.04) 10*3/uL Neutrophils # (1.80-7.70) 10*3/uL Sodium 122 L 126 L (137-145) mmol/L Chloride (98-107) mmol/L Carbon Dioxide (22-30) mmol/L BUN (7-17) mg/dL Creatinine (0.52-1.04) mg/dL Glucose (74-99) mg/dL POC Glucose (mg/dL) 65 L (70-110) mg/dL Osmolality (275-295) mOsm/kg Phosphorus (2.5-4.5) mg/dL Iron (50-170) UG/DL % Saturation (12.00-45.00) Transferrin (204.0-354.0) mg/dL Ferritin (10.0-291.0) ng/mL Vitamin B12 (200.0-944.0) pg/mL Cortisol 28.0 H (3.1-22.4) UG/DL Urine Appearance (Clear) Urine Protein (Negative) Urine Blood (Negative) Urine Nitrite (Negative) Ur Leukocyte Esterase (Negative) Urine RBC (0-5) /hpf Urine WBC (0-5) /hpf Urine WBC Clumps (None) /hpf Urine Bacteria (None) /hpf Urine Mucus (None) /hpf Urine Osmolality (400-1100) mOsm/kg 02/22/25 02/22/25 Range/Units 11:41 12:00 WBC (4.50-10.00) 10*3/uL RBC (4.10-5.20) 10*6/uL Hgb (12.0-15.0) g/dL Hct (37.2-46.3) % MCV (80.0-97.0) fL MCH (27.0-32.0) pg Plt Count (140-440) 10*3/uL MPV (9.5-12.2) fL Immature Gran # (0.00-0.04) 10*3/uL Neutrophils # (1.80-7.70) 10*3/uL Sodium 127 L (137-145) mmol/L Chloride (98-107) mmol/L Carbon Dioxide (22-30) mmol/L BUN (7-17) mg/dL Creatinine (0.52-1.04) mg/dL Glucose (74-99) mg/dL POC Glucose (mg/dL) 68 L (70-110) mg/dL Osmolality (275-295) mOsm/kg Phosphorus (2.5-4.5) mg/dL Iron (50-170) UG/DL % Saturation (12.00-45.00) Transferrin (204.0-354.0) mg/dL Ferritin (10.0-291.0) ng/mL Vitamin B12 (200.0-944.0) pg/mL Cortisol (3.1-22.4) UG/DL Urine Appearance (Clear) Urine Protein (Negative) Urine Blood (Negative) Urine Nitrite (Negative) Ur Leukocyte Esterase (Negative) Urine RBC (0-5) /hpf Urine WBC (0-5) /hpf Urine WBC Clumps (None) /hpf Urine Bacteria (None) /hpf Urine Mucus (None) /hpf Urine Osmolality (400-1100) mOsm/kg Assessment and Plan Assessment: Severe hyponatremia with sodium level 118-hypoosmolar hyponatremia due to decreased oral intake and LISSETTE. Acute kidney injury. Possible ATN. SIADH cannot be excluded due to underlying malignancy. Creatinine 2.96 on admission baseline 1.0 Non-anion gap metabolic acidosis Acute urinary tract infection Mild pancreatitis with lipase level 441 Malignant melanoma with mets to liver and lymph nodes. On chemoinfusion and is on follow-up with oncology. Diabetes type 2 insulin-dependent Diabetic peripheral neuropathy History of SVT Paroxysmal atrial fibrillation Osteoarthritis Hypertension Hyperlipidemia GERD Depression Prior history of smoking Microcytic anemia rule out iron deficiency. Hemoglobin 8.8 on admission morbid obesity GI prophylax with PPI and currently on anticoagulation with Eliquis Plan: Patient in the MICU. Continue with telemonitoring. Patient was on bicarb drip.. Sodium level improved to 121. Metformin, spironolactone and Cozaar is on hold due to acute kidney injury. Reduce Neurontin dose to 600 mg twice daily. Renal ultrasound was ordered. Follow-up serum osmolality, urine osmolality 252. Random urine sodium and protein/creatinine. Antibiotics in the form of cefazolin as per ID recommendations.. Follow-up urine culture report. Continue with insulin regimen and sliding scale and other home medications. Nephrology, oncology and ID is on board. Prognosis is guarded at this time. Time with Patient: Greater than 30
[2025-02-22 19:38] LABS: Glucose,Whole Blood 100 mg/dL (70-110)
[2025-02-22] MEDS: SODIUM CHLORIDE 0.45% 1,000 ML with SODIUM BICARB (1 MEQ/ML) 100 ML IV ONE (20:02)
[2025-02-22 22:41] LABS: Potassium 3.6 mmol/L (3.5-5.1)
[2025-02-23 02:06] LABS: Glucose,Whole Blood 112 mg/dL (70-110)
[2025-02-23] MEDS: [UNRECOGNIZED DRUG - OTHER] SQ SCH (04:14)
[2025-02-23] MEDS: INSULIN GLARGINE SQ SCH (04:14)
[2025-02-23] MEDS: LIXISENATIDE SQ SCH (04:14)
[2025-02-23 05:59] LABS: Basophils # (A) 0.03 10*3/uL (0.00-0.10); Basophils % (A) 0.2 %; Eosinophils # (A) 0.17 10*3/uL (0.04-0.35); HCT 21.2 % (37.2-46.3); HGB 7.4 g/dL (12.0-15.0); Lymphocytes # (A) 0.93 10*3/uL (0.90-5.00); Lymphocytes % (A) 5.2 %; MCH 26.1 pg (27.0-32.0); MCHC 34.9 g/dL (32.0-37.0); MCV 74.6 fL (80.0-97.0); Mean Platelet Volume 8.7 fL (9.5-12.2); Monocytes # (A) 0.87 10*3/uL (0.20-1.00); Monocytes % (A) 4.9 %; Neutrophils # (A) 15.25 10*3/uL (1.80-7.70); Neutrophils % (A) 85.9 %; Platelet Count 505 10*3/uL (140-440); RBC 2.84 10*6/uL (4.10-5.20); RDW 17.2 % (11.5-14.5); WBC 17.74 10*3/uL (4.50-10.00)
[2025-02-23 06:03] LABS: Glucose,Whole Blood 96 mg/dL (70-110)
[2025-02-23 06:19] LABS: African American GFR (CKD) 32 (>60 ml/min/1.73 sqM); Anion Gap 10 mmol/L; Blood Urea Nitrogen 44 mg/dL (7-17); Calcium 8.3 mg/dL (8.4-10.2); Carbon Dioxide 15 mmol/L (22-30); Chloride 98 mmol/L (98-107); Glucose 82 mg/dL (74-99); Non-African American GFR(CKD) 28 (>60 ml/min/1.73 sqM); Potassium 3.6 mmol/L (3.5-5.1); Sodium 123 mmol/L (137-145)
[2025-02-23] MEDS: POTASSIUM CHLORIDE ER 20 MEQ TAB.ER PO SCH ×2 (07:02→21:34)
--- NOTE | 2025-02-23 09:17 | P.PN ---
Subjective Progress Note Date: 02/23/25 This is a pleasant 55-year-old female patient with a known history of diabetes melitis, type II, hypertension, hyperlipidemia, former smoker, peripheral neuropathy, SVT. She also has a history of metastatic malignant melanoma with mets to the liver and lymph nodes. She was in Dr. Botello's office yesterday for her third infusion of chemotherapy and was found to have abnormal labs and the patient also had generalized weakness. She was referred to the ER for the same. She was found to have a sodium of 118 and was initiated on 3% saline and admitted to the intensive care unit. She is seen today in consultation. She is awake and alert. Quite weak. Maintaining good O2 saturations up to 100% on room air. She briefly required norepinephrine for hypotension. The most recent sodium was 122. 3% saline is on pause. She has a sodium bicarbonate drip at 75 mL/h. Anticoagulated with Eliquis. White count 21.7. Hemoglobin 8.2. Platelets 591. Potassium 4.5. Bicarb 6. BUN 54. Creatinine 2.72. Glucose 65. Chest x-ray shows no focal consolidation. Some elevation in the right hemidiaphragm. The patient is seen today February 23, 2025 in follow-up in the intensive care unit. She is currently sitting up in bed. Awake and alert in no acute distress. Maintaining O2 saturations in the 90s on room air. She has been off norepinephrine since 5 AM this morning. She is receiving 0.45 normal saline with 2 A of bicarb at 75 mL/h. Her current sodium is 123. Potassium 3.6. Bicarb 15. BUN 44. Creatinine 1.98. Glucose 82. White count 17.7. Hemoglobin 7.4. Platelets 505. She is anticoagulated with Eliquis. She remains on cefazolin. Objective - Vital Signs Vital signs: Vital Signs Temp 97.0 F L 02/23/25 04:00 Pulse 83 02/23/25 07:15 Resp 16 02/23/25 07:15 BP 96/63 02/23/25 07:15 Pulse Ox 100 02/23/25 07:15 FiO2 Intake & Output 02/22/25 02/23/25 02/23/25 18:59 06:59 18:59 Intake Total 8334.568 3227.128 270 Output Total 400 500 100 Balance 639.701 653.128 170 Weight 156.2 kg Intake: IV 50 825 150 Sodium Chloride 0.45% 1, 825 150 000 ml @ 75 mls/hr IV . [id number] ONE with Sodium Bicarb (1 Meq/ml) 100 ml Rx#:[id number] Sodium Chloride 3%( 50 Hypertonic) 500 ml @ 25 mls/hr IV .Q20H ONE Rx#: [id number] Intake, IV Titration 749.701 78.128 Amount Dextrose 5% in Water 1, 300 000 ml @ 150 mls/hr IV . Q6H40M ONE Rx#:[id number] Dextrose 5% in Water 1, 100 000 ml @ 50 mls/hr IV . Q20H ONE Rx#:[id number] Norepinephrine 4 mg In 74.701 78.128 Sodium Chloride 0.9% 250 ml @ 0.03 MCG/KG/MIN 18. 146 mls/hr IV .Q14H [facility] Rx#:[id number] Sodium Chloride 0.45% 1, 225 000 ml @ 75 mls/hr IV . [id number] LULU with Sodium Bicarb (1 Meq/ml) 100 ml Rx#:[id number] ceFAZolin 2 gm In 50 Dextrose 5% in Water 50 ml @ 100 mls/hr IVPB Q12HR [facility] Rx#:[id number] Oral 240 250 120 Output: Urine 400 500 100 Other: Voiding Method External Catheter External Catheter # Voids 1 # Bowel Movements 0 - Exam GENERAL EXAM: Alert, pleasant 55-year-old female, sitting up in bed, on room air, comfortable in no apparent distress. HEAD: Normocephalic. EYES: Normal reaction of pupils, equal size. NOSE: Clear with pink turbinates. THROAT: No erythema or exudates. NECK: No masses, no JVD. CHEST: No chest wall deformity. LUNGS: Equal air entry with few scattered rhonchi. CVS: S1 and S2 normal with no audible murmur, regular rhythm. ABDOMEN: No hepatosplenomegaly, normal bowel sounds, no guarding or rigidity. SPINE: No scoliosis or deformity SKIN: No rashes CENTRAL NERVOUS SYSTEM: No focal deficits, tone is normal in all 4 extremities. EXTREMITIES: There is no peripheral edema. No clubbing, no cyanosis. Peripheral pulses are intact. - Labs CBC & Chem 7: 02/23/25 05:33 02/23/25 05:33 Labs: Abnormal Lab Results - Last 24 Hours (Table) 02/22/25 02/22/25 02/22/25 Range/Units 04:35 06:51 09:59 WBC (4.50-10.00) 10*3/uL RBC (4.10-5.20) 10*6/uL Hgb (12.0-15.0) g/dL Hct (37.2-46.3) % MCV (80.0-97.0) fL MCH (27.0-32.0) pg Plt Count (140-440) 10*3/uL MPV (9.5-12.2) fL Immature Gran # (0.00-0.04) 10*3/uL Neutrophils # (1.80-7.70) 10*3/uL Sodium (137-145) mmol/L Potassium (3.5-5.1) mmol/L Chloride (98-107) mmol/L Carbon Dioxide (22-30) mmol/L BUN (7-17) mg/dL Creatinine (0.52-1.04) mg/dL POC Glucose (mg/dL) 65 L (70-110) mg/dL Calcium (8.4-10.2) mg/dL Iron 17 L (50-170) UG/DL % Saturation 7.36 L (12.00-45.00) Transferrin 165.0 L (204.0-354.0) mg/dL Ferritin 501.0 H (10.0-291.0) ng/mL Vitamin B12 3177.0 H (200.0-944.0) pg/mL Cortisol 28.0 H (3.1-22.4) UG/DL 02/22/25 02/22/25 02/22/25 Range/Units 10:02 11:41 12:00 WBC (4.50-10.00) 10*3/uL RBC (4.10-5.20) 10*6/uL Hgb (12.0-15.0) g/dL Hct (37.2-46.3) % MCV (80.0-97.0) fL MCH (27.0-32.0) pg Plt Count (140-440) 10*3/uL MPV (9.5-12.2) fL Immature Gran # (0.00-0.04) 10*3/uL Neutrophils # (1.80-7.70) 10*3/uL Sodium 126 L 127 L (137-145) mmol/L Potassium (3.5-5.1) mmol/L Chloride (98-107) mmol/L Carbon Dioxide (22-30) mmol/L BUN (7-17) mg/dL Creatinine (0.52-1.04) mg/dL POC Glucose (mg/dL) 68 L (70-110) mg/dL Calcium (8.4-10.2) mg/dL Iron (50-170) UG/DL % Saturation (12.00-45.00) Transferrin (204.0-354.0) mg/dL Ferritin (10.0-291.0) ng/mL Vitamin B12 (200.0-944.0) pg/mL Cortisol (3.1-22.4) UG/DL 02/22/25 02/22/25 02/22/25 Range/Units 14:29 18:23 22:19 WBC (4.50-10.00) 10*3/uL RBC (4.10-5.20) 10*6/uL Hgb (12.0-15.0) g/dL Hct (37.2-46.3) % MCV (80.0-97.0) fL MCH (27.0-32.0) pg Plt Count (140-440) 10*3/uL MPV (9.5-12.2) fL Immature Gran # (0.00-0.04) 10*3/uL Neutrophils # (1.80-7.70) 10*3/uL Sodium 125 L 123 L 123 L (137-145) mmol/L Potassium 3.2 L (3.5-5.1) mmol/L Chloride 96 L (98-107) mmol/L Carbon Dioxide 14 L (22-30) mmol/L BUN 50 H (7-17) mg/dL Creatinine 2.26 H (0.52-1.04) mg/dL POC Glucose (mg/dL) (70-110) mg/dL Calcium (8.4-10.2) mg/dL Iron (50-170) UG/DL % Saturation (12.00-45.00) Transferrin (204.0-354.0) mg/dL Ferritin (10.0-291.0) ng/mL Vitamin B12 (200.0-944.0) pg/mL Cortisol (3.1-22.4) UG/DL 02/23/25 02/23/25 02/23/25 Range/Units 01:14 02:04 03:23 WBC (4.50-10.00) 10*3/uL RBC (4.10-5.20) 10*6/uL Hgb (12.0-15.0) g/dL Hct (37.2-46.3) % MCV (80.0-97.0) fL MCH (27.0-32.0) pg Plt Count (140-440) 10*3/uL MPV (9.5-12.2) fL Immature Gran # (0.00-0.04) 10*3/uL Neutrophils # (1.80-7.70) 10*3/uL Sodium 123 L 122 L (137-145) mmol/L Potassium (3.5-5.1) mmol/L Chloride (98-107) mmol/L Carbon Dioxide (22-30) mmol/L BUN (7-17) mg/dL Creatinine (0.52-1.04) mg/dL POC Glucose (mg/dL) 112 H (70-110) mg/dL Calcium (8.4-10.2) mg/dL Iron (50-170) UG/DL % Saturation (12.00-45.00) Transferrin (204.0-354.0) mg/dL Ferritin (10.0-291.0) ng/mL Vitamin B12 (200.0-944.0) pg/mL Cortisol (3.1-22.4) UG/DL 02/23/25 02/23/25 02/23/25 Range/Units 05:33 05:33 05:33 WBC 17.74 H (4.50-10.00) 10*3/uL RBC 2.84 L (4.10-5.20) 10*6/uL Hgb 7.4 L (12.0-15.0) g/dL Hct 21.2 L (37.2-46.3) % MCV 74.6 L (80.0-97.0) fL MCH 26.1 L (27.0-32.0) pg Plt Count 505 H (140-440) 10*3/uL MPV 8.7 L (9.5-12.2) fL Immature Gran # 0.49 H (0.00-0.04) 10*3/uL Neutrophils # 15.25 H (1.80-7.70) 10*3/uL Sodium 124 L 123 L (137-145) mmol/L Potassium (3.5-5.1) mmol/L Chloride (98-107) mmol/L Carbon Dioxide 15 L (22-30) mmol/L BUN 44 H (7-17) mg/dL Creatinine 1.98 H (0.52-1.04) mg/dL POC Glucose (mg/dL) (70-110) mg/dL Calcium 8.3 L (8.4-10.2) mg/dL Iron (50-170) UG/DL % Saturation (12.00-45.00) Transferrin (204.0-354.0) mg/dL Ferritin (10.0-291.0) ng/mL Vitamin B12 (200.0-944.0) pg/mL Cortisol (3.1-22.4) UG/DL Microbiology - Last 24 Hours (Table) 02/21/25 15:40 Blood Culture - Preliminary Blood 02/21/25 13:49 Urine Culture - Preliminary Urine,Voided Gram Neg Bacilli Assessment and Plan Assessment: Hyponatremia with generalized weakness secondary to 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 and poor oral intake Malignant melanoma with metastatic disease to the liver and lymph nodes, receive d 3 cycles of Opdualag thus far Acute kidney injury secondary to ATN from hypotension Metabolic acidosis secondary to above Urinary tract infection secondary to gram-negative bacilli Leukocytosis secondary to above Anemia Diabetes mellitus type 2 History of UTIs History of hypertension Hyperlipidemia Plan: The patient was seen and evaluated Labs and medications reviewed Current sodium 123, bicarb 15 Remains on 0.45 normal saline with 2 A of bicarb at 75 mL/h Currently off norepinephrine Continue with cefazolin Anticoagulated with Eliquis Currently stable and on room air oxygen May transfer out of the ICU later today if stable I have personally seen and examined the patient, performed the documentation and the assessment and plan as written. Number of minutes spent on the visit: 10 Dictation was produced using [employer] software. Please excuse any grammatical, word or spelling errors.
--- NOTE | 2025-02-23 10:19 | P.PN ---
Subjective Patient is seen in follow-up for acute kidney injury and hyponatremia. Sodium level 122 this morning. Has been receiving half-normal saline with bicarb. Has been voiding. Urine output about 500 cc overnight per RN. Vital signs are stable. General: No acute distress. HEENT: Head exam is unremarkable. LUNGS: No audible rhonchi or wheezes. HEART: Rate and Rhythm are regular. ABDOMEN: Nontender. EXTREMITITES: No edema. Objective - Vital Signs Vital signs: Vital Signs Temp 97.6 F 02/23/25 08:00 Pulse 78 02/23/25 09:00 Resp 14 02/23/25 09:00 BP 124/62 02/23/25 09:00 Pulse Ox 100 02/23/25 09:00 FiO2 Intake & Output 02/22/25 02/23/25 02/23/25 18:59 06:59 18:59 Intake Total 8664.532 0332.128 395 Output Total 400 500 100 Balance 639.701 653.128 295 Weight 156.2 kg Intake: IV 50 825 225 Sodium Chloride 0.45% 1, 825 225 000 ml @ 75 mls/hr IV . [id number] ONE with Sodium Bicarb (1 Meq/ml) 100 ml Rx#:[id number] Sodium Chloride 3%( 50 Hypertonic) 500 ml @ 25 mls/hr IV .Q20H ONE Rx#: [id number] Intake, IV Titration 749.701 78.128 50 Amount Dextrose 5% in Water 1, 300 000 ml @ 150 mls/hr IV . Q6H40M ONE Rx#:[id number] Dextrose 5% in Water 1, 100 000 ml @ 50 mls/hr IV . Q20H ONE Rx#:[id number] Norepinephrine 4 mg In 74.701 78.128 Sodium Chloride 0.9% 250 ml @ 0.03 MCG/KG/MIN 18. 146 mls/hr IV .Q14H [facility] Rx#:[id number] Sodium Chloride 0.45% 1, 225 000 ml @ 75 mls/hr IV . [id number] [facility] with Sodium Bicarb (1 Meq/ml) 100 ml Rx#:[id number] ceFAZolin 2 gm In 50 50 Dextrose 5% in Water 50 ml @ 100 mls/hr IVPB Q12HR [facility] Rx#:[id number] Oral 240 250 120 Output: Urine 400 500 100 Other: Voiding Method External Catheter External Catheter # Voids 1 # Bowel Movements 0 - Labs CBC & Chem 7: 02/23/25 05:33 02/23/25 09:01 Labs: Abnormal Lab Results - Last 24 Hours (Table) 02/22/25 02/22/25 02/22/25 Range/Units 04:35 06:51 10:02 WBC (4.50-10.00) 10*3/uL RBC (4.10-5.20) 10*6/uL Hgb (12.0-15.0) g/dL Hct (37.2-46.3) % MCV (80.0-97.0) fL MCH (27.0-32.0) pg Plt Count (140-440) 10*3/uL MPV (9.5-12.2) fL Immature Gran # (0.00-0.04) 10*3/uL Neutrophils # (1.80-7.70) 10*3/uL Sodium 126 L (137-145) mmol/L Potassium (3.5-5.1) mmol/L Chloride (98-107) mmol/L Carbon Dioxide (22-30) mmol/L BUN (7-17) mg/dL Creatinine (0.52-1.04) mg/dL POC Glucose (mg/dL) (70-110) mg/dL Calcium (8.4-10.2) mg/dL Iron 17 L (50-170) UG/DL % Saturation 7.36 L (12.00-45.00) Transferrin 165.0 L (204.0-354.0) mg/dL Ferritin 501.0 H (10.0-291.0) ng/mL Vitamin B12 3177.0 H (200.0-944.0) pg/mL Cortisol 28.0 H (3.1-22.4) UG/DL 02/22/25 02/22/25 02/22/25 Range/Units 11:41 12:00 14:29 WBC (4.50-10.00) 10*3/uL RBC (4.10-5.20) 10*6/uL Hgb (12.0-15.0) g/dL Hct (37.2-46.3) % MCV (80.0-97.0) fL MCH (27.0-32.0) pg Plt Count (140-440) 10*3/uL MPV (9.5-12.2) fL Immature Gran # (0.00-0.04) 10*3/uL Neutrophils # (1.80-7.70) 10*3/uL Sodium 127 L 125 L (137-145) mmol/L Potassium 3.2 L (3.5-5.1) mmol/L Chloride 96 L (98-107) mmol/L Carbon Dioxide 14 L (22-30) mmol/L BUN 50 H (7-17) mg/dL Creatinine 2.26 H (0.52-1.04) mg/dL POC Glucose (mg/dL) 68 L (70-110) mg/dL Calcium (8.4-10.2) mg/dL Iron (50-170) UG/DL % Saturation (12.00-45.00) Transferrin (204.0-354.0) mg/dL Ferritin (10.0-291.0) ng/mL Vitamin B12 (200.0-944.0) pg/mL Cortisol (3.1-22.4) UG/DL 02/22/25 02/22/25 02/23/25 Range/Units 18:23 22:19 01:14 WBC (4.50-10.00) 10*3/uL RBC (4.10-5.20) 10*6/uL Hgb (12.0-15.0) g/dL Hct (37.2-46.3) % MCV (80.0-97.0) fL MCH (27.0-32.0) pg Plt Count (140-440) 10*3/uL MPV (9.5-12.2) fL Immature Gran # (0.00-0.04) 10*3/uL Neutrophils # (1.80-7.70) 10*3/uL Sodium 123 L 123 L 123 L (137-145) mmol/L Potassium (3.5-5.1) mmol/L Chloride (98-107) mmol/L Carbon Dioxide (22-30) mmol/L BUN (7-17) mg/dL Creatinine (0.52-1.04) mg/dL POC Glucose (mg/dL) (70-110) mg/dL Calcium (8.4-10.2) mg/dL Iron (50-170) UG/DL % Saturation (12.00-45.00) Transferrin (204.0-354.0) mg/dL Ferritin (10.0-291.0) ng/mL Vitamin B12 (200.0-944.0) pg/mL Cortisol (3.1-22.4) UG/DL 02/23/25 02/23/25 02/23/25 Range/Units 02:04 03:23 05:33 WBC (4.50-10.00) 10*3/uL RBC (4.10-5.20) 10*6/uL Hgb (12.0-15.0) g/dL Hct (37.2-46.3) % MCV (80.0-97.0) fL MCH (27.0-32.0) pg Plt Count (140-440) 10*3/uL MPV (9.5-12.2) fL Immature Gran # (0.00-0.04) 10*3/uL Neutrophils # (1.80-7.70) 10*3/uL Sodium 122 L 124 L (137-145) mmol/L Potassium (3.5-5.1) mmol/L Chloride (98-107) mmol/L Carbon Dioxide (22-30) mmol/L BUN (7-17) mg/dL Creatinine (0.52-1.04) mg/dL POC Glucose (mg/dL) 112 H (70-110) mg/dL Calcium (8.4-10.2) mg/dL Iron (50-170) UG/DL % Saturation (12.00-45.00) Transferrin (204.0-354.0) mg/dL Ferritin (10.0-291.0) ng/mL Vitamin B12 (200.0-944.0) pg/mL Cortisol (3.1-22.4) UG/DL 02/23/25 02/23/25 02/23/25 Range/Units 05:33 05:33 09:01 WBC 17.74 H (4.50-10.00) 10*3/uL RBC 2.84 L (4.10-5.20) 10*6/uL Hgb 7.4 L (12.0-15.0) g/dL Hct 21.2 L (37.2-46.3) % MCV 74.6 L (80.0-97.0) fL MCH 26.1 L (27.0-32.0) pg Plt Count 505 H (140-440) 10*3/uL MPV 8.7 L (9.5-12.2) fL Immature Gran # 0.49 H (0.00-0.04) 10*3/uL Neutrophils # 15.25 H (1.80-7.70) 10*3/uL Sodium 123 L 122 L (137-145) mmol/L Potassium (3.5-5.1) mmol/L Chloride (98-107) mmol/L Carbon Dioxide 15 L (22-30) mmol/L BUN 44 H (7-17) mg/dL Creatinine 1.98 H (0.52-1.04) mg/dL POC Glucose (mg/dL) (70-110) mg/dL Calcium 8.3 L (8.4-10.2) mg/dL Iron (50-170) UG/DL % Saturation (12.00-45.00) Transferrin (204.0-354.0) mg/dL Ferritin (10.0-291.0) ng/mL Vitamin B12 (200.0-944.0) pg/mL Cortisol (3.1-22.4) UG/DL Microbiology - Last 24 Hours (Table) 02/21/25 15:40 Blood Culture - Preliminary Blood 02/21/25 13:49 Urine Culture - Preliminary Urine,Voided Gram Neg Bacilli Assessment and Plan Plan: Assessment: 1. 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 Urine osmolality 252. Sodium level 118 on admission and improved to 127 yesterday and was 122 this morning. Cortisol level high. TSH normal. Urine osmolality 252. 2. Malignant melanoma with metastatic disease to liver and lymph nodes. 3. Acute kidney injury secondary to ATN secondary to severe sepsis. Baseline creatinine near 1 from December 2024. Creatinine 2.96 on admission and is 1.98 today. 4. UTI on antibiotics. Urine culture positive for gram-negative bacilli. 5. Metabolic acidosis secondary to acute kidney injury and IV fluids. Was also on metformin. 6. Diabetes mellitus. Plan: Stop bicarb drip. Resume 3% at 25 cc an hour. Discontinue once sodium level 127-128. Check sodium level every 2 hours. Will give sodium bicarb IV push. Follow-up cultures. Continue to monitor renal function and urine output. Potassium replaced. Encouraged oral intake. Will consider adding urea tomorrow depending on sodium level.
[2025-02-23] MEDS: SODIUM BICARB 8.4% 50 ML SYR (1 MEQ/ML) IV STA (10:21)
[2025-02-23] MEDS: SODIUM CHLORIDE 3%(HYPERTONIC) 500 ML IV ONE (10:39)
[2025-02-23] MEDS: SODIUM FERRIC GLUCONAT-SUCROSE 125 MG in SODIUM CHLORIDE 0.9% 100 ML IVPB SCH (11:22)
[2025-02-23 11:50] LABS: Glucose,Whole Blood 96 mg/dL (70-110)
--- NOTE | 2025-02-23 14:42 | P.PN ---
Subjective Progress Note Date: 02/23/25 Principal diagnosis: Reason for follow-up is sepsis and UTI Patient is a 55-year-old female with a past medical history significant for stage IV malignant melanoma on chemo, Diabetes Mellitus, GERD/Reflux, Hyperlipidemia, Hypertension, Osteoarthritis (OA) presenting to the hospital for evaluation of generalized weakness did have urinary symptoms a positive UA concerning for symptomatic UTI with sepsis requiring admission by ICU. On today's evaluation that is 02/23/2025, Patient is afebrile patient is currently on room air and denies having any shortness of breath, the patient denies any chest pain or cough, the patient denies any nausea vomiting did not have any abdominal pain and no diarrhea. Patient white count is down to 17.74, creatinine is 1.98 urine is growing gram- negative blood cultures so far negative Objective - Vital Signs Vital signs: Vital Signs Temp 97.6 F 02/23/25 08:00 Pulse 102 H 02/23/25 11:00 Resp 14 02/23/25 11:00 BP 125/70 02/23/25 11:00 Pulse Ox 99 02/23/25 11:00 FiO2 Intake & Output 02/22/25 02/23/25 02/23/25 18:59 06:59 18:59 Intake Total 8764.123 5760.128 545 Output Total 400 500 100 Balance 639.701 653.128 445 Weight 156.2 kg Intake: IV 50 825 225 Sodium Chloride 0.45% 1, 825 225 000 ml @ 75 mls/hr IV . [id number] ONE with Sodium Bicarb (1 Meq/ml) 100 ml Rx#:[id number] Sodium Chloride 3%( 50 Hypertonic) 500 ml @ 25 mls/hr IV .Q20H ONE Rx#: [id number] Intake, IV Titration 749.701 78.128 200 Amount Dextrose 5% in Water 1, 300 000 ml @ 150 mls/hr IV . Q6H40M ONE Rx#:[id number] Dextrose 5% in Water 1, 100 000 ml @ 50 mls/hr IV . Q20H ONE Rx#:[id number] Norepinephrine 4 mg In 74.701 78.128 Sodium Chloride 0.9% 250 ml @ 0.03 MCG/KG/MIN 18. 146 mls/hr IV .Q14H [facility] Rx#:[id number] Sodium Chloride 0.45% 1, 225 000 ml @ 75 mls/hr IV . [id number] [facility] with Sodium Bicarb (1 Meq/ml) 100 ml Rx#:[id number] Sodium Chloride 3%( 50 Hypertonic) 500 ml @ 25 mls/hr IV .Q20H ONE Rx#: [id number] Sodium Ferric Gluconat- 100 Sucrose 125 mg In Sodium Chloride 0.9% 100 ml @ 100 mls/hr IVPB DAILY [facility] Rx#:[id number] ceFAZolin 2 gm In 50 50 Dextrose 5% in Water 50 ml @ 100 mls/hr IVPB Q12HR [facility] Rx#:[id number] Oral 240 250 120 Output: Urine 400 500 100 Other: Voiding Method External Catheter External Catheter # Voids 1 1 # Bowel Movements 0 1 - Exam GENERAL DESCRIPTION: A middle-age female lying in bed in no distress RESPIRATORY SYSTEM: Unlabored breathing , decreased breath sounds at bases HEART: S1 S2 regular rate and rhythm , ABDOMEN: Soft , no tenderness EXTREMITIES: No edema feet - Labs CBC & Chem 7: 02/23/25 05:33 02/23/25 12:03 Labs: Abnormal Lab Results - Last 24 Hours (Table) 02/22/25 02/22/25 02/22/25 Range/Units 06:51 14:29 18:23 WBC (4.50-10.00) 10*3/uL RBC (4.10-5.20) 10*6/uL Hgb (12.0-15.0) g/dL Hct (37.2-46.3) % MCV (80.0-97.0) fL MCH (27.0-32.0) pg Plt Count (140-440) 10*3/uL MPV (9.5-12.2) fL Immature Gran # (0.00-0.04) 10*3/uL Neutrophils # (1.80-7.70) 10*3/uL Sodium 125 L 123 L (137-145) mmol/L Potassium 3.2 L (3.5-5.1) mmol/L Chloride 96 L (98-107) mmol/L Carbon Dioxide 14 L (22-30) mmol/L BUN 50 H (7-17) mg/dL Creatinine 2.26 H (0.52-1.04) mg/dL POC Glucose (mg/dL) (70-110) mg/dL Calcium (8.4-10.2) mg/dL Cortisol 28.0 H (3.1-22.4) UG/DL 02/22/25 02/23/25 02/23/25 Range/Units 22:19 01:14 02:04 WBC (4.50-10.00) 10*3/uL RBC (4.10-5.20) 10*6/uL Hgb (12.0-15.0) g/dL Hct (37.2-46.3) % MCV (80.0-97.0) fL MCH (27.0-32.0) pg Plt Count (140-440) 10*3/uL MPV (9.5-12.2) fL Immature Gran # (0.00-0.04) 10*3/uL Neutrophils # (1.80-7.70) 10*3/uL Sodium 123 L 123 L (137-145) mmol/L Potassium (3.5-5.1) mmol/L Chloride (98-107) mmol/L Carbon Dioxide (22-30) mmol/L BUN (7-17) mg/dL Creatinine (0.52-1.04) mg/dL POC Glucose (mg/dL) 112 H (70-110) mg/dL Calcium (8.4-10.2) mg/dL Cortisol (3.1-22.4) UG/DL 02/23/25 02/23/25 02/23/25 Range/Units 03:23 05:33 05:33 WBC (4.50-10.00) 10*3/uL RBC (4.10-5.20) 10*6/uL Hgb (12.0-15.0) g/dL Hct (37.2-46.3) % MCV (80.0-97.0) fL MCH (27.0-32.0) pg Plt Count (140-440) 10*3/uL MPV (9.5-12.2) fL Immature Gran # (0.00-0.04) 10*3/uL Neutrophils # (1.80-7.70) 10*3/uL Sodium 122 L 124 L 123 L (137-145) mmol/L Potassium (3.5-5.1) mmol/L Chloride (98-107) mmol/L Carbon Dioxide 15 L (22-30) mmol/L BUN 44 H (7-17) mg/dL Creatinine 1.98 H (0.52-1.04) mg/dL POC Glucose (mg/dL) (70-110) mg/dL Calcium 8.3 L (8.4-10.2) mg/dL Cortisol (3.1-22.4) UG/DL 02/23/25 02/23/25 02/23/25 Range/Units 05:33 09:01 12:03 WBC 17.74 H (4.50-10.00) 10*3/uL RBC 2.84 L (4.10-5.20) 10*6/uL Hgb 7.4 L (12.0-15.0) g/dL Hct 21.2 L (37.2-46.3) % MCV 74.6 L (80.0-97.0) fL MCH 26.1 L (27.0-32.0) pg Plt Count 505 H (140-440) 10*3/uL MPV 8.7 L (9.5-12.2) fL Immature Gran # 0.49 H (0.00-0.04) 10*3/uL Neutrophils # 15.25 H (1.80-7.70) 10*3/uL Sodium 122 L 127 L (137-145) mmol/L Potassium (3.5-5.1) mmol/L Chloride (98-107) mmol/L Carbon Dioxide (22-30) mmol/L BUN (7-17) mg/dL Creatinine (0.52-1.04) mg/dL POC Glucose (mg/dL) (70-110) mg/dL Calcium (8.4-10.2) mg/dL Cortisol (3.1-22.4) UG/DL Microbiology - Last 24 Hours (Table) 02/21/25 15:40 Blood Culture - Preliminary Blood 02/21/25 13:49 Urine Culture - Preliminary Urine,Voided Gram Neg Bacilli Assessment and Plan (1) Sepsis Current Visit: Yes Status: Acute Code(s): A41.9 - SEPSIS, UNSPECIFIED ORGANISM SNOMED Code(s): 91664757 (2) LISSETTE (acute kidney injury) Current Visit: Yes Status: Acute Code(s): N17.9 - ACUTE KIDNEY FAILURE, UNS PECIFIED SNOMED Code(s): 24650387 (3) UTI (urinary tract infection) Current Visit: Yes Status: Acute Code(s): N39.0 - URINARY TRACT INFECTION, SITE NOT SPECIFIED SNOMED Code(s): 68018026 Plan: 1patient presented hospital with sepsis in this patient who did have tachycardia hypotension elevated white count meeting criteria for SIRS/sepsis source likely urinary in this patient has significantly positive UA along with urinary symptoms likely from enteric gram-negative pathogen keeping in mind history of cancer on chemo will need to cover for resistant gram-negative pathogen 2-patient elevated creatinine and high risk of nephrotoxicity from certain antibiotics 3-patient white count is trending down her urine is growing gram-negative with sensitivity pending patient to continue cefepime while waiting for the culture to finalize Dictation was produced using [employer] dictation software. please excuse any grammatical, word or spelling errors. Time with Patient: Less than 30
[2025-02-23 16:30] LABS: Glucose,Whole Blood 102 mg/dL (70-110)
[2025-02-23 18:26] LABS: Potassium 3.7 mmol/L (3.5-5.1)
--- NOTE | 2025-02-23 20:21 | P.PN ---
Subjective Progress Note Date: 02/23/25 Patient is a 55-year-old female with a past medical history of hypertension, hyperlipidemia, diabetes type 2 insulin-dependent, metastatic malignant melanoma with mets to liver and lymph nodes, depression, prior history of smoking, GERD and diabetic peripheral neuropathy and history of SVT, prior history of smoking. Patient presents to ER from Dr. Botello's office due to abnormal labs. Patient was also having generalized weakness. She was in the office for her third infusion. She had blood workup done yesterday which showed multiple abnormalities and was recommended to go to ER. She is also having generalized body pains. Also worsening shortness of breath. No chest pain. She does have decreased appetite and not eating well., No nausea no episodes of vomiting. EKG on admission showed sinus rhythm with heart rate 62 Chest x-ray showed no focal consolidation. Elevation of the right hemidiaphragm which is increased from prior exam. Consider sniff test to evaluate for diaphragmatic paralysis. Laboratory data showed WBC 26.7 hemoglobin 8.8 and platelets 634 MCV 75.3 Sodium 118, potassium 4.1 chloride 93 bicarb is 10 BUN 52 and creatinine 2.96, blood sugar 103 lactic acid 1.1 phosphorus 5.8 alk phos 241 proBNP 2350 lipase 441 Urinalysis showed light yellow turbid with large blood nitrite positive leukocyte esterase large elevated RBCs and WBCs. Influenza A B RSV and COVID-19 PCR not detected. 02/22/2025 Patient is in the MICU. Patient is requiring pressor support with Levophed. Re sting in the bed. Awake alert and oriented. Currently on room air. Afebrile overnight. Denied any complaints of nausea vomiting abdominal pain or diarrhea. Lab data showed WBC trending down to 21.7 hemoglobin 8.2 and platelets 0.91 sodium improved to 121 potassium 4.5 chloride 101 bicarb is 6 BUN 54 and creatinine 2.72. Antibiotics were changed to cefazolin 2 g Q12. Nephrology and ID is on board. 02/24/2024 Patient is needing intensive care unit. Awake alert and oriented x 3. Currently on room air. Patient is off pressor support since 5 AM this morning. Sodium level improved to 127 today. Patient is on antibiotics in the form of cefepime. Urine culture showed Proteus Mirabella's. Laboratory data showed WBC 17.7 hemoglobin 7.4 and platelets 505 sodium 123 potassium 3.6 chloride 98 bicarb is 15 BUN 44 and creatinine 1.98, calcium 8.3. Current medications reviewed. Objective - Vital Signs Vital signs: Vital Signs Temp 97.6 F 02/23/25 08:00 Pulse 102 H 02/23/25 11:00 Resp 14 02/23/25 11:00 BP 125/70 02/23/25 11:00 Pulse Ox 99 02/23/25 11:00 FiO2 Intake & Output 02/22/25 02/23/25 02/23/25 18:59 06:59 18:59 Intake Total 7710.059 4957.128 395 Output Total 400 500 100 Balance 639.701 653.128 295 Weight 156.2 kg Intake: IV 50 825 225 Sodium Chloride 0.45% 1, 825 225 000 ml @ 75 mls/hr IV . [id number] ONE with Sodium Bicarb (1 Meq/ml) 100 ml Rx#:[id number] Sodium Chloride 3%( 50 Hypertonic) 500 ml @ 25 mls/hr IV .Q20H ONE Rx#: [id number] Intake, IV Titration 749.701 78.128 50 Amount Dextrose 5% in Water 1, 300 000 ml @ 150 mls/hr IV . Q6H40M ONE Rx#:[id number] Dextrose 5% in Water 1, 100 000 ml @ 50 mls/hr IV . Q20H ONE Rx#:[id number] Norepinephrine 4 mg In 74.701 78.128 Sodium Chloride 0.9% 250 ml @ 0.03 MCG/KG/MIN 18. 146 mls/hr IV .Q14H [facility] Rx#:[id number] Sodium Chloride 0.45% 1, 225 000 ml @ 75 mls/hr IV . [id number] [facility] with Sodium Bicarb (1 Meq/ml) 100 ml Rx#:[id number] ceFAZolin 2 gm In 50 50 Dextrose 5% in Water 50 ml @ 100 mls/hr IVPB Q12HR [facility] Rx#:[id number] Oral 240 250 120 Output: Urine 400 500 100 Other: Voiding Method External Catheter External Catheter # Voids 1 # Bowel Movements 0 - Exam PHYSICAL EXAMINATION: Patient is lying in the bed, mild distress with pain and anxious., awake alert and oriented. morbid obesity. HEENT: Normocephalic. Neck is supple. Pupils reactive. Nostrils clear. Oral cavity is moist. Neck reveals no JVD, carotid bruits, or thyromegaly. CHEST EXAMINATION: Trachea is central. Symmetrical expansion. Bibasilar diminished sounds otherwise lung gómez clear to auscultation and percussion. CARDIAC: Normal S1, S2 with no gallops. No murmurs ABDOMEN: Soft. Bowel sounds normal. No organomegaly. No abdominal bruits. Extremities: reveal no edema. No clubbing or cyanosis Neurologically awake, alert, oriented x3 with well-coordinated movements. No gross focal deficits noted Skin: No rash or skin lesions. Psychiatric: Coperative. Nonsuicidal Musculoskeletal: No joint swelling or deformity. Normal range of motion. - Labs CBC & Chem 7: 02/23/25 05:33 02/23/25 18:03 Labs: Abnormal Lab Results - Last 24 Hours (Table) 02/22/25 02/22/25 02/22/25 Range/Units 04:35 06:51 11:41 WBC (4.50-10.00) 10*3/uL RBC (4.10-5.20) 10*6/uL Hgb (12.0-15.0) g/dL Hct (37.2-46.3) % MCV (80.0-97.0) fL MCH (27.0-32.0) pg Plt Count (140-440) 10*3/uL MPV (9.5-12.2) fL Immature Gran # (0.00-0.04) 10*3/uL Neutrophils # (1.80-7.70) 10*3/uL Sodium (137-145) mmol/L Potassium (3.5-5.1) mmol/L Chloride (98-107) mmol/L Carbon Dioxide (22-30) mmol/L BUN (7-17) mg/dL Creatinine (0.52-1.04) mg/dL POC Glucose (mg/dL) 68 L (70-110) mg/dL Calcium (8.4-10.2) mg/dL Iron 17 L (50-170) UG/DL % Saturation 7.36 L (12.00-45.00) Transferrin 165.0 L (204.0-354.0) mg/dL Ferritin 501.0 H (10.0-291.0) ng/mL Vitamin B12 3177.0 H (200.0-944.0) pg/mL Cortisol 28.0 H (3.1-22.4) UG/DL 02/22/25 02/22/25 02/22/25 Range/Units 12:00 14:29 18:23 WBC (4.50-10.00) 10*3/uL RBC (4.10-5.20) 10*6/uL Hgb (12.0-15.0) g/dL Hct (37.2-46.3) % MCV (80.0-97.0) fL MCH (27.0-32.0) pg Plt Count (140-440) 10*3/uL MPV (9.5-12.2) fL Immature Gran # (0.00-0.04) 10*3/uL Neutrophils # (1.80-7.70) 10*3/uL Sodium 127 L 125 L 123 L (137-145) mmol/L Potassium 3.2 L (3.5-5.1) mmol/L Chloride 96 L (98-107) mmol/L Carbon Dioxide 14 L (22-30) mmol/L BUN 50 H (7-17) mg/dL Creatinine 2.26 H (0.52-1.04) mg/dL POC Glucose (mg/dL) (70-110) mg/dL Calcium (8.4-10.2) mg/dL Iron (50-170) UG/DL % Saturation (12.00-45.00) Transferrin (204.0-354.0) mg/dL Ferritin (10.0-291.0) ng/mL Vitamin B12 (200.0-944.0) pg/mL Cortisol (3.1-22.4) UG/DL 02/22/25 02/23/25 02/23/25 Range/Units 22:19 01:14 02:04 WBC (4.50-10.00) 10*3/uL RBC (4.10-5.20) 10*6/uL Hgb (12.0-15.0) g/dL Hct (37.2-46.3) % MCV (80.0-97.0) fL MCH (27.0-32.0) pg Plt Count (140-440) 10*3/uL MPV (9.5-12.2) fL Immature Gran # (0.00-0.04) 10*3/uL Neutrophils # (1.80-7.70) 10*3/uL Sodium 123 L 123 L (137-145) mmol/L Potassium (3.5-5.1) mmol/L Chloride (98-107) mmol/L Carbon Dioxide (22-30) mmol/L BUN (7-17) mg/dL Creatinine (0.52-1.04) mg/dL POC Glucose (mg/dL) 112 H (70-110) mg/dL Calcium (8.4-10.2) mg/dL Iron (50-170) UG/DL % Saturation (12.00-45.00) Transferrin (204.0-354.0) mg/dL Ferritin (10.0-291.0) ng/mL Vitamin B12 (200.0-944.0) pg/mL Cortisol (3.1-22.4) UG/DL 02/23/25 02/23/25 02/23/25 Range/Units 03:23 05:33 05:33 WBC (4.50-10.00) 10*3/uL RBC (4.10-5.20) 10*6/uL Hgb (12.0-15.0) g/dL Hct (37.2-46.3) % MCV (80.0-97.0) fL MCH (27.0-32.0) pg Plt Count (140-440) 10*3/uL MPV (9.5-12.2) fL Immature Gran # (0.00-0.04) 10*3/uL Neutrophils # (1.80-7.70) 10*3/uL Sodium 122 L 124 L 123 L (137-145) mmol/L Potassium (3.5-5.1) mmol/L Chloride (98-107) mmol/L Carbon Dioxide 15 L (22-30) mmol/L BUN 44 H (7-17) mg/dL Creatinine 1.98 H (0.52-1.04) mg/dL POC Glucose (mg/dL) (70-110) mg/dL Calcium 8.3 L (8.4-10.2) mg/dL Iron (50-170) UG/DL % Saturation (12.00-45.00) Transferrin (204.0-354.0) mg/dL Ferritin (10.0-291.0) ng/mL Vitamin B12 (200.0-944.0) pg/mL Cortisol (3.1-22.4) UG/DL 02/23/25 02/23/25 Range/Units 05:33 09:01 WBC 17.74 H (4.50-10.00) 10*3/uL RBC 2.84 L (4.10-5.20) 10*6/uL Hgb 7.4 L (12.0-15.0) g/dL Hct 21.2 L (37.2-46.3) % MCV 74.6 L (80.0-97.0) fL MCH 26.1 L (27.0-32.0) pg Plt Count 505 H (140-440) 10*3/uL MPV 8.7 L (9.5-12.2) fL Immature Gran # 0.49 H (0.00-0.04) 10*3/uL Neutrophils # 15.25 H (1.80-7.70) 10*3/uL Sodium 122 L (137-145) mmol/L Potassium (3.5-5.1) mmol/L Chloride (98-107) mmol/L Carbon Dioxide (22-30) mmol/L BUN (7-17) mg/dL Creatinine (0.52-1.04) mg/dL POC Glucose (mg/dL) (70-110) mg/dL Calcium (8.4-10.2) mg/dL Iron (50-170) UG/DL % Saturation (12.00-45.00) Transferrin (204.0-354.0) mg/dL Ferritin (10.0-291.0) ng/mL Vitamin B12 (200.0-944.0) pg/mL Cortisol (3.1-22.4) UG/DL Microbiology - Last 24 Hours (Table) 02/21/25 15:40 Blood Culture - Preliminary Blood 02/21/25 13:49 Urine Culture - Preliminary Urine,Voided Gram Neg Bacilli Assessment and Plan Assessment: Severe hyponatremia with sodium level 118-hypoosmolar hyponatremia due to decreased oral intake and L[place]TE. Acute kidney injury. Possible ATN. SIADH cannot be excluded due to underlying malignancy. Creatinine 2.96 on admission baseline 1.0 Non-anion gap metabolic acidosis Acute urinary tract infection with Proteus Mirabella's. Mild pancreatitis with lipase level 441 Malignant melanoma with mets to liver and lymph nodes. On chemoinfusion and is on follow-up with oncology. Diabetes type 2 insulin-dependent Diabetic peripheral neuropathy History of SVT Paroxysmal atrial fibrillation Osteoarthritis Hypertension Hyperlipidemia GERD Depression Prior history of smoking Microcytic anemia rule out iron deficiency. Hemoglobin 8.8 on admission morbid obesity GI prophylax with PPI and currently on anticoagulation with Eliquis Plan: Patient in the MICU. Continue with telemonitoring. Sodium level improved to 127 today. Metformin, spironolactone and Cozaar is on hold due to acute kidney injury. Reduced Neurontin dose to 600 mg twice daily. Continue with pain management. Renal ultrasound showed no hydronephrosis or nephrolithiasis. Serum osmolality 265., urine osmolality 252. Random urine sodium and protein/creatinine. Continue to follow renal function. Antibiotics changed to cefepime. Continue with insulin regimen and sliding scale and other home medications. Critical care team, nephrology, oncology and ID is on board. Prognosis is gua rded at this time. Time with Patient: Greater than 30
[2025-02-23] MEDS: SODIUM CHLORIDE TAB 1 GM TAB PO STA (21:34)
[2025-02-23 23:43] LABS: Glucose,Whole Blood 124 mg/dL (70-110)
[2025-02-24 05:04] LABS: HGB 7.3 g/dL (12.0-15.0); MCHC 31.7 g/dL (32.0-37.0); MCV 78.8 fL (80.0-97.0); Mean Platelet Volume 8.9 fL (9.5-12.2); Platelet Count 543 10*3/uL (140-440); RBC 2.92 10*6/uL (4.10-5.20); RDW 18.1 % (11.5-14.5); WBC 16.15 10*3/uL (4.50-10.00)
[2025-02-24 05:19] LABS: ALT <6 U/L (4-34); AST 24 U/L (14-36); African American GFR (CKD) 51 (>60 ml/min/1.73 sqM); Albumin 2.4 g/dL (3.5-5.0); Alkaline Phosphatase 182 U/L (38-126); Anion Gap 13 mmol/L; Blood Urea Nitrogen 42 mg/dL (7-17); Calcium 8.6 mg/dL (8.4-10.2); Carbon Dioxide 15 mmol/L (22-30); Chloride 99 mmol/L (98-107); Glucose 82 mg/dL (74-99); Magnesium 1.7 mg/dL (1.6-2.3); Non-African American GFR(CKD) 44 (>60 ml/min/1.73 sqM); Potassium 3.9 mmol/L (3.5-5.1); Sodium 127 mmol/L (137-145); Total Bilirubin 0.3 mg/dL (0.2-1.3); Total Protein 5.6 g/dL (6.3-8.2)
[2025-02-24] MEDS: POTASSIUM CHLORIDE ER 20 MEQ TAB.ER PO SCH (06:08)
[2025-02-24] MEDS: MAGNESIUM SULFATE-D5W PMX 1 GM in DEXTROSE/WATER 1 100ML.BAG IVPB ONE (06:08)
[2025-02-24 06:19] LABS: Glucose,Whole Blood 97 mg/dL (70-110)
--- NOTE | 2025-02-24 09:48 | P.PN ---
Subjective Patient is seen in follow-up for acute kidney injury and hyponatremia. Sodium level stable at 127 this morning. Off IV fluids overnight. Oral intake fair. Vital signs are stable. General: No acute distress. HEENT: Head exam is unremarkable. LUNGS: No audible rhonchi or wheezes. HEART: Rate and Rhythm are regular. ABDOMEN: Nontender. EXTREMITITES: No edema. Objective - Vital Signs Vital signs: Vital Signs Temp 97.6 F 02/24/25 04:00 Pulse 84 02/24/25 07:00 Resp 12 02/24/25 07:00 BP 122/61 02/24/25 07:00 Pulse Ox 97 02/24/25 07:00 FiO2 Intake & Output 02/23/25 02/24/25 02/24/25 18:59 06:59 18:59 Intake Total 790 720 Output Total 700 350 0 Balance 90 370 0 Weight 144.6 kg Intake: IV 225 Sodium Chloride 0.45% 1, 225 000 ml @ 75 mls/hr IV . [id number] ONE with Sodium Bicarb (1 Meq/ml) 100 ml Rx#:[id number] Intake, IV Titration 325 Amount Cefepime 2 gm In Dextrose 100 5% in Water 100 ml @ 25 mls/hr IVPB ONCE ONE Rx#: [id number] Sodium Chloride 3%( 75 Hypertonic) 500 ml @ 25 mls/hr IV .Q20H ONE Rx#: [id number] Sodium Ferric Gluconat- 100 Sucrose 125 mg In Sodium Chloride 0.9% 100 ml @ 100 mls/hr IVPB DAILY [facility] Rx#:[id number] ceFAZolin 2 gm In 50 Dextrose 5% in Water 50 ml @ 100 mls/hr IVPB Q12HR [facility] Rx#:[id number] Oral 240 720 Output: Urine 700 350 0 Other: Voiding Method External Catheter External Catheter # Voids 1 # Bowel Movements 1 - Labs CBC & Chem 7: 02/24/25 04:28 02/24/25 04:28 Labs: Abnormal Lab Results - Last 24 Hours (Table) 02/23/25 02/23/25 02/23/25 Range/Units 09:01 12:03 14:59 WBC (4.50-10.00) 10*3/uL RBC (4.10-5.20) 10*6/uL Hgb (12.0-15.0) g/dL Hct (37.2-46.3) % MCV (80.0-97.0) fL MCH (27.0-32.0) pg MCHC (32.0-37.0) g/dL Plt Count (140-440) 10*3/uL MPV (9.5-12.2) fL Sodium 122 L 127 L 126 L (137-145) mmol/L Carbon Dioxide (22-30) mmol/L BUN (7-17) mg/dL Creatinine (0.52-1.04) mg/dL POC Glucose (mg/dL) (70-110) mg/dL Alkaline Phosphatase (38-126) U/L Total Protein (6.3-8.2) g/dL Albumin (3.5-5.0) g/dL 02/23/25 02/23/25 02/24/25 Range/Units 18:03 23:41 04:28 WBC 16.15 H (4.50-10.00) 10*3/uL RBC 2.92 L (4.10-5.20) 10*6/uL Hgb 7.3 L (12.0-15.0) g/dL Hct 23.0 L (37.2-46.3) % MCV 78.8 L (80.0-97.0) fL MCH 25.0 L (27.0-32.0) pg MCHC 31.7 L (32.0-37.0) g/dL Plt Count 543 H (140-440) 10*3/uL MPV 8.9 L (9.5-12.2) fL Sodium 127 L (137-145) mmol/L Carbon Dioxide (22-30) mmol/L BUN (7-17) mg/dL Creatinine (0.52-1.04) mg/dL POC Glucose (mg/dL) 124 H (70-110) mg/dL Alkaline Phosphatase (38-126) U/L Total Protein (6.3-8.2) g/dL Albumin (3.5-5.0) g/dL 02/24/25 Range/Units 04:28 WBC (4.50-10.00) 10*3/uL RBC (4.10-5.20) 10*6/uL Hgb (12.0-15.0) g/dL Hct (37.2-46.3) % MCV (80.0-97.0) fL MCH (27.0-32.0) pg MCHC (32.0-37.0) g/dL Plt Count (140-440) 10*3/uL MPV (9.5-12.2) fL Sodium 127 L (137-145) mmol/L Carbon Dioxide 15 L (22-30) mmol/L BUN 42 H (7-17) mg/dL Creatinine 1.35 H (0.52-1.04) mg/dL POC Glucose (mg/dL) (70-110) mg/dL Alkaline Phosphatase 182 H (38-126) U/L Total Protein 5.6 L (6.3-8.2) g/dL Albumin 2.4 L (3.5-5.0) g/dL Microbiology - Last 24 Hours (Table) 02/21/25 15:40 Blood Culture - Preliminary Blood 02/21/25 13:49 Urine Culture - Final Urine,Voided Proteus mirabilis Assessment and Plan Plan: Assessment: 1. 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 Urine osmolality 252. Sodium stable at 127 this morning. Cortisol level high. TSH normal. Urine osmolality 252. 2. Malignant melanoma with metastatic disease to liver and lymph nodes. 3. Acute kidney injury secondary to ATN secondary to severe sepsis. Baseline creatinine near 1 from December 2024. Creatinine 2.96 on admission and is 1.35 today. 4. UTI on antibiotics. Urine culture positive for Proteus. 5. Metabolic acidosis secondary to acute kidney injury and IV fluids. Was also on metformin. 6. Diabetes mellitus. 7. Anemia. Iron deficiency noted. Receiving IV iron. Plan: Add urea. Encouraged oral intake. Maintain fluid restriction. Add oral bicarb. Repeat labs in the morning.
[2025-02-24] MEDS: SODIUM BICARB 8.4% 50 ML SYR (1 MEQ/ML) IV STA (10:04)
[2025-02-24] MEDS: SODIUM BICARBONATE TAB 650 MG TAB PO SCH (10:34)
[2025-02-24] MEDS: UREA 15 GM POWD.PACK PO SCH (10:34)
[2025-02-24 11:40] LABS: Glucose,Whole Blood 154 mg/dL (70-110)
--- NOTE | 2025-02-24 12:29 | CDI ---
Documentation Clarification Form Date: 02/24/2025 12:01:21 PM From: Britta Watkins RN CCDS Phone: [phone] Admit Date: 02/21/2025 03:46:00 PM Patient Name: Samina Acosta Visit Number: [id number] Discharge Date: ATTENTION: The Clinical Documentation Specialists (CDI) and [facility] Coding Staff appreciate your assistance in clarifying documentation. Please respond to the clarification below the line at the bottom and electronically sign. The CDI & [facility] Coding staff will review the response and follow-up if needed. Please note: Queries are made part of the Legal Health Record. If you have any questions, please contact the author of this message via ITS. Doctor:Sheet Sepsis is documented 02/21 02/23 ID consult and notes which may lack sufficient clinical evidence/support in the medical record. Additional clarification is requested. History/Risk Factors: 55 year old male presents to the ED from Dr. Bansal office for abnormal labs, generalized weakness. Admitted with Severe hyponatremia sodium level 118, Acute kidney Injury, Acute urinary tract infection. Medical history: Malignant melanoma with mets to liver and lymph nodes. DM2, PAFIB, Osteoarthritis and HTN. 02/21. Clinical Indicators: 02/21, VSS: 02/21 B/P: 106/68, HR 59, Temp 97.0 F Tympanic, RR 18, SpO2 91% ra bmi 48.5kg 02/21, Wbc: 26.75 02/21, Urine Culture: Final Proteus mirabilis 02/21, ID Consult: Patient presented hospital with sepsis in this patient who did have tachycardia, hypotension, and elevated white count meeting criteria for SIRS/sepsis Treatment: 02/22 02/24 Norepinephrine IV, ID Consult above. IV Fluids: 02/21 Lactated Ringers 1L IV Bolus x 3 bags Antibiotics: 02/21 Ceftriaxone IVPB x 1; 02/21 - 02/23 Cefazolin IVPB Q12H; 02/23 Cefepime IVPB x 1; 02/24 Cdftriaxone IVPB x 1; 02/25 Ceftriaxone IVPB Q24H After work up and study, please clarify which diagnosis is most appropriate? [ x] Sepsis ruled out [ ] Sepsis treated prophylactically [ ] Sepsis is a valid diagnosis as evidence by the following: (Please add rationale): [ ] Other, please specify [ ] Unable to determine SIRS Criteria: 2 or more of the following may indicate SIRS Temperature < 96.8F (36C) or > 101.0F (38.3C) Heart Rate > 90 bpm Respiratory Rate > 20 breaths/min or PaCO2 < 32 mmHg White Blood Cell Count > 12,000 or < 4,000 cells/mm3 or > 10% bands (Template Last Reviewed: November 2023) MTDD
--- NOTE | 2025-02-24 14:04 | P.PN ---
Subjective Progress Note Date: 02/24/25 This is a pleasant 55-year-old female patient with a known history of diabetes melitis, type II, hypertension, hyperlipidemia, former smoker, peripheral neuropathy, SVT. She also has a history of metastatic malignant melanoma with mets to the liver and lymph nodes. She was in Dr. Botello's office yesterday for her third infusion of chemotherapy and was found to have abnormal labs and the patient also had generalized weakness. She was referred to the ER for the same. She was found to have a sodium of 118 and was initiated on 3% saline and admitted to the intensive care unit. She is seen today in consultation. She is awake and alert. Quite weak. Maintaining good O2 saturations up to 100% on dahlia m air. She briefly required norepinephrine for hypotension. The most recent sodium was 122. 3% saline is on pause. She has a sodium bicarbonate drip at 75 mL/h. Anticoagulated with Eliquis. White count 21.7. Hemoglobin 8.2. Platelets 591. Potassium 4.5. Bicarb 6. BUN 54. Creatinine 2.72. Glucose 65. Chest x-ray shows no focal consolidation. Some elevation in the right hemidiaphragm. The patient is seen today February 23, 2025 in follow-up in the intensive care unit. She is currently sitting up in bed. Awake and alert in no acute distress. Maintaining O2 saturations in the 90s on room air. She has been off norepinephrine since 5 AM this morning. She is receiving 0.45 normal saline with 2 A of bicarb at 75 mL/h. Her current sodium is 123. Potassium 3.6. Bicarb 15. BUN 44. Creatinine 1.98. Glucose 82. White count 17.7. Hemoglobin 7.4. Platelets 505. She is anticoagulated with Eliquis. She remains on cefazolin. On 02/24/2025, the patient is doing well the patient is recovering from acute septic event related to an underlying urinary tract infection. The patient had an acute kidney injury, she was hypotensive and she was also hyponatremic. The patient was taken off the hypertonic saline solution. Sodium level is gradually improving is currently up to 127 from a baseline of 118. LISSETTE is also improving and the creatinine is down to 1.3. The patient is awake and alert and communicating. She remains on IV Rocephin. She was found to have iron deficien cy anemia and the patient was given IV iron. On her blood work, the patient continues to have a component of an anion gap metabolic acidosis. The patient was started on oral bicarb. Serum bicarbonate 15, sodium levels at 127 with a potassium level of 3.9. Chloride is 99, WBC count 16.1 with a hemoglobin 7.3 and a platelet count of 543. The patient otherwise remains on long-term anticoagulation with Eliquis. The patient is known to have metastatic melanoma, treated with immunotherapy in outpatient basis. Patient is also on Lantus insulin 50 units and sliding scale coverage. She is diabetic. She has hypertension hyperlipidemia and peripheral neuropathy. Anticoagulation was given for paroxysmal atrial fibrillation. Objective - Vital Signs Vital signs: Vital Signs Temp 97.6 F 02/24/25 04:00 Pulse 84 02/24/25 07:00 Resp 12 02/24/25 07:00 BP 122/61 02/24/25 07:00 Pulse Ox 97 02/24/25 07:00 FiO2 Intake & Output 02/23/25 02/24/25 02/24/25 18:59 06:59 18:59 Intake Total 790 720 Output Total 700 350 0 Balance 90 370 0 Weight 144.6 kg Intake: IV 225 Sodium Chloride 0.45% 1, 225 000 ml @ 75 mls/hr IV . [id number] ONE with Sodium Bicarb (1 Meq/ml) 100 ml Rx#:[id number] Intake, IV Titration 325 Amount Cefepime 2 gm In Dextrose 100 5% in Water 100 ml @ 25 mls/hr IVPB ONCE ONE Rx#: [id number] Sodium Chloride 3%( 75 Hypertonic) 500 ml @ 25 mls/hr IV .Q20H ONE Rx#: [id number] Sodium Ferric Gluconat- 100 Sucrose 125 mg In Sodium Chloride 0.9% 100 ml @ 100 mls/hr IVPB DAILY [facility] Rx#:[id number] ceFAZolin 2 gm In 50 Dextrose 5% in Water 50 ml @ 100 mls/hr IVPB Q12HR [facility] Rx#:[id number] Oral 240 720 Output: Urine 700 350 0 Other: Voiding Method External Catheter External Catheter # Voids 1 # Bowel Movements 1 - Exam The patient appeared well nourished and normally developed. Vital signs as documented. Morbidly obese with a BMI of 48.5 Head exam is unremarkable. No scleral icterus or corneal arcus noted. Neck is without jugular venous distension, thyromegaly, or carotid bruits. Carotid upstrokes are brisk bilaterally. Lungs are clear to auscultation and percussion. Cardiac exam reveals the PMI to be normally sized and situated. Rhythm is regular. First and second heart sounds normal. No murmurs, rubs or gallops. Abdominal exam reveals normal bowel sounds, no masses, no organomegaly and no ao rtic enlargement. On her pelvic examination, the patient has an irregular mass in her vulva consistent with melanoma Extremities are nonedematous and both femoral and pedal pulses are normal. Examination of the skin revealed no evidence of significant rashes, suspicious appearing nevi or other concerning lesions. Neurologically, the patient is awake and alert and the patient does not have any focal neurological deficit. Cranial nerves are essentially intact. - Labs CBC & Chem 7: 02/24/25 04:02/24/25 04:28 Labs: Abnormal Lab Results - Last 24 Hours (Table) 02/23/25 02/23/25 02/23/25 Range/Units 12:03 14:59 18:03 WBC (4.50-10.00) 10*3/uL RBC (4.10-5.20) 10*6/uL Hgb (12.0-15.0) g/dL Hct (37.2-46.3) % MCV (80.0-97.0) fL MCH (27.0-32.0) pg MCHC (32.0-37.0) g/dL Plt Count (140-440) 10*3/uL MPV (9.5-12.2) fL Sodium 127 L 126 L 127 L (137-145) mmol/L Carbon Dioxide (22-30) mmol/L BUN (7-17) mg/dL Creatinine (0.52-1.04) mg/dL POC Glucose (mg/dL) (70-110) mg/dL Alkaline Phosphatase (38-126) U/L Total Protein (6.3-8.2) g/dL Albumin (3.5-5.0) g/dL 02/23/25 02/24/25 02/24/25 Range/Units 23:41 04:28 04:28 WBC 16.15 H (4.50-10.00) 10*3/uL RBC 2.92 L (4.10-5.20) 10*6/uL Hgb 7.3 L (12.0-15.0) g/dL Hct 23.0 L (37.2-46.3) % MCV 78.8 L (80.0-97.0) fL MCH 25.0 L (27.0-32.0) pg MCHC 31.7 L (32.0-37.0) g/dL Plt Count 543 H (140-440) 10*3/uL MPV 8.9 L (9.5-12.2) fL Sodium 127 L (137-145) mmol/L Carbon Dioxide 15 L (22-30) mmol/L BUN 42 H (7-17) mg/dL Creatinine 1.35 H (0.52-1.04) mg/dL POC Glucose (mg/dL) 124 H (70-110) mg/dL Alkaline Phosphatase 182 H (38-126) U/L Total Protein 5.6 L (6.3-8.2) g/dL Albumin 2.4 L (3.5-5.0) g/dL Microbiology - Last 24 Hours (Table) 02/21/25 15:40 Blood Culture - Preliminary Blood 02/21/25 13:49 Urine Culture - Final Urine,Voided Proteus mirabilis Assessment and Plan Plan: Acute sepsis, likely secondary underlying urine tract infection. Urine cultures positive for Klebsiella pneumoniae and the patient remains on IV Rocephin. Hemodynamically stable on no pressors Acute leukocytosis, improving Acute kidney injury, improving and creatinine is down to 1.3 Acute hyponatremia likely secondary acute kidney injury and sepsis. Blood work was also suggestive of SIADH and the patient was treated with 3% hypertonic saline and the patient is currently receiving fluid restriction. Morbid obesity with a BMI of 48.5 Malignant melanoma with metastatic disease to the liver and lymph nodes, received 3 cycles of Opdualag thus far. The patient has a pelvic mass/vaginal mass consistent with melanoma. Metabolic acidosis secondary to above, essentially anion gap metabolic acidosis and the patient is currently on oral bicarb. Serum bicarb is up to 15 Urinary tract infection secondary to gram-negative bacilli, cultures are positive for Proteus mirabilis Paroxysmal A-fib, currently on anticoagulation with Eliquis. Cardiac rhythm is sinus. Iron deficiency anemia, currently on IV iron Diabetes mellitus type 2 History of UTIs History of hypertension Hyperlipidemia Plan: Patient currently on room air oxygen Hemodynamically stable on no pressors Sodium levels are improving Renal function is improving Fluid restriction Oral bicarb IV Rocephin No pressors for now Continue anticoagulation with Eliquis Will continue to follow Evaluation was done and 32 minutes Time with Patient: Greater than 30
[2025-02-24 17:02] LABS: Glucose,Whole Blood 135 mg/dL (70-110)
[2025-02-24 19:43] LABS: Glucose,Whole Blood 151 mg/dL (70-110)
--- NOTE | 2025-02-24 22:28 | P.PN ---
Subjective Progress Note Date: 02/24/25 Patient is a 55-year-old female with a past medical history of hypertension, hyperlipidemia, diabetes type 2 insulin-dependent, metastatic malignant melanoma with mets to liver and lymph nodes, depression, prior history of smoking, GERD and diabetic peripheral neuropathy and history of SVT, prior history of smoking. Patient presents to ER from Dr. Botello's office due to abnormal labs. Patient was also having generalized weakness. She was in the office for her third infusion. She had blood workup done yesterday which showed multiple abnormalities and was recommended to go to ER. She is also having generalized body pains. Also worsening shortness of breath. No chest pain. She does have decreased appetite and not eating well., No nausea no episodes of vomiting. EKG on admission showed sinus rhythm with heart rate 62 Chest x-ray showed no focal consolidation. Elevation of the right hemidiaphragm which is increased from prior exam. Consider sniff test to evaluate for diaphragmatic paralysis. Laboratory data showed WBC 26.7 hemoglobin 8.8 and platelets 634 MCV 75.3 Sodium 118, potassium 4.1 chloride 93 bicarb is 10 BUN 52 and creatinine 2.96, blood sugar 103 lactic acid 1.1 phosphorus 5.8 alk phos 241 proBNP 2350 lipase 441 Urinalysis showed light yellow turbid with large blood nitrite positive leukocyte esterase large elevated RBCs and WBCs. Influenza A B RSV and COVID-19 PCR not detected. 02/22/2025 Patient is in the MICU. Patient is requiring pressor support with Levophed. Re sting in the bed. Awake alert and oriented. Currently on room air. Afebrile overnight. Denied any complaints of nausea vomiting abdominal pain or diarrhea. Lab data showed WBC trending down to 21.7 hemoglobin 8.2 and platelets 0.91 sodium improved to 121 potassium 4.5 chloride 101 bicarb is 6 BUN 54 and creatinine 2.72. Antibiotics were changed to cefazolin 2 g Q12. Nephrology and ID is on board. 02/24/2024 Patient is needing intensive care unit. Awake alert and oriented x 3. Currently on room air. Patient is off pressor support since 5 AM this morning. Sodium level improved to 127 today. Patient is on antibiotics in the form of cefepime. Urine culture showed Proteus Mirabella's. Laboratory data showed WBC 17.7 hemoglobin 7.4 and platelets 505 sodium 123 potassium 3.6 chloride 98 bicarb is 15 BUN 44 and creatinine 1.98, calcium 8.3. 02/24/2025 Patient is in MICU. Ureteric and ovarian x 3. Currently on room air. No complaints of chest pain or shortness of breath. Sodium level improved to 127 today. Patient is also been antibiotics for urinary tract infection with ceftri axone. Urine culture growing Proteus mirabilis. Patient has been afebrile. Patient was given urea 15 g p.o. twice daily. Continued on insulin regimen. Laboratory test showed WBC 16.1 hemoglobin 7.3 and platelets 543 sodium 127 potassium 3.8 chloride 98 bicarb is 15 BUN 4020 creatinine 1.35 and blood sugar 82 magnesium 1.7 albumin 2.4. Current medications reviewed. Objective - Vital Signs Vital signs: Vital Signs Temp 97.8 F 02/24/25 16:00 Pulse 98 02/24/25 16:00 Resp 18 02/24/25 16:00 BP 112/47 02/24/25 16:00 Pulse Ox 98 02/24/25 16:00 FiO2 Intake & Output 02/24/25 02/24/25 02/25/25 06:59 18:59 06:59 Intake Total 720 160 Output Total 350 1150 Balance 370 -990 Weight 144.6 kg 144.6 kg Intake: IV 150 Sodium Ferric Gluconat- 100 Sucrose 125 mg In Sodium Chloride 0.9% 100 ml @ 100 mls/hr IVPB DAILY [facility] Rx#:[id number] ceFAZolin 2 gm In 50 Dextrose 5% in Water 50 ml @ 100 mls/hr IVPB Q12HR [facility] Rx#:[id number] Oral 720 10 Output: Urine 350 1150 Other: Voiding Method External Catheter External Catheter # Bowel Movements 1 - Exam PHYSICAL EXAMINATION: Patient is lying in the bed, mild distress with pain and anxious., awake alert and oriented. morbid obesity. HEENT: Normocephalic. Neck is supple. Pupils reactive. Nostrils clear. Oral cavity is moist. Neck reveals no JVD, carotid bruits, or thyromegaly. CHEST EXAMINATION: Trachea is central. Symmetrical expansion. Bibasilar diminished sounds otherwise lung gómez clear to auscultation and percussion. CARDIAC: Normal S1, S2 with no gallops. No murmurs ABDOMEN: Soft. Bowel sounds normal. No organomegaly. No abdominal bruits. Extremities: reveal no edema. No clubbing or cyanosis Neurologically awake, alert, oriented x3 with well-coordinated movements. No g ross focal deficits noted Skin: No rash or skin lesions. Psychiatric: Coperative. Nonsuicidal Musculoskeletal: No joint swelling or deformity. Normal range of motion. - Labs CBC & Chem 7: 02/24/25 04:28 02/24/25 04:28 Labs: Abnormal Lab Results - Last 24 Hours (Table) 02/23/25 02/24/25 02/24/25 Range/Units 23:41 04:28 04:28 WBC 16.15 H (4.50-10.00) 10*3/uL RBC 2.92 L (4.10-5.20) 10*6/uL Hgb 7.3 L (12.0-15.0) g/dL Hct 23.0 L (37.2-46.3) % MCV 78.8 L (80.0-97.0) fL MCH 25.0 L (27.0-32.0) pg MCHC 31.7 L (32.0-37.0) g/dL Plt Count 543 H (140-440) 10*3/uL MPV 8.9 L (9.5-12.2) fL Sodium 127 L (137-145) mmol/L Carbon Dioxide 15 L (22-30) mmol/L BUN 42 H (7-17) mg/dL Creatinine 1.35 H (0.52-1.04) mg/dL POC Glucose (mg/dL) 124 H (70-110) mg/dL Alkaline Phosphatase 182 H (38-126) U/L Total Protein 5.6 L (6.3-8.2) g/dL Albumin 2.4 L (3.5-5.0) g/dL 02/24/25 02/24/25 Range/Units 11:39 17:00 WBC (4.50-10.00) 10*3/uL RBC (4.10-5.20) 10*6/uL Hgb (12.0-15.0) g/dL Hct (37.2-46.3) % MCV (80.0-97.0) fL MCH (27.0-32.0) pg MCHC (32.0-37.0) g/dL Plt Count (140-440) 10*3/uL MPV (9.5-12.2) fL Sodium (137-145) mmol/L Carbon Dioxide (22-30) mmol/L BUN (7-17) mg/dL Creatinine (0.52-1.04) mg/dL POC Glucose (mg/dL) 154 H 135 H (70-110) mg/dL Alkaline Phosphatase (38-126) U/L Total Protein (6.3-8.2) g/dL Albumin (3.5-5.0) g/dL Microbiology - Last 24 Hours (Table) 02/21/25 15:40 Blood Culture - Preliminary Blood 02/21/25 13:49 Urine Culture - Final Urine,Voided Proteus mirabilis Assessment and Plan Assessment: Severe hyponatremia with sodium level 118 on admission-hypoosmolar hyponatremia due to decreased oral intake and LISSETTE. Acute kidney injury. Possible ATN. SIADH cannot be excluded due to underlying malignancy. Creatinine 2.96 on admission baseline 1.0 Non-anion gap metabolic acidosis Acute urinary tract infection with Proteus Mirabella's. Mild pancreatitis with lipase level 441 Malignant melanoma with mets to liver and lymph nodes. On chemoinfusion and is on follow-up with oncology. Diabetes type 2 insulin-dependent Diabetic peripheral neuropathy History of SVT Paroxysmal atrial fibrillation Osteoarthritis Hypertension Hyperlipidemia GERD Depression Prior history of smoking Microcytic anemia rule out iron deficiency. Hemoglobin 8.8 on admission morbid obesity GI prophylax with PPI and currently on anticoagulation with Eliquis Plan: Patient in the MICU. Continue with telemonitoring. Sodium level improved to 127 today. Metformin, spironolactone and Cozaar is on hold due to acute kidney injury. Reduced Neurontin dose to 600 mg twice daily. Continue with pain management. Renal ultrasound showed no hydronephrosis or nephrolithiasis. Serum osmolality 265., urine osmolality 252. Continue to follow renal function. Creatinine is improving. Patient was given sodium bicarb IV today. Antibiotics changed to ceftriaxone. Continue with insulin regimen and sliding scale and other home medications. Critical care team, nephrology, oncology and ID is on board. Prognosis is guar ded at this time. Time with Patient: Greater than 30
[2025-02-25 02:29] LABS: Glucose,Whole Blood 134 mg/dL (70-110)
[2025-02-25 05:13] LABS: Glucose,Whole Blood 136 mg/dL (70-110)
[2025-02-25 06:35] LABS: African American GFR (CKD) 68 (>60 ml/min/1.73 sqM); Anion Gap 10 mmol/L; Blood Urea Nitrogen 56 mg/dL (7-17); Calcium 8.4 mg/dL (8.4-10.2); Carbon Dioxide 19 mmol/L (22-30); Chloride 97 mmol/L (98-107); Glucose 125 mg/dL (74-99); Magnesium 1.9 mg/dL (1.6-2.3); Non-African American GFR(CKD) 59 (>60 ml/min/1.73 sqM); Potassium 3.9 mmol/L (3.5-5.1); Sodium 126 mmol/L (137-145)
[2025-02-25] MEDS: cefTRIAXone 2 GM in DEXTROSE 5% IN WATER 50 ML IVPB SCH (08:53)
--- NOTE | 2025-02-25 10:15 | P.PN ---
Subjective Patient is seen in follow-up for acute kidney injury and hyponatremia. Sodium level stable at 126 this morning. Off IV fluids has been getting urea. Oral intake fair. Vital signs are stable. General: No acute distress. HEENT: Head exam is unremarkable. LUNGS: No audible rhonchi or wheezes. HEART: Rate and Rhythm are regular. ABDOMEN: Nontender. EXTREMITITES: No edema. Objective - Vital Signs Vital signs: Vital Signs Temp 98.0 F 02/25/25 04:00 Pulse 72 02/25/25 04:00 Resp 16 02/25/25 04:00 BP 110/54 02/25/25 04:00 Pulse Ox 97 02/25/25 04:00 FiO2 Intake & Output 02/24/25 02/25/25 02/25/25 18:59 06:59 18:59 Intake Total 160 900 180 Output Total 1150 600 Balance -990 300 180 Weight 144.6 kg 145.2 kg Intake: IV 150 Sodium Ferric Gluconat- 100 Sucrose 125 mg In Sodium Chloride 0.9% 100 ml @ 100 mls/hr IVPB DAILY [facility] Rx#:[id number] ceFAZolin 2 gm In 50 Dextrose 5% in Water 50 ml @ 100 mls/hr IVPB Q12HR [facility] Rx#:[id number] Oral 10 900 180 Output: Urine 1150 600 Other: Voiding Method External Catheter External Catheter # Voids 1 # Bowel Movements 1 - Labs CBC & Chem 7: 02/24/25 04:28 02/25/25 05:56 Labs: Abnormal Lab Results - Last 24 Hours (Table) 02/22/25 02/24/25 02/24/25 Range/Units 04:41 11:39 17:00 Sodium (137-145) mmol/L Chloride (98-107) mmol/L Carbon Dioxide (22-30) mmol/L BUN (7-17) mg/dL Creatinine (0.52-1.04) mg/dL Glucose (74-99) mg/dL POC Glucose (mg/dL) 154 H 135 H (70-110) mg/dL RBC Folate 1,003 H (280 - 791) ng/mL 02/24/25 02/25/25 02/25/25 Range/Units 19:43 02:27 05:11 Sodium (137-145) mmol/L Chloride (98-107) mmol/L Carbon Dioxide (22-30) mmol/L BUN (7-17) mg/dL Creatinine (0.52-1.04) mg/dL Glucose (74-99) mg/dL POC Glucose (mg/dL) 151 H 134 H 136 H (70-110) mg/dL RBC Folate (280 - 791) ng/mL 02/25/25 Range/Units 05:56 Sodium 126 L (137-145) mmol/L Chloride 97 L (98-107) mmol/L Carbon Dioxide 19 L (22-30) mmol/L BUN 56 H (7-17) mg/dL Creatinine 1.06 H (0.52-1.04) mg/dL Glucose 125 H (74-99) mg/dL POC Glucose (mg/dL) (70-110) mg/dL RBC Folate (280 - 791) ng/mL Microbiology - Last 24 Hours (Table) 02/21/25 15:40 Blood Culture - Preliminary Blood Assessment and Plan Plan: Assessment: 1. 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 Urine osmolality 252. Sodium stable at 126 this morning. Cortisol level high. TSH normal. Urine osmolality 252. 2. Malignant melanoma with metastatic disease to liver and lymph nodes. 3. Acute kidney injury secondary to ATN secondary to severe sepsis. Baseline creatinine near 1 from December 2024. Creatinine 2.96 on admission and is 1.06 today. 4. UTI on antibiotics. Urine culture positive for Proteus. 5. Metabolic acidosis secondary to acute kidney injury and IV fluids. Was also on metformin. On oral bicarb. Better. 6. Diabetes mellitus. 7. Anemia. Iron deficiency noted. Receiving IV iron. Plan: Maintain urea. Encouraged oral intake. Maintain fluid restriction. Samsca x 1 dose today. Repeat labs in the morning.
[2025-02-25] MEDS: TOLVAPTAN 15 MG TABLET PO ONE (11:01)
[2025-02-25 11:39] LABS: Glucose,Whole Blood 138 mg/dL (70-110)
--- NOTE | 2025-02-25 15:21 | P.PN ---
Subjective Progress Note Date: 02/25/25 This is a pleasant 55-year-old female patient with a known history of diabetes melitis, type II, hypertension, hyperlipidemia, former smoker, peripheral neuropathy, SVT. She also has a history of metastatic malignant melanoma with mets to the liver and lymph nodes. She was in Dr. Botello's office yesterday for her third infusion of chemotherapy and was found to have abnormal labs and the patient also had generalized weakness. She was referred to the ER for the same. She was found to have a sodium of 118 and was initiated on 3% saline and admitted to the intensive care unit. She is seen today in consultation. She is awake and alert. Quite weak. Maintaining good O2 saturations up to 100% on dahlia m air. She briefly required norepinephrine for hypotension. The most recent sodium was 122. 3% saline is on pause. She has a sodium bicarbonate drip at 75 mL/h. Anticoagulated with Eliquis. White count 21.7. Hemoglobin 8.2. Platelets 591. Potassium 4.5. Bicarb 6. BUN 54. Creatinine 2.72. Glucose 65. Chest x-ray shows no focal consolidation. Some elevation in the right hemidiaphragm. The patient is seen today February 23, 2025 in follow-up in the intensive care unit. She is currently sitting up in bed. Awake and alert in no acute distress. Maintaining O2 saturations in the 90s on room air. She has been off norepinephrine since 5 AM this morning. She is receiving 0.45 normal saline with 2 A of bicarb at 75 mL/h. Her current sodium is 123. Potassium 3.6. Bicarb 15. BUN 44. Creatinine 1.98. Glucose 82. White count 17.7. Hemoglobin 7.4. Platelets 505. She is anticoagulated with Eliquis. She remains on cefazolin. On 02/24/2025, the patient is doing well the patient is recovering from acute septic event related to an underlying urinary tract infection. The patient had an acute kidney injury, she was hypotensive and she was also hyponatremic. The patient was taken off the hypertonic saline solution. Sodium level is gradually improving is currently up to 127 from a baseline of 118. LISSETTE is also improving and the creatinine is down to 1.3. The patient is awake and alert and communicating. She remains on IV Rocephin. She was found to have iron deficien cy anemia and the patient was given IV iron. On her blood work, the patient continues to have a component of an anion gap metabolic acidosis. The patient was started on oral bicarb. Serum bicarbonate 15, sodium levels at 127 with a potassium level of 3.9. Chloride is 99, WBC count 16.1 with a hemoglobin 7.3 and a platelet count of 543. The patient otherwise remains on long-term anticoagulation with Eliquis. The patient is known to have metastatic melanoma, treated with immunotherapy in outpatient basis. Patient is also on Lantus insulin 50 units and sliding scale coverage. She is diabetic. She has hypertension hyperlipidemia and peripheral neuropathy. Anticoagulation was given for paroxysmal atrial fibrillation. On 02/25/2025, the patient has no specific complaints. Doing well. Awake and alert send the patient is currently on room air oxygen. Blood work from today shows a sodium level of 126, serum bicarbonate 19, BUN 56 with a creatinine of 1.06. The patient had a white cell count from yesterday that was down to 16.1 and a hemoglobin of 7.3. Nephrology on the case regarding his ongoing hyponatremia. The patient remains on IV Rocephin regarding a Proteus mirabilis urinary tract infection. She is afebrile and she is hemodynamically stable. The patient will be given a dose of Samsca by nephrology. Remains on oral bicarb. Remains on IV iron. She remains on anticoagulation regarding paroxysmal atrial fibrillation. She is diabetic and she is known to have hy pertension hyperlipidemia and peripheral neuropathy. Remains on Lantus insulin 50 units daily. Objective - Vital Signs Vital signs: Vital Signs Temp 98.0 F 02/25/25 04:00 Pulse 72 02/25/25 04:00 Resp 16 02/25/25 04:00 BP 110/54 02/25/25 04:00 Pulse Ox 97 02/25/25 04:00 FiO2 Intake & Output 02/24/25 02/25/25 02/25/25 18:59 06:59 18:59 Intake Total 160 900 180 Output Total 1150 600 Balance -990 300 180 Weight 144.6 kg 145.2 kg Intake: IV 150 Sodium Ferric Gluconat- 100 Sucrose 125 mg In Sodium Chloride 0.9% 100 ml @ 100 mls/hr IVPB DAILY [facility] Rx#:[id number] ceFAZolin 2 gm In 50 Dextrose 5% in Water 50 ml @ 100 mls/hr IVPB Q12HR [facility] Rx#:[id number] Oral 10 900 180 Output: Urine 1150 600 Other: Voiding Method External Catheter External Catheter # Voids 1 # Bowel Movements 1 - Exam The patient appeared well nourished and normally developed. Vital signs as documented. Morbidly obese with a BMI of 48.5 Head exam is unremarkable. No scleral icterus or corneal arcus noted. Neck is without jugular venous distension, thyromegaly, or carotid bruits. Carotid upstrokes are brisk bilaterally. Lungs are clear to auscultation and percussion. Cardiac exam reveals the PMI to be normally sized and situated. Rhythm is regular. First and second heart sounds normal. No murmurs, rubs or gallops. Abdominal exam reveals normal bowel sounds, no masses, no organomegaly and no aortic enlargement. On her pelvic examination, the patient has an irregular mass in her vulva consistent with melanoma Extremities are nonedematous and both femoral and pedal pulses are normal. Examination of the skin revealed no evidence of significant rashes, suspicious appearing nevi or other concerning lesions. Neurologically, the patient is awake and alert and the patient does not have any focal neurological deficit. Cranial nerves are essentially intact. - Labs CBC & Chem 7: 02/24/25 04:28 02/25/25 05:56 Labs: Abnormal Lab Results - Last 24 Hours (Table) 02/22/25 02/24/25 02/24/25 Range/Units 04:41 11:39 17:00 Sodium (137-145) mmol/L Chloride (98-107) mmol/L Carbon Dioxide (22-30) mmol/L BUN (7-17) mg/dL Creatinine (0.52-1.04) mg/dL Glucose (74-99) mg/dL POC Glucose (mg/dL) 154 H 135 H (70-110) mg/dL RBC Folate 1,003 H (280 - 791) ng/mL 02/24/25 02/25/25 02/25/25 Range/Units 19:43 02:27 05:11 Sodium (137-145) mmol/L Chloride (98-107) mmol/L Carbon Dioxide (22-30) mmol/L BUN (7-17) mg/dL Creatinine (0.52-1.04) mg/dL Glucose (74-99) mg/dL POC Glucose (mg/dL) 151 H 134 H 136 H (70-110) mg/dL RBC Folate (280 - 791) ng/mL 02/25/25 Range/Units 05:56 Sodium 126 L (137-145) mmol/L Chloride 97 L (98-107) mmol/L Carbon Dioxide 19 L (22-30) mmol/L BUN 56 H (7-17) mg/dL Creatinine 1.06 H (0.52-1.04) mg/dL Glucose 125 H (74-99) mg/dL POC Glucose (mg/dL) (70-110) mg/dL RBC Folate (280 - 791) ng/mL Microbiology - Last 24 Hours (Table) 02/21/25 15:40 Blood Culture - Preliminary Blood Assessment and Plan Plan: Acute sepsis, likely secondary underlying urine tract infection. Urine cultures positive for Klebsiella pneumoniae and the patient remains on IV Rocephin. Hemodynamically stable on no pressors Acute leukocytosis, improving Acute kidney injury, improving and the creatinine seems to be normalizing Acute hyponatremia likely secondary acute kidney injury and sepsis. Blood work was also suggestive of SIADH and the patient was treated with 3% hypertonic saline and the patient is currently receiving fluid restriction. Sodium level today is at 126. The patient continues to receive fluid restriction. Will be given a dose of Samsca today. Morbid obesity with a BMI of 48.5 Malignant melanoma with metastatic disease to the liver and lymph nodes, received 3 cycles of Opdualag thus far. The patient has a pelvic mass/vaginal mass consistent with melanoma. Metabolic acidosis secondary to above, essentially anion gap metabolic acidosis and the patient is currently on oral bicarb. Serum bicarb is improving and the patient remains on oral bicarbonate replacement. Urinary tract infection secondary to gram-negative bacilli, cultures are positive for Proteus mirabilis Paroxysmal A-fib, currently on anticoagulation with Eliquis. Cardiac rhythm is sinus. Iron deficiency anemia, currently on IV iron Diabetes mellitus type 2, currently on Lantus insulin. History of UTIs History of hypertension Hyperlipidemia Plan: Patient currently on room air oxygen Hemodynamically stable on no pressors Sodium levels are still low, will be managed by nephrology. Being given a dose of Samsca. Renal function is improving Fluid restriction Oral bicarb IV Rocephin No pressors for now Continue anticoagulation with Eliquis Will continue to follow Evaluation was done and 32 minutes Time with Patient: Greater than 30
[2025-02-25 17:03] LABS: Glucose,Whole Blood 161 mg/dL (70-110)
--- NOTE | 2025-02-25 17:58 | P.PN ---
Subjective Progress Note Date: 02/25/25 Patient seen in ICU today. Showing improvement since admit. Pt still lethargic but is answering questions appropriately. Na 126. WBC 16.1, hgb 7.3, plt 543 Objective - Vital Signs Vital signs: Vital Signs Temp 97.4 F L 02/25/25 08:00 Pulse 71 02/25/25 08:00 Resp 16 02/25/25 08:00 BP 128/66 02/25/25 08:00 Pulse Ox 97 02/25/25 08:00 FiO2 Intake & Output 02/24/25 02/25/25 02/25/25 18:59 06:59 18:59 Intake Total 160 900 180 Output Total 1150 600 Balance -990 300 180 Weight 144.6 kg 145.2 kg Intake: IV 150 Sodium Ferric Gluconat- 100 Sucrose 125 mg In Sodium Chloride 0.9% 100 ml @ 100 mls/hr IVPB DAILY [facility] Rx#:[id number] ceFAZolin 2 gm In 50 Dextrose 5% in Water 50 ml @ 100 mls/hr IVPB Q12HR [facility] Rx#:[id number] Oral 10 900 180 Output: Urine 1150 600 Other: Voiding Method External Catheter External Catheter External Catheter # Voids 1 1 # Bowel Movements 1 - Constitutional General appearance: Present: obese - EENT Eyes: Present: anicteric sclerae, EOMI ENT: Present: hearing grossly normal - Respiratory Details: breathing is even and unlabored - Cardiovascular Details: skin warm and dry - Integumentary Integumentary: Absent: cyanotic, jaundiced - Musculoskeletal Musculoskeletal: Present: generalized weakness - Labs CBC & Chem 7: 02/24/25 04:28 02/25/25 05:56 Labs: Abnormal Lab Results - Last 24 Hours (Table) 02/22/25 02/24/25 02/24/25 Range/Units 04:41 17:00 19:43 Sodium (137-145) mmol/L Chloride (98-107) mmol/L Carbon Dioxide (22-30) mmol/L BUN (7-17) mg/dL Creatinine (0.52-1.04) mg/dL Glucose (74-99) mg/dL POC Glucose (mg/dL) 135 H 151 H (70-110) mg/dL RBC Folate 1,003 H (280 - 791) ng/mL 02/25/25 02/25/25 02/25/25 Range/Units 02:27 05:11 05:56 Sodium 126 L (137-145) mmol/L Chloride 97 L (98-107) mmol/L Carbon Dioxide 19 L (22-30) mmol/L BUN 56 H (7-17) mg/dL Creatinine 1.06 H (0.52-1.04) mg/dL Glucose 125 H (74-99) mg/dL POC Glucose (mg/dL) 134 H 136 H (70-110) mg/dL RBC Folate (280 - 791) ng/mL 02/25/25 Range/Units 11:37 Sodium (137-145) mmol/L Chloride (98-107) mmol/L Carbon Dioxide (22-30) mmol/L BUN (7-17) mg/dL Creatinine (0.52-1.04) mg/dL Glucose (74-99) mg/dL POC Glucose (mg/dL) 138 H (70-110) mg/dL RBC Folate (280 - 791) ng/mL Microbiology - Last 24 Hours (Table) 02/21/25 15:40 Blood Culture - Preliminary Blood Assessment and Plan (1) LISSETTE (acute kidney injury) Current Visit: Yes Status: Acute Code(s): N17.9 - ACUTE KIDNEY FAILURE, UNSPECIFIED SNOMED Code(s): 61201863 (2) Hyponatremia Current Visit: Yes Status: Acute Code(s): E87.1 - HYPO-OSMOLALITY AND HYPONATREMIA SNOMED Code(s): 83056265 (3) Sepsis Current Visit: Yes Status: Acute Code(s): A41.9 - SEPSIS, UNSPECIFIED ORGANISM SNOMED Code(s): 40392021 (4) Melanoma Current Visit: Yes Status: Acute Priority: High Code(s): C43.9 - MALIGNANT MELANOMA OF SKIN, UNSPECIFIED SNOMED Code(s): 386909701 Plan: 1. Severe hyponatremia 2. LISSETTE 3. Anemia 4. Metastatic malignant melanoma 5. Dehydration Plan: Ms. Acosta is a very pleasant 55-year-old female with multiple comorbidities including malignant metastatic melanoma, recently started on dual immunotherapy with Opdualag, status post cycle 3 on 02/17/2025 who is here for abnormal labs and slowly worsening symptoms of weakness. She has had significantly decreased oral intake. Also with persistent vaginal bleeding from her melanoma. Found to have severe hyponatremia, LISSETTE/UTI, and elevated BNP. She was admitted to the ICU for close monitoring and correction of her hyponatremia. - Severe hyponatremia likely component due to SIADH, slowly improving - LISSETTE improving - Nephrology on board, pulm/CC on board - Continues on IV abx for UTI - TSH normal, cortisol elevated - IV iron started - Hgb 7.3, WBC 16.1, plt 543 - Monitor CBC Discussed with patient she is agreeable to plan. All of her questions were answered.
--- NOTE | 2025-02-25 20:42 | P.PN ---
Subjective Progress Note Date: 02/25/25 Patient is a 55-year-old female with a past medical history of hypertension, hyperlipidemia, diabetes type 2 insulin-dependent, metastatic malignant melanoma with mets to liver and lymph nodes, depression, prior history of smoking, GERD and diabetic peripheral neuropathy and history of SVT, prior history of smoking. Patient presents to ER from Dr. Botello's office due to abnormal labs. Patient was also having generalized weakness. She was in the office for her third infusion. She had blood workup done yesterday which showed multiple abnormalities and was recommended to go to ER. She is also having generalized body pains. Also worsening shortness of breath. No chest pain. She does have decreased appetite and not eating well., No nausea no episodes of vomiting. EKG on admission showed sinus rhythm with heart rate 62 Chest x-ray showed no focal consolidation. Elevation of the right hemidiaphragm which is increased from prior exam. Consider sniff test to evaluate for diaphragmatic paralysis. Laboratory data showed WBC 26.7 hemoglobin 8.8 and platelets 634 MCV 75.3 Sodium 118, potassium 4.1 chloride 93 bicarb is 10 BUN 52 and creatinine 2.96, blood sugar 103 lactic acid 1.1 phosphorus 5.8 alk phos 241 proBNP 2350 lipase 441 Urinalysis showed light yellow turbid with large blood nitrite positive leukocyte esterase large elevated RBCs and WBCs. Influenza A B RSV and COVID-19 PCR not detected. 02/22/2025 Patient is in the MICU. Patient is requiring pressor support with Levophed. Re sting in the bed. Awake alert and oriented. Currently on room air. Afebrile overnight. Denied any complaints of nausea vomiting abdominal pain or diarrhea. Lab data showed WBC trending down to 21.7 hemoglobin 8.2 and platelets 0.91 sodium improved to 121 potassium 4.5 chloride 101 bicarb is 6 BUN 54 and creatinine 2.72. Antibiotics were changed to cefazolin 2 g Q12. Nephrology and ID is on board. 02/24/2024 Patient is needing intensive care unit. Awake alert and oriented x 3. Currently on room air. Patient is off pressor support since 5 AM this morning. Sodium level improved to 127 today. Patient is on antibiotics in the form of cefepime. Urine culture showed Proteus Mirabella's. Laboratory data showed WBC 17.7 hemoglobin 7.4 and platelets 505 sodium 123 potassium 3.6 chloride 98 bicarb is 15 BUN 44 and creatinine 1.98, calcium 8.3. 02/24/2025 Patient is in MICU. Ureteric and ovarian x 3. Currently on room air. No complaints of chest pain or shortness of breath. Sodium level improved to 127 today. Patient is also been antibiotics for urinary tract infection with ceftri axone. Urine culture growing Proteus mirabilis. Patient has been afebrile. Patient was given urea 15 g p.o. twice daily. Continued on insulin regimen. Laboratory test showed WBC 16.1 hemoglobin 7.3 and platelets 543 sodium 127 potassium 3.8 chloride 98 bicarb is 15 BUN 4020 creatinine 1.35 and blood sugar 82 magnesium 1.7 albumin 2.4. 02/25/2025 Patient is resting in the bed. Awake alert and oriented. No complaints of chest pain or shortness of breath. Tolerating oral diet. Patient is off IV fluids. He was started on urea and patient was also given Samsca. Sodium level is 126 today. Other laboratory data showed sodium 126 potassium 3.9 chloride 97 bicarb is 19 BUN 56 and creatinine 1.06 and blood sugar 125. Magnesium 1.9. Patient is getting ceftriaxone for urinary tract infection. Current medications reviewed. Objective - Vital Signs Vital signs: Vital Signs Temp 97.9 F 02/25/25 16:00 Pulse 73 02/25/25 16:00 Resp 12 02/25/25 16:00 BP 122/54 02/25/25 16:00 Pulse Ox 96 02/25/25 16:00 FiO2 Intake & Output 02/25/25 02/25/25 02/26/25 06:59 18:59 06:59 Intake Total 900 760 Output Total 600 200 Balance 300 560 Weight 145.2 kg Intake: IV 100 Sodium Ferric Gluconat- 100 Sucrose 125 mg In Sodium Chloride 0.9% 100 ml @ 100 mls/hr IVPB DAILY [facility] Rx#:[id number] Oral 900 660 Output: Urine 600 200 Other: Voiding Method External Catheter External Catheter # Voids 1 4 # Bowel Movements 1 - Exam PHYSICAL EXAMINATION: Patient is lying in the bed, mild distress with pain and anxious., awake alert and oriented. morbid obesity. HEENT: Normocephalic. Neck is supple. Pupils reactive. Nostrils clear. Oral cavity is moist. Neck reveals no JVD, carotid bruits, or thyromegaly. CHEST EXAMINATION: Trachea is central. Symmetrical expansion. Bibasilar diminished sounds otherwise lung gómez clear to auscultation and percussion. CARDIAC: Normal S1, S2 with no gallops. No murmurs ABDOMEN: Soft. Bowel sounds normal. No organomegaly. No abdominal bruits. Extremities: reveal no edema. No clubbing or cyanosis Neurologically awake, alert, oriented x3 with well-coordinated movements. No gross focal deficits noted Skin: No rash or skin lesions. Psychiatric: Coperative. Nonsuicidal Musculoskeletal: No joint swelling or deformity. Normal range of motion. - Labs CBC & Chem 7: 02/24/25 04:28 02/25/25 05:56 Labs: Abnormal Lab Results - Last 24 Hours (Table) 02/22/25 02/25/25 02/25/25 Range/Units 04:41 02:27 05:11 Sodium (137-145) mmol/L Chloride (98-107) mmol/L Carbon Dioxide (22-30) mmol/L BUN (7-17) mg/dL Creatinine (0.52-1.04) mg/dL Glucose (74-99) mg/dL POC Glucose (mg/dL) 134 H 136 H (70-110) mg/dL RBC Folate 1,003 H (280 - 791) ng/mL 02/25/25 02/25/25 02/25/25 Range/Units 05:56 11:37 17:01 Sodium 126 L (137-145) mmol/L Chloride 97 L (98-107) mmol/L Carbon Dioxide 19 L (22-30) mmol/L BUN 56 H (7-17) mg/dL Creatinine 1.06 H (0.52-1.04) mg/dL Glucose 125 H (74-99) mg/dL POC Glucose (mg/dL) 138 H 161 H (70-110) mg/dL RBC Folate (280 - 791) ng/mL Microbiology - Last 24 Hours (Table) 02/21/25 15:40 Blood Culture - Preliminary Blood Assessment and Plan Assessment: Severe hyponatremia with sodium level 118 on admission-hypoosmolar hyponatremia due to decreased oral intake and LISSETTE. Acute kidney injury. Possible ATN. SIADH cannot be excluded due to underlying malignancy. Creatinine 2.96 on admission baseline 1.0 Non-anion gap metabolic acidosis Acute urinary tract infection with Proteus Mirabella's. Mild pancreatitis with lipase level 441 Malignant melanoma with mets to liver and lymph nodes. On chemoinfusion and is on follow-up with oncology. Diabetes type 2 insulin-dependent Diabetic peripheral neuropathy History of SVT Paroxysmal atrial fibrillation Osteoarthritis Hypertension Hyperlipidemia GERD Depression Prior history of smoking Microcytic anemia rule out iron deficiency. Hemoglobin 8.8 on admission morbid obesity GI prophylax with PPI and currently on anticoagulation with Eliquis Plan: Patient in the MICU. Continue with telemonitoring. Sodium level improved to 126 today. Patient was given a dose of Samsca. Continue with urea. Off IV hydration.. Metformin, spironolactone and Cozaar is on hold due to acute kidney injury. Reduced Neurontin dose to 600 mg twice daily. Continue with pain management. Renal ultrasound showed no hydronephrosis or nephrolithiasis. Serum osmolality 265., urine osmolality 252. Continue to follow renal function. Creatinine is improving. Antibiotics changed to ceftriaxone. Continue with insulin regimen and sliding scale and other home medications. Critical care team, nephrology, oncology and ID is on board. Prognosis is guarded at this time. Time with Patient: Greater than 30
[2025-02-25 20:56] LABS: Glucose,Whole Blood 180 mg/dL (70-110)
[2025-02-26 02:16] LABS: Glucose,Whole Blood 154 mg/dL (70-110)
[2025-02-26 06:11] LABS: Glucose,Whole Blood 171 mg/dL (70-110)
[2025-02-26 08:20] LABS: HCT 22.8 % (37.2-46.3); HGB 7.4 g/dL (12.0-15.0); MCH 25.3 pg (27.0-32.0); MCHC 32.5 g/dL (32.0-37.0); MCV 78.1 fL (80.0-97.0); Mean Platelet Volume 8.8 fL (9.5-12.2); Platelet Count 594 10*3/uL (140-440); RBC 2.92 10*6/uL (4.10-5.20); RDW 17.8 % (11.5-14.5); WBC 16.88 10*3/uL (4.50-10.00)
--- NOTE | 2025-02-26 08:27 | P.PN ---
Subjective Progress Note Date: 02/24/25 Principal diagnosis: Reason for follow-up is sepsis and UTI Patient is a 55-year-old female with a past medical history significant for stage IV malignant melanoma on chemo, Diabetes Mellitus, GERD/Reflux, Hyperlipidemia, Hypertension, Osteoarthritis (OA) presenting to the hospital for evaluation of generalized weakness did have urinary symptoms a positive UA concerning for symptomatic UTI with sepsis requiring admission by ICU. On today's evaluation that is 02/24/2025, patient has been afebrile, patient is breathing comfortably and is currently on room air, patient denies having any chest pain and cough, patient denies nausea vomiting or diarrhea and no abdomi nal pain Patient white count is down to 16.15 creatinine is 1.35 urine with Proteus that is sensitive to ceftriaxone blood cultures have been negative Objective - Vital Signs Vital signs: Vital Signs Temp 97.7 F 02/24/25 12:00 Pulse 105 H 02/24/25 12:00 Resp 18 02/24/25 12:00 BP 138/64 02/24/25 12:00 Pulse Ox 99 02/24/25 12:00 FiO2 Intake & Output 02/23/25 02/24/25 02/24/25 18:59 06:59 18:59 Intake Total 790 720 160 Output Total 700 350 300 Balance 90 370 -140 Weight 144.6 kg 144.6 kg Intake: IV 225 150 Sodium Chloride 0.45% 1, 225 000 ml @ 75 mls/hr IV . [id number] ONE with Sodium Bicarb (1 Meq/ml) 100 ml Rx#:[id number] Sodium Ferric Gluconat- 100 Sucrose 125 mg In Sodium Chloride 0.9% 100 ml @ 100 mls/hr IVPB DAILY [facility] Rx#:[id number] ceFAZolin 2 gm In 50 Dextrose 5% in Water 50 ml @ 100 mls/hr IVPB Q12HR [facility] Rx#:[id number] Intake, IV Titration 325 Amount Cefepime 2 gm In Dextrose 100 5% in Water 100 ml @ 25 mls/hr IVPB ONCE [facility] Rx#: [id number] Sodium Chloride 3%( 75 Hypertonic) 500 ml @ 25 mls/hr IV .Q20H ONE Rx#: [id number] Sodium Ferric Gluconat- 100 Sucrose 125 mg In Sodium Chloride 0.9% 100 ml @ 100 mls/hr IVPB DAILY [facility] Rx#:[id number] ceFAZolin 2 gm In 50 Dextrose 5% in Water 50 ml @ 100 mls/hr IVPB Q12HR [facility] Rx#:[id number] Oral 240 720 10 Output: Urine 700 350 300 Other: Voiding Method External Catheter External Catheter External Catheter # Voids 1 # Bowel Movements 1 1 - Exam GENERAL DESCRIPTION: A middle-age female lying in bed in no distress RESPIRATORY SYSTEM: Unlabored breathing , decreased breath sounds at bases HEART: S1 S2 regular rate and rhythm , ABDOMEN: Soft , no tenderness EXTREMITIES: No edema feet - Labs CBC & Chem 7: 02/26/25 07:51 02/25/25 05:56 Labs: Abnormal Lab Results - Last 24 Hours (Table) 02/23/25 02/23/25 02/23/25 Range/Units 14:59 18:03 23:41 WBC (4.50-10.00) 10*3/uL RBC (4.10-5.20) 10*6/uL Hgb (12.0-15.0) g/dL Hct (37.2-46.3) % MCV (80.0-97.0) fL MCH (27.0-32.0) pg MCHC (32.0-37.0) g/dL Plt Count (140-440) 10*3/uL MPV (9.5-12.2) fL Sodium 126 L 127 L (137-145) mmol/L Carbon Dioxide (22-30) mmol/L BUN (7-17) mg/dL Creatinine (0.52-1.04) mg/dL POC Glucose (mg/dL) 124 H (70-110) mg/dL Alkaline Phosphatase (38-126) U/L Total Protein (6.3-8.2) g/dL Albumin (3.5-5.0) g/dL 02/24/25 02/24/25 02/24/25 Range/Units 04:28 04:28 11:39 WBC 16.15 H (4.50-10.00) 10*3/uL RBC 2.92 L (4.10-5.20) 10*6/uL Hgb 7.3 L (12.0-15.0) g/dL Hct 23.0 L (37.2-46.3) % MCV 78.8 L (80.0-97.0) fL MCH 25.0 L (27.0-32.0) pg MCHC 31.7 L (32.0-37.0) g/dL Plt Count 543 H (140-440) 10*3/uL MPV 8.9 L (9.5-12.2) fL Sodium 127 L (137-145) mmol/L Carbon Dioxide 15 L (22-30) mmol/L BUN 42 H (7-17) mg/dL Creatinine 1.35 H (0.52-1.04) mg/dL POC Glucose (mg/dL) 154 H (70-110) mg/dL Alkaline Phosphatase 182 H (38-126) U/L Total Protein 5.6 L (6.3-8.2) g/dL Albumin 2.4 L (3.5-5.0) g/dL Microbiology - Last 24 Hours (Table) 02/21/25 15:40 Blood Culture - Preliminary Blood 02/21/25 13:49 Urine Culture - Final Urine,Voided Proteus mirabilis Assessment and Plan (1) Sepsis Current Visit: Yes Status: Acute Code(s): A41.9 - SEPSIS, UNSPECIFIED ORGANISM SNOMED Code(s): 99653045 (2) LISSETTE (acute kidney injury) Current Visit: Yes Status: Acute Code(s): N17.9 - ACUTE KIDNEY FAILURE, UNSPECIFIED SNOMED Code(s): 81778148 (3) UTI (urinary tract infection) Current Visit: Yes Status: Acute Code(s): N39.0 - URINARY TRACT INFECTION, SITE NOT SPECIFIED SNOMED Code(s): 01873571 Plan: 1patient presented hospital with sepsis in this patient who did have tachycardia hypotension elevated white count meeting criteria for SIRS/sepsis source likely urinary in this patient has significantly positive UA along with urinary symptoms likely from enteric gram-negative pathogen keeping in mind history of cancer on chemo will need to cover for resistant gram-negative pathogen 2-patient elevated creatinine and high risk of nephrotoxicity from certain antibiotics 3-patient white count is trending down her urine culture has been finalized with a Proteus that is a sensitive pathogen antibiotic has been switched over to Rocephin 2 g daily Dictation was produced using [employer] dictation software. please excuse any grammatical, word or spelling errors. Time with Patient: Less than 30
--- NOTE | 2025-02-26 08:28 | P.PN ---
Subjective Progress Note Date: 02/25/25 Principal diagnosis: Reason for follow-up is sepsis and UTI Patient is a 55-year-old female with a past medical history significant for stage IV malignant melanoma on chemo, Diabetes Mellitus, GERD/Reflux, Hyperlipidemia, Hypertension, Osteoarthritis (OA) presenting to the hospital for evaluation of generalized weakness did have urinary symptoms a positive UA concerning for symptomatic UTI with sepsis requiring admission by ICU. On today's evaluation that is 02/25/2025, Patient is afebrile this morning patient denies having any chest pain shortness of breath or cough, the patient is currently on room air, patient denies any abdominal pain no diarrhea no nausea no vomiting No new lab has been obtained today blood culture remains to be negative Objective - Vital Signs Vital signs: Vital Signs Temp 97.7 F 02/25/25 12:00 Pulse 80 02/25/25 12:00 Resp 12 02/25/25 12:00 BP 109/61 02/25/25 12:00 Pulse Ox 96 02/25/25 12:00 FiO2 Intake & Output 02/24/25 02/25/25 02/25/25 18:59 06:59 18:59 Intake Total 160 900 180 Output Total 1150 600 Balance -990 300 180 Weight 144.6 kg 145.2 kg Intake: IV 150 Sodium Ferric Gluconat- 100 Sucrose 125 mg In Sodium Chloride 0.9% 100 ml @ 100 mls/hr IVPB DAILY [facility] Rx#:[id number] ceFAZolin 2 gm In 50 Dextrose 5% in Water 50 ml @ 100 mls/hr IVPB Q12HR [facility] Rx#:[id number] Oral 10 900 180 Output: Urine 1150 600 Other: Voiding Method External Catheter External Catheter External Catheter # Voids 1 1 # Bowel Movements 1 - Exam GENERAL DESCRIPTION: A middle-age female lying in bed in no distress RESPIRATORY SYSTEM: Unlabored breathing , decreased breath sounds at bases HEART: S1 S2 regular rate and rhythm , ABDOMEN: Soft , no tenderness EXTREMITIES: No edema feet - Labs CBC & Chem 7: 02/26/25 07:51 02/25/25 05:56 Labs: Abnormal Lab Results - Last 24 Hours (Table) 02/22/25 02/24/25 02/24/25 Range/Units 04:41 17:00 19:43 Sodium (137-145) mmol/L Chloride (98-107) mmol/L Carbon Dioxide (22-30) mmol/L BUN (7-17) mg/dL Creatinine (0.52-1.04) mg/dL Glucose (74-99) mg/dL POC Glucose (mg/dL) 135 H 151 H (70-110) mg/dL RBC Folate 1,003 H (280 - 791) ng/mL 02/25/25 02/25/25 02/25/25 Range/Units 02:27 05:11 05:56 Sodium 126 L (137-145) mmol/L Chloride 97 L (98-107) mmol/L Carbon Dioxide 19 L (22-30) mmol/L BUN 56 H (7-17) mg/dL Creatinine 1.06 H (0.52-1.04) mg/dL Glucose 125 H (74-99) mg/dL POC Glucose (mg/dL) 134 H 136 H (70-110) mg/dL RBC Folate (280 - 791) ng/mL 02/25/25 Range/Units 11:37 Sodium (137-145) mmol/L Chloride (98-107) mmol/L Carbon Dioxide (22-30) mmol/L BUN (7-17) mg/dL Creatinine (0.52-1.04) mg/dL Glucose (74-99) mg/dL POC Glucose (mg/dL) 138 H (70-110) mg/dL RBC Folate (280 - 791) ng/mL Microbiology - Last 24 Hours (Table) 02/21/25 15:40 Blood Culture - Preliminary Blood Assessment and Plan (1) Sepsis Current Visit: Yes Status: Acute Code(s): A41.9 - SEPSIS, UNSPECIFIED ORGANISM SNOMED Code(s): 29734096 (2) LISSETTE (acute kidney injury) Current Visit: Yes Status: Acute Code(s): N17.9 - ACUTE KIDNEY FAILURE, UNSP ECIFIED SNOMED Code(s): 70620073 (3) UTI (urinary tract infection) Current Visit: Yes Status: Acute Code(s): N39.0 - URINARY TRACT INFECTION, SITE NOT SPECIFIED SNOMED Code(s): 38028558 Plan: 1patient presented hospital with sepsis in this patient who did have tachycardia hypotension elevated white count meeting criteria for SIRS/sepsis source likely urinary in this patient has significantly positive UA along with urinary symptoms likely from enteric gram-negative pathogen keeping in mind history of cancer on chemo will need to cover for resistant gram-negative pathogen 2-patient elevated creatinine and high risk of nephrotoxicity from certain antibiotics 3-patient white count is trending down as of yesterday no CBC was done today her urine culture has been finalized with a Proteus that is a sensitive pathogen 4patient will be treated with IV Rocephin while inpatient and monitor clinical course closely Dictation was produced using [employer] dictation software. please excuse any grammatical, word or spelling errors. Time with Patient: Less than 30
[2025-02-26] MEDS: HYDROmorphone 2 MG/ML 1 ML SYRINGE IVP PRN (08:30)
[2025-02-26 08:34] LABS: African American GFR (CKD) 67 (>60 ml/min/1.73 sqM); Anion Gap 9 mmol/L; Blood Urea Nitrogen 59 mg/dL (7-17); Carbon Dioxide 21 mmol/L (22-30); Chloride 99 mmol/L (98-107); Glucose 155 mg/dL (74-99); Non-African American GFR(CKD) 58 (>60 ml/min/1.73 sqM); Potassium 4.3 mmol/L (3.5-5.1); Sodium 129 mmol/L (137-145)
--- NOTE | 2025-02-26 09:01 | P.PN ---
Subjective Patient is a 55-year-old female with a past medical history of hypertension, hyperlipidemia, diabetes type 2 insulin-dependent, metastatic malignant melanoma with mets to liver and lymph nodes, depression, prior history of smoking, GERD and diabetic peripheral neuropathy and history of SVT, prior history of smoking. Patient presents to ER from Dr. Botello's office due to abnormal labs. Patient was also having generalized weakness. She was in the office for her third infusion. She had blood workup done yesterday which showed multiple abnormalities and was recommended to go to ER. She is also having generalized body pains. Also worsening shortness of breath. No chest pain. She does have decreased appetite and not eating well., No nausea no episodes of vomiting. EKG on admission showed sinus rhythm with heart rate 62 Chest x-ray showed no focal consolidation. Elevation of the right hemidiaphragm which is increased from prior exam. Consider sniff test to evaluate for diaphragmatic paralysis. Laboratory data showed WBC 26.7 hemoglobin 8.8 and platelets 634 MCV 75.3 Sodium 118, potassium 4.1 chloride 93 bicarb is 10 BUN 52 and creatinine 2.96, blood sugar 103 lactic acid 1.1 phosphorus 5.8 alk phos 241 proBNP 2350 lipase 441 Urinalysis showed light yellow turbid with large blood nitrite positive leukocyte esterase large elevated RBCs and WBCs. Influenza A B RSV and COVID-19 PCR not detected. 02/22/2025 Patient is in the MICU. Patient is requiring pressor support with Levophed. Resting in the bed. Awake alert and oriented. Currently on room air. Afebrile overnight. Denied any complaints of nausea vomiting abdominal pain or diarrhea. Lab data showed WBC trending down to 21.7 hemoglobin 8.2 and platelets 0.91 sodium improved to 121 potassium 4.5 chloride 101 bicarb is 6 BUN 54 and creatinine 2.72. Antibiotics were changed to cefazolin 2 g Q12. Nephrology and ID is on board. 02/24/2024 Patient is needing intensive care unit. Awake alert and oriented x 3. Currently on room air. Patient is off pressor support since 5 AM this morning. Sodium level improved to 127 today. Patient is on antibiotics in the form of cefepime. Urine culture showed Proteus Mirabella's. Laboratory data showed WBC 17.7 hemoglobin 7.4 and platelets 505 sodium 123 potassium 3.6 chloride 98 bicarb is 15 BUN 44 and creatinine 1.98, calcium 8.3. 02/24/2025 Patient is in MICU. Ureteric and ovarian x 3. Currently on room air. No c omplaints of chest pain or shortness of breath. Sodium level improved to 127 today. Patient is also been antibiotics for urinary tract infection with ceftriaxone. Urine culture growing Proteus mirabilis. Patient has been afebrile. Patient was given urea 15 g p.o. twice daily. Continued on insulin regimen. Laboratory test showed WBC 16.1 hemoglobin 7.3 and platelets 543 sodium 127 potassium 3.8 chloride 98 bicarb is 15 BUN 4020 creatinine 1.35 and blood sugar 82 magnesium 1.7 albumin 2.4. 02/25/2025 Patient is resting in the bed. Awake alert and oriented. No complaints of chest pain or shortness of breath. Tolerating oral diet. Patient is off IV fluids. He was started on urea and patient was also given Samsca. Sodium level is 126 today. Other laboratory data showed sodium 126 potassium 3.9 chloride 97 bicarb is 19 BUN 56 and creatinine 1.06 and blood sugar 125. Magnesium 1.9. Patient is getting ceftriaxone for urinary tract infection. 02/26 Patient lying in bed comfortable no chest pain or dyspnea No vomiting, she has average appetite No abdominal abdominal pain Patient has ongoing dysuria. 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 As per patient she was getting chemotherapy since November 2024. Her oncologist as outpatient is Dr. Botello. She had 3 cycles of chemotherapy so far. Her Cozaar Aldactone and metformin remain on hold Objective - Vital Signs Vital signs: Vital Signs Temp 98.4 F 02/26/25 08:00 Pulse 89 02/26/25 08:00 Resp 13 02/26/25 08:00 BP 119/71 02/26/25 08:00 Pulse Ox 96 02/26/25 08:00 FiO2 Intake & Output 02/25/25 02/26/25 02/26/25 18:59 06:59 18:59 Intake Total 760 Output Total 200 300 Balance 560 -300 Weight 142.2 kg Intake: IV 100 Sodium Ferric Gluconat- 100 Sucrose 125 mg In Sodium Chloride 0.9% 100 ml @ 100 mls/hr IVPB DAILY [facility] Rx#:[id number] Oral 660 Output: Urine 200 300 Other: Voiding Method External Catheter External Catheter # Voids 4 2 # Bowel Movements 1 - Exam -GENERAL: The patient is alert and oriented x3, not in any acute distress. Well developed, well nourished. Obese HEENT: Pupils are round and equally reacting to light. EOMI. No scleral icterus. No conjunctival pallor. Normocephalic, atraumatic. No pharyngeal erythema. No thyromegaly. CARDIOVASCULAR: S1 and S2 present. No murmurs, rubs, or gallops. PULMONARY: Chest is clear to auscultation, no wheezing , no crackles. ABDOMEN: Soft, nontender, nondistended, normoactive bowel sounds. No palpable organomegaly. MUSCULOSKELETAL: No joint swelling or deformity. EXTREMITIES: No cyanosis, clubbing, or pedal edema. NEUROLOGICAL: Gross neurological examination did not reveal any focal deficits. SKIN: No rashes. no petechiae. - Labs CBC & Chem 7: 02/26/25 07:51 02/26/25 07:51 Labs: Abnormal Lab Results - Last 24 Hours (Table) 02/25/25 02/25/25 02/25/25 Range/Units 11:37 17:01 20:55 WBC (4.50-10.00) 10*3/uL RBC (4.10-5.20) 10*6/uL Hgb (12.0-15.0) g/dL Hct (37.2-46.3) % MCV (80.0-97.0) fL MCH (27.0-32.0) pg Plt Count (140-440) 10*3/uL MPV (9.5-12.2) fL Sodium (137-145) mmol/L Carbon Dioxide (22-30) mmol/L BUN (7-17) mg/dL Creatinine (0.52-1.04) mg/dL Glucose (74-99) mg/dL POC Glucose (mg/dL) 138 H 161 H 180 H (70-110) mg/dL 02/26/25 02/26/25 02/26/25 Range/Units 02:14 06:09 07:51 WBC 16.88 H (4.50-10.00) 10*3/uL RBC 2.92 L (4.10-5.20) 10*6/uL Hgb 7.4 L (12.0-15.0) g/dL Hct 22.8 L (37.2-46.3) % MCV 78.1 L (80.0-97.0) fL MCH 25.3 L (27.0-32.0) pg Plt Count 594 H (140-440) 10*3/uL MPV 8.8 L (9.5-12.2) fL Sodium (137-145) mmol/L Carbon Dioxide (22-30) mmol/L BUN (7-17) mg/dL Creatinine (0.52-1.04) mg/dL Glucose (74-99) mg/dL POC Glucose (mg/dL) 154 H 171 H (70-110) mg/dL 02/26/25 Range/Units 07:51 WBC (4.50-10.00) 10*3/uL RBC (4.10-5.20) 10*6/uL Hgb (12.0-15.0) g/dL Hct (37.2-46.3) % MCV (80.0-97.0) fL MCH (27.0-32.0) pg Plt Count (140-440) 10*3/uL MPV (9.5-12.2) fL Sodium 129 L (137-145) mmol/L Carbon Dioxide 21 L (22-30) mmol/L BUN 59 H (7-17) mg/dL Creatinine 1.07 H (0.52-1.04) mg/dL Glucose 155 H (74-99) mg/dL POC Glucose (mg/dL) (70-110) mg/dL Assessment and Plan Assessment: Severe hyponatremia with sodium level 118 on admission-hypoosmolar hyponatremia due to decreased oral intake and LISSETTE. Acute kidney injury. Possible ATN. SIADH cannot be excluded due to underlying malignancy. Creatinine 2.96 on admission baseline 1.0 Non-anion gap metabolic acidosis Acute urinary tract infection with Proteus Mirabella's. Mild pancreatitis with lipase level 441 Malignant melanoma with mets to liver and lymph nodes. On chemoinfusion and is on follow-up with oncology. Diabetes type 2 insulin-dependent Diabetic peripheral neuropathy History of SVT Paroxysmal atrial fibrillation Osteoarthritis Hypertension Hyperlipidemia GERD Depression Prior history of smoking Microcytic anemia rule out iron deficiency. 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
--- NOTE | 2025-02-26 09:39 | P.PN ---
Subjective Patient is seen in follow-up for acute kidney injury and hyponatremia. Sodium level 129 this morning. Off IV fluids has been getting urea. Also received Samsca yesterday. Oral intake fair. Vital signs are stable. General: No acute distress. HEENT: Head exam is unremarkable. LUNGS: No audible rhonchi or wheezes. HEART: Rate and Rhythm are regular. ABDOMEN: Nontender. EXTREMITITES: No edema. Objective - Vital Signs Vital signs: Vital Signs Temp 98.4 F 02/26/25 08:00 Pulse 89 02/26/25 08:00 Resp 13 02/26/25 08:00 BP 119/71 02/26/25 08:00 Pulse Ox 96 02/26/25 08:00 FiO2 Intake & Output 02/25/25 02/26/25 02/26/25 18:59 06:59 18:59 Intake Total 760 Output Total 200 300 Balance 560 -300 Weight 142.2 kg Intake: IV 100 Sodium Ferric Gluconat- 100 Sucrose 125 mg In Sodium Chloride 0.9% 100 ml @ 100 mls/hr IVPB DAILY [facility] Rx#:[id number] Oral 660 Output: Urine 200 300 Other: Voiding Method External Catheter External Catheter # Voids 4 2 # Bowel Movements 1 - Labs CBC & Chem 7: 02/26/25 07:51 02/26/25 07:51 Labs: Abnormal Lab Results - Last 24 Hours (Table) 02/25/25 02/25/25 02/25/25 Range/Units 11:37 17:01 20:55 WBC (4.50-10.00) 10*3/uL RBC (4.10-5.20) 10*6/uL Hgb (12.0-15.0) g/dL Hct (37.2-46.3) % MCV (80.0-97.0) fL MCH (27.0-32.0) pg Plt Count (140-440) 10*3/uL MPV (9.5-12.2) fL Sodium (137-145) mmol/L Carbon Dioxide (22-30) mmol/L BUN (7-17) mg/dL Creatinine (0.52-1.04) mg/dL Glucose (74-99) mg/dL POC Glucose (mg/dL) 138 H 161 H 180 H (70-110) mg/dL 02/26/25 02/26/25 02/26/25 Range/Units 02:14 06:09 07:51 WBC 16.88 H (4.50-10.00) 10*3/uL RBC 2.92 L (4.10-5.20) 10*6/uL Hgb 7.4 L (12.0-15.0) g/dL Hct 22.8 L (37.2-46.3) % MCV 78.1 L (80.0-97.0) fL MCH 25.3 L (27.0-32.0) pg Plt Count 594 H (140-440) 10*3/uL MPV 8.8 L (9.5-12.2) fL Sodium (137-145) mmol/L Carbon Dioxide (22-30) mmol/L BUN (7-17) mg/dL Creatinine (0.52-1.04) mg/dL Glucose (74-99) mg/dL POC Glucose (mg/dL) 154 H 171 H (70-110) mg/dL 02/26/25 Range/Units 07:51 WBC (4.50-10.00) 10*3/uL RBC (4.10-5.20) 10*6/uL Hgb (12.0-15.0) g/dL Hct (37.2-46.3) % MCV (80.0-97.0) fL MCH (27.0-32.0) pg Plt Count (140-440) 10*3/uL MPV (9.5-12.2) fL Sodium 129 L (137-145) mmol/L Carbon Dioxide 21 L (22-30) mmol/L BUN 59 H (7-17) mg/dL Creatinine 1.07 H (0.52-1.04) mg/dL Glucose 155 H (74-99) mg/dL POC Glucose (mg/dL) (70-110) mg/dL Assessment and Plan Plan: Assessment: 1. 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 Urine osmolality 252. Sodium 129 this morning. Cortisol level high. TSH normal. Urine osmolality 252. 2. Malignant melanoma with metastatic disease to liver and lymph nodes. 3. Acute kidney injury secondary to ATN secondary to severe sepsis. Baseline creatinine near 1 from December 2024. Creatinine 2.96 on admission and is 1.06 today. 4. UTI on antibiotics. Urine culture positive for Proteus. 5. Metabolic acidosis secondary to acute kidney injury and IV fluids. Was also on metformin. On oral bicarb. Better. 6. Diabetes mellitus. 7. Anemia. Iron deficiency noted. Receiving IV iron. Plan: Maintain urea. Encouraged oral intake. Maintain fluid restriction. Samsca given February 25, 2025. Repeat labs in the morning.
[2025-02-26 11:06] LABS: Glucose,Whole Blood 199 mg/dL (70-110)
[2025-02-26] MEDS: ONDANSETRON 4 MG/2 ML VIAL IVP PRN (12:01)
[2025-02-26] MEDS: LIXISENATIDE SQ SCH (12:18)
[2025-02-26] MEDS: [UNRECOGNIZED DRUG - OTHER] SQ SCH (12:18)
[2025-02-26] MEDS: INSULIN GLARGINE SQ SCH (12:18)
--- NOTE | 2025-02-26 16:16 | P.PN ---
Subjective Progress Note Date: 02/26/25 This is a pleasant 55-year-old female patient with a known history of diabetes melitis, type II, hypertension, hyperlipidemia, former smoker, peripheral neuropathy, SVT. She also has a history of metastatic malignant melanoma with mets to the liver and lymph nodes. She was in Dr. Botello's office yesterday for her third infusion of chemotherapy and was found to have abnormal labs and the patient also had generalized weakness. She was referred to the ER for the same. She was found to have a sodium of 118 and was initiated on 3% saline and admitted to the intensive care unit. She is seen today in consultation. She is awake and alert. Quite weak. Maintaining good O2 saturations up to 100% on dahlia m air. She briefly required norepinephrine for hypotension. The most recent sodium was 122. 3% saline is on pause. She has a sodium bicarbonate drip at 75 mL/h. Anticoagulated with Eliquis. White count 21.7. Hemoglobin 8.2. Platelets 591. Potassium 4.5. Bicarb 6. BUN 54. Creatinine 2.72. Glucose 65. Chest x-ray shows no focal consolidation. Some elevation in the right hemidiaphragm. The patient is seen today February 23, 2025 in follow-up in the intensive care unit. She is currently sitting up in bed. Awake and alert in no acute distress. Maintaining O2 saturations in the 90s on room air. She has been off norepinephrine since 5 AM this morning. She is receiving 0.45 normal saline with 2 A of bicarb at 75 mL/h. Her current sodium is 123. Potassium 3.6. Bicarb 15. BUN 44. Creatinine 1.98. Glucose 82. White count 17.7. Hemoglobin 7.4. Platelets 505. She is anticoagulated with Eliquis. She remains on cefazolin. On 02/24/2025, the patient is doing well the patient is recovering from acute septic event related to an underlying urinary tract infection. The patient had an acute kidney injury, she was hypotensive and she was also hyponatremic. The patient was taken off the hypertonic saline solution. Sodium level is gradually improving is currently up to 127 from a baseline of 118. LISSETTE is also improving and the creatinine is down to 1.3. The patient is awake and alert and communicating. She remains on IV Rocephin. She was found to have iron deficien cy anemia and the patient was given IV iron. On her blood work, the patient continues to have a component of an anion gap metabolic acidosis. The patient was started on oral bicarb. Serum bicarbonate 15, sodium levels at 127 with a potassium level of 3.9. Chloride is 99, WBC count 16.1 with a hemoglobin 7.3 and a platelet count of 543. The patient otherwise remains on long-term anticoagulation with Eliquis. The patient is known to have metastatic melanoma, treated with immunotherapy in outpatient basis. Patient is also on Lantus insulin 50 units and sliding scale coverage. She is diabetic. She has hypertension hyperlipidemia and peripheral neuropathy. Anticoagulation was given for paroxysmal atrial fibrillation. On 02/25/2025, the patient has no specific complaints. Doing well. Awake and alert send the patient is currently on room air oxygen. Blood work from today shows a sodium level of 126, serum bicarbonate 19, BUN 56 with a creatinine of 1.06. The patient had a white cell count from yesterday that was down to 16.1 and a hemoglobin of 7.3. Nephrology on the case regarding his ongoing hyponatremia. The patient remains on IV Rocephin regarding a Proteus mirabilis urinary tract infection. She is afebrile and she is hemodynamically stable. The patient will be given a dose of Samsca by nephrology. Remains on oral bicarb. Remains on IV iron. She remains on anticoagulation regarding paroxysmal atrial fibrillation. She is diabetic and she is known to have hy pertension hyperlipidemia and peripheral neuropathy. Remains on Lantus insulin 50 units daily. On 02/26/2025, the patient is being seen for a follow-up. The patient remains on room air oxygen. Very low energy and stamina the patient refused to get out of bed. She remains on room air oxygen she denies having any significant respite distress. The patient's sodium level is up to 129. Serum bicarb is up to 21. BUN is 59 with a creatinine of 1.07. White second 16.8 with a hemoglobin of 7.4. Noted, there has been no significant drop in hemoglobin and the patient seems to be chronically anemic. She has Proteus mirabilis in the urine and patient remains on IV Rocephin. No other significant events overnight and the patient will be transferred out of the intensive care unit yesterday. Noted the patient received a dose of Samsca yesterday and sodium level improved further. Hemodynamically stable. Tolerating diet. Objective - Vital Signs Vital signs: Vital Signs Temp 98.4 F 02/26/25 08:00 Pulse 89 02/26/25 08:00 Resp 13 02/26/25 08:00 BP 119/71 02/26/25 08:00 Pulse Ox 96 02/26/25 08:00 FiO2 Intake & Output 02/25/25 02/26/25 02/26/25 18:59 06:59 18:59 Intake Total 760 Output Total 200 300 Balance 560 -300 Weight 142.2 kg Intake: IV 100 Sodium Ferric Gluconat- 100 Sucrose 125 mg In Sodium Chloride 0.9% 100 ml @ 100 mls/hr IVPB DAILY [facility] Rx#:[id number] Oral 660 Output: Urine 200 300 Other: Voiding Method External Catheter External Catheter # Voids 4 2 # Bowel Movements 1 - Exam The patient appeared well nourished and normally developed. Vital signs as documented. Morbidly obese with a BMI of 48.5 Head exam is unremarkable. No scleral icterus or corneal arcus noted. Neck is without jugular venous distension, thyromegaly, or carotid bruits. Carotid upstrokes are brisk bilaterally. Lungs are clear to auscultation and percussion. Cardiac exam reveals the PMI to be normally sized and situated. Rhythm is regular. First and second heart sounds normal. No murmurs, rubs or gallops. Abdominal exam reveals normal bowel sounds, no masses, no organomegaly and no aortic enlargement. On her pelvic examination, the patient has an irregular mass in her vulva consistent with melanoma Extremities are nonedematous and both femoral and pedal pulses are normal. Examination of the skin revealed no evidence of significant rashes, suspicious appearing nevi or other concerning lesions. Neurologically, the patient is awake and alert and the patient does not have any focal neurological deficit. Cranial nerves are essentially intact. - Labs CBC & Chem 7: 02/26/25 07:51 02/26/25 07:51 Labs: Abnormal Lab Results - Last 24 Hours (Table) 02/25/25 02/25/25 02/25/25 Range/Units 11:37 17:01 20:55 WBC (4.50-10.00) 10*3/uL RBC (4.10-5.20) 10*6/uL Hgb (12.0-15.0) g/dL Hct (37.2-46.3) % MCV (80.0-97.0) fL MCH (27.0-32.0) pg Plt Count (140-440) 10*3/uL MPV (9.5-12.2) fL Sodium (137-145) mmol/L Carbon Dioxide (22-30) mmol/L BUN (7-17) mg/dL Creatinine (0.52-1.04) mg/dL Glucose (74-99) mg/dL POC Glucose (mg/dL) 138 H 161 H 180 H (70-110) mg/dL 02/26/25 02/26/25 02/26/25 Range/Units 02:14 06:09 07:51 WBC 16.88 H (4.50-10.00) 10*3/uL RBC 2.92 L (4.10-5.20) 10*6/uL Hgb 7.4 L (12.0-15.0) g/dL Hct 22.8 L (37.2-46.3) % MCV 78.1 L (80.0-97.0) fL MCH 25.3 L (27.0-32.0) pg Plt Count 594 H (140-440) 10*3/uL MPV 8.8 L (9.5-12.2) fL Sodium (137-145) mmol/L Carbon Dioxide (22-30) mmol/L BUN (7-17) mg/dL Creatinine (0.52-1.04) mg/dL Glucose (74-99) mg/dL POC Glucose (mg/dL) 154 H 171 H (70-110) mg/dL 02/26/25 Range/Units 07:51 WBC (4.50-10.00) 10*3/uL RBC (4.10-5.20) 10*6/uL Hgb (12.0-15.0) g/dL Hct (37.2-46.3) % MCV (80.0-97.0) fL MCH (27.0-32.0) pg Plt Count (140-440) 10*3/uL MPV (9.5-12.2) fL Sodium 129 L (137-145) mmol/L Carbon Dioxide 21 L (22-30) mmol/L BUN 59 H (7-17) mg/dL Creatinine 1.07 H (0.52-1.04) mg/dL Glucose 155 H (74-99) mg/dL POC Glucose (mg/dL) (70-110) mg/dL Assessment and Plan Plan: Acute sepsis, likely secondary underlying urine tract infection. Urine cultures positive for Klebsiella pneumoniae and the patient remains on IV Rocephin. Hemodynamically stable on no pressors Acute leukocytosis, improving Acute kidney injury, improving and the creatinine seems to be normalizing Acute hyponatremia likely secondary acute kidney injury and sepsis. Sodium levels improving and is currently up to 129. Received a dose of Samsca yesterday. Morbid obesity with a BMI of 48.5 Malignant melanoma with metastatic disease to the liver and lymph nodes, received 3 cycles of Opdualag thus far. The patient has a pelvic mass/vaginal mass consistent with melanoma. Metabolic acidosis secondary to above, essentially anion gap metabolic acidosis and the patient is currently on oral bicarb. Serum bicarb is improving and the patient remains on oral bicarbonate replacement. Urinary tract infection secondary to gram-negative bacilli, cultures are positive for Proteus mirabilis Paroxysmal A-fib, currently on anticoagulation with Eliquis. Cardiac rhythm is sinus. Iron deficiency anemia, currently on IV iron Diabetes mellitus type 2, currently on Lantus insulin. History of UTIs History of hypertension Hyperlipidemia Plan: Patient currently on room air oxygen Hemodynamically stable on no pressors Sodium levels are still low, will be managed by nephrology. Renal function is improving Fluid restriction Oral bicarb IV Rocephin No pressors for now Continue anticoagulation with Eliquis Will move the patient out of the intensive care unit. Involve physical therapy. Increase mobility
[2025-02-26 16:30] LABS: Glucose,Whole Blood 188 mg/dL (70-110)
[2025-02-26] MEDS: LACTATED RINGERS 1,000 ML IV SCH (19:04)
[2025-02-26] MEDS: METOCLOPRAMIDE 5 MG/ML 2 ML VIAL IVP PRN (20:02)
[2025-02-26 20:20] LABS: Glucose,Whole Blood 170 mg/dL (70-110)
[2025-02-27 02:31] LABS: Glucose,Whole Blood 152 mg/dL (70-110)
[2025-02-27 05:55] LABS: Glucose,Whole Blood 142 mg/dL (70-110)
--- NOTE | 2025-02-27 08:42 | P.PN ---
Subjective Patient is a 55-year-old female with a past medical history of hypertension, hyperlipidemia, diabetes type 2 insulin-dependent, metastatic malignant melanoma with mets to liver and lymph nodes, depression, prior history of smoking, GERD and diabetic peripheral neuropathy and history of SVT, prior history of smoking. Patient presents to ER from Dr. Botello's office due to abnormal labs. Patient was also having generalized weakness. She was in the office for her third infusion. She had blood workup done yesterday which showed multiple abnormalities and was recommended to go to ER. She is also having generalized body pains. Also worsening shortness of breath. No chest pain. She does have decreased appetite and not eating well., No nausea no episodes of vomiting. EKG on admission showed sinus rhythm with heart rate 62 Chest x-ray showed no focal consolidation. Elevation of the right hemidiaphragm which is increased from prior exam. Consider sniff test to evaluate for diaphragmatic paralysis. Laboratory data showed WBC 26.7 hemoglobin 8.8 and platelets 634 MCV 75.3 Sodium 118, potassium 4.1 chloride 93 bicarb is 10 BUN 52 and creatinine 2.96, blood sugar 103 lactic acid 1.1 phosphorus 5.8 alk phos 241 proBNP 2350 lipase 441 Urinalysis showed light yellow turbid with large blood nitrite positive leukocyte esterase large elevated RBCs and WBCs. Influenza A B RSV and COVID-19 PCR not detected. 02/22/2025 Patient is in the MICU. Patient is requiring pressor support with Levophed. Resting in the bed. Awake alert and oriented. Currently on room air. Afebrile overnight. Denied any complaints of nausea vomiting abdominal pain or diarrhea. Lab data showed WBC trending down to 21.7 hemoglobin 8.2 and platelets 0.91 sodium improved to 121 potassium 4.5 chloride 101 bicarb is 6 BUN 54 and creatinine 2.72. Antibiotics were changed to cefazolin 2 g Q12. Nephrology and ID is on board. 02/24/2024 Patient is needing intensive care unit. Awake alert and oriented x 3. Currently on room air. Patient is off pressor support since 5 AM this morning. Sodium level improved to 127 today. Patient is on antibiotics in the form of cefepime. Urine culture showed Proteus Mirabella's. Laboratory data showed WBC 17.7 hemoglobin 7.4 and platelets 505 sodium 123 potassium 3.6 chloride 98 bicarb is 15 BUN 44 and creatinine 1.98, calcium 8.3. 02/24/2025 Patient is in MICU. Ureteric and ovarian x 3. Currently on room air. No c omplaints of chest pain or shortness of breath. Sodium level improved to 127 today. Patient is also been antibiotics for urinary tract infection with ceftriaxone. Urine culture growing Proteus mirabilis. Patient has been afebrile. Patient was given urea 15 g p.o. twice daily. Continued on insulin regimen. Laboratory test showed WBC 16.1 hemoglobin 7.3 and platelets 543 sodium 127 potassium 3.8 chloride 98 bicarb is 15 BUN 4020 creatinine 1.35 and blood sugar 82 magnesium 1.7 albumin 2.4. 02/25/2025 Patient is resting in the bed. Awake alert and oriented. No complaints of chest pain or shortness of breath. Tolerating oral diet. Patient is off IV fluids. He was started on urea and patient was also given Samsca. Sodium level is 126 today. Other laboratory data showed sodium 126 potassium 3.9 chloride 97 bicarb is 19 BUN 56 and creatinine 1.06 and blood sugar 125. Magnesium 1.9. Patient is getting ceftriaxone for urinary tract infection. 02/26 Patient lying in bed comfortable no chest pain or dyspnea No vomiting, she has average appetite No abdominal abdominal pain Patient has ongoing dysuria. 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 As per patient she was getting chemotherapy since November 2024. Her oncologist as outpatient is Dr. Botello. She had 3 cycles of chemotherapy so far. Her Cozaar Aldactone and metformin remain on hold 02/27 Clinically looks the same, awake and alert Main complaint is dysuria which is going on for 1.5 months which looks chronic related to her vaginal mass She is following up with hematology/oncology. Also she follow-up with the surgeon at [facility] with no plans for surgical intervention. Also patient confirms to me that she follow-up with sleeve machine tender in [place]. She has right foot boot on. She says she has fracture on November 26 and she is going to follow-up with her orthopedic in 1 to 2 weeks after discharge. No other new complaints Vital stable and afebrile. Labs from today are pending Will ask for PT/OT evaluation Objective - Vital Signs Vital signs: Vital Signs Temp 98.4 F 02/27/25 04:00 Pulse 70 02/27/25 04:00 Resp 18 02/27/25 04:00 BP 105/68 02/27/25 04:00 Pulse Ox 94 L 02/27/25 04:00 FiO2 Intake & Output 02/26/25 02/27/25 02/27/25 18:59 06:59 18:59 Intake Total 640 Output Total 150 300 Balance 490 -300 Weight 142.5 kg Intake: IV 100 ceFAZolin 2 gm In 100 Dextrose 5% in Water 50 ml @ 100 mls/hr IVPB Q12HR [facility] Rx#:[id number] Oral 540 Output: Urine 150 300 Other: Voiding Method External Catheter External Catheter # Voids 1 # Bowel Movements 1 - Exam -GENERAL: The patient is alert and oriented x3, not in any acute distress. Well developed, well nourished. Obese HEENT: Pupils are round and equally reacting to light. EOMI. No scleral icterus. No conjunctival pallor. Normocephalic, atraumatic. No pharyngeal erythema. No thyromegaly. CARDIOVASCULAR: S1 and S2 present. No murmurs, rubs, or gallops. PULMONARY: Chest is clear to auscultation, no wheezing , no crackles. ABDOMEN: Soft, nontender, nondistended, normoactive bowel sounds. No palpable organomegaly. MUSCULOSKELETAL: No joint swelling or deformity. EXTREMITIES: No cyanosis, clubbing, or pedal edema. NEUROLOGICAL: Gross neurological examination did not reveal any focal deficits. SKIN: No rashes. no petechiae. - Labs CBC & Chem 7: 02/26/25 07:51 02/26/25 07:51 Labs: Abnormal Lab Results - Last 24 Hours (Table) 02/26/25 02/26/25 02/26/25 Range/Units 11:03 16:29 20:18 POC Glucose (mg/dL) 199 H 188 H 170 H (70-110) mg/dL 02/27/25 02/27/25 Range/Units 02:29 05:51 POC Glucose (mg/dL) 152 H 142 H (70-110) mg/dL Microbiology - Last 24 Hours (Table) 02/21/25 15:40 Blood Culture - Final Blood Assessment and Plan Assessment: Severe hyponatremia with sodium level 118 on admission-hypoosmolar hyponatremia due to decreased oral intake and LISSETTE. Acute kidney injury. Possible ATN. SIADH cannot be excluded due to underlying malignancy. Creatinine 2.96 on admission baseline 1.0 Non-anion gap metabolic acidosis Acute urinary tract infection with Proteus Mirabella's. Mild pancreatitis with lipase level 441 Malignant melanoma with mets to liver and lymph nodes. On chemoinfusion and is on follow-up with oncology. Diabetes type 2 insulin-dependent Diabetic peripheral neuropathy History of SVT Paroxysmal atrial fibrillation Osteoarthritis Hypertension Hyperlipidemia GERD Depression Prior history of smoking Microcytic anemia rule out iron deficiency. Hemoglobin 8.8 on admission morbid obesity Plan: Continue with ceftriaxone as per ID team on the lining caser sodium level, improving slowly and gradually Monitor creatinine Nephrology team consult Critical care team consult Continue holding metformin, Aldactone and Cozaar Hematology/oncology team on the case GI prophylaxis: Protonix DVT prophylaxis: Marilu Physical therapist recommended home versus subacute rehab Prognosis is guarded
[2025-02-27 09:21] LABS: Basophils # (A) 0.03 10*3/uL (0.00-0.10); Basophils % (A) 0.1 %; Eosinophils # (A) 0.17 10*3/uL (0.04-0.35); Eosinophils % (A) 0.7 %; HCT 22.6 % (37.2-46.3); HGB 7.3 g/dL (12.0-15.0); Lymphocytes % (A) 4.8 %; MCHC 32.3 g/dL (32.0-37.0); MCV 80.4 fL (80.0-97.0); Mean Platelet Volume 8.9 fL (9.5-12.2); Monocytes # (A) 0.87 10*3/uL (0.20-1.00); Monocytes % (A) 3.8 %; Neutrophils # (A) 19.96 10*3/uL (1.80-7.70); Neutrophils % (A) 87.6 %; Platelet Count 508 10*3/uL (140-440); RBC 2.81 10*6/uL (4.10-5.20); RDW 18.1 % (11.5-14.5); WBC 22.81 10*3/uL (4.50-10.00)
[2025-02-27 09:37] LABS: African American GFR (CKD) 51 (>60 ml/min/1.73 sqM); Anion Gap 8 mmol/L; Blood Urea Nitrogen 73 mg/dL (7-17); Calcium 9.1 mg/dL (8.4-10.2); Carbon Dioxide 22 mmol/L (22-30); Chloride 99 mmol/L (98-107); Glucose 152 mg/dL (74-99); Non-African American GFR(CKD) 44 (>60 ml/min/1.73 sqM); Potassium 4.4 mmol/L (3.5-5.1); Sodium 129 mmol/L (137-145)
--- NOTE | 2025-02-27 11:04 | P.PN ---
Subjective Patient is seen in follow-up for acute kidney injury and hyponatremia. Sodium level stable at 129 this morning. Nauseous this morning. On clear liquid diet. Vital signs are stable. General: No acute distress. HEENT: Head exam is unremarkable. LUNGS: No audible rhonchi or wheezes. HEART: Rate and Rhythm are regular. ABDOMEN: Nontender. EXTREMITITES: No edema. Objective - Vital Signs Vital signs: Vital Signs Temp 97.6 F 02/27/25 07:40 Pulse 77 02/27/25 07:40 Resp 14 02/27/25 07:40 BP 105/70 02/27/25 07:40 Pulse Ox 100 02/27/25 07:40 FiO2 Intake & Output 02/26/25 02/27/25 02/27/25 18:59 06:59 18:59 Intake Total 640 240 Output Total 150 300 Balance 490 -300 240 Weight 142.5 kg Intake: IV 100 ceFAZolin 2 gm In 100 Dextrose 5% in Water 50 ml @ 100 mls/hr IVPB Q12HR [facility] Rx#:[id number] Oral 540 240 Output: Urine 150 300 Other: Voiding Method External Catheter External Catheter # Voids 1 # Bowel Movements 1 - Labs CBC & Chem 7: 02/27/25 09:00 02/27/25 09:00 Labs: Abnormal Lab Results - Last 24 Hours (Table) 02/26/25 02/26/25 02/26/25 Range/Units 11:03 16:29 20:18 WBC (4.50-10.00) 10*3/uL RBC (4.10-5.20) 10*6/uL Hgb (12.0-15.0) g/dL Hct (37.2-46.3) % MCH (27.0-32.0) pg Plt Count (140-440) 10*3/uL MPV (9.5-12.2) fL Immature Gran # (0.00-0.04) 10*3/uL Neutrophils # (1.80-7.70) 10*3/uL Sodium (137-145) mmol/L BUN (7-17) mg/dL Creatinine (0.52-1.04) mg/dL Glucose (74-99) mg/dL POC Glucose (mg/dL) 199 H 188 H 170 H (70-110) mg/dL 02/27/25 02/27/25 02/27/25 Range/Units 02:29 05:51 09:00 WBC 22.81 H (4.50-10.00) 10*3/uL RBC 2.81 L (4.10-5.20) 10*6/uL Hgb 7.3 L (12.0-15.0) g/dL Hct 22.6 L (37.2-46.3) % MCH 26.0 L (27.0-32.0) pg Plt Count 508 H (140-440) 10*3/uL MPV 8.9 L (9.5-12.2) fL Immature Gran # 0.68 H (0.00-0.04) 10*3/uL Neutrophils # 19.96 H (1.80-7.70) 10*3/uL Sodium (137-145) mmol/L BUN (7-17) mg/dL Creatinine (0.52-1.04) mg/dL Glucose (74-99) mg/dL POC Glucose (mg/dL) 152 H 142 H (70-110) mg/dL 02/27/25 Range/Units 09:00 WBC (4.50-10.00) 10*3/uL RBC (4.10-5.20) 10*6/uL Hgb (12.0-15.0) g/dL Hct (37.2-46.3) % MCH (27.0-32.0) pg Plt Count (140-440) 10*3/uL MPV (9.5-12.2) fL Immature Gran # (0.00-0.04) 10*3/uL Neutrophils # (1.80-7.70) 10*3/uL Sodium 129 L (137-145) mmol/L BUN 73 H (7-17) mg/dL Creatinine 1.35 H (0.52-1.04) mg/dL Glucose 152 H (74-99) mg/dL POC Glucose (mg/dL) (70-110) mg/dL Microbiology - Last 24 Hours (Table) 02/21/25 15:40 Blood Culture - Final Blood Assessment and Plan Plan: Assessment: 1. 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 Urine osmolality 252. Sodium 129 this morning. Cortisol level high. TSH normal. Urine osmolality 252. 2. Malignant melanoma with metastatic disease to liver and lymph nodes. 3. Acute kidney injury secondary to ATN secondary to severe sepsis. Baseline creatinine near 1 from December 2024. Creatinine 2.96 on admission and improved to 1.06 -1.35 today. 4. UTI on antibiotics. Urine culture positive for Proteus. 5. Metabolic acidosis secondary to acute kidney injury and IV fluids. Was also on metformin. On oral bicarb. Better. 6. Diabetes mellitus. 7. Anemia. Iron deficiency noted. s/p IV iron. Plan: Maintain urea. Encouraged oral intake as able to tolerate. Maintain fluid restriction. Samsca given February 25, 2025. Started on LR due to nausea vomiting. Continue for now. Repeat labs in the morning.
[2025-02-27 11:52] LABS: Glucose,Whole Blood 159 mg/dL (70-110)
--- NOTE | 2025-02-27 13:49 | P.PN ---
Subjective Progress Note Date: 02/26/25 Principal diagnosis: Reason for follow-up is sepsis and UTI Patient is a 55-year-old female with a past medical history significant for stage IV malignant melanoma on chemo, Diabetes Mellitus, GERD/Reflux, Hyperlipidemia, Hypertension, Osteoarthritis (OA) presenting to the hospital for evaluation of generalized weakness did have urinary symptoms a positive UA concerning for symptomatic UTI with sepsis requiring admission by ICU. On today's evaluation that is 02/26/2025,the patient denies any fever or any chills, patient is breathing comfortably on room air, the patient denies chest pain shortness of breath and no significant cough, patient denies abdominal brigitte n, did have an episode of nausea vomiting this morning but no diarrhea. Patient white count 16.8, creatinine is 1.07 Objective - Vital Signs Vital signs: Vital Signs Temp 98.4 F 02/26/25 08:00 Pulse 89 02/26/25 08:00 Resp 13 02/26/25 08:00 BP 119/71 02/26/25 08:00 Pulse Ox 96 02/26/25 08:00 FiO2 Intake & Output 02/25/25 02/26/25 02/26/25 18:59 06:59 18:59 Intake Total 760 640 Output Total 200 300 150 Balance 560 -300 490 Weight 142.2 kg Intake: IV 100 100 Sodium Ferric Gluconat- 100 Sucrose 125 mg In Sodium Chloride 0.9% 100 ml @ 100 mls/hr IVPB DAILY COUNTS INCLUDE 234 BEDS AT THE [facility] Rx#:[id number] ceFAZolin 2 gm In 100 Dextrose 5% in Water 50 ml @ 100 mls/hr IVPB Q12HR COUNTS INCLUDE 234 BEDS AT THE [facility] Rx#:[id number] Oral 660 540 Output: Urine 200 300 150 Other: Voiding Method External Catheter External Catheter External Catheter # Voids 4 2 # Bowel Movements 1 1 - Exam GENERAL DESCRIPTION: A middle-age female lying in bed in no distress RESPIRATORY SYSTEM: Unlabored breathing , decreased breath sounds at bases HEART: S1 S2 regular rate and rhythm , ABDOMEN: Soft , no tenderness EXTREMITIES: No edema feet - Labs CBC & Chem 7: 02/27/25 09:00 02/27/25 09:00 Labs: Abnormal Lab Results - Last 24 Hours (Table) 02/25/25 02/25/25 02/26/25 Range/Units 17:01 20:55 02:14 WBC (4.50-10.00) 10*3/uL RBC (4.10-5.20) 10*6/uL Hgb (12.0-15.0) g/dL Hct (37.2-46.3) % MCV (80.0-97.0) fL MCH (27.0-32.0) pg Plt Count (140-440) 10*3/uL MPV (9.5-12.2) fL Sodium (137-145) mmol/L Carbon Dioxide (22-30) mmol/L BUN (7-17) mg/dL Creatinine (0.52-1.04) mg/dL Glucose (74-99) mg/dL POC Glucose (mg/dL) 161 H 180 H 154 H (70-110) mg/dL 02/26/25 02/26/25 02/26/25 Range/Units 06:09 07:51 07:51 WBC 16.88 H (4.50-10.00) 10*3/uL RBC 2.92 L (4.10-5.20) 10*6/uL Hgb 7.4 L (12.0-15.0) g/dL Hct 22.8 L (37.2-46.3) % MCV 78.1 L (80.0-97.0) fL MCH 25.3 L (27.0-32.0) pg Plt Count 594 H (140-440) 10*3/uL MPV 8.8 L (9.5-12.2) fL Sodium 129 L (137-145) mmol/L Carbon Dioxide 21 L (22-30) mmol/L BUN 59 H (7-17) mg/dL Creatinine 1.07 H (0.52-1.04) mg/dL Glucose 155 H (74-99) mg/dL POC Glucose (mg/dL) 171 H (70-110) mg/dL 02/26/25 Range/Units 11:03 WBC (4.50-10.00) 10*3/uL RBC (4.10-5.20) 10*6/uL Hgb (12.0-15.0) g/dL Hct (37.2-46.3) % MCV (80.0-97.0) fL MCH (27.0-32.0) pg Plt Count (140-440) 10*3/uL MPV (9.5-12.2) fL Sodium (137-145) mmol/L Carbon Dioxide (22-30) mmol/L BUN (7-17) mg/dL Creatinine (0.52-1.04) mg/dL Glucose (74-99) mg/dL POC Glucose (mg/dL) 199 H (70-110) mg/dL Assessment and Plan (1) Sepsis Current Visit: Yes Status: Acute Code(s): A41.9 - SEPSIS, UNSPECIFIED ORGANISM SNOMED Code(s): 81349738 (2) LISSETTE (acute kidney injury) Current Visit: Yes Status: Acute Code(s): N17.9 - ACUTE KIDNEY FAILURE, UNSPECIFIED SNOMED Code(s): 57978610 (3) UTI (urinary tract infection) Current Visit: Yes Status: Acute Code(s): N39.0 - URINARY TRACT INFECTION, SITE NOT SPECIFIED SNOMED Code(s): 32463449 Plan: 1patient presented hospital with sepsis in this patient who did have tachycardia hypotension elevated white count meeting criteria for SIRS/sepsis source likely urinary in this patient has significantly positive UA along with urinary symptoms likely from enteric gram-negative pathogen keeping in mind his tory of cancer on chemo will need to cover for resistant gram-negative pathogen 2-patient elevated creatinine and high risk of nephrotoxicity from certain antibiotics 3-patient white count is trending up however no fever or any clinical worsening will continue with Rocephin repeat CBC with a.m. lab Dictation was produced using [employer] dictation software. please excuse any grammatical, word or spelling errors. Time with Patient: Less than 30
--- NOTE | 2025-02-27 13:50 | P.PN ---
Subjective Progress Note Date: 02/27/25 Principal diagnosis: Reason for follow-up is sepsis and UTI Patient is a 55-year-old female with a past medical history significant for stage IV malignant melanoma on chemo, Diabetes Mellitus, GERD/Reflux, Hyperlipidemia, Hypertension, Osteoarthritis (OA) presenting to the hospital for evaluation of generalized weakness did have urinary symptoms a positive UA concerning for symptomatic UTI with sepsis requiring admission by ICU. On today's evaluation that is 02/27/2025,the patient remains to be afebrile, patient is on room air not requiring supplemental oxygen and denies any shortness of breath no chest pain or cough.Patient denies having any nausea or vomiting, no abdominal pain and no diarrhea has been reported. Patient white count is up to 22.81, creatinine is 1.35 blood culture have been negative Objective - Vital Signs Vital signs: Vital Signs Temp 97.6 F 02/27/25 11:20 Pulse 65 02/27/25 11:20 Resp 16 02/27/25 11:20 BP 123/77 02/27/25 11:20 Pulse Ox 100 02/27/25 11:20 FiO2 Intake & Output 02/26/25 02/27/25 02/27/25 18:59 06:59 18:59 Intake Total 640 418 Output Total 150 300 Balance 490 -300 418 Weight 142.5 kg Intake: IV 100 ceFAZolin 2 gm In 100 Dextrose 5% in Water 50 ml @ 100 mls/hr IVPB Q12HR [facility] Rx#:[id number] Oral 540 418 Output: Urine 150 300 Other: Voiding Method External Catheter External Catheter External Catheter # Voids 1 # Bowel Movements 1 - Exam GENERAL DESCRIPTION: A middle-age female lying in bed in no distress RESPIRATORY SYSTEM: Unlabored breathing , decreased breath sounds at bases HEART: S1 S2 regular rate and rhythm , ABDOMEN: Soft , no tenderness EXTREMITIES: No edema feet - Labs CBC & Chem 7: 02/27/25 09:00 02/27/25 09:00 Labs: Abnormal Lab Results - Last 24 Hours (Table) 02/26/25 02/26/25 02/27/25 Range/Units 16:29 20:18 02:29 WBC (4.50-10.00) 10*3/uL RBC (4.10-5.20) 10*6/uL Hgb (12.0-15.0) g/dL Hct (37.2-46.3) % MCH (27.0-32.0) pg Plt Count (140-440) 10*3/uL MPV (9.5-12.2) fL Immature Gran # (0.00-0.04) 10*3/uL Neutrophils # (1.80-7.70) 10*3/uL Sodium (137-145) mmol/L BUN (7-17) mg/dL Creatinine (0.52-1.04) mg/dL Glucose (74-99) mg/dL POC Glucose (mg/dL) 188 H 170 H 152 H (70-110) mg/dL 02/27/25 02/27/25 02/27/25 Range/Units 05:51 09:00 09:00 WBC 22.81 H (4.50-10.00) 10*3/uL RBC 2.81 L (4.10-5.20) 10*6/uL Hgb 7.3 L (12.0-15.0) g/dL Hct 22.6 L (37.2-46.3) % MCH 26.0 L (27.0-32.0) pg Plt Count 508 H (140-440) 10*3/uL MPV 8.9 L (9.5-12.2) fL Immature Gran # 0.68 H (0.00-0.04) 10*3/uL Neutrophils # 19.96 H (1.80-7.70) 10*3/uL Sodium 129 L (137-145) mmol/L BUN 73 H (7-17) mg/dL Creatinine 1.35 H (0.52-1.04) mg/dL Glucose 152 H (74-99) mg/dL POC Glucose (mg/dL) 142 H (70-110) mg/dL 02/27/25 Range/Units 11:51 WBC (4.50-10.00) 10*3/uL RBC (4.10-5.20) 10*6/uL Hgb (12.0-15.0) g/dL Hct (37.2-46.3) % MCH (27.0-32.0) pg Plt Count (140-440) 10*3/uL MPV (9.5-12.2) fL Immature Gran # (0.00-0.04) 10*3/uL Neutrophils # (1.80-7.70) 10*3/uL Sodium (137-145) mmol/L BUN (7-17) mg/dL Creatinine (0.52-1.04) mg/dL Glucose (74-99) mg/dL POC Glucose (mg/dL) 159 H (70-110) mg/dL Microbiology - Last 24 Hours (Table) 02/21/25 15:40 Blood Culture - Final Blood Assessment and Plan (1) Sepsis Current Visit: Yes Status: Acute Code(s): A41.9 - SEPSIS, UNSPECIFIED ORGAN ISM SNOMED Code(s): 74036896 (2) LISSETTE (acute kidney injury) Current Visit: Yes Status: Acute Code(s): N17.9 - ACUTE KIDNEY FAILURE, UNSPECIFIED SNOMED Code(s): 17118248 (3) UTI (urinary tract infection) Current Visit: Yes Status: Acute Code(s): N39.0 - URINARY TRACT INFECTION, SITE NOT SPECIFIED SNOMED Code(s): 25566853 (4) Leukocytosis Current Visit: Yes Status: Acute Code(s): D72.829 - ELEVATED WHITE BLOOD CELL COUNT, UNSPECIFIED SNOMED Code(s): 881517657 Plan: 1patient presented hospital with sepsis in this patient who did have tachycardia hypotension elevated white count meeting criteria for SIRS/sepsis source likely urinary in this patient has significantly positive UA along with urinary symptoms likely from enteric gram-negative pathogen keeping in mind history of cancer on chemo will need to cover for resistant gram-negative pathogen 2-patient is afebrile however noticed to have worsening of her white count which is slightly concerning we will repeat her UA culture/blood culture check a CT of abdominal pelvis 3for now continue with Rocephin while waiting for the workup to be completed Dictation was produced using [employer] dictation software. please excuse any grammatical, word or spelling errors. Time with Patient: Less than 30
--- NOTE | 2025-02-27 13:54 | P.PN ---
Subjective Progress Note Date: 02/27/25 This is a pleasant 55-year-old female patient with a known history of diabetes melitis, type II, hypertension, hyperlipidemia, former smoker, peripheral neuropathy, SVT. She also has a history of metastatic malignant melanoma with mets to the liver and lymph nodes. She was in Dr. Botello's office yesterday for her third infusion of chemotherapy and was found to have abnormal labs and the patient also had generalized weakness. She was referred to the ER for the same. She was found to have a sodium of 118 and was initiated on 3% saline and admitted to the intensive care unit. She is seen today in consultation. She is awake and alert. Quite weak. Maintaining good O2 saturations up to 100% on dahlia m air. She briefly required norepinephrine for hypotension. The most recent sodium was 122. 3% saline is on pause. She has a sodium bicarbonate drip at 75 mL/h. Anticoagulated with Eliquis. White count 21.7. Hemoglobin 8.2. Platelets 591. Potassium 4.5. Bicarb 6. BUN 54. Creatinine 2.72. Glucose 65. Chest x-ray shows no focal consolidation. Some elevation in the right hemidiaphragm. The patient is seen today February 23, 2025 in follow-up in the intensive care unit. She is currently sitting up in bed. Awake and alert in no acute distress. Maintaining O2 saturations in the 90s on room air. She has been off norepinephrine since 5 AM this morning. She is receiving 0.45 normal saline with 2 A of bicarb at 75 mL/h. Her current sodium is 123. Potassium 3.6. Bicarb 15. BUN 44. Creatinine 1.98. Glucose 82. White count 17.7. Hemoglobin 7.4. Platelets 505. She is anticoagulated with Eliquis. She remains on cefazolin. On 02/24/2025, the patient is doing well the patient is recovering from acute septic event related to an underlying urinary tract infection. The patient had an acute kidney injury, she was hypotensive and she was also hyponatremic. The patient was taken off the hypertonic saline solution. Sodium level is gradually improving is currently up to 127 from a baseline of 118. LISSETTE is also improving and the creatinine is down to 1.3. The patient is awake and alert and communicating. She remains on IV Rocephin. She was found to have iron deficien cy anemia and the patient was given IV iron. On her blood work, the patient continues to have a component of an anion gap metabolic acidosis. The patient was started on oral bicarb. Serum bicarbonate 15, sodium levels at 127 with a potassium level of 3.9. Chloride is 99, WBC count 16.1 with a hemoglobin 7.3 and a platelet count of 543. The patient otherwise remains on long-term anticoagulation with Eliquis. The patient is known to have metastatic melanoma, treated with immunotherapy in outpatient basis. Patient is also on Lantus insulin 50 units and sliding scale coverage. She is diabetic. She has hypertension hyperlipidemia and peripheral neuropathy. Anticoagulation was given for paroxysmal atrial fibrillation. On 02/25/2025, the patient has no specific complaints. Doing well. Awake and alert send the patient is currently on room air oxygen. Blood work from today shows a sodium level of 126, serum bicarbonate 19, BUN 56 with a creatinine of 1.06. The patient had a white cell count from yesterday that was down to 16.1 and a hemoglobin of 7.3. Nephrology on the case regarding his ongoing hyponatremia. The patient remains on IV Rocephin regarding a Proteus mirabilis urinary tract infection. She is afebrile and she is hemodynamically stable. The patient will be given a dose of Samsca by nephrology. Remains on oral bicarb. Remains on IV iron. She remains on anticoagulation regarding paroxysmal atrial fibrillation. She is diabetic and she is known to have hy pertension hyperlipidemia and peripheral neuropathy. Remains on Lantus insulin 50 units daily. On 02/26/2025, the patient is being seen for a follow-up. The patient remains on room air oxygen. Very low energy and stamina the patient refused to get out of bed. She remains on room air oxygen she denies having any significant respite distress. The patient's sodium level is up to 129. Serum bicarb is up to 21. BUN is 59 with a creatinine of 1.07. White second 16.8 with a hemoglobin of 7.4. Noted, there has been no significant drop in hemoglobin and the patient seems to be chronically anemic. She has Proteus mirabilis in the urine and patient remains on IV Rocephin. No other significant events overnight and the patient will be transferred out of the intensive care unit yesterday. Noted the patient received a dose of Samsca yesterday and sodium level improved further. Hemodynamically stable. Tolerating diet. On 02/27/2025, the patient got transferred to the medical floor. The patient was in the ICU earlier and she got transferred out of the intensive care yesterday. She remains on IV Rocephin for a Proteus mirabilis urinary tract infection. Hemodynamically stable. White cell count of 22 with a hemoglobin 7.3. Sodium levels at 129, creatinine is 1.35 with a BUN of 73 and serum bicarb is at 22. Patient is still being seen by nephrology. She is on clear liquid diet. She is complaining of some limited nausea this morning. No signs of any respiratory distress and she remains on room air oxygen. She was able to sit up on a chair yesterday. The patient was given lactated ringer r by nephrology at rate of 75 cc an hour. Rest of the medication remain unchanged. Remains on oral bicarb. Given Reglan and Zofran for nausea. A Objective - Vital Signs Vital signs: Vital Signs Temp 97.6 F 02/27/25 07:40 Pulse 77 02/27/25 07:40 Resp 14 02/27/25 07:40 BP 105/70 02/27/25 07:40 Pulse Ox 100 02/27/25 07:40 FiO2 Intake & Output 02/26/25 02/27/25 02/27/25 18:59 06:59 18:59 Intake Total 640 240 Output Total 150 300 Balance 490 -300 240 Weight 142.5 kg Intake: IV 100 ceFAZolin 2 gm In 100 Dextrose 5% in Water 50 ml @ 100 mls/hr IVPB Q12HR [facility] Rx#:[id number] Oral 540 240 Output: Urine 150 300 Other: Voiding Method External Catheter External Catheter # Voids 1 # Bowel Movements 1 - Exam The patient appeared well nourished and normally developed. Vital signs as documented. Morbidly obese with a BMI of 48.5 Head exam is unremarkable. No scleral icterus or corneal arcus noted. Neck is without jugular venous distension, thyromegaly, or carotid bruits. Carotid upstrokes are brisk bilaterally. Lungs are clear to auscultation and percussion. Cardiac exam reveals the PMI to be normally sized and situated. Rhythm is regular. First and second heart sounds normal. No murmurs, rubs or gallops. Abdominal exam reveals normal bowel sounds, no masses, no organomegaly and no aortic enlargement. On her pelvic examination, the patient has an irregular mass in her vulva consistent with melanoma Extremities are nonedematous and both femoral and pedal pulses are normal. Examination of the skin revealed no evidence of significant rashes, suspicious appearing nevi or other concerning lesions. Neurologically, the patient is awake and alert and the patient does not have any focal neurological deficit. Cranial nerves are essentially intact. - Labs CBC & Chem 7: 02/27/25 09:00 02/27/25 09:00 Labs: Abnormal Lab Results - Last 24 Hours (Table) 02/26/25 02/26/25 02/26/25 Range/Units 11:03 16:29 20:18 WBC (4.50-10.00) 10*3/uL RBC (4.10-5.20) 10*6/uL Hgb (12.0-15.0) g/dL Hct (37.2-46.3) % MCH (27.0-32.0) pg Plt Count (140-440) 10*3/uL MPV (9.5-12.2) fL Immature Gran # (0.00-0.04) 10*3/uL Neutrophils # (1.80-7.70) 10*3/uL Sodium (137-145) mmol/L BUN (7-17) mg/dL Creatinine (0.52-1.04) mg/dL Glucose (74-99) mg/dL POC Glucose (mg/dL) 199 H 188 H 170 H (70-110) mg/dL 02/27/25 02/27/25 02/27/25 Range/Units 02:29 05:51 09:00 WBC 22.81 H (4.50-10.00) 10*3/uL RBC 2.81 L (4.10-5.20) 10*6/uL Hgb 7.3 L (12.0-15.0) g/dL Hct 22.6 L (37.2-46.3) % MCH 26.0 L (27.0-32.0) pg Plt Count 508 H (140-440) 10*3/uL MPV 8.9 L (9.5-12.2) fL Immature Gran # 0.68 H (0.00-0.04) 10*3/uL Neutrophils # 19.96 H (1.80-7.70) 10*3/uL Sodium (137-145) mmol/L BUN (7-17) mg/dL Creatinine (0.52-1.04) mg/dL Glucose (74-99) mg/dL POC Glucose (mg/dL) 152 H 142 H (70-110) mg/dL 02/27/25 Range/Units 09:00 WBC (4.50-10.00) 10*3/uL RBC (4.10-5.20) 10*6/uL Hgb (12.0-15.0) g/dL Hct (37.2-46.3) % MCH (27.0-32.0) pg Plt Count (140-440) 10*3/uL MPV (9.5-12.2) fL Immature Gran # (0.00-0.04) 10*3/uL Neutrophils # (1.80-7.70) 10*3/uL Sodium 129 L (137-145) mmol/L BUN 73 H (7-17) mg/dL Creatinine 1.35 H (0.52-1.04) mg/dL Glucose 152 H (74-99) mg/dL POC Glucose (mg/dL) (70-110) mg/dL Microbiology - Last 24 Hours (Table) 02/21/25 15:40 Blood Culture - Final Blood Assessment and Plan Plan: Acute sepsis, likely secondary underlying urine tract infection. Urine cultures positive for Klebsiella pneumoniae and the patient remains on IV Rocephin. Hemodynamically stable on no pressors Acute leukocytosis, secondary to above Acute kidney injury, improving and today's creatinine is higher compared to yesterday. The patient was started on lactated Ringer Acute hyponatremia likely secondary acute kidney injury and sepsis. Sodium levels improving and is currently up to 129. Morbid obesity with a BMI of 48.5 Malignant melanoma with metastatic disease to the liver and lymph nodes, received 3 cycles of Opdualag thus far. The patient has a pelvic mass/vaginal mass consistent with melanoma. Metabolic acidosis secondary to above, essentially anion gap metabolic acidosis and the patient is currently on oral bicarb. Serum bicarb is improving and the patient remains on oral bicarbonate replacement. Urinary tract infection secondary to gram-negative bacilli, cultures are positive for Proteus mirabilis Paroxysmal A-fib, currently on anticoagulation with Eliquis. Cardiac rhythm is sinus. Iron deficiency anemia, currently on IV iron Diabetes mellitus type 2, currently on Lantus insulin. History of UTIs History of hypertension Hyperlipidemia Previous fracture of the right lower extremity with difficulty with mobility Morbid obesity BMI 47 Plan: Patient currently on room air oxygen Hemodynamically stable on no pressors Lactated Ringer at rate of 75 cc an hour Sodium levels are still low, will be managed by nephrology. Renal function is to be further monitored Monitor the white cell count Oral bicarb IV Rocephin No pressors for now Continue anticoagulation with Eliquis Will move the patient out of the intensive care unit. Involve physical therapy. Increase mobility
[2025-02-27] MEDS: FLUCONAZOLE 100 MG TAB PO ONE (14:53)
[2025-02-27] MEDS: IOPAMIDOL CONTRAST (ORAL USE) VIAL PO PRN (14:53)
[2025-02-27 16:25] LABS: Glucose,Whole Blood 114 mg/dL (70-110)
--- NOTE | 2025-02-27 17:22 | CT ---
EXAMINATION TYPE: CT abdomen pelvis wo con DATE OF EXAM: 02/27/2025 4:51 PM COMPARISON: CT abdomen and pelvis 11/22/2023, CT chest 11/23/2023 CLINICAL INDICATION: Female, 55 years old with history of Pyelonephritis/worsening leukocytosis, Pyel onephritis/worsening leukocytosis TECHNIQUE: Axial images were obtained from above the diaphragm to the pubic rami in the axial plane a t 5 mm thick sections. Reconstructed images are reviewed on the computer in the coronal plane. CONTRAST: mL of . Study performed with Oral Contrast DLP: 3404.5 mGycm, Automated exposure control for dose reduction was used. FINDINGS: Limited CT sections are obtained the lung bases. There are numerous nodules within the bilateral fely g bases. Larger nodules measure approximately 1.2 to 1.3 cm in size. A 1.9 cm nodules along the poste rior medial left lung base. CT ABDOMEN: There is a periumbilical hernia containing mesenteric fat with an opening 2.1 cm. Liver: Numerous hypodensities are scattered throughout the liver compatible with metastatic disease. Spleen: Normal Pancreas: Atrophic Adrenal glands: Left adrenal gland appears normal. Right adrenal gland is thickened at 1.7 cm. Gallbladder: Normal Kidneys: No masses are evident. No hydronephrosis is present. No cysts are present. Delayed images were obtained through the kidneys, which remain unremarkable. Aorta: Vascular calcification is within the aorta. Inferior vena cava: Normal. CT PELVIS: Loops of bowel within the abdomen and pelvis are normal. There are loops of bowel which are incom pletely distended or lack oral contrast limiting their evaluation. Appendix: Normal as visualized. Urinary bladder: Normal. Genitourinary structures: Osseous structures: No suspicious lytic or sclerotic lesions. Lymphadenopathy: There are multiple enlarged lymph nodes adjacent to the aorta and inferior vena cava . These extend into the iliac chain. Largest lymph node appears to be 3.7 cm in the left iliac chain. Marked enlarged lymphadenopathy is within the bilateral inguinal regions measuring 10.3 cm on the ri ght and 7.3 cm on the left. There are additional smaller lymph nodes. Subcutaneous increased density is present at the level of the iliac wings both medially and laterally . These are nonspecific and could be related to edema or contusions. Underlying masses could be consi dered. These extend out of the [id number] does not completely evaluated. IMPRESSION: 1. Interval development of massive inguinal lymph nodes. Extensive lymphadenopathy extends through t he additional areas including iliac chain, Periaortic and retrocaval regions. 2. Interval development of multiple hepatic masses can be compatible with metastasis. 3. Interval development of multiple bilateral lung base nodules. CT chest recommended for additional evaluation of the chest. 4. Mild thickening of the right adrenal gland, an interval change and may be suspicious for metastati c lesion A Yellow level critical message alert has been initiated for Anil Bowman via the [employer] on 02/27/2025 5:19 PM. This message alert has been sent to Anil Bowman via [employer] preferences provided by the clinician for the receipt of Radiology Critical Findings. Message ID [id number]. [facility], , 02/27/2025 5:19 PM
[2025-02-27 17:47] LABS: Appearance,Urine Cloudy (Clear); Bacteria,Urine Occasional /hpf; Bilirubin,Urine Negative (Negative); Blood,Urine Large (Negative); Color,Urine Yellow; Glucose,Urine (UA) Negative (Negative); Ketones,Urine Negative (Negative); Leukocyte Esterase,Urine Large (Negative); Nitrite,Urine Negative (Negative); PH, Urine 6.5 (5.0-8.0); Protein,Urine 1+ (Negative); RBC,Urine >182 /hpf (0-5); Specific Gravity,Urine 1.014 (1.001-1.035); Squamous Epithelial Cell,Urine 1 /hpf (0-4); Urobilinogen,Urine <2.0 mg/dL (<2.0); WBC,Urine >182 /hpf (0-5)
[2025-02-27 20:38] LABS: Glucose,Whole Blood 128 mg/dL (70-110)
[2025-02-28 02:02] LABS: Glucose,Whole Blood 161 mg/dL (70-110)
[2025-02-28 05:53] LABS: Glucose,Whole Blood 125 mg/dL (70-110)
[2025-02-28 07:27] LABS: African American GFR (CKD) 35 (>60 ml/min/1.73 sqM); Anion Gap 10 mmol/L; Basophils # (A) 0.04 10*3/uL (0.00-0.10); Basophils % (A) 0.2 %; Blood Urea Nitrogen 89 mg/dL (7-17); Calcium 8.9 mg/dL (8.4-10.2); Carbon Dioxide 20 mmol/L (22-30); Chloride 94 mmol/L (98-107); Eosinophils # (A) 0.39 10*3/uL (0.04-0.35); Glucose 99 mg/dL (74-99); HCT 21.2 % (37.2-46.3); Lymphocytes # (A) 1.22 10*3/uL (0.90-5.00); Lymphocytes % (A) 6.2 %; MCH 25.1 pg (27.0-32.0); MCHC 31.1 g/dL (32.0-37.0); MCV 80.6 fL (80.0-97.0); Magnesium 1.7 mg/dL (1.6-2.3); Mean Platelet Volume 9.2 fL (9.5-12.2); Monocytes # (A) 0.62 10*3/uL (0.20-1.00); Monocytes % (A) 3.2 %; Neutrophils # (A) 16.72 10*3/uL (1.80-7.70); Neutrophils % (A) 85.1 %; Non-African American GFR(CKD) 30 (>60 ml/min/1.73 sqM); Platelet Count 529 10*3/uL (140-440); Potassium 4.1 mmol/L (3.5-5.1); RBC 2.63 10*6/uL (4.10-5.20); Sodium 124 mmol/L (137-145); WBC 19.63 10*3/uL (4.50-10.00)
[2025-02-28 07:31] LABS: HGB 6.6 g/dL (12.0-15.0)
[2025-02-28] MEDS: FLUCONAZOLE 100 MG TAB PO SCH (08:35)
--- NOTE | 2025-02-28 11:11 | P.PN ---
Subjective Patient is seen in follow-up for acute kidney injury and hyponatremia. Renal function worse with creatinine 1.82. Sodium level down to 124. She is currently receiving lactated Ringer's. She is having vaginal bleeding. Hemoglobin 6.6 and is scheduled to receive a unit of blood today. Vital signs are stable. General: No acute distress. HEENT: Head exam is unremarkable. LUNGS: No audible rhonchi or wheezes. HEART: Rate and Rhythm are regular. ABDOMEN: Nontender. EXTREMITITES: Trace edema. Objective - Vital Signs Vital signs: Vital Signs Temp 97.6 F 02/28/25 10:52 Pulse 66 02/28/25 10:52 Resp 16 02/28/25 10:52 BP 104/66 02/28/25 10:52 Pulse Ox 100 02/28/25 10:52 FiO2 Intake & Output 02/27/25 02/28/25 02/28/25 18:59 06:59 18:59 Intake Total 1518 1945 0 Output Total 200 400 Balance 1318 1545 0 Weight 142.5 kg Intake: Intake, IV Titration 950 825 Amount Lactated Ringers 1,000 ml 900 825 @ 75 mls/hr IV .[id number] [facility] Rx#:[id number] cefTRIAXone 2 gm In 50 Dextrose 5% in Water 50 ml @ 100 mls/hr IVPB Q24HR [facility] Rx#:[id number] Oral 568 1120 Blood Product 0 Unit 0 Output: Urine 200 Urine/Stool Mix 400 Other: Voiding Method External Catheter Bedside Commode Bedside Commode # Voids 1 2 # Bowel Movements 1 1 - Labs CBC & Chem 7: 02/28/25 06:41 02/28/25 06:41 Labs: Abnormal Lab Results - Last 24 Hours (Table) 02/27/25 02/27/25 02/27/25 Range/Units 11:51 16:24 17:11 WBC (4.50-10.00) 10*3/uL RBC (4.10-5.20) 10*6/uL Hgb (12.0-15.0) g/dL Hct (37.2-46.3) % MCH (27.0-32.0) pg MCHC (32.0-37.0) g/dL Plt Count (140-440) 10*3/uL MPV (9.5-12.2) fL Immature Gran # (0.00-0.04) 10*3/uL Neutrophils # (1.80-7.70) 10*3/uL Eosinophils # (0.04-0.35) 10*3/uL Sodium (137-145) mmol/L Chloride (98-107) mmol/L Carbon Dioxide (22-30) mmol/L BUN (7-17) mg/dL Creatinine (0.52-1.04) mg/dL POC Glucose (mg/dL) 159 H 114 H (70-110) mg/dL Urine Appearance Cloudy H (Clear) Urine Protein 1+ H (Negative) Urine Blood Large H (Negative) Ur Leukocyte Esterase Large H (Negative) Urine RBC >182 H (0-5) /hpf Urine WBC >182 H (0-5) /hpf Urine WBC Clumps Many H (None) /hpf Urine Bacteria Occasional H (None) /hpf Crossmatch 02/27/25 02/28/25 02/28/25 Range/Units 20:36 02:00 05:52 WBC (4.50-10.00) 10*3/uL RBC (4.10-5.20) 10*6/uL Hgb (12.0-15.0) g/dL Hct (37.2-46.3) % MCH (27.0-32.0) pg MCHC (32.0-37.0) g/dL Plt Count (140-440) 10*3/uL MPV (9.5-12.2) fL Immature Gran # (0.00-0.04) 10*3/uL Neutrophils # (1.80-7.70) 10*3/uL Eosinophils # (0.04-0.35) 10*3/uL Sodium (137-145) mmol/L Chloride (98-107) mmol/L Carbon Dioxide (22-30) mmol/L BUN (7-17) mg/dL Creatinine (0.52-1.04) mg/dL POC Glucose (mg/dL) 128 H 161 H 125 H (70-110) mg/dL Urine Appearance (Clear) Urine Protein (Negative) Urine Blood (Negative) Ur Leukocyte Esterase (Negative) Urine RBC (0-5) /hpf Urine WBC (0-5) /hpf Urine WBC Clumps (None) /hpf Urine Bacteria (None) /hpf Crossmatch 02/28/25 02/28/25 02/28/25 Range/Units 06:41 06:41 09:18 WBC 19.63 H (4.50-10.00) 10*3/uL RBC 2.63 L (4.10-5.20) 10*6/uL Hgb 6.6 L* (12.0-15.0) g/dL Hct 21.2 L (37.2-46.3) % MCH 25.1 L (27.0-32.0) pg MCHC 31.1 L (32.0-37.0) g/dL Plt Count 529 H (140-440) 10*3/uL MPV 9.2 L (9.5-12.2) fL Immature Gran # 0.64 H (0.00-0.04) 10*3/uL Neutrophils # 16.72 H (1.80-7.70) 10*3/uL Eosinophils # 0.39 H (0.04-0.35) 10*3/uL Sodium 124 L (137-145) mmol/L Chloride 94 L (98-107) mmol/L Carbon Dioxide 20 L (22-30) mmol/L BUN 89 H (7-17) mg/dL Creatinine 1.82 H (0.52-1.04) mg/dL POC Glucose (mg/dL) (70-110) mg/dL Urine Appearance (Clear) Urine Protein (Negative) Urine Blood (Negative) Ur Leukocyte Esterase (Negative) Urine RBC (0-5) /hpf Urine WBC (0-5) /hpf Urine WBC Clumps (None) /hpf Urine Bacteria (None) /hpf Crossmatch See Detail Assessment and Plan Plan: Assessment: 1. 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 Urine osmolality 252. Sodium 124 this morning. Cortisol level high. TSH normal. Urine osmolality 252. 2. Malignant melanoma with metastatic disease to liver and lymph nodes. 3. Acute kidney injury secondary to ATN secondary to severe sepsis. Baseline creatinine near 1 from December 2024. Creatinine 2.96 on admission and improved to 1.06 - now worsening again due to acute blood loss anemia. 4. UTI on antibiotics. Urine culture positive for Proteus. 5. Metabolic acidosis secondary to acute kidney injury and IV fluids. Was also on metformin. On oral bicarb. 6. Diabetes mellitus. 7. Anemia. Iron deficiency noted. s/p IV iron. Having vaginal bleeding. Hemoglobin 6.6 today. 8. Mild volume overload. Plan: Maintain urea. Encouraged oral intake as able to tolerate. Maintain fluid restriction. Samsca given February 25, 2025. Hep-Lock IV fluids. Lasix 40 mg IV once after blood transfusion completed. Repeat labs in the morning. If no improvement in sodium level tomorrow, may need to repeat Samsca.
[2025-02-28 11:26] LABS: Glucose,Whole Blood 139 mg/dL (70-110)
[2025-02-28] MEDS: FUROSEMIDE 10 MG/ML 4 ML VIAL IV STA (14:00)
--- NOTE | 2025-02-28 15:28 | P.PN ---
Subjective Progress Note Date: 02/28/25 Principal diagnosis: Reason for follow-up is sepsis and UTI Patient is a 55-year-old female with a past medical history significant for stage IV malignant melanoma on chemo, Diabetes Mellitus, GERD/Reflux, Hyperlipidemia, Hypertension, Osteoarthritis (OA) presenting to the hospital for evaluation of generalized weakness did have urinary symptoms a positive UA concerning for symptomatic UTI with sepsis requiring admission by ICU. On today's evaluation that is 02/28/2025, the patient continues to be afebrile, the patient is on room air and breathing comfortably, the Pt denies having any chest pain or cough, the patient denies having any abdominal pain no vomiting or any diarrhea has been reported by the nursing staff. Patient white count is down to 19.63 hemoglobin is 6.6 creatinine is 1.8 2 repeat UA is positive CT abdominal pelvis did shows significant lymphadenopathy and hepatic metastasis Objective - Vital Signs Vital signs: Vital Signs Temp 97.8 F 02/28/25 11:22 Pulse 71 02/28/25 11:22 Resp 18 02/28/25 11:22 BP 96/56 02/28/25 11:22 Pulse Ox 99 02/28/25 11:22 FiO2 Intake & Output 02/27/25 02/28/25 02/28/25 18:59 06:59 18:59 Intake Total 1518 1945 0 Output Total 200 400 Balance 1318 1545 0 Weight 142.5 kg 142.5 kg Intake: Intake, IV Titration 950 825 Amount Lactated Ringers 1,000 ml 900 825 @ 75 mls/hr IV .[id number] [facility] Rx#:[id number] cefTRIAXone 2 gm In 50 Dextrose 5% in Water 50 ml @ 100 mls/hr IVPB Q24HR [facility] Rx#:[id number] Oral 568 1120 Blood Product 0 Unit 0 Output: Urine 200 Urine/Stool Mix 400 Other: Voiding Method External Catheter Bedside Commode Bedside Commode # Voids 1 2 # Bowel Movements 1 1 - Exam GENERAL DESCRIPTION: A middle-age female lying in bed in no distress RESPIRATORY SYSTEM: Unlabored breathing , decreased breath sounds at bases HEART: S1 S2 regular rate and rhythm , ABDOMEN: Soft , no tenderness EXTREMITIES: No edema feet - Labs CBC & Chem 7: 02/28/25 06:41 02/28/25 06:41 Labs: Abnormal Lab Results - Last 24 Hours (Table) 02/27/25 02/27/25 02/27/25 Range/Units 11:51 16:24 17:11 WBC (4.50-10.00) 10*3/uL RBC (4.10-5.20) 10*6/uL Hgb (12.0-15.0) g/dL Hct (37.2-46.3) % MCH (27.0-32.0) pg MCHC (32.0-37.0) g/dL Plt Count (140-440) 10*3/uL MPV (9.5-12.2) fL Immature Gran # (0.00-0.04) 10*3/uL Neutrophils # (1.80-7.70) 10*3/uL Eosinophils # (0.04-0.35) 10*3/uL Sodium (137-145) mmol/L Chloride (98-107) mmol/L Carbon Dioxide (22-30) mmol/L BUN (7-17) mg/dL Creatinine (0.52-1.04) mg/dL POC Glucose (mg/dL) 159 H 114 H (70-110) mg/dL Urine Appearance Cloudy H (Clear) Urine Protein 1+ H (Negative) Urine Blood Large H (Negative) Ur Leukocyte Esterase Large H (Negative) Urine RBC >182 H (0-5) /hpf Urine WBC >182 H (0-5) /hpf Urine WBC Clumps Many H (None) /hpf Urine Bacteria Occasional H (None) /hpf Crossmatch 02/27/25 02/28/25 02/28/25 Range/Units 20:36 02:00 05:52 WBC (4.50-10.00) 10*3/uL RBC (4.10-5.20) 10*6/uL Hgb (12.0-15.0) g/dL Hct (37.2-46.3) % MCH (27.0-32.0) pg MCHC (32.0-37.0) g/dL Plt Count (140-440) 10*3/uL MPV (9.5-12.2) fL Immature Gran # (0.00-0.04) 10*3/uL Neutrophils # (1.80-7.70) 10*3/uL Eosinophils # (0.04-0.35) 10*3/uL Sodium (137-145) mmol/L Chloride (98-107) mmol/L Carbon Dioxide (22-30) mmol/L BUN (7-17) mg/dL Creatinine (0.52-1.04) mg/dL POC Glucose (mg/dL) 128 H 161 H 125 H (70-110) mg/dL Urine Appearance (Clear) Urine Protein (Negative) Urine Blood (Negative) Ur Leukocyte Esterase (Negative) Urine RBC (0-5) /hpf Urine WBC (0-5) /hpf Urine WBC Clumps (None) /hpf Urine Bacteria (None) /hpf Crossmatch 02/28/25 02/28/25 02/28/25 Range/Units 06:41 06:41 09:18 WBC 19.63 H (4.50-10.00) 10*3/uL RBC 2.63 L (4.10-5.20) 10*6/uL Hgb 6.6 L* (12.0-15.0) g/dL Hct 21.2 L (37.2-46.3) % MCH 25.1 L (27.0-32.0) pg MCHC 31.1 L (32.0-37.0) g/dL Plt Count 529 H (140-440) 10*3/uL MPV 9.2 L (9.5-12.2) fL Immature Gran # 0.64 H (0.00-0.04) 10*3/uL Neutrophils # 16.72 H (1.80-7.70) 10*3/uL Eosinophils # 0.39 H (0.04-0.35) 10*3/uL Sodium 124 L (137-145) mmol/L Chloride 94 L (98-107) mmol/L Carbon Dioxide 20 L (22-30) mmol/L BUN 89 H (7-17) mg/dL Creatinine 1.82 H (0.52-1.04) mg/dL POC Glucose (mg/dL) (70-110) mg/dL Urine Appearance (Clear) Urine Protein (Negative) Urine Blood (Negative) Ur Leukocyte Esterase (Negative) Urine RBC (0-5) /hpf Urine WBC (0-5) /hpf Urine WBC Clumps (None) /hpf Urine Bacteria (None) /hpf Crossmatch See Detail 02/28/25 Range/Units 11:24 WBC (4.50-10.00) 10*3/uL RBC (4.10-5.20) 10*6/uL Hgb (12.0-15.0) g/dL Hct (37.2-46.3) % MCH (27.0-32.0) pg MCHC (32.0-37.0) g/dL Plt Count (140-440) 10*3/uL MPV (9.5-12.2) fL Immature Gran # (0.00-0.04) 10*3/uL Neutrophils # (1.80-7.70) 10*3/uL Eosinophils # (0.04-0.35) 10*3/uL Sodium (137-145) mmol/L Chloride (98-107) mmol/L Carbon Dioxide (22-30) mmol/L BUN (7-17) mg/dL Creatinine (0.52-1.04) mg/dL POC Glucose (mg/dL) 139 H (70-110) mg/dL Urine Appearance (Clear) Urine Protein (Negative) Urine Blood (Negative) Ur Leukocyte Esterase (Negative) Urine RBC (0-5) /hpf Urine WBC (0-5) /hpf Urine WBC Clumps (None) /hpf Urine Bacteria (None) /hpf Crossmatch Assessment and Plan (1) Sepsis Current Visit: Yes Status: Acute Code(s): A41.9 - SEPSIS, UNSPECIFIED ORGANISM SNOMED Code(s): 06018489 (2) LISSETTE (acute kidney injury) Current Visit: Yes Status: Acute Code(s): N17.9 - ACUTE KIDNEY FAILURE, UNSPECIFIED SNOMED Code(s): 18590165 (3) UTI (urinary tract infection) Current Visit: Yes Status: Acute Code(s): N39.0 - URINARY TRACT INFECTION, SITE NOT SPECIFIED SNOMED Code(s): 77942856 (4) Leukocytosis Current Visit: Yes Status: Acute Code(s): D72.829 - ELEVATED WHITE BLOOD CELL COUNT, UNSPECIFIED SNOMED Code(s): 373296605 Plan: 1patient presented hospital with sepsis in this patient who did have tachycardia hypotension elevated white count meeting criteria for SIRS/sepsis source likely urinary in this patient has significantly positive UA along with urinary symptoms likely from enteric gram-negative pathogen keeping in mind history of cancer on chemo will need to cover for resistant gram-negative pathogen 2-patient is afebrile however noticed to have worsening of her white count for the patient have a CT of abdominal pelvis mention worsening lymphadenopathy and concern for hepatic metastasis needs to be reevaluated by oncology repeat cultures currently pending white count is trending down to continue with Rocephin and Diflucan at this point Dictation was produced using [employer] dictation software. please excuse any grammatical, word or spelling errors.
--- NOTE | 2025-02-28 16:11 | P.PN ---
Subjective Progress Note Date: 02/28/25 This is a pleasant 55-year-old female patient with a known history of diabetes melitis, type II, hypertension, hyperlipidemia, former smoker, peripheral neuropathy, SVT. She also has a history of metastatic malignant melanoma with mets to the liver and lymph nodes. She was in Dr. Botello's office yesterday for her third infusion of chemotherapy and was found to have abnormal labs and the patient also had generalized weakness. She was referred to the ER for the same. She was found to have a sodium of 118 and was initiated on 3% saline and admitted to the intensive care unit. She is seen today in consultation. She is awake and alert. Quite weak. Maintaining good O2 saturations up to 100% on dahlia m air. She briefly required norepinephrine for hypotension. The most recent sodium was 122. 3% saline is on pause. She has a sodium bicarbonate drip at 75 mL/h. Anticoagulated with Eliquis. White count 21.7. Hemoglobin 8.2. Platelets 591. Potassium 4.5. Bicarb 6. BUN 54. Creatinine 2.72. Glucose 65. Chest x-ray shows no focal consolidation. Some elevation in the right hemidiaphragm. The patient is seen today February 23, 2025 in follow-up in the intensive care unit. She is currently sitting up in bed. Awake and alert in no acute distress. Maintaining O2 saturations in the 90s on room air. She has been off norepinephrine since 5 AM this morning. She is receiving 0.45 normal saline with 2 A of bicarb at 75 mL/h. Her current sodium is 123. Potassium 3.6. Bicarb 15. BUN 44. Creatinine 1.98. Glucose 82. White count 17.7. Hemoglobin 7.4. Platelets 505. She is anticoagulated with Eliquis. She remains on cefazolin. On 02/24/2025, the patient is doing well the patient is recovering from acute septic event related to an underlying urinary tract infection. The patient had an acute kidney injury, she was hypotensive and she was also hyponatremic. The patient was taken off the hypertonic saline solution. Sodium level is gradually improving is currently up to 127 from a baseline of 118. LISSETTE is also improving and the creatinine is down to 1.3. The patient is awake and alert and communicating. She remains on IV Rocephin. She was found to have iron deficien cy anemia and the patient was given IV iron. On her blood work, the patient continues to have a component of an anion gap metabolic acidosis. The patient was started on oral bicarb. Serum bicarbonate 15, sodium levels at 127 with a potassium level of 3.9. Chloride is 99, WBC count 16.1 with a hemoglobin 7.3 and a platelet count of 543. The patient otherwise remains on long-term anticoagulation with Eliquis. The patient is known to have metastatic melanoma, treated with immunotherapy in outpatient basis. Patient is also on Lantus insulin 50 units and sliding scale coverage. She is diabetic. She has hypertension hyperlipidemia and peripheral neuropathy. Anticoagulation was given for paroxysmal atrial fibrillation. On 02/25/2025, the patient has no specific complaints. Doing well. Awake and alert send the patient is currently on room air oxygen. Blood work from today shows a sodium level of 126, serum bicarbonate 19, BUN 56 with a creatinine of 1.06. The patient had a white cell count from yesterday that was down to 16.1 and a hemoglobin of 7.3. Nephrology on the case regarding his ongoing hyponatremia. The patient remains on IV Rocephin regarding a Proteus mirabilis urinary tract infection. She is afebrile and she is hemodynamically stable. The patient will be given a dose of Samsca by nephrology. Remains on oral bicarb. Remains on IV iron. She remains on anticoagulation regarding paroxysmal atrial fibrillation. She is diabetic and she is known to have hy pertension hyperlipidemia and peripheral neuropathy. Remains on Lantus insulin 50 units daily. On 02/26/2025, the patient is being seen for a follow-up. The patient remains on room air oxygen. Very low energy and stamina the patient refused to get out of bed. She remains on room air oxygen she denies having any significant respite distress. The patient's sodium level is up to 129. Serum bicarb is up to 21. BUN is 59 with a creatinine of 1.07. White second 16.8 with a hemoglobin of 7.4. Noted, there has been no significant drop in hemoglobin and the patient seems to be chronically anemic. She has Proteus mirabilis in the urine and patient remains on IV Rocephin. No other significant events overnight and the patient will be transferred out of the intensive care unit yesterday. Noted the patient received a dose of Samsca yesterday and sodium level improved further. Hemodynamically stable. Tolerating diet. On 02/27/2025, the patient got transferred to the medical floor. The patient was in the ICU earlier and she got transferred out of the intensive care yesterday. She remains on IV Rocephin for a Proteus mirabilis urinary tract infection. Hemodynamically stable. White cell count of 22 with a hemoglobin 7.3. Sodium levels at 129, creatinine is 1.35 with a BUN of 73 and serum bicarb is at 22. Patient is still being seen by nephrology. She is on clear liquid diet. She is complaining of some limited nausea this morning. No signs of any respiratory distress and she remains on room air oxygen. She was able to sit up on a chair yesterday. The patient was given lactated ringer r by nephrology at rate of 75 cc an hour. Rest of the medication remain unchanged. Remains on oral bicarb. Given Reglan and Zofran for nausea. A On 02/28/2025, the patient remains out of the intensive care that the patient is completing her treatment with sepsis. She also had other comorbidities including hyponatremia and acute kidney injury for which the patient is being seen by nephrology. On today's blood work, the patient was noted to have worsening in the hemoglobin and a drop in hemoglobin was noted down to 6.6. The white cell count was at 19.6. There is also interval worsening renal function with a BUN of 89 and a creatinine of 1.2. Sodium level is also dropped down to 124. Nephrology on the case and the patient was given a dose of Samsca. The patient will be also receiving a unit of packed RBC. No evidence of any GI bleeding. Her anemia seems to be more solid chronic in nature. She remains hemodynamically stable. She remains on room air oxygen. The patient got transferred out of the intensive care unit 48 hours ago. Objective - Vital Signs Vital signs: Vital Signs Temp 98.2 F 02/28/25 15:00 Pulse 71 02/28/25 15:00 Resp 20 02/28/25 15:00 BP 115/71 02/28/25 16:05 Pulse Ox 99 02/28/25 15:00 FiO2 Intake & Output 02/27/25 02/28/25 02/28/25 18:59 06:59 18:59 Intake Total 1518 1945 310 Output Total 200 400 Balance 1318 1545 310 Weight 142.5 kg 142.5 kg Intake: Intake, IV Titration 950 825 Amount Lactated Ringers 1,000 ml 900 825 @ 75 mls/hr IV .[id number] [facility] Rx#:[id number] cefTRIAXone 2 gm In 50 Dextrose 5% in Water 50 ml @ 100 mls/hr IVPB Q24HR [facility] Rx#:[id number] Oral 568 1120 Blood Product 310 Rc As-1 Unit 310 [id number] Output: Urine 200 Urine/Stool Mix 400 Other: Voiding Method External Catheter Bedside Commode Bedside Commode # Voids 1 2 # Bowel Movements 1 1 - Exam The patient appeared well nourished and normally developed. Vital signs as docu mented. Morbidly obese with a BMI of 48.5 Head exam is unremarkable. No scleral icterus or corneal arcus noted. Neck is without jugular venous distension, thyromegaly, or carotid bruits. Carotid upstrokes are brisk bilaterally. Lungs are clear to auscultation and percussion. Cardiac exam reveals the PMI to be normally sized and situated. Rhythm is regular. First and second heart sounds normal. No murmurs, rubs or gallops. Abdominal exam reveals normal bowel sounds, no masses, no organomegaly and no aortic enlargement. On her pelvic examination, the patient has an irregular mass in her vulva consistent with melanoma Extremities are nonedematous and both femoral and pedal pulses are normal. Examination of the skin revealed no evidence of significant rashes, suspicious appearing nevi or other concerning lesions. Neurologically, the patient is awake and alert and the patient does not have any focal neurological deficit. Cranial nerves are essentially intact. - Labs CBC & Chem 7: 02/28/25 06:41 02/28/25 06:41 Labs: Abnormal Lab Results - Last 24 Hours (Table) 02/27/25 02/27/25 02/27/25 Range/Units 16:24 17:11 20:36 WBC (4.50-10.00) 10*3/uL RBC (4.10-5.20) 10*6/uL Hgb (12.0-15.0) g/dL Hct (37.2-46.3) % MCH (27.0-32.0) pg MCHC (32.0-37.0) g/dL Plt Count (140-440) 10*3/uL MPV (9.5-12.2) fL Immature Gran # (0.00-0.04) 10*3/uL Neutrophils # (1.80-7.70) 10*3/uL Eosinophils # (0.04-0.35) 10*3/uL Sodium (137-145) mmol/L Chloride (98-107) mmol/L Carbon Dioxide (22-30) mmol/L BUN (7-17) mg/dL Creatinine (0.52-1.04) mg/dL POC Glucose (mg/dL) 114 H 128 H (70-110) mg/dL Urine Appearance Cloudy H (Clear) Urine Protein 1+ H (Negative) Urine Blood Large H (Negative) Ur Leukocyte Esterase Large H (Negative) Urine RBC >182 H (0-5) /hpf Urine WBC >182 H (0-5) /hpf Urine WBC Clumps Many H (None) /hpf Urine Bacteria Occasional H (None) /hpf Crossmatch 02/28/25 02/28/25 02/28/25 Range/Units 02:00 05:52 06:41 WBC 19.63 H (4.50-10.00) 10*3/uL RBC 2.63 L (4.10-5.20) 10*6/uL Hgb 6.6 L* (12.0-15.0) g/dL Hct 21.2 L (37.2-46.3) % MCH 25.1 L (27.0-32.0) pg MCHC 31.1 L (32.0-37.0) g/dL Plt Count 529 H (140-440) 10*3/uL MPV 9.2 L (9.5-12.2) fL Immature Gran # 0.64 H (0.00-0.04) 10*3/uL Neutrophils # 16.72 H (1.80-7.70) 10*3/uL Eosinophils # 0.39 H (0.04-0.35) 10*3/uL Sodium (137-145) mmol/L Chloride (98-107) mmol/L Carbon Dioxide (22-30) mmol/L BUN (7-17) mg/dL Creatinine (0.52-1.04) mg/dL POC Glucose (mg/dL) 161 H 125 H (70-110) mg/dL Urine Appearance (Clear) Urine Protein (Negative) Urine Blood (Negative) Ur Leukocyte Esterase (Negative) Urine RBC (0-5) /hpf Urine WBC (0-5) /hpf Urine WBC Clumps (None) /hpf Urine Bacteria (None) /hpf Crossmatch 02/28/25 02/28/25 02/28/25 Range/Units 06:41 09:18 11:24 WBC (4.50-10.00) 10*3/uL RBC (4.10-5.20) 10*6/uL Hgb (12.0-15.0) g/dL Hct (37.2-46.3) % MCH (27.0-32.0) pg MCHC (32.0-37.0) g/dL Plt Count (140-440) 10*3/uL MPV (9.5-12.2) fL Immature Gran # (0.00-0.04) 10*3/uL Neutrophils # (1.80-7.70) 10*3/uL Eosinophils # (0.04-0.35) 10*3/uL Sodium 124 L (137-145) mmol/L Chloride 94 L (98-107) mmol/L Carbon Dioxide 20 L (22-30) mmol/L BUN 89 H (7-17) mg/dL Creatinine 1.82 H (0.52-1.04) mg/dL POC Glucose (mg/dL) 139 H (70-110) mg/dL Urine Appearance (Clear) Urine Protein (Negative) Urine Blood (Negative) Ur Leukocyte Esterase (Negative) Urine RBC (0-5) /hpf Urine WBC (0-5) /hpf Urine WBC Clumps (None) /hpf Urine Bacteria (None) /hpf Crossmatch See Detail Assessment and Plan Plan: Acute sepsis, likely secondary underlying urine tract infection. Urine cultures positive for Klebsiella pneumoniae and the patient remains on IV Rocephin. Hemodynamically stable on no pressors Acute leukocytosis, secondary to above, white cell count remains elevated Acute kidney injury, improving and today's creatinine is higher compared to yes terday. Acute hyponatremia likely secondary acute kidney injury and sepsis. Sodium levels dropped again and nephrology on the case Acute on chronic anemia with a drop in hemoglobin down to 6.6 Morbid obesity with a BMI of 48.5 Malignant melanoma with metastatic disease to the liver and lymph nodes, received 3 cycles of Opdualag thus far. The patient has a pelvic mass/vaginal mass consistent with melanoma. Metabolic acidosis secondary to above, essentially anion gap metabolic acidosis and the patient is currently on oral bicarb. Serum bicarb is improving and the patient remains on oral bicarbonate replacement. Urinary tract infection secondary to gram-negative bacilli, cultures are positive for Proteus mirabilis Paroxysmal A-fib, currently on anticoagulation with Eliquis. Cardiac rhythm is sinus. Iron deficiency anemia, currently on IV iron Diabetes mellitus type 2, currently on Lantus insulin. History of UTIs History of hypertension Hyperlipidemia Previous fracture of the right lower extremity with difficulty with mobility Morbid obesity BMI 47 Plan: Patient currently on room air oxygen Hemodynamically stable on no pressors Samsca per nephrology Transfused with a unit of packed RBC Lasix to be given posttransfusion Sodium levels are still low, will be managed by nephrology. Renal function is to be further monitored Monitor the white cell count Oral bicarb IV Rocephin No pressors for now Continue anticoagulation with Eliquis Will move the patient out of the intensive care unit. Involve physical therapy. Increase mobility
[2025-02-28 16:52] LABS: Glucose,Whole Blood 102 mg/dL (70-110)
--- NOTE | 2025-02-28 18:58 | P.PN ---
Subjective Patient is a 55-year-old female with a past medical history of hypertension, hyperlipidemia, diabetes type 2 insulin-dependent, metastatic malignant melanoma with mets to liver and lymph nodes, depression, prior history of smoking, GERD and diabetic peripheral neuropathy and history of SVT, prior history of smoking. Patient presents to ER from Dr. Botello's office due to abnormal labs. Patient was also having generalized weakness. She was in the office for her third infusion. She had blood workup done yesterday which showed multiple abnormalities and was recommended to go to ER. She is also having generalized body pains. Also worsening shortness of breath. No chest pain. She does have decreased appetite and not eating well., No nausea no episodes of vomiting. EKG on admission showed sinus rhythm with heart rate 62 Chest x-ray showed no focal consolidation. Elevation of the right hemidiaphragm which is increased from prior exam. Consider sniff test to evaluate for diaphragmatic paralysis. Laboratory data showed WBC 26.7 hemoglobin 8.8 and platelets 634 MCV 75.3 Sodium 118, potassium 4.1 chloride 93 bicarb is 10 BUN 52 and creatinine 2.96, blood sugar 103 lactic acid 1.1 phosphorus 5.8 alk phos 241 proBNP 2350 lipase 441 Urinalysis showed light yellow turbid with large blood nitrite positive leukocyte esterase large elevated RBCs and WBCs. Influenza A B RSV and COVID-19 PCR not detected. 02/22/2025 Patient is in the MICU. Patient is requiring pressor support with Levophed. Resting in the bed. Awake alert and oriented. Currently on room air. Afebrile overnight. Denied any complaints of nausea vomiting abdominal pain or diarrhea. Lab data showed WBC trending down to 21.7 hemoglobin 8.2 and platelets 0.91 sodium improved to 121 potassium 4.5 chloride 101 bicarb is 6 BUN 54 and creatinine 2.72. Antibiotics were changed to cefazolin 2 g Q12. Nephrology and ID is on board. 02/24/2024 Patient is needing intensive care unit. Awake alert and oriented x 3. Currently on room air. Patient is off pressor support since 5 AM this morning. Sodium level improved to 127 today. Patient is on antibiotics in the form of cefepime. Urine culture showed Proteus Mirabella's. Laboratory data showed WBC 17.7 hemoglobin 7.4 and platelets 505 sodium 123 potassium 3.6 chloride 98 bicarb is 15 BUN 44 and creatinine 1.98, calcium 8.3. 02/24/2025 Patient is in MICU. Ureteric and ovarian x 3. Currently on room air. No c omplaints of chest pain or shortness of breath. Sodium level improved to 127 today. Patient is also been antibiotics for urinary tract infection with ceftriaxone. Urine culture growing Proteus mirabilis. Patient has been afebrile. Patient was given urea 15 g p.o. twice daily. Continued on insulin regimen. Laboratory test showed WBC 16.1 hemoglobin 7.3 and platelets 543 sodium 127 potassium 3.8 chloride 98 bicarb is 15 BUN 4020 creatinine 1.35 and blood sugar 82 magnesium 1.7 albumin 2.4. 02/25/2025 Patient is resting in the bed. Awake alert and oriented. No complaints of chest pain or shortness of breath. Tolerating oral diet. Patient is off IV fluids. He was started on urea and patient was also given Samsca. Sodium level is 126 today. Other laboratory data showed sodium 126 potassium 3.9 chloride 97 bicarb is 19 BUN 56 and creatinine 1.06 and blood sugar 125. Magnesium 1.9. Patient is getting ceftriaxone for urinary tract infection. 02/26 Patient lying in bed comfortable no chest pain or dyspnea No vomiting, she has average appetite No abdominal abdominal pain Patient has ongoing dysuria. 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 As per patient she was getting chemotherapy since November 2024. Her oncologist as outpatient is Dr. Botello. She had 3 cycles of chemotherapy so far. Her Cozaar Aldactone and metformin remain on hold 02/27 Clinically looks the same, awake and alert Main complaint is dysuria which is going on for 1.5 months which looks chronic related to her vaginal mass She is following up with hematology/oncology. Also she follow-up with the surgeon at [facility] with no plans for surgical intervention. Also patient confirms to me that she follow-up with director of the biophysics facility in [place]. She has right foot boot on. She says she has fracture on November 26 and she is going to follow-up with her orthopedic in 1 to 2 weeks after discharge. No other new complaints Vital stable and afebrile. 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 Both of these lesions has progressed today She is developing more signs of infection with hypotension, leukocytosis went up to 19.6. Creatinine went up to 1.8, systolic blood pressure dropped from 140s down to 100 but slightly less. Patient thought secondary to have urinary tract infection and she is on ceftriaxone 2 g. Diflucan with loading dose added today. No respiratory symptoms no abdominal pain or diarrhea. No rash. No other source of infection She is also on Cardizem 120 and metoprolol 50 mg for A-fib. Also she is on Eliquis 2.5 mg. Hemoglobin dropped today to 6.6. With no evidence of bleeding. She is getting unit of blood transfusion. Posttransfusion Lasix was held because of borderline low blood pressure. After the blood pressure improved. Also she has CT of the abdomen and pelvis showing generalized lymphadenopathy and around the aorta and retrocaval as well as along the iliac chain Most likely related to her metastatic disease. There is evidence also of hepatic metastasis, hematology/oncology team on the case. Patient was informed with some of the CT findings as above Active Medications Generic Name Dose Route Start Last Admin Trade Name Freq PRN Reason Stop Dose Admin Acetaminophen 650 mg 02/21/25 15:32 Acetaminophen Tab 325 Mg Tab PO Q6HR PRN Mild Pain or Fever > 100.5 Apixaban 2.5 mg 02/21/25 21:00 02/28/25 08:35 Apixaban 2.5 Mg Tablet PO 2.5 mg BID [facility] Administration Protocol Atorvastatin Calcium 20 mg 02/21/25 21:00 02/27/25 20:15 Atorvastatin 20 Mg Tab PO 20 mg HS [facility] Administration Bupropion HCl 150 mg 02/22/25 09:00 02/28/25 08:36 Bupropion Xl 150 Mg Tab.Er.24h PO 150 mg DAILY [facility] Administration Diltiazem HCl 120 mg 02/21/25 21:00 02/27/25 20:15 Diltiazem Cd 120 Mg Cap.Er.24h PO 120 mg HS [facility] Administration Fenofibrate 160 mg 02/22/25 09:00 02/28/25 08:35 Fenofibrate 160 Mg Tab PO 160 mg DAILY [facility] Administration Fluconazole 100 mg 02/28/25 09:00 02/28/25 08:35 Fluconazole 100 Mg Tab PO 100 mg DAILY [facility] Administration Protocol Gabapentin 600 mg 02/21/25 21:00 02/28/25 08:34 Gabapentin 300 Mg Cap PO 600 mg BID [facility] Administration Hydromorphone HCl 0.5 mg 02/21/25 15:32 02/28/25 03:07 Hydromorphone 0.5 Mg/0.5 Ml Syringe IVP 0.5 mg Q3HR PRN Administration Moderate Pain (Scale 4 to 6) Hydromorphone HCl 1 mg 02/21/25 18:08 02/28/25 08:31 Hydromorphone 2 Mg/Ml 1 Ml Syringe IVP 1 mg Q3HR PRN Administration Severe Pain (Scale 7 to 10) Ceftriaxone Sodium 2 gm/ 50 mls @ 100 mls/hr 02/25/25 09:00 02/28/25 08:31 Dextrose/Water IVPB 100 mls/hr Q24HR [facility] Administration Protocol Metoclopramide HCl 5 mg 02/26/25 17:05 02/28/25 03:08 Metoclopramide 5 Mg/Ml 2 Ml Vial IVP 5 mg Q8HR PRN Administration Nausea And Vomiting Metoprolol Succinate 50 mg 02/21/25 21:00 02/27/25 20:15 Metoprolol Succinate (Er) 50 Mg Tab.Er.24h PO 50 mg HS [facility] Administration Miscellaneous Information 1 each 02/22/25 15:48 Potassium Replacement Protocol 1 Each Misc MISCELLANE DAILY PRN Per Protocol Protocol Naloxone HCl 0.2 mg 02/21/25 15:32 Naloxone 0.4 Mg/Ml 1 Ml Vial IV Q2M PRN Opioid Reversal Non-Formulary Medication 50 units 02/26/25 12:30 02/28/25 07:05 Insulin Glargine/Lixisenatide [Soliqua 100 Unit-33 Mcg/Ml Pen] SQ 50 units [id number] [facility] Administration Nystatin 1 applic 02/21/25 15:38 Nystatin 100,000 Unit/Gm Powd 15 Gm TOPICAL TID PRN Skin Irritation Protocol Ondansetron HCl 4 mg 02/21/25 15:32 02/27/25 20:21 Ondansetron 4 Mg/2 Ml Vial IVP 4 mg Q8HR PRN Administration Nausea And Vomiting Ondansetron HCl 4 mg 02/22/25 09:00 02/28/25 08:35 Ondansetron Odt 4 Mg Tab PO 4 mg DAILY [facility] Administration Pantoprazole Sodium 40 mg 02/22/25 09:00 02/28/25 08:35 Pantoprazole 40 Mg/10 Ml Vial IV 40 mg DAILY [facility] Administration Petrolatum 1 applic 02/25/25 09:04 Zinc Oxide Paste (Z-Guard) 1 Applic TOPICAL Q2HR PRN Wound Healing Protocol Sertraline HCl 50 mg 02/21/25 21:00 02/27/25 20:15 Sertraline 50 Mg Tab PO 50 mg HS [facility] Administration Sodium Bicarbonate 650 mg 02/24/25 09:45 02/28/25 08:34 Sodium Bicarbonate Tab 650 Mg Tab PO 650 mg BID [facility] Administration Urea 15 gm 02/24/25 09:45 02/28/25 08:37 Urea 15 Gm Powd.Pack PO 15 gm BID [facility] Administration Objective - Vital Signs Vital signs: Vital Signs Temp 97.8 F 02/28/25 11:22 Pulse 71 02/28/25 11:22 Resp 18 02/28/25 11:22 BP 96/56 02/28/25 11:22 Pulse Ox 99 02/28/25 11:22 FiO2 Intake & Output 02/27/25 02/28/25 02/28/25 18:59 06:59 18:59 Intake Total 1518 1945 0 Output Total 200 400 Balance 1318 1545 0 Weight 142.5 kg 142.5 kg Intake: Intake, IV Titration 950 825 Amount Lactated Ringers 1,000 ml 900 825 @ 75 mls/hr IV .[id number] [facility] Rx#:[id number] cefTRIAXone 2 gm In 50 Dextrose 5% in Water 50 ml @ 100 mls/hr IVPB Q24HR [facility] Rx#:[id number] Oral 568 1120 Blood Product 0 Unit 0 Output: Urine 200 Urine/Stool Mix 400 Other: Voiding Method External Catheter Bedside Commode Bedside Commode # Voids 1 2 # Bowel Movements 1 1 - Exam -GENERAL: The patient is alert and oriented x3, not in any acute distress. Well developed, well nourished. Obese HEENT: Pupils are round and equally reacting to light. EOMI. No scleral icterus. No conjunctival pallor. Normocephalic, atraumatic. No pharyngeal erythema. No thyromegaly. CARDIOVASCULAR: S1 and S2 present. No murmurs, rubs, or gallops. PULMONARY: Chest is clear to auscultation, no wheezing , no crackles. ABDOMEN: Soft, nontender, nondistended, normoactive bowel sounds. No palpable organomegaly. MUSCULOSKELETAL: No joint swelling or deformity. EXTREMITIES: No cyanosis, clubbing, or pedal edema. NEUROLOGICAL: Gross neurological examination did not reveal any focal deficits. SKIN: No rashes. no petechiae. - Labs CBC & Chem 7: 02/28/25 06:41 02/28/25 06:41 Labs: Abnormal Lab Results - Last 24 Hours (Table) 02/27/25 02/27/25 02/27/25 Range/Units 11:51 16:24 17:11 WBC (4.50-10.00) 10*3/uL RBC (4.10-5.20) 10*6/uL Hgb (12.0-15.0) g/dL Hct (37.2-46.3) % MCH (27.0-32.0) pg MCHC (32.0-37.0) g/dL Plt Count (140-440) 10*3/uL MPV (9.5-12.2) fL Immature Gran # (0.00-0.04) 10*3/uL Neutrophils # (1.80-7.70) 10*3/uL Eosinophils # (0.04-0.35) 10*3/uL Sodium (137-145) mmol/L Chloride (98-107) mmol/L Carbon Dioxide (22-30) mmol/L BUN (7-17) mg/dL Creatinine (0.52-1.04) mg/dL POC Glucose (mg/dL) 159 H 114 H (70-110) mg/dL Urine Appearance Cloudy H (Clear) Urine Protein 1+ H (Negative) Urine Blood Large H (Negative) Ur Leukocyte Esterase Large H (Negative) Urine RBC >182 H (0-5) /hpf Urine WBC >182 H (0-5) /hpf Urine WBC Clumps Many H (None) /hpf Urine Bacteria Occasional H (None) /hpf Crossmatch 02/27/25 02/28/25 02/28/25 Range/Units 20:36 02:00 05:52 WBC (4.50-10.00) 10*3/uL RBC (4.10-5.20) 10*6/uL Hgb (12.0-15.0) g/dL Hct (37.2-46.3) % MCH (27.0-32.0) pg MCHC (32.0-37.0) g/dL Plt Count (140-440) 10*3/uL MPV (9.5-12.2) fL Immature Gran # (0.00-0.04) 10*3/uL Neutrophils # (1.80-7.70) 10*3/uL Eosinophils # (0.04-0.35) 10*3/uL Sodium (137-145) mmol/L Chloride (98-107) mmol/L Carbon Dioxide (22-30) mmol/L BUN (7-17) mg/dL Creatinine (0.52-1.04) mg/dL POC Glucose (mg/dL) 128 H 161 H 125 H (70-110) mg/dL Urine Appearance (Clear) Urine Protein (Negative) Urine Blood (Negative) Ur Leukocyte Esterase (Negative) Urine RBC (0-5) /hpf Urine WBC (0-5) /hpf Urine WBC Clumps (None) /hpf Urine Bacteria (None) /hpf Crossmatch 02/28/25 02/28/25 02/28/25 Range/Units 06:41 06:41 09:18 WBC 19.63 H (4.50-10.00) 10*3/uL RBC 2.63 L (4.10-5.20) 10*6/uL Hgb 6.6 L* (12.0-15.0) g/dL Hct 21.2 L (37.2-46.3) % MCH 25.1 L (27.0-32.0) pg MCHC 31.1 L (32.0-37.0) g/dL Plt Count 529 H (140-440) 10*3/uL MPV 9.2 L (9.5-12.2) fL Immature Gran # 0.64 H (0.00-0.04) 10*3/uL Neutrophils # 16.72 H (1.80-7.70) 10*3/uL Eosinophils # 0.39 H (0.04-0.35) 10*3/uL Sodium 124 L (137-145) mmol/L Chloride 94 L (98-107) mmol/L Carbon Dioxide 20 L (22-30) mmol/L BUN 89 H (7-17) mg/dL Creatinine 1.82 H (0.52-1.04) mg/dL POC Glucose (mg/dL) (70-110) mg/dL Urine Appearance (Clear) Urine Protein (Negative) Urine Blood (Negative) Ur Leukocyte Esterase (Negative) Urine RBC (0-5) /hpf Urine WBC (0-5) /hpf Urine WBC Clumps (None) /hpf Urine Bacteria (None) /hpf Crossmatch See Detail 02/28/25 Range/Units 11:24 WBC (4.50-10.00) 10*3/uL RBC (4.10-5.20) 10*6/uL Hgb (12.0-15.0) g/dL Hct (37.2-46.3) % MCH (27.0-32.0) pg MCHC (32.0-37.0) g/dL Plt Count (140-440) 10*3/uL MPV (9.5-12.2) fL Immature Gran # (0.00-0.04) 10*3/uL Neutrophils # (1.80-7.70) 10*3/uL Eosinophils # (0.04-0.35) 10*3/uL Sodium (137-145) mmol/L Chloride (98-107) mmol/L Carbon Dioxide (22-30) mmol/L BUN (7-17) mg/dL Creatinine (0.52-1.04) mg/dL POC Glucose (mg/dL) 139 H (70-110) mg/dL Urine Appearance (Clear) Urine Protein (Negative) Urine Blood (Negative) Ur Leukocyte Esterase (Negative) Urine RBC (0-5) /hpf Urine WBC (0-5) /hpf Urine WBC Clumps (None) /hpf Urine Bacteria (None) /hpf Crossmatch Assessment and Plan Assessment: Severe hyponatremia with sodium level 118 on admission-hypoosmolar hyponatremia due to decreased oral intake and LISSETTE. Acute kidney injury. Possible ATN. SIADH cannot be excluded due to underlying malignancy. Creatinine 2.96 on admission baseline 1.0 Non-anion gap metabolic acidosis Acute urinary tract infection with Proteus Mirabella's. Mild pancreatitis with lipase level 441 Malignant melanoma with mets to liver and lymph nodes, generalized intra- abdominal lymphadenopathy and hepatic metastasis. On chemoinfusion and is on follow-up with oncology. Diabetes type 2 insulin-dependent Diabetic peripheral neuropathy History of SVT Paroxysmal atrial fibrillation Osteoarthritis Hypertension Hyperlipidemia GERD Depression Prior history of smoking Microcytic anemia rule out iron deficiency. 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 Patient received blood transfusion and IV fluid Monitor creatinine Nephrology team consult Critical care team consult Hematology/oncology team consult Continue holding metformin, Aldactone and Cozaar Hematology/oncology team on the case GI prophylaxis: Protonix DVT prophylaxis: Marilu Physical therapist recommended home versus subacute rehab Prognosis is guarded
[2025-02-28 20:05] LABS: Glucose,Whole Blood 86 mg/dL (70-110)
[2025-03-01 02:23] LABS: Glucose,Whole Blood 78 mg/dL (70-110)
[2025-03-01 06:13] LABS: Glucose,Whole Blood 85 mg/dL (70-110)
[2025-03-01 08:31] LABS: Basophils # (A) 0.04 10*3/uL (0.00-0.10); Basophils % (A) 0.2 %; Eosinophils # (A) 0.23 10*3/uL (0.04-0.35); Eosinophils % (A) 1.1 %; HCT 22.9 % (37.2-46.3); HGB 7.4 g/dL (12.0-15.0); Lymphocytes # (A) 0.93 10*3/uL (0.90-5.00); Lymphocytes % (A) 4.3 %; MCH 26.4 pg (27.0-32.0); MCHC 32.3 g/dL (32.0-37.0); MCV 81.8 fL (80.0-97.0); Mean Platelet Volume 9.5 fL (9.5-12.2); Monocytes # (A) 0.65 10*3/uL (0.20-1.00); Neutrophils # (A) 18.78 10*3/uL (1.80-7.70); Neutrophils % (A) 87.5 %; Platelet Count 552 10*3/uL (140-440); RDW 17.8 % (11.5-14.5); WBC 21.46 10*3/uL (4.50-10.00)
[2025-03-01 09:01] LABS: African American GFR (CKD) 30 (>60 ml/min/1.73 sqM); Anion Gap 8 mmol/L; Calcium 8.8 mg/dL (8.4-10.2); Carbon Dioxide 21 mmol/L (22-30); Chloride 95 mmol/L (98-107); Glucose 59 mg/dL (74-99); Magnesium 1.8 mg/dL (1.6-2.3); Non-African American GFR(CKD) 26 (>60 ml/min/1.73 sqM); Potassium 4.4 mmol/L (3.5-5.1); Sodium 124 mmol/L (137-145)
[2025-03-01 09:18] LABS: Blood Urea Nitrogen 107 mg/dL (7-17)
[2025-03-01] MEDS: SODIUM CHLORIDE 0.9% 500 ML 500 ML IV ONE (09:50)
[2025-03-01 11:14] LABS: Glucose,Whole Blood 151 mg/dL (70-110)
--- NOTE | 2025-03-01 11:47 | P.PN ---
Subjective Patient is seen for follow-up for acute kidney injury and hyponatremia. Renal function has been worsening over the last few days. Patient reports poor oral intake. Blood pressure was low today with systolic in the 70s and 80s. She did receive a fluid bolus of 500 cc of normal saline. Serum creatinine increased to 2.0 today and serum sodium was 124 today. Objective - Vital Signs Vital signs: Vital Signs Temp 97.6 F 03/01/25 11:34 Pulse 72 03/01/25 11:34 Resp 18 03/01/25 11:34 BP 119/67 03/01/25 11:00 Pulse Ox 98 03/01/25 11:34 FiO2 Intake & Output 02/28/25 03/01/25 03/01/25 18:59 06:59 18:59 Intake Total 895 120 200 Output Total 300 Balance 595 120 200 Weight 142.5 kg 142.5 kg Intake: Intake, IV Titration 275 Amount Lactated Ringers 1,000 ml 225 @ 75 mls/hr IV .[id number] [facility] Rx#:[id number] cefTRIAXone 2 gm In 50 Dextrose 5% in Water 50 ml @ 100 mls/hr IVPB Q24HR [facility] Rx#:[id number] Oral 120 200 Blood Product 620 Rc As-1 Unit 310 [id number] Output: Urine 300 Other: Voiding Method Bedside Commode Bedside Commode # Voids 2 1 # Bowel Movements 1 - Exam Patient is awake, comfortable, no acute distress. Examination of the heart S1 and S2 Examination of the lungs bilateral breath sounds are heard Abdomen is soft obese Examination of lower extremities shows 1+ edema bilaterally - Labs CBC & Chem 7: 03/01/25 07:17 03/01/25 07:17 Labs: Abnormal Lab Results - Last 24 Hours (Table) 02/28/25 03/01/25 03/01/25 Range/Units 09:18 07:17 07:17 WBC 21.46 H (4.50-10.00) 10*3/uL RBC 2.80 L (4.10-5.20) 10*6/uL Hgb 7.4 L (12.0-15.0) g/dL Hct 22.9 L (37.2-46.3) % MCH 26.4 L (27.0-32.0) pg Plt Count 552 H (140-440) 10*3/uL Immature Gran # 0.83 H (0.00-0.04) 10*3/uL Neutrophils # 18.78 H (1.80-7.70) 10*3/uL Sodium 124 L (137-145) mmol/L Chloride 95 L (98-107) mmol/L Carbon Dioxide 21 L (22-30) mmol/L BUN 107 H* (7-17) mg/dL Creatinine 2.08 H (0.52-1.04) mg/dL Glucose 59 L (74-99) mg/dL POC Glucose (mg/dL) (70-110) mg/dL Crossmatch See Detail 03/01/25 Range/Units 11:12 WBC (4.50-10.00) 10*3/uL RBC (4.10-5.20) 10*6/uL Hgb (12.0-15.0) g/dL Hct (37.2-46.3) % MCH (27.0-32.0) pg Plt Count (140-440) 10*3/uL Immature Gran # (0.00-0.04) 10*3/uL Neutrophils # (1.80-7.70) 10*3/uL Sodium (137-145) mmol/L Chloride (98-107) mmol/L Carbon Dioxide (22-30) mmol/L BUN (7-17) mg/dL Creatinine (0.52-1.04) mg/dL Glucose (74-99) mg/dL POC Glucose (mg/dL) 151 H (70-110) mg/dL Crossmatch Microbiology - Last 24 Hours (Table) 02/27/25 17:11 Urine Culture - Final Urine,Voided 02/27/25 14:09 Blood Culture - Preliminary Blood Assessment and Plan Assessment: 1. 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 Urine osmolality 252. Sodium 124 this morning. Cortisol level high. TSH normal. Urine osmolality 252. 2. Malignant melanoma with metastatic disease to liver and lymph nodes. 3. Acute kidney injury secondary to ATN secondary to severe sepsis. Baseline creatinine near 1 from December 2024. Creatinine 2.96 on admission and improved to 1.06 - now worsening again due to acute blood loss anemia. 4. UTI on antibiotics. Urine culture positive for Proteus. 5. Metabolic acidosis secondary to acute kidney injury and IV fluids. Was also on metformin. On oral bicarb. 6. Diabetes mellitus. 7. Anemia. Iron deficiency noted. s/p IV iron. Having vaginal bleeding. Hemoglobin 7.4 today. 8. Mild volume overload. Plan: Repeat sodium this afternoon May need to discontinue urea if BUN continues to increase Add midodrine Continue with oral sodium bicarb
--- NOTE | 2025-03-01 12:00 | P.PN ---
Subjective Patient is a 55-year-old female with a past medical history of hypertension, hyperlipidemia, diabetes type 2 insulin-dependent, metastatic malignant melanoma with mets to liver and lymph nodes, depression, prior history of smoking, GERD and diabetic peripheral neuropathy and history of SVT, prior history of smoking. Patient presents to ER from Dr. Botello's office due to abnormal labs. Patient was also having generalized weakness. She was in the office for her third infusion. She had blood workup done yesterday which showed multiple abnormalities and was recommended to go to ER. She is also having generalized body pains. Also worsening shortness of breath. No chest pain. She does have decreased appetite and not eating well., No nausea no episodes of vomiting. EKG on admission showed sinus rhythm with heart rate 62 Chest x-ray showed no focal consolidation. Elevation of the right hemidiaphragm which is increased from prior exam. Consider sniff test to evaluate for diaphragmatic paralysis. Laboratory data showed WBC 26.7 hemoglobin 8.8 and platelets 634 MCV 75.3 Sodium 118, potassium 4.1 chloride 93 bicarb is 10 BUN 52 and creatinine 2.96, blood sugar 103 lactic acid 1.1 phosphorus 5.8 alk phos 241 proBNP 2350 lipase 441 Urinalysis showed light yellow turbid with large blood nitrite positive leukocyte esterase large elevated RBCs and WBCs. Influenza A B RSV and COVID-19 PCR not detected. 02/22/2025 Patient is in the MICU. Patient is requiring pressor support with Levophed. Resting in the bed. Awake alert and oriented. Currently on room air. Afebrile overnight. Denied any complaints of nausea vomiting abdominal pain or diarrhea. Lab data showed WBC trending down to 21.7 hemoglobin 8.2 and platelets 0.91 sodium improved to 121 potassium 4.5 chloride 101 bicarb is 6 BUN 54 and creatinine 2.72. Antibiotics were changed to cefazolin 2 g Q12. Nephrology and ID is on board. 02/24/2024 Patient is needing intensive care unit. Awake alert and oriented x 3. Currently on room air. Patient is off pressor support since 5 AM this morning. Sodium level improved to 127 today. Patient is on antibiotics in the form of cefepime. Urine culture showed Proteus Mirabella's. Laboratory data showed WBC 17.7 hemoglobin 7.4 and platelets 505 sodium 123 potassium 3.6 chloride 98 bicarb is 15 BUN 44 and creatinine 1.98, calcium 8.3. 02/24/2025 Patient is in MICU. Ureteric and ovarian x 3. Currently on room air. No c omplaints of chest pain or shortness of breath. Sodium level improved to 127 today. Patient is also been antibiotics for urinary tract infection with ceftriaxone. Urine culture growing Proteus mirabilis. Patient has been afebrile. Patient was given urea 15 g p.o. twice daily. Continued on insulin regimen. Laboratory test showed WBC 16.1 hemoglobin 7.3 and platelets 543 sodium 127 potassium 3.8 chloride 98 bicarb is 15 BUN 4020 creatinine 1.35 and blood sugar 82 magnesium 1.7 albumin 2.4. 02/25/2025 Patient is resting in the bed. Awake alert and oriented. No complaints of chest pain or shortness of breath. Tolerating oral diet. Patient is off IV fluids. He was started on urea and patient was also given Samsca. Sodium level is 126 today. Other laboratory data showed sodium 126 potassium 3.9 chloride 97 bicarb is 19 BUN 56 and creatinine 1.06 and blood sugar 125. Magnesium 1.9. Patient is getting ceftriaxone for urinary tract infection. 02/26 Patient lying in bed comfortable no chest pain or dyspnea No vomiting, she has average appetite No abdominal abdominal pain Patient has ongoing dysuria. 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 As per patient she was getting chemotherapy since November 2024. Her oncologist as outpatient is Dr. Botello. She had 3 cycles of chemotherapy so far. Her Cozaar Aldactone and metformin remain on hold 02/27 Clinically looks the same, awake and alert Main complaint is dysuria which is going on for 1.5 months which looks chronic related to her vaginal mass She is following up with hematology/oncology. Also she follow-up with the surgeon at [facility] with no plans for surgical intervention. Also patient confirms to me that she follow-up with operator in [place]. She has right foot boot on. She says she has fracture on November 26 and she is going to follow-up with her orthopedic in 1 to 2 weeks after discharge. No other new complaints Vital stable and afebrile. 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 Both of these lesions has progressed today She is developing more signs of infection with hypotension, leukocytosis went up to 19.6. Creatinine went up to 1.8, systolic blood pressure dropped from 140s down to 100 but slightly less. Patient thought secondary to have urinary tract infection and she is on ceftriaxone 2 g. Diflucan with loading dose added today. No respiratory symptoms no abdominal pain or diarrhea. No rash. No other source of infection She is also on Cardizem 120 and metoprolol 50 mg for A-fib. Also she is on Eliquis 2.5 mg. Hemoglobin dropped today to 6.6. With no evidence of bleeding. She is getting unit of blood transfusion. Posttransfusion Lasix was held because of borderline low blood pressure. After the blood pressure improved. Also she has CT of the abdomen and pelvis showing generalized lymphadenopathy and around the aorta and retrocaval as well as along the iliac chain Most likely related to her metastatic disease. There is evidence also of hepatic metastasis, hematology/oncology team on the case. Patient was informed with some of the CT findings as above 03/01 Patient is still feeling lethargic. She has large fullness with a bruise in the lower abdomen, she is morbidly obese and she has already pendulous abdomen, the area is standing in her. Possible bleeding. Hold Eliquis and check abdominal ultrasound She is s/p 1 unit of blood transfusion yesterday, hemoglobin went up 6.6 up to 7.4. She is also on ceftriaxone and Diflucan for suspected UTI She is a known case of malignant melanoma with evidence of metastasis to the abdominal lymphadenopathy and liver. Today at bedside throughout the encounter Active Medications Generic Name Dose Route Start Last Admin Trade Name Brooksq PRN Reason Stop Dose Admin Acetaminophen 650 mg 02/21/25 15:32 Acetaminophen Tab 325 Mg Tab PO Q6HR PRN Mild Pain or Fever > 100.5 Apixaban 2.5 mg 02/21/25 21:00 02/28/25 20:29 Apixaban 2.5 Mg Tablet PO 2.5 mg BID [facility] Administration Protocol Atorvastatin Calcium 20 mg 02/21/25 21:00 02/28/25 20:29 Atorvastatin 20 Mg Tab PO 20 mg HS [facility] Administration Bupropion HCl 150 mg 02/22/25 09:00 03/01/25 09:56 Bupropion Xl 150 Mg Tab.Er.24h PO 150 mg DAILY [facility] Administration Diltiazem HCl 120 mg 02/21/25 21:00 02/28/25 20:29 Diltiazem Cd 120 Mg Cap.Er.24h PO 120 mg HS [facility] Administration Fenofibrate 160 mg 02/22/25 09:00 03/01/25 09:55 Fenofibrate 160 Mg Tab PO 160 mg DAILY [facility] Administration Fluconazole 100 mg 02/28/25 09:00 03/01/25 09:55 Fluconazole 100 Mg Tab PO 100 mg DAILY [facility] Administration Protocol Gabapentin 600 mg 02/21/25 21:00 03/01/25 09:55 Gabapentin 300 Mg Cap PO 600 mg BID [facility] Administration Hydromorphone HCl 0.5 mg 02/21/25 15:32 03/01/25 04:34 Hydromorphone 0.5 Mg/0.5 Ml Syringe IVP 0.5 mg Q3HR PRN Administration Moderate Pain (Scale 4 to 6) Hydromorphone HCl 1 mg 02/21/25 18:08 02/28/25 08:31 Hydromorphone 2 Mg/Ml 1 Ml Syringe IVP 1 mg Q3HR PRN Administration Severe Pain (Scale 7 to 10) Ceftriaxone Sodium 2 gm/ 50 mls @ 100 mls/hr 02/25/25 09:00 03/01/25 11:14 Dextrose/Water IVPB 100 mls/hr Q24HR [facility] Administration Protocol Metoclopramide HCl 5 mg 02/26/25 17:05 02/28/25 03:08 Metoclopramide 5 Mg/Ml 2 Ml Vial IVP 5 mg Q8HR PRN Administration Nausea And Vomiting Metoprolol Succinate 50 mg 02/21/25 21:00 02/28/25 20:29 Metoprolol Succinate (Er) 50 Mg Tab.Er.24h PO 50 mg HS [facility] Administration Midodrine 5 mg 03/01/25 17:30 Midodrine 5 Mg Tab PO AC-BID [facility] Miscellaneous Information 1 each 02/22/25 15:48 Potassium Replacement Protocol 1 Each Misc MISCELLANE DAILY PRN Per Protocol Protocol Naloxone HCl 0.2 mg 02/21/25 15:32 Naloxone 0.4 Mg/Ml 1 Ml Vial IV Q2M PRN Opioid Reversal Non-Formulary Medication 50 units 02/26/25 12:30 03/01/25 06:35 Insulin Glargine/Lixisenatide [Soliqua 100 Unit-33 Mcg/Ml Pen] SQ 25 units AC-BRKFST L[facility] Administration Nystatin 1 applic 02/21/25 15:38 Nystatin 100,000 Unit/Gm Powd 15 Gm TOPICAL TID PRN Skin Irritation Protocol Ondansetron HCl 4 mg 02/21/25 15:32 03/01/25 08:48 Ondansetron 4 Mg/2 Ml Vial IVP 4 mg Q8HR PRN Administration Nausea And Vomiting Ondansetron HCl 4 mg 02/22/25 09:00 03/01/25 11:14 Ondansetron Odt 4 Mg Tab PO 4 mg DAILY [facility] Administration Pantoprazole Sodium 40 mg 02/22/25 09:00 03/01/25 09:55 Pantoprazole 40 Mg/10 Ml Vial IV 40 mg DAILY [facility] Administration Petrolatum 1 applic 02/25/25 09:04 Zinc Oxide Paste (Z-Guard) 1 Applic TOPICAL Q2HR PRN Wound Healing Protocol Sertraline HCl 50 mg 02/21/25 21:00 02/28/25 20:29 Sertraline 50 Mg Tab PO 50 mg HS [facility] Administration Sodium Bicarbonate 650 mg 02/24/25 09:45 03/01/25 09:55 Sodium Bicarbonate Tab 650 Mg Tab PO 650 mg BID [facility] Administration Urea 15 gm 02/24/25 09:45 03/01/25 09:56 Urea 15 Gm Powd.Pack PO 15 gm BID L[facility] Administration Objective - Vital Signs Vital signs: Vital Signs Temp 97.6 F 03/01/25 11:34 Pulse 72 03/01/25 11:34 Resp 18 03/01/25 11:34 BP 119/67 03/01/25 11:00 Pulse Ox 98 03/01/25 11:34 FiO2 Intake & Output 02/28/25 03/01/25 03/01/25 18:59 06:59 18:59 Intake Total 895 120 200 Output Total 300 Balance 595 120 200 Weight 142.5 kg 142.5 kg Intake: Intake, IV Titration 275 Amount Lactated Ringers 1,000 ml 225 @ 75 mls/hr IV .[id number] [facility] Rx#:[id number] cefTRIAXone 2 gm In 50 Dextrose 5% in Water 50 ml @ 100 mls/hr IVPB Q24HR [facility] Rx#:[id number] Oral 120 200 Blood Product 620 Rc As-1 Unit 310 [id number] Output: Urine 300 Other: Voiding Method Bedside Commode Bedside Commode # Voids 2 1 # Bowel Movements 1 - Exam -GENERAL: The patient is alert and oriented x3, not in any acute distress. Well developed, well nourished. Obese HEENT: Pupils are round and equally reacting to light. EOMI. No scleral icterus. No conjunctival pallor. Normocephalic, atraumatic. No pharyngeal erythema. No thyromegaly. CARDIOVASCULAR: S1 and S2 present. No murmurs, rubs, or gallops. PULMONARY: Chest is clear to auscultation, no wheezing , no crackles. ABDOMEN: Soft, nontender, nondistended, normoactive bowel sounds. No palpable organomegaly. MUSCULOSKELETAL: No joint swelling or deformity. EXTREMITIES: No cyanosis, clubbing, or pedal edema. NEUROLOGICAL: Gross neurological examination did not reveal any focal deficits. SKIN: No rashes. no petechiae. - Labs CBC & Chem 7: 03/01/25 07:17 03/01/25 07:17 Labs: Abnormal Lab Results - Last 24 Hours (Table) 02/28/25 03/01/25 03/01/25 Range/Units 09:18 07:17 07:17 WBC 21.46 H (4.50-10.00) 10*3/uL RBC 2.80 L (4.10-5.20) 10*6/uL Hgb 7.4 L (12.0-15.0) g/dL Hct 22.9 L (37.2-46.3) % MCH 26.4 L (27.0-32.0) pg Plt Count 552 H (140-440) 10*3/uL Immature Gran # 0.83 H (0.00-0.04) 10*3/uL Neutrophils # 18.78 H (1.80-7.70) 10*3/uL Sodium 124 L (137-145) mmol/L Chloride 95 L (98-107) mmol/L Carbon Dioxide 21 L (22-30) mmol/L BUN 107 H* (7-17) mg/dL Creatinine 2.08 H (0.52-1.04) mg/dL Glucose 59 L (74-99) mg/dL POC Glucose (mg/dL) (70-110) mg/dL Crossmatch See Detail 03/01/25 Range/Units 11:12 WBC (4.50-10.00) 10*3/uL RBC (4.10-5.20) 10*6/uL Hgb (12.0-15.0) g/dL Hct (37.2-46.3) % MCH (27.0-32.0) pg Plt Count (140-440) 10*3/uL Immature Gran # (0.00-0.04) 10*3/uL Neutrophils # (1.80-7.70) 10*3/uL Sodium (137-145) mmol/L Chloride (98-107) mmol/L Carbon Dioxide (22-30) mmol/L BUN (7-17) mg/dL Creatinine (0.52-1.04) mg/dL Glucose (74-99) mg/dL POC Glucose (mg/dL) 151 H (70-110) mg/dL Crossmatch Microbiology - Last 24 Hours (Table) 02/27/25 17:11 Urine Culture - Final Urine,Voided 02/27/25 14:09 Blood Culture - Preliminary Blood Assessment and Plan Assessment: Lower abdominal hematoma suspected with severe anemia required unit of blood transfusion on 03/01 Severe hyponatremia with sodium level 118 on admission-hypoosmolar hyponatremia due to decreased oral intake and LISSETTE. Acute kidney injury. Possible ATN. SIADH cannot be excluded due to underlying malignancy. Creatinine 2.96 on admission baseline 1.0 Non-anion gap metabolic acidosis Acute urinary tract infection with Proteus Mirabella's. Mild pancreatitis with lipase level 441 Malignant melanoma with mets to liver and lymph nodes, generalized intra- abdominal lymphadenopathy and hepatic metastasis. On chemoinfusion and is on follow-up with oncology. Diabetes type 2 insulin-dependent Diabetic peripheral neuropathy History of SVT Paroxysmal atrial fibrillation Osteoarthritis Hypertension Hyperlipidemia GERD Depression Prior history of smoking Microcytic anemia rule out iron deficiency. 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 Patient received blood transfusion and IV fluid Monitor creatinine Nephrology team consult Critical care team consult Hematology/oncology team consult Continue holding metformin, Aldactone and Cozaar Hematology/oncology team on the case GI prophylaxis: Protonix DVT prophylaxis: Eliquis, currently on hold Physical therapist recommended home versus subacute rehab Prognosis is guarded
[2025-03-01 12:56] LABS: Basophils # (A) 0.04 10*3/uL (0.00-0.10); Basophils % (A) 0.2 %; Eosinophils % (A) 0.4 %; HCT 22.7 % (37.2-46.3); HGB 7.2 g/dL (12.0-15.0); Lymphocytes # (A) 0.74 10*3/uL (0.90-5.00); MCH 25.7 pg (27.0-32.0); MCHC 31.7 g/dL (32.0-37.0); MCV 81.1 fL (80.0-97.0); Mean Platelet Volume 9.3 fL (9.5-12.2); Monocytes # (A) 0.57 10*3/uL (0.20-1.00); Monocytes % (A) 2.3 %; Neutrophils # (A) 22.12 10*3/uL (1.80-7.70); Neutrophils % (A) 90.3 %; Platelet Count 544 10*3/uL (140-440); RDW 17.4 % (11.5-14.5)
--- NOTE | 2025-03-01 13:13 | US ---
EXAMINATION TYPE: US abdomen limited DATE OF EXAM: 03/01/2025 COMPARISON: CT abdomen and pelvis 02/27/2025 CLINICAL INDICATION: Female, 55 years old with history of hematoma pelvic region; Pain, swelling and bruising at left front pelvic region TECHNIQUE: Multiple grayscale and color Doppler ultrasound images in the pelvic region the area of c oncern at site of bruising. FINDINGS/IMPRESSION: Multiple images taken of area of concern. Edematous soft tissue channels seen. Small fluid collection seen = 5.3 x 5.1 x 1.3 cm. This appears hypoechoic without internal color fl ow. Probable hematoma in the setting of reported bruising. [facility], , 03/01/2025 1:11 PM
--- NOTE | 2025-03-01 14:00 | P.PN ---
Subjective Progress Note Date: 03/01/25 This is a pleasant 55-year-old female patient with a known history of diabetes melitis, type II, hypertension, hyperlipidemia, former smoker, peripheral neuropathy, SVT. She also has a history of metastatic malignant melanoma with mets to the liver and lymph nodes. She was in Dr. Botello's office yesterday for her third infusion of chemotherapy and was found to have abnormal labs and the patient also had generalized weakness. She was referred to the ER for the same. She was found to have a sodium of 118 and was initiated on 3% saline and admitted to the intensive care unit. She is seen today in consultation. She is awake and alert. Quite weak. Maintaining good O2 saturations up to 100% on dahlia m air. She briefly required norepinephrine for hypotension. The most recent sodium was 122. 3% saline is on pause. She has a sodium bicarbonate drip at 75 mL/h. Anticoagulated with Eliquis. White count 21.7. Hemoglobin 8.2. Platelets 591. Potassium 4.5. Bicarb 6. BUN 54. Creatinine 2.72. Glucose 65. Chest x-ray shows no focal consolidation. Some elevation in the right hemidiaphragm. The patient is seen today February 23, 2025 in follow-up in the intensive care unit. She is currently sitting up in bed. Awake and alert in no acute distress. Maintaining O2 saturations in the 90s on room air. She has been off norepinephrine since 5 AM this morning. She is receiving 0.45 normal saline with 2 A of bicarb at 75 mL/h. Her current sodium is 123. Potassium 3.6. Bicarb 15. BUN 44. Creatinine 1.98. Glucose 82. White count 17.7. Hemoglobin 7.4. Platelets 505. She is anticoagulated with Eliquis. She remains on cefazolin. On 02/24/2025, the patient is doing well the patient is recovering from acute septic event related to an underlying urinary tract infection. The patient had an acute kidney injury, she was hypotensive and she was also hyponatremic. The patient was taken off the hypertonic saline solution. Sodium level is gradually improving is currently up to 127 from a baseline of 118. LISSETTE is also improving and the creatinine is down to 1.3. The patient is awake and alert and communicating. She remains on IV Rocephin. She was found to have iron deficien cy anemia and the patient was given IV iron. On her blood work, the patient continues to have a component of an anion gap metabolic acidosis. The patient was started on oral bicarb. Serum bicarbonate 15, sodium levels at 127 with a potassium level of 3.9. Chloride is 99, WBC count 16.1 with a hemoglobin 7.3 and a platelet count of 543. The patient otherwise remains on long-term anticoagulation with Eliquis. The patient is known to have metastatic melanoma, treated with immunotherapy in outpatient basis. Patient is also on Lantus insulin 50 units and sliding scale coverage. She is diabetic. She has hypertension hyperlipidemia and peripheral neuropathy. Anticoagulation was given for paroxysmal atrial fibrillation. On 02/25/2025, the patient has no specific complaints. Doing well. Awake and alert send the patient is currently on room air oxygen. Blood work from today shows a sodium level of 126, serum bicarbonate 19, BUN 56 with a creatinine of 1.06. The patient had a white cell count from yesterday that was down to 16.1 and a hemoglobin of 7.3. Nephrology on the case regarding his ongoing hyponatremia. The patient remains on IV Rocephin regarding a Proteus mirabilis urinary tract infection. She is afebrile and she is hemodynamically stable. The patient will be given a dose of Samsca by nephrology. Remains on oral bicarb. Remains on IV iron. She remains on anticoagulation regarding paroxysmal atrial fibrillation. She is diabetic and she is known to have hy pertension hyperlipidemia and peripheral neuropathy. Remains on Lantus insulin 50 units daily. On 02/26/2025, the patient is being seen for a follow-up. The patient remains on room air oxygen. Very low energy and stamina the patient refused to get out of bed. She remains on room air oxygen she denies having any significant respite distress. The patient's sodium level is up to 129. Serum bicarb is up to 21. BUN is 59 with a creatinine of 1.07. White second 16.8 with a hemoglobin of 7.4. Noted, there has been no significant drop in hemoglobin and the patient seems to be chronically anemic. She has Proteus mirabilis in the urine and patient remains on IV Rocephin. No other significant events overnight and the patient will be transferred out of the intensive care unit yesterday. Noted the patient received a dose of Samsca yesterday and sodium level improved further. Hemodynamically stable. Tolerating diet. On 02/27/2025, the patient got transferred to the medical floor. The patient was in the ICU earlier and she got transferred out of the intensive care yesterday. She remains on IV Rocephin for a Proteus mirabilis urinary tract infection. Hemodynamically stable. White cell count of 22 with a hemoglobin 7.3. Sodium levels at 129, creatinine is 1.35 with a BUN of 73 and serum bicarb is at 22. Patient is still being seen by nephrology. She is on clear liquid diet. She is complaining of some limited nausea this morning. No signs of any respiratory distress and she remains on room air oxygen. She was able to sit up on a chair yesterday. The patient was given lactated ringer r by nephrology at rate of 75 cc an hour. Rest of the medication remain unchanged. Remains on oral bicarb. Given Reglan and Zofran for nausea. A On 02/28/2025, the patient remains out of the intensive care that the patient is completing her treatment with sepsis. She also had other comorbidities including hyponatremia and acute kidney injury for which the patient is being seen by nephrology. On today's blood work, the patient was noted to have worsening in the hemoglobin and a drop in hemoglobin was noted down to 6.6. The white cell count was at 19.6. There is also interval worsening renal function with a BUN of 89 and a creatinine of 1.2. Sodium level is also dropped down to 124. Nephrology on the case and the patient was given a dose of Samsca. The patient will be also receiving a unit of packed RBC. No evidence of any GI bleeding. Her anemia seems to be more solid chronic in nature. She remains hemodynamically stable. She remains on room air oxygen. The patient got transferred out of the intensive care unit 48 hours ago. 03/01/2025, the patient is still weak and lethargic. Hemodynamically stable. She received a total of 1 unit of packed RBC for hemoglobin of 6.6 and her hemoglobin currently is at 7.4. She remains on a combination of Rocephin and Diflucan regarding an underlying Proteus mirabilis urinary tract infection. The white cell count remains elevated at 24.5 with hemoglobin 7.2. Sodium level remains low at 124, and the patient has sustained an acute kidney injury with a BUN of 107 and a creatinine of 2.08. Obviously, the creatinine is again on the rise. The patient is morbidly obese. She is metastatic melanoma. She was h ospitalized for an acute UTI and sepsis that was treated in the intensive care unit. She is also known to have diabetes mellitus type 2, hypertension hyperlipidemia in addition to peripheral neuropathy related to diabetes mellitus. The patient is under the care of the medical team. Nephrology on the case regarding his ongoing hyponatremia and the renal failure. She did receive a bolus of 500 cc of normal saline yesterday. The patient is currently on room air oxygen. Objective - Vital Signs Vital signs: Vital Signs Temp 97.6 F 03/01/25 11:34 Pulse 72 03/01/25 11:34 Resp 18 03/01/25 11:34 BP 110/74 03/01/25 11:34 Pulse Ox 98 03/01/25 11:34 FiO2 Intake & Output 02/28/25 03/01/25 03/01/25 18:59 06:59 18:59 Intake Total 895 120 480 Output Total 300 Balance 595 120 480 Weight 142.5 kg 142.5 kg Intake: Intake, IV Titration 275 Amount Lactated Ringers 1,000 ml 225 @ 75 mls/hr IV .[id number] [facility] Rx#:[id number] cefTRIAXone 2 gm In 50 Dextrose 5% in Water 50 ml @ 100 mls/hr IVPB Q24HR [facility] Rx#:[id number] Oral 120 480 Blood Product 620 Rc As-1 Unit 310 [id number] Output: Urine 300 Other: Voiding Method Bedside Commode Bedside Commode Bedside Commode # Voids 2 1 # Bowel Movements 1 - Exam The patient appeared well nourished and normally developed. Vital signs as documented. Morbidly obese with a BMI of 48.5 Head exam is unremarkable. No scleral icterus or corneal arcus noted. Neck is without jugular venous distension, thyromegaly, or carotid bruits. Carotid upstrokes are brisk bilaterally. Lungs are clear to auscultation and percussion. Cardiac exam reveals the PMI to be normally sized and situated. Rhythm is regular. First and second heart sounds normal. No murmurs, rubs or gallops. Abdominal exam reveals normal bowel sounds, no masses, no organomegaly and no aortic enlargement. On her pelvic examination, the patient has an irregular mass in her vulva consistent with melanoma Extremities are nonedematous and both femoral and pedal pulses are normal. Examination of the skin revealed no evidence of significant rashes, suspicious appearing nevi or other concerning lesions. Neurologically, the patient is awake and alert and the patient does not have any focal neurological deficit. Cranial nerves are essentially intact. - Labs CBC & Chem 7: 03/01/25 12:26 03/01/25 07:17 Labs: Abnormal Lab Results - Last 24 Hours (Table) 03/01/25 03/01/25 03/01/25 Range/Units 07:17 07:17 11:12 WBC 21.46 H (4.50-10.00) 10*3/uL RBC 2.80 L (4.10-5.20) 10*6/uL Hgb 7.4 L (12.0-15.0) g/dL Hct 22.9 L (37.2-46.3) % MCH 26.4 L (27.0-32.0) pg MCHC (32.0-37.0) g/dL Plt Count 552 H (140-440) 10*3/uL MPV (9.5-12.2) fL Immature Gran # 0.83 H (0.00-0.04) 10*3/uL Neutrophils # 18.78 H (1.80-7.70) 10*3/uL Lymphocytes # (0.90-5.00) 10*3/uL Sodium 124 L (137-145) mmol/L Chloride 95 L (98-107) mmol/L Carbon Dioxide 21 L (22-30) mmol/L BUN 107 H* (7-17) mg/dL Creatinine 2.08 H (0.52-1.04) mg/dL Glucose 59 L (74-99) mg/dL POC Glucose (mg/dL) 151 H (70-110) mg/dL 03/01/25 Range/Units 12:26 WBC 24.50 H (4.50-10.00) 10*3/uL RBC 2.80 L (4.10-5.20) 10*6/uL Hgb 7.2 L (12.0-15.0) g/dL Hct 22.7 L (37.2-46.3) % MCH 25.7 L (27.0-32.0) pg MCHC 31.7 L (32.0-37.0) g/dL Plt Count 544 H (140-440) 10*3/uL MPV 9.3 L (9.5-12.2) fL Immature Gran # 0.93 H (0.00-0.04) 10*3/uL Neutrophils # 22.12 H (1.80-7.70) 10*3/uL Lymphocytes # 0.74 L (0.90-5.00) 10*3/uL Sodium (137-145) mmol/L Chloride (98-107) mmol/L Carbon Dioxide (22-30) mmol/L BUN (7-17) mg/dL Creatinine (0.52-1.04) mg/dL Glucose (74-99) mg/dL POC Glucose (mg/dL) (70-110) mg/dL Microbiology - Last 24 Hours (Table) 02/27/25 17:11 Urine Culture - Final Urine,Voided 02/27/25 14:09 Blood Culture - Preliminary Blood Assessment and Plan Plan: Acute sepsis, likely secondary underlying urine tract infection. Urine cultures positive for Klebsiella pneumoniae and the patient remains on IV Rocephin. Hemodynamically stable on no pressors. The white cell count remains elevated. Acute leukocytosis, secondary to above, white cell count remains elevated Acute kidney injury, improving and today's creatinine is higher compared to yesterday. The creatinine is again on the rise and the fax of the case Acute hyponatremia likely secondary acute kidney injury and sepsis. Sodium levels dropped again and nephrology on the case Acute on chronic anemia with a drop in hemoglobin down to 6.6, transfused 2 units of packed RBC and hemoglobin is up to 7.4 Morbid obesity with a BMI of 48.5 Malignant melanoma with metastatic disease to the liver and lymph nodes, received 3 cycles of Opdualag thus far. The patient has a pelvic mass/vaginal mass consistent with melanoma. Metabolic acidosis secondary to above, essentially anion gap metabolic acidosis and the patient is currently on oral bicarb. Serum bicarb is improving and the patient remains on oral bicarbonate replacement. Urinary tract infection secondary to gram-negative bacilli, cultures are positive for Proteus mirabilis Paroxysmal A-fib, currently on anticoagulation with Eliquis. Cardiac rhythm is sinus. Iron deficiency anemia, currently on IV iron Diabetes mellitus type 2, currently on Lantus insulin. History of UTIs History of hypertension Hyperlipidemia Previous fracture of the right lower extremity with difficulty with mobility Morbid obesity BMI 47 Plan: Patient currently on room air oxygen Hemodynamically stable on no pressors Transfused with a unit of packed RBC Sodium levels are still low, and the patient is still having an impaired renal function. Will be managed by nephrology. Renal function is to be further monitored Monitor the white cell count Oral bicarb IV Rocephin No pressors for now Continue anticoagulation with Eliquis Pulmonary and critical care services will sign off and the rest of the management is per medicine and nephrology.
--- NOTE | 2025-03-01 14:49 | P.PN ---
Subjective Progress Note Date: 03/01/25 Principal diagnosis: Reason for follow-up is sepsis and UTI Patient is a 55-year-old female with a past medical history significant for stage IV malignant melanoma on chemo, Diabetes Mellitus, GERD/Reflux, Hyperlipidemia, Hypertension, Osteoarthritis (OA) presenting to the hospital for evaluation of generalized weakness did have urinary symptoms a positive UA concerning for symptomatic UTI with sepsis requiring admission by ICU. On today's evaluation that is 03/01/2025, Patient is afebrile patient is currently on room air and denies having any shortness of breath, the patient denies any chest pain or cough, the patient did have some nausea but no vomiting complaining of lower abdominal pain. The patient white count is up to 24.50 also hemoglobin dropped to 7.2 creatinine is 2.08 she did have abdominal ultrasound suggestive of fluid collection Objective - Vital Signs Vital signs: Vital Signs Temp 97.6 F 03/01/25 11:34 Pulse 72 03/01/25 11:34 Resp 18 03/01/25 11:34 BP 110/74 03/01/25 11:34 Pulse Ox 98 03/01/25 11:34 FiO2 Intake & Output 02/28/25 03/01/25 03/01/25 18:59 06:59 18:59 Intake Total 895 120 480 Output Total 300 Balance 595 120 480 Weight 142.5 kg 142.5 kg Intake: Intake, IV Titration 275 Amount Lactated Ringers 1,000 ml 225 @ 75 mls/hr IV .[id number] [facility] Rx#:[id number] cefTRIAXone 2 gm In 50 Dextrose 5% in Water 50 ml @ 100 mls/hr IVPB Q24HR [facility] Rx#:[id number] Oral 120 480 Blood Product 620 Rc As-1 Unit 310 [id number] Output: Urine 300 Other: Voiding Method Bedside Commode Bedside Commode Bedside Commode # Voids 2 1 # Bowel Movements 1 - Exam GENERAL DESCRIPTION: A middle-age female lying in bed in no distress RESPIRATORY SYSTEM: Unlabored breathing , decreased breath sounds at bases HEART: S1 S2 regular rate and rhythm , ABDOMEN: Soft , no tenderness EXTREMITIES: No edema feet - Labs CBC & Chem 7: 03/01/25 12:26 03/01/25 07:17 Labs: Abnormal Lab Results - Last 24 Hours (Table) 02/28/25 03/01/25 03/01/25 Range/Units 09:18 07:17 07:17 WBC 21.46 H (4.50-10.00) 10*3/uL RBC 2.80 L (4.10-5.20) 10*6/uL Hgb 7.4 L (12.0-15.0) g/dL Hct 22.9 L (37.2-46.3) % MCH 26.4 L (27.0-32.0) pg MCHC (32.0-37.0) g/dL Plt Count 552 H (140-440) 10*3/uL MPV (9.5-12.2) fL Immature Gran # 0.83 H (0.00-0.04) 10*3/uL Neutrophils # 18.78 H (1.80-7.70) 10*3/uL Lymphocytes # (0.90-5.00) 10*3/uL Sodium 124 L (137-145) mmol/L Chloride 95 L (98-107) mmol/L Carbon Dioxide 21 L (22-30) mmol/L BUN 107 H* (7-17) mg/dL Creatinine 2.08 H (0.52-1.04) mg/dL Glucose 59 L (74-99) mg/dL POC Glucose (mg/dL) (70-110) mg/dL Crossmatch See Detail 03/01/25 03/01/25 Range/Units 11:12 12:26 WBC 24.50 H (4.50-10.00) 10*3/uL RBC 2.80 L (4.10-5.20) 10*6/uL Hgb 7.2 L (12.0-15.0) g/dL Hct 22.7 L (37.2-46.3) % MCH 25.7 L (27.0-32.0) pg MCHC 31.7 L (32.0-37.0) g/dL Plt Count 544 H (140-440) 10*3/uL MPV 9.3 L (9.5-12.2) fL Immature Gran # 0.93 H (0.00-0.04) 10*3/uL Neutrophils # 22.12 H (1.80-7.70) 10*3/uL Lymphocytes # 0.74 L (0.90-5.00) 10*3/uL Sodium (137-145) mmol/L Chloride (98-107) mmol/L Carbon Dioxide (22-30) mmol/L BUN (7-17) mg/dL Creatinine (0.52-1.04) mg/dL Glucose (74-99) mg/dL POC Glucose (mg/dL) 151 H (70-110) mg/dL Crossmatch Microbiology - Last 24 Hours (Table) 02/27/25 17:11 Urine Culture - Final Urine,Voided 02/27/25 14:09 Blood Culture - Preliminary Blood Assessment and Plan (1) Sepsis Current Visit: Yes Status: Acute Code(s): A41.9 - SEPSIS, UNSPECIFIED ORGANISM SNOMED Code(s): 05360420 (2) LISSETTE (acute kidney injury) Current Visit: Yes Status: Acute Code(s): N17.9 - ACUTE KIDNEY FAILURE, UNSPECIFIED SNOMED Code(s): 08747464 (3) UTI (urinary tract infection) Current Visit: Yes Status: Acute Code(s): N39.0 - URINARY TRACT INFECTION, SITE NOT SPECIFIED SNOMED Code(s): 65229437 (4) Leukocytosis Current Visit: Yes Status: Acute Code(s): D72.829 - ELEVATED WHITE BLOOD CELL COUNT, UNSPECIFIED SNOMED Code(s): 031455727 Plan: 1patient [facility] hospital with sepsis in this patient who did have tachycardia hypotension elevated white count meeting criteria for SIRS/sepsis source likely urinary in this patient has significantly positive UA along with urinary symptoms likely from enteric gram-negative pathogen keeping in mind history of cancer on chemo will need to cover for resistant gram-negative pathogen 2-patient is afebrile however noticed to have worsening of her white count for the patient have a CT of abdominal pelvis mention worsening lymphadenopathy and concern for hepatic metastasis right lower abdominal wall hematoma nursing staff in contact with admitting team and possible hematology reevaluation, for now continue with Rocephin and Diflucan Dictation was produced using [employer] dictation software. please excuse any grammatical, word or spelling errors. Time with Patient: Less than 30
[2025-03-01 16:00] LABS: Glucose,Whole Blood 124 mg/dL (70-110)
[2025-03-01] MEDS: MIDODRINE 5 MG TAB PO SCH (17:45)
[2025-03-01 19:05] LABS: Basophils # (A) 0.05 10*3/uL (0.00-0.10); Basophils % (A) 0.2 %; Eosinophils # (A) 0.15 10*3/uL (0.04-0.35); Eosinophils % (A) 0.7 %; HCT 21.1 % (37.2-46.3); Lymphocytes # (A) 1.08 10*3/uL (0.90-5.00); Lymphocytes % (A) 4.8 %; MCH 26.1 pg (27.0-32.0); MCHC 32.2 g/dL (32.0-37.0); MCV 80.8 fL (80.0-97.0); Mean Platelet Volume 9.2 fL (9.5-12.2); Monocytes # (A) 0.64 10*3/uL (0.20-1.00); Monocytes % (A) 2.8 %; Neutrophils # (A) 19.68 10*3/uL (1.80-7.70); Neutrophils % (A) 87.3 %; Platelet Count 474 10*3/uL (140-440); RBC 2.61 10*6/uL (4.10-5.20); RDW 17.7 % (11.5-14.5); WBC 22.55 10*3/uL (4.50-10.00)
[2025-03-01 19:26] LABS: HGB 6.8 g/dL (12.0-15.0)
[2025-03-01 20:20] LABS: Glucose,Whole Blood 164 mg/dL (70-110)
[2025-03-02 00:25] LABS: Basophils # (A) 0.04 10*3/uL (0.00-0.10); Basophils % (A) 0.2 %; Eosinophils # (A) 0.32 10*3/uL (0.04-0.35); Eosinophils % (A) 1.5 %; HCT 23.4 % (37.2-46.3); HGB 7.7 g/dL (12.0-15.0); Lymphocytes # (A) 1.08 10*3/uL (0.90-5.00); Lymphocytes % (A) 5.1 %; MCH 27.3 pg (27.0-32.0); MCHC 32.9 g/dL (32.0-37.0); Mean Platelet Volume 9.3 fL (9.5-12.2); Monocytes # (A) 0.79 10*3/uL (0.20-1.00); Monocytes % (A) 3.7 %; Neutrophils # (A) 18.14 10*3/uL (1.80-7.70); Neutrophils % (A) 85.4 %; Platelet Count 501 10*3/uL (140-440); RBC 2.82 10*6/uL (4.10-5.20); RDW 18.3 % (11.5-14.5); WBC 21.23 10*3/uL (4.50-10.00)
[2025-03-02 02:21] LABS: Glucose,Whole Blood 118 mg/dL (70-110)
[2025-03-02 05:55] LABS: Glucose,Whole Blood 95 mg/dL (70-110)
[2025-03-02 07:47] LABS: Basophils # (A) 0.02 10*3/uL (0.00-0.10); Basophils % (A) 0.1 %; Eosinophils # (A) 0.38 10*3/uL (0.04-0.35); Eosinophils % (A) 1.9 %; HCT 22.9 % (37.2-46.3); HGB 7.3 g/dL (12.0-15.0); Lymphocytes # (A) 0.94 10*3/uL (0.90-5.00); Lymphocytes % (A) 4.7 %; MCH 26.4 pg (27.0-32.0); MCHC 31.9 g/dL (32.0-37.0); MCV 82.7 fL (80.0-97.0); Mean Platelet Volume 9.2 fL (9.5-12.2); Monocytes % (A) 3.5 %; Neutrophils % (A) 85.8 %; Platelet Count 462 10*3/uL (140-440); RBC 2.77 10*6/uL (4.10-5.20); RDW 17.8 % (11.5-14.5); WBC 20.14 10*3/uL (4.50-10.00)
--- NOTE | 2025-03-02 11:21 | P.PN ---
Subjective Patient is seen for follow-up for acute kidney injury and hyponatremia. Renal function has been worsening over the last few days. Patient reports poor oral intake. Difficult to obtain charting of urine output Status post 500 cc bolus yesterday. Serum sodium was 121 last night. Labs are pending from today. Patient continues to complain of nausea. Not able to maintain oral intake. Objective - Vital Signs Vital signs: Vital Signs Temp 97.8 F 03/02/25 07:46 Pulse 64 03/02/25 07:46 Resp 16 03/02/25 07:46 BP 107/73 03/02/25 07:46 Pulse Ox 98 03/02/25 07:46 FiO2 Intake & Output 03/01/25 03/02/25 03/02/25 18:59 06:59 18:59 Intake Total 598 310 0 Output Total 180 Balance 418 310 0 Weight 149 kg Intake: Oral 598 0 Blood Product 310 Rc As-1 Unit 310 [id number] Output: Urine 180 Other: Voiding Method Bedside Commode Bedside Commode Bedside Commode # Voids 1 1 - Exam Patient is awake, comfortable, no acute distress. Examination of the heart S1 and S2 Examination of the lungs bilateral breath sounds are heard Abdomen is soft obese Examination of lower extremities shows 1+ edema right leg, no edema left leg - Labs CBC & Chem 7: 03/02/25 06:58 03/01/25 18:51 Labs: Abnormal Lab Results - Last 24 Hours (Table) 02/28/25 03/01/25 03/01/25 Range/Units 09:18 12:26 15:59 WBC 24.50 H (4.50-10.00) 10*3/uL RBC 2.80 L (4.10-5.20) 10*6/uL Hgb 7.2 L (12.0-15.0) g/dL Hct 22.7 L (37.2-46.3) % MCH 25.7 L (27.0-32.0) pg MCHC 31.7 L (32.0-37.0) g/dL Plt Count 544 H (140-440) 10*3/uL MPV 9.3 L (9.5-12.2) fL Immature Gran # 0.93 H (0.00-0.04) 10*3/uL Neutrophils # 22.12 H (1.80-7.70) 10*3/uL Lymphocytes # 0.74 L (0.90-5.00) 10*3/uL Eosinophils # (0.04-0.35) 10*3/uL Sodium (137-145) mmol/L POC Glucose (mg/dL) 124 H (70-110) mg/dL Crossmatch See Detail 03/01/25 03/01/25 03/01/25 Range/Units 18:51 18:51 20:18 WBC 22.55 H (4.50-10.00) 10*3/uL RBC 2.61 L (4.10-5.20) 10*6/uL Hgb 6.8 L* (12.0-15.0) g/dL Hct 21.1 L (37.2-46.3) % MCH 26.1 L (27.0-32.0) pg MCHC (32.0-37.0) g/dL Plt Count 474 H (140-440) 10*3/uL MPV 9.2 L (9.5-12.2) fL Immature Gran # 0.95 H (0.00-0.04) 10*3/uL Neutrophils # 19.68 H (1.80-7.70) 10*3/uL Lymphocytes # (0.90-5.00) 10*3/uL Eosinophils # (0.04-0.35) 10*3/uL Sodium 121 L (137-145) mmol/L POC Glucose (mg/dL) 164 H (70-110) mg/dL Crossmatch 03/01/25 03/02/25 03/02/25 Range/Units 23:50 02:18 06:58 WBC 21.23 H 20.14 H (4.50-10.00) 10*3/uL RBC 2.82 L 2.77 L (4.10-5.20) 10*6/uL Hgb 7.7 L 7.3 L (12.0-15.0) g/dL Hct 23.4 L 22.9 L (37.2-46.3) % MCH 26.4 L (27.0-32.0) pg MCHC 31.9 L (32.0-37.0) g/dL Plt Count 501 H 462 H (140-440) 10*3/uL MPV 9.3 L 9.2 L (9.5-12.2) fL Immature Gran # 0.86 H 0.80 H (0.00-0.04) 10*3/uL Neutrophils # 18.14 H 17.30 H (1.80-7.70) 10*3/uL Lymphocytes # (0.90-5.00) 10*3/uL Eosinophils # 0.38 H (0.04-0.35) 10*3/uL Sodium (137-145) mmol/L POC Glucose (mg/dL) 118 H (70-110) mg/dL Crossmatch Microbiology - Last 24 Hours (Table) 02/27/25 14:09 Blood Culture - Preliminary Blood 02/27/25 17:11 Urine Culture - Final Urine,Voided Assessment and Plan Assessment: 1. 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 Urine osmolality 252. Sodium 124 this morning. Cortisol level high. TSH normal. Urine osmolality 252. Status post [facility] on 02/25/2025 2. Malignant melanoma with metastatic disease to liver and lymph nodes. 3. Acute kidney injury secondary to ATN secondary to severe sepsis. Baseline creatinine near 1 from December 2024. Creatinine 2.96 on admission and improved to 1.06 - now worsening again due to acute blood loss anemia. 4. UTI on antibiotics. Urine culture positive for Proteus. 5. Metabolic acidosis secondary to acute kidney injury and IV fluids. Was also on metformin. On oral bicarb. 6. Diabetes mellitus. 7. Anemia. Iron deficiency noted. s/p IV iron. Having vaginal bleeding. Hemoglobin 7.3 today. 8. Mild volume overload. Plan: Repeat labs today May need to discontinue urea if BUN continues to increase Continue midodrine Sodium chloride tab x 1 Continue with oral sodium bicarb
[2025-03-02 11:25] LABS: African American GFR (CKD) 31 (>60 ml/min/1.73 sqM); Anion Gap 14 mmol/L; Carbon Dioxide 21 mmol/L (22-30); Chloride 94 mmol/L (98-107); Glucose 67 mg/dL (74-99); Non-African American GFR(CKD) 27 (>60 ml/min/1.73 sqM); Potassium 4.2 mmol/L (3.5-5.1); Sodium 129 mmol/L (137-145)
[2025-03-02 11:30] LABS: Blood Urea Nitrogen 114 mg/dL (7-17)
[2025-03-02 11:32] LABS: Glucose,Whole Blood 117 mg/dL (70-110)
[2025-03-02] MEDS: SODIUM CHLORIDE TAB 1 GM TAB PO STA (11:40)
[2025-03-02 15:23] LABS: HCT 25.8 % (37.2-46.3); HGB 8.3 g/dL (12.0-15.0); MCH 26.8 pg (27.0-32.0); MCHC 32.2 g/dL (32.0-37.0); MCV 83.2 fL (80.0-97.0); Mean Platelet Volume 9.2 fL (9.5-12.2); Platelet Count 543 10*3/uL (140-440); RDW 17.9 % (11.5-14.5)
--- NOTE | 2025-03-02 15:29 | P.PN ---
Subjective Progress Note Date: 03/02/25 Principal diagnosis: Metastatic melanoma - Afebrile, no acute events overnight - Noted to have intermittent nausea today with no vomiting - Continues to have discomfort in the left groin/pelvic area secondary to hematoma Objective - Vital Signs Vital signs: Vital Signs Temp 98.1 F 03/02/25 11:33 Pulse 71 03/02/25 11:33 Resp 18 03/02/25 11:33 BP 117/74 03/02/25 11:33 Pulse Ox 99 03/02/25 11:33 FiO2 Intake & Output 03/01/25 03/02/25 03/02/25 18:59 06:59 18:59 Intake Total 598 310 0 Output Total 180 100 Balance 418 310 -100 Weight 149 kg Intake: Oral 598 0 Blood Product 310 Rc As-1 Unit 310 [id number] Output: Urine 180 100 Other: Voiding Method Bedside Commode Bedside Commode Bedside Commode # Voids 1 1 - Constitutional General appearance: Present: cooperative, morbidly obese, no acute distress - EENT Eyes: Present: EOMI - Respiratory Details: Nonlabored breathing - Cardiovascular Details: Warm and well-perfused - Gastrointestinal General gastrointestinal: Present: soft. Absent: distended - Integumentary Integumentary Comment(s): Hematoma tender to palpation noted in the pelvic area extending to the left groin - Labs CBC & Chem 7: 03/02/25 06:58 03/02/25 06:58 Labs: Abnormal Lab Results - Last 24 Hours (Table) 02/28/25 03/01/25 03/01/25 Range/Units 09:18 15:59 18:51 WBC (4.50-10.00) 10*3/uL RBC (4.10-5.20) 10*6/uL Hgb (12.0-15.0) g/dL Hct (37.2-46.3) % MCH (27.0-32.0) pg MCHC (32.0-37.0) g/dL Plt Count (140-440) 10*3/uL MPV (9.5-12.2) fL Immature Gran # (0.00-0.04) 10*3/uL Neutrophils # (1.80-7.70) 10*3/uL Eosinophils # (0.04-0.35) 10*3/uL Sodium 121 L (137-145) mmol/L Chloride (98-107) mmol/L Carbon Dioxide (22-30) mmol/L BUN (7-17) mg/dL Creatinine (0.52-1.04) mg/dL Glucose (74-99) mg/dL POC Glucose (mg/dL) 124 H (70-110) mg/dL Crossmatch See Detail 03/01/25 03/01/25 03/01/25 Range/Units 18:51 20:18 23:50 WBC 22.55 H 21.23 H (4.50-10.00) 10*3/uL RBC 2.61 L 2.82 L (4.10-5.20) 10*6/uL Hgb 6.8 L* 7.7 L (12.0-15.0) g/dL Hct 21.1 L 23.4 L (37.2-46.3) % MCH 26.1 L (27.0-32.0) pg MCHC (32.0-37.0) g/dL Plt Count 474 H 501 H (140-440) 10*3/uL MPV 9.2 L 9.3 L (9.5-12.2) fL Immature Gran # 0.95 H 0.86 H (0.00-0.04) 10*3/uL Neutrophils # 19.68 H 18.14 H (1.80-7.70) 10*3/uL Eosinophils # (0.04-0.35) 10*3/uL Sodium (137-145) mmol/L Chloride (98-107) mmol/L Carbon Dioxide (22-30) mmol/L BUN (7-17) mg/dL Creatinine (0.52-1.04) mg/dL Glucose (74-99) mg/dL POC Glucose (mg/dL) 164 H (70-110) mg/dL Crossmatch 03/02/25 03/02/25 03/02/25 Range/Units 02:18 06:58 06:58 WBC 20.14 H (4.50-10.00) 10*3/uL RBC 2.77 L (4.10-5.20) 10*6/uL Hgb 7.3 L (12.0-15.0) g/dL Hct 22.9 L (37.2-46.3) % MCH 26.4 L (27.0-32.0) pg MCHC 31.9 L (32.0-37.0) g/dL Plt Count 462 H (140-440) 10*3/uL MPV 9.2 L (9.5-12.2) fL Immature Gran # 0.80 H (0.00-0.04) 10*3/uL Neutrophils # 17.30 H (1.80-7.70) 10*3/uL Eosinophils # 0.38 H (0.04-0.35) 10*3/uL Sodium 129 L (137-145) mmol/L Chloride 94 L (98-107) mmol/L Carbon Dioxide 21 L (22-30) mmol/L BUN 114 H* (7-17) mg/dL Creatinine 1.99 H (0.52-1.04) mg/dL Glucose 67 L (74-99) mg/dL POC Glucose (mg/dL) 118 H (70-110) mg/dL Crossmatch 03/02/25 Range/Units 11:30 WBC (4.50-10.00) 10*3/uL RBC (4.10-5.20) 10*6/uL Hgb (12.0-15.0) g/dL Hct (37.2-46.3) % MCH (27.0-32.0) pg MCHC (32.0-37.0) g/dL Plt Count (140-440) 10*3/uL MPV (9.5-12.2) fL Immature Gran # (0.00-0.04) 10*3/uL Neutrophils # (1.80-7.70) 10*3/uL Eosinophils # (0.04-0.35) 10*3/uL Sodium (137-145) mmol/L Chloride (98-107) mmol/L Carbon Dioxide (22-30) mmol/L BUN (7-17) mg/dL Creatinine (0.52-1.04) mg/dL Glucose (74-99) mg/dL POC Glucose (mg/dL) 117 H (70-110) mg/dL Crossmatch Microbiology - Last 24 Hours (Table) 02/27/25 14:09 Blood Culture - Preliminary Blood Assessment and Plan (1) Metastatic melanoma to liver Current Visit: Yes Status: Acute Code(s): C78.7 - SECONDARY MALIG NEOPLASM OF LIVER AND INTRAHEPATIC BILE DUCT SNOMED Code(s): 350340038 (2) Hematoma Current Visit: Yes Status: Acute Code(s): T14.8XXA - OTHER INJURY OF UNSPECIFIED BODY REGION, INITIAL ENCOUNTER SNOMED Code(s): 608282143 (3) Leukocytosis Current Visit: Yes Status: Acute Code(s): D72.829 - ELEVATED WHITE BLOOD CELL COUNT, UNSPECIFIED SNOMED Code(s): 686154669 Plan: #Septic shock secondary to UTI - Improved with antibiotics along with supportive care with IV fluids and Levophed - Continues on ceftriaxone per infectious disease - Repeat urine and blood cultures due to leukocytosis on 02/27/2025 were negative #Hyponatremia - Seen by nephrology and has received Samsca during this admission - 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 and malignancy #Hematoma - Noted to have hematoma in the left groin extending to the pelvis - Required 2 units of packed red blood cells (1 on 02/28/2025, 1 on 03/01/2025) - Apixaban dose was decreased from 5 mg twice daily to 2.5 mg twice daily, which I agree with - If she has further anemia, apixaban can be discontinued while inpatient #Metastatic melanoma - Received 3 cycles of Opdualag with the most recent on 02/17/2025 - CT abdomen/pelvis inpatient revealed known metastases to the liver and abdominal/iliac lymphadenopathy - We will plan on repeating PET/CT outpatient to assess response to immunotherapy Courtney Alejandre MD
[2025-03-02 16:26] LABS: Glucose,Whole Blood 62 mg/dL (70-110)
[2025-03-02 16:47] LABS: Glucose,Whole Blood 61 mg/dL (70-110)
[2025-03-02] MEDS: DEXTROSE 50% SYRINGE 50 ML IVP STA (16:51)
[2025-03-02 17:12] LABS: Glucose,Whole Blood 106 mg/dL (70-110)
--- NOTE | 2025-03-02 19:11 | P.PN ---
Subjective Patient is a 55-year-old female with a past medical history of hypertension, hyperlipidemia, diabetes type 2 insulin-dependent, metastatic malignant melanoma with mets to liver and lymph nodes, depression, prior history of smoking, GERD and diabetic peripheral neuropathy and history of SVT, prior history of smoking. Patient presents to ER from Dr. Botello's office due to abnormal labs. Patient was also having generalized weakness. She was in the office for her third infusion. She had blood workup done yesterday which showed multiple abnormalities and was recommended to go to ER. She is also having generalized body pains. Also worsening shortness of breath. No chest pain. She does have decreased appetite and not eating well., No nausea no episodes of vomiting. EKG on admission showed sinus rhythm with heart rate 62 Chest x-ray showed no focal consolidation. Elevation of the right hemidiaphragm which is increased from prior exam. Consider sniff test to evaluate for diaphragmatic paralysis. Laboratory data showed WBC 26.7 hemoglobin 8.8 and platelets 634 MCV 75.3 Sodium 118, potassium 4.1 chloride 93 bicarb is 10 BUN 52 and creatinine 2.96, blood sugar 103 lactic acid 1.1 phosphorus 5.8 alk phos 241 proBNP 2350 lipase 441 Urinalysis showed light yellow turbid with large blood nitrite positive leukocyte esterase large elevated RBCs and WBCs. Influenza A B RSV and COVID-19 PCR not detected. 02/22/2025 Patient is in the MICU. Patient is requiring pressor support with Levophed. Resting in the bed. Awake alert and oriented. Currently on room air. Afebrile overnight. Denied any complaints of nausea vomiting abdominal pain or diarrhea. Lab data showed WBC trending down to 21.7 hemoglobin 8.2 and platelets 0.91 sodium improved to 121 potassium 4.5 chloride 101 bicarb is 6 BUN 54 and creatinine 2.72. Antibiotics were changed to cefazolin 2 g Q12. Nephrology and ID is on board. 02/24/2024 Patient is needing intensive care unit. Awake alert and oriented x 3. Currently on room air. Patient is off pressor support since 5 AM this morning. Sodium level improved to 127 today. Patient is on antibiotics in the form of cefepime. Urine culture showed Proteus Mirabella's. Laboratory data showed WBC 17.7 hemoglobin 7.4 and platelets 505 sodium 123 potassium 3.6 chloride 98 bicarb is 15 BUN 44 and creatinine 1.98, calcium 8.3. 02/24/2025 Patient is in MICU. Ureteric and ovarian x 3. Currently on room air. No c omplaints of chest pain or shortness of breath. Sodium level improved to 127 today. Patient is also been antibiotics for urinary tract infection with ceftriaxone. Urine culture growing Proteus mirabilis. Patient has been afebrile. Patient was given urea 15 g p.o. twice daily. Continued on insulin regimen. Laboratory test showed WBC 16.1 hemoglobin 7.3 and platelets 543 sodium 127 potassium 3.8 chloride 98 bicarb is 15 BUN 4020 creatinine 1.35 and blood sugar 82 magnesium 1.7 albumin 2.4. 02/25/2025 Patient is resting in the bed. Awake alert and oriented. No complaints of chest pain or shortness of breath. Tolerating oral diet. Patient is off IV fluids. He was started on urea and patient was also given Samsca. Sodium level is 126 today. Other laboratory data showed sodium 126 potassium 3.9 chloride 97 bicarb is 19 BUN 56 and creatinine 1.06 and blood sugar 125. Magnesium 1.9. Patient is getting ceftriaxone for urinary tract infection. 02/26 Patient lying in bed comfortable no chest pain or dyspnea No vomiting, she has average appetite No abdominal abdominal pain Patient has ongoing dysuria. 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 As per patient she was getting chemotherapy since November 2024. Her oncologist as outpatient is Dr. Botello. She had 3 cycles of chemotherapy so far. Her Cozaar Aldactone and metformin remain on hold 02/27 Clinically looks the same, awake and alert Main complaint is dysuria which is going on for 1.5 months which looks chronic related to her vaginal mass She is following up with hematology/oncology. Also she follow-up with the surgeon at [facility] with no plans for surgical intervention. Also patient confirms to me that she follow-up with advanced research programs director in [place]. She has right foot boot on. She says she has fracture on November 26 and she is going to follow-up with her orthopedic in 1 to 2 weeks after discharge. No other new complaints Vital stable and afebrile. 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 Both of these lesions has progressed today She is developing more signs of infection with hypotension, leukocytosis went up to 19.6. Creatinine went up to 1.8, systolic blood pressure dropped from 140s down to 100 but slightly less. Patient thought secondary to have urinary tract infection and she is on ceftriaxone 2 g. Diflucan with loading dose added today. No respiratory symptoms no abdominal pain or diarrhea. No rash. No other source of infection She is also on Cardizem 120 and metoprolol 50 mg for A-fib. Also she is on Eliquis 2.5 mg. Hemoglobin dropped today to 6.6. With no evidence of bleeding. She is getting unit of blood transfusion. Posttransfusion Lasix was held because of borderline low blood pressure. After the blood pressure improved. Also she has CT of the abdomen and pelvis showing generalized lymphadenopathy and around the aorta and retrocaval as well as along the iliac chain Most likely related to her metastatic disease. There is evidence also of hepatic metastasis, hematology/oncology team on the case. Patient was informed with some of the CT findings as above 03/01 Patient is still feeling lethargic. She has large fullness with a bruise in the lower abdomen, she is morbidly obese and she has already pendulous abdomen, the area is standing in her. Possible bleeding. Hold Eliquis and check abdominal ultrasound She is s/p 1 unit of blood transfusion yesterday, hemoglobin went up 6.6 up to 7.4. She is also on ceftriaxone and Diflucan for suspected UTI She is a known case of malignant melanoma with evidence of metastasis to the abdominal lymphadenopathy and liver. Today at bedside throughout the encounter 03/02 Patient today feels better She has pain at the hematoma site in the lower abdomen Hemoglobin was 7.77.3 and rechecked it was 8.3, she is status post blood transfusion yesterday for hemoglobin dropped to 6.8 No other new signs symptoms Eliquis dose was lowered from 5 down to 2.5 mg for her history of A-fib She remains on ceftriaxone and Diflucan yesterday still has leukocytosis about 21,000 Pulmonary service signed off the case today Objective - Vital Signs Vital signs: Vital Signs Temp 98.1 F 03/02/25 11:33 Pulse 71 03/02/25 11:33 Resp 18 03/02/25 11:33 BP 117/74 03/02/25 11:33 Pulse Ox 99 03/02/25 11:33 FiO2 Intake & Output 03/01/25 03/02/25 03/02/25 18:59 06:59 18:59 Intake Total 598 310 0 Output Total 180 100 Balance 418 310 -100 Weight 149 kg Intake: Oral 598 0 Blood Product 310 Rc As-1 Unit 310 [id number] Output: Urine 180 100 Other: Voiding Method Bedside Commode Bedside Commode Bedside Commode # Voids 1 1 - Exam -GENERAL: The patient is alert and oriented x3, not in any acute distress. Well developed, well nourished. Obese HEENT: Pupils are round and equally reacting to light. EOMI. No scleral icterus. No conjunctival pallor. Normocephalic, atraumatic. No pharyngeal erythema. No thyromegaly. CARDIOVASCULAR: S1 and S2 present. No murmurs, rubs, or gallops. PULMONARY: Chest is clear to auscultation, no wheezing , no crackles. ABDOMEN: Soft, nontender, nondistended, normoactive bowel sounds. No palpable organomegaly. MUSCULOSKELETAL: No joint swelling or deformity. EXTREMITIES: No cyanosis, clubbing, or pedal edema. NEUROLOGICAL: Gross neurological examination did not reveal any focal deficits. SKIN: No rashes. no petechiae. - Labs CBC & Chem 7: 03/02/25 15:07 03/02/25 06:58 Labs: Abnormal Lab Results - Last 24 Hours (Table) 02/28/25 03/01/25 03/01/25 Range/Units 09:18 12:26 15:59 WBC 24.50 H (4.50-10.00) 10*3/uL RBC 2.80 L (4.10-5.20) 10*6/uL Hgb 7.2 L (12.0-15.0) g/dL Hct 22.7 L (37.2-46.3) % MCH 25.7 L (27.0-32.0) pg MCHC 31.7 L (32.0-37.0) g/dL Plt Count 544 H (140-440) 10*3/uL MPV 9.3 L (9.5-12.2) fL Immature Gran # 0.93 H (0.00-0.04) 10*3/uL Neutrophils # 22.12 H (1.80-7.70) 10*3/uL Lymphocytes # 0.74 L (0.90-5.00) 10*3/uL Eosinophils # (0.04-0.35) 10*3/uL Sodium (137-145) mmol/L Chloride (98-107) mmol/L Carbon Dioxide (22-30) mmol/L BUN (7-17) mg/dL Creatinine (0.52-1.04) mg/dL Glucose (74-99) mg/dL POC Glucose (mg/dL) 124 H (70-110) mg/dL Crossmatch See Detail 03/01/25 03/01/25 03/01/25 Range/Units 18:51 18:51 20:18 WBC 22.55 H (4.50-10.00) 10*3/uL RBC 2.61 L (4.10-5.20) 10*6/uL Hgb 6.8 L* (12.0-15.0) g/dL Hct 21.1 L (37.2-46.3) % MCH 26.1 L (27.0-32.0) pg MCHC (32.0-37.0) g/dL Plt Count 474 H (140-440) 10*3/uL MPV 9.2 L (9.5-12.2) fL Immature Gran # 0.95 H (0.00-0.04) 10*3/uL Neutrophils # 19.68 H (1.80-7.70) 10*3/uL Lymphocytes # (0.90-5.00) 10*3/uL Eosinophils # (0.04-0.35) 10*3/uL Sodium 121 L (137-145) mmol/L Chloride (98-107) mmol/L Carbon Dioxide (22-30) mmol/L BUN (7-17) mg/dL Creatinine (0.52-1.04) mg/dL Glucose (74-99) mg/dL POC Glucose (mg/dL) 164 H (70-110) mg/dL Crossmatch 03/01/25 03/02/25 03/02/25 Range/Units 23:50 02:18 06:58 WBC 21.23 H 20.14 H (4.50-10.00) 10*3/uL RBC 2.82 L 2.77 L (4.10-5.20) 10*6/uL Hgb 7.7 L 7.3 L (12.0-15.0) g/dL Hct 23.4 L 22.9 L (37.2-46.3) % MCH 26.4 L (27.0-32.0) pg MCHC 31.9 L (32.0-37.0) g/dL Plt Count 501 H 462 H (140-440) 10*3/uL MPV 9.3 L 9.2 L (9.5-12.2) fL Immature Gran # 0.86 H 0.80 H (0.00-0.04) 10*3/uL Neutrophils # 18.14 H 17.30 H (1.80-7.70) 10*3/uL Lymphocytes # (0.90-5.00) 10*3/uL Eosinophils # 0.38 H (0.04-0.35) 10*3/uL Sodium (137-145) mmol/L Chloride (98-107) mmol/L Carbon Dioxide (22-30) mmol/L BUN (7-17) mg/dL Creatinine (0.52-1.04) mg/dL Glucose (74-99) mg/dL POC Glucose (mg/dL) 118 H (70-110) mg/dL Crossmatch 03/02/25 03/02/25 Range/Units 06:58 11:30 WBC (4.50-10.00) 10*3/uL RBC (4.10-5.20) 10*6/uL Hgb (12.0-15.0) g/dL Hct (37.2-46.3) % MCH (27.0-32.0) pg MCHC (32.0-37.0) g/dL Plt Count (140-440) 10*3/uL MPV (9.5-12.2) fL Immature Gran # (0.00-0.04) 10*3/uL Neutrophils # (1.80-7.70) 10*3/uL Lymphocytes # (0.90-5.00) 10*3/uL Eosinophils # (0.04-0.35) 10*3/uL Sodium 129 L (137-145) mmol/L Chloride 94 L (98-107) mmol/L Carbon Dioxide 21 L (22-30) mmol/L BUN 114 H* (7-17) mg/dL Creatinine 1.99 H (0.52-1.04) mg/dL Glucose 67 L (74-99) mg/dL POC Glucose (mg/dL) 117 H (70-110) mg/dL Crossmatch Microbiology - Last 24 Hours (Table) 02/27/25 14:09 Blood Culture - Preliminary Blood 02/27/25 17:11 Urine Culture - Final Urine,Voided Assessment and Plan Assessment: Lower abdominal hematoma suspected with severe anemia required unit of blood transfusion on 03/01 Severe hyponatremia with sodium level 118 on admission-hypoosmolar hyponatremia due to decreased oral intake and LISSETTE. Acute kidney injury. Possible ATN. SIADH cannot be excluded due to underlying malignancy. Creatinine 2.96 on admission baseline 1.0 Non-anion gap metabolic acidosis Acute urinary tract infection with Proteus Mirabella's. Mild pancreatitis with lipase level 441 Malignant melanoma with mets to liver and lymph nodes, generalized intra-abdom inal lymphadenopathy and hepatic metastasis. On chemoinfusion and is on follow- up with oncology. Diabetes type 2 insulin-dependent Diabetic peripheral neuropathy History of SVT Paroxysmal atrial fibrillation Osteoarthritis Hypertension Hyperlipidemia GERD Depression Prior history of smoking Microcytic anemia rule out iron deficiency. Hemoglobin 8.8 on admission morbid obesity Plan: Patient put back on Eliquis at last office 2.5 mg Continue with ceftriaxone and Diflucan as per ID team on the case supervisor sodium level, improving slowly and gradually. Patient received blood transfusion and IV fluid Monitor creatinine Nephrology team consult Critical care team consult sign of the case on 03/02 Hematology/oncology team consult Continue holding metformin, Aldactone and Cozaar Hematology/oncology team on the case GI prophylaxis: Protonix DVT prophylaxis: Eliquis, currently on hold Physical therapist recommended home versus subacute rehab Prognosis is guarded
[2025-03-02 19:46] LABS: Glucose,Whole Blood 93 mg/dL (70-110)
[2025-03-02] MEDS: ZINC OXIDE PASTE (Z-GUARD) 1 APPLIC TOPICAL PRN (20:48)
[2025-03-03 02:12] LABS: Glucose,Whole Blood 61 mg/dL (70-110)
[2025-03-03 02:36] LABS: Glucose,Whole Blood 76 mg/dL (70-110)
[2025-03-03 05:02] LABS: Glucose,Whole Blood 108 mg/dL (70-110)
[2025-03-03] MEDS: PANTOPRAZOLE 40 MG TABLET PO SCH (06:22)
[2025-03-03 07:18] LABS: Basophils # (A) 0.04 10*3/uL (0.00-0.10); Basophils % (A) 0.2 %; Eosinophils # (A) 0.28 10*3/uL (0.04-0.35); Eosinophils % (A) 1.5 %; HGB 7.6 g/dL (12.0-15.0); Lymphocytes # (A) 0.89 10*3/uL (0.90-5.00); Lymphocytes % (A) 4.7 %; MCH 27.1 pg (27.0-32.0); MCV 82.1 fL (80.0-97.0); Mean Platelet Volume 9.4 fL (9.5-12.2); Monocytes # (A) 0.58 10*3/uL (0.20-1.00); Monocytes % (A) 3.1 %; Neutrophils # (A) 16.61 10*3/uL (1.80-7.70); Platelet Count 505 10*3/uL (140-440); WBC 18.87 10*3/uL (4.50-10.00)
[2025-03-03 07:34] LABS: African American GFR (CKD) 38 (>60 ml/min/1.73 sqM); Anion Gap 6 mmol/L; Calcium 8.7 mg/dL (8.4-10.2); Carbon Dioxide 20 mmol/L (22-30); Chloride 97 mmol/L (98-107); Glucose 80 mg/dL (74-99); Non-African American GFR(CKD) 33 (>60 ml/min/1.73 sqM); Potassium 4.2 mmol/L (3.5-5.1); Sodium 123 mmol/L (137-145)
[2025-03-03 07:45] LABS: Blood Urea Nitrogen 105 mg/dL (7-17)
--- NOTE | 2025-03-03 09:10 | P.PN ---
Subjective Patient is a 55-year-old female with a past medical history of hypertension, hyperlipidemia, diabetes type 2 insulin-dependent, metastatic malignant melanoma with mets to liver and lymph nodes, depression, prior history of smoking, GERD and diabetic peripheral neuropathy and history of SVT, prior history of smoking. Patient presents to ER from Dr. Botello's office due to abnormal labs. Patient was also having generalized weakness. She was in the office for her third infusion. She had blood workup done yesterday which showed multiple abnormalities and was recommended to go to ER. She is also having generalized body pains. Also worsening shortness of breath. No chest pain. She does have decreased appetite and not eating well., No nausea no episodes of vomiting. EKG on admission showed sinus rhythm with heart rate 62 Chest x-ray showed no focal consolidation. Elevation of the right hemidiaphragm which is increased from prior exam. Consider sniff test to evaluate for diaphragmatic paralysis. Laboratory data showed WBC 26.7 hemoglobin 8.8 and platelets 634 MCV 75.3 Sodium 118, potassium 4.1 chloride 93 bicarb is 10 BUN 52 and creatinine 2.96, blood sugar 103 lactic acid 1.1 phosphorus 5.8 alk phos 241 proBNP 2350 lipase 441 Urinalysis showed light yellow turbid with large blood nitrite positive leukocyte esterase large elevated RBCs and WBCs. Influenza A B RSV and COVID-19 PCR not detected. 02/22/2025 Patient is in the MICU. Patient is requiring pressor support with Levophed. Resting in the bed. Awake alert and oriented. Currently on room air. Afebrile overnight. Denied any complaints of nausea vomiting abdominal pain or diarrhea. Lab data showed WBC trending down to 21.7 hemoglobin 8.2 and platelets 0.91 sodium improved to 121 potassium 4.5 chloride 101 bicarb is 6 BUN 54 and creatinine 2.72. Antibiotics were changed to cefazolin 2 g Q12. Nephrology and ID is on board. 02/24/2024 Patient is needing intensive care unit. Awake alert and oriented x 3. Currently on room air. Patient is off pressor support since 5 AM this morning. Sodium level improved to 127 today. Patient is on antibiotics in the form of cefepime. Urine culture showed Proteus Mirabella's. Laboratory data showed WBC 17.7 hemoglobin 7.4 and platelets 505 sodium 123 potassium 3.6 chloride 98 bicarb is 15 BUN 44 and creatinine 1.98, calcium 8.3. 02/24/2025 Patient is in MICU. Ureteric and ovarian x 3. Currently on room air. No c omplaints of chest pain or shortness of breath. Sodium level improved to 127 today. Patient is also been antibiotics for urinary tract infection with ceftriaxone. Urine culture growing Proteus mirabilis. Patient has been afebrile. Patient was given urea 15 g p.o. twice daily. Continued on insulin regimen. Laboratory test showed WBC 16.1 hemoglobin 7.3 and platelets 543 sodium 127 potassium 3.8 chloride 98 bicarb is 15 BUN 4020 creatinine 1.35 and blood sugar 82 magnesium 1.7 albumin 2.4. 02/25/2025 Patient is resting in the bed. Awake alert and oriented. No complaints of chest pain or shortness of breath. Tolerating oral diet. Patient is off IV fluids. He was started on urea and patient was also given Samsca. Sodium level is 126 today. Other laboratory data showed sodium 126 potassium 3.9 chloride 97 bicarb is 19 BUN 56 and creatinine 1.06 and blood sugar 125. Magnesium 1.9. Patient is getting ceftriaxone for urinary tract infection. 02/26 Patient lying in bed comfortable no chest pain or dyspnea No vomiting, she has average appetite No abdominal abdominal pain Patient has ongoing dysuria. 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 As per patient she was getting chemotherapy since November 2024. Her oncologist as outpatient is Dr. Botello. She had 3 cycles of chemotherapy so far. Her Cozaar Aldactone and metformin remain on hold 02/27 Clinically looks the same, awake and alert Main complaint is dysuria which is going on for 1.5 months which looks chronic related to her vaginal mass She is following up with hematology/oncology. Also she follow-up with the surgeon at [facility] with no plans for surgical intervention. Also patient confirms to me that she follow-up with tissue inserter in [place]. She has right foot boot on. She says she has fracture on November 26 and she is going to follow-up with her orthopedic in 1 to 2 weeks after discharge. No other new complaints Vital stable and afebrile. 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 Both of these lesions has progressed today She is developing more signs of infection with hypotension, leukocytosis went up to 19.6. Creatinine went up to 1.8, systolic blood pressure dropped from 140s down to 100 but slightly less. Patient thought secondary to have urinary tract infection and she is on ceftriaxone 2 g. Diflucan with loading dose added today. No respiratory symptoms no abdominal pain or diarrhea. No rash. No other source of infection She is also on Cardizem 120 and metoprolol 50 mg for A-fib. Also she is on Eliquis 2.5 mg. Hemoglobin dropped today to 6.6. With no evidence of bleeding. She is getting unit of blood transfusion. Posttransfusion Lasix was held because of borderline low blood pressure. After the blood pressure improved. Also she has CT of the abdomen and pelvis showing generalized lymphadenopathy and around the aorta and retrocaval as well as along the iliac chain Most likely related to her metastatic disease. There is evidence also of hepatic metastasis, hematology/oncology team on the case. Patient was informed with some of the CT findings as above 03/01 Patient is still feeling lethargic. She has large fullness with a bruise in the lower abdomen, she is morbidly obese and she has already pendulous abdomen, the area is standing in her. Possible bleeding. Hold Eliquis and check abdominal ultrasound She is s/p 1 unit of blood transfusion yesterday, hemoglobin went up 6.6 up to 7.4. She is also on ceftriaxone and Diflucan for suspected UTI She is a known case of malignant melanoma with evidence of metastasis to the abdominal lymphadenopathy and liver. 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 She looks tired and fatigue Hemoglobin stable at 7.6, WBC down to 18,000 creatinine actually went down to 1.6 She is on ceftriaxone Diflucan, Eliquis 2.5 mg scheduled for renal dose and m etoprolol 5 mg Patient advised about fluid restriction Objective - Vital Signs Vital signs: Vital Signs Temp 97.7 F 03/03/25 04:00 Pulse 68 03/03/25 04:00 Resp 16 03/03/25 04:00 BP 110/71 03/03/25 06:22 Pulse Ox 99 03/03/25 04:00 FiO2 Intake & Output 03/02/25 03/03/25 03/03/25 18:59 06:59 18:59 Intake Total 0 490 Output Total 100 Balance -100 490 Weight 149 kg Intake: IV 10 0.9 10 Oral 0 480 Output: Urine 100 Other: Voiding Method Bedside Commode External Catheter # Voids 1 # Bowel Movements 1 - Exam -GENERAL: The patient is alert and oriented x3, not in any acute distress. Well developed, well nourished. Obese HEENT: Pupils are round and equally reacting to light. EOMI. No scleral icterus. No conjunctival pallor. Normocephalic, atraumatic. No pharyngeal erythema. No thyromegaly. CARDIOVASCULAR: S1 and S2 present. No murmurs, rubs, or gallops. PULMONARY: Chest is clear to auscultation, no wheezing , no crackles. ABDOMEN: Soft, nontender, nondistended, normoactive bowel sounds. No palpable organomegaly. MUSCULOSKELETAL: No joint swelling or deformity. EXTREMITIES: No cyanosis, clubbing, or pedal edema. NEUROLOGICAL: Gross neurological examination did not reveal any focal deficits. SKIN: No rashes. no petechiae. - Labs CBC & Chem 7: 03/03/25 06:45 03/03/25 06:45 Labs: Abnormal Lab Results - Last 24 Hours (Table) 03/02/25 03/02/25 03/02/25 Range/Units 06:58 11:30 15:07 WBC 21.30 H (4.50-10.00) 10*3/uL RBC 3.10 L (4.10-5.20) 10*6/uL Hgb 8.3 L (12.0-15.0) g/dL Hct 25.8 L (37.2-46.3) % MCH 26.8 L (27.0-32.0) pg Plt Count 543 H (140-440) 10*3/uL MPV 9.2 L (9.5-12.2) fL Immature Gran # (0.00-0.04) 10*3/uL Neutrophils # (1.80-7.70) 10*3/uL Lymphocytes # (0.90-5.00) 10*3/uL Sodium 129 L (137-145) mmol/L Chloride 94 L (98-107) mmol/L Carbon Dioxide 21 L (22-30) mmol/L BUN 114 H* (7-17) mg/dL Creatinine 1.99 H (0.52-1.04) mg/dL Glucose 67 L (74-99) mg/dL POC Glucose (mg/dL) 117 H (70-110) mg/dL 03/02/25 03/02/25 03/03/25 Range/Units 16:24 16:45 01:55 WBC (4.50-10.00) 10*3/uL RBC (4.10-5.20) 10*6/uL Hgb (12.0-15.0) g/dL Hct (37.2-46.3) % MCH (27.0-32.0) pg Plt Count (140-440) 10*3/uL MPV (9.5-12.2) fL Immature Gran # (0.00-0.04) 10*3/uL Neutrophils # (1.80-7.70) 10*3/uL Lymphocytes # (0.90-5.00) 10*3/uL Sodium (137-145) mmol/L Chloride (98-107) mmol/L Carbon Dioxide (22-30) mmol/L BUN (7-17) mg/dL Creatinine (0.52-1.04) mg/dL Glucose (74-99) mg/dL POC Glucose (mg/dL) 62 L 61 L 61 L (70-110) mg/dL 03/03/25 03/03/25 Range/Units 06:45 06:45 WBC 18.87 H (4.50-10.00) 10*3/uL RBC 2.80 L (4.10-5.20) 10*6/uL Hgb 7.6 L (12.0-15.0) g/dL Hct 23.0 L (37.2-46.3) % MCH (27.0-32.0) pg Plt Count 505 H (140-440) 10*3/uL MPV 9.4 L (9.5-12.2) fL Immature Gran # 0.47 H (0.00-0.04) 10*3/uL Neutrophils # 16.61 H (1.80-7.70) 10*3/uL Lymphocytes # 0.89 L (0.90-5.00) 10*3/uL Sodium 123 L (137-145) mmol/L Chloride 97 L (98-107) mmol/L Carbon Dioxide 20 L (22-30) mmol/L BUN 105 H* (7-17) mg/dL Creatinine 1.69 H (0.52-1.04) mg/dL Glucose (74-99) mg/dL POC Glucose (mg/dL) (70-110) mg/dL Microbiology - Last 24 Hours (Table) 02/27/25 14:09 Blood Culture - Preliminary Blood Assessment and Plan Assessment: Lower abdominal hematoma suspected with severe anemia required unit of blood transfusion on 03/01 Severe hyponatremia with sodium level 118 on admission-hypoosmolar hyponatremia due to decreased oral intake and LISSETTE. Acute kidney injury. Possible ATN. SIADH cannot be excluded due to underlying malignancy. Creatinine 2.96 on admission baseline 1.0 Non-anion gap metabolic acidosis Acute urinary tract infection with Proteus Mirabella's. Mild pancreatitis with lipase level 441 Malignant melanoma with mets to liver and lymph nodes, generalized intra- abdominal lymphadenopathy and hepatic metastasis. On chemoinfusion and is on follow-up with oncology. Diabetes type 2 insulin-dependent Diabetic peripheral neuropathy History of SVT Paroxysmal atrial fibrillation Osteoarthritis Hypertension Hyperlipidemia GERD Depression Prior history of smoking Microcytic anemia rule out iron deficiency. Hemoglobin 8.8 on admission morbid obesity Plan: Patient put back on Eliquis at last office 2.5 mg Continue with ceftriaxone and Diflucan as per ID team on the pillowcase folder sodium level, improving slowly and gradually. Patient received blood transfusion and IV fluid Monitor creatinine Nephrology team consult Critical care team consult sign of the case on 03/02 Hematology/oncology team consult Continue holding metformin, Aldactone and Cozaar Hematology/oncology team on the case GI prophylaxis: Protonix DVT prophylaxis: Eliquis, currently on hold Physical therapist recommended home versus subacute rehab Prognosis is guarded
[2025-03-03] MEDS ORDERED: CALCIUM CARBONATE 500 MG CHEWABLE PO PRN (09:11)
[2025-03-03] MEDS: SODIUM CHLORIDE TAB 1 GM TAB PO STA (10:56)
--- NOTE | 2025-03-03 11:02 | P.PN ---
Subjective Patient is seen for follow-up for acute kidney injury and hyponatremia. Renal function had been worsening over the last few days but improved today. Serum creatinine decreased to 1.69 today. Serum sodium 123 today. Nausea slightly improved Objective - Vital Signs Vital signs: Vital Signs Temp 97.7 F 03/03/25 09:28 Pulse 66 03/03/25 09:28 Resp 16 03/03/25 09:28 BP 109/69 03/03/25 09:28 Pulse Ox 99 03/03/25 09:28 FiO2 Intake & Output 03/02/25 03/03/25 03/03/25 18:59 06:59 18:59 Intake Total 0 490 Output Total 100 Balance -100 490 Weight 149 kg Intake: IV 10 0.9 10 Oral 0 480 Output: Urine 100 Other: Voiding Method Bedside Commode External Catheter External Catheter # Voids 1 1 # Bowel Movements 1 1 - Exam Patient is awake, comfortable, no acute distress. Examination of the heart S1 and S2 Examination of the lungs bilateral breath sounds are heard Abdomen is soft obese Examination of lower extremities shows 1+ edema right leg, no edema left leg - Labs CBC & Chem 7: 03/03/25 06:45 03/03/25 06:45 Labs: Abnormal Lab Results - Last 24 Hours (Table) 03/02/25 03/02/25 03/02/25 Range/Units 06:58 11:30 15:07 WBC 21.30 H (4.50-10.00) 10*3/uL RBC 3.10 L (4.10-5.20) 10*6/uL Hgb 8.3 L (12.0-15.0) g/dL Hct 25.8 L (37.2-46.3) % MCH 26.8 L (27.0-32.0) pg Plt Count 543 H (140-440) 10*3/uL MPV 9.2 L (9.5-12.2) fL Immature Gran # (0.00-0.04) 10*3/uL Neutrophils # (1.80-7.70) 10*3/uL Lymphocytes # (0.90-5.00) 10*3/uL Sodium 129 L (137-145) mmol/L Chloride 94 L (98-107) mmol/L Carbon Dioxide 21 L (22-30) mmol/L BUN 114 H* (7-17) mg/dL Creatinine 1.99 H (0.52-1.04) mg/dL Glucose 67 L (74-99) mg/dL POC Glucose (mg/dL) 117 H (70-110) mg/dL 03/02/25 03/02/25 03/03/25 Range/Units 16:24 16:45 01:55 WBC (4.50-10.00) 10*3/uL RBC (4.10-5.20) 10*6/uL Hgb (12.0-15.0) g/dL Hct (37.2-46.3) % MCH (27.0-32.0) pg Plt Count (140-440) 10*3/uL MPV (9.5-12.2) fL Immature Gran # (0.00-0.04) 10*3/uL Neutrophils # (1.80-7.70) 10*3/uL Lymphocytes # (0.90-5.00) 10*3/uL Sodium (137-145) mmol/L Chloride (98-107) mmol/L Carbon Dioxide (22-30) mmol/L BUN (7-17) mg/dL Creatinine (0.52-1.04) mg/dL Glucose (74-99) mg/dL POC Glucose (mg/dL) 62 L 61 L 61 L (70-110) mg/dL 03/03/25 03/03/25 Range/Units 06:45 06:45 WBC 18.87 H (4.50-10.00) 10*3/uL RBC 2.80 L (4.10-5.20) 10*6/uL Hgb 7.6 L (12.0-15.0) g/dL Hct 23.0 L (37.2-46.3) % MCH (27.0-32.0) pg Plt Count 505 H (140-440) 10*3/uL MPV 9.4 L (9.5-12.2) fL Immature Gran # 0.47 H (0.00-0.04) 10*3/uL Neutrophils # 16.61 H (1.80-7.70) 10*3/uL Lymphocytes # 0.89 L (0.90-5.00) 10*3/uL Sodium 123 L (137-145) mmol/L Chloride 97 L (98-107) mmol/L Carbon Dioxide 20 L (22-30) mmol/L BUN 105 H* (7-17) mg/dL Creatinine 1.69 H (0.52-1.04) mg/dL Glucose (74-99) mg/dL POC Glucose (mg/dL) (70-110) mg/dL Microbiology - Last 24 Hours (Table) 02/27/25 14:09 Blood Culture - Preliminary Blood Assessment and Plan Assessment: 1. 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 Urine osmolality 252. Sodium 123 this morning. Status post sodium chloride tab. Cortisol level high. TSH normal. Urine osmolality 252. Status post Samsca on 02/25/2025 2. Malignant melanoma with metastatic disease to liver and lymph nodes. 3. Acute kidney injury secondary to ATN secondary to severe sepsis. Baseline creatinine near 1 from December 2024. Creatinine 2.96 on admission and improved to 1.06 - now worsening again due to acute blood loss anemia. 4. UTI on antibiotics. Urine culture positive for Proteus. 5. Metabolic acidosis secondary to acute kidney injury and IV fluids. Was also on metformin. On oral bicarb. 6. Diabetes mellitus. 7. Anemia. Iron deficiency noted. s/p IV iron. Having vaginal bleeding. Hemoglobin 7.6 today. 8. Mild volume overload. Plan: Repeat sodium chloride tabs today May continue with urea Continue midodrine Continue with oral sodium bicarb
[2025-03-03 11:36] LABS: Glucose,Whole Blood 112 mg/dL (70-110)
[2025-03-03] MEDS: INSULIN LISPRO (HumaLOG) 100 UNIT/ML 10 mL VL SQ SCH (12:03)
[2025-03-03] MEDS: SCOPOLAMINE 1 MG/72 HR PATCH TRANSDERM SCH (13:03)
[2025-03-03] MEDS: PROCHLORPERAZINE INJ 10 MG/2 ML VIAL IVP STA (15:15)
--- NOTE | 2025-03-03 15:28 | P.PN ---
Subjective Progress Note Date: 03/03/25 Principal diagnosis: Acute sepsis secondary to UTI secondary to Klebsiella pneumonia This is a pleasant 55-year-old female patient with a known history of diabetes melitis, type II, hypertension, hyperlipidemia, former smoker, peripheral neuropathy, SVT. She also has a history of metastatic malignant melanoma with mets to the liver and lymph nodes. She was in Dr. Botello's office yesterday for her third infusion of chemotherapy and was found to have abnormal labs and the patient also had generalized weakness. She was referred to the ER for the same. She was found to have a sodium of 118 and was initiated on 3% saline and admitted to the intensive care unit. She is seen today in consultation. She is awake and alert. Quite weak. Maintaining good O2 saturations up to 100% on room air. She briefly required norepinephrine for hypotension. The most recent sodium was 122. 3% saline is on pause. She has a sodium bicarbonate drip at 75 mL/h. Anticoagulated with Eliquis. White count 21.7. Hemoglobin 8.2. Platelets 591. Potassium 4.5. Bicarb 6. BUN 54. Creatinine 2.72. Glucose 65. Chest x-ray shows no focal consolidation. Some elevation in the right hem idiaphragm. The patient is seen today February 23, 2025 in follow-up in the intensive care unit. She is currently sitting up in bed. Awake and alert in no acute distress. Maintaining O2 saturations in the 90s on room air. She has been off norepinephrine since 5 AM this morning. She is receiving 0.45 normal saline with 2 A of bicarb at 75 mL/h. Her current sodium is 123. Potassium 3.6. Bicarb 15. BUN 44. Creatinine 1.98. Glucose 82. White count 17.7. Hemoglobin 7.4. Platelets 505. She is anticoagulated with Eliquis. She remains on cefazolin. On 02/24/2025, the patient is doing well the patient is recovering from acute septic event related to an underlying urinary tract infection. The patient had an acute kidney injury, she was hypotensive and she was also hyponatremic. The patient was taken off the hypertonic saline solution. Sodium level is gradually improving is currently up to 127 from a baseline of 118. LISSETTE is also improving and the creatinine is down to 1.3. The patient is awake and alert and communicating. She remains on IV Rocephin. She was found to have iron deficiency anemia and the patient was given IV iron. On her blood work, the patient continues to have a component of an anion gap metabolic acidosis. The patient was started on oral bicarb. Serum bicarbonate 15, sodium levels at 127 with a potassium level of 3.9. Chloride is 99, WBC count 16.1 with a hemoglobin 7.3 and a platelet count of 543. The patient otherwise remains on long-term an ticoagulation with Eliquis. The patient is known to have metastatic melanoma, treated with immunotherapy in outpatient basis. Patient is also on Lantus insulin 50 units and sliding scale coverage. She is diabetic. She has hypertension hyperlipidemia and peripheral neuropathy. Anticoagulation was given for paroxysmal atrial fibrillation. On 02/25/2025, the patient has no specific complaints. Doing well. Awake and alert send the patient is currently on room air oxygen. Blood work from today shows a sodium level of 126, serum bicarbonate 19, BUN 56 with a creatinine of 1.06. The patient had a white cell count from yesterday that was down to 16.1 and a hemoglobin of 7.3. Nephrology on the case regarding his ongoing hyponatremia. The patient remains on IV Rocephin regarding a Proteus mirabilis urinary tract infection. She is afebrile and she is hemodynamically stable. The patient will be given a dose of Samsca by nephrology. Remains on oral bicarb. Remains on IV iron. She remains on anticoagulation regarding paroxysmal atrial fibrillation. She is diabetic and she is known to have hypertension hyperlipidemia and peripheral neuropathy. Remains on Lantus insulin 50 units daily. On 02/26/2025, the patient is being seen for a follow-up. The patient remains on room air oxygen. Very low energy and stamina the patient refused to get out of bed. She remains on room air oxygen she denies having any significant respite distress. The patient's sodium level is up to 129. Serum bicarb is up to 21. BUN is 59 with a creatinine of 1.07. White second 16.8 with a hemoglobin of 7.4. Noted, there has been no significant drop in hemoglobin and the patient seems to be chronically anemic. She has Proteus mirabilis in the urine and patient remains on IV Rocephin. No other significant events overnight and the patient will be transferred out of the intensive care unit yesterday. Noted the patient received a dose of Samsca yesterday and sodium level improved further. Hemodynamically stable. Tolerating diet. On 02/27/2025, the patient got transferred to the medical floor. The patient was in the ICU earlier and she got transferred out of the intensive care yesterday. She remains on IV Rocephin for a Proteus mirabilis urinary tract infection. Hemodynamically stable. White cell count of 22 with a hemoglobin 7.3. Sodium levels at 129, creatinine is 1.35 with a BUN of 73 and serum bicarb is at 22. Patient is still being seen by nephrology. She is on clear liquid diet. She is complaining of some limited nausea this morning. No signs of any respiratory d istress and she remains on room air oxygen. She was able to sit up on a chair yesterday. The patient was given lactated ringer r by nephrology at rate of 75 cc an hour. Rest of the medication remain unchanged. Remains on oral bicarb. Given Reglan and Zofran for nausea. A On 02/28/2025, the patient remains out of the intensive care that the patient is completing her treatment with sepsis. She also had other comorbidities including hyponatremia and acute kidney injury for which the patient is being seen by nephrology. On today's blood work, the patient was noted to have worsening in the hemoglobin and a drop in hemoglobin was noted down to 6.6. The white cell count was at 19.6. There is also interval worsening renal function with a BUN of 89 and a creatinine of 1.2. Sodium level is also dropped down to 124. Nephrology on the case and the patient was given a dose of Samsca. The patient will be also receiving a unit of packed RBC. No evidence of any GI bleeding. Her anemia seems to be more solid chronic in nature. She remains hemodynamically stable. She remains on room air oxygen. The patient got transferred out of the intensive care unit 48 hours ago. 03/01/2025, the patient is still weak and lethargic. Hemodynamically stable. She received a total of 1 unit of packed RBC for hemoglobin of 6.6 and her hemoglobin currently is at 7.4. She remains on a combination of Rocephin and Diflucan regarding an underlying Proteus mirabilis urinary tract infection. The white cell count remains elevated at 24.5 with hemoglobin 7.2. Sodium level remains low at 124, and the patient has sustained an acute kidney injury with a BUN of 107 and a creatinine of 2.08. Obviously, the creatinine is again on the rise. The patient is morbidly obese. She is metastatic melanoma. She was hospitalized for an acute UTI and sepsis that was treated in the intensive care unit. She is also known to have diabetes mellitus type 2, hypertension hyperlipidemia in addition to peripheral neuropathy related to diabetes mellitus. The patient is under the care of the medical team. Nephrology on the case regarding his ongoing hyponatremia and the renal failure. She did receive a bolus of 500 cc of normal saline yesterday. The patient is currently on room air oxygen. Seen today on 03/03/2025, patient is doing well, she has no active pulmonary symptoms. No cough no wheezing no shortness of breath, patient is relatively asymptomatic, she does have some vague lower abdominal pain. Patient is on room air, her sodium remains low at 123 being addressed by nephrology BUN is 105 creat 1.69 hemoglobin is 7.6 Objective - Vital Signs Vital signs: Vital Signs Temp 97.7 F 03/03/25 11:00 Pulse 64 03/03/25 13:39 Resp 18 03/03/25 11:00 BP 106/54 03/03/25 11:00 Pulse Ox 98 03/03/25 11:00 FiO2 Intake & Output 03/02/25 03/03/25 03/03/25 18:59 06:59 18:59 Intake Total 0 490 Output Total 100 200 Balance -100 490 -200 Weight 149 kg Intake: IV 10 0.9 10 Oral 0 480 Output: Urine 100 200 Other: Voiding Method Bedside Commode External Catheter External Catheter # Voids 1 1 # Bowel Movements 1 1 - Exam GENERAL: Revealed 55-year-old female obese in no distress HEENT: Pupils are round and equally reacting to light. EOMI. No scleral icterus. No conjunctival pallor. Normocephalic, atraumatic. No pharyngeal erythema. No thyromegaly. CARDIOVASCULAR: S1 and S2 present. No murmurs, rubs, or gallops. PULMONARY: Clear throughout no crackles rhonchi or wheezes ABDOMEN: Soft, nontender, nondistended, normoactive bowel sounds. No palpable organomegaly. MUSCULOSKELETAL: No joint swelling or deformity. EXTREMITIES: No cyanosis, clubbing, or pedal edema. NEUROLOGICAL: Alert oriented x 3 no gross focal deficits SKIN: No rashes. no petechiae. Psychiatric: Normal mood affect and no mental status examination - Labs CBC & Chem 7: 03/03/25 06:45 03/03/25 06:45 Labs: Abnormal Lab Results - Last 24 Hours (Table) 03/02/25 03/02/25 03/02/25 Range/Units 15:07 16:24 16:45 WBC 21.30 H (4.50-10.00) 10*3/uL RBC 3.10 L (4.10-5.20) 10*6/uL Hgb 8.3 L (12.0-15.0) g/dL Hct 25.8 L (37.2-46.3) % MCH 26.8 L (27.0-32.0) pg Plt Count 543 H (140-440) 10*3/uL MPV 9.2 L (9.5-12.2) fL Immature Gran # (0.00-0.04) 10*3/uL Neutrophils # (1.80-7.70) 10*3/uL Lymphocytes # (0.90-5.00) 10*3/uL Sodium (137-145) mmol/L Chloride (98-107) mmol/L Carbon Dioxide (22-30) mmol/L BUN (7-17) mg/dL Creatinine (0.52-1.04) mg/dL POC Glucose (mg/dL) 62 L 61 L (70-110) mg/dL 03/03/25 03/03/25 03/03/25 Range/Units 01:55 06:45 06:45 WBC 18.87 H (4.50-10.00) 10*3/uL RBC 2.80 L (4.10-5.20) 10*6/uL Hgb 7.6 L (12.0-15.0) g/dL Hct 23.0 L (37.2-46.3) % MCH (27.0-32.0) pg Plt Count 505 H (140-440) 10*3/uL MPV 9.4 L (9.5-12.2) fL Immature Gran # 0.47 H (0.00-0.04) 10*3/uL Neutrophils # 16.61 H (1.80-7.70) 10*3/uL Lymphocytes # 0.89 L (0.90-5.00) 10*3/uL Sodium 123 L (137-145) mmol/L Chloride 97 L (98-107) mmol/L Carbon Dioxide 20 L (22-30) mmol/L BUN 105 H* (7-17) mg/dL Creatinine 1.69 H (0.52-1.04) mg/dL POC Glucose (mg/dL) 61 L (70-110) mg/dL 03/03/25 Range/Units 11:35 WBC (4.50-10.00) 10*3/uL RBC (4.10-5.20) 10*6/uL Hgb (12.0-15.0) g/dL Hct (37.2-46.3) % MCH (27.0-32.0) pg Plt Count (140-440) 10*3/uL MPV (9.5-12.2) fL Immature Gran # (0.00-0.04) 10*3/uL Neutrophils # (1.80-7.70) 10*3/uL Lymphocytes # (0.90-5.00) 10*3/uL Sodium (137-145) mmol/L Chloride (98-107) mmol/L Carbon Dioxide (22-30) mmol/L BUN (7-17) mg/dL Creatinine (0.52-1.04) mg/dL POC Glucose (mg/dL) 112 H (70-110) mg/dL Microbiology - Last 24 Hours (Table) 02/27/25 14:09 Blood Culture - Preliminary Blood Assessment and Plan Assessment: Impression: Acute sepsis, likely secondary underlying urine tract infection. Urine cultures positive for Klebsiella pneumoniae and the patient remains on IV Rocephin. Hemodynamically stable on no pressors. The white cell count remains elevated. Acute leukocytosis, secondary to above, white cell count remains elevated Acute kidney injury, secondary to sepsis Acute hyponatremia likely secondary acute kidney injury and sepsis. Being addressed by nephrology Acute on chronic anemia with a drop in hemoglobin down to 6.6, transfused 2 units of packed RBC and hemoglobin is up to 7.4 Morbid obesity with a BMI of 48.5 Malignant melanoma with metastatic disease to the liver and lymph nodes, received 3 cycles of Opdualag thus far. The patient has a pelvic mass/vaginal mass consistent with melanoma. Metabolic acidosis secondary to above, essentially anion gap metabolic acidosis and the patient is currently on oral bicarb. Serum bicarb is improving and the patient remains on oral bicarbonate replacement. Urinary tract infection secondary to gram-negative bacilli, cultures are positive for Proteus mirabilis Paroxysmal A-fib, currently on anticoagulation with Eliquis. Cardiac rhythm is sinus. Iron deficiency anemia, currently on IV iron Diabetes mellitus type 2, currently on Lantus insulin. Morbid obesity BMI 47 Recommendation: Continue present supportive care measures Patient is being followed by many consultants Remains on IV antibiotics Remains on oral bicarb Remains on Eliquis Will sign off and follow-up with the patient as needed Time with Patient: Less than 30
--- NOTE | 2025-03-03 16:14 | P.PN ---
Subjective Progress Note Date: 03/03/25 Patient reporting n/v thats worse with movement. AC has been held due to abdominal hematoma noted on US. Hgb 7.6 today. Objective - Vital Signs Vital signs: Vital Signs Temp 97.7 F 03/03/25 09:28 Pulse 66 03/03/25 09:28 Resp 16 03/03/25 09:28 BP 109/69 03/03/25 09:28 Pulse Ox 99 03/03/25 09:28 FiO2 Intake & Output 03/02/25 03/03/25 03/03/25 18:59 06:59 18:59 Intake Total 0 490 Output Total 100 Balance -100 490 Weight 149 kg Intake: IV 10 0.9 10 Oral 0 480 Output: Urine 100 Other: Voiding Method Bedside Commode External Catheter External Catheter # Voids 1 1 # Bowel Movements 1 1 - Constitutional General appearance: Present: no acute distress, obese - EENT Eyes: Present: anicteric sclerae, EOMI ENT: Present: hearing grossly normal - Respiratory Details: breathing is even and unlabored - Cardiovascular Details: skin warm and dry - Gastrointestinal General gastrointestinal: Present: soft. Absent: tenderness - Integumentary Integumentary: Absent: cyanotic, jaundiced - Musculoskeletal Musculoskeletal: Present: generalized weakness - Psychiatric Psychiatric: Present: A&O x's 3 - Labs CBC & Chem 7: 03/03/25 06:45 03/03/25 06:45 Labs: Abnormal Lab Results - Last 24 Hours (Table) 03/02/25 03/02/25 03/02/25 Range/Units 15:07 16:24 16:45 WBC 21.30 H (4.50-10.00) 10*3/uL RBC 3.10 L (4.10-5.20) 10*6/uL Hgb 8.3 L (12.0-15.0) g/dL Hct 25.8 L (37.2-46.3) % MCH 26.8 L (27.0-32.0) pg Plt Count 543 H (140-440) 10*3/uL MPV 9.2 L (9.5-12.2) fL Immature Gran # (0.00-0.04) 10*3/uL Neutrophils # (1.80-7.70) 10*3/uL Lymphocytes # (0.90-5.00) 10*3/uL Sodium (137-145) mmol/L Chloride (98-107) mmol/L Carbon Dioxide (22-30) mmol/L BUN (7-17) mg/dL Creatinine (0.52-1.04) mg/dL POC Glucose (mg/dL) 62 L 61 L (70-110) mg/dL 03/03/25 03/03/25 03/03/25 Range/Units 01:55 06:45 06:45 WBC 18.87 H (4.50-10.00) 10*3/uL RBC 2.80 L (4.10-5.20) 10*6/uL Hgb 7.6 L (12.0-15.0) g/dL Hct 23.0 L (37.2-46.3) % MCH (27.0-32.0) pg Plt Count 505 H (140-440) 10*3/uL MPV 9.4 L (9.5-12.2) fL Immature Gran # 0.47 H (0.00-0.04) 10*3/uL Neutrophils # 16.61 H (1.80-7.70) 10*3/uL Lymphocytes # 0.89 L (0.90-5.00) 10*3/uL Sodium 123 L (137-145) mmol/L Chloride 97 L (98-107) mmol/L Carbon Dioxide 20 L (22-30) mmol/L BUN 105 H* (7-17) mg/dL Creatinine 1.69 H (0.52-1.04) mg/dL POC Glucose (mg/dL) 61 L (70-110) mg/dL 03/03/25 Range/Units 11:35 WBC (4.50-10.00) 10*3/uL RBC (4.10-5.20) 10*6/uL Hgb (12.0-15.0) g/dL Hct (37.2-46.3) % MCH (27.0-32.0) pg Plt Count (140-440) 10*3/uL MPV (9.5-12.2) fL Immature Gran # (0.00-0.04) 10*3/uL Neutrophils # (1.80-7.70) 10*3/uL Lymphocytes # (0.90-5.00) 10*3/uL Sodium (137-145) mmol/L Chloride (98-107) mmol/L Carbon Dioxide (22-30) mmol/L BUN (7-17) mg/dL Creatinine (0.52-1.04) mg/dL POC Glucose (mg/dL) 112 H (70-110) mg/dL Microbiology - Last 24 Hours (Table) 02/27/25 14:09 Blood Culture - Preliminary Blood - Imaging and Cardiology CT scan - abdomen: report reviewed CT scan - pelvis: report reviewed US - abdomen: report reviewed Assessment and Plan (1) LISSETTE (acute kidney injury) Current Visit: Yes Status: Acute Code(s): N17.9 - ACUTE KIDNEY FAILURE, UNSPECIFIED SNOMED Code(s): 16633182 (2) Hyponatremia Current Visit: Yes Status: Acute Code(s): E87.1 - HYPO-OSMOLALITY AND HYPONATREMIA SNOMED Code(s): 40747221 (3) Sepsis Current Visit: Yes Status: Acute Code(s): A41.9 - SEPSIS, UNSPECIFIED ORGANISM SNOMED Code(s): 63639181 (4) Melanoma Current Visit: Yes Status: Acute Priority: High Code(s): C43.9 - MALIGNANT MELANOMA OF SKIN, UNSPECIFIED SNOMED Code(s): 963704425 Plan: #Septic shock secondary to UTI - Improved with antibiotics along with supportive care with IV fluids and Levophed - Continues on ceftriaxone per infectious disease - Repeat urine and blood cultures due to leukocytosis on 02/27/2025 were negative #Hyponatremia - Seen by nephrology and has received Samsca during this admission - 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 Continue to monitor CBC #Metastatic melanoma - Received 3 cycles of Opdualag with the most recent on 02/17/2025 - CT abdomen/pelvis inpatient revealed known metastases to the liver and a bdominal/iliac lymphadenopathy. This scan was also compared to scans obtained in November 2023, as her PET CT prior to initiation of treatment was obtained at [facility] and was not used for comparison, so we would not consider this treatment failure at this time. We will plan on repeating PET/CT outpatient to assess response to immunotherapy
[2025-03-03 16:42] LABS: Glucose,Whole Blood 107 mg/dL (70-110)
[2025-03-03 20:46] LABS: Glucose,Whole Blood 119 mg/dL (70-110)
[2025-03-04 03:20] LABS: Glucose,Whole Blood 95 mg/dL (70-110)
[2025-03-04 06:43] LABS: Glucose,Whole Blood 149 mg/dL (70-110)
[2025-03-04] MEDS: PROCHLORPERAZINE INJ 10 MG/2 ML VIAL IVP PRN (07:15)
--- NOTE | 2025-03-04 07:50 | P.PN ---
Subjective Progress Note Date: 03/02/25 Principal diagnosis: Reason for follow-up is sepsis and UTI Patient is a 55-year-old female with a past medical history significant for stage IV malignant melanoma on chemo, Diabetes Mellitus, GERD/Reflux, Hyperlipidemia, Hypertension, Osteoarthritis (OA) presenting to the hospital for evaluation of generalized weakness did have urinary symptoms a positive UA concerning for symptomatic UTI with sepsis requiring admission by ICU. On today's evaluation that is 03/02/2025, patient has been afebrile, patient is breathing comfortably and is currently on room air, patient denies having any chest pain and cough, patient has been complaining of some nausea and vomiting as well as pain in the lower abdominal area. Patient white count is about the same as yesterday 21.30 creatinine is 1.99 Objective - Vital Signs Vital signs: Vital Signs Temp 98.1 F 03/02/25 11:33 Pulse 71 03/02/25 11:33 Resp 18 03/02/25 11:33 BP 117/74 03/02/25 11:33 Pulse Ox 99 03/02/25 11:33 FiO2 Intake & Output 03/01/25 03/02/25 03/02/25 18:59 06:59 18:59 Intake Total 598 310 0 Output Total 180 100 Balance 418 310 -100 Weight 149 kg Intake: Oral 598 0 Blood Product 310 Rc As-1 Unit 310 [id number] Output: Urine 180 100 Other: Voiding Method Bedside Commode Bedside Commode Bedside Commode # Voids 1 1 - Exam GENERAL DESCRIPTION: A middle-age female lying in bed in no distress RESPIRATORY SYSTEM: Unlabored breathing , decreased breath sounds at bases HEART: S1 S2 regular rate and rhythm , ABDOMEN: Soft , no tenderness EXTREMITIES: No edema feet - Labs CBC & Chem 7: 03/03/25 06:45 03/03/25 06:45 Labs: Abnormal Lab Results - Last 24 Hours (Table) 02/28/25 03/01/25 03/01/25 Range/Units 09:18 15:59 18:51 WBC (4.50-10.00) 10*3/uL RBC (4.10-5.20) 10*6/uL Hgb (12.0-15.0) g/dL Hct (37.2-46.3) % MCH (27.0-32.0) pg MCHC (32.0-37.0) g/dL Plt Count (140-440) 10*3/uL MPV (9.5-12.2) fL Immature Gran # (0.00-0.04) 10*3/uL Neutrophils # (1.80-7.70) 10*3/uL Eosinophils # (0.04-0.35) 10*3/uL Sodium 121 L (137-145) mmol/L Chloride (98-107) mmol/L Carbon Dioxide (22-30) mmol/L BUN (7-17) mg/dL Creatinine (0.52-1.04) mg/dL Glucose (74-99) mg/dL POC Glucose (mg/dL) 124 H (70-110) mg/dL Crossmatch See Detail 03/01/25 03/01/25 03/01/25 Range/Units 18:51 20:18 23:50 WBC 22.55 H 21.23 H (4.50-10.00) 10*3/uL RBC 2.61 L 2.82 L (4.10-5.20) 10*6/uL Hgb 6.8 L* 7.7 L (12.0-15.0) g/dL Hct 21.1 L 23.4 L (37.2-46.3) % MCH 26.1 L (27.0-32.0) pg MCHC (32.0-37.0) g/dL Plt Count 474 H 501 H (140-440) 10*3/uL MPV 9.2 L 9.3 L (9.5-12.2) fL Immature Gran # 0.95 H 0.86 H (0.00-0.04) 10*3/uL Neutrophils # 19.68 H 18.14 H (1.80-7.70) 10*3/uL Eosinophils # (0.04-0.35) 10*3/uL Sodium (137-145) mmol/L Chloride (98-107) mmol/L Carbon Dioxide (22-30) mmol/L BUN (7-17) mg/dL Creatinine (0.52-1.04) mg/dL Glucose (74-99) mg/dL POC Glucose (mg/dL) 164 H (70-110) mg/dL Crossmatch 03/02/25 03/02/2503/02/25 Range/Units 02:18 06:58 06:58 WBC 20.14 H (4.50-10.00) 10*3/uL RBC 2.77 L (4.10-5.20) 10*6/uL Hgb 7.3 L (12.0-15.0) g/dL Hct 22.9 L (37.2-46.3) % MCH 26.4 L (27.0-32.0) pg MCHC 31.9 L (32.0-37.0) g/dL Plt Count 462 H (140-440) 10*3/uL MPV 9.2 L (9.5-12.2) fL Immature Gran # 0.80 H (0.00-0.04) 10*3/uL Neutrophils # 17.30 H (1.80-7.70) 10*3/uL Eosinophils # 0.38 H (0.04-0.35) 10*3/uL Sodium 129 L (137-145) mmol/L Chloride 94 L (98-107) mmol/L Carbon Dioxide 21 L (22-30) mmol/L BUN 114 H* (7-17) mg/dL Creatinine 1.99 H (0.52-1.04) mg/dL Glucose 67 L (74-99) mg/dL POC Glucose (mg/dL) 118 H (70-110) mg/dL Crossmatch 03/02/25 03/02/25 Range/Units 11:30 15:07 WBC 21.30 H (4.50-10.00) 10*3/uL RBC 3.10 L (4.10-5.20) 10*6/uL Hgb 8.3 L (12.0-15.0) g/dL Hct 25.8 L (37.2-46.3) % MCH 26.8 L (27.0-32.0) pg MCHC (32.0-37.0) g/dL Plt Count 543 H (140-440) 10*3/uL MPV 9.2 L (9.5-12.2) fL Immature Gran # (0.00-0.04) 10*3/uL Neutrophils # (1.80-7.70) 10*3/uL Eosinophils # (0.04-0.35) 10*3/uL Sodium (137-145) mmol/L Chloride (98-107) mmol/L Carbon Dioxide (22-30) mmol/L BUN (7-17) mg/dL Creatinine (0.52-1.04) mg/dL Glucose (74-99) mg/dL POC Glucose (mg/dL) 117 H (70-110) mg/dL Crossmatch Microbiology - Last 24 Hours (Table) 02/27/25 14:09 Blood Culture - Preliminary Blood Assessment and Plan (1) Sepsis Current Visit: Yes Status: Acute Code(s): A41.9 - SEPSIS, UNSPECIFIED ORGANISM SNOMED Code(s): 87604963 (2) LISSETTE (acute kidney injury) Current Visit: Yes Status: Acute Code(s): N17.9 - ACUTE KIDNEY FAILURE, UNSPECIFIED SNOMED Code(s): 09119507 (3) UTI (urinary tract infection) Current Visit: Yes Status: Acute Code(s): N39.0 - URINARY TRACT INFECTION, SITE NOT SPECIFIED SNOMED Code(s): 46726451 (4) Leukocytosis Current Visit: Yes Status: Acute Code(s): D72.829 - ELEVATED WHITE BLOOD CELL COUNT, UNSPECIFIED SNOMED Code(s): 287820230 Plan: 1patient presented hospital with sepsis in this patient who did have tachycardia hypotension elevated white count meeting criteria for SIRS/sepsis source likely urinary in this patient has significantly positive UA along with urinary symptoms likely from enteric gram-negative pathogen keeping in mind history of cancer on chemo will need to cover for resistant gram-negative pathogen 2-patient is afebrile however noticed to have worsening of her white count for the patient have a CT of abdominal pelvis mention worsening lymphadenopathy and concern for hepatic metastasis right lower abdominal wall hematoma, currently waiting for evaluation by hematology oncology follow-up continue with Benito Dictation was produced using [employer] dictation software. please excuse any grammatical, word or spelling errors. Time with Patient: Less than 30
--- NOTE | 2025-03-04 07:52 | P.PN ---
Subjective Progress Note Date: 03/03/25 Principal diagnosis: Reason for follow-up is sepsis and UTI Patient is a 55-year-old female with a past medical history significant for stage IV malignant melanoma on chemo, Diabetes Mellitus, GERD/Reflux, Hyperlipidemia, Hypertension, Osteoarthritis (OA) presenting to the hospital for evaluation of generalized weakness did have urinary symptoms a positive UA concerning for symptomatic UTI with sepsis requiring admission by ICU. On today's evaluation that is 03/03/2025, Patient is afebrile this morning patient denies having any chest pain shortness of breath or cough, the patient is currently on room air, patient has been complaining of lower abdominal discomfort along with nausea but no further vomiting. Patient white count is down to 18.87 creatinine is 1.69 blood and repeat urine culture so far negative Objective - Vital Signs Vital signs: Vital Signs Temp 97.7 F 03/03/25 11:00 Pulse 64 03/03/25 11:00 Resp 18 03/03/25 11:00 BP 106/54 03/03/25 11:00 Pulse Ox 98 03/03/25 11:00 FiO2 Intake & Output 03/02/25 03/03/25 03/03/25 18:59 06:59 18:59 Intake Total 0 490 Output Total 100 Balance -100 490 Weight 149 kg Intake: IV 10 0.9 10 Oral 0 480 Output: Urine 100 Other: Voiding Method Bedside Commode External Catheter External Catheter # Voids 1 1 # Bowel Movements 1 1 - Exam GENERAL DESCRIPTION: A middle-age female lying in bed in no distress RESPIRATORY SYSTEM: Unlabored breathing , decreased breath sounds at bases HEART: S1 S2 regular rate and rhythm , ABDOMEN: Soft , lower abdominal wall bruising hematoma EXTREMITIES: No edema feet - Labs CBC & Chem 7: 03/03/25 06:45 03/03/25 06:45 Labs: Abnormal Lab Results - Last 24 Hours (Table) 03/02/25 03/02/25 03/02/25 Range/Units 15:07 16:24 16:45 WBC 21.30 H (4.50-10.00) 10*3/uL RBC 3.10 L (4.10-5.20) 10*6/uL Hgb 8.3 L (12.0-15.0) g/dL Hct 25.8 L (37.2-46.3) % MCH 26.8 L (27.0-32.0) pg Plt Count 543 H (140-440) 10*3/uL MPV 9.2 L (9.5-12.2) fL Immature Gran # (0.00-0.04) 10*3/uL Neutrophils # (1.80-7.70) 10*3/uL Lymphocytes # (0.90-5.00) 10*3/uL Sodium (137-145) mmol/L Chloride (98-107) mmol/L Carbon Dioxide (22-30) mmol/L BUN (7-17) mg/dL Creatinine (0.52-1.04) mg/dL POC Glucose (mg/dL) 62 L 61 L (70-110) mg/dL 03/03/25 03/03/25 03/03/25 Range/Units 01:55 06:45 06:45 WBC 18.87 H (4.50-10.00) 10*3/uL RBC 2.80 L (4.10-5.20) 10*6/uL Hgb 7.6 L (12.0-15.0) g/dL Hct 23.0 L (37.2-46.3) % MCH (27.0-32.0) pg Plt Count 505 H (140-440) 10*3/uL MPV 9.4 L (9.5-12.2) fL Immature Gran # 0.47 H (0.00-0.04) 10*3/uL Neutrophils # 16.61 H (1.80-7.70) 10*3/uL Lymphocytes # 0.89 L (0.90-5.00) 10*3/uL Sodium 123 L (137-145) mmol/L Chloride 97 L (98-107) mmol/L Carbon Dioxide 20 L (22-30) mmol/L BUN 105 H* (7-17) mg/dL Creatinine 1.69 H (0.52-1.04) mg/dL POC Glucose (mg/dL) 61 L (70-110) mg/dL 03/03/25 Range/Units 11:35 WBC (4.50-10.00) 10*3/uL RBC (4.10-5.20) 10*6/uL Hgb (12.0-15.0) g/dL Hct (37.2-46.3) % MCH (27.0-32.0) pg Plt Count (140-440) 10*3/uL MPV (9.5-12.2) fL Immature Gran # (0.00-0.04) 10*3/uL Neutrophils # (1.80-7.70) 10*3/uL Lymphocytes # (0.90-5.00) 10*3/uL Sodium (137-145) mmol/L Chloride (98-107) mmol/L Carbon Dioxide (22-30) mmol/L BUN (7-17) mg/dL Creatinine (0.52-1.04) mg/dL POC Glucose (mg/dL) 112 H (70-110) mg/dL Microbiology - Last 24 Hours (Table) 02/27/25 14:09 Blood Culture - Preliminary Blood Assessment and Plan (1) Sepsis Current Visit: Yes Status: Acute Code(s): A41.9 - SEPSIS, UNSPECIFIED ORGANISM SNOMED Code(s): 74480980 (2) LISSETTE (acute kidney injury) Current Visit: Yes Status: Acute Code(s): N17.9 - ACUTE KIDNEY FAILURE, UNSPECIFIED SNOMED Code(s): 60391392 (3) UTI (urinary tract infection) Current Visit: Yes Status: Acute Code(s): N39.0 - URINARY TRACT INFECTION, SITE NOT SPECIFIED SNOMED Code(s): 19940333 (4) Leukocytosis Current Visit: Yes Status: Acute Code(s): D72.829 - ELEVATED WHITE BLOOD CELL COUNT, UNSPECIFIED SNOMED Code(s): 710468340 Plan: 1patient presented hospital with sepsis in this patient who did have tachycardia hypotension elevated white count meeting criteria for SIRS/sepsis source likely urinary in this patient has significantly positive UA along with urinary symptoms likely from enteric gram-negative pathogen keeping in mind history of cancer on chemo will need to cover for resistant gram-negative pathogen 2-patient did have a CT of abdominal pelvis mention worsening lymphadenopathy and concern for hepatic metastasis right lower abdominal wall hematoma, nursing staff has been advised to baldomero the area of the bruise hematoma noted abdominal wall 3the patient is afebrile white count is trending down continue with Rocephin Dictation was produced using [employer] dictation software. please excuse any grammatical, word or spelling errors. Time with Patient: Less than 30
[2025-03-04 08:55] LABS: Basophils # (A) 0.04 10*3/uL (0.00-0.10); Basophils % (A) 0.2 %; Eosinophils # (A) 0.33 10*3/uL (0.04-0.35); Eosinophils % (A) 1.7 %; HCT 23.9 % (37.2-46.3); HGB 7.7 g/dL (12.0-15.0); Lymphocytes # (A) 0.78 10*3/uL (0.90-5.00); Lymphocytes % (A) 4.1 %; MCHC 32.2 g/dL (32.0-37.0); MCV 83.9 fL (80.0-97.0); Mean Platelet Volume 9.5 fL (9.5-12.2); Monocytes # (A) 0.65 10*3/uL (0.20-1.00); Monocytes % (A) 3.4 %; Neutrophils % (A) 87.5 %; Platelet Count 620 10*3/uL (140-440); RBC 2.85 10*6/uL (4.10-5.20); RDW 18.6 % (11.5-14.5)
--- NOTE | 2025-03-04 08:57 | P.PN ---
Subjective Patient is a 55-year-old female with a past medical history of hypertension, hyperlipidemia, diabetes type 2 insulin-dependent, metastatic malignant melanoma with mets to liver and lymph nodes, depression, prior history of smoking, GERD and diabetic peripheral neuropathy and history of SVT, prior history of smoking. Patient presents to ER from Dr. Botello's office due to abnormal labs. Patient was also having generalized weakness. She was in the office for her third infusion. She had blood workup done yesterday which showed multiple abnormalities and was recommended to go to ER. She is also having generalized body pains. Also worsening shortness of breath. No chest pain. She does have decreased appetite and not eating well., No nausea no episodes of vomiting. EKG on admission showed sinus rhythm with heart rate 62 Chest x-ray showed no focal consolidation. Elevation of the right hemidiaphragm which is increased from prior exam. Consider sniff test to evaluate for diaphragmatic paralysis. Laboratory data showed WBC 26.7 hemoglobin 8.8 and platelets 634 MCV 75.3 Sodium 118, potassium 4.1 chloride 93 bicarb is 10 BUN 52 and creatinine 2.96, blood sugar 103 lactic acid 1.1 phosphorus 5.8 alk phos 241 proBNP 2350 lipase 441 Urinalysis showed light yellow turbid with large blood nitrite positive leukocyte esterase large elevated RBCs and WBCs. Influenza A B RSV and COVID-19 PCR not detected. 02/22/2025 Patient is in the MICU. Patient is requiring pressor support with Levophed. Resting in the bed. Awake alert and oriented. Currently on room air. Afebrile overnight. Denied any complaints of nausea vomiting abdominal pain or diarrhea. Lab data showed WBC trending down to 21.7 hemoglobin 8.2 and platelets 0.91 sodium improved to 121 potassium 4.5 chloride 101 bicarb is 6 BUN 54 and creatinine 2.72. Antibiotics were changed to cefazolin 2 g Q12. Nephrology and ID is on board. 02/24/2024 Patient is needing intensive care unit. Awake alert and oriented x 3. Currently on room air. Patient is off pressor support since 5 AM this morning. Sodium level improved to 127 today. Patient is on antibiotics in the form of cefepime. Urine culture showed Proteus Mirabella's. Laboratory data showed WBC 17.7 hemoglobin 7.4 and platelets 505 sodium 123 potassium 3.6 chloride 98 bicarb is 15 BUN 44 and creatinine 1.98, calcium 8.3. 02/24/2025 Patient is in MICU. Ureteric and ovarian x 3. Currently on room air. No c omplaints of chest pain or shortness of breath. Sodium level improved to 127 today. Patient is also been antibiotics for urinary tract infection with ceftriaxone. Urine culture growing Proteus mirabilis. Patient has been afebrile. Patient was given urea 15 g p.o. twice daily. Continued on insulin regimen. Laboratory test showed WBC 16.1 hemoglobin 7.3 and platelets 543 sodium 127 potassium 3.8 chloride 98 bicarb is 15 BUN 4020 creatinine 1.35 and blood sugar 82 magnesium 1.7 albumin 2.4. 02/25/2025 Patient is resting in the bed. Awake alert and oriented. No complaints of chest pain or shortness of breath. Tolerating oral diet. Patient is off IV fluids. He was started on urea and patient was also given Samsca. Sodium level is 126 today. Other laboratory data showed sodium 126 potassium 3.9 chloride 97 bicarb is 19 BUN 56 and creatinine 1.06 and blood sugar 125. Magnesium 1.9. Patient is getting ceftriaxone for urinary tract infection. 02/26 Patient lying in bed comfortable no chest pain or dyspnea No vomiting, she has average appetite No abdominal abdominal pain Patient has ongoing dysuria. 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 As per patient she was getting chemotherapy since November 2024. Her oncologist as outpatient is Dr. Botello. She had 3 cycles of chemotherapy so far. Her Cozaar Aldactone and metformin remain on hold 02/27 Clinically looks the same, awake and alert Main complaint is dysuria which is going on for 1.5 months which looks chronic related to her vaginal mass She is following up with hematology/oncology. Also she follow-up with the surgeon at [facility] with no plans for surgical intervention. Also patient confirms to me that she [facility] [place]. She has right foot boot on. She says she has fracture on November 26 and she is going to follow-up with her orthopedic in 1 to 2 weeks after discharge. No other new complaints Vital stable and afebrile. 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 Both of these lesions has progressed today She is developing more signs of infection with hypotension, leukocytosis went up to 19.6. Creatinine went up to 1.8, systolic blood pressure dropped from 140s down to 100 but slightly less. Patient thought secondary to have urinary tract infection and she is on ceftriaxone 2 g. Diflucan with loading dose added today. No respiratory symptoms no abdominal pain or diarrhea. No rash. No other source of infection She is also on Cardizem 120 and metoprolol 50 mg for A-fib. Also she is on Eliquis 2.5 mg. Hemoglobin dropped today to 6.6. With no evidence of bleeding. She is getting unit of blood transfusion. Posttransfusion Lasix was held because of borderline low blood pressure. After the blood pressure improved. Also she has CT of the abdomen and pelvis showing generalized lymphadenopathy and around the aorta and retrocaval as well as along the iliac chain Most likely related to her metastatic disease. There is evidence also of hepatic metastasis, hematology/oncology team on the case. Patient was informed with some of the CT findings as above 03/01 Patient is still feeling lethargic. She has large fullness with a bruise in the lower abdomen, she is morbidly obese and she has already pendulous abdomen, the area is standing in her. Possible bleeding. Hold Eliquis and check abdominal ultrasound She is s/p 1 unit of blood transfusion yesterday, hemoglobin went up 6.6 up to 7.4. She is also on ceftriaxone and Diflucan for suspected UTI She is a known case of malignant melanoma with evidence of metastasis to the abdominal lymphadenopathy and liver. 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 She looks tired and fatigue Hemoglobin stable at 7.6, WBC down to 18,000 creatinine actually went down to 1.6 She is on ceftriaxone Diflucan, Eliquis 2.5 mg scheduled for renal dose and m etoprolol 5 mg Patient advised about fluid restriction 03/04 Patient was with several year nausea vomiting yesterday controlled with scopolamine patch and Compazine and she needed another Compazine dose this morning because of vomiting but now controlled because of this we are going to discontinue scopolamine and keep monitoring Also she is hyponatremic 123 yesterday and low urine sodium, they were trying to get her up to the commode yesterday but she was very weak and her legs gave way and she has to be lowered to the ground, blood pressure was soft 90s over 40s. However this morning there is maybe some improvement with her blood pressure in the systolic reading is more than 100. She is feeling little bit stronger. And we checked her orthostatic vitals while lying and sitting up and they were negative. We will check another urine sodium today and serum sodium. And will decide if patient will need more IV bolus or IV fluids. Her Eliquis remains on hold, her lower abdominal hematoma is improving less discoloration and less pain/tenderness discussed with staff Active Medications Generic Name Dose Route Start Last Admin Trade Name Freq PRN Reason Stop Dose Admin Acetaminophen 650 mg 02/21/25 15:32 Acetaminophen Tab 325 Mg Tab PO Q6HR PRN Mild Pain or Fever > 100.5 Atorvastatin Calcium 20 mg 02/21/25 21:00 03/03/25 20:55 Atorvastatin 20 Mg Tab PO 20 mg HS [facility] Administration Bupropion HCl 150 mg 02/22/25 09:00 03/04/25 08:19 Bupropion Xl 150 Mg Tab.Er.24h PO 150 mg DAILY [facility] Administration Calcium Carbonate/Glycine 1,000 mg 03/03/25 09:11 Calcium Carbonate 500 Mg Chewable PO TID PRN Heartburn Diltiazem HCl 120 mg 02/21/25 21:00 03/03/25 20:55 Diltiazem Cd 120 Mg Cap.Er.24h PO 120 mg HS [facility] Administration Fenofibrate 160 mg 02/22/25 09:00 03/04/25 08:19 Fenofibrate 160 Mg Tab PO 160 mg DAILY [facility] Administration Fluconazole 100 mg 02/28/25 09:00 03/04/25 08:19 Fluconazole 100 Mg Tab PO 100 mg DAILY [facility] Administration Protocol Gabapentin 600 mg 02/21/25 21:00 03/04/25 08:19 Gabapentin 300 Mg Cap PO 600 mg BID [facility] Administration Hydromorphone HCl 0.5 mg 02/21/25 15:32 03/02/25 19:02 Hydromorphone 0.5 Mg/0.5 Ml Syringe IVP 0.5 mg Q3HR PRN Administration Moderate Pain (Scale 4 to 6) Hydromorphone HCl 1 mg 02/21/25 18:08 03/03/25 20:54 Hydromorphone 2 Mg/Ml 1 Ml Syringe IVP 1 mg Q3HR PRN Administration Severe Pain (Scale 7 to 10) Ceftriaxone Sodium 2 gm/ 50 mls @ 100 mls/hr 02/25/25 09:00 03/04/25 08:18 Dextrose/Water IVPB 100 mls/hr Q24HR [facility] Administration Protocol Insulin Human Lispro 0 unit 03/03/25 12:30 03/04/25 06:56 Insulin Lispro (Humalog) 100 Unit/Ml 10 Ml Vl SQ Not Given ACHS [facility] Protocol Metoclopramide HCl 5 mg 02/26/25 17:05 03/03/25 10:15 Metoclopramide 5 Mg/Ml 2 Ml Vial IVP 5 mg Q8HR PRN Administration Nausea And Vomiting Metoprolol Succinate 50 mg 02/21/25 21:00 03/03/25 20:55 Metoprolol Succinate (Er) 50 Mg Tab.Er.24h PO 50 mg HS [facility] Administration Midodrine 5 mg 03/01/25 17:30 03/04/25 08:15 Midodrine 5 Mg Tab PO 5 mg AC-BID [facility] Administration Miscellaneous Information 1 each 02/22/25 15:48 Potassium Replacement Protocol 1 Each Misc MISCELLANE DAILY PRN Per Protocol Protocol Naloxone HCl 0.2 mg 02/21/25 15:32 Naloxone 0.4 Mg/Ml 1 Ml Vial IV Q2M PRN Opioid Reversal Nystatin 1 applic 02/21/25 15:38 Nystatin 100,000 Unit/Gm Powd 15 Gm TOPICAL TID PRN Skin Irritation Protocol Ondansetron HCl 4 mg 03/03/25 12:30 Ondansetron 4 Mg/2 Ml Vial IVP Q6HR PRN Nausea And Vomiting Pantoprazole Sodium 40 mg 03/03/25 07:30 03/04/25 08:15 Pantoprazole 40 Mg Tablet PO 40 mg AC-BRKFST [facility] Administration Petrolatum 1 applic 02/25/25 09:04 03/02/25 20:48 Zinc Oxide Paste (Z-Guard) 1 Applic TOPICAL 1 applic Q2HR PRN Administration Wound Healing Protocol Prochlorperazine Edisylate 5 mg 03/03/25 12:28 03/04/25 07:15 Prochlorperazine Inj 10 Mg/2 Ml Vial IVP 5 mg Q6HR PRN Administration Nausea And Vomiting Sertraline HCl 50 mg 02/21/25 21:00 03/03/25 20:55 Sertraline 50 Mg Tab PO 50 mg HS [facility] Administration Sodium Bicarbonate 650 mg 02/24/25 09:45 03/04/25 08:19 Sodium Bicarbonate Tab 650 Mg Tab PO 650 mg BID [facility] Administration Urea 15 gm 02/24/25 09:45 03/04/25 08:19 Urea 15 Gm Powd.Pack PO 15 gm BID [facility] Administration Objective - Vital Signs Vital signs: Vital Signs Temp 97.7 F 03/04/25 03:32 Pulse 65 03/04/25 03:32 Resp 16 03/04/25 03:32 BP 109/67 03/04/25 07:18 Pulse Ox 98 03/04/25 03:32 FiO2 Intake & Output 03/03/25 03/04/25 03/04/25 18:59 06:59 18:59 Intake Total 240 1020 Output Total 800 150 Balance -560 870 Weight 145.5 kg Intake: Oral 240 1020 Output: Urine 800 150 Other: Voiding Method External Catheter External Catheter # Voids 1 1 # Bowel Movements 1 - Exam -GENERAL: The patient is alert and oriented x3, not in any acute distress. Well developed, well nourished. Obese HEENT: Pupils are round and equally reacting to light. EOMI. No scleral icterus. No conjunctival pallor. Normocephalic, atraumatic. No pharyngeal erythema. No thyromegaly. CARDIOVASCULAR: S1 and S2 present. No murmurs, rubs, or gallops. PULMONARY: Chest is clear to auscultation, no wheezing , no crackles. ABDOMEN: Soft, nontender, nondistended, normoactive bowel sounds. No palpable organomegaly. MUSCULOSKELETAL: No joint swelling or deformity. EXTREMITIES: No cyanosis, clubbing, or pedal edema. NEUROLOGICAL: Gross neurological examination did not reveal any focal deficits. SKIN: No rashes. no petechiae. - Labs CBC & Chem 7: 03/03/25 06:45 03/03/25 06:45 Labs: Abnormal Lab Results - Last 24 Hours (Table) 03/03/25 03/03/25 03/03/25 Range/Units 11:35 13:00 20:45 POC Glucose (mg/dL) 112 H 119 H (70-110) mg/dL Ur Random Sodium 36 L (40-220) mmol/L 03/04/25 Range/Units 06:42 POC Glucose (mg/dL) 149 H (70-110) mg/dL Ur Random Sodium (40-220) mmol/L Assessment and Plan Assessment: Lower abdominal hematoma suspected with severe anemia required unit of blood t ransfusion on 03/01 Severe hyponatremia with sodium level 118 on admission-hypoosmolar hyponatremia due to decreased oral intake and LISSETTE. Acute kidney injury. Possible ATN. SIADH cannot be excluded due to underlying malignancy. Creatinine 2.96 on admission baseline 1.0 Non-anion gap metabolic acidosis Acute urinary tract infection with Proteus Mirabella's. Mild pancreatitis with lipase level 441 Malignant melanoma with mets to liver and lymph nodes, generalized intra- abdominal lymphadenopathy and hepatic metastasis. On chemoinfusion and is on follow-up with oncology. Diabetes type 2 insulin-dependent Diabetic peripheral neuropathy History of SVT Paroxysmal atrial fibrillation Osteoarthritis Hypertension Hyperlipidemia GERD Depression Prior history of smoking Microcytic anemia rule out iron deficiency. 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 Check blood pressure, urine sodium level Monitor creatinine Nephrology team consult Hematology/oncology team consult Continue holding metformin, Aldactone and Cozaar Hematology/oncology team on the case Critical care team consult sign of the case on 03/02 GI prophylaxis: Protonix DVT prophylaxis: Eliquis, currently on hold Physical therapist recommended home versus subacute rehab Prognosis is guarded
[2025-03-04 09:11] LABS: African American GFR (CKD) 41 (>60 ml/min/1.73 sqM); Anion Gap 8 mmol/L; Calcium 8.7 mg/dL (8.4-10.2); Carbon Dioxide 21 mmol/L (22-30); Chloride 94 mmol/L (98-107); Glucose 147 mg/dL (74-99); Non-African American GFR(CKD) 36 (>60 ml/min/1.73 sqM); Potassium 4.5 mmol/L (3.5-5.1); Sodium 123 mmol/L (137-145); Uric Acid 9.3 mg/dL (3.7-7.4)
[2025-03-04 09:18] LABS: Blood Urea Nitrogen 108 mg/dL (7-17)
--- NOTE | 2025-03-04 11:41 | P.PN ---
Subjective Patient is seen for follow-up for acute kidney injury and hyponatremia. Renal function has improved. Serum creatinine decreased to 1.6 today. Serum sodium 123 today. Nausea slightly improved Objective - Vital Signs Vital signs: Vital Signs Temp 97.8 F 03/04/25 08:12 Pulse 65 03/04/25 11:02 Resp 20 03/04/25 11:02 BP 102/65 03/04/25 11:02 Pulse Ox 99 03/04/25 11:02 FiO2 Intake & Output 03/03/25 03/04/25 03/04/25 18:59 06:59 18:59 Intake Total 240 1020 Output Total 800 150 Balance -560 870 Weight 145.5 kg Intake: Oral 240 1020 Output: Urine 800 150 Other: Voiding Method External Catheter External Catheter External Catheter # Voids 1 1 1 # Bowel Movements 1 0 - Exam Patient is awake, comfortable, no acute distress. Examination of the heart S1 and S2 Examination of the lungs bilateral breath sounds are heard Abdomen is soft obese Examination of lower extremities shows 1+ edema right leg, trace edema left leg - Labs CBC & Chem 7: 03/04/25 08:25 03/04/25 08:25 Labs: Abnormal Lab Results - Last 24 Hours (Table) 03/03/25 03/03/25 03/04/25 Range/Units 13:00 20:45 06:42 WBC (4.50-10.00) 10*3/uL RBC (4.10-5.20) 10*6/uL Hgb (12.0-15.0) g/dL Hct (37.2-46.3) % Plt Count (140-440) 10*3/uL Immature Gran # (0.00-0.04) 10*3/uL Neutrophils # (1.80-7.70) 10*3/uL Lymphocytes # (0.90-5.00) 10*3/uL Sodium (137-145) mmol/L Chloride (98-107) mmol/L Carbon Dioxide (22-30) mmol/L BUN (7-17) mg/dL Creatinine (0.52-1.04) mg/dL Glucose (74-99) mg/dL POC Glucose (mg/dL) 119 H 149 H (70-110) mg/dL Uric Acid (3.7-7.4) mg/dL Ur Random Sodium 36 L (40-220) mmol/L 03/04/25 03/04/25 Range/Units 08:25 08:25 WBC 19.10 H (4.50-10.00) 10*3/uL RBC 2.85 L (4.10-5.20) 10*6/uL Hgb 7.7 L (12.0-15.0) g/dL Hct 23.9 L (37.2-46.3) % Plt Count 620 H (140-440) 10*3/uL Immature Gran # 0.60 H (0.00-0.04) 10*3/uL Neutrophils # 16.70 H (1.80-7.70) 10*3/uL Lymphocytes # 0.78 L (0.90-5.00) 10*3/uL Sodium 123 L (137-145) mmol/L Chloride 94 L (98-107) mmol/L Carbon Dioxide 21 L (22-30) mmol/L BUN 108 H* (7-17) mg/dL Creatinine 1.60 H (0.52-1.04) mg/dL Glucose 147 H (74-99) mg/dL POC Glucose (mg/dL) (70-110) mg/dL Uric Acid 9.3 H (3.7-7.4) mg/dL Ur Random Sodium (40-220) mmol/L Assessment and Plan Assessment: 1. 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 Urine osmolality 252. Sodium 123 this morning. Status post sodium chloride tab. Cortisol level high. TSH normal. Urine osmolality 252. Status post [facility] on 02/25/2025 2. Malignant melanoma with metastatic disease to liver and lymph nodes. 3. Acute kidney injury secondary to ATN secondary to severe sepsis. Baseline creatinine near 1 from December 2024. Creatinine 2.96 on admission and improved to 1.06 - now worsening again due to acute blood loss anemia. Stabilized at 1.6 now. BUN disproportionately elevated from urea. 4. UTI on antibiotics. Urine culture positive for Proteus. 5. Metabolic acidosis secondary to acute kidney injury and IV fluids. Was also on metformin. On oral bicarb. 6. Diabetes mellitus. 7. Anemia. Iron deficiency noted. s/p IV iron. Having vaginal bleeding. Hemoglobin 7.6 today. 8. Mild volume overload. Plan: DC urea Continue midodrine Continue with oral sodium bicarb
[2025-03-04 12:27] LABS: Glucose,Whole Blood 181 mg/dL (70-110)
--- NOTE | 2025-03-04 15:03 | P.PN ---
Subjective Progress Note Date: 03/04/25 Principal diagnosis: Reason for follow-up is sepsis and UTI Patient is a 55-year-old female with a past medical history significant for stage IV malignant melanoma on chemo, Diabetes Mellitus, GERD/Reflux, Hyperlipidemia, Hypertension, Osteoarthritis (OA) presenting to the hospital for evaluation of generalized weakness did have urinary symptoms a positive UA concerning for symptomatic UTI with sepsis requiring admission by ICU. On today's evaluation that is 03/04/2025,the patient denies any fever or any chills, patient is breathing comfortably on room air, the patient denies chest pain shortness of breath and no significant cough, patient has been complaining of pain to the lower abdominal area along with nausea and not feeling well. Patient white count is 19.10, creatinine is 1.6 0 repeat blood and urine culture have been negative Objective - Vital Signs Vital signs: Vital Signs Temp 97.8 F 03/04/25 08:12 Pulse 65 03/04/25 11:02 Resp 20 03/04/25 11:02 BP 102/65 03/04/25 11:02 Pulse Ox 99 03/04/25 11:02 FiO2 Intake & Output 03/03/25 03/04/25 03/04/25 18:59 06:59 18:59 Intake Total 240 1020 690 Output Total 800 150 350 Balance -560 870 340 Weight 145.5 kg Intake: Oral 240 1020 690 Output: Urine 800 150 350 Other: Voiding Method External Catheter External Catheter External Catheter # Voids 1 1 1 # Bowel Movements 1 0 - Exam GENERAL DESCRIPTION: A middle-age female lying in bed in no distress RESPIRATORY SYSTEM: Unlabored breathing , decreased breath sounds at bases HEART: S1 S2 regular rate and rhythm , ABDOMEN: Soft , lower abdominal wall bruising hematoma EXTREMITIES: No edema feet - Labs CBC & Chem 7: 03/04/25 08:25 03/04/25 08:25 Labs: Abnormal Lab Results - Last 24 Hours (Table) 03/03/25 03/03/25 03/04/25 Range/Units 13:00 20:45 06:42 WBC (4.50-10.00) 10*3/uL RBC (4.10-5.20) 10*6/uL Hgb (12.0-15.0) g/dL Hct (37.2-46.3) % Plt Count (140-440) 10*3/uL Immature Gran # (0.00-0.04) 10*3/uL Neutrophils # (1.80-7.70) 10*3/uL Lymphocytes # (0.90-5.00) 10*3/uL Sodium (137-145) mmol/L Chloride (98-107) mmol/L Carbon Dioxide (22-30) mmol/L BUN (7-17) mg/dL Creatinine (0.52-1.04) mg/dL Glucose (74-99) mg/dL POC Glucose (mg/dL) 119 H 149 H (70-110) mg/dL Uric Acid (3.7-7.4) mg/dL Ur Random Sodium 36 L (40-220) mmol/L 03/04/25 03/04/25 03/04/25 Range/Units 08:25 08:25 12:23 WBC 19.10 H (4.50-10.00) 10*3/uL RBC 2.85 L (4.10-5.20) 10*6/uL Hgb 7.7 L (12.0-15.0) g/dL Hct 23.9 L (37.2-46.3) % Plt Count 620 H (140-440) 10*3/uL Immature Gran # 0.60 H (0.00-0.04) 10*3/uL Neutrophils # 16.70 H (1.80-7.70) 10*3/uL Lymphocytes # 0.78 L (0.90-5.00) 10*3/uL Sodium 123 L (137-145) mmol/L Chloride 94 L (98-107) mmol/L Carbon Dioxide 21 L (22-30) mmol/L BUN 108 H* (7-17) mg/dL Creatinine 1.60 H (0.52-1.04) mg/dL Glucose 147 H (74-99) mg/dL POC Glucose (mg/dL) 181 H (70-110) mg/dL Uric Acid 9.3 H (3.7-7.4) mg/dL Ur Random Sodium (40-220) mmol/L Assessment and Plan (1) Sepsis Current Visit: Yes Status: Acute Code(s): A41.9 - SEPSIS, UNSPECIFIED ORGANISM SNOMED Code(s): 54650548 (2) LISSETTE (acute kidney injury) Current Visit: Yes Status: Acute Code(s): N17.9 - ACUTE KIDNEY FAILURE, UNSPECIFIED SNOMED Code(s): 56853239 (3) UTI (urinary tract infection) Current Visit: Yes Status: Acute Code(s): N39.0 - URINARY TRACT INFECTION, SITE NOT SPECIFIED SNOMED Code(s): 50530974 (4) Leukocytosis Current Visit: Yes Status: Acute Code(s): D72.829 - ELEVATED WHITE BLOOD CELL COUNT, UNSPECIFIED SNOMED Code(s): 689418393 Plan: 1patient presented hospital with sepsis in this patient who did have tachycardia hypotension elevated white count meeting criteria for SIRS/sepsis source likely urinary in this patient has significantly positive UA along with urinary symptoms likely from enteric gram-negative pathogen keeping in mind history of cancer on chemo will need to cover for resistant gram-negative pathogen 2-patient did have a CT of abdominal pelvis mention worsening lymphadenopathy and concern for hepatic metastasis right lower abdominal wall hematoma, 3the patient is afebrile white count has been up and down and more likely related to her hematoma and malignancy rather than any worsening infection as repeat culture have been negative continue with Rocephin at the bedside question answered Dictation was produced using [employer] dictation software. please excuse any gramma tical, word or spelling errors.
[2025-03-04 16:30] LABS: Glucose,Whole Blood 120 mg/dL (70-110)
[2025-03-04 20:11] LABS: Glucose,Whole Blood 150 mg/dL (70-110)
[2025-03-05 02:04] LABS: Glucose,Whole Blood 140 mg/dL (70-110)
[2025-03-05 05:48] LABS: Glucose,Whole Blood 155 mg/dL (70-110)
[2025-03-05 07:33] LABS: Basophils # (A) 0.03 10*3/uL (0.00-0.10); Basophils % (A) 0.2 %; Eosinophils # (A) 0.43 10*3/uL (0.04-0.35); Eosinophils % (A) 2.6 %; HCT 22.9 % (37.2-46.3); HGB 7.4 g/dL (12.0-15.0); Lymphocytes % (A) 6.1 %; MCH 27.3 pg (27.0-32.0); MCHC 32.3 g/dL (32.0-37.0); MCV 84.5 fL (80.0-97.0); Mean Platelet Volume 8.7 fL (9.5-12.2); Monocytes # (A) 0.58 10*3/uL (0.20-1.00); Monocytes % (A) 3.5 %; Neutrophils # (A) 13.87 10*3/uL (1.80-7.70); Neutrophils % (A) 84.6 %; Platelet Count 580 10*3/uL (140-440); RBC 2.71 10*6/uL (4.10-5.20); RDW 18.8 % (11.5-14.5); WBC 16.41 10*3/uL (4.50-10.00)
[2025-03-05 08:26] LABS: African American GFR (CKD) 38 (>60 ml/min/1.73 sqM); Anion Gap 7 mmol/L; Calcium 8.6 mg/dL (8.4-10.2); Carbon Dioxide 22 mmol/L (22-30); Chloride 95 mmol/L (98-107); Glucose 127 mg/dL (74-99); Non-African American GFR(CKD) 33 (>60 ml/min/1.73 sqM); Potassium 4.1 mmol/L (3.5-5.1); Sodium 124 mmol/L (137-145)
[2025-03-05 08:33] LABS: Blood Urea Nitrogen 105 mg/dL (7-17)
--- NOTE | 2025-03-05 10:13 | P.PN ---
Subjective Patient is a 55-year-old female with a past medical history of hypertension, hyperlipidemia, diabetes type 2 insulin-dependent, metastatic malignant melanoma with mets to liver and lymph nodes, depression, prior history of smoking, GERD and diabetic peripheral neuropathy and history of SVT, prior history of smoking. Patient presents to ER from Dr. Botello's office due to abnormal labs. Patient was also having generalized weakness. She was in the office for her third infusion. She had blood workup done yesterday which showed multiple abnormalities and was recommended to go to ER. She is also having generalized body pains. Also worsening shortness of breath. No chest pain. She does have decreased appetite and not eating well., No nausea no episodes of vomiting. EKG on admission showed sinus rhythm with heart rate 62 Chest x-ray showed no focal consolidation. Elevation of the right hemidiaphragm which is increased from prior exam. Consider sniff test to evaluate for diaphragmatic paralysis. Laboratory data showed WBC 26.7 hemoglobin 8.8 and platelets 634 MCV 75.3 Sodium 118, potassium 4.1 chloride 93 bicarb is 10 BUN 52 and creatinine 2.96, blood sugar 103 lactic acid 1.1 phosphorus 5.8 alk phos 241 proBNP 2350 lipase 441 Urinalysis showed light yellow turbid with large blood nitrite positive leukocyte esterase large elevated RBCs and WBCs. Influenza A B RSV and COVID-19 PCR not detected. 02/22/2025 Patient is in the MICU. Patient is requiring pressor support with Levophed. Resting in the bed. Awake alert and oriented. Currently on room air. Afebrile overnight. Denied any complaints of nausea vomiting abdominal pain or diarrhea. Lab data showed WBC trending down to 21.7 hemoglobin 8.2 and platelets 0.91 sodium improved to 121 potassium 4.5 chloride 101 bicarb is 6 BUN 54 and creatinine 2.72. Antibiotics were changed to cefazolin 2 g Q12. Nephrology and ID is on board. 02/24/2024 Patient is needing intensive care unit. Awake alert and oriented x 3. Currently on room air. Patient is off pressor support since 5 AM this morning. Sodium level improved to 127 today. Patient is on antibiotics in the form of cefepime. Urine culture showed Proteus Mirabella's. Laboratory data showed WBC 17.7 hemoglobin 7.4 and platelets 505 sodium 123 potassium 3.6 chloride 98 bicarb is 15 BUN 44 and creatinine 1.98, calcium 8.3. 02/24/2025 Patient is in MICU. Ureteric and ovarian x 3. Currently on room air. No c omplaints of chest pain or shortness of breath. Sodium level improved to 127 today. Patient is also been antibiotics for urinary tract infection with ceftriaxone. Urine culture growing Proteus mirabilis. Patient has been afebrile. Patient was given urea 15 g p.o. twice daily. Continued on insulin regimen. Laboratory test showed WBC 16.1 hemoglobin 7.3 and platelets 543 sodium 127 potassium 3.8 chloride 98 bicarb is 15 BUN 4020 creatinine 1.35 and blood sugar 82 magnesium 1.7 albumin 2.4. 02/25/2025 Patient is resting in the bed. Awake alert and oriented. No complaints of chest pain or shortness of breath. Tolerating oral diet. Patient is off IV fluids. He was started on urea and patient was also given Samsca. Sodium level is 126 today. Other laboratory data showed sodium 126 potassium 3.9 chloride 97 bicarb is 19 BUN 56 and creatinine 1.06 and blood sugar 125. Magnesium 1.9. Patient is getting ceftriaxone for urinary tract infection. 02/26 Patient lying in bed comfortable no chest pain or dyspnea No vomiting, she has average appetite No abdominal abdominal pain Patient has ongoing dysuria. 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 As per patient she was getting chemotherapy since November 2024. Her oncologist as outpatient is Dr. Botello. She had 3 cycles of chemotherapy so far. Her Cozaar Aldactone and metformin remain on hold 02/27 Clinically looks the same, awake and alert Main complaint is dysuria which is going on for 1.5 months which looks chronic related to her vaginal mass She is following up with hematology/oncology. Also she follow-up with the surgeon at [facility] with no plans for surgical intervention. Also patient confirms to me that she follow-up with client care specialist in [place]. She has right foot boot on. She says she has fracture on November 26 and she is going to follow-up with her orthopedic in 1 to 2 weeks after discharge. No other new complaints Vital stable and afebrile. 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 Both of these lesions has progressed today She is developing more signs of infection with hypotension, leukocytosis went up to 19.6. Creatinine went up to 1.8, systolic blood pressure dropped from 140s down to 100 but slightly less. Patient thought secondary to have urinary tract infection and she is on ceftriaxone 2 g. Diflucan with loading dose added today. No respiratory symptoms no abdominal pain or diarrhea. No rash. No other source of infection She is also on Cardizem 120 and metoprolol 50 mg for A-fib. Also she is on Eliquis 2.5 mg. Hemoglobin dropped today to 6.6. With no evidence of bleeding. She is getting unit of blood transfusion. Posttransfusion Lasix was held because of borderline low blood pressure. After the blood pressure improved. Also she has CT of the abdomen and pelvis showing generalized lymphadenopathy and around the aorta and retrocaval as well as along the iliac chain Most likely related to her metastatic disease. There is evidence also of hepatic metastasis, hematology/oncology team on the case. Patient was informed with some of the CT findings as above 03/01 Patient is still feeling lethargic. She has large fullness with a bruise in the lower abdomen, she is morbidly obese and she has already pendulous abdomen, the area is standing in her. Possible bleeding. Hold Eliquis and check abdominal ultrasound She is s/p 1 unit of blood transfusion yesterday, hemoglobin went up 6.6 up to 7.4. She is also on ceftriaxone and Diflucan for suspected UTI She is a known case of malignant melanoma with evidence of metastasis to the abdominal lymphadenopathy and liver. Today at bedside throughout the encounter 03/02 Patient today feels better She has pain at the hematoma site in the lower abdomen Hemoglobin was 7.77.3 and rechecked it was 8.3, she is status post blood transfusion yesterday for hemoglobin dropped to 6.8 No other new signs symptoms Eliquis dose was lowered from 5 down to 2.5 mg for her history of A-fib She remains on ceftriaxone and Diflucan yesterday still has leukocytosis about 21,000 Pulmonary service signed off the case today 03/03 Patient has nausea but no vomiting, she feels dyspepsia Pain in the lower abdomen slightly better per patient cracking still operator and 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 She looks tired and fatigue Hemoglobin stable at 7.6, WBC down to 18,000 creatinine actually went down to 1.6 She is on ceftriaxone Diflucan, Eliquis 2.5 mg scheduled for renal dose and m etoprolol 5 mg Patient advised about fluid restriction 03/04 Patient was with several year nausea vomiting yesterday controlled with scopolamine patch and Compazine and she needed another Compazine dose this morning because of vomiting but now controlled because of this we are going to discontinue scopolamine and keep monitoring Also she is hyponatremic 123 yesterday and low urine sodium, they were trying to get her up to the commode yesterday but she was very weak and her legs gave way and she has to be lowered to the ground, blood pressure was soft 90s over 40s. However this morning there is maybe some improvement with her blood pressure in the systolic reading is more than 100. She is feeling little bit stronger. And we checked her orthostatic vitals while lying and sitting up and they were negative. We will check another urine sodium today and serum sodium. And will decide if patient will need more IV bolus or IV fluids. Her Eliquis remains on hold, her lower abdominal hematoma is improving less discoloration and less pain/tenderness discussed with staff 03/05 Patient today feels better she is up in bed and she looks better and more energetic. Patient asking when she will be discharged home Her pain and bruise on the lower abdominal are stable and improving slowly and gradually. Still has vaginal symptoms but today she has less vaginal bleeding for the first time as she explains but has not stopped completely. Blood pressure above 100 which looks stable. Sodium slightly up 123 up to 124 and creatinine 1.6. Leukocyte count is coming down to 16,000 and hemoglobin do wn to 7.4 from 7.6 She remains on ceftriaxone and Diflucan. Eliquis remains on hold. She is still giving sodium bicarb tablets per nephrology team Objective - Vital Signs Vital signs: Vital Signs Temp 97.7 F 03/05/25 04:08 Pulse 62 03/05/25 04:08 Resp 16 03/05/25 04:08 BP 102/62 03/05/25 06:35 Pulse Ox 98 03/05/25 04:08 FiO2 Intake & Output 03/04/25 03/05/25 03/05/25 18:59 06:59 18:59 Intake Total 1350 0 Output Total 625 250 Balance 725 -250 Intake: Oral 1350 0 Output: Urine 625 250 Other: Voiding Method Bedpan External Catheter External Catheter # Voids 1 # Bowel Movements 0 1 1 - Exam -GENERAL: The patient is alert and oriented x3, not in any acute distress. Well developed, well nourished. Obese HEENT: Pupils are round and equally reacting to light. EOMI. No scleral icterus. No conjunctival pallor. Normocephalic, atraumatic. No pharyngeal erythema. No thyromegaly. CARDIOVASCULAR: S1 and S2 present. No murmurs, rubs, or gallops. PULMONARY: Chest is clear to auscultation, no wheezing , no crackles. ABDOMEN: Soft, nontender, nondistended, normoactive bowel sounds. No palpable organomegaly. MUSCULOSKELETAL: No joint swelling or deformity. EXTREMITIES: No cyanosis, clubbing, or pedal edema. NEUROLOGICAL: Gross neurological examination did not reveal any focal deficits. SKIN: No rashes. no petechiae. - Labs CBC & Chem 7: 03/05/25 07:23 03/05/25 07:23 Labs: Abnormal Lab Results - Last 24 Hours (Table) 03/04/25 03/04/25 03/04/25 Range/Units 12:23 16:28 17:55 WBC (4.50-10.00) 10*3/uL RBC (4.10-5.20) 10*6/uL Hgb (12.0-15.0) g/dL Hct (37.2-46.3) % Plt Count (140-440) 10*3/uL MPV (9.5-12.2) fL Immature Gran # (0.00-0.04) 10*3/uL Neutrophils # (1.80-7.70) 10*3/uL Eosinophils # (0.04-0.35) 10*3/uL Sodium (137-145) mmol/L Chloride (98-107) mmol/L BUN (7-17) mg/dL Creatinine (0.52-1.04) mg/dL Glucose (74-99) mg/dL POC Glucose (mg/dL) 181 H 120 H (70-110) mg/dL Urine Osmolality (400-1100) mOsm/kg Ur Random Sodium <20 L (40-220) mmol/L 03/04/25 03/04/25 03/05/25 Range/Units 17:55 20:10 02:03 WBC (4.50-10.00) 10*3/uL RBC (4.10-5.20) 10*6/uL Hgb (12.0-15.0) g/dL Hct (37.2-46.3) % Plt Count (140-440) 10*3/uL MPV (9.5-12.2) fL Immature Gran # (0.00-0.04) 10*3/uL Neutrophils # (1.80-7.70) 10*3/uL Eosinophils # (0.04-0.35) 10*3/uL Sodium (137-145) mmol/L Chloride (98-107) mmol/L BUN (7-17) mg/dL Creatinine (0.52-1.04) mg/dL Glucose (74-99) mg/dL POC Glucose (mg/dL) 150 H 140 H (70-110) mg/dL Urine Osmolality 387 L (400-1100) mOsm/kg Ur Random Sodium (40-220) mmol/L 03/05/25 03/05/25 03/05/25 Range/Units 05:47 07:23 07:23 WBC 16.41 H (4.50-10.00) 10*3/uL RBC 2.71 L (4.10-5.20) 10*6/uL Hgb 7.4 L (12.0-15.0) g/dL Hct 22.9 L (37.2-46.3) % Plt Count 580 H (140-440) 10*3/uL MPV 8.7 L (9.5-12.2) fL Immature Gran # 0.50 H (0.00-0.04) 10*3/uL Neutrophils # 13.87 H (1.80-7.70) 10*3/uL Eosinophils # 0.43 H (0.04-0.35) 10*3/uL Sodium 124 L (137-145) mmol/L Chloride 95 L (98-107) mmol/L BUN 105 H* (7-17) mg/dL Creatinine 1.71 H (0.52-1.04) mg/dL Glucose 127 H (74-99) mg/dL POC Glucose (mg/dL) 155 H (70-110) mg/dL Urine Osmolality (400-1100) mOsm/kg Ur Random Sodium (40-220) mmol/L Microbiology - Last 24 Hours (Table) 02/27/25 14:09 Blood Culture - Final Blood Assessment and Plan Assessment: Lower abdominal hematoma suspected with severe anemia required unit of blood transfusion on 03/01 Severe hyponatremia with sodium level 118 on admission-hypoosmolar hyponatremia due to decreased oral intake and LISSETTE. Acute kidney injury. Possible ATN. SIADH cannot be excluded due to underlying malignancy. Creatinine 2.96 on admission baseline 1.0 Non-anion gap metabolic acidosis Acute urinary tract infection with Proteus Mirabella's. Mild pancreatitis with lipase level 441 Malignant melanoma with mets to liver and lymph nodes, generalized intra- abdominal lymphadenopathy and hepatic metastasis. On chemoinfusion and is on follow-up with oncology. Diabetes type 2 insulin-dependent Diabetic peripheral neuropathy History of SVT Paroxysmal atrial fibrillation Osteoarthritis Hypertension Hyperlipidemia GERD Depression Prior history of smoking Microcytic anemia rule out iron deficiency. Hemoglobin 8.8 on admission morbid obesity Plan: Hold Eliquis 2.5 mg, keep monitoring hemoglobin and the hematoma Continue with ceftriaxone and Diflucan as per ID team on the medical case manager sodium level, i but was low. Check blood pressure, urine sodium level Monitor creatinine Nephrology team consult Hematology/oncology team consult Continue holding metformin, Aldactone and Cozaar Hematology/oncology team on the case Critical care team consult sign of the case on 03/02 GI prophylaxis: Protonix DVT prophylaxis: Eliquis, currently on hold Physical therapist recommended home versus subacute rehab Prognosis is guarded
[2025-03-05 11:22] LABS: Glucose,Whole Blood 182 mg/dL (70-110)
--- NOTE | 2025-03-05 12:20 | P.PN ---
Subjective Patient is seen for follow-up for acute kidney injury and hyponatremia. Renal function fairly stable with serum creatinine at 1.6 to 1.7 mg/dL Serum sodium 124 today. Nausea slightly improved Objective - Vital Signs Vital signs: Vital Signs Temp 97.5 F L 03/05/25 08:00 Pulse 62 03/05/25 08:00 Resp 18 03/05/25 08:00 BP 111/65 03/05/25 08:00 Pulse Ox 98 03/05/25 08:00 FiO2 Intake & Output 03/04/25 03/05/25 03/05/25 18:59 06:59 18:59 Intake Total 1350 0 Output Total 625 250 Balance 725 -250 Intake: Oral 1350 0 Output: Urine 625 250 Other: Voiding Method Bedpan External Catheter External Catheter External Catheter # Voids 1 # Bowel Movements 0 1 1 - Exam Patient is awake, comfortable, no acute distress. Examination of the heart S1 and S2 Examination of the lungs bilateral breath sounds are heard Abdomen is soft obese Examination of lower extremities shows 1+ edema - Labs CBC & Chem 7: 03/05/25 07:23 03/05/25 07:23 Labs: Abnormal Lab Results - Last 24 Hours (Table) 03/04/25 03/04/25 03/04/25 Range/Units 12:23 16:28 17:55 WBC (4.50-10.00) 10*3/uL RBC (4.10-5.20) 10*6/uL Hgb (12.0-15.0) g/dL Hct (37.2-46.3) % Plt Count (140-440) 10*3/uL MPV (9.5-12.2) fL Immature Gran # (0.00-0.04) 10*3/uL Neutrophils # (1.80-7.70) 10*3/uL Eosinophils # (0.04-0.35) 10*3/uL Sodium (137-145) mmol/L Chloride (98-107) mmol/L BUN (7-17) mg/dL Creatinine (0.52-1.04) mg/dL Glucose (74-99) mg/dL POC Glucose (mg/dL) 181 H 120 H (70-110) mg/dL Urine Osmolality (400-1100) mOsm/kg Ur Random Sodium <20 L (40-220) mmol/L 03/04/25 03/04/25 03/05/25 Range/Units 17:55 20:10 02:03 WBC (4.50-10.00) 10*3/uL RBC (4.10-5.20) 10*6/uL Hgb (12.0-15.0) g/dL Hct (37.2-46.3) % Plt Count (140-440) 10*3/uL MPV (9.5-12.2) fL Immature Gran # (0.00-0.04) 10*3/uL Neutrophils # (1.80-7.70) 10*3/uL Eosinophils # (0.04-0.35) 10*3/uL Sodium (137-145) mmol/L Chloride (98-107) mmol/L BUN (7-17) mg/dL Creatinine (0.52-1.04) mg/dL Glucose (74-99) mg/dL POC Glucose (mg/dL) 150 H 140 H (70-110) mg/dL Urine Osmolality 387 L (400-1100) mOsm/kg Ur Random Sodium (40-220) mmol/L 03/05/25 03/05/25 03/05/25 Range/Units 05:47 07:23 07:23 WBC 16.41 H (4.50-10.00) 10*3/uL RBC 2.71 L (4.10-5.20) 10*6/uL Hgb 7.4 L (12.0-15.0) g/dL Hct 22.9 L (37.2-46.3) % Plt Count 580 H (140-440) 10*3/uL MPV 8.7 L (9.5-12.2) fL Immature Gran # 0.50 H (0.00-0.04) 10*3/uL Neutrophils # 13.87 H (1.80-7.70) 10*3/uL Eosinophils # 0.43 H (0.04-0.35) 10*3/uL Sodium 124 L (137-145) mmol/L Chloride 95 L (98-107) mmol/L BUN 105 H* (7-17) mg/dL Creatinine 1.71 H (0.52-1.04) mg/dL Glucose 127 H (74-99) mg/dL POC Glucose (mg/dL) 155 H (70-110) mg/dL Urine Osmolality (400-1100) mOsm/kg Ur Random Sodium (40-220) mmol/L 03/05/25 Range/Units 11:16 WBC (4.50-10.00) 10*3/uL RBC (4.10-5.20) 10*6/uL Hgb (12.0-15.0) g/dL Hct (37.2-46.3) % Plt Count (140-440) 10*3/uL MPV (9.5-12.2) fL Immature Gran # (0.00-0.04) 10*3/uL Neutrophils # (1.80-7.70) 10*3/uL Eosinophils # (0.04-0.35) 10*3/uL Sodium (137-145) mmol/L Chloride (98-107) mmol/L BUN (7-17) mg/dL Creatinine (0.52-1.04) mg/dL Glucose (74-99) mg/dL POC Glucose (mg/dL) 182 H (70-110) mg/dL Urine Osmolality (400-1100) mOsm/kg Ur Random Sodium (40-220) mmol/L Microbiology - Last 24 Hours (Table) 02/27/25 14:09 Blood Culture - Final Blood Assessment and Plan Assessment: 1. 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 Urine osmolality 252. Sodium 123 this morning. Status post sodium chloride tab. Cortisol level high. TSH normal. Urine osmolality 252. Status post [facility] on 02/25/2025 2. Malignant melanoma with metastatic disease to liver and lymph nodes. 3. Acute kidney injury secondary to ATN secondary to severe sepsis. Baseline creatinine near 1 from December 2024. Creatinine 2.96 on admission and improved to 1.06 - worsened again due to acute blood loss anemia. Stabilized at 1.6 now. BUN disproportionately elevated from urea. 4. UTI on antibiotics. Urine culture positive for Proteus. 5. Metabolic acidosis secondary to acute kidney injury and IV fluids. Was also on metformin. On oral bicarb. 6. Diabetes mellitus. 7. Anemia. Iron deficiency noted. s/p IV iron. Having vaginal bleeding. Hemoglobin 7.4 today. 8. Mild volume overload. Plan: Continue off of urea Continue midodrine Continue with oral sodium bicarb Repeat labs in a.m.
[2025-03-05] MEDS: ONDANSETRON 4 MG/2 ML VIAL IVP PRN (13:07)
[2025-03-05 16:05] LABS: Glucose,Whole Blood 197 mg/dL (70-110)
--- NOTE | 2025-03-05 17:04 | P.PN ---
Subjective Progress Note Date: 03/05/25 Principal diagnosis: Reason for follow-up is sepsis and UTI Patient is a 55-year-old female with a past medical history significant for stage IV malignant melanoma on chemo, Diabetes Mellitus, GERD/Reflux, Hyperlipidemia, Hypertension, Osteoarthritis (OA) presenting to the hospital for evaluation of generalized weakness did have urinary symptoms a positive UA concerning for symptomatic UTI with sepsis requiring admission by ICU. On today's evaluation that is 03/05/2025,the patient remains to be afebrile, patient is on room air not requiring supplemental oxygen and denies any shortness of breath no chest pain or cough.Patient has been complaining of feeling nauseated and lower abdominal discomfort no diarrhea. Patient white count down to 16.41 creatinine is 1.71 Objective - Vital Signs Vital signs: Vital Signs Temp 97.5 F L 03/05/25 08:00 Pulse 60 03/05/25 16:00 Resp 18 03/05/25 16:00 BP 126/72 03/05/25 16:00 Pulse Ox 98 03/05/25 16:00 FiO2 Intake & Output 03/04/25 03/05/25 03/05/25 18:59 06:59 18:59 Intake Total 1350 120 Output Total 625 450 Balance 725 -330 Weight 145.5 kg Intake: Oral 1350 120 Output: Urine 625 450 Other: Voiding Method Bedpan External Catheter External Catheter External Catheter # Voids 1 # Bowel Movements 0 1 1 - Exam GENERAL DESCRIPTION: A middle-age female lying in bed in no distress RESPIRATORY SYSTEM: Unlabored breathing , decreased breath sounds at bases HEART: S1 S2 regular rate and rhythm , ABDOMEN: Soft , lower abdominal wall bruising hematoma EXTREMITIES: No edema feet - Labs CBC & Chem 7: 03/05/25 07:23 03/05/25 07:23 Labs: Abnormal Lab Results - Last 24 Hours (Table) 03/04/25 03/04/25 03/04/25 Range/Units 17:55 17:55 20:10 WBC (4.50-10.00) 10*3/uL RBC (4.10-5.20) 10*6/uL Hgb (12.0-15.0) g/dL Hct (37.2-46.3) % Plt Count (140-440) 10*3/uL MPV (9.5-12.2) fL Immature Gran # (0.00-0.04) 10*3/uL Neutrophils # (1.80-7.70) 10*3/uL Eosinophils # (0.04-0.35) 10*3/uL Sodium (137-145) mmol/L Chloride (98-107) mmol/L BUN (7-17) mg/dL Creatinine (0.52-1.04) mg/dL Glucose (74-99) mg/dL POC Glucose (mg/dL) 150 H (70-110) mg/dL Urine Osmolality 387 L (400-1100) mOsm/kg Ur Random Sodium <20 L (40-220) mmol/L 03/05/25 03/05/25 03/05/25 Range/Units 02:03 05:47 07:23 WBC 16.41 H (4.50-10.00) 10*3/uL RBC 2.71 L (4.10-5.20) 10*6/uL Hgb 7.4 L (12.0-15.0) g/dL Hct 22.9 L (37.2-46.3) % Plt Count 580 H (140-440) 10*3/uL MPV 8.7 L (9.5-12.2) fL Immature Gran # 0.50 H (0.00-0.04) 10*3/uL Neutrophils # 13.87 H (1.80-7.70) 10*3/uL Eosinophils # 0.43 H (0.04-0.35) 10*3/uL Sodium (137-145) mmol/L Chloride (98-107) mmol/L BUN (7-17) mg/dL Creatinine (0.52-1.04) mg/dL Glucose (74-99) mg/dL POC Glucose (mg/dL) 140 H 155 H (70-110) mg/dL Urine Osmolality (400-1100) mOsm/kg Ur Random Sodium (40-220) mmol/L 03/05/25 03/05/25 03/05/25 Range/Units 07:23 11:16 16:03 WBC (4.50-10.00) 10*3/uL RBC (4.10-5.20) 10*6/uL Hgb (12.0-15.0) g/dL Hct (37.2-46.3) % Plt Count (140-440) 10*3/uL MPV (9.5-12.2) fL Immature Gran # (0.00-0.04) 10*3/uL Neutrophils # (1.80-7.70) 10*3/uL Eosinophils # (0.04-0.35) 10*3/uL Sodium 124 L (137-145) mmol/L Chloride 95 L (98-107) mmol/L BUN 105 H* (7-17) mg/dL Creatinine 1.71 H (0.52-1.04) mg/dL Glucose 127 H (74-99) mg/dL POC Glucose (mg/dL) 182 H 197 H (70-110) mg/dL Urine Osmolality (400-1100) mOsm/kg Ur Random Sodium (40-220) mmol/L Microbiology - Last 24 Hours (Table) 02/27/25 14:09 Blood Culture - Final Blood Assessment and Plan (1) Sepsis Current Visit: Yes Status: Acute Code(s): A41.9 - SEPSIS, UNSPECIFIED ORGANISM SNOMED Code(s): 29839910 (2) LISSETTE (acute kidney injury) Current Visit: Yes Status: Acute Code(s): N17.9 - ACUTE KIDNEY FAILURE, UNSPECIFIED SNOMED Code(s): 17252323 (3) UTI (urinary tract infection) Current Visit: Yes Status: Acute Code(s): N39.0 - URINARY TRACT INFECTION, SITE NOT SPECIFIED SNOMED Code(s): 04973785 (4) Leukocytosis Current Visit: Yes Status: Acute Code(s): D72.829 - ELEVATED WHITE BLOOD CELL COUNT, UNSPECIFIED SNOMED Code(s): 440362276 Plan: 1patient presented hospital with sepsis in this patient who did have tachyc ardia hypotension elevated white count meeting criteria for SIRS/sepsis source likely urinary in this patient has significantly positive UA along with urinary symptoms likely from enteric gram-negative pathogen keeping in mind history of cancer on chemo will need to cover for resistant gram-negative pathogen 2-patient did have a CT of abdominal pelvis mention worsening lymphadenopathy and concern for hepatic metastasis right lower abdominal wall hematoma, 3the patient is afebrile white count has trending down and is more likely related to her lower abdominal hematoma/malignancy as the patient has received adequate antibiotic therapy, will go ahead and discontinue Rocephin and Diflucan and monitor the patient closely off antibiotic therapy Dictation was produced using [employer] dictation software. please excuse any grammatical, word or spelling errors. Time with Patient: Less than 30
[2025-03-05 20:17] LABS: Glucose,Whole Blood 279 mg/dL (70-110)
[2025-03-05] MEDS: HYDROmorphone 1 MG/ML 1 ML SYRINGE IVP PRN (20:59)
[2025-03-06 06:28] LABS: Glucose,Whole Blood 161 mg/dL (70-110)
[2025-03-06 08:10] LABS: Basophils # (A) 0.04 10*3/uL (0.00-0.10); Basophils % (A) 0.2 %; Eosinophils # (A) 0.38 10*3/uL (0.04-0.35); Eosinophils % (A) 2.2 %; HCT 22.7 % (37.2-46.3); HGB 7.3 g/dL (12.0-15.0); Lymphocytes % (A) 4.6 %; MCH 26.6 pg (27.0-32.0); MCHC 32.2 g/dL (32.0-37.0); MCV 82.8 fL (80.0-97.0); Mean Platelet Volume 9.5 fL (9.5-12.2); Monocytes # (A) 0.67 10*3/uL (0.20-1.00); Monocytes % (A) 3.9 %; Neutrophils # (A) 14.94 10*3/uL (1.80-7.70); Neutrophils % (A) 86.6 %; Platelet Count 660 10*3/uL (140-440); RBC 2.74 10*6/uL (4.10-5.20); RDW 18.6 % (11.5-14.5); WBC 17.27 10*3/uL (4.50-10.00)
[2025-03-06 08:27] LABS: African American GFR (CKD) 44 (>60 ml/min/1.73 sqM); Anion Gap 10 mmol/L; Calcium 8.6 mg/dL (8.4-10.2); Carbon Dioxide 19 mmol/L (22-30); Chloride 95 mmol/L (98-107); Glucose 141 mg/dL (74-99); Non-African American GFR(CKD) 38 (>60 ml/min/1.73 sqM); Potassium 4.4 mmol/L (3.5-5.1); Sodium 124 mmol/L (137-145)
[2025-03-06 08:32] LABS: Blood Urea Nitrogen 101 mg/dL (7-17)
[2025-03-06 11:48] LABS: Glucose,Whole Blood 220 mg/dL (70-110)
--- NOTE | 2025-03-06 12:00 | P.PN ---
Subjective Patient is seen for follow-up for acute kidney injury and hyponatremia. Renal function fairly stable with serum creatinine at 1.5 today. Sodium is 124, stable Nausea slightly improved Objective - Vital Signs Vital signs: Vital Signs Temp 98.0 F 03/06/25 08:00 Pulse 78 03/06/25 08:00 Resp 18 03/06/25 08:00 BP 112/65 03/06/25 08:00 Pulse Ox 97 03/06/25 08:00 FiO2 Intake & Output 03/05/25 03/06/25 03/06/25 18:59 06:59 18:59 Intake Total 120 Output Total 450 Balance -330 Weight 145.5 kg 138.5 kg Intake: Oral 120 Output: Urine 450 Other: Voiding Method External Catheter Diaper # Voids 3 200 # Bowel Movements 1 1 - Exam Patient is awake, comfortable, no acute distress. Examination of the heart S1 and S2 Examination of the lungs bilateral breath sounds are heard Abdomen is soft obese Examination of lower extremities shows 1+ edema - Labs CBC & Chem 7: 03/06/25 07:17 03/06/25 07:17 Labs: Abnormal Lab Results - Last 24 Hours (Table) 03/05/25 03/05/25 03/06/25 Range/Units 16:03 20:16 06:26 WBC (4.50-10.00) 10*3/uL RBC (4.10-5.20) 10*6/uL Hgb (12.0-15.0) g/dL Hct (37.2-46.3) % MCH (27.0-32.0) pg Plt Count (140-440) 10*3/uL Immature Gran # (0.00-0.04) 10*3/uL Neutrophils # (1.80-7.70) 10*3/uL Lymphocytes # (0.90-5.00) 10*3/uL Eosinophils # (0.04-0.35) 10*3/uL Sodium (137-145) mmol/L Chloride (98-107) mmol/L Carbon Dioxide (22-30) mmol/L BUN (7-17) mg/dL Creatinine (0.52-1.04) mg/dL Glucose (74-99) mg/dL POC Glucose (mg/dL) 197 H 279 H 161 H (70-110) mg/dL 03/06/25 03/06/25 03/06/25 Range/Units 07:17 07:17 11:47 WBC 17.27 H (4.50-10.00) 10*3/uL RBC 2.74 L (4.10-5.20) 10*6/uL Hgb 7.3 L (12.0-15.0) g/dL Hct 22.7 L (37.2-46.3) % MCH 26.6 L (27.0-32.0) pg Plt Count 660 H (140-440) 10*3/uL Immature Gran # 0.44 H (0.00-0.04) 10*3/uL Neutrophils # 14.94 H (1.80-7.70) 10*3/uL Lymphocytes # 0.80 L (0.90-5.00) 10*3/uL Eosinophils # 0.38 H (0.04-0.35) 10*3/uL Sodium 124 L (137-145) mmol/L Chloride 95 L (98-107) mmol/L Carbon Dioxide 19 L (22-30) mmol/L BUN 101 H* (7-17) mg/dL Creatinine 1.52 H (0.52-1.04) mg/dL Glucose 141 H (74-99) mg/dL POC Glucose (mg/dL) 220 H (70-110) mg/dL Assessment and Plan Assessment: 1. 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 Urine osmolality 252. Sodium 123 this morning. Status post sodium chloride tab. Cortisol level high. TSH normal. Urine osmolality 252. Status post [facility] on 02/25/2025 2. Malignant melanoma with metastatic disease to liver and lymph nodes. 3. Acute kidney injury secondary to ATN secondary to severe sepsis. Baseline creatinine near 1 from December 2024. Creatinine 2.96 on admission and improved to 1.06 - worsened again due to acute blood loss anemia. Stabilized at 1.6 now. BUN disproportionately elevated from urea. 4. UTI on antibiotics. Urine culture positive for Proteus. 5. Metabolic acidosis secondary to acute kidney injury and IV fluids. Was also on metformin. On oral bicarb. 6. Diabetes mellitus. 7. Anemia. Iron deficiency noted. s/p IV iron. Having vaginal bleeding. Hemoglobin 7.3 today. 8. Mild volume overload. Plan: Continue off of urea Continue midodrine Continue with oral sodium bicarb Stable for discharge from nephrology standpoint. Repeat labs as outpatient in 1 to 2 days postdischarge.
[2025-03-06] MEDS: diphenhydrAMINE 50 MG/ML 1 ML VIAL IVP STA (12:54)
--- NOTE | 2025-03-06 15:06 | P.PN ---
Subjective Patient is a 55-year-old female with a past medical history of hypertension, hyperlipidemia, diabetes type 2 insulin-dependent, metastatic malignant melanoma with mets to liver and lymph nodes, depression, prior history of smoking, GERD and diabetic peripheral neuropathy and history of SVT, prior history of smoking. Patient presents to ER from Dr. Botello's office due to abnormal labs. Patient was also having generalized weakness. She was in the office for her third infusion. She had blood workup done yesterday which showed multiple abnormalities and was recommended to go to ER. She is also having generalized body pains. Also worsening shortness of breath. No chest pain. She does have decreased appetite and not eating well., No nausea no episodes of vomiting. EKG on admission showed sinus rhythm with heart rate 62 Chest x-ray showed no focal consolidation. Elevation of the right hemidiaphragm which is increased from prior exam. Consider sniff test to evaluate for diaphragmatic paralysis. Laboratory data showed WBC 26.7 hemoglobin 8.8 and platelets 634 MCV 75.3 Sodium 118, potassium 4.1 chloride 93 bicarb is 10 BUN 52 and creatinine 2.96, blood sugar 103 lactic acid 1.1 phosphorus 5.8 alk phos 241 proBNP 2350 lipase 441 Urinalysis showed light yellow turbid with large blood nitrite positive leukocyte esterase large elevated RBCs and WBCs. Influenza A B RSV and COVID-19 PCR not detected. 02/22/2025 Patient is in the MICU. Patient is requiring pressor support with Levophed. Resting in the bed. Awake alert and oriented. Currently on room air. Afebrile overnight. Denied any complaints of nausea vomiting abdominal pain or diarrhea. Lab data showed WBC trending down to 21.7 hemoglobin 8.2 and platelets 0.91 sodium improved to 121 potassium 4.5 chloride 101 bicarb is 6 BUN 54 and creatinine 2.72. Antibiotics were changed to cefazolin 2 g Q12. Nephrology and ID is on board. 02/24/2024 Patient is needing intensive care unit. Awake alert and oriented x 3. Currently on room air. Patient is off pressor support since 5 AM this morning. Sodium level improved to 127 today. Patient is on antibiotics in the form of cefepime. Urine culture showed Proteus Mirabella's. Laboratory data showed WBC 17.7 hemoglobin 7.4 and platelets 505 sodium 123 potassium 3.6 chloride 98 bicarb is 15 BUN 44 and creatinine 1.98, calcium 8.3. 02/24/2025 Patient is in MICU. Ureteric and ovarian x 3. Currently on room air. No c omplaints of chest pain or shortness of breath. Sodium level improved to 127 today. Patient is also been antibiotics for urinary tract infection with ceftriaxone. Urine culture growing Proteus mirabilis. Patient has been afebrile. Patient was given urea 15 g p.o. twice daily. Continued on insulin regimen. Laboratory test showed WBC 16.1 hemoglobin 7.3 and platelets 543 sodium 127 potassium 3.8 chloride 98 bicarb is 15 BUN 4020 creatinine 1.35 and blood sugar 82 magnesium 1.7 albumin 2.4. 02/25/2025 Patient is resting in the bed. Awake alert and oriented. No complaints of chest pain or shortness of breath. Tolerating oral diet. Patient is off IV fluids. He was started on urea and patient was also given Samsca. Sodium level is 126 today. Other laboratory data showed sodium 126 potassium 3.9 chloride 97 bicarb is 19 BUN 56 and creatinine 1.06 and blood sugar 125. Magnesium 1.9. Patient is getting ceftriaxone for urinary tract infection. 02/26 Patient lying in bed comfortable no chest pain or dyspnea No vomiting, she has average appetite No abdominal abdominal pain Patient has ongoing dysuria. 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 As per patient she was getting chemotherapy since November 2024. Her oncologist as outpatient is Dr. Botello. She had 3 cycles of chemotherapy so far. Her Cozaar Aldactone and metformin remain on hold 02/27 Clinically looks the same, awake and alert Main complaint is dysuria which is going on for 1.5 months which looks chronic related to her vaginal mass She is following up with hematology/oncology. Also she follow-up with the surgeon at [facility] with no plans for surgical intervention. Also patient confirms to me that she follow-up with track watchman in [place]. She has right foot boot on. She says she has fracture on November 26 and she is going to follow-up with her orthopedic in 1 to 2 weeks after discharge. No other new complaints Vital stable and afebrile. 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 Both of these lesions has progressed today She is developing more signs of infection with hypotension, leukocytosis went up to 19.6. Creatinine went up to 1.8, systolic blood pressure dropped from 140s down to 100 but slightly less. Patient thought secondary to have urinary tract infection and she is on ceftriaxone 2 g. Diflucan with loading dose added today. No respiratory symptoms no abdominal pain or diarrhea. No rash. No other source of infection She is also on Cardizem 120 and metoprolol 50 mg for A-fib. Also she is on Eliquis 2.5 mg. Hemoglobin dropped today to 6.6. With no evidence of bleeding. She is getting unit of blood transfusion. Posttransfusion Lasix was held because of borderline low blood pressure. After the blood pressure improved. Also she has CT of the abdomen and pelvis showing generalized lymphadenopathy and around the aorta and retrocaval as well as along the iliac chain Most likely related to her metastatic disease. There is evidence also of hepatic metastasis, hematology/oncology team on the case. Patient was informed with some of the CT findings as above 03/01 Patient is still feeling lethargic. She has large fullness with a bruise in the lower abdomen, she is morbidly obese and she has already pendulous abdomen, the area is standing in her. Possible bleeding. Hold Eliquis and check abdominal ultrasound She is s/p 1 unit of blood transfusion yesterday, hemoglobin went up 6.6 up to 7.4. She is also on ceftriaxone and Diflucan for suspected UTI She is a known case of malignant melanoma with evidence of metastasis to the abdominal lymphadenopathy and liver. Today at bedside throughout the encounter 03/02 Patient today feels better She has pain at the hematoma site in the lower abdomen Hemoglobin was 7.77.3 and rechecked it was 8.3, she is status post blood transfusion yesterday for hemoglobin dropped to 6.8 No other new signs symptoms Eliquis dose was lowered from 5 down to 2.5 mg for her history of A-fib She remains on ceftriaxone and Diflucan yesterday still has leukocytosis about 21,000 Pulmonary service signed off the case today 03/03 Patient has nausea but no vomiting, she feels dyspepsia Pain in the lower abdomen slightly better per patient rubber heel and sole press tender and 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 She looks tired and fatigue Hemoglobin stable at 7.6, WBC down to 18,000 creatinine actually went down to 1.6 She is on ceftriaxone Diflucan, Eliquis 2.5 mg scheduled for renal dose and m etoprolol 5 mg Patient advised about fluid restriction 03/04 Patient was with several year nausea vomiting yesterday controlled with scopolamine patch and Compazine and she needed another Compazine dose this morning because of vomiting but now controlled because of this we are going to discontinue scopolamine and keep monitoring Also she is hyponatremic 123 yesterday and low urine sodium, they were trying to get her up to the commode yesterday but she was very weak and her legs gave way and she has to be lowered to the ground, blood pressure was soft 90s over 40s. However this morning there is maybe some improvement with her blood pressure in the systolic reading is more than 100. She is feeling little bit stronger. And we checked her orthostatic vitals while lying and sitting up and they were negative. We will check another urine sodium today and serum sodium. And will decide if patient will need more IV bolus or IV fluids. Her Eliquis remains on hold, her lower abdominal hematoma is improving less discoloration and less pain/tenderness discussed with staff 03/05 Patient today feels better she is up in bed and she looks better and more energetic. Patient asking when she will be discharged home Her pain and bruise on the lower abdominal are stable and improving slowly and gradually. Still has vaginal symptoms but today she has less vaginal bleeding for the first time as she explains but has not stopped completely. Blood pressure above 100 which looks stable. Sodium slightly up 123 up to 124 and creatinine 1.6. Leukocyte count is coming down to 16,000 and hemoglobin do wn to 7.4 from 7.6 She remains on ceftriaxone and Diflucan. Eliquis remains on hold. She is still giving sodium bicarb tablets per nephrology team 03/06 Patient still feels stronger, she was to go home from yesterday Patient denies any other new symptoms. She has ongoing vaginal mass related to her melanoma with evidence of metastasis intra-abdominal the and into the lymph node. She has been treated with antibiotics. She finished her course yesterday we will keep monitoring. Currently she is afebrile. She has chronic leukocytosis. Also her labs are stable low sodium 124, creatinine improved down to 1.52. Hemoglobin is stable at 7.3 Eliquis remains on hold and her intra-abdominal wall hematoma is improving. Possible resume Marilu upon discharge Sodium also stable creatinine improving, I discussed the case with Dr. Wood who cleared her for discharge today However patient was vomiting despite taking medication therefore we are going to monitor her today. Scopolamine patch and Benadryl was added Possible discharge in 24 to 48 hours if she keeps improved Objective - Vital Signs Vital signs: Vital Signs Temp 97.7 F 03/06/25 12:00 Pulse 73 03/06/25 12:00 Resp 17 03/06/25 12:00 BP 96/62 03/06/25 12:00 Pulse Ox 98 03/06/25 12:00 FiO2 Intake & Output 03/05/25 03/06/25 03/06/25 18:59 06:59 18:59 Intake Total 120 240 Output Total 450 Balance -330 240 Weight 145.5 kg 138.5 kg Intake: Oral 120 240 Output: Urine 450 Other: Voiding Method External Catheter Diaper # Voids 3 200 # Bowel Movements 1 1 - Exam -GENERAL: The patient is alert and oriented x3, not in any acute distress. Well developed, well nourished. Obese HEENT: Pupils are round and equally reacting to light. EOMI. No scleral icterus. No conjunctival pallor. Normocephalic, atraumatic. No pharyngeal erythema. No thyromegaly. CARDIOVASCULAR: S1 and S2 present. No murmurs, rubs, or gallops. PULMONARY: Chest is clear to auscultation, no wheezing , no crackles. ABDOMEN: Soft, nontender, nondistended, normoactive bowel sounds. No palpable organomegaly. MUSCULOSKELETAL: No joint swelling or deformity. EXTREMITIES: No cyanosis, clubbing, or pedal edema. NEUROLOGICAL: Gross neurological examination did not reveal any focal deficits. SKIN: No rashes. no petechiae. - Labs CBC & Chem 7: 03/06/25 07:17 03/06/25 07:17 Labs: Abnormal Lab Results - Last 24 Hours (Table) 03/05/25 03/05/25 03/06/25 Range/Units 16:03 20:16 06:26 WBC (4.50-10.00) 10*3/uL RBC (4.10-5.20) 10*6/uL Hgb (12.0-15.0) g/dL Hct (37.2-46.3) % MCH (27.0-32.0) pg Plt Count (140-440) 10*3/uL Immature Gran # (0.00-0.04) 10*3/uL Neutrophils # (1.80-7.70) 10*3/uL Lymphocytes # (0.90-5.00) 10*3/uL Eosinophils # (0.04-0.35) 10*3/uL Sodium (137-145) mmol/L Chloride (98-107) mmol/L Carbon Dioxide (22-30) mmol/L BUN (7-17) mg/dL Creatinine (0.52-1.04) mg/dL Glucose (74-99) mg/dL POC Glucose (mg/dL) 197 H 279 H 161 H (70-110) mg/dL 03/06/25 03/06/25 03/06/25 Range/Units 07:17 07:17 11:47 WBC 17.27 H (4.50-10.00) 10*3/uL RBC 2.74 L (4.10-5.20) 10*6/uL Hgb 7.3 L (12.0-15.0) g/dL Hct 22.7 L (37.2-46.3) % MCH 26.6 L (27.0-32.0) pg Plt Count 660 H (140-440) 10*3/uL Immature Gran # 0.44 H (0.00-0.04) 10*3/uL Neutrophils # 14.94 H (1.80-7.70) 10*3/uL Lymphocytes # 0.80 L (0.90-5.00) 10*3/uL Eosinophils # 0.38 H (0.04-0.35) 10*3/uL Sodium 124 L (137-145) mmol/L Chloride 95 L (98-107) mmol/L Carbon Dioxide 19 L (22-30) mmol/L BUN 101 H* (7-17) mg/dL Creatinine 1.52 H (0.52-1.04) mg/dL Glucose 141 H (74-99) mg/dL POC Glucose (mg/dL) 220 H (70-110) mg/dL Assessment and Plan Assessment: Lower abdominal hematoma suspected with severe anemia required unit of blood transfusion on 03/01 Severe hyponatremia with sodium level 118 on admission-hypoosmolar hyponatremia due to decreased oral intake and LISSETTE. Acute kidney injury. Possible ATN. SIADH cannot be excluded due to underlying malignancy. Creatinine 2.96 on admission baseline 1.0 Non-anion gap metabolic acidosis Acute urinary tract infection with Proteus Mirabella's. Mild pancreatitis with lipase level 441 Malignant melanoma with mets to liver and lymph nodes, generalized intra- abdominal lymphadenopathy and hepatic metastasis. On chemoinfusion and is on follow-up with oncology. Diabetes type 2 insulin-dependent Diabetic peripheral neuropathy History of SVT Paroxysmal atrial fibrillation Osteoarthritis Hypertension Hyperlipidemia GERD Depression Prior history of smoking Microcytic anemia rule out iron deficiency. 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 Check blood pressure, urine sodium level Monitor creatinine Nephrology team consult Hematology/oncology team consult Continue holding metformin, Aldactone and Cozaar Hematology/oncology team on the case Critical care team consult sign of the case on 03/02 GI prophylaxis: Protonix DVT prophylaxis: Eliquis, currently on hold Physical therapist recommended home versus subacute rehab Prognosis is guarded
--- NOTE | 2025-03-06 16:17 | P.PN ---
Subjective Progress Note Date: 03/06/25 No acute events overnight. Having persisting nausea thats worse with movement. AC has been held due to abdominal hematoma noted on US. Hgb 7.3 today. Objective - Vital Signs Vital signs: Vital Signs Temp 98.0 F 03/06/25 08:00 Pulse 78 03/06/25 08:00 Resp 18 03/06/25 08:00 BP 112/65 03/06/25 08:00 Pulse Ox 97 03/06/25 08:00 FiO2 Intake & Output 03/05/25 03/06/25 03/06/25 18:59 06:59 18:59 Intake Total 120 Output Total 450 Balance -330 Weight 145.5 kg 138.5 kg Intake: Oral 120 Output: Urine 450 Other: Voiding Method External Catheter Diaper # Voids 3 200 # Bowel Movements 1 1 - Constitutional General appearance: Present: no acute distress, obese - EENT Eyes: Present: anicteric sclerae, EOMI ENT: Present: hearing grossly normal - Respiratory Details: breathing is even and unlabored - Cardiovascular Details: skin warm and dry - Gastrointestinal General gastrointestinal: Absent: tenderness - Integumentary Integumentary: Present: pale. Absent: cyanotic - Musculoskeletal Musculoskeletal: Present: generalized weakness - Psychiatric Psychiatric: Present: A&O x's 3 - Labs CBC & Chem 7: 03/06/25 07:17 03/06/25 07:17 Labs: Abnormal Lab Results - Last 24 Hours (Table) 03/05/25 03/05/25 03/06/25 Range/Units 16:03 20:16 06:26 WBC (4.50-10.00) 10*3/uL RBC (4.10-5.20) 10*6/uL Hgb (12.0-15.0) g/dL Hct (37.2-46.3) % MCH (27.0-32.0) pg Plt Count (140-440) 10*3/uL Immature Gran # (0.00-0.04) 10*3/uL Neutrophils # (1.80-7.70) 10*3/uL Lymphocytes # (0.90-5.00) 10*3/uL Eosinophils # (0.04-0.35) 10*3/uL Sodium (137-145) mmol/L Chloride (98-107) mmol/L Carbon Dioxide (22-30) mmol/L BUN (7-17) mg/dL Creatinine (0.52-1.04) mg/dL Glucose (74-99) mg/dL POC Glucose (mg/dL) 197 H 279 H 161 H (70-110) mg/dL 03/06/25 03/06/25 Range/Units 07:17 07:17 WBC 17.27 H (4.50-10.00) 10*3/uL RBC 2.74 L (4.10-5.20) 10*6/uL Hgb 7.3 L (12.0-15.0) g/dL Hct 22.7 L (37.2-46.3) % MCH 26.6 L (27.0-32.0) pg Plt Count 660 H (140-440) 10*3/uL Immature Gran # 0.44 H (0.00-0.04) 10*3/uL Neutrophils # 14.94 H (1.80-7.70) 10*3/uL Lymphocytes # 0.80 L (0.90-5.00) 10*3/uL Eosinophils # 0.38 H (0.04-0.35) 10*3/uL Sodium 124 L (137-145) mmol/L Chloride 95 L (98-107) mmol/L Carbon Dioxide 19 L (22-30) mmol/L BUN 101 H* (7-17) mg/dL Creatinine 1.52 H (0.52-1.04) mg/dL Glucose 141 H (74-99) mg/dL POC Glucose (mg/dL) (70-110) mg/dL Assessment and Plan (1) LISSETTE (acute kidney injury) Current Visit: Yes Status: Acute Code(s): N17.9 - ACUTE KIDNEY FAILURE, UNSPECIFIED SNOMED Code(s): 53337988 (2) Hyponatremia Current Visit: Yes Status: Acute Code(s): E87.1 - HYPO-OSMOLALITY AND HYPONATREMIA SNOMED Code(s): 85861616 (3) Sepsis Current Visit: Yes Status: Acute Code(s): A41.9 - SEPSIS, UNSPECIFIED ORGANISM SNOMED Code(s): 37371585 (4) Melanoma Current Visit: Yes Status: Acute Priority: High Code(s): C43.9 - MALIGNANT MELANOMA OF SKIN, UNSPECIFIED SNOMED Code(s): 446557324 Plan: #Septic shock secondary to UTI - Improved with antibiotics along with supportive care with IV fluids and Levophed - Continues on ceftriaxone per infectious disease - Repeat urine and blood cultures due to leukocytosis on 02/27/2025 were negative #Hyponatremia - Seen by nephrology and has received Samsca during this admission - 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 Continue to monitor CBC #N/V: Persisting n/v, exacerbated by movement. -Continues compazine, reglan and zofran prn. Scoplomine patch was ordered, but appears it was d/c. -She is tolerating some oral intake, but appetite is diminished #Metastatic melanoma - Received 3 cycles of Opdualag with the most recent on 02/17/2025 - CT abdomen/pelvis inpatient revealed known metastases to the liver and abdominal/iliac lymphadenopathy. This scan was also compared to scans obtained in November 2023, as her PET CT prior to initiation of treatment was obtained at [facility] and was not used for comparison, so we would not consider this treatment failure at this time. We will plan on repeating PET/CT outpatient to assess response to immunotherapy
[2025-03-06 16:59] LABS: Glucose,Whole Blood 239 mg/dL (70-110)
[2025-03-06 19:58] LABS: Glucose,Whole Blood 254 mg/dL (70-110)
--- NOTE | 2025-03-06 21:29 | P.PN ---
Subjective Progress Note Date: 03/06/25 Principal diagnosis: Reason for follow-up is sepsis and UTI Patient is a 55-year-old female with a past medical history significant for stage IV malignant melanoma on chemo, Diabetes Mellitus, GERD/Reflux, Hyperlipidemia, Hypertension, Osteoarthritis (OA) presenting to the hospital for evaluation of generalized weakness did have urinary symptoms a positive UA concerning for symptomatic UTI with sepsis requiring admission by ICU. On today's evaluation that is 03/06/2025, the patient continues to be afebrile, the patient is on room air and breathing comfortably, the Pt denies having any chest pain or cough, the patient has been complaining of some nausea but no v omiting lower abdominal discomfort has decreased in intensity. Patient white count 17.27 creatinine 1.52 Objective - Vital Signs Vital signs: Vital Signs Temp 97.7 F 03/06/25 12:00 Pulse 73 03/06/25 14:00 Resp 17 03/06/25 14:00 BP 96/62 03/06/25 12:00 Pulse Ox 98 03/06/25 12:00 FiO2 Intake & Output 03/05/25 03/06/25 03/06/25 18:59 06:59 18:59 Intake Total 120 240 Output Total 450 Balance -330 240 Weight 145.5 kg 138.5 kg Intake: Oral 120 240 Output: Urine 450 Other: Voiding Method External Catheter Diaper Diaper # Voids 3 200 # Bowel Movements 1 1 - Exam GENERAL DESCRIPTION: A middle-age female lying in bed in no distress RESPIRATORY SYSTEM: Unlabored breathing , decreased breath sounds at bases HEART: S1 S2 regular rate and rhythm , ABDOMEN: Soft , lower abdominal wall bruising hematoma EXTREMITIES: No edema feet - Labs CBC & Chem 7: 03/06/25 07:17 03/06/25 07:17 Labs: Abnormal Lab Results - Last 24 Hours (Table) 03/05/25 03/05/25 03/06/25 Range/Units 16:03 20:16 06:26 WBC (4.50-10.00) 10*3/uL RBC (4.10-5.20) 10*6/uL Hgb (12.0-15.0) g/dL Hct (37.2-46.3) % MCH (27.0-32.0) pg Plt Count (140-440) 10*3/uL Immature Gran # (0.00-0.04) 10*3/uL Neutrophils # (1.80-7.70) 10*3/uL Lymphocytes # (0.90-5.00) 10*3/uL Eosinophils # (0.04-0.35) 10*3/uL Sodium (137-145) mmol/L Chloride (98-107) mmol/L Carbon Dioxide (22-30) mmol/L BUN (7-17) mg/dL Creatinine (0.52-1.04) mg/dL Glucose (74-99) mg/dL POC Glucose (mg/dL) 197 H 279 H 161 H (70-110) mg/dL 03/06/25 03/06/25 03/06/25 Range/Units 07:17 07:17 11:47 WBC 17.27 H (4.50-10.00) 10*3/uL RBC 2.74 L (4.10-5.20) 10*6/uL Hgb 7.3 L (12.0-15.0) g/dL Hct 22.7 L (37.2-46.3) % MCH 26.6 L (27.0-32.0) pg Plt Count 660 H (140-440) 10*3/uL Immature Gran # 0.44 H (0.00-0.04) 10*3/uL Neutrophils # 14.94 H (1.80-7.70) 10*3/uL Lymphocytes # 0.80 L (0.90-5.00) 10*3/uL Eosinophils # 0.38 H (0.04-0.35) 10*3/uL Sodium 124 L (137-145) mmol/L Chloride 95 L (98-107) mmol/L Carbon Dioxide 19 L (22-30) mmol/L BUN 101 H* (7-17) mg/dL Creatinine 1.52 H (0.52-1.04) mg/dL Glucose 141 H (74-99) mg/dL POC Glucose (mg/dL) 220 H (70-110) mg/dL Assessment and Plan (1) Sepsis Current Visit: Yes Status: Acute Code(s): A41.9 - SEPSIS, UNSPECIFIED ORGANISM SNOMED Code(s): 17503274 (2) LISSETTE (acute kidney injury) Current Visit: Yes Status: Acute Code(s): N17.9 - ACUTE KIDNEY FAILURE, UNSPECIFIED SNOMED Code(s): 66975158 (3) UTI (urinary tract infection) Current Visit: Yes Status: Acute Code(s): N39.0 - URINARY TRACT INFECTION, SITE NOT SPECIFIED SNOMED Code(s): 09032786 (4) Leukocytosis Current Visit: Yes Status: Acute Code(s): D72.829 - ELEVATED WHITE BLOOD CELL COUNT, UNSPECIFIED SNOMED Code(s): 129637209 Plan: 1patient presented hospital with sepsis in this patient who did have tachycardi a hypotension elevated white count meeting criteria for SIRS/sepsis source likely urinary in this patient has significantly positive UA along with urinary symptoms likely from enteric gram-negative pathogen keeping in mind history of cancer on chemo will need to cover for resistant gram-negative pathogen 2-patient did have a CT of abdominal pelvis mention worsening lymphadenopathy and concern for hepatic metastasis right lower abdominal wall hematoma, 3the patient is afebrile and has received adequate antibiotic therapy however antibiotic were discontinued yesterday and will monitor the patient closely off antibiotic therapy at this point discussed with admitting physician as well Dictation was produced using [employer] dictation software. please excuse any grammatical, word or spelling errors. Time with Patient: Less than 30
[2025-03-06] MEDS: SCOPOLAMINE 1 MG/72 HR PATCH TRANSDERM SCH (23:39)
[2025-03-07 06:10] LABS: Glucose,Whole Blood 186 mg/dL (70-110)
--- NOTE | 2025-03-07 10:24 | P.PN ---
Subjective Progress Note Date: 03/07/25 Principal diagnosis: Reason for follow-up is sepsis and UTI Patient is a 55-year-old female with a past medical history significant for stage IV malignant melanoma on chemo, Diabetes Mellitus, GERD/Reflux, Hyperlipidemia, Hypertension, Osteoarthritis (OA) presenting to the hospital for evaluation of generalized weakness did have urinary symptoms a positive UA concerning for symptomatic UTI with sepsis requiring admission by ICU. On today's evaluation that is 03/07/2025, Patient is afebrile patient is currently on room air and denies having any shortness of breath, the patient denies any chest pain or cough, the patient did have some nausea but no vomiting lower abdominal pain has decreased in intensity no diarrhea. Labs are pending from this morning Objective - Vital Signs Vital signs: Vital Signs Temp 97.8 F 03/07/25 08:00 Pulse 79 03/07/25 08:00 Resp 18 03/07/25 08:00 BP 105/70 03/07/25 08:00 Pulse Ox 96 03/07/25 08:00 FiO2 Intake & Output 03/06/25 03/07/25 03/07/25 18:59 06:59 18:59 Intake Total 240 Balance 240 Weight 138.5 kg Intake: Oral 240 Other: Voiding Method Diaper Diaper # Voids 3 1 # Bowel Movements 1 - Exam GENERAL DESCRIPTION: A middle-age female lying in bed in no distress RESPIRATORY SYSTEM: Unlabored breathing , decreased breath sounds at bases HEART: S1 S2 regular rate and rhythm , ABDOMEN: Soft , lower abdominal wall bruising hematoma EXTREMITIES: No edema feet - Labs CBC & Chem 7: 03/06/25 07:17 03/06/25 07:17 Labs: Abnormal Lab Results - Last 24 Hours (Table) 03/06/25 03/06/25 03/06/25 Range/Units 11:47 16:57 19:56 POC Glucose (mg/dL) 220 H 239 H 254 H (70-110) mg/dL 03/07/25 Range/Units 06:01 POC Glucose (mg/dL) 186 H (70-110) mg/dL Assessment and Plan (1) Sepsis Current Visit: Yes Status: Acute Code(s): A41.9 - SEPSIS, UNSPECIFIED ORGANISM SNOMED Code(s): 24724112 (2) LISSETTE (acute kidney injury) Current Visit: Yes Status: Acute Code(s): N17.9 - ACUTE KIDNEY FAILURE, UNSPECIFIED SNOMED Code(s): 00914363 (3) UTI (urinary tract infection) Current Visit: Yes Status: Acute Code(s): N39.0 - URINARY TRACT INFECTION, SITE NOT SPECIFIED SNOMED Code(s): 30486906 (4) Leukocytosis Current Visit: Yes Status: Acute Code(s): D72.829 - ELEVATED WHITE BLOOD CELL COUNT, UNSPECIFIED SNOMED Code(s): 198827883 Plan: 1patient presented hospital with sepsis in this patient who did have tachycardia hypotension elevated white count meeting criteria for SIRS/sepsis source likely urinary in this patient has significantly positive UA along with urinary symptoms likely from enteric gram-negative pathogen keeping in mind history of cancer on chemo will need to cover for resistant gram-negative pathog en 2-patient did have a CT of abdominal pelvis mention worsening lymphadenopathy and concern for hepatic metastasis right lower abdominal wall hematoma, 3the patient is afebrile and has received adequate antibiotic therapy and currently doing well off antibiotics for the last few days recommend no antibiotic on discharge Dictation was produced using [employer] dictation software. please excuse any g rammatical, word or spelling errors. Time with Patient: Less than 30
[2025-03-07 11:52] LABS: Glucose,Whole Blood 241 mg/dL (70-110)
[2025-03-07 16:36] LABS: Glucose,Whole Blood 196 mg/dL (70-110)
--- NOTE | 2025-03-07 17:10 | P.PN ---
Subjective Patient is seen for follow-up for acute kidney injury and hyponatremia. Renal function fairly stable with serum creatinine at 1.5 yesterday. Sodium is 124, stable Nausea has improved. Labs not available from today Objective - Vital Signs Vital signs: Vital Signs Temp 97.8 F 03/07/25 08:00 Pulse 83 03/07/25 14:00 Resp 18 03/07/25 14:00 BP 105/70 03/07/25 08:00 Pulse Ox 96 03/07/25 08:00 FiO2 Intake & Output 03/06/25 03/07/25 03/07/25 18:59 06:59 18:59 Intake Total 240 Balance 240 Weight 138.5 kg 138.5 kg Intake: Oral 240 Other: Voiding Method Diaper Diaper Diaper # Voids 3 1 1 # Bowel Movements 1 1 - Exam Patient is awake, comfortable, no acute distress. Examination of the heart S1 and S2 Examination of the lungs bilateral breath sounds are heard Abdomen is soft obese Examination of lower extremities shows 1+ edema - Labs CBC & Chem 7: 03/06/25 07:17 03/06/25 07:17 Labs: Abnormal Lab Results - Last 24 Hours (Table) 03/06/25 03/07/25 03/07/25 Range/Units 19:56 06:01 11:50 POC Glucose (mg/dL) 254 H 186 H 241 H (70-110) mg/dL 03/07/25 Range/Units 16:34 POC Glucose (mg/dL) 196 H (70-110) mg/dL Assessment and Plan Assessment: 1. 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 Urine osmolality 252. Sodium 123 this morning. Status post sodium chloride tab, held now due to edema. Cortisol level not low. TSH normal. Urine osmolality 252. [facility] 2. Malignant melanoma with metastatic disease to liver and lymph nodes. 3. Acute kidney injury secondary to ATN secondary to severe sepsis. Baseline creatinine near 1 from December 2024. Creatinine 2.96 on admission and improved to 1.06 - worsened again due to acute blood loss anemia. Stabilized at 1.6 now. BUN disproportionately elevated from urea. 4. UTI on antibiotics. Urine culture positive for Proteus. 5. Metabolic acidosis secondary to acute kidney injury and IV fluids. Was also on metformin. On oral bicarb. 6. Diabetes mellitus. 7. Anemia. Iron deficiency noted. s/p IV iron. Having vaginal bleeding. Hemoglobin 7.3 yesterday 8. Mild volume overload. Plan: Continue off of urea as BUN had significantly increased. Continue midodrine Continue with oral sodium bicarb Add Lasix if serum sodium worsens Stable for discharge from nephrology standpoint. Repeat labs as outpatient in 1 to 2 days postdischarge.
[2025-03-07 20:00] LABS: Glucose,Whole Blood 233 mg/dL (70-110)
--- NOTE | 2025-03-07 22:56 | P.PN ---
Subjective Patient is a 55-year-old female with a past medical history of hypertension, hyperlipidemia, diabetes type 2 insulin-dependent, metastatic malignant melanoma with mets to liver and lymph nodes, depression, prior history of smoking, GERD and diabetic peripheral neuropathy and history of SVT, prior history of smoking. Patient presents to ER from Dr. Botello's office due to abnormal labs. Patient was also having generalized weakness. She was in the office for her third infusion. She had blood workup done yesterday which showed multiple abnormalities and was recommended to go to ER. She is also having generalized body pains. Also worsening shortness of breath. No chest pain. She does have decreased appetite and not eating well., No nausea no episodes of vomiting. EKG on admission showed sinus rhythm with heart rate 62 Chest x-ray showed no focal consolidation. Elevation of the right hemidiaphragm which is increased from prior exam. Consider sniff test to evaluate for diaphragmatic paralysis. Laboratory data showed WBC 26.7 hemoglobin 8.8 and platelets 634 MCV 75.3 Sodium 118, potassium 4.1 chloride 93 bicarb is 10 BUN 52 and creatinine 2.96, blood sugar 103 lactic acid 1.1 phosphorus 5.8 alk phos 241 proBNP 2350 lipase 441 Urinalysis showed light yellow turbid with large blood nitrite positive leukocyte esterase large elevated RBCs and WBCs. Influenza A B RSV and COVID-19 PCR not detected. 02/22/2025 Patient is in the MICU. Patient is requiring pressor support with Levophed. Resting in the bed. Awake alert and oriented. Currently on room air. Afebrile overnight. Denied any complaints of nausea vomiting abdominal pain or diarrhea. Lab data showed WBC trending down to 21.7 hemoglobin 8.2 and platelets 0.91 sodium improved to 121 potassium 4.5 chloride 101 bicarb is 6 BUN 54 and creatinine 2.72. Antibiotics were changed to cefazolin 2 g Q12. Nephrology and ID is on board. 02/24/2024 Patient is needing intensive care unit. Awake alert and oriented x 3. Currently on room air. Patient is off pressor support since 5 AM this morning. Sodium level improved to 127 today. Patient is on antibiotics in the form of cefepime. Urine culture showed Proteus Mirabella's. Laboratory data showed WBC 17.7 hemoglobin 7.4 and platelets 505 sodium 123 potassium 3.6 chloride 98 bicarb is 15 BUN 44 and creatinine 1.98, calcium 8.3. 02/24/2025 Patient is in MICU. Ureteric and ovarian x 3. Currently on room air. No c omplaints of chest pain or shortness of breath. Sodium level improved to 127 today. Patient is also been antibiotics for urinary tract infection with ceftriaxone. Urine culture growing Proteus mirabilis. Patient has been afebrile. Patient was given urea 15 g p.o. twice daily. Continued on insulin regimen. Laboratory test showed WBC 16.1 hemoglobin 7.3 and platelets 543 sodium 127 potassium 3.8 chloride 98 bicarb is 15 BUN 4020 creatinine 1.35 and blood sugar 82 magnesium 1.7 albumin 2.4. 02/25/2025 Patient is resting in the bed. Awake alert and oriented. No complaints of chest pain or shortness of breath. Tolerating oral diet. Patient is off IV fluids. He was started on urea and patient was also given Samsca. Sodium level is 126 today. Other laboratory data showed sodium 126 potassium 3.9 chloride 97 bicarb is 19 BUN 56 and creatinine 1.06 and blood sugar 125. Magnesium 1.9. Patient is getting ceftriaxone for urinary tract infection. 02/26 Patient lying in bed comfortable no chest pain or dyspnea No vomiting, she has average appetite No abdominal abdominal pain Patient has ongoing dysuria. 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 As per patient she was getting chemotherapy since November 2024. Her oncologist as outpatient is Dr. Botello. She had 3 cycles of chemotherapy so far. Her Cozaar Aldactone and metformin remain on hold 02/27 Clinically looks the same, awake and alert Main complaint is dysuria which is going on for 1.5 months which looks chronic related to her vaginal mass She is following up with hematology/oncology. Also she follow-up with the surgeon at [facility] with no plans for surgical intervention. 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 She has right foot boot on. She says she has fracture on November 26 and she is going to follow-up with her orthopedic in 1 to 2 weeks after discharge. No other new complaints Vital stable and afebrile. 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 Both of these lesions has progressed today She is developing more signs of infection with hypotension, leukocytosis went up to 19.6. Creatinine went up to 1.8, systolic blood pressure dropped from 140s down to 100 but slightly less. Patient thought secondary to have urinary tract infection and she is on ceftriaxone 2 g. Diflucan with loading dose added today. No respiratory symptoms no abdominal pain or diarrhea. No rash. No other source of infection She is also on Cardizem 120 and metoprolol 50 mg for A-fib. Also she is on Eliquis 2.5 mg. Hemoglobin dropped today to 6.6. With no evidence of bleeding. She is getting unit of blood transfusion. Posttransfusion Lasix was held because of borderline low blood pressure. After the blood pressure improved. Also she has CT of the abdomen and pelvis showing generalized lymphadenopathy and around the aorta and retrocaval as well as along the iliac chain Most likely related to her metastatic disease. There is evidence also of hepatic metastasis, hematology/oncology team on the case. Patient was informed with some of the CT findings as above 03/01 Patient is still feeling lethargic. She has large fullness with a bruise in the lower abdomen, she is morbidly obese and she has already pendulous abdomen, the area is standing in her. Possible bleeding. Hold Eliquis and check abdominal ultrasound She is s/p 1 unit of blood transfusion yesterday, hemoglobin went up 6.6 up to 7.4. She is also on ceftriaxone and Diflucan for suspected UTI She is a known case of malignant melanoma with evidence of metastasis to the abdominal lymphadenopathy and liver. 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 She looks tired and fatigue Hemoglobin stable at 7.6, WBC down to 18,000 creatinine actually went down to 1.6 She is on ceftriaxone Diflucan, Eliquis 2.5 mg scheduled for renal dose and m etoprolol 5 mg Patient advised about fluid restriction 03/04 Patient was with several year nausea vomiting yesterday controlled with scopolamine patch and Compazine and she needed another Compazine dose this morning because of vomiting but now controlled because of this we are going to discontinue scopolamine and keep monitoring Also she is hyponatremic 123 yesterday and low urine sodium, they were trying to get her up to the commode yesterday but she was very weak and her legs gave way and she has to be lowered to the ground, blood pressure was soft 90s over 40s. However this morning there is maybe some improvement with her blood pressure in the systolic reading is more than 100. She is feeling little bit stronger. And we checked her orthostatic vitals while lying and sitting up and they were negative. We will check another urine sodium today and serum sodium. And will decide if patient will need more IV bolus or IV fluids. Her Eliquis remains on hold, her lower abdominal hematoma is improving less discoloration and less pain/tenderness discussed with staff 03/05 Patient today feels better she is up in bed and she looks better and more energetic. Patient asking when she will be discharged home Her pain and bruise on the lower abdominal are stable and improving slowly and gradually. Still has vaginal symptoms but today she has less vaginal bleeding for the first time as she explains but has not stopped completely. Blood pressure above 100 which looks stable. Sodium slightly up 123 up to 124 and creatinine 1.6. Leukocyte count is coming down to 16,000 and hemoglobin do wn to 7.4 from 7.6 She remains on ceftriaxone and Diflucan. Eliquis remains on hold. She is still giving sodium bicarb tablets per nephrology team 03/06 Patient still feels stronger, she was to go home from yesterday Patient denies any other new symptoms. She has ongoing vaginal mass related to her melanoma with evidence of metastasis intra-abdominal the and into the lymph node. She has been treated with antibiotics. She finished her course yesterday we will keep monitoring. Currently she is afebrile. She has chronic leukocytosis. Also her labs are stable low sodium 124, creatinine improved down to 1.52. Hemoglobin is stable at 7.3 Eliquis remains on hold and her intra-abdominal wall hematoma is improving. Possible resume Marilu upon discharge Sodium also stable creatinine improving, I discussed the case with Dr. Wood who cleared her for discharge today However patient was vomiting despite taking medication therefore we are going to monitor her today. Scopolamine patch and Benadryl was added Possible discharge in 24 to 48 hours if she keeps improved 5/2 Patient was doing well today Had nausea vomiting controlled with Benadryl helped as well She was cleared for discharge by all consultants. After discharge today, patient left on her way to the car she felt generally weak and she fell so she came back, Patient now requesting subacute rehab which is going to be early next week Objective - Vital Signs Vital signs: Vital Signs Temp 97.7 F 03/07/25 20:00 Pulse 75 03/07/25 20:00 Resp 16 03/07/25 20:00 BP 113/65 03/07/25 20:00 Pulse Ox 96 03/07/25 20:00 FiO2 Intake & Output 03/07/25 03/07/25 03/08/25 06:59 18:59 06:59 Weight 138.5 kg 138.5 kg Other: Voiding Method Diaper Diaper Diaper # Voids 1 1 # Bowel Movements 1 1 - Exam -GENERAL: The patient is alert and oriented x3, not in any acute distress. Well developed, well nourished. Obese HEENT: Pupils are round and equally reacting to light. EOMI. No scleral icterus. No conjunctival pallor. Normocephalic, atraumatic. No pharyngeal erythema. No th yromegaly. CARDIOVASCULAR: S1 and S2 present. No murmurs, rubs, or gallops. PULMONARY: Chest is clear to auscultation, no wheezing , no crackles. ABDOMEN: Soft, nontender, nondistended, normoactive bowel sounds. No palpable organomegaly. MUSCULOSKELETAL: No joint swelling or deformity. EXTREMITIES: No cyanosis, clubbing, or pedal edema. NEUROLOGICAL: Gross neurological examination did not reveal any focal deficits. SKIN: No rashes. no petechiae. - Labs CBC & Chem 7: 03/06/25 07:17 03/06/25 07:17 Labs: Abnormal Lab Results - Last 24 Hours (Table) 03/07/25 03/07/25 03/07/25 Range/Units 06:01 11:50 16:34 POC Glucose (mg/dL) 186 H 241 H 196 H (70-110) mg/dL 03/07/25 Range/Units 19:59 POC Glucose (mg/dL) 233 H (70-110) mg/dL Assessment and Plan Assessment: Lower abdominal hematoma suspected with severe anemia required unit of blood transfusion on 03/01 Severe hyponatremia with sodium level 118 on admission-hypoosmolar hyponatremia due to decreased oral intake and LISSETTE. Acute kidney injury. Possible ATN. SIADH cannot be excluded due to underlying malignancy. Creatinine 2.96 on admission baseline 1.0 Non-anion gap metabolic acidosis Acute urinary tract infection with Proteus Mirabella's. Mild pancreatitis with lipase level 441 Malignant melanoma with mets to liver and lymph nodes, generalized intra- abdominal lymphadenopathy and hepatic metastasis. On chemoinfusion and is on follow-up with oncology. Diabetes type 2 insulin-dependent Diabetic peripheral neuropathy History of SVT Paroxysmal atrial fibrillation Osteoarthritis Hypertension Hyperlipidemia GERD Depression Prior history of smoking Microcytic anemia rule out iron deficiency. Hemoglobin 8.8 on admission morbid obesity Plan: Continue with the current antiemetics Hold Eliquis 2.5 mg, keep monitoring hemoglobin and the hematoma Discontinue antibiotics with ceftriaxone and Diflucan as per ID team on the manager case sodium level, i but was low. Check blood pressure, urine sodium level Monitor creatinine Nephrology team consult Hematology/oncology team consult Continue holding metformin, Aldactone and Cozaar Hematology/oncology team on the case Critical care team consult sign of the case on 03/02 GI prophylaxis: Protonix DVT prophylaxis: Eliquis, currently on hold Physical therapist recommended home versus subacute rehab Prognosis is guarded
[2025-03-08 05:58] LABS: Glucose,Whole Blood 183 mg/dL (70-110)
[2025-03-08 11:48] LABS: Glucose,Whole Blood 217 mg/dL (70-110)
--- NOTE | 2025-03-08 14:04 | P.PN ---
Subjective Progress Note Date: 03/08/25 Patient is seen for follow-up for acute kidney injury and hyponatremia. Renal function fairly stable with serum creatinine at 1.5. Patient is awake, comfortable, no acute distress. Examination of the heart S1 and S2 Examination of the lungs bilateral breath sounds are heard Abdomen is soft obese Examination of lower extremities shows 1+ edema Objective - Vital Signs Vital signs: Vital Signs Temp 98.4 F 03/08/25 08:00 Pulse 66 03/08/25 08:00 Resp 16 03/08/25 08:00 BP 134/64 03/08/25 08:00 Pulse Ox 100 03/08/25 08:00 FiO2 Intake & Output 03/07/25 03/08/25 03/08/25 18:59 06:59 18:59 Weight 138.5 kg 138 kg Other: Voiding Method Diaper Diaper Diaper # Voids 1 1 1 # Bowel Movements 1 1 1 - Labs CBC & Chem 7: 03/06/25 07:17 03/06/25 07:17 Labs: Abnormal Lab Results - Last 24 Hours (Table) 03/07/25 03/07/25 03/07/25 Range/Units 11:50 16:34 19:59 POC Glucose (mg/dL) 241 H 196 H 233 H (70-110) mg/dL 03/08/25 Range/Units 05:54 POC Glucose (mg/dL) 183 H (70-110) mg/dL Assessment and Plan Assessment: 1. 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 Urine osmolality 252. Sodium 124 on 03/06. Status post sodium chloride tab, held now due to edema. Cortisol level not low. TSH normal. Urine osmolality 252. Status post Samsca on 02/25/2025 2. Malignant melanoma with metastatic disease to liver and lymph nodes. 3. Acute kidney injury secondary to ATN secondary to severe sepsis. Baseline creatinine near 1 from December 2024. Creatinine 2.96 on admission and improved to 1.06 - worsened again due to acute blood loss anemia. Stabilized at 1.5 now. BUN disproportionately elevated from urea. 4. UTI on antibiotics. Urine culture positive for Proteus. 5. Metabolic acidosis secondary to acute kidney injury and IV fluids. Was also on metformin. On oral bicarb. 6. Diabetes mellitus. 7. Anemia. Iron deficiency noted. s/p IV iron. Having vaginal bleeding. Hemoglobin 7.3 8. Mild volume overload. Plan: Continue off of urea as BUN had significantly increased. Continue midodrine Continue with oral sodium bicarb Add Lasix if serum sodium worsens No recent labs available today Stable for discharge from nephrology standpoint. Repeat labs as outpatient in 1 to 2 days post-discharge.
[2025-03-08 16:35] LABS: Glucose,Whole Blood 200 mg/dL (70-110)
[2025-03-08 22:10] LABS: Glucose,Whole Blood 188 mg/dL (70-110)
--- NOTE | 2025-03-08 23:09 | P.PN ---
Subjective Patient is a 55-year-old female with a past medical history of hypertension, hyperlipidemia, diabetes type 2 insulin-dependent, metastatic malignant melanoma with mets to liver and lymph nodes, depression, prior history of smoking, GERD and diabetic peripheral neuropathy and history of SVT, prior history of smoking. Patient presents to ER from Dr. Botello's office due to abnormal labs. Patient was also having generalized weakness. She was in the office for her third infusion. She had blood workup done yesterday which showed multiple abnormalities and was recommended to go to ER. She is also having generalized body pains. Also worsening shortness of breath. No chest pain. She does have decreased appetite and not eating well., No nausea no episodes of vomiting. EKG on admission showed sinus rhythm with heart rate 62 Chest x-ray showed no focal consolidation. Elevation of the right hemidiaphragm which is increased from prior exam. Consider sniff test to evaluate for diaphragmatic paralysis. Laboratory data showed WBC 26.7 hemoglobin 8.8 and platelets 634 MCV 75.3 Sodium 118, potassium 4.1 chloride 93 bicarb is 10 BUN 52 and creatinine 2.96, blood sugar 103 lactic acid 1.1 phosphorus 5.8 alk phos 241 proBNP 2350 lipase 441 Urinalysis showed light yellow turbid with large blood nitrite positive leukocyte esterase large elevated RBCs and WBCs. Influenza A B RSV and COVID-19 PCR not detected. 02/22/2025 Patient is in the MICU. Patient is requiring pressor support with Levophed. Resting in the bed. Awake alert and oriented. Currently on room air. Afebrile overnight. Denied any complaints of nausea vomiting abdominal pain or diarrhea. Lab data showed WBC trending down to 21.7 hemoglobin 8.2 and platelets 0.91 sodium improved to 121 potassium 4.5 chloride 101 bicarb is 6 BUN 54 and creatinine 2.72. Antibiotics were changed to cefazolin 2 g Q12. Nephrology and ID is on board. 02/24/2024 Patient is needing intensive care unit. Awake alert and oriented x 3. Currently on room air. Patient is off pressor support since 5 AM this morning. Sodium level improved to 127 today. Patient is on antibiotics in the form of cefepime. Urine culture showed Proteus Mirabella's. Laboratory data showed WBC 17.7 hemoglobin 7.4 and platelets 505 sodium 123 potassium 3.6 chloride 98 bicarb is 15 BUN 44 and creatinine 1.98, calcium 8.3. 02/24/2025 Patient is in MICU. Ureteric and ovarian x 3. Currently on room air. No c omplaints of chest pain or shortness of breath. Sodium level improved to 127 today. Patient is also been antibiotics for urinary tract infection with ceftriaxone. Urine culture growing Proteus mirabilis. Patient has been afebrile. Patient was given urea 15 g p.o. twice daily. Continued on insulin regimen. Laboratory test showed WBC 16.1 hemoglobin 7.3 and platelets 543 sodium 127 potassium 3.8 chloride 98 bicarb is 15 BUN 4020 creatinine 1.35 and blood sugar 82 magnesium 1.7 albumin 2.4. 02/25/2025 Patient is resting in the bed. Awake alert and oriented. No complaints of chest pain or shortness of breath. Tolerating oral diet. Patient is off IV fluids. He was started on urea and patient was also given Samsca. Sodium level is 126 today. Other laboratory data showed sodium 126 potassium 3.9 chloride 97 bicarb is 19 BUN 56 and creatinine 1.06 and blood sugar 125. Magnesium 1.9. Patient is getting ceftriaxone for urinary tract infection. 02/26 Patient lying in bed comfortable no chest pain or dyspnea No vomiting, she has average appetite No abdominal abdominal pain Patient has ongoing dysuria. 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 As per patient she was getting chemotherapy since November 2024. Her oncologist as outpatient is Dr. Botello. She had 3 cycles of chemotherapy so far. Her Cozaar Aldactone and metformin remain on hold 02/27 Clinically looks the same, awake and alert Main complaint is dysuria which is going on for 1.5 months which looks chronic related to her vaginal mass She is following up with hematology/oncology. Also she follow-up with the surgeon at [facility] with no plans for surgical intervention. Also patient confirms to me that she follow-up with [facility] in [place]. She has right foot boot on. She says she has fracture on November 26 and she is going to follow-up with her orthopedic in 1 to 2 weeks after discharge. No other new complaints Vital stable and afebrile. 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 Both of these lesions has progressed today She is developing more signs of infection with hypotension, leukocytosis went up to 19.6. Creatinine went up to 1.8, systolic blood pressure dropped from 140s down to 100 but slightly less. Patient thought secondary to have urinary tract infection and she is on ceftriaxone 2 g. Diflucan with loading dose added today. No respiratory symptoms no abdominal pain or diarrhea. No rash. No other source of infection She is also on Cardizem 120 and metoprolol 50 mg for A-fib. Also she is on Eliquis 2.5 mg. Hemoglobin dropped today to 6.6. With no evidence of bleeding. She is getting unit of blood transfusion. Posttransfusion Lasix was held because of borderline low blood pressure. After the blood pressure improved. Also she has CT of the abdomen and pelvis showing generalized lymphadenopathy and around the aorta and retrocaval as well as along the iliac chain Most likely related to her metastatic disease. There is evidence also of hepatic metastasis, hematology/oncology team on the case. Patient was informed with some of the CT findings as above 03/01 Patient is still feeling lethargic. She has large fullness with a bruise in the lower abdomen, she is morbidly obese and she has already pendulous abdomen, the area is standing in her. Possible bleeding. Hold Eliquis and check abdominal ultrasound She is s/p 1 unit of blood transfusion yesterday, hemoglobin went up 6.6 up to 7.4. She is also on ceftriaxone and Diflucan for suspected UTI She is a known case of malignant melanoma with evidence of metastasis to the abdominal lymphadenopathy and liver. Today at bedside throughout the encounter 03/02 Patient today feels better She has pain at the hematoma site in the lower abdomen Hemoglobin was 7.77.3 and rechecked it was 8.3, she is status post blood transfusion yesterday for hemoglobin dropped to 6.8 No other new signs symptoms Eliquis dose was lowered from 5 down to 2.5 mg for her history of A-fib She remains on ceftriaxone and Diflucan yesterday still has leukocytosis about 21,000 Pulmonary service signed off the case today 03/03 Patient has nausea but no vomiting, she feels dyspepsia Pain in the lower abdomen slightly better per patient long chain quiller tender and 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 She looks tired and fatigue Hemoglobin stable at 7.6, WBC down to 18,000 creatinine actually went down to 1.6 She is on ceftriaxone Diflucan, Eliquis 2.5 mg scheduled for renal dose and m etoprolol 5 mg Patient advised about fluid restriction 03/04 Patient was with several year nausea vomiting yesterday controlled with scopolamine patch and Compazine and she needed another Compazine dose this morning because of vomiting but now controlled because of this we are going to discontinue scopolamine and keep monitoring Also she is hyponatremic 123 yesterday and low urine sodium, they were trying to get her up to the commode yesterday but she was very weak and her legs gave way and she has to be lowered to the ground, blood pressure was soft 90s over 40s. However this morning there is maybe some improvement with her blood pressure in the systolic reading is more than 100. She is feeling little bit stronger. And we checked her orthostatic vitals while lying and sitting up and they were negative. We will check another urine sodium today and serum sodium. And will decide if patient will need more IV bolus or IV fluids. Her Eliquis remains on hold, her lower abdominal hematoma is improving less discoloration and less pain/tenderness discussed with staff 03/05 Patient today feels better she is up in bed and she looks better and more energetic. Patient asking when she will be discharged home Her pain and bruise on the lower abdominal are stable and improving slowly and gradually. Still has vaginal symptoms but today she has less vaginal bleeding for the first time as she explains but has not stopped completely. Blood pressure above 100 which looks stable. Sodium slightly up 123 up to 124 and creatinine 1.6. Leukocyte count is coming down to 16,000 and hemoglobin do wn to 7.4 from 7.6 She remains on ceftriaxone and Diflucan. Eliquis remains on hold. She is still giving sodium bicarb tablets per nephrology team 03/06 Patient still feels stronger, she was to go home from yesterday Patient denies any other new symptoms. She has ongoing vaginal mass related to her melanoma with evidence of metastasis intra-abdominal the and into the lymph node. She has been treated with antibiotics. She finished her course yesterday we will keep monitoring. Currently she is afebrile. She has chronic leukocytosis. Also her labs are stable low sodium 124, creatinine improved down to 1.52. Hemoglobin is stable at 7.3 Eliquis remains on hold and her intra-abdominal wall hematoma is improving. Possible resume Marilu upon discharge Sodium also stable creatinine improving, I discussed the case with Dr. Wood who cleared her for discharge today However patient was vomiting despite taking medication therefore we are going to monitor her today. Scopolamine patch and Benadryl was added Possible discharge in 24 to 48 hours if she keeps improved 03/07 Patient was doing well today Had nausea vomiting controlled with Benadryl helped as well She was cleared for discharge by all consultants. After discharge today, patient left on her way to the car she felt generally weak and she fell so she came back, Patient now requesting subacute rehab which is going to be early next week 03/08 Yesterday patient was discharged home. Originally she was evaluated by PT/OT recommended subacute rehab but patient declined Her nausea vomiting controlled and on her way out with her she could not move correctly from a standing position to this vehicle seat so she lost her balance and she has to be lowered to the ground but there is no actual fall with no head trauma or any other part per her body confirmed with her which is at bedside now She still complains from appetite is poor Patient denies vomiting as above no abdominal pain or worsening infection. She tolerates her diet little by little. Ultimately most likely patient will be discharged to rehab on Monday Objective - Vital Signs Vital signs: Vital Signs Temp 98.4 F 03/08/25 08:00 Pulse 66 03/08/25 08:00 Resp 16 03/08/25 08:00 BP 134/64 03/08/25 08:00 Pulse Ox 100 03/08/25 08:00 FiO2 Intake & Output 03/07/25 03/08/25 03/08/25 18:59 06:59 18:59 Weight 138.5 kg 138 kg Other: Voiding Method Diaper Diaper # Voids 1 1 # Bowel Movements 1 1 - Exam -GENERAL: The patient is alert and oriented x3, not in any acute distress. Well developed, well nourished. Obese HEENT: Pupils are round and equally reacting to light. EOMI. No scleral icterus. No conjunctival pallor. Normocephalic, atraumatic. No pharyngeal erythema. No thyromegaly. CARDIOVASCULAR: S1 and S2 present. No murmurs, rubs, or gallops. PULMONARY: Chest is clear to auscultation, no wheezing , no crackles. ABDOMEN: Soft, nontender, nondistended, normoactive bowel sounds. No palpable organomegaly. MUSCULOSKELETAL: No joint swelling or deformity. EXTREMITIES: No cyanosis, clubbing, or pedal edema. NEUROLOGICAL: Gross neurological examination did not reveal any focal deficits. SKIN: No rashes. no petechiae. - Labs CBC & Chem 7: 03/06/25 07:17 03/06/25 07:17 Labs: Abnormal Lab Results - Last 24 Hours (Table) 03/07/25 03/07/25 03/07/25 Range/Units 11:50 16:34 19:59 POC Glucose (mg/dL) 241 H 196 H 233 H (70-110) mg/dL 03/08/25 Range/Units 05:54 POC Glucose (mg/dL) 183 H (70-110) mg/dL Assessment and Plan Assessment: Lower abdominal hematoma suspected with severe anemia required unit of blood transfusion on 03/01 Severe hyponatremia with sodium level 118 on admission-hypoosmolar hyponatremia due to decreased oral intake and LISSETTE. Acute kidney injury. Possible ATN. SIADH cannot be excluded due to underlying malignancy. Creatinine 2.96 on admission baseline 1.0 Fall outside the hospital Non-anion gap metabolic acidosis Acute urinary tract infection with Proteus Mirabella's. Mild pancreatitis with lipase level 441 Malignant melanoma with mets to liver and lymph nodes, generalized intra- abdominal lymphadenopathy and hepatic metastasis. On chemoinfusion and is on follow-up with oncology. Diabetes type 2 insulin-dependent Diabetic peripheral neuropathy History of SVT Paroxysmal atrial fibrillation Osteoarthritis Hypertension Hyperlipidemia GERD Depression Prior history of smoking Microcytic anemia rule out iron deficiency. Hemoglobin 8.8 on admission morbid obesity Plan: Continue with the current antiemetics Hold Eliquis 2.5 mg, keep monitoring hemoglobin and the hematoma Discontinue antibiotics with ceftriaxone and Diflucan as per ID team on the returned case inspector sodium level, i but was low. Check blood pressure, urine sodium level Monitor creatinine Nephrology team consult Hematology/oncology team consult Continue holding metformin, Aldactone and Cozaar Hematology/oncology team on the case Critical care team consult sign of the case on 03/02 GI prophylaxis: Protonix DVT prophylaxis: Eliquis, currently on hold Physical therapist recommended home versus subacute rehab Prognosis is guarded
[2025-03-09 06:48] LABS: Glucose,Whole Blood 164 mg/dL (70-110)
[2025-03-09 10:48] LABS: Basophils # (A) 0.02 X 10*3/uL (0.00-0.10); Basophils % (A) 0.1 %; Eosinophils # (A) 0.66 X 10*3/uL (0.04-0.35); Eosinophils % (A) 4.4 %; HCT 23.4 % (37.2-46.3); HGB 7.3 g/dL (12.0-15.0); Lymphocytes # (A) 1.16 X 10*3/uL (0.90-5.00); Lymphocytes % (A) 7.7 %; MCH 27.4 pg (27.0-32.0); MCHC 31.2 g/dL (32.0-37.0); Mean Platelet Volume 9.9 FL (9.5-12.2); Monocytes % (A) 4.6 %; NRBC Per 100 WBC 0.03 X 10*3/uL (0.00-0.01); Neutrophils # (A) 11.93 X 10*3/uL (1.80-7.70); Neutrophils % (A) 78.8 %; Platelet Count 655 X 10*3/uL (140-440); RBC 2.66 X 10*6/uL (4.10-5.20); RDW 19.9 % (11.5-14.5); WBC 15.14 X 10*3/uL (4.50-10.00)
[2025-03-09 11:03] LABS: BUN/Creat Ratio 54.88 Ratio (12.00-20.00); Blood Urea Nitrogen 87.8 mg/dL (9.0-27.0); Calcium 8.7 mg/dL (8.7-10.3); Carbon Dioxide 20.4 mmol/L (21.6-31.8); Chloride 93 mmol/L (96-109); Glucose 160 mg/dL (70-110); Magnesium 1.6 mg/dL (1.5-2.4); Potassium 4.8 mmol/L (3.5-5.5); Sodium 125 mmol/L (135-145)
[2025-03-09 11:30] LABS: Glucose,Whole Blood 181 mg/dL (70-110)
--- NOTE | 2025-03-09 12:40 | P.PN ---
Subjective Progress Note Date: 03/09/25 Patient is seen for follow-up for acute kidney injury and hyponatremia. Renal function fairly stable with serum creatinine at 1.6. Patient is awake, comfortable, no acute distress. Examination of the heart S1 and S2 Examination of the lungs bilateral breath sounds are heard Abdomen is soft obese Examination of lower extremities shows 1+ edema Objective - Vital Signs Vital signs: Vital Signs Temp 98.7 F 03/09/25 07:29 Pulse 67 03/09/25 07:29 Resp 16 03/09/25 07:29 BP 113/72 03/09/25 07:29 Pulse Ox 100 03/09/25 07:29 FiO2 Intake & Output 03/08/25 03/09/25 03/09/25 18:59 06:59 18:59 Intake Total 240 Output Total 200 Balance -200 240 Weight 143.5 kg Intake: Oral 240 Output: Urine 200 Other: Voiding Method Diaper Bedpan # Voids 2 1 # Bowel Movements 1 - Labs CBC & Chem 7: 03/09/25 03:03 03/09/25 03:03 Labs: Abnormal Lab Results - Last 24 Hours (Table) 03/08/25 03/08/25 03/08/25 Range/Units 11:46 16:34 22:09 WBC (4.50-10.00) X 10*3/uL RBC (4.10-5.20) X 10*6/uL Hgb (12.0-15.0) g/dL Hct (37.2-46.3) % MCHC (32.0-37.0) g/dL RDW (11.5-14.5) % Plt Count (140-440) X 10*3/uL Immature Gran # (0.00-0.04) X 10*3/uL Neutrophils # (1.80-7.70) X 10*3/uL Eosinophils # (0.04-0.35) X 10*3/uL NRBC/100 WBC Diff (0.00-0.01) X 10*3/uL Sodium (135-145) mmol/L Chloride (96-109) mmol/L Carbon Dioxide (21.6-31.8) mmol/L BUN (9.0-27.0) mg/dL Creatinine (0.6-1.5) mg/dL Est GFR (CKD-EPI) (>=60) BUN/Creatinine Ratio (12.00-20.00) Ratio Glucose (70-110) mg/dL POC Glucose (mg/dL) 217 H 200 H 188 H (70-110) mg/dL 03/09/25 03/09/25 03/09/25 Range/Units 03:03 03:03 06:47 WBC 15.14 H (4.50-10.00) X 10*3/uL RBC 2.66 L (4.10-5.20) X 10*6/uL Hgb 7.3 L (12.0-15.0) g/dL Hct 23.4 L (37.2-46.3) % MCHC 31.2 L (32.0-37.0) g/dL RDW 19.9 H (11.5-14.5) % Plt Count 655 H (140-440) X 10*3/uL Immature Gran # 0.67 H (0.00-0.04) X 10*3/uL Neutrophils # 11.93 H (1.80-7.70) X 10*3/uL Eosinophils # 0.66 H (0.04-0.35) X 10*3/uL NRBC/100 WBC Diff 0.03 H (0.00-0.01) X 10*3/uL Sodium 125 L (135-145) mmol/L Chloride 93 L (96-109) mmol/L Carbon Dioxide 20.4 L (21.6-31.8) mmol/L BUN 87.8 H (9.0-27.0) mg/dL Creatinine 1.6 H (0.6-1.5) mg/dL Est GFR (CKD-EPI) 37 L (>=60) BUN/Creatinine Ratio 54.88 H (12.00-20.00) Ratio Glucose 160 H (70-110) mg/dL POC Glucose (mg/dL) 164 H (70-110) mg/dL 03/09/25 Range/Units 11:28 WBC (4.50-10.00) X 10*3/uL RBC (4.10-5.20) X 10*6/uL Hgb (12.0-15.0) g/dL Hct (37.2-46.3) % MCHC (32.0-37.0) g/dL RDW (11.5-14.5) % Plt Count (140-440) X 10*3/uL Immature Gran # (0.00-0.04) X 10*3/uL Neutrophils # (1.80-7.70) X 10*3/uL Eosinophils # (0.04-0.35) X 10*3/uL NRBC/100 WBC Diff (0.00-0.01) X 10*3/uL Sodium (135-145) mmol/L Chloride (96-109) mmol/L Carbon Dioxide (21.6-31.8) mmol/L BUN (9.0-27.0) mg/dL Creatinine (0.6-1.5) mg/dL Est GFR (CKD-EPI) (>=60) BUN/Creatinine Ratio (12.00-20.00) Ratio Glucose (70-110) mg/dL POC Glucose (mg/dL) 181 H (70-110) mg/dL Assessment and Plan Assessment: 1. 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 Urine osmolality 252. Sodium 125 today. Status post sodium chloride tab, held now due to edema. Cortisol level not low. TSH normal. Urine osmolality 252. Status post Samsca on 02/25/2025 2. Malignant melanoma with metastatic disease to liver and lymph nodes. 3. Acute kidney injury secondary to ATN secondary to severe sepsis. Baseline creatinine near 1 from December 2024. Creatinine 2.96 on admission and improved to 1.06 - worsened again due to acute blood loss anemia. Stabilized at 1.6 now. BUN disproportionately elevated from urea. 4. UTI on antibiotics. Urine culture positive for Proteus. 5. Metabolic acidosis secondary to acute kidney injury and IV fluids. Was also on metformin. On oral bicarb. 6. Diabetes mellitus. 7. Anemia. Iron deficiency noted. s/p IV iron. Having vaginal bleeding. Hemoglobin 7.3 8. Mild volume overload. Plan: Continue off of urea as BUN had significantly increased. Continue midodrine Continue with oral sodium bicarb Add Lasix if serum sodium worsens Stable for discharge from nephrology standpoint. Repeat labs as outpatient in 1 to 2 days post-discharge.
--- NOTE | 2025-03-09 17:06 | P.PN ---
Subjective Progress Note Date: 03/08/25 Principal diagnosis: Reason for follow-up is sepsis and UTI Patient is a 55-year-old female with a past medical history significant for stage IV malignant melanoma on chemo, Diabetes Mellitus, GERD/Reflux, Hyperlipidemia, Hypertension, Osteoarthritis (OA) presenting to the hospital for evaluation of generalized weakness did have urinary symptoms a positive UA concerning for symptomatic UTI with sepsis requiring admission by ICU. On today's evaluation that is 03/08/2025, patient has been afebrile, patient is breathing comfortably and is currently on room air, patient denies having any chest pain and cough, patient did have improvement in nausea no further vomiting abdominal pain has decreased and no diarrhea. No lab draw today Objective - Vital Signs Vital signs: Vital Signs Temp 98.4 F 03/08/25 08:00 Pulse 66 03/08/25 12:00 Resp 16 03/08/25 12:00 BP 108/74 03/08/25 12:00 Pulse Ox 99 03/08/25 12:00 FiO2 Intake & Output 03/07/25 03/08/25 03/08/25 18:59 06:59 18:59 Output Total 200 Balance -200 Weight 138.5 kg 138 kg Output: Urine 200 Other: Voiding Method Diaper Diaper Diaper # Voids 1 1 1 # Bowel Movements 1 1 1 - Exam GENERAL DESCRIPTION: A middle-age female lying in bed in no distress RESPIRATORY SYSTEM: Unlabored breathing , decreased breath sounds at bases HEART: S1 S2 regular rate and rhythm , ABDOMEN: Soft , lower abdominal wall bruising hematoma EXTREMITIES: No edema feet - Labs CBC & Chem 7: 03/09/25 03:03 03/09/25 03:03 Labs: Abnormal Lab Results - Last 24 Hours (Table) 03/07/25 03/07/25 03/08/25 Range/Units 16:34 19:59 05:54 POC Glucose (mg/dL) 196 H 233 H 183 H (70-110) mg/dL 03/08/25 Range/Units 11:46 POC Glucose (mg/dL) 217 H (70-110) mg/dL Assessment and Plan (1) Sepsis Current Visit: Yes Status: Acute Code(s): A41.9 - SEPSIS, UNSPECIFIED ORGANISM SNOMED Code(s): 34159766 (2) LISSTETE (acute kidney injury) Current Visit: Yes Status: Acute Code(s): N17.9 - ACUTE KIDNEY FAILURE, UNSPECIFIED SNOMED Code(s): 05993053 (3) UTI (urinary tract infection) Current Visit: Yes Status: Acute Code(s): N39.0 - URINARY TRACT INFECTION, SITE NOT SPECIFIED SNOMED Code(s): 43396364 (4) Leukocytosis Current Visit: Yes Status: Acute Code(s): D72.829 - ELEVATED WHITE BLOOD CELL COUNT, UNSPECIFIED SNOMED Code(s): 682543235 Plan: 1patient presented hospital with sepsis in this patient who did have tachycardia hypotension elevated white count meeting criteria for SIRS/sepsis source likely urinary in this patient has significantly positive UA along with urinary symptoms likely from enteric gram-negative pathogen keeping in mind history of cancer on chemo will need to cover for resistant gram-negative pathogen 2-patient did have a CT of abdominal pelvis mention worsening lymphadenopathy and concern for hepatic metastasis right lower abdominal wall hematoma, 3the patient is afebrile and has received adequate antibiotic therapy we will repeat his CBC with a.m. to make sure white count is trending down Dictation was produced using [employer] dictation software. please excuse any grammatical, word or spelling errors. Time with Patient: Less than 30
--- NOTE | 2025-03-09 17:07 | P.PN ---
Subjective Progress Note Date: 03/09/25 Principal diagnosis: Reason for follow-up is sepsis and UTI Patient is a 55-year-old female with a past medical history significant for stage IV malignant melanoma on chemo, Diabetes Mellitus, GERD/Reflux, Hyperlipidemia, Hypertension, Osteoarthritis (OA) presenting to the hospital for evaluation of generalized weakness did have urinary symptoms a positive UA concerning for symptomatic UTI with sepsis requiring admission by ICU. On today's evaluation that is 03/09/2025, Patient is afebrile this morning patient denies having any chest pain shortness of breath or cough, the patient is currently on room air, patient lower abdominal has decrease in intensity no further vomiting submitted feeling weak. Patient white count is down to 15.14 creatinine is 1.6 Objective - Vital Signs Vital signs: Vital Signs Temp 98.2 F 03/09/25 14:15 Pulse 74 03/09/25 14:15 Resp 18 03/09/25 14:15 BP 116/79 03/09/25 14:15 Pulse Ox 100 03/09/25 14:15 FiO2 Intake & Output 03/08/25 03/09/25 03/09/25 18:59 06:59 18:59 Intake Total 240 Output Total 200 Balance -200 240 Weight 143.5 kg Intake: Oral 240 Output: Urine 200 Other: Voiding Method Diaper Bedpan # Voids 2 1 1 # Bowel Movements 1 1 - Exam GENERAL DESCRIPTION: A middle-age female lying in bed in no distress RESPIRATORY SYSTEM: Unlabored breathing , decreased breath sounds at bases HEART: S1 S2 regular rate and rhythm , ABDOMEN: Soft , no tenderness EXTREMITIES: No edema feet - Labs CBC & Chem 7: 03/09/25 03:03 03/09/25 03:03 Labs: Abnormal Lab Results - Last 24 Hours (Table) 03/08/25 03/09/25 03/09/25 Range/Units 22:09 03:03 03:03 WBC 15.14 H (4.50-10.00) X 10*3/uL RBC 2.66 L (4.10-5.20) X 10*6/uL Hgb 7.3 L (12.0-15.0) g/dL Hct 23.4 L (37.2-46.3) % MCHC 31.2 L (32.0-37.0) g/dL RDW 19.9 H (11.5-14.5) % Plt Count 655 H (140-440) X 10*3/uL Immature Gran # 0.67 H (0.00-0.04) X 10*3/uL Neutrophils # 11.93 H (1.80-7.70) X 10*3/uL Eosinophils # 0.66 H (0.04-0.35) X 10*3/uL NRBC/100 WBC Diff 0.03 H (0.00-0.01) X 10*3/uL Sodium 125 L (135-145) mmol/L Chloride 93 L (96-109) mmol/L Carbon Dioxide 20.4 L (21.6-31.8) mmol/L BUN 87.8 H (9.0-27.0) mg/dL Creatinine 1.6 H (0.6-1.5) mg/dL Est GFR (CKD-EPI) 37 L (>=60) BUN/Creatinine Ratio 54.88 H (12.00-20.00) Ratio Glucose 160 H (70-110) mg/dL POC Glucose (mg/dL) 188 H (70-110) mg/dL 03/09/25 03/09/25 Range/Units 06:47 11:28 WBC (4.50-10.00) X 10*3/uL RBC (4.10-5.20) X 10*6/uL Hgb (12.0-15.0) g/dL Hct (37.2-46.3) % MCHC (32.0-37.0) g/dL RDW (11.5-14.5) % Plt Count (140-440) X 10*3/uL Immature Gran # (0.00-0.04) X 10*3/uL Neutrophils # (1.80-7.70) X 10*3/uL Eosinophils # (0.04-0.35) X 10*3/uL NRBC/100 WBC Diff (0.00-0.01) X 10*3/uL Sodium (135-145) mmol/L Chloride (96-109) mmol/L Carbon Dioxide (21.6-31.8) mmol/L BUN (9.0-27.0) mg/dL Creatinine (0.6-1.5) mg/dL Est GFR (CKD-EPI) (>=60) BUN/Creatinine Ratio (12.00-20.00) Ratio Glucose (70-110) mg/dL POC Glucose (mg/dL) 164 H 181 H (70-110) mg/dL Assessment and Plan (1) Sepsis Current Visit: Yes Status: Acute Code(s): A41.9 - SEPSIS, UNSPECIFIED ORGANISM SNOMED Code(s): 28767046 (2) LISSETTE (acute kidney injury) Current Visit: Yes Status: Acute Code(s): N17.9 - ACUTE KIDNEY FAILURE, UNSPECIFIED SNOMED Code(s): 51089278 (3) UTI (urinary tract infection) Current Visit: Yes Status: Acute Code(s): N39.0 - URINARY TRACT INFECTION, SITE NOT SPECIFIED SNOMED Code(s): 01082773 (4) Leukocytosis Current Visit: Yes Status: Acute Code(s): D72.829 - ELEVATED WHITE BLOOD CELL COUNT, UNSPECIFIED SNOMED Code(s): 231553353 Plan: 1patient presented hospital with sepsis in this patient who did have tachycardia hypotension elevated white count meeting criteria for SIRS/sepsis source likely urinary in this patient has significantly positive UA along with urinary symptoms likely from enteric gram-negative pathogen keeping in mind history of cancer on chemo will need to cover for resistant gram-negative pathogen 2-patient did have a CT of abdominal pelvis mention worsening lymphadenopathy and concern for hepatic metastasis right lower abdominal wall hematoma, 3the patient is afebrile and white count is trending down off antibiotic therapy more likely elevated white count not related to any infectious etiology and will monitor closely of antibiotic therapy Dictation was produced using [employer] dictation software. please excuse any grammatical, word or spelling errors. Time with Patient: Less than 30
[2025-03-09 17:31] LABS: Glucose,Whole Blood 263 mg/dL (70-110)
[2025-03-09 19:53] LABS: Glucose,Whole Blood 188 mg/dL (70-110)
[2025-03-09] MEDS: ACETAMINOPHEN TAB 325 MG TAB PO PRN (20:35)
[2025-03-09] MEDS ORDERED: APIXABAN 5 MG TAB PO SCH (23:15)
--- NOTE | 2025-03-09 23:15 | P.PN ---
Subjective Patient is a 55-year-old female with a past medical history of hypertension, hyperlipidemia, diabetes type 2 insulin-dependent, metastatic malignant melanoma with mets to liver and lymph nodes, depression, prior history of smoking, GERD and diabetic peripheral neuropathy and history of SVT, prior history of smoking. Patient presents to ER from Dr. Botello's office due to abnormal labs. Patient was also having generalized weakness. She was in the office for her third infusion. She had blood workup done yesterday which showed multiple abnormalities and was recommended to go to ER. She is also having generalized body pains. Also worsening shortness of breath. No chest pain. She does have decreased appetite and not eating well., No nausea no episodes of vomiting. EKG on admission showed sinus rhythm with heart rate 62 Chest x-ray showed no focal consolidation. Elevation of the right hemidiaphragm which is increased from prior exam. Consider sniff test to evaluate for diaphragmatic paralysis. Laboratory data showed WBC 26.7 hemoglobin 8.8 and platelets 634 MCV 75.3 Sodium 118, potassium 4.1 chloride 93 bicarb is 10 BUN 52 and creatinine 2.96, blood sugar 103 lactic acid 1.1 phosphorus 5.8 alk phos 241 proBNP 2350 lipase 441 Urinalysis showed light yellow turbid with large blood nitrite positive leukocyte esterase large elevated RBCs and WBCs. Influenza A B RSV and COVID-19 PCR not detected. 02/22/2025 Patient is in the MICU. Patient is requiring pressor support with Levophed. Resting in the bed. Awake alert and oriented. Currently on room air. Afebrile overnight. Denied any complaints of nausea vomiting abdominal pain or diarrhea. Lab data showed WBC trending down to 21.7 hemoglobin 8.2 and platelets 0.91 sodium improved to 121 potassium 4.5 chloride 101 bicarb is 6 BUN 54 and creatinine 2.72. Antibiotics were changed to cefazolin 2 g Q12. Nephrology and ID is on board. 02/24/2024 Patient is needing intensive care unit. Awake alert and oriented x 3. Currently on room air. Patient is off pressor support since 5 AM this morning. Sodium level improved to 127 today. Patient is on antibiotics in the form of cefepime. Urine culture showed Proteus Mirabella's. Laboratory data showed WBC 17.7 hemoglobin 7.4 and platelets 505 sodium 123 potassium 3.6 chloride 98 bicarb is 15 BUN 44 and creatinine 1.98, calcium 8.3. 02/24/2025 Patient is in MICU. Ureteric and ovarian x 3. Currently on room air. No c omplaints of chest pain or shortness of breath. Sodium level improved to 127 today. Patient is also been antibiotics for urinary tract infection with ceftriaxone. Urine culture growing Proteus mirabilis. Patient has been afebrile. Patient was given urea 15 g p.o. twice daily. Continued on insulin regimen. Laboratory test showed WBC 16.1 hemoglobin 7.3 and platelets 543 sodium 127 potassium 3.8 chloride 98 bicarb is 15 BUN 4020 creatinine 1.35 and blood sugar 82 magnesium 1.7 albumin 2.4. 02/25/2025 Patient is resting in the bed. Awake alert and oriented. No complaints of chest pain or shortness of breath. Tolerating oral diet. Patient is off IV fluids. He was started on urea and patient was also given Samsca. Sodium level is 126 today. Other laboratory data showed sodium 126 potassium 3.9 chloride 97 bicarb is 19 BUN 56 and creatinine 1.06 and blood sugar 125. Magnesium 1.9. Patient is getting ceftriaxone for urinary tract infection. 02/26 Patient lying in bed comfortable no chest pain or dyspnea No vomiting, she has average appetite No abdominal abdominal pain Patient has ongoing dysuria. 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 As per patient she was getting chemotherapy since November 2024. Her oncologist as outpatient is Dr. Botello. She had 3 cycles of chemotherapy so far. Her Cozaar Aldactone and metformin remain on hold 02/27 Clinically looks the same, awake and alert Main complaint is dysuria which is going on for 1.5 months which looks chronic related to her vaginal mass She is following up with hematology/oncology. Also she follow-up with the surgeon at [facility] with no plans for surgical intervention. Also patient confirms to me that she follow-up with ice rink attendant in [place]. She has right foot boot on. She says she has fracture on November 26 and she is going to follow-up with her orthopedic in 1 to 2 weeks after discharge. No other new complaints Vital stable and afebrile. 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 Both of these lesions has progressed today She is developing more signs of infection with hypotension, leukocytosis went up to 19.6. Creatinine went up to 1.8, systolic blood pressure dropped from 140s down to 100 but slightly less. Patient thought secondary to have urinary tract infection and she is on ceftriaxone 2 g. Diflucan with loading dose added today. No respiratory symptoms no abdominal pain or diarrhea. No rash. No other source of infection She is also on Cardizem 120 and metoprolol 50 mg for A-fib. Also she is on Eliquis 2.5 mg. Hemoglobin dropped today to 6.6. With no evidence of bleeding. She is getting unit of blood transfusion. Posttransfusion Lasix was held because of borderline low blood pressure. After the blood pressure improved. Also she has CT of the abdomen and pelvis showing generalized lymphadenopathy and around the aorta and retrocaval as well as along the iliac chain Most likely related to her metastatic disease. There is evidence also of hepatic metastasis, hematology/oncology team on the case. Patient was informed with some of the CT findings as above 03/01 Patient is still feeling lethargic. She has large fullness with a bruise in the lower abdomen, she is morbidly obese and she has already pendulous abdomen, the area is standing in her. Possible bleeding. Hold Eliquis and check abdominal ultrasound She is s/p 1 unit of blood transfusion yesterday, hemoglobin went up 6.6 up to 7.4. She is also on ceftriaxone and Diflucan for suspected UTI She is a known case of malignant melanoma with evidence of metastasis to the abdominal lymphadenopathy and liver. Today at bedside throughout the encounter 03/02 Patient today feels better She has pain at the hematoma site in the lower abdomen Hemoglobin was 7.77.3 and rechecked it was 8.3, she is status post blood transfusion yesterday for hemoglobin dropped to 6.8 No other new signs symptoms Eliquis dose was lowered from 5 down to 2.5 mg for her history of A-fib She remains on ceftriaxone and Diflucan yesterday still has leukocytosis about 21,000 Pulmonary service signed off the case today 03/03 Patient has nausea but no vomiting, she feels dyspepsia Pain in the lower abdomen slightly better per patient still operator and 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 She looks tired and fatigue Hemoglobin stable at 7.6, WBC down to 18,000 creatinine actually went down to 1.6 She is on ceftriaxone Diflucan, Eliquis 2.5 mg scheduled for renal dose and m etoprolol 5 mg Patient advised about fluid restriction 03/04 Patient was with several year nausea vomiting yesterday controlled with scopolamine patch and Compazine and she needed another Compazine dose this morning because of vomiting but now controlled because of this we are going to discontinue scopolamine and keep monitoring Also she is hyponatremic 123 yesterday and low urine sodium, they were trying to get her up to the commode yesterday but she was very weak and her legs gave way and she has to be lowered to the ground, blood pressure was soft 90s over 40s. However this morning there is maybe some improvement with her blood pressure in the systolic reading is more than 100. She is feeling little bit stronger. And we checked her orthostatic vitals while lying and sitting up and they were negative. We will check another urine sodium today and serum sodium. And will decide if patient will need more IV bolus or IV fluids. Her Eliquis remains on hold, her lower abdominal hematoma is improving less discoloration and less pain/tenderness discussed with staff 03/05 Patient today feels better she is up in bed and she looks better and more energetic. Patient asking when she will be discharged home Her pain and bruise on the lower abdominal are stable and improving slowly and gradually. Still has vaginal symptoms but today she has less vaginal bleeding for the first time as she explains but has not stopped completely. Blood pressure above 100 which looks stable. Sodium slightly up 123 up to 124 and creatinine 1.6. Leukocyte count is coming down to 16,000 and hemoglobin do wn to 7.4 from 7.6 She remains on ceftriaxone and Diflucan. Eliquis remains on hold. She is still giving sodium bicarb tablets per nephrology team 03/06 Patient still feels stronger, she was to go home from yesterday Patient denies any other new symptoms. She has ongoing vaginal mass related to her melanoma with evidence of metastasis intra-abdominal the and into the lymph node. She has been treated with antibiotics. She finished her course yesterday we will keep monitoring. Currently she is afebrile. She has chronic leukocytosis. Also her labs are stable low sodium 124, creatinine improved down to 1.52. Hemoglobin is stable at 7.3 Eliquis remains on hold and her intra-abdominal wall hematoma is improving. Possible resume Eliquis upon discharge Sodium also stable creatinine improving, I discussed the case with Dr. Wood who cleared her for discharge today However patient was vomiting despite taking medication therefore we are going to monitor her today. Scopolamine patch and Benadryl was added Possible discharge in 24 to 48 hours if she keeps improved 03/07 Patient was doing well today Had nausea vomiting controlled with Benadryl helped as well She was cleared for discharge by all consultants. After discharge today, patient left on her way to the car she felt generally weak and she fell so she came back, Patient now requesting subacute rehab which is going to be early next week 03/08 Yesterday patient was discharged home. Originally she was evaluated by PT/OT recommended subacute rehab but patient declined Her nausea vomiting controlled and on her way out with her she could not move correctly from a standing position to this vehicle seat so she lost her balance and she has to be lowered to the ground but there is no actual fall with no head trauma or any other part per her body confirmed with her which is at bedside now She still complains from appetite is poor Patient denies vomiting as above no abdominal pain or worsening infection. She tolerates her diet little by little. Ultimately most likely patient will be discharged to rehab on Friday 03/09 Patient came back to the hospital after she discharge and fell on her way leaving the hospital Now she is pending placement to rehab She denies any other new complaint Eliquis was held about a week ago after she developed lower abdominal hematoma. Currently stable recommend to resume her Eliquis starting tomorrow Objective - Vital Signs Vital signs: Vital Signs Temp 100.6 F H 03/09/25 20:30 Pulse 83 03/09/25 20:30 Resp 16 03/09/25 20:30 BP 105/69 03/09/25 20:30 Pulse Ox 95 03/09/25 20:30 FiO2 Intake & Output 03/09/25 03/09/25 03/10/25 06:59 18:59 06:59 Intake Total 240 Balance 240 Weight 143.5 kg Intake: Oral 240 Other: Voiding Method Bedpan Bedpan # Voids 1 4 # Bowel Movements 1 - Exam -GENERAL: The patient is alert and oriented x3, not in any acute distress. Well developed, well nourished. Obese HEENT: Pupils are round and equally reacting to light. EOMI. No scleral icterus. No conjunctival pallor. Normocephalic, atraumatic. No pharyngeal erythema. No thyromegaly. CARDIOVASCULAR: S1 and S2 present. No murmurs, rubs, or gallops. PULMONARY: Chest is clear to auscultation, no wheezing , no crackles. ABDOMEN: Soft, nontender, nondistended, normoactive bowel sounds. No palpable organomegaly. MUSCULOSKELETAL: No joint swelling or deformity. EXTREMITIES: No cyanosis, clubbing, or pedal edema. NEUROLOGICAL: Gross neurological examination did not reveal any focal deficits. SKIN: No rashes. no petechiae. - Labs CBC & Chem 7: 03/09/25 03:03 03/09/25 03:03 Labs: Abnormal Lab Results - Last 24 Hours (Table) 03/09/25 03/09/25 03/09/25 Range/Units 03:03 03:03 06:47 WBC 15.14 H (4.50-10.00) X 10*3/uL RBC 2.66 L (4.10-5.20) X 10*6/uL Hgb 7.3 L (12.0-15.0) g/dL Hct 23.4 L (37.2-46.3) % MCHC 31.2 L (32.0-37.0) g/dL RDW 19.9 H (11.5-14.5) % Plt Count 655 H (140-440) X 10*3/uL Immature Gran # 0.67 H (0.00-0.04) X 10*3/uL Neutrophils # 11.93 H (1.80-7.70) X 10*3/uL Eosinophils # 0.66 H (0.04-0.35) X 10*3/uL NRBC/100 WBC Diff 0.03 H (0.00-0.01) X 10*3/uL Sodium 125 L (135-145) mmol/L Chloride 93 L (96-109) mmol/L Carbon Dioxide 20.4 L (21.6-31.8) mmol/L BUN 87.8 H (9.0-27.0) mg/dL Creatinine 1.6 H (0.6-1.5) mg/dL Est GFR (CKD-EPI) 37 L (>=60) BUN/Creatinine Ratio 54.88 H (12.00-20.00) Ratio Glucose 160 H (70-110) mg/dL POC Glucose (mg/dL) 164 H (70-110) mg/dL 03/09/25 03/09/25 03/09/25 Range/Units 11:28 17:27 19:52 WBC (4.50-10.00) X 10*3/uL RBC (4.10-5.20) X 10*6/uL Hgb (12.0-15.0) g/dL Hct (37.2-46.3) % MCHC (32.0-37.0) g/dL RDW (11.5-14.5) % Plt Count (140-440) X 10*3/uL Immature Gran # (0.00-0.04) X 10*3/uL Neutrophils # (1.80-7.70) X 10*3/uL Eosinophils # (0.04-0.35) X 10*3/uL NRBC/100 WBC Diff (0.00-0.01) X 10*3/uL Sodium (135-145) mmol/L Chloride (96-109) mmol/L Carbon Dioxide (21.6-31.8) mmol/L BUN (9.0-27.0) mg/dL Creatinine (0.6-1.5) mg/dL Est GFR (CKD-EPI) (>=60) BUN/Creatinine Ratio (12.00-20.00) Ratio Glucose (70-110) mg/dL POC Glucose (mg/dL) 181 H 263 H 188 H (70-110) mg/dL Assessment and Plan Assessment: Lower abdominal hematoma suspected with severe anemia required unit of blood transfusion on 03/01 Severe hyponatremia with sodium level 118 on admission-hypoosmolar hyponatremia due to decreased oral intake and LISSETTE. Acute kidney injury. Possible ATN. SIADH cannot be excluded due to underlying malignancy. Creatinine 2.96 on admission baseline 1.0 Fall outside the hospital Non-anion gap metabolic acidosis Acute urinary tract infection with Proteus Mirabella's. Mild pancreatitis with lipase level 441 Malignant melanoma with mets to liver and lymph nodes, generalized intra- abdominal lymphadenopathy and hepatic metastasis. On chemoinfusion and is on follow-up with oncology. Diabetes type 2 insulin-dependent Diabetic peripheral neuropathy History of SVT Paroxysmal atrial fibrillation Osteoarthritis Hypertension Hyperlipidemia GERD Depression Prior history of smoking Microcytic anemia rule out iron deficiency. Hemoglobin 8.8 on admission morbid obesity Plan: Continue with the current antiemetics Hold Eliquis 2.5 mg, keep monitoring hemoglobin and the hematoma Discontinue antibiotics with ceftriaxone and Diflucan as per ID team on the case folder sodium level, i but was low. Check blood pressure, urine sodium level Monitor creatinine Nephrology team consult Hematology/oncology team consult Continue holding metformin, Aldactone and Cozaar Hematology/oncology team on the case Critical care team consult sign of the case on 03/02 GI prophylaxis: Protonix DVT prophylaxis: Eliquis, currently on hold Physical therapist recommended home versus subacute rehab Prognosis is guarded
[2025-03-10 06:09] LABS: Glucose,Whole Blood 154 mg/dL (70-110)
--- NOTE | 2025-03-10 10:55 | P.PN ---
Subjective Patient is seen in follow-up for acute kidney injury and hyponatremia. Sodium level 125 and creatinine 1.6 yesterday. Complaining of dry heaves. Vital signs are stable. General: No acute distress. HEENT: Head exam is unremarkable. LUNGS: No audible rhonchi or wheezes. HEART: Rate and Rhythm are regular. ABDOMEN: Nontender. EXTREMITITES: No edema. Objective - Vital Signs Vital signs: Vital Signs Temp 97.8 F 03/10/25 07:42 Pulse 78 03/10/25 07:42 Resp 17 03/10/25 07:42 BP 100/64 03/10/25 07:42 Pulse Ox 97 03/10/25 07:42 FiO2 Intake & Output 03/09/25 03/10/25 03/10/25 18:59 06:59 18:59 Weight 143.6 kg Other: Voiding Method Bedpan Bedpan External Catheter # Voids 4 2 # Bowel Movements 1 - Labs CBC & Chem 7: 03/09/25 03:03 03/09/25 03:03 Labs: Abnormal Lab Results - Last 24 Hours (Table) 03/09/25 03/09/25 03/09/25 Range/Units 03:03 03:03 11:28 WBC 15.14 H (4.50-10.00) X 10*3/uL RBC 2.66 L (4.10-5.20) X 10*6/uL Hgb 7.3 L (12.0-15.0) g/dL Hct 23.4 L (37.2-46.3) % MCHC 31.2 L (32.0-37.0) g/dL RDW 19.9 H (11.5-14.5) % Plt Count 655 H (140-440) X 10*3/uL Immature Gran # 0.67 H (0.00-0.04) X 10*3/uL Neutrophils # 11.93 H (1.80-7.70) X 10*3/uL Eosinophils # 0.66 H (0.04-0.35) X 10*3/uL NRBC/100 WBC Diff 0.03 H (0.00-0.01) X 10*3/uL Sodium 125 L (135-145) mmol/L Chloride 93 L (96-109) mmol/L Carbon Dioxide 20.4 L (21.6-31.8) mmol/L BUN 87.8 H (9.0-27.0) mg/dL Creatinine 1.6 H (0.6-1.5) mg/dL Est GFR (CKD-EPI) 37 L (>=60) BUN/Creatinine Ratio 54.88 H (12.00-20.00) Ratio Glucose 160 H (70-110) mg/dL POC Glucose (mg/dL) 181 H (70-110) mg/dL 03/09/25 03/09/25 03/10/25 Range/Units 17:27 19:52 06:08 WBC (4.50-10.00) X 10*3/uL RBC (4.10-5.20) X 10*6/uL Hgb (12.0-15.0) g/dL Hct (37.2-46.3) % MCHC (32.0-37.0) g/dL RDW (11.5-14.5) % Plt Count (140-440) X 10*3/uL Immature Gran # (0.00-0.04) X 10*3/uL Neutrophils # (1.80-7.70) X 10*3/uL Eosinophils # (0.04-0.35) X 10*3/uL NRBC/100 WBC Diff (0.00-0.01) X 10*3/uL Sodium (135-145) mmol/L Chloride (96-109) mmol/L Carbon Dioxide (21.6-31.8) mmol/L BUN (9.0-27.0) mg/dL Creatinine (0.6-1.5) mg/dL Est GFR (CKD-EPI) (>=60) BUN/Creatinine Ratio (12.00-20.00) Ratio Glucose (70-110) mg/dL POC Glucose (mg/dL) 263 H 188 H 154 H (70-110) mg/dL Assessment and Plan Plan: Assessment: 1. 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 Urine osmolality 252. Sodium 125 yesterday. Cortisol level high. TSH normal. Urine osmolality 252. 2. Malignant melanoma with metastatic disease to liver and lymph nodes. 3. Acute kidney injury secondary to ATN secondary to severe sepsis. Baseline creatinine near 1 from December 2024. Creatinine 2.96 on admission and improved to 1.06 - now worsening again due to acute blood loss anemia. 4. UTI on antibiotics. Urine culture positive for Proteus. 5. Metabolic acidosis secondary to acute kidney injury and IV fluids. Was also on metformin. On oral bicarb. 6. Diabetes mellitus. 7. Anemia secondary to acute blood loss. Iron deficiency noted. s/p IV iron and blood transfusion this admission. Plan: Encourage oral intake. Add gentle IV hydration. Maintain fluid restriction. Check labs in the morning. Zofran as needed. Add oral magnesium oxide
[2025-03-10] MEDS: SODIUM CHLORIDE 0.9% 1,000 ML IV SCH (11:31)
[2025-03-10 11:48] LABS: Glucose,Whole Blood 175 mg/dL (70-110)
[2025-03-10] MEDS: MAGNESIUM OXIDE 400 MG TAB PO SCH (11:54)
[2025-03-10] MEDS: MAGNESIUM SULFATE-D5W PMX 1 GM in DEXTROSE/WATER 1 100ML.BAG IVPB SCH (12:16)
[2025-03-10 16:50] LABS: Glucose,Whole Blood 163 mg/dL (70-110)
--- NOTE | 2025-03-10 20:29 | P.PN ---
Subjective Progress Note Date: 03/10/25 Principal diagnosis: UTI, LISSETTE. Metastatic melanoma This a.m. patient is reporting expectoration of thick, clear mucus, hard to clear at times. She is also having episodes of vomiting, mostly clear fluids. Also reporting nausea, visualized the patient having dry heaves. She denies any neurological c/o, vision changes. Objective - Vital Signs Vital signs: Vital Signs Temp 98.4 F 03/10/25 15:14 Pulse 80 03/10/25 15:14 Resp 17 03/10/25 15:14 BP 102/55 03/10/25 15:14 Pulse Ox 97 03/10/25 15:14 FiO2 Intake & Output 03/09/25 03/10/25 03/10/25 18:59 06:59 18:59 Weight 143.6 kg Other: Voiding Method Bedpan Bedpan External Catheter # Voids 4 2 # Bowel Movements 1 - Constitutional General appearance: Present: cooperative, morbidly obese, no acute distress - EENT Eyes: Present: anicteric sclerae, EOMI ENT: Present: hearing grossly normal - Respiratory Details: resp even and unlabored - Cardiovascular Rhythm: regular - Peripheral edema leg Peripheral Edema: bilateral: 2+, Pitting - Integumentary Integumentary Comment(s): large melanoma mass rt inguinal area/suprapubic area - Neurologic Neurologic: Present: CNII-XII intact - Musculoskeletal Musculoskeletal: Present: generalized weakness - Psychiatric Psychiatric: Present: A&O x's 3, appropriate affect, intact judgment & insight - Labs CBC & Chem 7: 03/09/25 03:03 03/09/25 03:03 Labs: Abnormal Lab Results - Last 24 Hours (Table) 03/09/25 03/09/25 03/10/25 Range/Units 17:27 19:52 06:08 POC Glucose (mg/dL) 263 H 188 H 154 H (70-110) mg/dL 03/10/25 Range/Units 11:46 POC Glucose (mg/dL) 175 H (70-110) mg/dL Assessment and Plan (1) LISSETTE (acute kidney injury) Current Visit: Yes Status: Acute Code(s): N17.9 - ACUTE KIDNEY FAILURE, UNSPECIFIED SNOMED Code(s): 06004121 (2) Hematoma Current Visit: Yes Status: Acute Code(s): T14.8XXA - OTHER INJURY OF UNSPECIFIED BODY REGION, INITIAL ENCOUNTER SNOMED Code(s): 966920405 (3) Melanoma Current Visit: Yes Status: Acute Priority: High Code(s): C43.9 - MALIGNANT MELANOMA OF SKIN, UNSPECIFIED SNOMED Code(s): 813937758 (4) Dysfunctional uterine bleeding Current Visit: No Status: Acute Code(s): N93.8 - OTHER SPECIFIED ABNORMAL UTERINE AND VAGINAL BLEEDING SNOMED Code(s): 99091673669340 Plan: Septic shock secondary to UTI -Improved with treatment of the same -ID following -Repeat urine and blood cultures due to leukocytosis on 02/27/2025 were negative -Leukocytosis is persistent but, improved. Will continue to monitor Hyponatremia -Nephrology following. -Sodium stable on most recent labs at 125. BUN and creatinine continue to improve as well Hematoma -CT AP/ reporting massive lymphadenopathy in the inguinal lymph nodes. Subcutaneous increased density present at the level of the iliac wings both medially and laterally. Nonspecific, possibly edema or contusions -Ultrasound 03/01/2025 showing fluid collection 5.3 x 5.1 x 1.3 cm. [place] to be a hematoma. -Hemoglobin has remained stable, in the 7 range since transfusions on 02/28 and 03/01 for hemoglobin in the 6 range. -Eliquis was resumed today by internal medicine -Continue to monitor CBC N/V -Persistent despite multiple medications - Adjustments were made to multiple antiemetic medications. Will see how patient is in the AM. If she is having persistent symptoms we will order MRI of the brain to rule out brain metastases. Metastatic melanoma - Received 3 cycles of Opdualag, last dose on 02/17/2025 - CT AP reported known metastases to the liver and abdominal/iliac lymphad enopathy. This scan was also compared to scans obtained in November 2023. She had a PET CT prior to initiation of treatment that was performed at [facility] and was not used for comparison. May need to have comparison done Will follow-up with patient in the a.m. to check on how she is doing. Additional testing will be ordered as appropriate.
[2025-03-10 20:44] LABS: Glucose,Whole Blood 148 mg/dL (70-110)
[2025-03-10] MEDS: ONDANSETRON 4 MG/2 ML VIAL IVP PRN (20:55)
[2025-03-11] MEDS: PROCHLORPERAZINE INJ 10 MG/2 ML VIAL IVP PRN (02:27)
--- NOTE | 2025-03-11 06:08 | P.PN ---
Subjective Progress Note Date: 03/10/25 Patient is a 55-year-old female with a past medical history of hypertension, hyperlipidemia, diabetes type 2 insulin-dependent, metastatic malignant melanoma with mets to liver and lymph nodes, depression, prior history of smoking, GERD and diabetic peripheral neuropathy and history of SVT, prior history of smoking. Patient presents to ER from Dr. Botello's office due to abnormal labs. Patient was also having generalized weakness. She was in the office for her third infusion. She had blood workup done yesterday which showed multiple abnormalities and was recommended to go to ER. She is also having generalized body pains. Also worsening shortness of breath. No chest pain. She does have decreased appetite and not eating well., No nausea no episodes of vomiting. EKG on admission showed sinus rhythm with heart rate 62 Chest x-ray showed no focal consolidation. Elevation of the right hemidiaphragm which is increased from prior exam. Consider sniff test to evaluate for diaphragmatic paralysis. Laboratory data showed WBC 26.7 hemoglobin 8.8 and platelets 634 MCV 75.3 Sodium 118, potassium 4.1 chloride 93 bicarb is 10 BUN 52 and creatinine 2.96, blood sugar 103 lactic acid 1.1 phosphorus 5.8 alk phos 241 proBNP 2350 lipase 441 Urinalysis showed light yellow turbid with large blood nitrite positive leukocyte esterase large elevated RBCs and WBCs. Influenza A B RSV and COVID-19 PCR not detected. 02/22/2025 Patient is in the MICU. Patient is requiring pressor support with Levophed. Resting in the bed. Awake alert and oriented. Currently on room air. Afebrile overnight. Denied any complaints of nausea vomiting abdominal pain or diarrhea. Lab data showed WBC trending down to 21.7 hemoglobin 8.2 and platelets 0.91 sodium improved to 121 potassium 4.5 chloride 101 bicarb is 6 BUN 54 and creatinine 2.72. Antibiotics were changed to cefazolin 2 g Q12. Nephrology and ID is on board. 02/24/2024 Patient is needing intensive care unit. Awake alert and oriented x 3. Currently on room air. Patient is off pressor support since 5 AM this morning. Sodium level improved to 127 today. Patient is on antibiotics in the form of cefepime. Urine culture showed Proteus Mirabella's. Laboratory data showed WBC 17.7 hemoglobin 7.4 and platelets 505 sodium 123 potassium 3.6 chloride 98 bicarb is 15 BUN 44 and creatinine 1.98, calcium 8.3. 02/24/2025 Patient is in MICU. Ureteric and ovarian x 3. Currently on room air. No complaints of chest pain or shortness of breath. Sodium level improved to 127 today. Patient is also been antibiotics for urinary tract infection with ceft riaxone. Urine culture growing Proteus mirabilis. Patient has been afebrile. Patient was given urea 15 g p.o. twice daily. Continued on insulin regimen. Laboratory test showed WBC 16.1 hemoglobin 7.3 and platelets 543 sodium 127 potassium 3.8 chloride 98 bicarb is 15 BUN 4020 creatinine 1.35 and blood sugar 82 magnesium 1.7 albumin 2.4. 02/25/2025 Patient is resting in the bed. Awake alert and oriented. No complaints of chest pain or shortness of breath. Tolerating oral diet. Patient is off IV fluids. He was started on urea and patient was also given Samsca. Sodium level is 126 today. Other laboratory data showed sodium 126 potassium 3.9 chloride 97 bicarb is 19 BUN 56 and creatinine 1.06 and blood sugar 125. Magnesium 1.9. Patient is getting ceftriaxone for urinary tract infection. 02/26 Patient lying in bed comfortable no chest pain or dyspnea No vomiting, she has average appetite No abdominal abdominal pain Patient has ongoing dysuria. 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 As per patient she was getting chemotherapy since November 2024. Her oncologist as outpatient is Dr. Botello. She had 3 cycles of chemotherapy so far. Her Cozaar Aldactone and metformin remain on hold 02/27 Clinically looks the same, awake and alert Main complaint is dysuria which is going on for 1.5 months which looks chronic related to her vaginal mass She is following up with hematology/oncology. Also she follow-up with the surgeon at [facility] with no plans for surgical intervention. Also patient confirms to me that she follow-up with kitchen utility associate in [place]. She has right foot boot on. She says she has fracture on November 26 and she is going to follow-up with her orthopedic in 1 to 2 weeks after discharge. No other new complaints Vital stable and afebrile. 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 Both of these lesions has progressed today She is developing more signs of infection with hypotension, leukocytosis went up to 19.6. Creatinine went up to 1.8, systolic blood pressure dropped from 140s down to 100 but slightly less. Patient thought secondary to have urinary tract infection and she is on ceftriaxone 2 g. Diflucan with loading dose added today. No respiratory symptoms no abdominal pain or diarrhea. No rash. No other source of infection She is also on Cardizem 120 and metoprolol 50 mg for A-fib. Also she is on Eliquis 2.5 mg. Hemoglobin dropped today to 6.6. With no evidence of bleeding. She is getting unit of blood transfusion. Posttransfusion Lasix was held because of borderline low blood pressure. After the blood pressure improved. Also she has CT of the abdomen and pelvis showing generalized lymphadenopathy and around the aorta and retrocaval as well as along the iliac chain Most likely related to her metastatic disease. There is evidence also of hepatic metastasis, hematology/oncology team on the case. Patient was informed with some of the CT findings as above 03/01 Patient is still feeling lethargic. She has large fullness with a bruise in the lower abdomen, she is morbidly obese and she has already pendulous abdomen, the area is standing in her. Possible bleeding. Hold Eliquis and check abdominal u ltrasound She is s/p 1 unit of blood transfusion yesterday, hemoglobin went up 6.6 up to 7.4. She is also on ceftriaxone and Diflucan for suspected UTI She is a known case of malignant melanoma with evidence of metastasis to the abdominal lymphadenopathy and liver. Today at bedside throughout the encounter 03/02 Patient today feels better She has pain at the hematoma site in the lower abdomen Hemoglobin was 7.77.3 and rechecked it was 8.3, she is status post blood transfusion yesterday for hemoglobin dropped to 6.8 No other new signs symptoms Eliquis dose was lowered from 5 down to 2.5 mg for her history of A-fib She remains on ceftriaxone and Diflucan yesterday still has leukocytosis about 21,000 Pulmonary service signed off the case today 03/03 Patient has nausea but no vomiting, she feels dyspepsia Pain in the lower abdomen slightly better per patient lead oxide mill tender and 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 She looks tired and fatigue Hemoglobin stable at 7.6, WBC down to 18,000 creatinine actually went down to 1.6 She is on ceftriaxone Diflucan, Eliquis 2.5 mg scheduled for renal dose and metoprolol 5 mg Patient advised about fluid restriction 03/04 Patient was with several year nausea vomiting yesterday controlled with scopolamine patch and Compazine and she needed another Compazine dose this morning because of vomiting but now controlled because of this we are going to discontinue scopolamine and keep monitoring Also she is hyponatremic 123 yesterday and low urine sodium, they were trying to get her up to the commode yesterday but she was very weak and her legs gave way and she has to be lowered to the ground, blood pressure was soft 90s over 40s. However this morning there is maybe some improvement with her blood pressure in the systolic reading is more than 100. She is feeling little bit stronger. And we checked her orthostatic vitals while lying and sitting up and they were negative. We will check another urine sodium today and serum sodium. And will decide if patient will need more IV bolus or IV fluids. Her Eliquis remains on hold, her lower abdominal hematoma is improving less discoloration and less pain/tenderness discussed with staff 03/05 Patient today feels better she is up in bed and she looks better and more energetic. Patient asking when she will be discharged home Her pain and bruise on the lower abdominal are stable and improving slowly and gradually. Still has vaginal symptoms but today she has less vaginal bleeding for the first time as she explains but has not stopped completely. Blood pressure above 100 which looks stable. Sodium slightly up 123 up to 124 and creatinine 1.6. Leukocyte count is coming down to 16,000 and hemoglobin down to 7.4 from 7.6 She remains on ceftriaxone and Diflucan. Eliquis remains on hold. She is still giving sodium bicarb tablets per nephrology team 03/06 Patient still feels stronger, she was to go home from yesterday Patient denies any other new symptoms. She has ongoing vaginal mass related to her melanoma with evidence of metastasis intra-abdominal the and into the lymph node. She has been treated with antibiotics. She finished her course yesterday we will keep monitoring. Currently she is afebrile. She has chronic leukocytosis. Also her labs are stable low sodium 124, creatinine improved down to 1.52. Hemoglobin is stable at 7.3 Eliquis remains on hold and her intra-abdominal wall hematoma is improving. Possible resume Eliquis upon discharge Sodium also stable creatinine improving, I discussed the case with Dr. Wood who cleared her for discharge today However patient was vomiting despite taking medication therefore we are going to monitor her today. Scopolamine patch and Benadryl was added Possible discharge in 24 to 48 hours if she keeps improved 03/07 Patient was doing well today Had nausea vomiting controlled with Benadryl helped as well She was cleared for discharge by all consultants. After discharge today, patient left on her way to the car she felt generally weak and she fell so she came back, Patient now requesting subacute rehab which is going to be early next week 03/08 Yesterday patient was discharged home. Originally she was evaluated by PT/OT recommended subacute rehab but patient declined Her nausea vomiting controlled and on her way out with her she could not move correctly from a standing position to this vehicle seat so she lost her balance and she has to be lowered to the ground but there is no actual fall with no head trauma or any other part per her body confirmed with her which is at bedside now She still complains from appetite is poor Patient denies vomiting as above no abdominal pain or worsening infection. She tolerates her diet little by little. Ultimately most likely patient will be discharged to rehab on Friday 03/09 Patient came back to the hospital after she discharge and fell on her way leaving the hospital Now she is pending placement to rehab She denies any other new complaint Eliquis was held about a week ago after she developed lower abdominal hematoma. Currently stable recommend to resume her Eliquis starting tomorrow 03/10/2025 Patient is seen and evaluated in follow-up today continuing to have dry heaves and multiple episodes of nausea with vomiting. Patient is taking a number of different antinausea medications with no relief with multiple consultations following including nephrology and oncology. White count remains elevated at 15.4, hemoglobin is 7.3, sodium remains low although stable at 125. Replace electrolytes per protocol. Patient is significantly weak and working on discharge planning possibly to ECF with case management following. Continue PT OT therapy notes. Review of systems: Constitutional: No reports of fatigue, fever, or chills Cardiovascular: No reports of chest pain or palpitations Respiratory: No reports of shortness of breath or cough GI: reports of nausea, with continued dry heaves and vomiting, no bowel movement as of yet : No reports of dysuria or retention Neurovascular: reports of weakness All medications have been reviewed Physical exam: GENERAL: The patient is alert and oriented x3, not in any acute distress. Well developed, well nourished. Appears older than stated age, ill-appearing, morbidly obese HEENT: Pupils are round and equally reacting to light. EOMI. No scleral icterus. No conjunctival pallor. Normocephalic, atraumatic. No pharyngeal erythema. No thyromegaly. CARDIOVASCULAR: S1 and S2 present. No murmurs, rubs, or gallops. PULMONARY: Diminished breath sounds bilaterally otherwise chest is clear to auscultation, no wheezing , no crackles. ABDOMEN: Soft, obese, nontender, nondistended, normoactive bowel sounds. No palpable organomegaly. MUSCULOSKELETAL: No joint swelling or deformity. EXTREMITIES: No cyanosis, clubbing, or pedal edema. NEUROLOGICAL: Gross neurological examination did not reveal any focal deficits. Diffusely weak SKIN: No rashes. no petechiae. Assessment: Lower abdominal hematoma suspected with severe anemia required unit of blood transfusion on 03/01 Severe hyponatremia with sodium level 118 on admission-hypoosmolar hyponatremia due to decreased oral intake and LISSETTE. Stable at 125 today Acute kidney injury. Possible ATN. SIADH cannot be excluded due to underlying malignancy. Creatinine 2.96 on admission baseline 1.0 Fall outside the hospital with generalized weakness and difficulty ambulating Non-anion gap metabolic acidosis Acute urinary tract infection with Proteus Mirabella's. Mild pancreatitis with lipase level 441, improved Malignant melanoma with mets to liver and lymph nodes, generalized intra- abdominal lymphadenopathy and hepatic metastasis. On chemoinfusion and is on follow-up with oncology. Diabetes type 2 insulin-dependent Diabetic peripheral neuropathy History of SVT Paroxysmal atrial fibrillation Osteoarthritis Hypertension Hyperlipidemia GERD Depression Prior history of smoking Microcytic anemia rule out iron deficiency. Hemoglobin 8.8 on admission morbid obesity with a BMI of 48.8 GI prophylaxis DVT prophylaxis No code Plan: Continue with the current antiemetics and adjust medications as patient continues to have dry heaving and vomiting Hold Eliquis 2.5 mg, keep monitoring hemoglobin and the hematoma Patient to continue with antibiotic regimen per ID recommendations Monitor sodium level, nephrology following and sodium is 125 Recommend PT/OT therapy evaluation with case management following and plan is to discharge to possible ECF for continued strength and mobility as patient fell attempting to leave the hospital on last admission and unable to get up. Jemima ent has had frequent hospitalizations with prolonged hospitalization and is significantly weak from continued strength mobility Due to multiple complex medical issues, overall prognosis is extremely guarded The impression and plan of care has been dictated by Roselyn Rod, Nurse Prac titioner as directed. Dr. Iris MD I have performed a history and examination and MDM of this patient, discussed the same with the dictator, and agree with the dictator's assessment and plan as written ,documented as a scribe. Based on total visit time, I have performed more than 50% of the visit. Objective - Vital Signs Vital signs: Vital Signs Temp 97.8 F 03/10/25 07:42 Pulse 78 03/10/25 07:42 Resp 17 03/10/25 07:42 BP 100/64 03/10/25 07:42 Pulse Ox 97 03/10/25 07:42 FiO2 Intake & Output 03/09/25 03/10/25 03/10/25 18:59 06:59 18:59 Weight 143.6 kg Other: Voiding Method Bedpan Bedpan External Catheter # Voids 4 2 # Bowel Movements 1 - Labs CBC & Chem 7: 03/09/25 03:03 03/09/25 03:03 Labs: Abnormal Lab Results - Last 24 Hours (Table) 03/09/25 03/09/25 03/09/25 Range/Units 03:03 03:03 11:28 WBC 15.14 H (4.50-10.00) X 10*3/uL RBC 2.66 L (4.10-5.20) X 10*6/uL Hgb 7.3 L (12.0-15.0) g/dL Hct 23.4 L (37.2-46.3) % MCHC 31.2 L (32.0-37.0) g/dL RDW 19.9 H (11.5-14.5) % Plt Count 655 H (140-440) X 10*3/uL Immature Gran # 0.67 H (0.00-0.04) X 10*3/uL Neutrophils # 11.93 H (1.80-7.70) X 10*3/uL Eosinophils # 0.66 H (0.04-0.35) X 10*3/uL NRBC/100 WBC Diff 0.03 H (0.00-0.01) X 10*3/uL Sodium 125 L (135-145) mmol/L Chloride 93 L (96-109) mmol/L Carbon Dioxide 20.4 L (21.6-31.8) mmol/L BUN 87.8 H (9.0-27.0) mg/dL Creatinine 1.6 H (0.6-1.5) mg/dL Est GFR (CKD-EPI) 37 L (>=60) BUN/Creatinine Ratio 54.88 H (12.00-20.00) Ratio Glucose 160 H (70-110) mg/dL POC Glucose (mg/dL) 181 H (70-110) mg/dL 03/09/25 03/09/25 03/10/25 Range/Units 17:27 19:52 06:08 WBC (4.50-10.00) X 10*3/uL RBC (4.10-5.20) X 10*6/uL Hgb (12.0-15.0) g/dL Hct (37.2-46.3) % MCHC (32.0-37.0) g/dL RDW (11.5-14.5) % Plt Count (140-440) X 10*3/uL Immature Gran # (0.00-0.04) X 10*3/uL Neutrophils # (1.80-7.70) X 10*3/uL Eosinophils # (0.04-0.35) X 10*3/uL NRBC/100 WBC Diff (0.00-0.01) X 10*3/uL Sodium (135-145) mmol/L Chloride (96-109) mmol/L Carbon Dioxide (21.6-31.8) mmol/L BUN (9.0-27.0) mg/dL Creatinine (0.6-1.5) mg/dL Est GFR (CKD-EPI) (>=60) BUN/Creatinine Ratio (12.00-20.00) Ratio Glucose (70-110) mg/dL POC Glucose (mg/dL) 263 H 188 H 154 H (70-110) mg/dL
[2025-03-11 06:10] LABS: Glucose,Whole Blood 168 mg/dL (70-110)
[2025-03-11 08:36] LABS: Basophils # (A) 0.02 X 10*3/uL (0.00-0.10); Basophils % (A) 0.1 %; Eosinophils # (A) 0.47 X 10*3/uL (0.04-0.35); Eosinophils % (A) 3.1 %; HCT 24.1 % (37.2-46.3); HGB 7.3 g/dL (12.0-15.0); Lymphocytes # (A) 0.91 X 10*3/uL (0.90-5.00); Lymphocytes % (A) 6.1 %; MCH 26.5 pg (27.0-32.0); MCHC 30.3 g/dL (32.0-37.0); MCV 87.6 FL (80.0-97.0); Mean Platelet Volume 9.8 FL (9.5-12.2); Monocytes # (A) 0.69 X 10*3/uL (0.20-1.00); Monocytes % (A) 4.6 %; NRBC Per 100 WBC 0.02 X 10*3/uL (0.00-0.01); Neutrophils # (A) 12.38 X 10*3/uL (1.80-7.70); Platelet Count 725 X 10*3/uL (140-440); RBC 2.75 X 10*6/uL (4.10-5.20); WBC 14.94 X 10*3/uL (4.50-10.00)
[2025-03-11 08:42] LABS: BUN/Creat Ratio 50.75 Ratio (12.00-20.00); Blood Urea Nitrogen 81.2 mg/dL (9.0-27.0); Calcium 8.6 mg/dL (8.7-10.3); Carbon Dioxide 18.3 mmol/L (21.6-31.8); Chloride 92 mmol/L (96-109); Glucose 140 mg/dL (70-110); Magnesium 2.2 mg/dL (1.5-2.4); Potassium 4.8 mmol/L (3.5-5.5); Sodium 124 mmol/L (135-145)
--- NOTE | 2025-03-11 10:39 | P.PN ---
Subjective Patient is seen in follow-up for acute kidney injury and hyponatremia. Sodium level stable at 124 and creatinine stable at 1.6. Oral intake remains poor. Currently receiving normal saline. Vital signs are stable. General: No acute distress. HEENT: Head exam is unremarkable. LUNGS: No audible rhonchi or wheezes. HEART: Rate and Rhythm are regular. ABDOMEN: Nontender. EXTREMITITES: No edema. Objective - Vital Signs Vital signs: Vital Signs Temp 99.3 F 03/11/25 06:45 Pulse 84 03/11/25 06:45 Resp 17 03/11/25 06:45 BP 102/58 03/11/25 06:51 Pulse Ox 98 03/11/25 06:45 FiO2 Intake & Output 03/10/25 03/11/25 03/11/25 18:59 06:59 18:59 Intake Total 120 Output Total 325 Balance -205 Weight 145.5 kg Intake: Oral 120 Output: Urine 325 Other: Voiding Method External Catheter # Bowel Movements 1 - Labs CBC & Chem 7: 03/11/25 02:37 03/11/25 02:37 Labs: Abnormal Lab Results - Last 24 Hours (Table) 03/10/25 03/10/25 03/10/25 Range/Units 11:46 16:48 20:42 WBC (4.50-10.00) X 10*3/uL RBC (4.10-5.20) X 10*6/uL Hgb (12.0-15.0) g/dL Hct (37.2-46.3) % MCH (27.0-32.0) pg MCHC (32.0-37.0) g/dL RDW (11.5-14.5) % Plt Count (140-440) X 10*3/uL Immature Gran # (0.00-0.04) X 10*3/uL Neutrophils # (1.80-7.70) X 10*3/uL Eosinophils # (0.04-0.35) X 10*3/uL NRBC/100 WBC Diff (0.00-0.01) X 10*3/uL Sodium (135-145) mmol/L Chloride (96-109) mmol/L Carbon Dioxide (21.6-31.8) mmol/L Anion Gap (4.00-12.00) mmol/L BUN (9.0-27.0) mg/dL Creatinine (0.6-1.5) mg/dL Est GFR (CKD-EPI) (>=60) BUN/Creatinine Ratio (12.00-20.00) Ratio Glucose (70-110) mg/dL POC Glucose (mg/dL) 175 H 163 H 148 H (70-110) mg/dL Calcium (8.7-10.3) mg/dL 03/11/25 03/11/25 03/11/25 Range/Units 02:37 02:37 06:09 WBC 14.94 H (4.50-10.00) X 10*3/uL RBC 2.75 L (4.10-5.20) X 10*6/uL Hgb 7.3 L (12.0-15.0) g/dL Hct 24.1 L (37.2-46.3) % MCH 26.5 L (27.0-32.0) pg MCHC 30.3 L (32.0-37.0) g/dL RDW 21.0 H (11.5-14.5) % Plt Count 725 H (140-440) X 10*3/uL Immature Gran # 0.47 H (0.00-0.04) X 10*3/uL Neutrophils # 12.38 H (1.80-7.70) X 10*3/uL Eosinophils # 0.47 H (0.04-0.35) X 10*3/uL NRBC/100 WBC Diff 0.02 H (0.00-0.01) X 10*3/uL Sodium 124 L (135-145) mmol/L Chloride 92 L (96-109) mmol/L Carbon Dioxide 18.3 L (21.6-31.8) mmol/L Anion Gap 13.70 H (4.00-12.00) mmol/L BUN 81.2 H (9.0-27.0) mg/dL Creatinine 1.6 H (0.6-1.5) mg/dL Est GFR (CKD-EPI) 37 L (>=60) BUN/Creatinine Ratio 50.75 H (12.00-20.00) Ratio Glucose 140 H (70-110) mg/dL POC Glucose (mg/dL) 168 H (70-110) mg/dL Calcium 8.6 L (8.7-10.3) mg/dL Assessment and Plan Plan: Assessment: 1. 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 Urine osmolality 252. Sodium 124.. Cortisol level high. TSH normal. Urine osmolality 252. 2. Malignant melanoma with metastatic disease to liver and lymph nodes. 3. Acute kidney injury secondary to ATN secondary to severe sepsis. Baseline creatinine near 1 from December 2024. Creatinine 2.96 on admission and improved to 1.06 - now worsening again due to acute blood loss anemia. 4. UTI on antibiotics. Urine culture positive for Proteus. 5. Metabolic acidosis secondary to acute kidney injury and IV fluids. Was also on metformin. On oral bicarb. 6. Diabetes mellitus. 7. Anemia secondary to acute blood loss. Iron deficiency noted. s/p IV iron and blood transfusion this admission. Plan: Encourage oral intake. Hep-Lock IV fluids. Maintain fluid restriction. Samsca x 1 dose today. Zofran as needed.
[2025-03-11] MEDS: APIXABAN 2.5 MG TABLET PO SCH (11:43)
[2025-03-11] MEDS: TOLVAPTAN 15 MG TABLET PO ONE (11:47)
[2025-03-11 11:48] LABS: Glucose,Whole Blood 150 mg/dL (70-110)
--- NOTE | 2025-03-11 14:11 | P.PN ---
Subjective Progress Note Date: 03/10/25 Principal diagnosis: Reason for follow-up is sepsis and UTI Patient is a 55-year-old female with a past medical history significant for stage IV malignant melanoma on chemo, Diabetes Mellitus, GERD/Reflux, Hyperlipidemia, Hypertension, Osteoarthritis (OA) presenting to the hospital for evaluation of generalized weakness did have urinary symptoms a positive UA concerning for symptomatic UTI with sepsis requiring admission by ICU. On today's evaluation that is 03/10/2025,the patient denies any fever or any chills, patient is breathing comfortably on room air, the patient denies chest pain shortness of breath and no significant cough, patient denies abdominal brigitte n, still complaining of nausea but no vomiting or diarrhea. No lab draw today Objective - Vital Signs Vital signs: Vital Signs Temp 97.8 F 03/10/25 07:42 Pulse 78 03/10/25 07:42 Resp 17 03/10/25 07:42 BP 100/64 03/10/25 07:42 Pulse Ox 97 03/10/25 07:42 FiO2 Intake & Output 03/09/25 03/10/25 03/10/25 18:59 06:59 18:59 Weight 143.6 kg Other: Voiding Method Bedpan Bedpan External Catheter # Voids 4 2 # Bowel Movements 1 - Exam GENERAL DESCRIPTION: A middle-age female lying in bed in no distress RESPIRATORY SYSTEM: Unlabored breathing , decreased breath sounds at bases HEART: S1 S2 regular rate and rhythm , ABDOMEN: Soft , no tenderness EXTREMITIES: No edema feet - Labs CBC & Chem 7: 03/11/25 02:37 03/11/25 02:37 Labs: Abnormal Lab Results - Last 24 Hours (Table) 03/09/25 03/09/25 03/10/25 Range/Units 17:27 19:52 06:08 POC Glucose (mg/dL) 263 H 188 H 154 H (70-110) mg/dL 03/10/25 Range/Units 11:46 POC Glucose (mg/dL) 175 H (70-110) mg/dL Assessment and Plan (1) Sepsis Current Visit: Yes Status: Acute Code(s): A41.9 - SEPSIS, UNSPECIFIED ORGANISM SNOMED Code(s): 08846801 (2) LISSETTE (acute kidney injury) Current Visit: Yes Status: Acute Code(s): N17.9 - ACUTE KIDNEY FAILURE, UN SPECIFIED SNOMED Code(s): 68650001 (3) UTI (urinary tract infection) Current Visit: Yes Status: Acute Code(s): N39.0 - URINARY TRACT INFECTION, SITE NOT SPECIFIED SNOMED Code(s): 15054601 (4) Leukocytosis Current Visit: Yes Status: Acute Code(s): D72.829 - ELEVATED WHITE BLOOD CELL COUNT, UNSPECIFIED SNOMED Code(s): 205169443 Plan: 1patient presented hospital with sepsis in this patient who did have tachycardia hypotension elevated white count meeting criteria for SIRS/sepsis source likely urinary in this patient has significantly positive UA along with urinary symptoms likely from enteric gram-negative pathogen keeping in mind history of cancer on chemo will need to cover for resistant gram-negative pathogen 2-patient did have a CT of abdominal pelvis mention worsening lymphadenopathy and concern for hepatic metastasis right lower abdominal wall hematoma, is being managed by hematology oncology 3the patient is afebrile and white count is trending down as of yesterday off antibiotic therapy no CBC was done today we will monitor closely off antibiotic Dictation was produced using [employer] dictation software. please excuse any grammatical, word or spelling errors.
--- NOTE | 2025-03-11 14:12 | P.PN ---
Subjective Progress Note Date: 03/11/25 Principal diagnosis: Reason for follow-up is sepsis and UTI Patient is a 55-year-old female with a past medical history significant for stage IV malignant melanoma on chemo, Diabetes Mellitus, GERD/Reflux, Hyperlipidemia, Hypertension, Osteoarthritis (OA) presenting to the hospital for evaluation of generalized weakness did have urinary symptoms a positive UA concerning for symptomatic UTI with sepsis requiring admission by ICU. On today's evaluation that is 03/11/2025,the patient remains to be afebrile, patient is on room air not requiring supplemental oxygen and denies any shortness of breath no chest pain or cough.Patient denies acute complaint of feeling nauseated however denies abdominal pain or diarrhea no urinary symptoms. Patient white count is down to 14.94, creatinine is 1.6 Objective - Vital Signs Vital signs: Vital Signs Temp 99.3 F 03/11/25 06:45 Pulse 84 03/11/25 06:45 Resp 17 03/11/25 06:45 BP 102/58 03/11/25 06:51 Pulse Ox 98 03/11/25 06:45 FiO2 Intake & Output 03/10/25 03/11/25 03/11/25 18:59 06:59 18:59 Intake Total 120 Output Total 325 Balance -205 Weight 145.5 kg Intake: Oral 120 Output: Urine 325 Other: Voiding Method External Catheter External Catheter # Bowel Movements 1 - Exam GENERAL DESCRIPTION: A middle-age female lying in bed in no distress RESPIRATORY SYSTEM: Unlabored breathing , decreased breath sounds at bases HEART: S1 S2 regular rate and rhythm , ABDOMEN: Soft , no tenderness EXTREMITIES: No edema feet - Labs CBC & Chem 7: 03/11/25 02:37 03/11/25 02:37 Labs: Abnormal Lab Results - Last 24 Hours (Table) 03/10/25 03/10/25 03/11/25 Range/Units 16:48 20:42 02:37 WBC (4.50-10.00) X 10*3/uL RBC (4.10-5.20) X 10*6/uL Hgb (12.0-15.0) g/dL Hct (37.2-46.3) % MCH (27.0-32.0) pg MCHC (32.0-37.0) g/dL RDW (11.5-14.5) % Plt Count (140-440) X 10*3/uL Immature Gran # (0.00-0.04) X 10*3/uL Neutrophils # (1.80-7.70) X 10*3/uL Eosinophils # (0.04-0.35) X 10*3/uL NRBC/100 WBC Diff (0.00-0.01) X 10*3/uL Sodium 124 L (135-145) mmol/L Chloride 92 L (96-109) mmol/L Carbon Dioxide 18.3 L (21.6-31.8) mmol/L Anion Gap 13.70 H (4.00-12.00) mmol/L BUN 81.2 H (9.0-27.0) mg/dL Creatinine 1.6 H (0.6-1.5) mg/dL Est GFR (CKD-EPI) 37 L (>=60) BUN/Creatinine Ratio 50.75 H (12.00-20.00) Ratio Glucose 140 H (70-110) mg/dL POC Glucose (mg/dL) 163 H 148 H (70-110) mg/dL Calcium 8.6 L (8.7-10.3) mg/dL 03/11/25 03/11/25 03/11/25 Range/Units 02:37 06:09 11:47 WBC 14.94 H (4.50-10.00) X 10*3/uL RBC 2.75 L (4.10-5.20) X 10*6/uL Hgb 7.3 L (12.0-15.0) g/dL Hct 24.1 L (37.2-46.3) % MCH 26.5 L (27.0-32.0) pg MCHC 30.3 L (32.0-37.0) g/dL RDW 21.0 H (11.5-14.5) % Plt Count 725 H (140-440) X 10*3/uL Immature Gran # 0.47 H (0.00-0.04) X 10*3/uL Neutrophils # 12.38 H (1.80-7.70) X 10*3/uL Eosinophils # 0.47 H (0.04-0.35) X 10*3/uL NRBC/100 WBC Diff 0.02 H (0.00-0.01) X 10*3/uL Sodium (135-145) mmol/L Chloride (96-109) mmol/L Carbon Dioxide (21.6-31.8) mmol/L Anion Gap (4.00-12.00) mmol/L BUN (9.0-27.0) mg/dL Creatinine (0.6-1.5) mg/dL Est GFR (CKD-EPI) (>=60) BUN/Creatinine Ratio (12.00-20.00) Ratio Glucose (70-110) mg/dL POC Glucose (mg/dL) 168 H 150 H (70-110) mg/dL Calcium (8.7-10.3) mg/dL Assessment and Plan (1) Sepsis Current Visit: Yes Status: Acute Code(s): A41.9 - SEPSIS, UNSPECIFIED ORGANISM SNOMED Code(s): 21925773 (2) LISSETTE (acute kidney injury) Current Visit: Yes Status: Acute Code(s): N17.9 - ACUTE KIDNEY FAILURE, UNSPECIFIED SNOMED Code(s): 79663687 (3) UTI (urinary tract infection) Current Visit: Yes Status: Acute Code(s): N39.0 - URINARY TRACT INFECTION, SITE NOT SPECIFIED SNOMED Code(s): 86163374 (4) Leukocytosis Current Visit: Yes Status: Acute Code(s): D72.829 - ELEVATED WHITE BLOOD CELL COUNT, UNSPECIFIED SNOMED Code(s): 810908514 Plan: 1patient [facility] hospital with sepsis in this patient who did have tachycardia hypotension elevated white count meeting criteria for SIRS/sepsis source likely urinary in this patient has significantly positive UA along with urinary symptoms likely from enteric gram-negative pathogen keeping in mind history of cancer on chemo will need to cover for resistant gram-negative pathogen 2-patient did have a CT of abdominal pelvis mention worsening lymphadenopathy and concern for hepatic metastasis right lower abdominal wall hematoma, is being managed by hematology oncology 3the patient is afebrile and white count is trending down to 14.9 today off antibiotic therapy will monitor closely Dictation was produced using [employer] software. please excuse any grammatical, word or spelling errors. Time with Patient: Less than 30
--- NOTE | 2025-03-11 16:44 | MR ---
EXAMINATION TYPE: MR brain wo/w con DATE OF EXAM: 03/11/2025 4:07 PM COMPARISON: None. CLINICAL INDICATION: Female, 55 years old with history of intractable vomiting, Hx met melanoma, Intr actable vomiting, Hx met melanoma TECHNIQUE: Multiplanar, multiecho imaging on a 3.0 Saundra magnet is performed through the brain. Stud y is performed within 24 hours of arrival to the hospital.Multiplanar, multiecho imaging on a 3.0 Gladys la magnet is performed through the knee. IV Contrast: 15 mL Gadobutrol (None, if empty) FINDINGS: The craniovertebral junction is normal. The pituitary is normal. Diffusion-weighted imaging is performed. No abnormal hyperintensity is present to suggest an acute i ntracranial infarct or acute ischemic change. There is some mild periventricular white matter hypodensity, likely on the basis of chronic white mat ter ischemic changes Ventricles and sulci are appropriate for the patient age. No suspicious enhancement is evident. IMPRESSION: 1. No suspicious changes to suggest metastatic disease. 2. Mild periventricular white matter hyperintensity, likely on the basis of chronic white matter isch emic changes. [facility], Workstation: [facility], 03/11/2025 4:42 PM
[2025-03-11 17:16] LABS: Glucose,Whole Blood 148 mg/dL (70-110)
[2025-03-11 20:25] LABS: Glucose,Whole Blood 226 mg/dL (70-110)
--- NOTE | 2025-03-11 20:56 | P.PN ---
Subjective Progress Note Date: 03/11/25 Principal diagnosis: UTI, LISSETTE. Metastatic melanoma Today pt cont to have dry heaves and vomiting, despite changes in antiemetics. She feels terrible Objective - Vital Signs Vital signs: Vital Signs Temp 99.3 F 03/11/25 06:45 Pulse 84 03/11/25 06:45 Resp 17 03/11/25 06:45 BP 102/58 03/11/25 06:51 Pulse Ox 98 03/11/25 06:45 FiO2 Intake & Output 03/10/25 03/11/25 03/11/25 18:59 06:59 18:59 Intake Total 120 Output Total 325 Balance -205 Weight 145.5 kg 145.5 kg Intake: Oral 120 Output: Urine 325 Other: Voiding Method External Catheter External Catheter # Bowel Movements 1 - Constitutional General appearance: Present: cooperative, mild distress, morbidly obese - EENT Eyes: Present: anicteric sclerae, EOMI ENT: Present: hearing grossly normal - Respiratory Respiratory: bilateral: CTA - Cardiovascular Rhythm: regular - Peripheral edema leg Peripheral Edema: bilateral: 2+ - Gastrointestinal Gastrointestinal Comment(s): Dry heaves persist General gastrointestinal: Present: soft - Integumentary Integumentary: Present: pale - Neurologic Neurologic: Present: CNII-XII intact (grossly) - Musculoskeletal Musculoskeletal: Present: generalized weakness - Psychiatric Psychiatric Comment(s): Pt is lucid most of the time, occasionally pt makes statements that are not cohesive with the conversation Psychiatric: Present: A&O x's 3, appropriate affect - Labs CBC & Chem 7: 03/11/25 02:37 03/11/25 02:37 Labs: Abnormal Lab Results - Last 24 Hours (Table) 03/10/25 03/10/25 03/11/25 Range/Units 16:48 20:42 02:37 WBC (4.50-10.00) X 10*3/uL RBC (4.10-5.20) X 10*6/uL Hgb (12.0-15.0) g/dL Hct (37.2-46.3) % MCH (27.0-32.0) pg MCHC (32.0-37.0) g/dL RDW (11.5-14.5) % Plt Count (140-440) X 10*3/uL Immature Gran # (0.00-0.04) X 10*3/uL Neutrophils # (1.80-7.70) X 10*3/uL Eosinophils # (0.04-0.35) X 10*3/uL NRBC/100 WBC Diff (0.00-0.01) X 10*3/uL Sodium 124 L (135-145) mmol/L Chloride 92 L (96-109) mmol/L Carbon Dioxide 18.3 L (21.6-31.8) mmol/L Anion Gap 13.70 H (4.00-12.00) mmol/L BUN 81.2 H (9.0-27.0) mg/dL Creatinine 1.6 H (0.6-1.5) mg/dL Est GFR (CKD-EPI) 37 L (>=60) BUN/Creatinine Ratio 50.75 H (12.00-20.00) Ratio Glucose 140 H (70-110) mg/dL POC Glucose (mg/dL) 163 H 148 H (70-110) mg/dL Calcium 8.6 L (8.7-10.3) mg/dL 03/11/25 03/11/25 03/11/25 Range/Units 02:37 06:09 11:47 WBC 14.94 H (4.50-10.00) X 10*3/uL RBC 2.75 L (4.10-5.20) X 10*6/uL Hgb 7.3 L (12.0-15.0) g/dL Hct 24.1 L (37.2-46.3) % MCH 26.5 L (27.0-32.0) pg MCHC 30.3 L (32.0-37.0) g/dL RDW 21.0 H (11.5-14.5) % Plt Count 725 H (140-440) X 10*3/uL Immature Gran # 0.47 H (0.00-0.04) X 10*3/uL Neutrophils # 12.38 H (1.80-7.70) X 10*3/uL Eosinophils # 0.47 H (0.04-0.35) X 10*3/uL NRBC/100 WBC Diff 0.02 H (0.00-0.01) X 10*3/uL Sodium (135-145) mmol/L Chloride (96-109) mmol/L Carbon Dioxide (21.6-31.8) mmol/L Anion Gap (4.00-12.00) mmol/L BUN (9.0-27.0) mg/dL Creatinine (0.6-1.5) mg/dL Est GFR (CKD-EPI) (>=60) BUN/Creatinine Ratio (12.00-20.00) Ratio Glucose (70-110) mg/dL POC Glucose (mg/dL) 168 H 150 H (70-110) mg/dL Calcium (8.7-10.3) mg/dL Assessment and Plan (1) LISSETTE (acute kidney injury) Current Visit: Yes Status: Acute Code(s): N17.9 - ACUTE KIDNEY FAILURE, UNSPECIFIED SNOMED Code(s): 20287868 (2) Hematoma Current Visit: Yes Status: Acute Code(s): T14.8XXA - OTHER INJURY OF UNSPECIFIED BODY REGION, INITIAL ENCOUNTER SNOMED Code(s): 170407800 (3) Melanoma Current Visit: Yes Status: Acute Priority: High Code(s): C43.9 - MALIGNANT MELANOMA OF SKIN, UNSPECIFIED SNOMED Code(s): 680201578 (4) Dysfunctional uterine bleeding Current Visit: No Status: Acute Code(s): N93.8 - OTHER SPECIFIED ABNORMAL UTERINE AND VAGINAL BLEEDING SNOMED Code(s): 36625535117925 Plan: Septic shock secondary to UTI -Improved with treatment of the same -ID following -Repeat urine and blood cultures due to leukocytosis on 02/27/2025 were negative -Leukocytosis slow to improve. Will continue to monitor Hyponatremia -Nephrology following. -Sodium stable at 124. BUN and creatinine stable Hematoma -CT AP reporting massive lymphadenopathy in the inguinal lymph nodes. Subcutaneous increased density present at the level of the iliac wings both medially and laterally. Nonspecific, possibly edema or contusions -Ultrasound 03/01/2025 showing fluid collection 5.3 x 5.1 x 1.3 cm. Parish to be a hematoma. -Hemoglobin has remained stable, in the 7 range since transfusions on 02/28 and 03/01 for hemoglobin in the 6 range. -Eliquis was resumed but discontinued for persistent hematuria -Continue to monitor CBC N/V -Persistent despite multiple medications adjustments -Pt agreed to MRI of the brain to rule out brain mets as an underlying cause. -We discussed if the MRI is neg may have to consider EGD to see if there is something going on in the esophagus or stomach. Pt verbalized understanding. Metastatic melanoma - Received 3 cycles of Opdualag, last dose on 02/17/2025 - CT AP reported known metastases to the liver and abdominal/iliac lymphadenopathy. This scan was also compared to scans obtained in November 2023. She had a PET CT prior to initiation of treatment that was performed at [facility] and was not used for comparison. May need to have comparison done Daily follow up. Additional testing will be ordered as appropriate.
[2025-03-12] MEDS: bisacodyL 10 MG SUPP RECTAL STA (02:11)
[2025-03-12 06:11] LABS: Glucose,Whole Blood 164 mg/dL (70-110)
[2025-03-12] MEDS: polyethylene glycoL 3350 17 GM POWD.PACK PO SCH (08:23)
[2025-03-12 08:28] LABS: BUN/Creat Ratio 49.87 Ratio (12.00-20.00); Blood Urea Nitrogen 74.8 mg/dL (9.0-27.0); Calcium 8.5 mg/dL (8.7-10.3); Carbon Dioxide 17.2 mmol/L (21.6-31.8); Chloride 94 mmol/L (96-109); Glucose 132 mg/dL (70-110); Potassium 4.7 mmol/L (3.5-5.5); Sodium 125 mmol/L (135-145)
[2025-03-12 08:33] LABS: Basophils # (A) 0.02 X 10*3/uL (0.00-0.10); Basophils % (A) 0.1 %; Eosinophils # (A) 0.41 X 10*3/uL (0.04-0.35); Eosinophils % (A) 2.8 %; HCT 23.3 % (37.2-46.3); HGB 7.1 g/dL (12.0-15.0); Lymphocytes # (A) 0.86 X 10*3/uL (0.90-5.00); Lymphocytes % (A) 5.9 %; MCH 26.3 pg (27.0-32.0); MCHC 30.5 g/dL (32.0-37.0); MCV 86.3 FL (80.0-97.0); Mean Platelet Volume 9.6 FL (9.5-12.2); Monocytes # (A) 0.61 X 10*3/uL (0.20-1.00); Monocytes % (A) 4.2 %; NRBC Per 100 WBC 0 X 10*3/uL (0.00-0.01); Neutrophils # (A) 12.39 X 10*3/uL (1.80-7.70); Neutrophils % (A) 84.9 %; Platelet Count 691 X 10*3/uL (140-440); RDW 21.1 % (11.5-14.5)
--- NOTE | 2025-03-12 10:18 | P.PN ---
Subjective Patient is seen in follow-up for acute kidney injury and hyponatremia. Sodium level stable at 125. Oral intake remains poor. Still having dry heaves. Vital signs are stable. General: No acute distress. HEENT: Head exam is unremarkable. LUNGS: No audible rhonchi or wheezes. HEART: Rate and Rhythm are regular. ABDOMEN: Nontender. EXTREMITITES: No edema. Objective - Vital Signs Vital signs: Vital Signs Temp 97.7 F 03/12/25 07:50 Pulse 85 03/12/25 07:50 Resp 16 03/12/25 07:50 BP 113/71 03/12/25 07:50 Pulse Ox 99 03/12/25 07:50 FiO2 Intake & Output 03/11/25 03/12/25 03/12/25 18:59 06:59 18:59 Output Total 300 Balance -300 Weight 145.5 kg 142 kg Output: Urine 300 Other: Voiding Method External Catheter Bedpan Bedpan # Voids 4 3 2 # Bowel Movements 1 - Labs CBC & Chem 7: 03/12/25 03:05 03/12/25 03:05 Labs: Abnormal Lab Results - Last 24 Hours (Table) 03/11/25 03/11/25 03/11/25 Range/Units 11:47 17:15 20:23 WBC (4.50-10.00) X 10*3/uL RBC (4.10-5.20) X 10*6/uL Hgb (12.0-15.0) g/dL Hct (37.2-46.3) % MCH (27.0-32.0) pg MCHC (32.0-37.0) g/dL RDW (11.5-14.5) % Plt Count (140-440) X 10*3/uL Immature Gran # (0.00-0.04) X 10*3/uL Neutrophils # (1.80-7.70) X 10*3/uL Lymphocytes # (0.90-5.00) X 10*3/uL Eosinophils # (0.04-0.35) X 10*3/uL Sodium (135-145) mmol/L Chloride (96-109) mmol/L Carbon Dioxide (21.6-31.8) mmol/L Anion Gap (4.00-12.00) mmol/L BUN (9.0-27.0) mg/dL Est GFR (CKD-EPI) (>=60) BUN/Creatinine Ratio (12.00-20.00) Ratio Glucose (70-110) mg/dL POC Glucose (mg/dL) 150 H 148 H 226 H (70-110) mg/dL Calcium (8.7-10.3) mg/dL 03/12/25 03/12/25 03/12/25 Range/Units 03:05 03:05 06:07 WBC 14.60 H (4.50-10.00) X 10*3/uL RBC 2.70 L (4.10-5.20) X 10*6/uL Hgb 7.1 L (12.0-15.0) g/dL Hct 23.3 L (37.2-46.3) % MCH 26.3 L (27.0-32.0) pg MCHC 30.5 L (32.0-37.0) g/dL RDW 21.1 H (11.5-14.5) % Plt Count 691 H (140-440) X 10*3/uL Immature Gran # 0.31 H (0.00-0.04) X 10*3/uL Neutrophils # 12.39 H (1.80-7.70) X 10*3/uL Lymphocytes # 0.86 L (0.90-5.00) X 10*3/uL Eosinophils # 0.41 H (0.04-0.35) X 10*3/uL Sodium 125 L (135-145) mmol/L Chloride 94 L (96-109) mmol/L Carbon Dioxide 17.2 L (21.6-31.8) mmol/L Anion Gap 13.80 H (4.00-12.00) mmol/L BUN 74.8 H (9.0-27.0) mg/dL Est GFR (CKD-EPI) 40 L (>=60) BUN/Creatinine Ratio 49.87 H (12.00-20.00) Ratio Glucose 132 H (70-110) mg/dL POC Glucose (mg/dL) 164 H (70-110) mg/dL Calcium 8.5 L (8.7-10.3) mg/dL Assessment and Plan Plan: Assessment: 1. 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 Urine osmolality 252. Sodium 125. Cortisol level high. TSH normal. Urine osmolality 252. 2. Malignant melanoma with metastatic disease to liver and lymph nodes. 3. Acute kidney injury secondary to ATN secondary to severe sepsis. Baseline creatinine near 1 from December 2024. Creatinine 2.96 on admission and improved to 1.06 - now stable near 1.5-1.6. 4. UTI status post antibiotics. Urine culture positive for Proteus. 5. Metabolic acidosis secondary to acute kidney injury and IV fluids. Was also on metformin. On oral bicarb. 6. Diabetes mellitus. 7. Anemia secondary to acute blood loss. Iron deficiency noted. s/p IV iron and blood transfusion this admission. Hematology following. Plan: Encourage oral intake. Add sodium chloride tabs for a day. Status post [facility] March 11, 2025. Maintain fluid restriction. Zofran as needed.
--- NOTE | 2025-03-12 10:19 | P.PN ---
Subjective Progress Note Date: 03/11/25 Patient is a 55-year-old female with a past medical history of hypertension, hyperlipidemia, diabetes type 2 insulin-dependent, metastatic malignant melanoma with mets to liver and lymph nodes, depression, prior history of smoking, GERD and diabetic peripheral neuropathy and history of SVT, prior history of smoking. Patient presents to ER from Dr. Botello's office due to abnormal labs. Patient was also having generalized weakness. She was in the office for her third infusion. She had blood workup done yesterday which showed multiple abnormalities and was recommended to go to ER. She is also having generalized body pains. Also worsening shortness of breath. No chest pain. She does have decreased appetite and not eating well., No nausea no episodes of vomiting. EKG on admission showed sinus rhythm with heart rate 62 Chest x-ray showed no focal consolidation. Elevation of the right hemidiaphragm which is increased from prior exam. Consider sniff test to evaluate for diaphragmatic paralysis. Laboratory data showed WBC 26.7 hemoglobin 8.8 and platelets 634 MCV 75.3 Sodium 118, potassium 4.1 chloride 93 bicarb is 10 BUN 52 and creatinine 2.96, blood sugar 103 lactic acid 1.1 phosphorus 5.8 alk phos 241 proBNP 2350 lipase 441 Urinalysis showed light yellow turbid with large blood nitrite positive leukocyte esterase large elevated RBCs and WBCs. Influenza A B RSV and COVID-19 PCR not detected. 02/22/2025 Patient is in the MICU. Patient is requiring pressor support with Levophed. Resting in the bed. Awake alert and oriented. Currently on room air. Afebrile overnight. Denied any complaints of nausea vomiting abdominal pain or diarrhea. Lab data showed WBC trending down to 21.7 hemoglobin 8.2 and platelets 0.91 sodium improved to 121 potassium 4.5 chloride 101 bicarb is 6 BUN 54 and creatinine 2.72. Antibiotics were changed to cefazolin 2 g Q12. Nephrology and ID is on board. 02/24/2024 Patient is needing intensive care unit. Awake alert and oriented x 3. Currently on room air. Patient is off pressor support since 5 AM this morning. Sodium level improved to 127 today. Patient is on antibiotics in the form of cefepime. Urine culture showed Proteus Mirabella's. Laboratory data showed WBC 17.7 hemoglobin 7.4 and platelets 505 sodium 123 potassium 3.6 chloride 98 bicarb is 15 BUN 44 and creatinine 1.98, calcium 8.3. 02/24/2025 Patient is in MICU. Ureteric and ovarian x 3. Currently on room air. No complaints of chest pain or shortness of breath. Sodium level improved to 127 today. Patient is also been antibiotics for urinary tract infection with ceft riaxone. Urine culture growing Proteus mirabilis. Patient has been afebrile. Patient was given urea 15 g p.o. twice daily. Continued on insulin regimen. Laboratory test showed WBC 16.1 hemoglobin 7.3 and platelets 543 sodium 127 potassium 3.8 chloride 98 bicarb is 15 BUN 4020 creatinine 1.35 and blood sugar 82 magnesium 1.7 albumin 2.4. 02/25/2025 Patient is resting in the bed. Awake alert and oriented. No complaints of chest pain or shortness of breath. Tolerating oral diet. Patient is off IV fluids. He was started on urea and patient was also given Samsca. Sodium level is 126 today. Other laboratory data showed sodium 126 potassium 3.9 chloride 97 bicarb is 19 BUN 56 and creatinine 1.06 and blood sugar 125. Magnesium 1.9. Patient is getting ceftriaxone for urinary tract infection. 02/26 Patient lying in bed comfortable no chest pain or dyspnea No vomiting, she has average appetite No abdominal abdominal pain Patient has ongoing dysuria. 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 As per patient she was getting chemotherapy since November 2024. Her oncologist as outpatient is Dr. Botello. She had 3 cycles of chemotherapy so far. Her Cozaar Aldactone and metformin remain on hold 02/27 Clinically looks the same, awake and alert Main complaint is dysuria which is going on for 1.5 months which looks chronic related to her vaginal mass She is following up with hematology/oncology. Also she follow-up with the surgeon at [facility] with no plans for surgical intervention. 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 She has right foot boot on. She says she has fracture on November 26 and she is going to follow-up with her orthopedic in 1 to 2 weeks after discharge. No other new complaints Vital stable and afebrile. 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 Both of these lesions has progressed today She is developing more signs of infection with hypotension, leukocytosis went up to 19.6. Creatinine went up to 1.8, systolic blood pressure dropped from 140s down to 100 but slightly less. Patient thought secondary to have urinary tract infection and she is on ceftriaxone 2 g. Diflucan with loading dose added today. No respiratory symptoms no abdominal pain or diarrhea. No rash. No other source of infection She is also on Cardizem 120 and metoprolol 50 mg for A-fib. Also she is on Eliquis 2.5 mg. Hemoglobin dropped today to 6.6. With no evidence of bleeding. She is getting unit of blood transfusion. Posttransfusion Lasix was held because of borderline low blood pressure. After the blood pressure improved. Also she has CT of the abdomen and pelvis showing generalized lymphadenopathy and around the aorta and retrocaval as well as along the iliac chain Most likely related to her metastatic disease. There is evidence also of hepatic metastasis, hematology/oncology team on the case. Patient was informed with some of the CT findings as above 03/01 Patient is still feeling lethargic. She has large fullness with a bruise in the lower abdomen, she is morbidly obese and she has already pendulous abdomen, the area is standing in her. Possible bleeding. Hold Eliquis and check abdominal u ltrasound She is s/p 1 unit of blood transfusion yesterday, hemoglobin went up 6.6 up to 7.4. She is also on ceftriaxone and Diflucan for suspected UTI She is a known case of malignant melanoma with evidence of metastasis to the abdominal lymphadenopathy and liver. 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 She looks tired and fatigue Hemoglobin stable at 7.6, WBC down to 18,000 creatinine actually went down to 1.6 She is on ceftriaxone Diflucan, Eliquis 2.5 mg scheduled for renal dose and metoprolol 5 mg Patient advised about fluid restriction 03/04 Patient was with several year nausea vomiting yesterday controlled with scopolamine patch and Compazine and she needed another Compazine dose this morning because of vomiting but now controlled because of this we are going to discontinue scopolamine and keep monitoring Also she is hyponatremic 123 yesterday and low urine sodium, they were trying to get her up to the commode yesterday but she was very weak and her legs gave way and she has to be lowered to the ground, blood pressure was soft 90s over 40s. However this morning there is maybe some improvement with her blood pressure in the systolic reading is more than 100. She is feeling little bit stronger. And we checked her orthostatic vitals while lying and sitting up and they were negative. We will check another urine sodium today and serum sodium. And will decide if patient will need more IV bolus or IV fluids. Her Eliquis remains on hold, her lower abdominal hematoma is improving less discoloration and less pain/tenderness discussed with staff 03/05 Patient today feels better she is up in bed and she looks better and more energetic. Patient asking when she will be discharged home Her pain and bruise on the lower abdominal are stable and improving slowly and gradually. Still has vaginal symptoms but today she has less vaginal bleeding for the first time as she explains but has not stopped completely. Blood pressure above 100 which looks stable. Sodium slightly up 123 up to 124 and creatinine 1.6. Leukocyte count is coming down to 16,000 and hemoglobin down to 7.4 from 7.6 She remains on ceftriaxone and Diflucan. Eliquis remains on hold. She is still giving sodium bicarb tablets per nephrology team 03/06 Patient still feels stronger, she was to go home from yesterday Patient denies any other new symptoms. She has ongoing vaginal mass related to her melanoma with evidence of metastasis intra-abdominal the and into the lymph node. She has been treated with antibiotics. She finished her course yesterday we will keep monitoring. Currently she is afebrile. She has chronic leukocytosis. Also her labs are stable low sodium 124, creatinine improved down to 1.52. Hemoglobin is stable at 7.3 Eliquis remains on hold and her intra-abdominal wall hematoma is improving. Possible resume Eliquis upon discharge Sodium also stable creatinine improving, I discussed the case with Dr. Wood who cleared her for discharge today However patient was vomiting despite taking medication therefore we are going to monitor her today. Scopolamine patch and Benadryl was added Possible discharge in 24 to 48 hours if she keeps improved 03/07 Patient was doing well today Had nausea vomiting controlled with Benadryl helped as well She was cleared for discharge by all consultants. After discharge today, patient left on her way to the car she felt generally weak and she fell so she came back, Patient now requesting subacute rehab which is going to be early next week 03/08 Yesterday patient was discharged home. Originally she was evaluated by PT/OT recommended subacute rehab but patient declined Her nausea vomiting controlled and on her way out with her she could not move correctly from a standing position to this vehicle seat so she lost her balance and she has to be lowered to the ground but there is no actual fall with no head trauma or any other part per her body confirmed with her which is at bedside now She still complains from appetite is poor Patient denies vomiting as above no abdominal pain or worsening infection. She tolerates her diet little by little. Ultimately most likely patient will be discharged to rehab on Friday 03/09 Patient came back to the hospital after she discharge and fell on her way leaving the hospital Now she is pending placement to rehab She denies any other new complaint Eliquis was held about a week ago after she developed lower abdominal hematoma. Currently stable recommend to resume her Eliquis starting tomorrow 03/10/2025 Patient is seen and evaluated in follow-up today continuing to have dry heaves and multiple episodes of nausea with vomiting. Patient is taking a number of different antinausea medications with no relief with multiple consultations following including nephrology and oncology. White count remains elevated at 15.4, hemoglobin is 7.3, sodium remains low although stable at 125. Replace electrolytes per protocol. Patient is significantly weak and working on discharge planning possibly to ECF with case management following. Continue PT OT therapy notes. 03/11/2025 Patient is seen in follow-up today continues to have multiple episodes of vomiting with nausea and dry heaving with oncology following with concerns of possible lesion of the brain or metastasis and has ordered MRI of the brain. Patient is on multiple amounts of antinausea medication with no relief. Patient continues with significant weakness and unable to tolerate much diet not eating very well. Sodium continues to be low and was given a dose of Samsca today per nephrology will follow-up on repeat labs. Recommend physical therapy daily for continued strength and mobility. Patient may require ECF on discharge as patient has had prolonged hospitalization with multiple hospitalizations and progressively becoming more weak. Prognosis is guarded at this time. Review of systems: Constitutional: No reports of fatigue, fever, or chills Cardiovascular: No reports of chest pain or palpitations Respiratory: No reports of shortness of breath or cough GI: reports of nausea, with continued dry heaves and vomiting, no bowel movement as of yet : No reports of dysuria or retention Neurovascular: reports of weakness All medications have been reviewed Physical exam: GENERAL: The patient is alert and oriented x3. Well developed, well nourished. Appears older than stated age, ill-appearing, morbidly obese HEENT: Pupils are round and equally reacting to light. EOMI. No scleral icterus. No conjunctival pallor. Normocephalic, atraumatic. No pharyngeal erythema. No thyromegaly. CARDIOVASCULAR: S1 and S2 present. No murmurs, rubs, or gallops. PULMONARY: Diminished breath sounds bilaterally otherwise chest is clear to auscultation, no wheezing , no crackles. ABDOMEN: Soft, obese, nontender, nondistended, normoactive bowel sounds. No palpable organomegaly. MUSCULOSKELETAL: No joint swelling or deformity. EXTREMITIES: No cyanosis, clubbing, or pedal edema. NEUROLOGICAL: Gross neurological examination did not reveal any focal deficits. Diffusely weak SKIN: No rashes. no petechiae. Assessment: Lower abdominal hematoma suspected with severe anemia required unit of blood transfusion on 03/01 Severe hyponatremia with sodium level 118 on admission-hypoosmolar hyponatremia due to decreased oral intake and LISSETTE. Stable at 125 today Acute kidney injury. Possible ATN. SIADH cannot be excluded due to underlying malignancy. Creatinine 2.96 on admission baseline 1.0 Fall outside the hospital with generalized weakness and difficulty ambulating Non-anion gap metabolic acidosis Acute urinary tract infection with Proteus Mirabella's. Mild pancreatitis with lipase level 441, improved Malignant melanoma with mets to liver and lymph nodes, generalized intra- abdominal lymphadenopathy and hepatic metastasis. On chemoinfusion and is on follow-up with oncology. Diabetes type 2 insulin-dependent Diabetic peripheral neuropathy History of SVT Paroxysmal atrial fibrillation Osteoarthritis Hypertension Hyperlipidemia GERD Depression Prior history of smoking Microcytic anemia rule out iron deficiency. Hemoglobin 8.8 on admission morbid obesity with a BMI of 48.8 GI prophylaxis DVT prophylaxis No code Plan: Continue with the current antiemetics and adjust medications as patient continues to have dry heaving and vomiting. Oncology following with concerns of possible lesion or metastasis to the brain and will order MRI of the brain for further evaluation Continue holding Eliquis 2.5 mg, keep monitoring hemoglobin and the hematoma. Hemoglobin is stable above 7 at this time Patient to continue with antibiotic regimen per ID recommendations Monitor sodium level, nephrology following and sodium is 125, nephrology following and has provided Samsca will follow-up on repeat labs. Recommend PT/OT therapy evaluation with case management following and plan is to discharge to possible ECF for continued strength and mobility as patient fell attempting to leave the hospital on last admission and unable to get up. Patient has had frequent hospitalizations with prolonged hospitalization and is significantly weak from continued strength mobility Due to multiple complex medical issues, overall prognosis is extremely guarded The impression and plan of care has been dictated by Roselyn Rod, Nurse Practitioner as directed. Dr. Iris MD I have performed a history and examination and MDM of this patient, discussed the same with the dictator, and agree with the dictator's assessment and plan as written ,documented as a scribe. Based on total visit time, I have performed more than 50% of the visit. Objective - Vital Signs Vital signs: Vital Signs Temp 99.3 F 03/11/25 06:45 Pulse 84 03/11/25 06:45 Resp 17 03/11/25 06:45 BP 102/58 03/11/25 06:51 Pulse Ox 98 03/11/25 06:45 FiO2 Intake & Output 03/10/25 03/11/25 03/11/25 18:59 06:59 18:59 Intake Total 120 Output Total 325 Balance -205 Weight 145.5 kg Intake: Oral 120 Output: Urine 325 Other: Voiding Method External Catheter External Catheter # Bowel Movements 1 - Labs CBC & Chem 7: 03/12/25 03:05 03/12/25 03:05 Labs: Abnormal Lab Results - Last 24 Hours (Table) 03/10/25 03/10/25 03/10/25 Range/Units 11:46 16:48 20:42 WBC (4.50-10.00) X 10*3/uL RBC (4.10-5.20) X 10*6/uL Hgb (12.0-15.0) g/dL Hct (37.2-46.3) % MCH (27.0-32.0) pg MCHC (32.0-37.0) g/dL RDW (11.5-14.5) % Plt Count (140-440) X 10*3/uL Immature Gran # (0.00-0.04) X 10*3/uL Neutrophils # (1.80-7.70) X 10*3/uL Eosinophils # (0.04-0.35) X 10*3/uL NRBC/100 WBC Diff (0.00-0.01) X 10*3/uL Sodium (135-145) mmol/L Chloride (96-109) mmol/L Carbon Dioxide (21.6-31.8) mmol/L Anion Gap (4.00-12.00) mmol/L BUN (9.0-27.0) mg/dL Creatinine (0.6-1.5) mg/dL Est GFR (CKD-EPI) (>=60) BUN/Creatinine Ratio (12.00-20.00) Ratio Glucose (70-110) mg/dL POC Glucose (mg/dL) 175 H 163 H 148 H (70-110) mg/dL Calcium (8.7-10.3) mg/dL 03/11/25 03/11/25 03/11/25 Range/Units 02:37 02:37 06:09 WBC 14.94 H (4.50-10.00) X 10*3/uL RBC 2.75 L (4.10-5.20) X 10*6/uL Hgb 7.3 L (12.0-15.0) g/dL Hct 24.1 L (37.2-46.3) % MCH 26.5 L (27.0-32.0) pg MCHC 30.3 L (32.0-37.0) g/dL RDW 21.0 H (11.5-14.5) % Plt Count 725 H (140-440) X 10*3/uL Immature Gran # 0.47 H (0.00-0.04) X 10*3/uL Neutrophils # 12.38 H (1.80-7.70) X 10*3/uL Eosinophils # 0.47 H (0.04-0.35) X 10*3/uL NRBC/100 WBC Diff 0.02 H (0.00-0.01) X 10*3/uL Sodium 124 L (135-145) mmol/L Chloride 92 L (96-109) mmol/L Carbon Dioxide 18.3 L (21.6-31.8) mmol/L Anion Gap 13.70 H (4.00-12.00) mmol/L BUN 81.2 H (9.0-27.0) mg/dL Creatinine 1.6 H (0.6-1.5) mg/dL Est GFR (CKD-EPI) 37 L (>=60) BUN/Creatinine Ratio 50.75 H (12.00-20.00) Ratio Glucose 140 H (70-110) mg/dL POC Glucose (mg/dL) 168 H (70-110) mg/dL Calcium 8.6 L (8.7-10.3) mg/dL
[2025-03-12] MEDS: NYSTATIN 100,000 UNIT/GM POWD 15 GM TOPICAL SCH (10:54)
[2025-03-12] MEDS: SODIUM CHLORIDE TAB 1 GM TAB PO SCH (10:54)
[2025-03-12] MEDS: SODIUM BICARB 8.4% 50 ML SYR (1 MEQ/ML) IV STA (10:55)
[2025-03-12 11:52] LABS: Glucose,Whole Blood 165 mg/dL (70-110)
--- NOTE | 2025-03-12 15:52 | P.CONS ---
History of Present Illness - Reason for Consult Consult date: 03/12/25 Intractable nausea and vomiting Requesting physician: Jeri Mcfadden - Chief Complaint Generalized weakness - History of Present Illness This a pleasant 55-year-old female with a history of multiple comorbidities including metastatic malignant melanoma with metastasis to the liver and iliac lymphadenopathy as well as appears to the sacrum and coccyx Who follows with Dr. Botello who was admitted 19 days ago with generalized weakness and concerns for infection. Patient was admitted and treated for severe hyponatremia, acute kidney injury, and urinary tract infection. Issues currently on 2 immunotherapies last received 23 days ago. Apparently throughout the hospitalization she has had reportedly intractable vomiting. She is mostly dry heaving, she has decreased appetite and not really eating. Gastroenterology was consulted by oncology and asked if we could do upper endoscopy for direct visualization. Patient also does report some diffuse abdominal pain. No blood in her emesis. Mostly dry heaving. Oncology ordered MRI of the brain to rule out metastasis to the brain which could possibly be causing vomiting. MRI of the brain shows no lesions. Review of Systems REVIEW OF SYSTEMS: CARDIOPULMONARY: No chest pain or shortness of breath. Gastrointestinal: Abdominal pain. Intractable vomiting, mostly dry heaves. Decreased appetite. No hematemesis, coffee-ground emesis. No rectal bleeding, or melena. GENITOURINARY: No dysuria or hematuria. MUSCULOSKELETAL: Back pain. SKIN: No rashes. No jaundice. ENDOCRINE: No chills, fevers. No excessive weight gain or loss. No polydipsia or polyuria. PSYCHIATRIC: Unremarkable. NEUROLOGY: No change in mental status. Denies dizziness, headache. ENT: Vision unremarkable. CONSTITUTIONAL: No recent weight loss. No fever, chills, night sweats. Past Medical History Past Medical History: Cancer, Diabetes Mellitus, GERD/Reflux, Hyperlipidemia, Hypertension, Osteoarthritis (OA) Additional Past Medical History / Comment(s): SVT. ALLERGIES. NEUROPATHY IN FEET. 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 Past Psychological History: Depression Smoking Status: Former smoker Past Alcohol Use History: Occasional Past Drug Use History: None Reported - Past Family History Mother Family Medical History: Cancer, Deep Vein Thrombosis (DVT) Additional Family Medical History / Comment(s): RENAL CA Brother(s) Family Medical History: Deep Vein Thrombosis (DVT) Medications and Allergies Home Medications Medication Instructions Recorded Confirmed Type Metoprolol Succinate (ER) [Toprol 50 mg PO HS 11/22/23 02/21/25 History XL] buPROPion XL [Wellbutrin XL] 150 mg PO DAILY 11/22/23 02/21/25 History dilTIAZem HCL [dilTIAZem HCL 24Hr 120 mg PO HS 11/22/23 02/21/25 History ER (CD)] Gabapentin 600 mg PO BID 12/02/24 02/21/25 History Sertraline [Zoloft] 50 mg PO HS 12/24/24 02/21/25 History Gabapentin [Neurontin] 300 mg PO BID 02/21/25 02/21/25 History Nystatin [Nystop] 1 applic TOPICAL TID PRN 02/21/25 02/21/25 History Rosuvastatin [Crestor] 10 mg PO HS 02/21/25 02/21/25 History Apixaban [Eliquis] 2.5 mg PO BID 30 Days #60 tab 03/07/25 Rx Fenofibrate [Lofibra] 160 mg PO DAILY #30 tab 03/07/25 Rx Insulin Glargine/Lixisenatide 10 units SQ AC-BRKFST #10 ml 03/07/25 Rx [Soliqua 100 Unit-33 Mcg/ml Pen] Midodrine [ProAmatine] 5 mg PO AC-BID #60 tab 03/07/25 Rx Ondansetron [Zofran] 4 mg PO Q8HR PRN #40 tab 03/07/25 Rx Pantoprazole Sodium [Protonix] 40 mg PO DAILY #30 tab 03/07/25 Rx Prochlorperazine [Compazine] 5 mg PO Q6HR PRN #100 tab 03/07/25 Rx Scopolamine 1 mg/72 Hr Patch 1 patch TRANSDERM Q72H #7 patch 03/07/25 Rx [TransDerm Scop] Sodium Bicarbonate Tab 650 mg PO BID #60 tab 03/07/25 Rx diphenhydrAMINE [Benadryl] 50 mg PO TID PRN #90 capsule 03/07/25 Rx Allergies Allergy/AdvReac Type Severity Reaction Status Date / Time benazepril Allergy "throat Verified 02/21/25 15:31 closing" hydrocodone [From Vicodin] AdvReac Nausea & Verified 02/21/25 15:31 Vomiting Physical Exam Vitals: Vital Signs Temp Pulse Resp BP Pulse Ox 03/12/25 07:50 97.7 F 85 16 113/71 99 03/12/25 00:49 97.9 F 93 18 114/70 98 03/11/25 19:06 97.8 F 80 16 103/63 97 03/11/25 14:00 97.6 F 74 17 116/60 99 Intake and Output 03/11/25 03/12/25 03/12/25 22:59 06:59 14:59 Other: Voiding Method Bedpan Bedpan # Voids 4 3 4 # Bowel Movements 3 Weight 142 kg General appearance: The patient is alert, oriented, appears in no acute distress. HET: Head is normocephalic and atraumatic. Conjunctiva pink. Sclera anicteric. Neck: Supple without lymphadenopathy. Trachea midline. Heart: Regular. Lungs: Equal expansion, normal respiratory effort. Abdomen: Soft, morbidly obese, diffuse tenderness, nondistended. Skin: No rashes. No jaundice. Extremities: Normal skin color and turgor. No pedal edema. Neurological: No focal deficits. Alert and oriented x3. Results CBC & Chem 7: 03/12/25 03:05 03/12/25 03:05 Labs: Abnormal Lab Results - Last 24 Hours (Table) 03/11/25 03/11/25 03/12/25 Range/Units 17:15 20:23 03:05 WBC (4.50-10.00) X 10*3/uL RBC (4.10-5.20) X 10*6/uL Hgb (12.0-15.0) g/dL Hct (37.2-46.3) % MCH (27.0-32.0) pg MCHC (32.0-37.0) g/dL RDW (11.5-14.5) % Plt Count (140-440) X 10*3/uL Immature Gran # (0.00-0.04) X 10*3/uL Neutrophils # (1.80-7.70) X 10*3/uL Lymphocytes # (0.90-5.00) X 10*3/uL Eosinophils # (0.04-0.35) X 10*3/uL Sodium 125 L (135-145) mmol/L Chloride 94 L (96-109) mmol/L Carbon Dioxide 17.2 L (21.6-31.8) mmol/L Anion Gap 13.80 H (4.00-12.00) mmol/L BUN 74.8 H (9.0-27.0) mg/dL Est GFR (CKD-EPI) 40 L (>=60) BUN/Creatinine Ratio 49.87 H (12.00-20.00) Ratio Glucose 132 H (70-110) mg/dL POC Glucose (mg/dL) 148 H 226 H (70-110) mg/dL Calcium 8.5 L (8.7-10.3) mg/dL 03/12/25 03/12/25 03/12/25 Range/Units 03:05 06:07 11:50 WBC 14.60 H (4.50-10.00) X 10*3/uL RBC 2.70 L (4.10-5.20) X 10*6/uL Hgb 7.1 L (12.0-15.0) g/dL Hct 23.3 L (37.2-46.3) % MCH 26.3 L (27.0-32.0) pg MCHC 30.5 L (32.0-37.0) g/dL RDW 21.1 H (11.5-14.5) % Plt Count 691 H (140-440) X 10*3/uL Immature Gran # 0.31 H (0.00-0.04) X 10*3/uL Neutrophils # 12.39 H (1.80-7.70) X 10*3/uL Lymphocytes # 0.86 L (0.90-5.00) X 10*3/uL Eosinophils # 0.41 H (0.04-0.35) X 10*3/uL Sodium (135-145) mmol/L Chloride (96-109) mmol/L Carbon Dioxide (21.6-31.8) mmol/L Anion Gap (4.00-12.00) mmol/L BUN (9.0-27.0) mg/dL Est GFR (CKD-EPI) (>=60) BUN/Creatinine Ratio (12.00-20.00) Ratio Glucose (70-110) mg/dL POC Glucose (mg/dL) 164 H 165 H (70-110) mg/dL Calcium (8.7-10.3) mg/dL Assessment and Plan (1) Intractable vomiting Narrative/Plan: 55-year-old female diagnosed with metastatic melanoma on immunotherapy hospitalized for last 19 days and treated for urinary tract infection, severe hyponatremia and acute kidney injury which have been improving however patient has had increased intractable vomiting with dry heaves. Decreased appetite eat ing very little and patient's oncologist concerned with ongoing vomiting asking for direct visualization with upper endoscopy. Will plan for upper endoscopy tomorrow, patient is agreeable to proceed with procedure. Current Visit: Yes Status: Acute Code(s): R11.10 - VOMITING, UNSPECIFIED SNOMED Code(s): 753403209 (2) LISSETTE (acute kidney injury) Current Visit: Yes Status: Acute Code(s): N17.9 - ACUTE KIDNEY FAILURE, UNSPECIFIED SNOMED Code(s): 69966583 (3) Metastatic melanoma to liver Current Visit: Yes Status: Acute Code(s): C78.7 - SECONDARY MALIG NEOPLASM OF LIVER AND INTRAHEPATIC BILE DUCT SNOMED Code(s): 933634245 (4) UTI (urinary tract infection) Current Visit: Yes Status: Acute Code(s): N39.0 - URINARY TRACT INFECTION, SITE NOT SPECIFIED SNOMED Code(s): 11281895 Plan: 1. N.p.o. after midnight 2. Continue with antiemetics 3. Continue with Protonix 40 mg twice daily 4. Will plan for upper endoscopy tomorrow 5. Continue with recommendations from multiple consultants Thank you for this consultation, we will continue to follow. Dr. Isma Bradley I agree with the dictator's note, documented as a scribe by Ann Norton.
--- NOTE | 2025-03-12 16:25 | P.PN ---
Subjective Progress Note Date: 03/12/25 Principal diagnosis: UTI, LISSETTE. Metastatic melanoma Today pt cont to have dry heaves and vomiting, MRI of the brain was neg. Pt cont to feel overall terrible Objective - Vital Signs Vital signs: Vital Signs Temp 97.8 F 03/12/25 14:00 Pulse 84 03/12/25 14:00 Resp 16 03/12/25 14:00 BP 106/74 03/12/25 14:00 Pulse Ox 98 03/12/25 14:00 FiO2 Intake & Output 03/11/25 03/12/25 03/12/25 18:59 06:59 18:59 Output Total 300 Balance -300 Weight 145.5 kg 142 kg Output: Urine 300 Other: Voiding Method External Catheter Bedpan Bedpan # Voids 4 3 4 # Bowel Movements 3 - Constitutional General appearance: Present: cooperative, morbidly obese, no acute distress - EENT Eyes: Present: anicteric sclerae, EOMI ENT: Present: hearing grossly normal - Respiratory Details: resp unlabored at rest - Cardiovascular Details: skin warm and dry to touch - Peripheral edema leg Peripheral Edema: bilateral: 1+ - Integumentary Integumentary Comment(s): large right inguinal lesion Integumentary: Present: pale - Neurologic Neurologic: Present: CNII-XII intact (grossly) - Musculoskeletal Musculoskeletal: Present: generalized weakness - Psychiatric Psychiatric: Present: A&O x's 3, appropriate affect - Labs CBC & Chem 7: 03/12/25 03:05 03/12/25 03:05 Labs: Abnormal Lab Results - Last 24 Hours (Table) 03/11/25 03/11/25 03/12/25 Range/Units 17:15 20:23 03:05 WBC (4.50-10.00) X 10*3/uL RBC (4.10-5.20) X 10*6/uL Hgb (12.0-15.0) g/dL Hct (37.2-46.3) % MCH (27.0-32.0) pg MCHC (32.0-37.0) g/dL RDW (11.5-14.5) % Plt Count (140-440) X 10*3/uL Immature Gran # (0.00-0.04) X 10*3/uL Neutrophils # (1.80-7.70) X 10*3/uL Lymphocytes # (0.90-5.00) X 10*3/uL Eosinophils # (0.04-0.35) X 10*3/uL Sodium 125 L (135-145) mmol/L Chloride 94 L (96-109) mmol/L Carbon Dioxide 17.2 L (21.6-31.8) mmol/L Anion Gap 13.80 H (4.00-12.00) mmol/L BUN 74.8 H (9.0-27.0) mg/dL Est GFR (CKD-EPI) 40 L (>=60) BUN/Creatinine Ratio 49.87 H (12.00-20.00) Ratio Glucose 132 H (70-110) mg/dL POC Glucose (mg/dL) 148 H 226 H (70-110) mg/dL Calcium 8.5 L (8.7-10.3) mg/dL 03/12/25 03/12/25 03/12/25 Range/Units 03:05 06:07 11:50 WBC 14.60 H (4.50-10.00) X 10*3/uL RBC 2.70 L (4.10-5.20) X 10*6/uL Hgb 7.1 L (12.0-15.0) g/dL Hct 23.3 L (37.2-46.3) % MCH 26.3 L (27.0-32.0) pg MCHC 30.5 L (32.0-37.0) g/dL RDW 21.1 H (11.5-14.5) % Plt Count 691 H (140-440) X 10*3/uL Immature Gran # 0.31 H (0.00-0.04) X 10*3/uL Neutrophils # 12.39 H (1.80-7.70) X 10*3/uL Lymphocytes # 0.86 L (0.90-5.00) X 10*3/uL Eosinophils # 0.41 H (0.04-0.35) X 10*3/uL Sodium (135-145) mmol/L Chloride (96-109) mmol/L Carbon Dioxide (21.6-31.8) mmol/L Anion Gap (4.00-12.00) mmol/L BUN (9.0-27.0) mg/dL Est GFR (CKD-EPI) (>=60) BUN/Creatinine Ratio (12.00-20.00) Ratio Glucose (70-110) mg/dL POC Glucose (mg/dL) 164 H 165 H (70-110) mg/dL Calcium (8.7-10.3) mg/dL - Imaging and Cardiology MRI - head: report reviewed Assessment and Plan (1) LISSETTE (acute kidney injury) Current Visit: Yes Status: Acute Priority: High Code(s): N17.9 - ACUTE KIDNEY FAILURE, UNSPECIFIED SNOMED Code(s): 12373114 (2) Hematoma Current Visit: Yes Status: Acute Priority: Medium Code(s): T14.8XXA - OTHER INJURY OF UNSPECIFIED BODY REGION, INITIAL ENCOUNTER SNOMED Code(s): 735755638 (3) Melanoma Current Visit: Yes Status: Acute Priority: High Code(s): C43.9 - MALIGNANT MELANOMA OF SKIN, UNSPECIFIED SNOMED Code(s): 707295820 Plan: Septic shock secondary to UTI -Improved with treatment of the same -ID following -Repeat urine and blood cultures due to leukocytosis on 02/27/2025 were negative -Leukocytosis stable Hyponatremia -Nephrology following. -Sodium stable at 125. BUN and creatinine stable Hematoma -CT AP/ reporting massive lymphadenopathy in the inguinal lymph nodes. Subcutaneous increased density present at the level of the iliac wings both medially and laterally. Nonspecific, possibly edema or contusions -Ultrasound 03/01/2025 showing fluid collection 5.3 x 5.1 x 1.3 cm. [place] to be a hematoma. -Hemoglobin has remained stable, in the 7 range since transfusions on 02/28 and 03/01 for hemoglobin in the 6 range. -Eliquis was resumed but discontinued for persistent hematuria -Hgb has remained stable N/V -Persistent despite multiple medications adjustments -Pt agreed to MRI of the brain to rule out brain mets as an underlying cause. MRI results reviewed-no evidence for malignancy -We discussed previously that if the MRI was neg may have to consider EGD to see if there is something going on in the esophagus or stomach. Discussed case with GI COMMUTATOR REPAIRER. GI will assess pt, possible upper endo in the next few days Metastatic melanoma - Received 3 cycles of Opdualag, last dose on 02/17/2025 - CT AP reported known metastases to the liver and abdominal/iliac lymphadenopathy. This scan was also compared to scans obtained in November 2023. She had a PET CT prior to initiation of treatment that was performed at [facility] [place] and was not used for comparison. Requesting report, not sure if we will be able to get a disc.
[2025-03-12 17:04] LABS: Glucose,Whole Blood 155 mg/dL (70-110)
[2025-03-12 20:04] LABS: Glucose,Whole Blood 148 mg/dL (70-110)
--- NOTE | 2025-03-13 06:08 | P.PN ---
Subjective Progress Note Date: 03/12/25 Patient is a 55-year-old female with a past medical history of hypertension, hyperlipidemia, diabetes type 2 insulin-dependent, metastatic malignant melanoma with mets to liver and lymph nodes, depression, prior history of smoking, GERD and diabetic peripheral neuropathy and history of SVT, prior history of smoking. Patient presents to ER from Dr. Botello's office due to abnormal labs. Patient was also having generalized weakness. She was in the office for her third infusion. She had blood workup done yesterday which showed multiple abnormalities and was recommended to go to ER. She is also having generalized body pains. Also worsening shortness of breath. No chest pain. She does have decreased appetite and not eating well., No nausea no episodes of vomiting. EKG on admission showed sinus rhythm with heart rate 62 Chest x-ray showed no focal consolidation. Elevation of the right hemidiaphragm which is increased from prior exam. Consider sniff test to evaluate for diaphragmatic paralysis. Laboratory data showed WBC 26.7 hemoglobin 8.8 and platelets 634 MCV 75.3 Sodium 118, potassium 4.1 chloride 93 bicarb is 10 BUN 52 and creatinine 2.96, blood sugar 103 lactic acid 1.1 phosphorus 5.8 alk phos 241 proBNP 2350 lipase 441 Urinalysis showed light yellow turbid with large blood nitrite positive leukocyte esterase large elevated RBCs and WBCs. Influenza A B RSV and COVID-19 PCR not detected. 02/22/2025 Patient is in the MICU. Patient is requiring pressor support with Levophed. Resting in the bed. Awake alert and oriented. Currently on room air. Afebrile overnight. Denied any complaints of nausea vomiting abdominal pain or diarrhea. Lab data showed WBC trending down to 21.7 hemoglobin 8.2 and platelets 0.91 sodium improved to 121 potassium 4.5 chloride 101 bicarb is 6 BUN 54 and creatinine 2.72. Antibiotics were changed to cefazolin 2 g Q12. Nephrology and ID is on board. 02/24/2024 Patient is needing intensive care unit. Awake alert and oriented x 3. Currently on room air. Patient is off pressor support since 5 AM this morning. Sodium level improved to 127 today. Patient is on antibiotics in the form of cefepime. Urine culture showed Proteus Mirabella's. Laboratory data showed WBC 17.7 hemoglobin 7.4 and platelets 505 sodium 123 potassium 3.6 chloride 98 bicarb is 15 BUN 44 and creatinine 1.98, calcium 8.3. 02/24/2025 Patient is in MICU. Ureteric and ovarian x 3. Currently on room air. No complaints of chest pain or shortness of breath. Sodium level improved to 127 today. Patient is also been antibiotics for urinary tract infection with ceft riaxone. Urine culture growing Proteus mirabilis. Patient has been afebrile. Patient was given urea 15 g p.o. twice daily. Continued on insulin regimen. Laboratory test showed WBC 16.1 hemoglobin 7.3 and platelets 543 sodium 127 potassium 3.8 chloride 98 bicarb is 15 BUN 4020 creatinine 1.35 and blood sugar 82 magnesium 1.7 albumin 2.4. 02/25/2025 Patient is resting in the bed. Awake alert and oriented. No complaints of chest pain or shortness of breath. Tolerating oral diet. Patient is off IV fluids. He was started on urea and patient was also given Samsca. Sodium level is 126 today. Other laboratory data showed sodium 126 potassium 3.9 chloride 97 bicarb is 19 BUN 56 and creatinine 1.06 and blood sugar 125. Magnesium 1.9. Patient is getting ceftriaxone for urinary tract infection. 02/26 Patient lying in bed comfortable no chest pain or dyspnea No vomiting, she has average appetite No abdominal abdominal pain Patient has ongoing dysuria. 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 As per patient she was getting chemotherapy since November 2024. Her oncologist as outpatient is Dr. Botello. She had 3 cycles of chemotherapy so far. Her Cozaar Aldactone and metformin remain on hold 02/27 Clinically looks the same, awake and alert Main complaint is dysuria which is going on for 1.5 months which looks chronic related to her vaginal mass She is following up with hematology/oncology. Also she follow-up with the surgeon at [facility] with no plans for surgical intervention. Also patient confirms to me that she follow-up with [facility] in [place]. She has right foot boot on. She says she has fracture on November 26 and she is going to follow-up with her orthopedic in 1 to 2 weeks after discharge. No other new complaints Vital stable and afebrile. 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 Both of these lesions has progressed today She is developing more signs of infection with hypotension, leukocytosis went up to 19.6. Creatinine went up to 1.8, systolic blood pressure dropped from 140s down to 100 but slightly less. Patient thought secondary to have urinary tract infection and she is on ceftriaxone 2 g. Diflucan with loading dose added today. No respiratory symptoms no abdominal pain or diarrhea. No rash. No other source of infection She is also on Cardizem 120 and metoprolol 50 mg for A-fib. Also she is on Eliquis 2.5 mg. Hemoglobin dropped today to 6.6. With no evidence of bleeding. She is getting unit of blood transfusion. Posttransfusion Lasix was held because of borderline low blood pressure. After the blood pressure improved. Also she has CT of the abdomen and pelvis showing generalized lymphadenopathy and around the aorta and retrocaval as well as along the iliac chain Most likely related to her metastatic disease. There is evidence also of hepatic metastasis, hematology/oncology team on the case. Patient was informed with some of the CT findings as above 03/01 Patient is still feeling lethargic. She has large fullness with a bruise in the lower abdomen, she is morbidly obese and she has already pendulous abdomen, the area is standing in her. Possible bleeding. Hold Eliquis and check abdominal u ltrasound She is s/p 1 unit of blood transfusion yesterday, hemoglobin went up 6.6 up to 7.4. She is also on ceftriaxone and Diflucan for suspected UTI She is a known case of malignant melanoma with evidence of metastasis to the abdominal lymphadenopathy and liver. 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 She looks tired and fatigue Hemoglobin stable at 7.6, WBC down to 18,000 creatinine actually went down to 1.6 She is on ceftriaxone Diflucan, Eliquis 2.5 mg scheduled for renal dose and metoprolol 5 mg Patient advised about fluid restriction 03/04 Patient was with several year nausea vomiting yesterday controlled with scopolamine patch and Compazine and she needed another Compazine dose this morning because of vomiting but now controlled because of this we are going to discontinue scopolamine and keep monitoring Also she is hyponatremic 123 yesterday and low urine sodium, they were trying to get her up to the commode yesterday but she was very weak and her legs gave way and she has to be lowered to the ground, blood pressure was soft 90s over 40s. However this morning there is maybe some improvement with her blood pressure in the systolic reading is more than 100. She is feeling little bit stronger. And we checked her orthostatic vitals while lying and sitting up and they were negative. We will check another urine sodium today and serum sodium. And will decide if patient will need more IV bolus or IV fluids. Her Eliquis remains on hold, her lower abdominal hematoma is improving less discoloration and less pain/tenderness discussed with staff 03/05 Patient today feels better she is up in bed and she looks better and more energetic. Patient asking when she will be discharged home Her pain and bruise on the lower abdominal are stable and improving slowly and gradually. Still has vaginal symptoms but today she has less vaginal bleeding for the first time as she explains but has not stopped completely. Blood pressure above 100 which looks stable. Sodium slightly up 123 up to 124 and creatinine 1.6. Leukocyte count is coming down to 16,000 and hemoglobin down to 7.4 from 7.6 She remains on ceftriaxone and Diflucan. Eliquis remains on hold. She is still giving sodium bicarb tablets per nephrology team 03/06 Patient still feels stronger, she was to go home from yesterday Patient denies any other new symptoms. She has ongoing vaginal mass related to her melanoma with evidence of metastasis intra-abdominal the and into the lymph node. She has been treated with antibiotics. She finished her course yesterday we will keep monitoring. Currently she is afebrile. She has chronic leukocytosis. Also her labs are stable low sodium 124, creatinine improved down to 1.52. Hemoglobin is stable at 7.3 Eliquis remains on hold and her intra-abdominal wall hematoma is improving. Possible resume Eliquis upon discharge Sodium also stable creatinine improving, I discussed the case with Dr. Wood who cleared her for discharge today However patient was vomiting despite taking medication therefore we are going to monitor her today. Scopolamine patch and Benadryl was added Possible discharge in 24 to 48 hours if she keeps improved 03/07 Patient was doing well today Had nausea vomiting controlled with Benadryl helped as well She was cleared for discharge by all consultants. After discharge today, patient left on her way to the car she felt generally weak and she fell so she came back, Patient now requesting subacute rehab which is going to be early next week 03/08 Yesterday patient was discharged home. Originally she was evaluated by PT/OT recommended subacute rehab but patient declined Her nausea vomiting controlled and on her way out with her she could not move correctly from a standing position to this vehicle seat so she lost her balance and she has to be lowered to the ground but there is no actual fall with no head trauma or any other part per her body confirmed with her which is at bedside now She still complains from appetite is poor Patient denies vomiting as above no abdominal pain or worsening infection. She tolerates her diet little by little. Ultimately most likely patient will be discharged to rehab on Friday 03/09 Patient came back to the hospital after she discharge and fell on her way leaving the hospital Now she is pending placement to rehab She denies any other new complaint Eliquis was held about a week ago after she developed lower abdominal hematoma. Currently stable recommend to resume her Eliquis starting tomorrow 03/10/2025 Patient is seen and evaluated in follow-up today continuing to have dry heaves and multiple episodes of nausea with vomiting. Patient is taking a number of different antinausea medications with no relief with multiple consultations following including nephrology and oncology. White count remains elevated at 15.4, hemoglobin is 7.3, sodium remains low although stable at 125. Replace electrolytes per protocol. Patient is significantly weak and working on discharge planning possibly to ECF with case management following. Continue PT OT therapy notes. 03/11/2025 Patient is seen in follow-up today continues to have multiple episodes of vomiting with nausea and dry heaving with oncology following with concerns of possible lesion of the brain or metastasis and has ordered MRI of the brain. Patient is on multiple amounts of antinausea medication with no relief. Patient continues with significant weakness and unable to tolerate much diet not eating very well. Sodium continues to be low and was given a dose of Samsca today per nephrology will follow-up on repeat labs. Recommend physical therapy daily for continued strength and mobility. Patient may require ECF on discharge as patient has had prolonged hospitalization with multiple hospitalizations and progressively becoming more weak. Prognosis is guarded at this time. 03/12/2025 Patient is seen in follow-up this morning more awake today underwent MRI of the brain yesterday with no suggestions of lesions or metastatic disease noted. Patient continues to have continuous nausea with dry heaving and vomiting noted. Referral was placed to GI and appreciate input and recommendations. Possible endoscopy intervention being planned. Patient reports she was able to have a bowel movement today although unsure on exact consistency and if there was blood noted. Hemoglobin is 7.1 today. Recommend to continue monitoring closely. Review of systems: Constitutional: No reports of fatigue, fever, or chills Cardiovascular: No reports of chest pain or palpitations Respiratory: No reports of shortness of breath or cough GI: reports of nausea, with continued dry heaves and vomiting, reports had a bowel movement today : No reports of dysuria or retention Neurovascular: reports of weakness All medications have been reviewed Physical exam: GENERAL: The patient is alert and oriented x3. Well developed, well nourished. Appears older than stated age, ill-appearing, morbidly obese HEENT: Pupils are round and equally reacting to light. EOMI. No scleral icterus. No conjunctival pallor. Normocephalic, atraumatic. No pharyngeal erythema. No thyromegaly. CARDIOVASCULAR: S1 and S2 present. No murmurs, rubs, or gallops. PULMONARY: Diminished breath sounds bilaterally otherwise chest is clear to auscultation, no wheezing , no crackles. ABDOMEN: Soft, obese, nontender, nondistended, normoactive bowel sounds. No palpable organomegaly. MUSCULOSKELETAL: No joint swelling or deformity. EXTREMITIES: No cyanosis, clubbing, or pedal edema. NEUROLOGICAL: Gross neurological examination did not reveal any focal deficits. Diffusely weak SKIN: No rashes. no petechiae. Assessment: Lower abdominal hematoma suspected with severe anemia required unit of blood transfusion on 03/01 Severe hyponatremia with sodium level 118 on admission-hypoosmolar hyponatremia due to decreased oral intake and LISSETTE. Stable at 125 today with no changes status post Samsca administration Acute kidney injury. Possible ATN. SIADH cannot be excluded due to underlying malignancy. Creatinine 2.96 on admission baseline 1.0 Fall outside the hospital with generalized weakness and difficulty ambulating Non-anion gap metabolic acidosis Acute urinary tract infection with Proteus Mirabella's. Mild pancreatitis with lipase level 441, improved Malignant melanoma with mets to liver and lymph nodes, generalized intra- abdominal lymphadenopathy and hepatic metastasis. On chemoinfusion and is on follow-up with oncology. Diabetes type 2 insulin-dependent Diabetic peripheral neuropathy History of SVT Paroxysmal atrial fibrillation Osteoarthritis Hypertension Hyperlipidemia GERD Depression Prior history of smoking Microcytic anemia rule out iron deficiency. Hemoglobin 8.8 on admission morbid obesity with a BMI of 48.8 GI prophylaxis DVT prophylaxis No code Plan: Continue with the current antiemetics and adjust medications as patient continues to have dry heaving and vomiting. Oncology following with concerns of possible lesion or metastasis to the brain and underwent MRI of the brain which was negative GI consulted and appreciate input and recommendations. Endoscopy is being planned Patient was able to have a bowel movement today 05/25/2025 and recommend to continue with scheduled bowel regimen Continue holding Eliquis 2.5 mg, keep monitoring hemoglobin and the hematoma. Hemoglobin is stable above 7 at this time Patient to continue with antibiotic regimen per ID recommendations Monitor sodium level, nephrology following and sodium is 125, nephrology following and has provided Samsca and sodium remains 125. Recommend PT/OT therapy evaluation with case management following and plan is to discharge to possible ECF for continued strength and mobility as patient fell attempting to leave the hospital on last admission and unable to get up. Patient has had frequent hospitalizations with prolonged hospitalization and is significantly weak from continued strength mobility Due to multiple complex medical issues, overall prognosis is extremely guarded The impression and plan of care has been dictated by Roselyn Rod, Nurse Practitioner as directed. Dr. Iris MD I have performed a history and examination and MDM of this patient, discussed the same with the dictator, and agree with the dictator's assessment and plan as written ,documented as a scribe. Based on total visit time, I have performed more than 50% of the visit. Objective - Vital Signs Vital signs: Vital Signs Temp 97.7 F 05/07/25 07:50 Pulse 85 03/12/25 07:50 Resp 16 03/12/25 07:50 BP 113/71 03/12/25 07:50 Pulse Ox 99 03/12/25 07:50 FiO2 Intake & Output 03/11/25 03/12/25 03/12/25 18:59 06:59 18:59 Output Total 300 Balance -300 Weight 145.5 kg 142 kg Output: Urine 300 Other: Voiding Method External Catheter Bedpan Bedpan # Voids 4 3 2 # Bowel Movements 1 - Labs CBC & Chem 7: 03/12/25 03:05 03/12/25 03:05 Labs: Abnormal Lab Results - Last 24 Hours (Table) 03/11/25 03/11/25 03/11/25 Range/Units 11:47 17:15 20:23 WBC (4.50-10.00) X 10*3/uL RBC (4.10-5.20) X 10*6/uL Hgb (12.0-15.0) g/dL Hct (37.2-46.3) % MCH (27.0-32.0) pg MCHC (32.0-37.0) g/dL RDW (11.5-14.5) % Plt Count (140-440) X 10*3/uL Immature Gran # (0.00-0.04) X 10*3/uL Neutrophils # (1.80-7.70) X 10*3/uL Lymphocytes # (0.90-5.00) X 10*3/uL Eosinophils # (0.04-0.35) X 10*3/uL Sodium (135-145) mmol/L Chloride (96-109) mmol/L Carbon Dioxide (21.6-31.8) mmol/L Anion Gap (4.00-12.00) mmol/L BUN (9.0-27.0) mg/dL Est GFR (CKD-EPI) (>=60) BUN/Creatinine Ratio (12.00-20.00) Ratio Glucose (70-110) mg/dL POC Glucose (mg/dL) 150 H 148 H 226 H (70-110) mg/dL Calcium (8.7-10.3) mg/dL 03/12/25 03/12/25 03/12/25 Range/Units 03:05 03:05 06:07 WBC 14.60 H (4.50-10.00) X 10*3/uL RBC 2.70 L (4.10-5.20) X 10*6/uL Hgb 7.1 L (12.0-15.0) g/dL Hct 23.3 L (37.2-46.3) % MCH 26.3 L (27.0-32.0) pg MCHC 30.5 L (32.0-37.0) g/dL RDW 21.1 H (11.5-14.5) % Plt Count 691 H (140-440) X 10*3/uL Immature Gran # 0.31 H (0.00-0.04) X 10*3/uL Neutrophils # 12.39 H (1.80-7.70) X 10*3/uL Lymphocytes # 0.86 L (0.90-5.00) X 10*3/uL Eosinophils # 0.41 H (0.04-0.35) X 10*3/uL Sodium 125 L (135-145) mmol/L Chloride 94 L (96-109) mmol/L Carbon Dioxide 17.2 L (21.6-31.8) mmol/L Anion Gap 13.80 H (4.00-12.00) mmol/L BUN 74.8 H (9.0-27.0) mg/dL Est GFR (CKD-EPI) 40 L (>=60) BUN/Creatinine Ratio 49.87 H (12.00-20.00) Ratio Glucose 132 H (70-110) mg/dL POC Glucose (mg/dL) 164 H (70-110) mg/dL Calcium 8.5 L (8.7-10.3) mg/dL
[2025-03-13 06:16] LABS: Glucose,Whole Blood 157 mg/dL (70-110)
[2025-03-13 08:59] LABS: BUN/Creat Ratio 42.94 Ratio (12.00-20.00); Blood Urea Nitrogen 68.7 mg/dL (9.0-27.0); Calcium 8.4 mg/dL (8.7-10.3); Carbon Dioxide 19.2 mmol/L (21.6-31.8); Chloride 91 mmol/L (96-109); Glucose 141 mg/dL (70-110); Potassium 4.8 mmol/L (3.5-5.5); Sodium 123 mmol/L (135-145)
[2025-03-13] MEDS ORDERED: TOLVAPTAN 15 MG TABLET PO ONE (10:27)
--- NOTE | 2025-03-13 10:28 | P.PN ---
Subjective Patient is seen in follow-up for acute kidney injury and hyponatremia. Sodium level 123 today. Oral intake remains poor. Still having dry heaves. Upper GI pending. Vital signs are stable. General: No acute distress. HEENT: Head exam is unremarkable. LUNGS: No audible rhonchi or wheezes. HEART: Rate and Rhythm are regular. ABDOMEN: Nontender. EXTREMITITES: 1+ edema right lower extremity. Objective - Vital Signs Vital signs: Vital Signs Temp 97.5 F L 03/13/25 08:00 Pulse 74 03/13/25 08:00 Resp 16 03/13/25 08:00 BP 96/61 03/13/25 08:00 Pulse Ox 95 03/13/25 08:00 FiO2 Intake & Output 03/12/25 03/13/25 03/13/25 18:59 06:59 18:59 Intake Total 200 500 Balance 200 500 Weight 170.5 kg Intake: Oral 200 500 Other: Voiding Method Bedpan Bedpan # Voids 3 3 # Bowel Movements 3 - Labs CBC & Chem 7: 03/12/25 03:05 03/13/25 04:59 Labs: Abnormal Lab Results - Last 24 Hours (Table) 03/12/25 03/12/25 03/12/25 Range/Units 11:50 17:02 20:03 Sodium (135-145) mmol/L Chloride (96-109) mmol/L Carbon Dioxide (21.6-31.8) mmol/L Anion Gap (4.00-12.00) mmol/L BUN (9.0-27.0) mg/dL Creatinine (0.6-1.5) mg/dL Est GFR (CKD-EPI) (>=60) BUN/Creatinine Ratio (12.00-20.00) Ratio Glucose (70-110) mg/dL POC Glucose (mg/dL) 165 H 155 H 148 H (70-110) mg/dL Calcium (8.7-10.3) mg/dL 03/13/25 03/13/25 Range/Units 04:59 06:15 Sodium 123 L (135-145) mmol/L Chloride 91 L (96-109) mmol/L Carbon Dioxide 19.2 L (21.6-31.8) mmol/L Anion Gap 12.80 H (4.00-12.00) mmol/L BUN 68.7 H (9.0-27.0) mg/dL Creatinine 1.6 H (0.6-1.5) mg/dL Est GFR (CKD-EPI) 37 L (>=60) BUN/Creatinine Ratio 42.94 H (12.00-20.00) Ratio Glucose 141 H (70-110) mg/dL POC Glucose (mg/dL) 157 H (70-110) mg/dL Calcium 8.4 L (8.7-10.3) mg/dL Assessment and Plan Plan: Assessment: 1. 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 Also on Wellbutrin. Urine osmolality 252. Sodium 123. Cortisol level high. TSH normal. Urine osmolality 252. 2. Malignant melanoma with metastatic disease to liver and lymph nodes. 3. Acute kidney injury secondary to ATN secondary to severe sepsis. Baseline c reatinine near 1 from December 2024. Creatinine 2.96 on admission and improved to 1.06 - now stable near 1.5-1.6. 4. UTI status post antibiotics. Urine culture positive for Proteus. 5. Metabolic acidosis secondary to acute kidney injury and IV fluids. Was also on metformin. On oral bicarb. 6. Diabetes mellitus. 7. Anemia secondary to acute blood loss. Iron deficiency noted. s/p IV iron and blood transfusion this admission. Hematology following. Plan: Encourage oral intake. Maintain sodium chloride tabs. Upper GI pending. Repeat Samsca today. Maintain fluid restriction. Zofran as needed.
[2025-03-13 11:06] LABS: INR 1.1 sec (0.93-1.11); Prothrombin Time 12.4 sec (9.9-11.9)
--- NOTE | 2025-03-13 11:26 | P.PN ---
Subjective Progress Note Date: 03/13/25 Principal diagnosis: UTI, LISSETTE. Metastatic melanoma Today pt cont to have dry heaves and vomiting, MRI of the brain was neg. Pending EGD evaluation today. Objective - Vital Signs Vital signs: Vital Signs Temp 97.5 F L 03/13/25 08:00 Pulse 74 03/13/25 08:00 Resp 16 03/13/25 08:00 BP 96/61 03/13/25 08:00 Pulse Ox 95 03/13/25 08:00 FiO2 Intake & Output 03/12/25 03/13/25 03/13/25 18:59 06:59 18:59 Intake Total 200 500 Balance 200 500 Weight 170.5 kg Intake: Oral 200 500 Other: Voiding Method Bedpan Bedpan # Voids 3 3 # Bowel Movements 3 - Constitutional General appearance: Present: cooperative, mild distress, morbidly obese - EENT Eyes: Present: anicteric sclerae, EOMI ENT: Present: hearing grossly normal - Respiratory Details: resp unlabored at rest - Cardiovascular Details: skin warm, well perfused - Neurologic Neurologic: Present: CNII-XII intact - Musculoskeletal Musculoskeletal: Present: generalized weakness - Psychiatric Psychiatric: Present: A&O x's 3, appropriate affect, intact judgment & insight - Labs CBC & Chem 7: 03/12/25 03:05 03/13/25 04:59 Labs: Abnormal Lab Results - Last 24 Hours (Table) 03/12/25 03/12/25 03/12/25 Range/Units 11:50 17:02 20:03 PT (9.9-11.9) sec Sodium (135-145) mmol/L Chloride (96-109) mmol/L Carbon Dioxide (21.6-31.8) mmol/L Anion Gap (4.00-12.00) mmol/L BUN (9.0-27.0) mg/dL Creatinine (0.6-1.5) mg/dL Est GFR (CKD-EPI) (>=60) BUN/Creatinine Ratio (12.00-20.00) Ratio Glucose (70-110) mg/dL POC Glucose (mg/dL) 165 H 155 H 148 H (70-110) mg/dL Calcium (8.7-10.3) mg/dL 03/13/25 03/13/25 03/13/25 Range/Units 04:59 04:59 06:15 PT 12.4 H (9.9-11.9) sec Sodium 123 L (135-145) mmol/L Chloride 91 L (96-109) mmol/L Carbon Dioxide 19.2 L (21.6-31.8) mmol/L Anion Gap 12.80 H (4.00-12.00) mmol/L BUN 68.7 H (9.0-27.0) mg/dL Creatinine 1.6 H (0.6-1.5) mg/dL Est GFR (CKD-EPI) 37 L (>=60) BUN/Creatinine Ratio 42.94 H (12.00-20.00) Ratio Glucose 141 H (70-110) mg/dL POC Glucose (mg/dL) 157 H (70-110) mg/dL Calcium 8.4 L (8.7-10.3) mg/dL Assessment and Plan (1) LISSETTE (acute kidney injury) Current Visit: Yes Status: Acute Priority: High Code(s): N17.9 - ACUTE KIDNEY FAILURE, UNSPECIFIED SNOMED Code(s): 68884433 (2) Hematoma Current Visit: Yes Status: Acute Priority: Medium Code(s): T14.8XXA - OTHER INJURY OF UNSPECIFIED BODY REGION, INITIAL ENCOUNTER SNOMED Code(s): 981304747 (3) Melanoma Current Visit: Yes Status: Acute Priority: High Code(s): C43.9 - MALIGNANT MELANOMA OF SKIN, UNSPECIFIED SNOMED Code(s): 355923523 Plan: Septic shock secondary to UTI -Improved with treatment of the same -ID following -Repeat urine and blood cultures due to leukocytosis on 02/27/2025 were negative Hyponatremia -Nephrology following. Hematoma -CT reporting massive lymphadenopathy in the inguinal lymph nodes. Subcutaneous increased density present at the level of the iliac wings both medially and laterally. Nonspecific, possibly edema or contusions -Ultrasound 03/01/2025 showing fluid collection 5.3 x 5.1 x 1.3 cm. [place] to be a hematoma. -Hemoglobin has remained stable, in the 7 range since transfusions on 02/28 and 03/01 for hemoglobin in the 6 range. -Eliquis was resumed but discontinued for persistent hematuria-actually bleeding is more likely from malignant lesion in the perineal area. Pt has had L[facility]ER [facility] TIER work up a few mo ago -Hgb has remained stable but can see a trend down. -CBC in AM -May repeat US to asses area concerning for hematoma N/V -Persistent despite multiple medications adjustments -MRI of the brain to rule out brain mets as an underlying cause. MRI results reviewed-no evidence for malignancy -We discussed previously that if the MRI was neg may have to consider EGD to see if there is something going on in the esophagus or stomach. Discussed case with GI [facility] [employer]. GI assessed pt. EGD today Metastatic melanoma - Received 3 cycles of Opdualag, last dose on 02/17/2025 - CT AP reported known metastases to the liver and abdominal/iliac lymphadenopathy. This scan was also compared to scans obtained in November 2023. She had a PET CT prior to initiation of treatment [place] [facility] [place] used for [place]. Requesting report, not sure if we will be able to get a disc.
[2025-03-13 11:48] LABS: Basophils # (A) 0.03 10*3/uL (0.00-0.10); Basophils % (A) 0.2 %; Eosinophils # (A) 0.43 10*3/uL (0.04-0.35); Eosinophils % (A) 3.2 %; HCT 23.6 % (37.2-46.3); HGB 7.6 g/dL (12.0-15.0); Lymphocytes # (A) 0.89 10*3/uL (0.90-5.00); Lymphocytes % (A) 6.6 %; MCHC 32.2 g/dL (32.0-37.0); MCV 87.1 fL (80.0-97.0); Mean Platelet Volume 9.3 fL (9.5-12.2); Monocytes # (A) 0.72 10*3/uL (0.20-1.00); Monocytes % (A) 5.4 %; Neutrophils # (A) 11.08 10*3/uL (1.80-7.70); Neutrophils % (A) 82.7 %; Platelet Count 611 10*3/uL (140-440); RBC 2.71 10*6/uL (4.10-5.20); RDW 20.9 % (11.5-14.5)
[2025-03-13 12:28] LABS: Glucose,Whole Blood 141 mg/dL (70-110)
[2025-03-13] MEDS: TOLVAPTAN 15 MG TABLET PO ONE (15:36)
--- NOTE | 2025-03-13 16:26 | P.PN ---
Subjective Progress Note Date: 03/12/25 Principal diagnosis: Reason for follow-up is sepsis and UTI Patient is a 55-year-old female with a past medical history significant for stage IV malignant melanoma on chemo, Diabetes Mellitus, GERD/Reflux, Hyperlipidemia, Hypertension, Osteoarthritis (OA) presenting to the hospital for evaluation of generalized weakness did have urinary symptoms a positive UA concerning for symptomatic UTI with sepsis requiring admission by ICU. On today's evaluation that is 03/12/2025, the patient continues to be afebrile, the patient is on room air and breathing comfortably, the Pt denies having any chest pain or cough, the patient still complaining of feeling nauseated and v omiting or abdominal discomfort no diarrhea or urinary symptoms. Patient white count is 14.60 creatinine is 1.5 Objective - Vital Signs Vital signs: Vital Signs Temp 98.4 F 03/12/25 19:00 Pulse 95 03/12/25 19:00 Resp 18 03/12/25 19:00 BP 124/76 03/12/25 19:00 Pulse Ox 99 03/12/25 19:00 FiO2 Intake & Output 03/12/25 03/12/25 03/13/25 06:59 18:59 06:59 Intake Total 200 Balance 200 Weight 142 kg Intake: Oral 200 Other: Voiding Method Bedpan Bedpan # Voids 3 3 # Bowel Movements 3 - Exam GENERAL DESCRIPTION: A middle-age female lying in bed in no distress RESPIRATORY SYSTEM: Unlabored breathing , decreased breath sounds at bases HEART: S1 S2 regular rate and rhythm , ABDOMEN: Soft , no tenderness EXTREMITIES: No edema feet - Labs CBC & Chem 7: 03/13/25 11:31 03/13/25 04:59 Labs: Abnormal Lab Results - Last 24 Hours (Table) 03/12/25 03/12/25 03/12/25 Range/Units 03:05 03:05 06:07 WBC 14.60 H (4.50-10.00) X 10*3/uL RBC 2.70 L (4.10-5.20) X 10*6/uL Hgb 7.1 L (12.0-15.0) g/dL Hct 23.3 L (37.2-46.3) % MCH 26.3 L (27.0-32.0) pg MCHC 30.5 L (32.0-37.0) g/dL RDW 21.1 H (11.5-14.5) % Plt Count 691 H (140-440) X 10*3/uL Immature Gran # 0.31 H (0.00-0.04) X 10*3/uL Neutrophils # 12.39 H (1.80-7.70) X 10*3/uL Lymphocytes # 0.86 L (0.90-5.00) X 10*3/uL Eosinophils # 0.41 H (0.04-0.35) X 10*3/uL Sodium 125 L (135-145) mmol/L Chloride 94 L (96-109) mmol/L Carbon Dioxide 17.2 L (21.6-31.8) mmol/L Anion Gap 13.80 H (4.00-12.00) mmol/L BUN 74.8 H (9.0-27.0) mg/dL Est GFR (CKD-EPI) 40 L (>=60) BUN/Creatinine Ratio 49.87 H (12.00-20.00) Ratio Glucose 132 H (70-110) mg/dL POC Glucose (mg/dL) 164 H (70-110) mg/dL Calcium 8.5 L (8.7-10.3) mg/dL 03/12/25 03/12/25 03/12/25 Range/Units 11:50 17:02 20:03 WBC (4.50-10.00) X 10*3/uL RBC (4.10-5.20) X 10*6/uL Hgb (12.0-15.0) g/dL Hct (37.2-46.3) % MCH (27.0-32.0) pg MCHC (32.0-37.0) g/dL RDW (11.5-14.5) % Plt Count (140-440) X 10*3/uL Immature Gran # (0.00-0.04) X 10*3/uL Neutrophils # (1.80-7.70) X 10*3/uL Lymphocytes # (0.90-5.00) X 10*3/uL Eosinophils # (0.04-0.35) X 10*3/uL Sodium (135-145) mmol/L Chloride (96-109) mmol/L Carbon Dioxide (21.6-31.8) mmol/L Anion Gap (4.00-12.00) mmol/L BUN (9.0-27.0) mg/dL Est GFR (CKD-EPI) (>=60) BUN/Creatinine Ratio (12.00-20.00) Ratio Glucose (70-110) mg/dL POC Glucose (mg/dL) 165 H 155 H 148 H (70-110) mg/dL Calcium (8.7-10.3) mg/dL Assessment and Plan (1) Sepsis Current Visit: Yes Status: Acute Code(s): A41.9 - SEPSIS, UNSPECIFIED ORGANISM SNOMED Code(s): 90529663 (2) LISSETTE (acute kidney injury) Current Visit: Yes Status: Acute Priority: High Code(s): N17.9 - ACUTE KIDNEY FAILURE, UNSPECIFIED SNOMED Code(s): 28392417 (3) UTI (urinary tract infection) Current Visit: Yes Status: Acute Code(s): N39.0 - URINARY TRACT INFECTION, SITE NOT SPECIFIED SNOMED Code(s): 96992702 (4) Leukocytosis Current Visit: Yes Status: Acute Code(s): D72.829 - ELEVATED WHITE BLOOD CELL COUNT, UNSPECIFIED SNOMED Code(s): 252147830 Plan: 1patient presented hospital with sepsis in this patient who did have tachycardia hypotension elevated white count meeting criteria for SIRS/sepsis source likely urinary in this patient has significantly positive UA along with urinary symptoms likely from enteric gram-negative pathogen keeping in mind history of cancer on chemo will need to cover for resistant gram-negative pathogen 2-patient did have a CT of abdominal pelvis mention worsening lymphadenopathy and concern for hepatic metastasis right lower abdominal wall hematoma, is being managed by hematology oncology 3the patient is afebrile and white count is trending down without antibiotic therapy hence we will monitor closely off antibiotic Dictation was produced using [employer] dictation software. please excuse any grammatical, word or spelling errors. Time with Patient: Less than 30
--- NOTE | 2025-03-13 16:27 | P.PN ---
Subjective Progress Note Date: 03/13/25 Principal diagnosis: Reason for follow-up is sepsis and UTI Patient is a 55-year-old female with a past medical history significant for stage IV malignant melanoma on chemo, Diabetes Mellitus, GERD/Reflux, Hyperlipidemia, Hypertension, Osteoarthritis (OA) presenting to the hospital for evaluation of generalized weakness did have urinary symptoms a positive UA concerning for symptomatic UTI with sepsis requiring admission by ICU. On today's evaluation that is 03/13/2025, Patient is afebrile patient is currently on room air and denies having any shortness of breath, the patient denies any chest pain or cough, the patient did not complain of feeling nauseated but no further vomiting still lower abdominal discomfort no diarrhea or urinary symptoms. Patient white count is 13.40, creatinine is 1.6 Objective - Vital Signs Vital signs: Vital Signs Temp 97.5 F L 03/13/25 08:00 Pulse 74 03/13/25 08:00 Resp 16 03/13/25 08:00 BP 96/61 03/13/25 08:00 Pulse Ox 95 03/13/25 08:00 FiO2 Intake & Output 03/12/25 03/13/25 03/13/25 18:59 06:59 18:59 Intake Total 200 500 Balance 200 500 Weight 170.5 kg Intake: Oral 200 500 Other: Voiding Method Bedpan Bedpan # Voids 3 3 # Bowel Movements 3 - Exam GENERAL DESCRIPTION: A middle-age female lying in bed in no distress RESPIRATORY SYSTEM: Unlabored breathing , decreased breath sounds at bases HEART: S1 S2 regular rate and rhythm , ABDOMEN: Soft , no tenderness EXTREMITIES: No edema feet - Labs CBC & Chem 7: 03/13/25 11:31 03/13/25 04:59 Labs: Abnormal Lab Results - Last 24 Hours (Table) 03/12/25 03/12/25 03/13/25 Range/Units 17:02 20:03 04:59 WBC (4.50-10.00) 10*3/uL RBC (4.10-5.20) 10*6/uL Hgb (12.0-15.0) g/dL Hct (37.2-46.3) % RDW (11.5-14.5) % Plt Count (140-440) 10*3/uL MPV (9.5-12.2) fL Immature Gran # (0.00-0.04) 10*3/uL Neutrophils # (1.80-7.70) 10*3/uL Lymphocytes # (0.90-5.00) 10*3/uL Eosinophils # (0.04-0.35) 10*3/uL PT (9.9-11.9) sec Sodium 123 L (135-145) mmol/L Chloride 91 L (96-109) mmol/L Carbon Dioxide 19.2 L (21.6-31.8) mmol/L Anion Gap 12.80 H (4.00-12.00) mmol/L BUN 68.7 H (9.0-27.0) mg/dL Creatinine 1.6 H (0.6-1.5) mg/dL Est GFR (CKD-EPI) 37 L (>=60) BUN/Creatinine Ratio 42.94 H (12.00-20.00) Ratio Glucose 141 H (70-110) mg/dL POC Glucose (mg/dL) 155 H 148 H (70-110) mg/dL Calcium 8.4 L (8.7-10.3) mg/dL 03/13/25 03/13/25 03/13/25 Range/Units 04:59 06:15 11:31 WBC 13.40 H (4.50-10.00) 10*3/uL RBC 2.71 L (4.10-5.20) 10*6/uL Hgb 7.6 L (12.0-15.0) g/dL Hct 23.6 L (37.2-46.3) % RDW 20.9 H (11.5-14.5) % Plt Count 611 H (140-440) 10*3/uL MPV 9.3 L (9.5-12.2) fL Immature Gran # 0.25 H (0.00-0.04) 10*3/uL Neutrophils # 11.08 H (1.80-7.70) 10*3/uL Lymphocytes # 0.89 L (0.90-5.00) 10*3/uL Eosinophils # 0.43 H (0.04-0.35) 10*3/uL PT 12.4 H (9.9-11.9) sec Sodium (135-145) mmol/L Chloride (96-109) mmol/L Carbon Dioxide (21.6-31.8) mmol/L Anion Gap (4.00-12.00) mmol/L BUN (9.0-27.0) mg/dL Creatinine (0.6-1.5) mg/dL Est GFR (CKD-EPI) (>=60) BUN/Creatinine Ratio (12.00-20.00) Ratio Glucose (70-110) mg/dL POC Glucose (mg/dL) 157 H (70-110) mg/dL Calcium (8.7-10.3) mg/dL 03/13/25 Range/Units 12:26 WBC (4.50-10.00) 10*3/uL RBC (4.10-5.20) 10*6/uL Hgb (12.0-15.0) g/dL Hct (37.2-46.3) % RDW (11.5-14.5) % Plt Count (140-440) 10*3/uL MPV (9.5-12.2) fL Immature Gran # (0.00-0.04) 10*3/uL Neutrophils # (1.80-7.70) 10*3/uL Lymphocytes # (0.90-5.00) 10*3/uL Eosinophils # (0.04-0.35) 10*3/uL PT (9.9-11.9) sec Sodium (135-145) mmol/L Chloride (96-109) mmol/L Carbon Dioxide (21.6-31.8) mmol/L Anion Gap (4.00-12.00) mmol/L BUN (9.0-27.0) mg/dL Creatinine (0.6-1.5) mg/dL Est GFR (CKD-EPI) (>=60) BUN/Creatinine Ratio (12.00-20.00) Ratio Glucose (70-110) mg/dL POC Glucose (mg/dL) 141 H (70-110) mg/dL Calcium (8.7-10.3) mg/dL Assessment and Plan (1) Sepsis Current Visit: Yes Status: Acute Code(s): A41.9 - SEPSIS, UNSPECIFIED ORGANISM SNOMED Code(s): 08015326 (2) LISSETTE (acute kidney injury) Current Visit: Yes Status: Acute Priority: High Code(s): N17.9 - ACUTE KIDNEY FAILURE, UNSPECIFIED SNOMED Code(s): 78252109 (3) UTI (urinary tract infection) Current Visit: Yes Status: Acute Code(s): N39.0 - URINARY TRACT INFECTION, SITE NOT SPECIFIED SNOMED Code(s): 64852324 (4) Leukocytosis Current Visit: Yes Status: Acute Code(s): D72.829 - ELEVATED WHITE BLOOD CELL COUNT, UNSPECIFIED SNOMED Code(s): 252044353 Plan: 1patient presented hospital with sepsis in this patient who did have tachycardia hypotension elevated white count meeting criteria for SIRS/sepsis source likely urinary in this patient has significantly positive UA along with urinary symptoms likely from enteric gram-negative pathogen keeping in mind history of cancer on chemo will need to cover for resistant gram-negative pathogen 2-patient did have a CT of abdominal pelvis mention worsening lymphadenopathy and concern for hepatic metastasis right lower abdominal wall hematoma, is being managed by hematology oncology 3the patient is afebrile and white count is trending down to 13,000, without antibiotic therapy hence we will monitor closely off antibiotic currently GI workup is in progress at the bedside question answered Dictation was produced using [employer] dictation software. please excuse any grammatical, word or spelling errors. Time with Patient: Less than 30
[2025-03-13 16:57] LABS: Glucose,Whole Blood 147 mg/dL (70-110)
[2025-03-13] MEDS: polyethylene glycoL 3350 17 GM POWD.PACK PO SCH (17:07)
[2025-03-14 05:44] LABS: Basophils # (A) 0.01 10*3/uL (0.00-0.10); Basophils % (A) 0.1 %; Eosinophils # (A) 0.51 10*3/uL (0.04-0.35); HCT 22.8 % (37.2-46.3); HGB 7.2 g/dL (12.0-15.0); Lymphocytes % (A) 6.3 %; MCH 27.3 pg (27.0-32.0); MCHC 31.6 g/dL (32.0-37.0); MCV 86.4 fL (80.0-97.0); Mean Platelet Volume 9.3 fL (9.5-12.2); Monocytes # (A) 0.66 10*3/uL (0.20-1.00); Monocytes % (A) 5.2 %; Neutrophils # (A) 10.55 10*3/uL (1.80-7.70); Neutrophils % (A) 83.1 %; Platelet Count 588 10*3/uL (140-440); RBC 2.64 10*6/uL (4.10-5.20); RDW 20.5 % (11.5-14.5); WBC 12.69 10*3/uL (4.50-10.00)
[2025-03-14 06:10] LABS: Glucose,Whole Blood 179 mg/dL (70-110)
[2025-03-14 06:10] LABS: Glucose,Whole Blood 159 mg/dL (70-110)
[2025-03-14 06:21] LABS: Glucose,Whole Blood 145 mg/dL (70-110)
[2025-03-14 08:30] LABS: BUN/Creat Ratio 39.56 Ratio (12.00-20.00); Blood Urea Nitrogen 71.2 mg/dL (9.0-27.0); Calcium 8.2 mg/dL (8.7-10.3); Carbon Dioxide 19.7 mmol/L (21.6-31.8); Chloride 91 mmol/L (96-109); Glucose 114 mg/dL (70-110); Potassium 4.7 mmol/L (3.5-5.5); Sodium 123 mmol/L (135-145)
--- NOTE | 2025-03-14 09:59 | P.PN ---
Subjective Progress Note Date: 03/13/25 Patient is a 55-year-old female with a past medical history of hypertension, hyperlipidemia, diabetes type 2 insulin-dependent, metastatic malignant melanoma with mets to liver and lymph nodes, depression, prior history of smoking, GERD and diabetic peripheral neuropathy and history of SVT, prior history of smoking. Patient presents to ER from Dr. Botello's office due to abnormal labs. Patient was also having generalized weakness. She was in the office for her third infusion. She had blood workup done yesterday which showed multiple abnormalities and was recommended to go to ER. She is also having generalized body pains. Also worsening shortness of breath. No chest pain. She does have decreased appetite and not eating well., No nausea no episodes of vomiting. EKG on admission showed sinus rhythm with heart rate 62 Chest x-ray showed no focal consolidation. Elevation of the right hemidiaphragm which is increased from prior exam. Consider sniff test to evaluate for diaphragmatic paralysis. Laboratory data showed WBC 26.7 hemoglobin 8.8 and platelets 634 MCV 75.3 Sodium 118, potassium 4.1 chloride 93 bicarb is 10 BUN 52 and creatinine 2.96, blood sugar 103 lactic acid 1.1 phosphorus 5.8 alk phos 241 proBNP 2350 lipase 441 Urinalysis showed light yellow turbid with large blood nitrite positive leukocyte esterase large elevated RBCs and WBCs. Influenza A B RSV and COVID-19 PCR not detected. 02/22/2025 Patient is in the MICU. Patient is requiring pressor support with Levophed. Resting in the bed. Awake alert and oriented. Currently on room air. Afebrile overnight. Denied any complaints of nausea vomiting abdominal pain or diarrhea. Lab data showed WBC trending down to 21.7 hemoglobin 8.2 and platelets 0.91 sodium improved to 121 potassium 4.5 chloride 101 bicarb is 6 BUN 54 and creatinine 2.72. Antibiotics were changed to cefazolin 2 g Q12. Nephrology and ID is on board. 02/24/2024 Patient is needing intensive care unit. Awake alert and oriented x 3. Currently on room air. Patient is off pressor support since 5 AM this morning. Sodium level improved to 127 today. Patient is on antibiotics in the form of cefepime. Urine culture showed Proteus Mirabella's. Laboratory data showed WBC 17.7 hemoglobin 7.4 and platelets 505 sodium 123 potassium 3.6 chloride 98 bicarb is 15 BUN 44 and creatinine 1.98, calcium 8.3. 02/24/2025 Patient is in MICU. Ureteric and ovarian x 3. Currently on room air. No complaints of chest pain or shortness of breath. Sodium level improved to 127 today. Patient is also been antibiotics for urinary tract infection with ceft riaxone. Urine culture growing Proteus mirabilis. Patient has been afebrile. Patient was given urea 15 g p.o. twice daily. Continued on insulin regimen. Laboratory test showed WBC 16.1 hemoglobin 7.3 and platelets 543 sodium 127 potassium 3.8 chloride 98 bicarb is 15 BUN 4020 creatinine 1.35 and blood sugar 82 magnesium 1.7 albumin 2.4. 02/25/2025 Patient is resting in the bed. Awake alert and oriented. No complaints of chest pain or shortness of breath. Tolerating oral diet. Patient is off IV fluids. He was started on urea and patient was also given Samsca. Sodium level is 126 today. Other laboratory data showed sodium 126 potassium 3.9 chloride 97 bicarb is 19 BUN 56 and creatinine 1.06 and blood sugar 125. Magnesium 1.9. Patient is getting ceftriaxone for urinary tract infection. 02/26 Patient lying in bed comfortable no chest pain or dyspnea No vomiting, she has average appetite No abdominal abdominal pain Patient has ongoing dysuria. 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 As per patient she was getting chemotherapy since November 2024. Her oncologist as outpatient is Dr. Botello. She had 3 cycles of chemotherapy so far. Her Cozaar Aldactone and metformin remain on hold 02/27 Clinically looks the same, awake and alert Main complaint is dysuria which is going on for 1.5 months which looks chronic related to her vaginal mass She is following up with hematology/oncology. Also she follow-up with the surgeon at [facility] with no plans for surgical intervention. 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 She has right foot boot on. She says she has fracture on November 26 and she is going to follow-up with her orthopedic in 1 to 2 weeks after discharge. No other new complaints Vital stable and afebrile. 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 Both of these lesions has progressed today She is developing more signs of infection with hypotension, leukocytosis went up to 19.6. Creatinine went up to 1.8, systolic blood pressure dropped from 140s down to 100 but slightly less. Patient thought secondary to have urinary tract infection and she is on ceftriaxone 2 g. Diflucan with loading dose added today. No respiratory symptoms no abdominal pain or diarrhea. No rash. No other source of infection She is also on Cardizem 120 and metoprolol 50 mg for A-fib. Also she is on Eliquis 2.5 mg. Hemoglobin dropped today to 6.6. With no evidence of bleeding. She is getting unit of blood transfusion. Posttransfusion Lasix was held because of borderline low blood pressure. After the blood pressure improved. Also she has CT of the abdomen and pelvis showing generalized lymphadenopathy and around the aorta and retrocaval as well as along the iliac chain Most likely related to her metastatic disease. There is evidence also of hepatic metastasis, hematology/oncology team on the case. Patient was informed with some of the CT findings as above 03/01 Patient is still feeling lethargic. She has large fullness with a bruise in the lower abdomen, she is morbidly obese and she has already pendulous abdomen, the area is standing in her. Possible bleeding. Hold Eliquis and check abdominal u ltrasound She is s/p 1 unit of blood transfusion yesterday, hemoglobin went up 6.6 up to 7.4. She is also on ceftriaxone and Diflucan for suspected UTI She is a known case of malignant melanoma with evidence of metastasis to the abdominal lymphadenopathy and liver. 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 She looks tired and fatigue Hemoglobin stable at 7.6, WBC down to 18,000 creatinine actually went down to 1.6 She is on ceftriaxone Diflucan, Eliquis 2.5 mg scheduled for renal dose and metoprolol 5 mg Patient advised about fluid restriction 03/04 Patient was with several year nausea vomiting yesterday controlled with scopolamine patch and Compazine and she needed another Compazine dose this morning because of vomiting but now controlled because of this we are going to discontinue scopolamine and keep monitoring Also she is hyponatremic 123 yesterday and low urine sodium, they were trying to get her up to the commode yesterday but she was very weak and her legs gave way and she has to be lowered to the ground, blood pressure was soft 90s over 40s. However this morning there is maybe some improvement with her blood pressure in the systolic reading is more than 100. She is feeling little bit stronger. And we checked her orthostatic vitals while lying and sitting up and they were negative. We will check another urine sodium today and serum sodium. And will decide if patient will need more IV bolus or IV fluids. Her Eliquis remains on hold, her lower abdominal hematoma is improving less discoloration and less pain/tenderness discussed with staff 03/05 Patient today feels better she is up in bed and she looks better and more energetic. Patient asking when she will be discharged home Her pain and bruise on the lower abdominal are stable and improving slowly and gradually. Still has vaginal symptoms but today she has less vaginal bleeding for the first time as she explains but has not stopped completely. Blood pressure above 100 which looks stable. Sodium slightly up 123 up to 124 and creatinine 1.6. Leukocyte count is coming down to 16,000 and hemoglobin down to 7.4 from 7.6 She remains on ceftriaxone and Diflucan. Eliquis remains on hold. She is still giving sodium bicarb tablets per nephrology team 03/06 Patient still feels stronger, she was to go home from yesterday Patient denies any other new symptoms. She has ongoing vaginal mass related to her melanoma with evidence of metastasis intra-abdominal the and into the lymph node. She has been treated with antibiotics. She finished her course yesterday we will keep monitoring. Currently she is afebrile. She has chronic leukocytosis. Also her labs are stable low sodium 124, creatinine improved down to 1.52. Hemoglobin is stable at 7.3 Eliquis remains on hold and her intra-abdominal wall hematoma is improving. Possible resume Eliquis upon discharge Sodium also stable creatinine improving, I discussed the case with Dr. Wood who cleared her for discharge today However patient was vomiting despite taking medication therefore we are going to monitor her today. Scopolamine patch and Benadryl was added Possible discharge in 24 to 48 hours if she keeps improved 03/07 Patient was doing well today Had nausea vomiting controlled with Benadryl helped as well She was cleared for discharge by all consultants. After discharge today, patient left on her way to the car she felt generally weak and she fell so she came back, Patient now requesting subacute rehab which is going to be early next week 03/08 Yesterday patient was discharged home. Originally she was evaluated by PT/OT recommended subacute rehab but patient declined Her nausea vomiting controlled and on her way out with her she could not move correctly from a standing position to this vehicle seat so she lost her balance and she has to be lowered to the ground but there is no actual fall with no head trauma or any other part per her body confirmed with her which is at bedside now She still complains from appetite is poor Patient denies vomiting as above no abdominal pain or worsening infection. She tolerates her diet little by little. Ultimately most likely patient will be discharged to rehab on Friday 03/09 Patient came back to the hospital after she discharge and fell on her way leaving the hospital Now she is pending placement to rehab She denies any other new complaint Eliquis was held about a week ago after she developed lower abdominal hematoma. Currently stable recommend to resume her Eliquis starting tomorrow 03/10/2025 Patient is seen and evaluated in follow-up today continuing to have dry heaves and multiple episodes of nausea with vomiting. Patient is taking a number of different antinausea medications with no relief with multiple consultations following including nephrology and oncology. White count remains elevated at 15.4, hemoglobin is 7.3, sodium remains low although stable at 125. Replace electrolytes per protocol. Patient is significantly weak and working on discharge planning possibly to ECF with case management following. Continue PT OT therapy notes. 03/11/2025 Patient is seen in follow-up today continues to have multiple episodes of vomiting with nausea and dry heaving with oncology following with concerns of possible lesion of the brain or metastasis and has ordered MRI of the brain. Patient is on multiple amounts of antinausea medication with no relief. Patient continues with significant weakness and unable to tolerate much diet not eating very well. Sodium continues to be low and was given a dose of Samsca today per nephrology will follow-up on repeat labs. Recommend physical therapy daily for continued strength and mobility. Patient may require ECF on discharge as patient has had prolonged hospitalization with multiple hospitalizations and progressively becoming more weak. Prognosis is guarded at this time. 03/12/2025 Patient is seen in follow-up this morning more awake today underwent MRI of the brain yesterday with no suggestions of lesions or metastatic disease noted. Patient continues to have continuous nausea with dry heaving and vomiting noted. Referral was placed to GI and appreciate input and recommendations. Possible endoscopy intervention being planned. Patient reports she was able to have a bowel movement today although unsure on exact consistency and if there was blood noted. Hemoglobin is 7.1 today. Recommend to continue monitoring closely. 03/13/2025 Patient is seen in follow-up this morning currently is n.p.o. as patient was scheduled to undergo EGD with GI services. No active GI bleeding noted at this time other than continued hematuria and Xarelto remains on hold. Hemoglobin is 7.6 and white count remains elevated at 13.4 maintained on antibiotics with infectious disease following. Patient sodium continues to drop with nephrology following status post Samsca with no improvement and is currently 123. Kidney function study going up and and creatinine is 1.6 with a BUN of 68.7. Will await GI evaluation. Review of systems: Constitutional: No reports of fatigue, fever, or chills Cardiovascular: No reports of chest pain or palpitations Respiratory: No reports of shortness of breath or cough GI: reports of nausea, with continued dry heaves and vomiting, reports had a bowel movement yesterday : No reports of dysuria or retention Neurovascular: reports of weakness All medications have been reviewed Physical exam: GENERAL: The patient is alert and oriented x3. Well developed, well nourished. Appears older than stated age, ill-appearing, morbidly obese HEENT: Pupils are round and equally reacting to light. EOMI. No scleral icterus. No conjunctival pallor. Normocephalic, atraumatic. No pharyngeal erythema. No thyromegaly. CARDIOVASCULAR: S1 and S2 present. No murmurs, rubs, or gallops. PULMONARY: Diminished breath sounds bilaterally otherwise chest is clear to auscultation, no wheezing , no crackles. ABDOMEN: Soft, obese, nontender, nondistended, normoactive bowel sounds. No palpable organomegaly. MUSCULOSKELETAL: No joint swelling or deformity. EXTREMITIES: No cyanosis, clubbing, or pedal edema. NEUROLOGICAL: Gross neurological examination did not reveal any focal deficits. Diffusely weak SKIN: No rashes. no petechiae. Assessment: Lower abdominal hematoma suspected with severe anemia required unit of blood transfusion on 03/01 Severe hyponatremia with sodium level 118 on admission-hypoosmolar hyponatremia due to decreased oral intake and LISSETTE. Stable at 125 today with no changes status post Samsca administration Acute kidney injury. Possible ATN. SIADH cannot be excluded due to underlying malignancy. Creatinine 2.96 on admission baseline 1.0 Fall outside the hospital with generalized weakness and difficulty ambulating Non-anion gap metabolic acidosis Acute urinary tract infection with Proteus Mirabella's. Mild pancreatitis with lipase level 441, improved Malignant melanoma with mets to liver and lymph nodes, generalized intra- abdominal lymphadenopathy and hepatic metastasis. On chemoinfusion and is on follow-up with oncology. Diabetes type 2 insulin-dependent Diabetic peripheral neuropathy History of SVT Paroxysmal atrial fibrillation Osteoarthritis Hypertension Hyperlipidemia GERD Depression Prior history of smoking Microcytic anemia rule out iron deficiency. Hemoglobin 8.8 on admission morbid obesity with a BMI of 48.8 GI prophylaxis DVT prophylaxis No code Plan: Continue with the current antiemetics and adjust medications as patient continues to have dry heaving and vomiting. Oncology following with concerns of possible lesion or metastasis to the brain and underwent MRI of the brain which was negative GI consulted and appreciate input and recommendations. Endoscopy is being planned and is tentatively scheduled for today 03/13/2025 although awaiting confirmation of time and availability in the endoscopic suite Patient was able to have a bowel movement 03/25/2025 and recommend to continue with scheduled bowel regimen Continue holding Eliquis 2.5 mg, keep monitoring hemoglobin and the hematoma. Hemoglobin is stable above 7 at this time Patient to continue with antibiotic regimen per ID recommendations Monitor sodium level, nephrology following and sodium is 125, nephrology following and has provided Samsca and sodium remains 124 Recommend PT/OT therapy evaluation with case management following and plan is to discharge to possible ECF for continued strength and mobility as patient fell attempting to leave the hospital on last admission and unable to get up. Patient has had frequent hospitalizations with prolonged hospitalization and is significantly weak from continued strength mobility Due to multiple complex medical issues, overall prognosis is extremely guarded The impression and plan of care has been dictated by Roselyn Rod, Nurse Practitioner as directed. Dr. Iris MD I have performed a history and examination and MDM of this patient, discussed the same with the dictator, and agree with the dictator's assessment and plan as written ,documented as a scribe. Based on total visit time, I have performed more than 50% of the visit. Objective - Vital Signs Vital signs: Vital Signs Temp 97.8 F 03/14/25 07:00 Pulse 79 03/14/25 07:00 Resp 18 03/14/25 07:00 BP 107/68 03/14/25 07:00 Pulse Ox 98 03/14/25 07:00 FiO2 Intake & Output 03/13/25 03/14/25 03/14/25 18:59 06:59 18:59 Intake Total 250 Balance 250 Weight 147.5 kg Intake: Oral 250 Other: Voiding Method Bedpan # Voids 4 4 - Labs CBC & Chem 7: 03/14/25 05:02 03/14/25 05:02 Labs: Abnormal Lab Results - Last 24 Hours (Table) 03/13/25 03/13/25 03/13/25 Range/Units 04:59 11:31 12:26 WBC 13.40 H (4.50-10.00) 10*3/uL RBC 2.71 L (4.10-5.20) 10*6/uL Hgb 7.6 L (12.0-15.0) g/dL Hct 23.6 L (37.2-46.3) % MCHC (32.0-37.0) g/dL RDW 20.9 H (11.5-14.5) % Plt Count 611 H (140-440) 10*3/uL MPV 9.3 L (9.5-12.2) fL Immature Gran # 0.25 H (0.00-0.04) 10*3/uL Neutrophils # 11.08 H (1.80-7.70) 10*3/uL Lymphocytes # 0.89 L (0.90-5.00) 10*3/uL Eosinophils # 0.43 H (0.04-0.35) 10*3/uL PT 12.4 H (9.9-11.9) sec Sodium (135-145) mmol/L Chloride (96-109) mmol/L Carbon Dioxide (21.6-31.8) mmol/L Anion Gap (4.00-12.00) mmol/L BUN (9.0-27.0) mg/dL Creatinine (0.6-1.5) mg/dL Est GFR (CKD-EPI) (>=60) BUN/Creatinine Ratio (12.00-20.00) Ratio Glucose (70-110) mg/dL POC Glucose (mg/dL) 141 H (70-110) mg/dL Calcium (8.7-10.3) mg/dL 03/13/25 03/13/25 03/13/25 Range/Units 16:55 20:09 21:00 WBC (4.50-10.00) 10*3/uL RBC (4.10-5.20) 10*6/uL Hgb (12.0-15.0) g/dL Hct (37.2-46.3) % MCHC (32.0-37.0) g/dL RDW (11.5-14.5) % Plt Count (140-440) 10*3/uL MPV (9.5-12.2) fL Immature Gran # (0.00-0.04) 10*3/uL Neutrophils # (1.80-7.70) 10*3/uL Lymphocytes # (0.90-5.00) 10*3/uL Eosinophils # (0.04-0.35) 10*3/uL PT (9.9-11.9) sec Sodium (135-145) mmol/L Chloride (96-109) mmol/L Carbon Dioxide (21.6-31.8) mmol/L Anion Gap (4.00-12.00) mmol/L BUN (9.0-27.0) mg/dL Creatinine (0.6-1.5) mg/dL Est GFR (CKD-EPI) (>=60) BUN/Creatinine Ratio (12.00-20.00) Ratio Glucose (70-110) mg/dL POC Glucose (mg/dL) 147 H 179 H 159 H (70-110) mg/dL Calcium (8.7-10.3) mg/dL 03/14/25 03/14/25 03/14/25 Range/Units 05:02 05:02 06:19 WBC 12.69 H (4.50-10.00) 10*3/uL RBC 2.64 L (4.10-5.20) 10*6/uL Hgb 7.2 L (12.0-15.0) g/dL Hct 22.8 L (37.2-46.3) % MCHC 31.6 L (32.0-37.0) g/dL RDW 20.5 H (11.5-14.5) % Plt Count 588 H (140-440) 10*3/uL MPV 9.3 L (9.5-12.2) fL Immature Gran # 0.16 H (0.00-0.04) 10*3/uL Neutrophils # 10.55 H (1.80-7.70) 10*3/uL Lymphocytes # 0.80 L (0.90-5.00) 10*3/uL Eosinophils # 0.51 H (0.04-0.35) 10*3/uL PT (9.9-11.9) sec Sodium 123 L (135-145) mmol/L Chloride 91 L (96-109) mmol/L Carbon Dioxide 19.7 L (21.6-31.8) mmol/L Anion Gap 12.30 H (4.00-12.00) mmol/L BUN 71.2 H (9.0-27.0) mg/dL Creatinine 1.8 H (0.6-1.5) mg/dL Est GFR (CKD-EPI) 32 L (>=60) BUN/Creatinine Ratio 39.56 H (12.00-20.00) Ratio Glucose 114 H (70-110) mg/dL POC Glucose (mg/dL) 145 H (70-110) mg/dL Calcium 8.2 L (8.7-10.3) mg/dL
--- NOTE | 2025-03-14 10:28 | P.PN ---
Subjective Patient is seen in follow-up for acute kidney injury and hyponatremia. Sodium level stable at 123 today. Oral intake remains poor. Continues to have dry heaves. Upper GI pending. Vital signs are stable. General: No acute distress. HEENT: Head exam is unremarkable. LUNGS: No audible rhonchi or wheezes. HEART: Rate and Rhythm are regular. ABDOMEN: Nontender. EXTREMITITES: 1+ edema right lower extremity. Objective - Vital Signs Vital signs: Vital Signs Temp 97.8 F 03/14/25 07:00 Pulse 79 03/14/25 07:00 Resp 18 03/14/25 07:00 BP 107/68 03/14/25 07:00 Pulse Ox 98 03/14/25 07:00 FiO2 Intake & Output 03/13/25 03/14/25 03/14/25 18:59 06:59 18:59 Intake Total 250 Balance 250 Weight 147.5 kg Intake: Oral 250 Other: Voiding Method Bedpan # Voids 4 4 - Labs CBC & Chem 7: 03/14/25 05:02 03/14/25 05:02 Labs: Abnormal Lab Results - Last 24 Hours (Table) 03/13/25 03/13/25 03/13/25 Range/Units 04:59 11:31 12:26 WBC 13.40 H (4.50-10.00) 10*3/uL RBC 2.71 L (4.10-5.20) 10*6/uL Hgb 7.6 L (12.0-15.0) g/dL Hct 23.6 L (37.2-46.3) % MCHC (32.0-37.0) g/dL RDW 20.9 H (11.5-14.5) % Plt Count 611 H (140-440) 10*3/uL MPV 9.3 L (9.5-12.2) fL Immature Gran # 0.25 H (0.00-0.04) 10*3/uL Neutrophils # 11.08 H (1.80-7.70) 10*3/uL Lymphocytes # 0.89 L (0.90-5.00) 10*3/uL Eosinophils # 0.43 H (0.04-0.35) 10*3/uL PT 12.4 H (9.9-11.9) sec Sodium (135-145) mmol/L Chloride (96-109) mmol/L Carbon Dioxide (21.6-31.8) mmol/L Anion Gap (4.00-12.00) mmol/L BUN (9.0-27.0) mg/dL Creatinine (0.6-1.5) mg/dL Est GFR (CKD-EPI) (>=60) BUN/Creatinine Ratio (12.00-20.00) Ratio Glucose (70-110) mg/dL POC Glucose (mg/dL) 141 H (70-110) mg/dL Calcium (8.7-10.3) mg/dL 03/13/25 03/13/25 03/13/25 Range/Units 16:55 20:09 21:00 WBC (4.50-10.00) 10*3/uL RBC (4.10-5.20) 10*6/uL Hgb (12.0-15.0) g/dL Hct (37.2-46.3) % MCHC (32.0-37.0) g/dL RDW (11.5-14.5) % Plt Count (140-440) 10*3/uL MPV (9.5-12.2) fL Immature Gran # (0.00-0.04) 10*3/uL Neutrophils # (1.80-7.70) 10*3/uL Lymphocytes # (0.90-5.00) 10*3/uL Eosinophils # (0.04-0.35) 10*3/uL PT (9.9-11.9) sec Sodium (135-145) mmol/L Chloride (96-109) mmol/L Carbon Dioxide (21.6-31.8) mmol/L Anion Gap (4.00-12.00) mmol/L BUN (9.0-27.0) mg/dL Creatinine (0.6-1.5) mg/dL Est GFR (CKD-EPI) (>=60) BUN/Creatinine Ratio (12.00-20.00) Ratio Glucose (70-110) mg/dL POC Glucose (mg/dL) 147 H 179 H 159 H (70-110) mg/dL Calcium (8.7-10.3) mg/dL 03/14/25 03/14/25 03/14/25 Range/Units 05:02 05:02 06:19 WBC 12.69 H (4.50-10.00) 10*3/uL RBC 2.64 L (4.10-5.20) 10*6/uL Hgb 7.2 L (12.0-15.0) g/dL Hct 22.8 L (37.2-46.3) % MCHC 31.6 L (32.0-37.0) g/dL RDW 20.5 H (11.5-14.5) % Plt Count 588 H (140-440) 10*3/uL MPV 9.3 L (9.5-12.2) fL Immature Gran # 0.16 H (0.00-0.04) 10*3/uL Neutrophils # 10.55 H (1.80-7.70) 10*3/uL Lymphocytes # 0.80 L (0.90-5.00) 10*3/uL Eosinophils # 0.51 H (0.04-0.35) 10*3/uL PT (9.9-11.9) sec Sodium 123 L (135-145) mmol/L Chloride 91 L (96-109) mmol/L Carbon Dioxide 19.7 L (21.6-31.8) mmol/L Anion Gap 12.30 H (4.00-12.00) mmol/L BUN 71.2 H (9.0-27.0) mg/dL Creatinine 1.8 H (0.6-1.5) mg/dL Est GFR (CKD-EPI) 32 L (>=60) BUN/Creatinine Ratio 39.56 H (12.00-20.00) Ratio Glucose 114 H (70-110) mg/dL POC Glucose (mg/dL) 145 H (70-110) mg/dL Calcium 8.2 L (8.7-10.3) mg/dL Assessment and Plan Plan: Assessment: 1. 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 Also on Wellbutrin. Urine osmolality 252. Sodium stable at 123. Cortisol level high. TSH normal. Urine osmolality 252. 2. Malignant melanoma with metastatic disease to liver and lymph nodes. 3. Acute kidney injury secondary to ATN secondary to severe sepsis. Baseline creatinine near 1 from December 2024. Creatinine 2.96 on admission and improved to 1.06 - now stable near 1.5-1.6. 4. UTI status post antibiotics. Urine culture positive for Proteus. 5. Metabolic acidosis secondary to acute kidney injury and IV fluids. Was also on metformin. On oral bicarb. 6. Diabetes mellitus. 7. Anemia secondary to acute blood loss. Iron deficiency noted. s/p IV iron and blood transfusion this admission. Hematology following. Plan: Encourage oral intake. Maintain sodium chloride tabs. Lasix 40 mg IV once today. Repeat sodium level this afternoon. If no improvement, will repeat Samsca. Upper GI pending. Maintain fluid restriction. Zofran as needed.
[2025-03-14] MEDS: FUROSEMIDE 10 MG/ML 4 ML VIAL IV STA (11:12)
[2025-03-14 11:49] LABS: Glucose,Whole Blood 154 mg/dL (70-110)
[2025-03-14] MEDS: SCOPOLAMINE 1 MG/72 HR PATCH TRANSDERM SCH (12:01)
--- NOTE | 2025-03-14 12:17 | P.PN ---
Subjective Progress Note Date: 03/14/25 Principal diagnosis: Intractable nausea and vomiting This a pleasant 55-year-old female with a history of multiple comorbidities including metastatic malignant melanoma with metastasis to the liver and iliac lymphadenopathy as well as appears to the sacrum and coccyx Who follows with Dr. Botello who was admitted 19 days ago with generalized weakness and concerns for infection. Patient was admitted and treated for severe hyponatremia, acute kidney injury, and urinary tract infection. Issues currently on 2 immunotherapies last received 23 days ago. Apparently throughout the h ospitalization she has had reportedly intractable vomiting. She is mostly dry heaving, she has decreased appetite and not really eating. Gastroenterology was consulted by oncology and asked if we could do upper endoscopy for direct visualization. Patient also does report some diffuse abdominal pain. No blood in her emesis. Mostly dry heaving. Oncology ordered MRI of the brain to rule out metastasis to the brain which could possibly be causing vomiting. MRI of the brain shows no lesions. 03/14/2025 Patient seen and examined today as a follow-up. Yesterday she was post to undergo upper endoscopy however due to her sodium being 123 anesthesia canceled procedure. Repeat sodium today 123 potassium 4.7 BUN 71 creatinine 1.8. Spoke with Dr. Alston with nephrology he states he would try and treat her sodium again today hoping to increase it. She continues with generalized abdominal dis comfort, and nausea with dry heaves. Currently n.p.o. Objective - Vital Signs Vital signs: Vital Signs Temp 98.1 F 03/14/25 00:40 Pulse 80 03/14/25 00:40 Resp 17 03/14/25 00:40 BP 105/68 03/14/25 06:22 Pulse Ox 98 03/14/25 00:40 FiO2 Intake & Output 03/13/25 03/13/25 03/14/25 06:59 18:59 06:59 Intake Total 500 250 Balance 500 250 Weight 170.5 kg 147.5 kg Intake: Oral 500 250 Other: Voiding Method Bedpan Bedpan # Voids 3 4 4 - Exam General appearance: The patient is alert, oriented, appears in no acute distress. HET: Head is normocephalic and atraumatic. Conjunctiva pink. Sclera anicteric. Neck: Supple without lymphadenopathy. Abdomen: Soft, nontender, nondistended. Extremities: Normal skin color and turgor. No pedal edema Skin: No rashes, no jaundice Neurological: No focal deficits. Alert and oriented. - Labs CBC & Chem 7: 03/14/25 05:02 03/14/25 05:02 Labs: Abnormal Lab Results - Last 24 Hours (Table) 03/13/25 03/13/25 03/13/25 Range/Units 04:59 04:59 11:31 WBC 13.40 H (4.50-10.00) 10*3/uL RBC 2.71 L (4.10-5.20) 10*6/uL Hgb 7.6 L (12.0-15.0) g/dL Hct 23.6 L (37.2-46.3) % MCHC (32.0-37.0) g/dL RDW 20.9 H (11.5-14.5) % Plt Count 611 H (140-440) 10*3/uL MPV 9.3 L (9.5-12.2) fL Immature Gran # 0.25 H (0.00-0.04) 10*3/uL Neutrophils # 11.08 H (1.80-7.70) 10*3/uL Lymphocytes # 0.89 L (0.90-5.00) 10*3/uL Eosinophils # 0.43 H (0.04-0.35) 10*3/uL PT 12.4 H (9.9-11.9) sec Sodium 123 L (135-145) mmol/L Chloride 91 L (96-109) mmol/L Carbon Dioxide 19.2 L (21.6-31.8) mmol/L Anion Gap 12.80 H (4.00-12.00) mmol/L BUN 68.7 H (9.0-27.0) mg/dL Creatinine 1.6 H (0.6-1.5) mg/dL Est GFR (CKD-EPI) 37 L (>=60) BUN/Creatinine Ratio 42.94 H (12.00-20.00) Ratio Glucose 141 H (70-110) mg/dL POC Glucose (mg/dL) (70-110) mg/dL Calcium 8.4 L (8.7-10.3) mg/dL 03/13/25 03/13/25 03/13/25 Range/Units 12:26 16:55 20:09 WBC (4.50-10.00) 10*3/uL RBC (4.10-5.20) 10*6/uL Hgb (12.0-15.0) g/dL Hct (37.2-46.3) % MCHC (32.0-37.0) g/dL RDW (11.5-14.5) % Plt Count (140-440) 10*3/uL MPV (9.5-12.2) fL Immature Gran # (0.00-0.04) 10*3/uL Neutrophils # (1.80-7.70) 10*3/uL Lymphocytes # (0.90-5.00) 10*3/uL Eosinophils # (0.04-0.35) 10*3/uL PT (9.9-11.9) sec Sodium (135-145) mmol/L Chloride (96-109) mmol/L Carbon Dioxide (21.6-31.8) mmol/L Anion Gap (4.00-12.00) mmol/L BUN (9.0-27.0) mg/dL Creatinine (0.6-1.5) mg/dL Est GFR (CKD-EPI) (>=60) BUN/Creatinine Ratio (12.00-20.00) Ratio Glucose (70-110) mg/dL POC Glucose (mg/dL) 141 H 147 H 179 H (70-110) mg/dL Calcium (8.7-10.3) mg/dL 03/13/25 03/14/25 03/14/25 Range/Units 21:00 05:02 06:19 WBC 12.69 H (4.50-10.00) 10*3/uL RBC 2.64 L (4.10-5.20) 10*6/uL Hgb 7.2 L (12.0-15.0) g/dL Hct 22.8 L (37.2-46.3) % MCHC 31.6 L (32.0-37.0) g/dL RDW 20.5 H (11.5-14.5) % Plt Count 588 H (140-440) 10*3/uL MPV 9.3 L (9.5-12.2) fL Immature Gran # 0.16 H (0.00-0.04) 10*3/uL Neutrophils # 10.55 H (1.80-7.70) 10*3/uL Lymphocytes # 0.80 L (0.90-5.00) 10*3/uL Eosinophils # 0.51 H (0.04-0.35) 10*3/uL PT (9.9-11.9) sec Sodium (135-145) mmol/L Chloride (96-109) mmol/L Carbon Dioxide (21.6-31.8) mmol/L Anion Gap (4.00-12.00) mmol/L BUN (9.0-27.0) mg/dL Creatinine (0.6-1.5) mg/dL Est GFR (CKD-EPI) (>=60) BUN/Creatinine Ratio (12.00-20.00) Ratio Glucose (70-110) mg/dL POC Glucose (mg/dL) 159 H 145 H (70-110) mg/dL Calcium (8.7-10.3) mg/dL Assessment and Plan (1) Intractable vomiting Narrative/Plan: 55-year-old female diagnosed with metastatic melanoma on immunotherapy hospitalized for last 19 days and treated for urinary tract infection, severe hyponatremia and acute kidney injury which have been improving however patient has had increased intractable vomiting with dry heaves. Decreased appetite eating very little and patient's oncologist concerned with ongoing vomiting asking for direct visualization with upper endoscopy. Will plan for upper endoscopy tomorrow, patient is agreeable to proceed with procedure. Current Visit: Yes Status: Acute Code(s): R11.10 - VOMITING, UNSPECIFIED SNOMED Code(s): 203032441 (2) LISSETTE (acute kidney injury) Current Visit: Yes Status: Acute Priority: High Code(s): N17.9 - ACUTE KIDNEY FAILURE, UNSPECIFIED SNOMED Code(s): 00129262 (3) Metastatic melanoma to liver Current Visit: Yes Status: Acute Code(s): C78.7 - SECONDARY MALIG NEOPLASM OF LIVER AND INTRAHEPATIC BILE DUCT SNOMED Code(s): 390800573 (4) UTI (urinary tract infection) Current Visit: Yes Status: Acute Code(s): N39.0 - URINARY TRACT INFECTION, SITE NOT SPECIFIED SNOMED Code(s): 96036307 (5) Hyponatremia Narrative/Plan: Nephrology following closely, repeat sodium this afternoon Anesthesia review chart and reportedly cleared patient to proceed upper endoscopy today with sodium level of 123 Current Visit: Yes Status: Acute Code(s): E87.1 - HYPO-OSMOLALITY AND HYPONATREMIA SNOMED Code(s): 58289699 Plan: 1. Continue symptomatic and supportive care 2. Continue with antiemetics 3. Continue with recommendations from nephrology 4. Protonix 40 mg twice daily 5. Patient rescheduled for upper endoscopy 6. Rest of medical management per primary medical team Thank you for this consultation, further recommendations forthcoming following upper endoscopy. Gastroenterology will sign off. Dr. Isma Bradley I agree with the dictator's note, documented as a scribe by Ann Norton.
[2025-03-14] MEDS ORDERED: PROPOFOL 10 MG/ML 20 ML VIAL IV ONE (15:58)
[2025-03-14] MEDS ORDERED: LIDOCAINE 1% INJ 10MG/ML (20 ML MDV) ONE (15:58)
[2025-03-14] MEDS: SODIUM CHLORIDE 0.9% 500 ML 500 ML IV ONE ×2 (16:13→16:20)
--- NOTE | 2025-03-14 16:17 | P.PCN ---
Date of Procedure: 03/14/25 Procedure(s) Performed: BRIEF HISTORY: Patient is a 55-year-old, pleasant, white female with history of metastatic malignant melanoma admitted to hospital 3 weeks ago with fatigue weakness and not feeling well. She has been having chronic intermittent nausea vomiting which has been progressively getting worse. Was diagnosed with hyponatremia/acute kidney injury.. PROCEDURE PERFORMED: Esophagogastroduodenoscopy with biopsy. PREOPERATIVE DIAGNOSIS: Chronic persistent nausea vomiting. IV sedation per anesthesia. PROCEDURE: After informed consent was obtained, the patient was brought into the endoscopy unit. IV sedation was administered by Anesthesia under continuous monitoring. Initially the Olympus GIF-140 video endoscope was inserted into the mouth. Esophagus intubated without any difficulty. It was gradually advanced into the stomach and duodenum and carefully examined. The bulb and the second part of the duodenum appeared normal. The scope at this time was withdrawn to the stomach, adequately insufflated with air, and upon careful examination, mucosa of the antrum had patchy areas of erythema consistent with gastritis. In the body stomach there were small gastric polyps noted. Rest of the, body, cardia and the fundus appeared normal. The scope was then withdrawn into the eso phagus. The GE junction was located at 39 cm from the incisors. The esophagus appeared normal. There were no erosions or ulcerations seen and the patient tolerated the procedure well. IMPRESSION: 1. Mild antral gastritis. 2. Small gastric polyps 3. No evidence of esophagitis or peptic ulcer disease. RECOMMENDATIONS: The findings of this examination were discussed with the patient. Continue with Protonix and antiemetics as needed. Advance diet as tolerated..
[2025-03-14 16:58] LABS: Glucose,Whole Blood 139 mg/dL (70-110)
--- NOTE | 2025-03-14 18:45 | P.PN ---
Subjective Progress Note Date: 03/14/25 No acute events overnight. Having persisting nausea/vomting. Plan for EGD today Hgb 7.2 today. Objective - Vital Signs Vital signs: Vital Signs Temp 97.7 F 03/14/25 16:43 Pulse 86 03/14/25 16:43 Resp 17 03/14/25 16:43 BP 119/73 03/14/25 16:43 Pulse Ox 96 03/14/25 16:43 FiO2 Intake & Output 03/13/25 03/14/25 03/14/25 18:59 06:59 18:59 Intake Total 250 100 Balance 250 100 Weight 147.5 kg Intake: IV 100 Oral 250 Other: Voiding Method Bedpan # Voids 4 4 3 - Constitutional General appearance: Present: no acute distress - EENT Eyes: Present: anicteric sclerae, EOMI ENT: Present: hearing grossly normal - Respiratory Details: breathing is even and unlabored - Cardiovascular Details: skin warm and dry - Integumentary Integumentary: Present: pale - Musculoskeletal Musculoskeletal: Present: generalized weakness - Psychiatric Psychiatric: Present: A&O x's 3 - Labs CBC & Chem 7: 03/14/25 05:02 03/14/25 14:23 Labs: Abnormal Lab Results - Last 24 Hours (Table) 03/13/25 03/13/25 03/14/25 Range/Units 20:09 21:00 05:02 WBC (4.50-10.00) 10*3/uL RBC (4.10-5.20) 10*6/uL Hgb (12.0-15.0) g/dL Hct (37.2-46.3) % MCHC (32.0-37.0) g/dL RDW (11.5-14.5) % Plt Count (140-440) 10*3/uL MPV (9.5-12.2) fL Immature Gran # (0.00-0.04) 10*3/uL Neutrophils # (1.80-7.70) 10*3/uL Lymphocytes # (0.90-5.00) 10*3/uL Eosinophils # (0.04-0.35) 10*3/uL Sodium 123 L (135-145) mmol/L Chloride 91 L (96-109) mmol/L Carbon Dioxide 19.7 L (21.6-31.8) mmol/L Anion Gap 12.30 H (4.00-12.00) mmol/L BUN 71.2 H (9.0-27.0) mg/dL Creatinine 1.8 H (0.6-1.5) mg/dL Est GFR (CKD-EPI) 32 L (>=60) BUN/Creatinine Ratio 39.56 H (12.00-20.00) Ratio Glucose 114 H (70-110) mg/dL POC Glucose (mg/dL) 179 H 159 H (70-110) mg/dL Calcium 8.2 L (8.7-10.3) mg/dL 03/14/25 03/14/25 03/14/25 Range/Units 05:02 06:19 11:48 WBC 12.69 H (4.50-10.00) 10*3/uL RBC 2.64 L (4.10-5.20) 10*6/uL Hgb 7.2 L (12.0-15.0) g/dL Hct 22.8 L (37.2-46.3) % MCHC 31.6 L (32.0-37.0) g/dL RDW 20.5 H (11.5-14.5) % Plt Count 588 H (140-440) 10*3/uL MPV 9.3 L (9.5-12.2) fL Immature Gran # 0.16 H (0.00-0.04) 10*3/uL Neutrophils # 10.55 H (1.80-7.70) 10*3/uL Lymphocytes # 0.80 L (0.90-5.00) 10*3/uL Eosinophils # 0.51 H (0.04-0.35) 10*3/uL Sodium (135-145) mmol/L Chloride (96-109) mmol/L Carbon Dioxide (21.6-31.8) mmol/L Anion Gap (4.00-12.00) mmol/L BUN (9.0-27.0) mg/dL Creatinine (0.6-1.5) mg/dL Est GFR (CKD-EPI) (>=60) BUN/Creatinine Ratio (12.00-20.00) Ratio Glucose (70-110) mg/dL POC Glucose (mg/dL) 145 H 154 H (70-110) mg/dL Calcium (8.7-10.3) mg/dL 03/14/25 03/14/25 Range/Units 14:23 16:57 WBC (4.50-10.00) 10*3/uL RBC (4.10-5.20) 10*6/uL Hgb (12.0-15.0) g/dL Hct (37.2-46.3) % MCHC (32.0-37.0) g/dL RDW (11.5-14.5) % Plt Count (140-440) 10*3/uL MPV (9.5-12.2) fL Immature Gran # (0.00-0.04) 10*3/uL Neutrophils # (1.80-7.70) 10*3/uL Lymphocytes # (0.90-5.00) 10*3/uL Eosinophils # (0.04-0.35) 10*3/uL Sodium 125 L (135-145) mmol/L Chloride (96-109) mmol/L Carbon Dioxide (21.6-31.8) mmol/L Anion Gap (4.00-12.00) mmol/L BUN (9.0-27.0) mg/dL Creatinine (0.6-1.5) mg/dL Est GFR (CKD-EPI) (>=60) BUN/Creatinine Ratio (12.00-20.00) Ratio Glucose (70-110) mg/dL POC Glucose (mg/dL) 139 H (70-110) mg/dL Calcium (8.7-10.3) mg/dL Assessment and Plan (1) LISSETTE (acute kidney injury) Current Visit: Yes Status: Acute Priority: High Code(s): N17.9 - ACUTE KIDNEY FAILURE, UNSPECIFIED SNOMED Code(s): 02227356 (2) Hyponatremia Current Visit: Yes Status: Acute Code(s): E87.1 - HYPO-OSMOLALITY AND HYPONATREMIA SNOMED Code(s): 96054828 (3) Sepsis Current Visit: Yes Status: Acute Code(s): A41.9 - SEPSIS, UNSPECIFIED ORGANISM SNOMED Code(s): 10207946 (4) Melanoma Current Visit: Yes Status: Acute Priority: High Code(s): C43.9 - MALIGNANT MELANOMA OF SKIN, UNSPECIFIED SNOMED Code(s): 942958703 Plan: Septic shock secondary to UTI -Improved with treatment of the same -ID following -Repeat urine and blood cultures due to leukocytosis on 02/27/2025 were negative Hyponatremia -Nephrology following. -Continues on supplementation Hematoma -CT AP/ reporting massive lymphadenopathy in the inguinal lymph nodes. Subcutaneous increased density present at the level of the iliac wings both medially and laterally. Nonspecific, possibly edema or contusions -Ultrasound 03/01/2025 showing fluid collection 5.3 x 5.1 x 1.3 cm. Gering to be a hematoma. -Hemoglobin has remained stable, in the 7 range since transfusions on 02/28 and 03/01 for hemoglobin in the 6 range. -Eliquis was resumed but discontinued for persistent hematuria-actually bleeding is more likely from malignant lesion in the perineal area. Pt has had [employer] work up a few months ago -Hgb has remained stable but can see a trend down. -Continue to monitor CBC -May repeat US to asses area concerning for hematoma N/V -Persistent despite multiple medications adjustments -MRI of the brain to rule out brain mets as an underlying cause. MRI results reviewed-no evidence for malignancy -GI consulted, plan for EGD today Metastatic melanoma - Received 3 cycles of Opdualag, last dose on 02/17/2025 - CT AP reported known metastases to the liver and abdominal/iliac lymphadenopat hy. This scan was also compared to scans obtained in November 2023. She had a PET CT prior to initiation of treatment that was performed at [facility] and was not used for comparison. Requesting report, not sure if we will be able to get a disc. Doctor attests: I performed a history and physical examination of this patient, developed impression and plan of care. Discussed with dictator. I agree with dictators note, documented as a scribe.
[2025-03-14 22:45] LABS: Glucose,Whole Blood 181 mg/dL (70-110)
--- NOTE | 2025-03-15 00:11 | P.PN ---
Subjective Progress Note Date: 03/14/25 Patient is a 55-year-old female with a past medical history of hypertension, hyperlipidemia, diabetes type 2 insulin-dependent, metastatic malignant melanoma with mets to liver and lymph nodes, depression, prior history of smoking, GERD and diabetic peripheral neuropathy and history of SVT, prior history of smoking. Patient presents to ER from Dr. Botello's office due to abnormal labs. Patient was also having generalized weakness. She was in the office for her third infusion. She had blood workup done yesterday which showed multiple abnormalities and was recommended to go to ER. She is also having generalized body pains. Also worsening shortness of breath. No chest pain. She does have decreased appetite and not eating well., No nausea no episodes of vomiting. EKG on admission showed sinus rhythm with heart rate 62 Chest x-ray showed no focal consolidation. Elevation of the right hemidiaphragm which is increased from prior exam. Consider sniff test to evaluate for diaphragmatic paralysis. Laboratory data showed WBC 26.7 hemoglobin 8.8 and platelets 634 MCV 75.3 Sodium 118, potassium 4.1 chloride 93 bicarb is 10 BUN 52 and creatinine 2.96, blood sugar 103 lactic acid 1.1 phosphorus 5.8 alk phos 241 proBNP 2350 lipase 441 Urinalysis showed light yellow turbid with large blood nitrite positive leukocyte esterase large elevated RBCs and WBCs. Influenza A B RSV and COVID-19 PCR not detected. 02/22/2025 Patient is in the MICU. Patient is requiring pressor support with Levophed. Resting in the bed. Awake alert and oriented. Currently on room air. Afebrile overnight. Denied any complaints of nausea vomiting abdominal pain or diarrhea. Lab data showed WBC trending down to 21.7 hemoglobin 8.2 and platelets 0.91 sodium improved to 121 potassium 4.5 chloride 101 bicarb is 6 BUN 54 and creatinine 2.72. Antibiotics were changed to cefazolin 2 g Q12. Nephrology and ID is on board. 02/24/2024 Patient is needing intensive care unit. Awake alert and oriented x 3. Currently on room air. Patient is off pressor support since 5 AM this morning. Sodium level improved to 127 today. Patient is on antibiotics in the form of cefepime. Urine culture showed Proteus Mirabella's. Laboratory data showed WBC 17.7 hemoglobin 7.4 and platelets 505 sodium 123 potassium 3.6 chloride 98 bicarb is 15 BUN 44 and creatinine 1.98, calcium 8.3. 02/24/2025 Patient is in MICU. Ureteric and ovarian x 3. Currently on room air. No complaints of chest pain or shortness of breath. Sodium level improved to 127 today. Patient is also been antibiotics for urinary tract infection with ceft riaxone. Urine culture growing Proteus mirabilis. Patient has been afebrile. Patient was given urea 15 g p.o. twice daily. Continued on insulin regimen. Laboratory test showed WBC 16.1 hemoglobin 7.3 and platelets 543 sodium 127 potassium 3.8 chloride 98 bicarb is 15 BUN 4020 creatinine 1.35 and blood sugar 82 magnesium 1.7 albumin 2.4. 02/25/2025 Patient is resting in the bed. Awake alert and oriented. No complaints of chest pain or shortness of breath. Tolerating oral diet. Patient is off IV fluids. He was started on urea and patient was also given Samsca. Sodium level is 126 today. Other laboratory data showed sodium 126 potassium 3.9 chloride 97 bicarb is 19 BUN 56 and creatinine 1.06 and blood sugar 125. Magnesium 1.9. Patient is getting ceftriaxone for urinary tract infection. 02/26 Patient lying in bed comfortable no chest pain or dyspnea No vomiting, she has average appetite No abdominal abdominal pain Patient has ongoing dysuria. 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 As per patient she was getting chemotherapy since November 2024. Her oncologist as outpatient is Dr. Botello. She had 3 cycles of chemotherapy so far. Her Cozaar Aldactone and metformin remain on hold 02/27 Clinically looks the same, awake and alert Main complaint is dysuria which is going on for 1.5 months which looks chronic related to her vaginal mass She is following up with hematology/oncology. Also she follow-up with the surgeon at [facility] with no plans for surgical intervention. 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 She has right foot boot on. She says she has fracture on November 26 and she is going to follow-up with her orthopedic in 1 to 2 weeks after discharge. No other new complaints Vital stable and afebrile. 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 Both of these lesions has progressed today She is developing more signs of infection with hypotension, leukocytosis went up to 19.6. Creatinine went up to 1.8, systolic blood pressure dropped from 140s down to 100 but slightly less. Patient thought secondary to have urinary tract infection and she is on ceftriaxone 2 g. Diflucan with loading dose added today. No respiratory symptoms no abdominal pain or diarrhea. No rash. No other source of infection She is also on Cardizem 120 and metoprolol 50 mg for A-fib. Also she is on Eliquis 2.5 mg. Hemoglobin dropped today to 6.6. With no evidence of bleeding. She is getting unit of blood transfusion. Posttransfusion Lasix was held because of borderline low blood pressure. After the blood pressure improved. Also she has CT of the abdomen and pelvis showing generalized lymphadenopathy and around the aorta and retrocaval as well as along the iliac chain Most likely related to her metastatic disease. There is evidence also of hepatic metastasis, hematology/oncology team on the case. Patient was informed with some of the CT findings as above 03/01 Patient is still feeling lethargic. She has large fullness with a bruise in the lower abdomen, she is morbidly obese and she has already pendulous abdomen, the area is standing in her. Possible bleeding. Hold Eliquis and check abdominal u ltrasound She is s/p 1 unit of blood transfusion yesterday, hemoglobin went up 6.6 up to 7.4. She is also on ceftriaxone and Diflucan for suspected UTI She is a known case of malignant melanoma with evidence of metastasis to the abdominal lymphadenopathy and liver. Today at bedside throughout the encounter 03/02 Patient today feels better She has pain at the hematoma site in the lower abdomen Hemoglobin was 7.77.3 and rechecked it was 8.3, she is status post blood transfusion yesterday for hemoglobin dropped to 6.8 No other new signs symptoms Eliquis dose was lowered from 5 down to 2.5 mg for her history of A-fib She remains on ceftriaxone and Diflucan yesterday still has leukocytosis about 21,000 Pulmonary service signed off the case today 03/03 Patient has nausea but no vomiting, she feels dyspepsia Pain in the lower abdomen slightly better per patient batch still operator and 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 She looks tired and fatigue Hemoglobin stable at 7.6, WBC down to 18,000 creatinine actually went down to 1.6 She is on ceftriaxone Diflucan, Eliquis 2.5 mg scheduled for renal dose and metoprolol 5 mg Patient advised about fluid restriction 03/04 Patient was with several year nausea vomiting yesterday controlled with scopolamine patch and Compazine and she needed another Compazine dose this morning because of vomiting but now controlled because of this we are going to discontinue scopolamine and keep monitoring Also she is hyponatremic 123 yesterday and low urine sodium, they were trying to get her up to the commode yesterday but she was very weak and her legs gave way and she has to be lowered to the ground, blood pressure was soft 90s over 40s. However this morning there is maybe some improvement with her blood pressure in the systolic reading is more than 100. She is feeling little bit stronger. And we checked her orthostatic vitals while lying and sitting up and they were negative. We will check another urine sodium today and serum sodium. And will decide if patient will need more IV bolus or IV fluids. Her Eliquis remains on hold, her lower abdominal hematoma is improving less discoloration and less pain/tenderness discussed with staff 03/05 Patient today feels better she is up in bed and she looks better and more energetic. Patient asking when she will be discharged home Her pain and bruise on the lower abdominal are stable and improving slowly and gradually. Still has vaginal symptoms but today she has less vaginal bleeding for the first time as she explains but has not stopped completely. Blood pressure above 100 which looks stable. Sodium slightly up 123 up to 124 and creatinine 1.6. Leukocyte count is coming down to 16,000 and hemoglobin down to 7.4 from 7.6 She remains on ceftriaxone and Diflucan. Eliquis remains on hold. She is still giving sodium bicarb tablets per nephrology team 03/06 Patient still feels stronger, she was to go home from yesterday Patient denies any other new symptoms. She has ongoing vaginal mass related to her melanoma with evidence of metastasis intra-abdominal the and into the lymph node. She has been treated with antibiotics. She finished her course yesterday we will keep monitoring. Currently she is afebrile. She has chronic leukocytosis. Also her labs are stable low sodium 124, creatinine improved down to 1.52. Hemoglobin is stable at 7.3 Eliquis remains on hold and her intra-abdominal wall hematoma is improving. Possible resume Eliquis upon discharge Sodium also stable creatinine improving, I discussed the case with Dr. Wood who cleared her for discharge today However patient was vomiting despite taking medication therefore we are going to monitor her today. Scopolamine patch and Benadryl was added Possible discharge in 24 to 48 hours if she keeps improved 03/07 Patient was doing well today Had nausea vomiting controlled with Benadryl helped as well She was cleared for discharge by all consultants. After discharge today, patient left on her way to the car she felt generally weak and she fell so she came back, Patient now requesting subacute rehab which is going to be early next week 03/08 Yesterday patient was discharged home. Originally she was evaluated by PT/OT recommended subacute rehab but patient declined Her nausea vomiting controlled and on her way out with her she could not move correctly from a standing position to this vehicle seat so she lost her balance and she has to be lowered to the ground but there is no actual fall with no head trauma or any other part per her body confirmed with her which is at bedside now She still complains from appetite is poor Patient denies vomiting as above no abdominal pain or worsening infection. She tolerates her diet little by little. Ultimately most likely patient will be discharged to rehab on Friday 03/09 Patient came back to the hospital after she discharge and fell on her way leaving the hospital Now she is pending placement to rehab She denies any other new complaint Eliquis was held about a week ago after she developed lower abdominal hematoma. Currently stable recommend to resume her Eliquis starting tomorrow 03/10/2025 Patient is seen and evaluated in follow-up today continuing to have dry heaves and multiple episodes of nausea with vomiting. Patient is taking a number of different antinausea medications with no relief with multiple consultations following including nephrology and oncology. White count remains elevated at 15.4, hemoglobin is 7.3, sodium remains low although stable at 125. Replace electrolytes per protocol. Patient is significantly weak and working on discharge planning possibly to ECF with case management following. Continue PT OT therapy notes. 03/11/2025 Patient is seen in follow-up today continues to have multiple episodes of vomiting with nausea and dry heaving with oncology following with concerns of possible lesion of the brain or metastasis and has ordered MRI of the brain. Patient is on multiple amounts of antinausea medication with no relief. Patient continues with significant weakness and unable to tolerate much diet not eating very well. Sodium continues to be low and was given a dose of Samsca today per nephrology will follow-up on repeat labs. Recommend physical therapy daily for continued strength and mobility. Patient may require ECF on discharge as patient has had prolonged hospitalization with multiple hospitalizations and progressively becoming more weak. Prognosis is guarded at this time. 03/12/2025 Patient is seen in follow-up this morning more awake today underwent MRI of the brain yesterday with no suggestions of lesions or metastatic disease noted. Patient continues to have continuous nausea with dry heaving and vomiting noted. Referral was placed to GI and appreciate input and recommendations. Possible endoscopy intervention being planned. Patient reports she was able to have a bowel movement today although unsure on exact consistency and if there was blood noted. Hemoglobin is 7.1 today. Recommend to continue monitoring closely. 03/13/2025 Patient is seen in follow-up this morning currently is n.p.o. as patient was scheduled to undergo EGD with GI services. No active GI bleeding noted at this time other than continued hematuria and Xarelto remains on hold. Hemoglobin is 7.6 and white count remains elevated at 13.4 maintained on antibiotics with infectious disease following. Patient sodium continues to drop with nephrology following status post Samsca with no improvement and is currently 123. Kidney function study going up and and creatinine is 1.6 with a BUN of 68.7. Will await GI evaluation. 03/14/2025 Patient remains n.p.o. and is scheduled to undergo EGD today with GI as she was scheduled to go undergo yesterday although concerns of hyponatremia. Nephrology is following and has been working on sodium levels and is 125 today. White count remains elevated although trending down at 12.69, hemoglobin is 7.2. Anticoagulation remains on hold and will await EGD report. Patient is afebrile with no reports of chest pain or shortness of breath at this time. Review of systems: Constitutional: reports of fatigue, no fever, or chills Cardiovascular: No reports of chest pain or palpitations Respiratory: No reports of shortness of breath or cough GI: reports of nausea, with continued dry heaves and vomiting : No reports of dysuria or retention Neurovascular: reports of weakness All medications have been reviewed Physical exam: GENERAL: The patient is asleep although easily arousable alert and oriented x3. Well developed, well nourished. Appears older than stated age, ill-appearing, morbidly obese HEENT: Pupils are round and equally reacting to light. EOMI. No scleral icterus. No conjunctival pallor. Normocephalic, atraumatic. No pharyngeal erythema. No thyromegaly. CARDIOVASCULAR: S1 and S2 present. No murmurs, rubs, or gallops. PULMONARY: Diminished breath sounds bilaterally otherwise chest is clear to auscultation, no wheezing , no crackles. ABDOMEN: Soft, obese, nontender, nondistended, normoactive bowel sounds. No palpable organomegaly. MUSCULOSKELETAL: No joint swelling or deformity. EXTREMITIES: No cyanosis, clubbing, or pedal edema. NEUROLOGICAL: Gross neurological examination did not reveal any focal deficits. Diffusely weak SKIN: No rashes. no petechiae. Assessment: Lower abdominal hematoma suspected with severe anemia required unit of blood transfusion on 03/01 Severe hyponatremia with sodium level 118 on admission-hypoosmolar hyponatremia due to decreased oral intake and LISSETTE. Stable at 125 today with no changes status post Samsca administration Acute kidney injury. Possible ATN. SIADH cannot be excluded due to underlying malignancy. Creatinine 2.96 on admission baseline 1.0 Fall outside the hospital with generalized weakness and difficulty ambulating Non-anion gap metabolic acidosis Acute urinary tract infection with Proteus Mirabellas Mild pancreatitis with lipase level 441, improved Malignant melanoma with mets to liver and lymph nodes, generalized intra-ab dominal lymphadenopathy and hepatic metastasis. On chemoinfusion and is on follow-up with oncology. Diabetes type 2 insulin-dependent Diabetic peripheral neuropathy History of SVT Paroxysmal atrial fibrillation Osteoarthritis Hypertension Hyperlipidemia GERD Depression Prior history of smoking Microcytic anemia rule out iron deficiency. Hemoglobin 8.8 on admission morbid obesity with a BMI of 48.8 GI prophylaxis DVT prophylaxis No code Plan: Continue with the current antiemetics and adjust medications as patient continues to have dry heaving and vomiting. Oncology following with concerns of possible lesion or metastasis to the brain and underwent MRI of the brain which was negative GI consulted and appreciate input and recommendations. Endoscopy is being vinay nned and is tentatively scheduled for today 03/14/2025 will await EGD report Recommend to continue with scheduled bowel regimen Continue holding Eliquis 2.5 mg, keep monitoring hemoglobin and the hematoma. Hemoglobin is stable above 7 at this time Patient to continue with antibiotic regimen per ID recommendations Monitor sodium level, nephrology following and sodium is 125, nephrology following and has provided Samsca Recommend PT/OT therapy evaluation with case management following and plan is to discharge to possible ECF for continued strength and mobility as patient fell attempting to leave the hospital on last admission and unable to get up. Patient has had frequent hospitalizations with prolonged hospitalization and is significantly weak from continued strength mobility The impression and plan of care has been dictated by Roselyn Rod, Nurse Practitioner as directed. Dr. Randy MD I have performed a history and examination and MDM of this patient, discussed th e same with the dictator, and agree with the dictator's assessment and plan as written ,documented as a scribe. Based on total visit time, I have performed more than 50% of the visit. Objective - Vital Signs Vital signs: Vital Signs Temp 97.8 F 03/14/25 07:00 Pulse 79 03/14/25 07:00 Resp 18 03/14/25 07:00 BP 107/68 03/14/25 07:00 Pulse Ox 98 03/14/25 07:00 FiO2 Intake & Output 03/13/25 03/14/25 03/14/25 18:59 06:59 18:59 Intake Total 250 Balance 250 Weight 147.5 kg Intake: Oral 250 Other: Voiding Method Bedpan # Voids 4 4 - Labs CBC & Chem 7: 03/14/25 05:02 03/14/25 14:23 Labs: Abnormal Lab Results - Last 24 Hours (Table) 03/13/25 03/13/25 03/13/25 Range/Units 04:59 11:31 12:26 WBC 13.40 H (4.50-10.00) 10*3/uL RBC 2.71 L (4.10-5.20) 10*6/uL Hgb 7.6 L (12.0-15.0) g/dL Hct 23.6 L (37.2-46.3) % MCHC (32.0-37.0) g/dL RDW 20.9 H (11.5-14.5) % Plt Count 611 H (140-440) 10*3/uL MPV 9.3 L (9.5-12.2) fL Immature Gran # 0.25 H (0.00-0.04) 10*3/uL Neutrophils # 11.08 H (1.80-7.70) 10*3/uL Lymphocytes # 0.89 L (0.90-5.00) 10*3/uL Eosinophils # 0.43 H (0.04-0.35) 10*3/uL PT 12.4 H (9.9-11.9) sec Sodium (135-145) mmol/L Chloride (96-109) mmol/L Carbon Dioxide (21.6-31.8) mmol/L Anion Gap (4.00-12.00) mmol/L BUN (9.0-27.0) mg/dL Creatinine (0.6-1.5) mg/dL Est GFR (CKD-EPI) (>=60) BUN/Creatinine Ratio (12.00-20.00) Ratio Glucose (70-110) mg/dL POC Glucose (mg/dL) 141 H (70-110) mg/dL Calcium (8.7-10.3) mg/dL 03/13/25 03/13/25 03/13/25 Range/Units 16:55 20:09 21:00 WBC (4.50-10.00) 10*3/uL RBC (4.10-5.20) 10*6/uL Hgb (12.0-15.0) g/dL Hct (37.2-46.3) % MCHC (32.0-37.0) g/dL RDW (11.5-14.5) % Plt Count (140-440) 10*3/uL MPV (9.5-12.2) fL Immature Gran # (0.00-0.04) 10*3/uL Neutrophils # (1.80-7.70) 10*3/uL Lymphocytes # (0.90-5.00) 10*3/uL Eosinophils # (0.04-0.35) 10*3/uL PT (9.9-11.9) sec Sodium (135-145) mmol/L Chloride (96-109) mmol/L Carbon Dioxide (21.6-31.8) mmol/L Anion Gap (4.00-12.00) mmol/L BUN (9.0-27.0) mg/dL Creatinine (0.6-1.5) mg/dL Est GFR (CKD-EPI) (>=60) BUN/Creatinine Ratio (12.00-20.00) Ratio Glucose (70-110) mg/dL POC Glucose (mg/dL) 147 H 179 H 159 H (70-110) mg/dL Calcium (8.7-10.3) mg/dL 03/14/25 03/14/25 03/14/25 Range/Units 05:02 05:02 06:19 WBC 12.69 H (4.50-10.00) 10*3/uL RBC 2.64 L (4.10-5.20) 10*6/uL Hgb 7.2 L (12.0-15.0) g/dL Hct 22.8 L (37.2-46.3) % MCHC 31.6 L (32.0-37.0) g/dL RDW 20.5 H (11.5-14.5) % Plt Count 588 H (140-440) 10*3/uL MPV 9.3 L (9.5-12.2) fL Immature Gran # 0.16 H (0.00-0.04) 10*3/uL Neutrophils # 10.55 H (1.80-7.70) 10*3/uL Lymphocytes # 0.80 L (0.90-5.00) 10*3/uL Eosinophils # 0.51 H (0.04-0.35) 10*3/uL PT (9.9-11.9) sec Sodium 123 L (135-145) mmol/L Chloride 91 L (96-109) mmol/L Carbon Dioxide 19.7 L (21.6-31.8) mmol/L Anion Gap 12.30 H (4.00-12.00) mmol/L BUN 71.2 H (9.0-27.0) mg/dL Creatinine 1.8 H (0.6-1.5) mg/dL Est GFR (CKD-EPI) 32 L (>=60) BUN/Creatinine Ratio 39.56 H (12.00-20.00) Ratio Glucose 114 H (70-110) mg/dL POC Glucose (mg/dL) 145 H (70-110) mg/dL Calcium 8.2 L (8.7-10.3) mg/dL
[2025-03-15 06:35] LABS: Glucose,Whole Blood 148 mg/dL (70-110)
[2025-03-15 10:34] LABS: Basophils # (A) 0.02 X 10*3/uL (0.00-0.10); Basophils % (A) 0.2 %; Eosinophils # (A) 0.41 X 10*3/uL (0.04-0.35); Eosinophils % (A) 3.2 %; HCT 23.8 % (37.2-46.3); HGB 7.1 g/dL (12.0-15.0); Lymphocytes # (A) 0.86 X 10*3/uL (0.90-5.00); Lymphocytes % (A) 6.7 %; MCH 26.5 pg (27.0-32.0); MCHC 29.8 g/dL (32.0-37.0); MCV 88.8 FL (80.0-97.0); Mean Platelet Volume 9.6 FL (9.5-12.2); Monocytes # (A) 0.64 X 10*3/uL (0.20-1.00); NRBC Per 100 WBC 0 X 10*3/uL (0.00-0.01); Neutrophils # (A) 10.68 X 10*3/uL (1.80-7.70); Neutrophils % (A) 83.5 %; Platelet Count 701 X 10*3/uL (140-440); RBC 2.68 X 10*6/uL (4.10-5.20); RDW 20.6 % (11.5-14.5); WBC 12.79 X 10*3/uL (4.50-10.00)
[2025-03-15 10:59] LABS: BUN/Creat Ratio 32.27 Ratio (12.00-20.00); Calcium 8.3 mg/dL (8.7-10.3); Carbon Dioxide 19.2 mmol/L (21.6-31.8); Chloride 92 mmol/L (96-109); Glucose 106 mg/dL (70-110); Sodium 124 mmol/L (135-145)
[2025-03-15 11:55] LABS: Glucose,Whole Blood 183 mg/dL (70-110)
--- NOTE | 2025-03-15 12:35 | P.PN ---
Subjective Patient is seen for follow-up for acute kidney injury and hyponatremia. Renal function slightly worse with serum creatinine at 2.2 today. Sodium is improved to 125 yesterday and is 124 today Nausea has improved. Status post IV Lasix yesterday Status post [facility] on 03/13/2025 Maintained on sodium chloride tabs and fluid restriction. Objective - Vital Signs Vital signs: Vital Signs Temp 97.8 F 03/15/25 07:20 Pulse 71 03/15/25 08:00 Resp 17 03/15/25 08:00 BP 102/68 03/15/25 07:20 Pulse Ox 98 03/15/25 07:20 FiO2 Intake & Output 03/14/25 03/15/25 03/15/25 18:59 06:59 18:59 Intake Total 100 780 Balance 100 780 Weight 144 kg Intake: IV 100 Oral 780 Other: Voiding Method Bedpan # Voids 3 2 1 - Exam Patient is awake, comfortable, no acute distress. Examination of the heart S1 and S2 Examination of the lungs bilateral breath sounds are heard Abdomen is soft obese Examination of lower extremities shows no significant edema - Labs CBC & Chem 7: 03/15/25 03:22 03/15/25 03:22 Labs: Abnormal Lab Results - Last 24 Hours (Table) 03/14/25 03/14/25 03/14/25 Range/Units 14:23 16:57 22:44 WBC (4.50-10.00) X 10*3/uL RBC (4.10-5.20) X 10*6/uL Hgb (12.0-15.0) g/dL Hct (37.2-46.3) % MCH (27.0-32.0) pg MCHC (32.0-37.0) g/dL RDW (11.5-14.5) % Plt Count (140-440) X 10*3/uL Immature Gran # (0.00-0.04) X 10*3/uL Neutrophils # (1.80-7.70) X 10*3/uL Lymphocytes # (0.90-5.00) X 10*3/uL Eosinophils # (0.04-0.35) X 10*3/uL Sodium 125 L (137-145) mmol/L Chloride (96-109) mmol/L Carbon Dioxide (21.6-31.8) mmol/L Anion Gap (4.00-12.00) mmol/L BUN (9.0-27.0) mg/dL Creatinine (0.6-1.5) mg/dL Est GFR (CKD-EPI) (>=60) BUN/Creatinine Ratio (12.00-20.00) Ratio POC Glucose (mg/dL) 139 H 181 H (70-110) mg/dL Calcium (8.7-10.3) mg/dL 03/15/25 03/15/25 03/15/25 Range/Units 03:22 03:22 06:33 WBC 12.79 H (4.50-10.00) X 10*3/uL RBC 2.68 L (4.10-5.20) X 10*6/uL Hgb 7.1 L (12.0-15.0) g/dL Hct 23.8 L (37.2-46.3) % MCH 26.5 L (27.0-32.0) pg MCHC 29.8 L (32.0-37.0) g/dL RDW 20.6 H (11.5-14.5) % Plt Count 701 H (140-440) X 10*3/uL Immature Gran # 0.18 H (0.00-0.04) X 10*3/uL Neutrophils # 10.68 H (1.80-7.70) X 10*3/uL Lymphocytes # 0.86 L (0.90-5.00) X 10*3/uL Eosinophils # 0.41 H (0.04-0.35) X 10*3/uL Sodium 124 L (137-145) mmol/L Chloride 92 L (96-109) mmol/L Carbon Dioxide 19.2 L (21.6-31.8) mmol/L Anion Gap 12.80 H (4.00-12.00) mmol/L BUN 71.0 H (9.0-27.0) mg/dL Creatinine 2.2 H (0.6-1.5) mg/dL Est GFR (CKD-EPI) 26 L (>=60) BUN/Creatinine Ratio 32.27 H (12.00-20.00) Ratio POC Glucose (mg/dL) 148 H (70-110) mg/dL Calcium 8.3 L (8.7-10.3) mg/dL 03/15/25 Range/Units 11:54 WBC (4.50-10.00) X 10*3/uL RBC (4.10-5.20) X 10*6/uL Hgb (12.0-15.0) g/dL Hct (37.2-46.3) % MCH (27.0-32.0) pg MCHC (32.0-37.0) g/dL RDW (11.5-14.5) % Plt Count (140-440) X 10*3/uL Immature Gran # (0.00-0.04) X 10*3/uL Neutrophils # (1.80-7.70) X 10*3/uL Lymphocytes # (0.90-5.00) X 10*3/uL Eosinophils # (0.04-0.35) X 10*3/uL Sodium (137-145) mmol/L Chloride (96-109) mmol/L Carbon Dioxide (21.6-31.8) mmol/L Anion Gap (4.00-12.00) mmol/L BUN (9.0-27.0) mg/dL Creatinine (0.6-1.5) mg/dL Est GFR (CKD-EPI) (>=60) BUN/Creatinine Ratio (12.00-20.00) Ratio POC Glucose (mg/dL) 183 H (70-110) mg/dL Calcium (8.7-10.3) mg/dL Assessment and Plan Assessment: 1. 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 Urine osmolality 252. Sodium 124. Maintained on sodium chloride tabs. [facility] Status post IV Lasix yesterday. Cortisol level not low. TSH normal. Urine osmolality 252. 2. Malignant melanoma with metastatic disease to liver and lymph nodes. 3. Acute kidney injury secondary to ATN secondary to severe sepsis. Baseline creatinine near 1 from December 2024. Creatinine 2.96 on admission and improved to 1.06 - worsened again due to acute blood loss anemia. Stabilized at 1.6 now. BUN disproportionately elevated from urea. 4. UTI on antibiotics. Urine culture positive for Proteus. 5. Metabolic acidosis secondary to acute kidney injury and IV fluids. Was also on metformin. On oral bicarb. 6. Diabetes mellitus. 7. Anemia. Iron deficiency noted. s/p IV iron. Having vaginal bleeding. Plan: Continue with sodium chloride tabs Continue fluid restriction Repeat labs in a.m. Continue midodrine Continue with oral sodium bicarb
--- NOTE | 2025-03-15 14:08 | P.PN ---
Subjective Progress Note Date: 03/15/25 Patient is a 55-year-old female with a past medical history of hypertension, hyperlipidemia, diabetes type 2 insulin-dependent, metastatic malignant melanoma with mets to liver and lymph nodes, depression, prior history of smoking, GERD and diabetic peripheral neuropathy and history of SVT, prior history of smoking. Patient presents to ER from Dr. Botello's office due to abnormal labs. Patient was also having generalized weakness. She was in the office for her third infusion. She had blood workup done yesterday which showed multiple abnormalities and was recommended to go to ER. She is also having generalized body pains. Also worsening shortness of breath. No chest pain. She does have decreased appetite and not eating well., No nausea no episodes of vomiting. EKG on admission showed sinus rhythm with heart rate 62 Chest x-ray showed no focal consolidation. Elevation of the right hemidiaphragm which is increased from prior exam. Consider sniff test to evaluate for diaphragmatic paralysis. Laboratory data showed WBC 26.7 hemoglobin 8.8 and platelets 634 MCV 75.3 Sodium 118, potassium 4.1 chloride 93 bicarb is 10 BUN 52 and creatinine 2.96, blood sugar 103 lactic acid 1.1 phosphorus 5.8 alk phos 241 proBNP 2350 lipase 441 Urinalysis showed light yellow turbid with large blood nitrite positive leukocyte esterase large elevated RBCs and WBCs. Influenza A B RSV and COVID-19 PCR not detected. 02/22/2025 Patient is in the MICU. Patient is requiring pressor support with Levophed. Resting in the bed. Awake alert and oriented. Currently on room air. Afebrile overnight. Denied any complaints of nausea vomiting abdominal pain or diarrhea. Lab data showed WBC trending down to 21.7 hemoglobin 8.2 and platelets 0.91 sodium improved to 121 potassium 4.5 chloride 101 bicarb is 6 BUN 54 and creatinine 2.72. Antibiotics were changed to cefazolin 2 g Q12. Nephrology and ID is on board. 02/24/2024 Patient is needing intensive care unit. Awake alert and oriented x 3. Currently on room air. Patient is off pressor support since 5 AM this morning. Sodium level improved to 127 today. Patient is on antibiotics in the form of cefepime. Urine culture showed Proteus Mirabella's. Laboratory data showed WBC 17.7 hemoglobin 7.4 and platelets 505 sodium 123 potassium 3.6 chloride 98 bicarb is 15 BUN 44 and creatinine 1.98, calcium 8.3. 02/24/2025 Patient is in MICU. Ureteric and ovarian x 3. Currently on room air. No complaints of chest pain or shortness of breath. Sodium level improved to 127 today. Patient is also been antibiotics for urinary tract infection with ceftriaxone. Urine culture growing Proteus mirabilis. Patient has been afebrile. Patient was given urea 15 g p.o. twice daily. Continued on insulin regimen. Laboratory test showed WBC 16.1 hemoglobin 7.3 and platelets 543 sodium 127 potassium 3.8 chloride 98 bicarb is 15 BUN 4020 creatinine 1.35 and blood sugar 82 magnesium 1.7 albumin 2.4. 02/25/2025 Patient is resting in the bed. Awake alert and oriented. No complaints of chest pain or shortness of breath. Tolerating oral diet. Patient is off IV fluids. He was started on urea and patient was also given Samsca. Sodium level is 126 today. Other laboratory data showed sodium 126 potassium 3.9 chloride 97 bicarb is 19 BUN 56 and creatinine 1.06 and blood sugar 125. Magnesium 1.9. Patient is getting ceftriaxone for urinary tract infection. 02/26 Patient lying in bed comfortable no chest pain or dyspnea No vomiting, she has average appetite No abdominal abdominal pain Patient has ongoing dysuria. 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 As per patient she was getting chemotherapy since November 2024. Her oncologist as outpatient is Dr. Botello. She had 3 cycles of chemotherapy so far. Her Cozaar Aldactone and metformin remain on hold 02/27 Clinically looks the same, awake and alert Main complaint is dysuria which is going on for 1.5 months which looks chronic related to her vaginal mass She is following up with hematology/oncology. Also she follow-up with the surgeon at [facility] with no plans for surgical intervention. 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 She has right foot boot on. She says she has fracture on November 26 and she is going to follow-up with her orthopedic in 1 to 2 weeks after discharge. No other new complaints Vital stable and afebrile. 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 Both of these lesions has progressed today She is developing more signs of infection with hypotension, leukocytosis went up to 19.6. Creatinine went up to 1.8, systolic blood pressure dropped from 140s down to 100 but slightly less. Patient thought secondary to have urinary tract infection and she is on ceftriaxone 2 g. Diflucan with loading dose added today. No respiratory symptoms no abdominal pain or diarrhea. No rash. No other source of infection She is also on Cardizem 120 and metoprolol 50 mg for A-fib. Also she is on Eliquis 2.5 mg. Hemoglobin dropped today to 6.6. With no evidence of bleeding. She is getting unit of blood transfusion. Posttransfusion Lasix was held because of borderline low blood pressure. After the blood pressure improved. Also she has CT of the abdomen and pelvis showing generalized lymphadenopathy and around the aorta and retrocaval as well as along the iliac chain Most likely related to her metastatic disease. There is evidence also of hepatic metastasis, hematology/oncology team on the case. Patient was informed with some of the CT findings as above 03/01 Patient is still feeling lethargic. She has large fullness with a bruise in the lower abdomen, she is morbidly obese and she has already pendulous abdomen, the area is standing in her. Possible bleeding. Hold Eliquis and check abdominal ultrasound She is s/p 1 unit of blood transfusion yesterday, hemoglobin went up 6.6 up to 7.4. She is also on ceftriaxone and Diflucan for suspected UTI She is a known case of malignant melanoma with evidence of metastasis to the abdominal lymphadenopathy and liver. Today at bedside throughout the encounter 03/02 Patient today feels better She has pain at the hematoma site in the lower abdomen Hemoglobin was 7.77.3 and rechecked it was 8.3, she is status post blood transfusion yesterday for hemoglobin dropped to 6.8 No other new signs symptoms Eliquis dose was lowered from 5 down to 2.5 mg for her history of A-fib She remains on ceftriaxone and Diflucan yesterday still has leukocytosis about 21,000 Pulmonary service signed off the case today 03/03 Patient has nausea but no vomiting, she feels dyspepsia Pain in the lower abdomen slightly better per patient batch still operator and 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 She looks tired and fatigue Hemoglobin stable at 7.6, WBC down to 18,000 creatinine actually went down to 1.6 She is on ceftriaxone Diflucan, Eliquis 2.5 mg scheduled for renal dose and metoprolol 5 mg Patient advised about fluid restriction 03/04 Patient was with several year nausea vomiting yesterday controlled with scopolamine patch and Compazine and she needed another Compazine dose this morning because of vomiting but now controlled because of this we are going to discontinue scopolamine and keep monitoring Also she is hyponatremic 123 yesterday and low urine sodium, they were trying to get her up to the commode yesterday but she was very weak and her legs gave way and she has to be lowered to the ground, blood pressure was soft 90s over 40s. However this morning there is maybe some improvement with her blood pressure in the systolic reading is more than 100. She is feeling little bit stronger. And we checked her orthostatic vitals while lying and sitting up and they were negative. We will check another urine sodium today and serum sodium. And will decide if patient will need more IV bolus or IV fluids. Her Eliquis remains on hold, her lower abdominal hematoma is improving less discoloration and less pain/tenderness discussed with staff 03/05 Patient today feels better she is up in bed and she looks better and more e nergetic. Patient asking when she will be discharged home Her pain and bruise on the lower abdominal are stable and improving slowly and gradually. Still has vaginal symptoms but today she has less vaginal bleeding for the first time as she explains but has not stopped completely. Blood pressure above 100 which looks stable. Sodium slightly up 123 up to 124 and creatinine 1.6. Leukocyte count is coming down to 16,000 and hemoglobin down to 7.4 from 7.6 She remains on ceftriaxone and Diflucan. Eliquis remains on hold. She is still giving sodium bicarb tablets per nephrology team 03/06 Patient still feels stronger, she was to go home from yesterday Patient denies any other new symptoms. She has ongoing vaginal mass related to her melanoma with evidence of metastasis intra-abdominal the and into the lymph node. She has been treated with antibiotics. She finished her course yesterday we will keep monitoring. Currently she is afebrile. She has chronic leukocytosis. Also her labs are stable low sodium 124, creatinine improved down to 1.52. Hemoglobin is stable at 7.3 Eliquis remains on hold and her intra-abdominal wall hematoma is improving. Possible resume Eliquis upon discharge Sodium also stable creatinine improving, I discussed the case with Dr. Wood who cleared her for discharge today However patient was vomiting despite taking medication therefore we are going to monitor her today. Scopolamine patch and Benadryl was added Possible discharge in 24 to 48 hours if she keeps improved 03/07 Patient was doing well today Had nausea vomiting controlled with Benadryl helped as well She was cleared for discharge by all consultants. After discharge today, patient left on her way to the car she felt generally weak and she fell so she came back, Patient now requesting subacute rehab which is going to be early next week 03/08 Yesterday patient was discharged home. Originally she was evaluated by PT/OT recommended subacute rehab but patient declined Her nausea vomiting controlled and on her way out with her she could not move correctly from a standing position to this vehicle seat so she lost her balance and she has to be lowered to the ground but there is no actual fall with no head trauma or any other part per her body confirmed with her which is at bedside now She still complains from appetite is poor Patient denies vomiting as above no abdominal pain or worsening infection. She tolerates her diet little by little. Ultimately most likely patient will be discharged to rehab on Friday 03/09 Patient came back to the hospital after she discharge and fell on her way leaving the hospital Now she is pending placement to rehab She denies any other new complaint Eliquis was held about a week ago after she developed lower abdominal hematoma. Currently stable recommend to resume her Eliquis starting tomorrow 03/10/2025 Patient is seen and evaluated in follow-up today continuing to have dry heaves and multiple episodes of nausea with vomiting. Patient is taking a number of different antinausea medications with no relief with multiple consultations following including nephrology and oncology. White count remains elevated at 15.4, hemoglobin is 7.3, sodium remains low although stable at 125. Replace electrolytes per protocol. Patient is significantly weak and working on discharge planning possibly to ECF with case management following. Continue PT OT therapy notes. 03/11/2025 Patient is seen in follow-up today continues to have multiple episodes of vomiting with nausea and dry heaving with oncology following with concerns of possible lesion of the brain or metastasis and has ordered MRI of the brain. Patient is on multiple amounts of antinausea medication with no relief. Patient continues with significant weakness and unable to tolerate much diet not eating very well. Sodium continues to be low and was given a dose of Samsca today per nephrology will follow-up on repeat labs. Recommend physical therapy daily for continued strength and mobility. Patient may require ECF on discharge as patient has had prolonged hospitalization with multiple hospitalizations and progressively becoming more weak. Prognosis is guarded at this time. 03/12/2025 Patient is seen in follow-up this morning more awake today underwent MRI of the brain yesterday with no suggestions of lesions or metastatic disease noted. Patient continues to have continuous nausea with dry heaving and vomiting noted. Referral was placed to GI and appreciate input and recommendations. Possible endoscopy intervention being planned. Patient reports she was able to have a bowel movement today although unsure on exact consistency and if there was blood noted. Hemoglobin is 7.1 today. Recommend to continue monitoring closely. 03/13/2025 Patient is seen in follow-up this morning currently is n.p.o. as patient was scheduled to undergo EGD with GI services. No active GI bleeding noted at this time other than continued hematuria and Xarelto remains on hold. Hemoglobin is 7.6 and white count remains elevated at 13.4 maintained on antibiotics with infectious disease following. Patient sodium continues to drop with nephrology following status post Samsca with no improvement and is currently 123. Kidney function study going up and and creatinine is 1.6 with a BUN of 68.7. Will await GI evaluation. 03/14/2025 Patient remains n.p.o. and is scheduled to undergo EGD today with GI as she was scheduled to go undergo yesterday although concerns of hyponatremia. Nephrology is following and has been working on sodium levels and is 125 today. White count remains elevated although trending down at 12.69, hemoglobin is 7.2. Anticoagulation remains on hold and will await EGD report. Patient is afebrile with no reports of chest pain or shortness of breath at this time. 03/15/2025 Patient underwent EGD yesterday with findings of antral gastritis. Nephrology following. Anticoagulation remains on hid. Patient continues to report abdomi nal pain and currently rating 7/10. Labs today reveal a white blood cell count of 12.79, hemoglobin 7.1, BUN of 71 creatinine of 2.2 and a sodium level of 124. Review of systems: Constitutional: reports of fatigue, no fever, or chills Cardiovascular: No reports of chest pain or palpitations Respiratory: No reports of shortness of breath or cough GI: reports of nausea, with continued dry heaves and vomiting : No reports of dysuria or retention Neurovascular: reports of weakness All medications have been reviewed Physical exam: GENERAL: The patient is asleep although easily arousable alert and oriented x3. Well developed, well nourished. Appears older than stated age, ill-appearing, morbidly obese HEENT: Pupils are round and equally reacting to light. EOMI. No scleral icterus. No conjunctival pallor. Normocephalic, atraumatic. No pharyngeal erythema. No thyromegaly. CARDIOVASCULAR: S1 and S2 present. No murmurs, rubs, or gallops. PULMONARY: Diminished breath sounds bilaterally otherwise chest is clear to auscultation, no wheezing , no crackles. ABDOMEN: Soft, obese, nontender, nondistended, normoactive bowel sounds. No palpable organomegaly. MUSCULOSKELETAL: No joint swelling or deformity. EXTREMITIES: No cyanosis, clubbing, or pedal edema. NEUROLOGICAL: Gross neurological examination did not reveal any focal deficits. Diffusely weak SKIN: No rashes. no petechiae. Assessment: Lower abdominal hematoma suspected with severe anemia required unit of blood transfusion on 03/01 Severe hyponatremia with sodium level 118 on admission-hypoosmolar hyponatremia due to decreased oral intake and LISSETTE. Stable at 125 today with no changes status post Samsca administration Acute kidney injury. Possible ATN. SIADH cannot be excluded due to underlying malignancy. Creatinine 2.96 on admission baseline 1.0 Fall outside the hospital with generalized weakness and difficulty ambulating Non-anion gap metabolic acidosis Acute urinary tract infection with Proteus Mirabellas Mild pancreatitis with lipase level 441, improved Malignant melanoma with mets to liver and lymph nodes, generalized intra- abdominal lymphadenopathy and hepatic metastasis. On chemoinfusion and is on follow-up with oncology. Diabetes type 2 insulin-dependent Diabetic peripheral neuropathy History of SVT Paroxysmal atrial fibrillation Osteoarthritis Hypertension Hyperlipidemia GERD Depression Prior history of smoking Microcytic anemia rule out iron deficiency. Hemoglobin 8.8 on admission morbid obesity with a BMI of 48.8 GI prophylaxis DVT prophylaxis No code Plan: Continue with the current antiemetics and adjust medications as patient continues to have dry heaving and vomiting. Oncology following with concerns of possible lesion or metastasis to the brain and underwent MRI of the brain which was negative GI consulted and appreciate input and recommendations. EGD reveals antral gastritis Recommend to continue with scheduled bowel regimen Continue holding Eliquis 2.5 mg, keep monitoring hemoglobin and the hematoma. Hemoglobin is stable above 7.1 at this time Patient to continue with antibiotic regimen per ID recommendations Monitor sodium level, nephrology following and sodium is 125, nephrology following and has provided Samsca Recommend PT/OT therapy evaluation with case management following and plan is to discharge to possible ECF for continued strength and mobility as patient fell attempting to leave the hospital on last admission and unable to get up. Patient has had frequent hospitalizations with prolonged hospitalization and is significantly weak from continued strength mobility The impression and plan of care has been dictated by Renetta Villalba, Nurse Practitioner as directed. Dr. Randy MD I have performed a history and physical examination and medical decision making of this patient, discussed the same with the dictator, and agree with the dictators assessment and plan as written, documented as a scribe. Based on total visit time, I have performed more than 50% of this visit. Objective - Vital Signs Vital signs: Vital Signs Temp 97.8 F 03/15/25 07:20 Pulse 71 03/15/25 08:00 Resp 17 03/15/25 08:00 BP 102/68 03/15/25 07:20 Pulse Ox 98 03/15/25 07:20 FiO2 Intake & Output 03/14/25 03/15/25 03/15/25 18:59 06:59 18:59 Intake Total 100 780 Balance 100 780 Weight 144 kg Intake: IV 100 Oral 780 Other: Voiding Method Bedpan # Voids 3 2 1 - Labs CBC & Chem 7: 03/15/25 03:22 03/15/25 03:22 Labs: Abnormal Lab Results - Last 24 Hours (Table) 03/14/25 03/14/25 03/14/25 Range/Units 14:23 16:57 22:44 WBC (4.50-10.00) X 10*3/uL RBC (4.10-5.20) X 10*6/uL Hgb (12.0-15.0) g/dL Hct (37.2-46.3) % MCH (27.0-32.0) pg MCHC (32.0-37.0) g/dL RDW (11.5-14.5) % Plt Count (140-440) X 10*3/uL Immature Gran # (0.00-0.04) X 10*3/uL Neutrophils # (1.80-7.70) X 10*3/uL Lymphocytes # (0.90-5.00) X 10*3/uL Eosinophils # (0.04-0.35) X 10*3/uL Sodium 125 L (137-145) mmol/L Chloride (96-109) mmol/L Carbon Dioxide (21.6-31.8) mmol/L Anion Gap (4.00-12.00) mmol/L BUN (9.0-27.0) mg/dL Creatinine (0.6-1.5) mg/dL Est GFR (CKD-EPI) (>=60) BUN/Creatinine Ratio (12.00-20.00) Ratio POC Glucose (mg/dL) 139 H 181 H (70-110) mg/dL Calcium (8.7-10.3) mg/dL 03/15/25 03/15/25 03/15/25 Range/Units 03:22 03:22 06:33 WBC 12.79 H (4.50-10.00) X 10*3/uL RBC 2.68 L (4.10-5.20) X 10*6/uL Hgb 7.1 L (12.0-15.0) g/dL Hct 23.8 L (37.2-46.3) % MCH 26.5 L (27.0-32.0) pg MCHC 29.8 L (32.0-37.0) g/dL RDW 20.6 H (11.5-14.5) % Plt Count 701 H (140-440) X 10*3/uL Immature Gran # 0.18 H (0.00-0.04) X 10*3/uL Neutrophils # 10.68 H (1.80-7.70) X 10*3/uL Lymphocytes # 0.86 L (0.90-5.00) X 10*3/uL Eosinophils # 0.41 H (0.04-0.35) X 10*3/uL Sodium 124 L (137-145) mmol/L Chloride 92 L (96-109) mmol/L Carbon Dioxide 19.2 L (21.6-31.8) mmol/L Anion Gap 12.80 H (4.00-12.00) mmol/L BUN 71.0 H (9.0-27.0) mg/dL Creatinine 2.2 H (0.6-1.5) mg/dL Est GFR (CKD-EPI) 26 L (>=60) BUN/Creatinine Ratio 32.27 H (12.00-20.00) Ratio POC Glucose (mg/dL) 148 H (70-110) mg/dL Calcium 8.3 L (8.7-10.3) mg/dL 03/15/25 Range/Units 11:54 WBC (4.50-10.00) X 10*3/uL RBC (4.10-5.20) X 10*6/uL Hgb (12.0-15.0) g/dL Hct (37.2-46.3) % MCH (27.0-32.0) pg MCHC (32.0-37.0) g/dL RDW (11.5-14.5) % Plt Count (140-440) X 10*3/uL Immature Gran # (0.00-0.04) X 10*3/uL Neutrophils # (1.80-7.70) X 10*3/uL Lymphocytes # (0.90-5.00) X 10*3/uL Eosinophils # (0.04-0.35) X 10*3/uL Sodium (137-145) mmol/L Chloride (96-109) mmol/L Carbon Dioxide (21.6-31.8) mmol/L Anion Gap (4.00-12.00) mmol/L BUN (9.0-27.0) mg/dL Creatinine (0.6-1.5) mg/dL Est GFR (CKD-EPI) (>=60) BUN/Creatinine Ratio (12.00-20.00) Ratio POC Glucose (mg/dL) 183 H (70-110) mg/dL Calcium (8.7-10.3) mg/dL Assessment and Plan Time with Patient: Less than 30
[2025-03-15 16:47] LABS: Glucose,Whole Blood 151 mg/dL (70-110)
[2025-03-15 20:33] LABS: Glucose,Whole Blood 217 mg/dL (70-110)
[2025-03-16 06:25] LABS: Glucose,Whole Blood 188 mg/dL (70-110)
[2025-03-16 10:02] LABS: Basophils # (A) 0.02 X 10*3/uL (0.00-0.10); Basophils % (A) 0.1 %; Eosinophils # (A) 0.49 X 10*3/uL (0.04-0.35); Eosinophils % (A) 3.5 %; HCT 24.6 % (37.2-46.3); HGB 7.5 g/dL (12.0-15.0); Lymphocytes # (A) 0.77 X 10*3/uL (0.90-5.00); Lymphocytes % (A) 5.6 %; MCH 26.7 pg (27.0-32.0); MCHC 30.5 g/dL (32.0-37.0); MCV 87.5 FL (80.0-97.0); Mean Platelet Volume 9.7 FL (9.5-12.2); Monocytes # (A) 0.62 X 10*3/uL (0.20-1.00); Monocytes % (A) 4.5 %; NRBC Per 100 WBC 0.02 X 10*3/uL (0.00-0.01); Neutrophils # (A) 11.77 X 10*3/uL (1.80-7.70); Neutrophils % (A) 84.9 %; Platelet Count 684 X 10*3/uL (140-440); RBC 2.81 X 10*6/uL (4.10-5.20); RDW 19.9 % (11.5-14.5); WBC 13.86 X 10*3/uL (4.50-10.00)
[2025-03-16 10:24] LABS: BUN/Creat Ratio 28.76 Ratio (12.00-20.00); Blood Urea Nitrogen 71.9 mg/dL (9.0-27.0); Carbon Dioxide 19.3 mmol/L (21.6-31.8); Chloride 90 mmol/L (96-109); Glucose 152 mg/dL (70-110); Magnesium 1.9 mg/dL (1.5-2.4); Potassium 4.7 mmol/L (3.5-5.5); Sodium 122 mmol/L (135-145)
[2025-03-16 10:25] LABS: Calcium 8.2 mg/dL (8.7-10.3)
--- NOTE | 2025-03-16 10:34 | P.PN ---
Subjective Patient is seen for follow-up for acute kidney injury and hyponatremia. Renal function slightly worse with serum creatinine at 2.5 today. Sodium is 122 today Nausea persists on and off Status post Samsca on 03/13/2025 Maintained on sodium chloride tabs and fluid restriction. Objective - Vital Signs Vital signs: Vital Signs Temp 97.9 F 03/16/25 07:44 Pulse 77 03/16/25 07:44 Resp 17 03/16/25 07:44 BP 96/62 03/16/25 07:44 Pulse Ox 96 03/16/25 07:44 FiO2 Intake & Output 03/15/25 03/16/25 03/16/25 18:59 06:59 18:59 Intake Total 540 Balance 540 Intake: Oral 540 Other: Voiding Method Bedpan # Voids 3 1 - Exam Patient is awake, comfortable, no acute distress. Examination of the heart S1 and S2 Examination of the lungs bilateral breath sounds are heard Abdomen is soft obese Examination of lower extremities shows no significant edema - Labs CBC & Chem 7: 03/16/25 05:56 03/16/25 05:56 Labs: Abnormal Lab Results - Last 24 Hours (Table) 03/15/25 03/15/25 03/15/25 Range/Units 03:22 03:22 11:54 WBC 12.79 H (4.50-10.00) X 10*3/uL RBC 2.68 L (4.10-5.20) X 10*6/uL Hgb 7.1 L (12.0-15.0) g/dL Hct 23.8 L (37.2-46.3) % MCH 26.5 L (27.0-32.0) pg MCHC 29.8 L (32.0-37.0) g/dL RDW 20.6 H (11.5-14.5) % Plt Count 701 H (140-440) X 10*3/uL Immature Gran # 0.18 H (0.00-0.04) X 10*3/uL Neutrophils # 10.68 H (1.80-7.70) X 10*3/uL Lymphocytes # 0.86 L (0.90-5.00) X 10*3/uL Eosinophils # 0.41 H (0.04-0.35) X 10*3/uL NRBC/100 WBC Diff (0.00-0.01) X 10*3/uL Sodium 124 L (135-145) mmol/L Chloride 92 L (96-109) mmol/L Carbon Dioxide 19.2 L (21.6-31.8) mmol/L Anion Gap 12.80 H (4.00-12.00) mmol/L BUN 71.0 H (9.0-27.0) mg/dL Creatinine 2.2 H (0.6-1.5) mg/dL Est GFR (CKD-EPI) 26 L (>=60) BUN/Creatinine Ratio 32.27 H (12.00-20.00) Ratio Glucose (70-110) mg/dL POC Glucose (mg/dL) 183 H (70-110) mg/dL Calcium 8.3 L (8.7-10.3) mg/dL 03/15/25 03/15/25 03/16/25 Range/Units 16:46 20:31 05:56 WBC 13.86 H (4.50-10.00) X 10*3/uL RBC 2.81 L (4.10-5.20) X 10*6/uL Hgb 7.5 L (12.0-15.0) g/dL Hct 24.6 L (37.2-46.3) % MCH 26.7 L (27.0-32.0) pg MCHC 30.5 L (32.0-37.0) g/dL RDW 19.9 H (11.5-14.5) % Plt Count 684 H (140-440) X 10*3/uL Immature Gran # 0.19 H (0.00-0.04) X 10*3/uL Neutrophils # 11.77 H (1.80-7.70) X 10*3/uL Lymphocytes # 0.77 L (0.90-5.00) X 10*3/uL Eosinophils # 0.49 H (0.04-0.35) X 10*3/uL NRBC/100 WBC Diff 0.02 H (0.00-0.01) X 10*3/uL Sodium (135-145) mmol/L Chloride (96-109) mmol/L Carbon Dioxide (21.6-31.8) mmol/L Anion Gap (4.00-12.00) mmol/L BUN (9.0-27.0) mg/dL Creatinine (0.6-1.5) mg/dL Est GFR (CKD-EPI) (>=60) BUN/Creatinine Ratio (12.00-20.00) Ratio Glucose (70-110) mg/dL POC Glucose (mg/dL) 151 H 217 H (70-110) mg/dL Calcium (8.7-10.3) mg/dL 03/16/25 03/16/25 Range/Units 05:56 06:24 WBC (4.50-10.00) X 10*3/uL RBC (4.10-5.20) X 10*6/uL Hgb (12.0-15.0) g/dL Hct (37.2-46.3) % MCH (27.0-32.0) pg MCHC (32.0-37.0) g/dL RDW (11.5-14.5) % Plt Count (140-440) X 10*3/uL Immature Gran # (0.00-0.04) X 10*3/uL Neutrophils # (1.80-7.70) X 10*3/uL Lymphocytes # (0.90-5.00) X 10*3/uL Eosinophils # (0.04-0.35) X 10*3/uL NRBC/100 WBC Diff (0.00-0.01) X 10*3/uL Sodium 122 L (135-145) mmol/L Chloride 90 L (96-109) mmol/L Carbon Dioxide 19.3 L (21.6-31.8) mmol/L Anion Gap 12.70 H (4.00-12.00) mmol/L BUN 71.9 H (9.0-27.0) mg/dL Creatinine 2.5 H (0.6-1.5) mg/dL Est GFR (CKD-EPI) 22 L (>=60) BUN/Creatinine Ratio 28.76 H (12.00-20.00) Ratio Glucose 152 H (70-110) mg/dL POC Glucose (mg/dL) 188 H (70-110) mg/dL Calcium 8.2 L (8.7-10.3) mg/dL Assessment and Plan Assessment: 1. 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 Urine osmolality 252. Sodium 124. Maintained on sodium chloride tabs. Status post Samsca on 03/13/2025. Status post IV Lasix on 03/14/2025. Cortisol level not low. TSH normal. Urine osmolality 252. 2. Malignant melanoma with metastatic disease to liver and lymph nodes. 3. Acute kidney injury secondary to ATN secondary to severe sepsis. Baseline creatinine near 1 from December 2024. Creatinine 2.96 on admission and improved to 1.06 - worsened again due to acute blood loss anemia. Stabilized at 1.6 now. BUN disproportionately elevated from urea. 4. UTI on antibiotics. Urine culture positive for Proteus. 5. Metabolic acidosis secondary to acute kidney injury and IV fluids. Was also on metformin. On oral bicarb. 6. Diabetes mellitus. 7. Anemia. Iron deficiency noted. s/p IV iron. Having vaginal bleeding. Plan: Repeat Samsca today Continue with sodium chloride tabs Continue fluid restriction Repeat labs in a.m. Continue midodrine Continue with oral sodium bicarb
[2025-03-16 12:17] LABS: Glucose,Whole Blood 140 mg/dL (70-110)
[2025-03-16] MEDS: TOLVAPTAN 30 MG TABLET PO ONE (14:03)
[2025-03-16 16:47] LABS: Glucose,Whole Blood 126 mg/dL (70-110)
[2025-03-16 20:30] LABS: Glucose,Whole Blood 167 mg/dL (70-110)
--- NOTE | 2025-03-16 23:32 | P.PN ---
Subjective Progress Note Date: 03/16/25 Patient is a 55-year-old female with a past medical history of hypertension, hyperlipidemia, diabetes type 2 insulin-dependent, metastatic malignant melanoma with mets to liver and lymph nodes, depression, prior history of smoking, GERD and diabetic peripheral neuropathy and history of SVT, prior history of smoking. Patient presents to ER from Dr. Botello's office due to abnormal labs. Patient was also having generalized weakness. She was in the office for her third infusion. She had blood workup done yesterday which showed multiple abnormalities and was recommended to go to ER. She is also having generalized body pains. Also worsening shortness of breath. No chest pain. She does have decreased appetite and not eating well., No nausea no episodes of vomiting. EKG on admission showed sinus rhythm with heart rate 62 Chest x-ray showed no focal consolidation. Elevation of the right hemidiaphragm which is increased from prior exam. Consider sniff test to evaluate for diaphragmatic paralysis. Laboratory data showed WBC 26.7 hemoglobin 8.8 and platelets 634 MCV 75.3 Sodium 118, potassium 4.1 chloride 93 bicarb is 10 BUN 52 and creatinine 2.96, blood sugar 103 lactic acid 1.1 phosphorus 5.8 alk phos 241 proBNP 2350 lipase 441 Urinalysis showed light yellow turbid with large blood nitrite positive leukocyte esterase large elevated RBCs and WBCs. Influenza A B RSV and COVID-19 PCR not detected. 02/22/2025 Patient is in the MICU. Patient is requiring pressor support with Levophed. Resting in the bed. Awake alert and oriented. Currently on room air. Afebrile overnight. Denied any complaints of nausea vomiting abdominal pain or diarrhea. Lab data showed WBC trending down to 21.7 hemoglobin 8.2 and platelets 0.91 sodium improved to 121 potassium 4.5 chloride 101 bicarb is 6 BUN 54 and creatinine 2.72. Antibiotics were changed to cefazolin 2 g Q12. Nephrology and ID is on board. 02/24/2024 Patient is needing intensive care unit. Awake alert and oriented x 3. Currently on room air. Patient is off pressor support since 5 AM this morning. Sodium level improved to 127 today. Patient is on antibiotics in the form of cefepime. Urine culture showed Proteus Mirabella's. Laboratory data showed WBC 17.7 hemoglobin 7.4 and platelets 505 sodium 123 potassium 3.6 chloride 98 bicarb is 15 BUN 44 and creatinine 1.98, calcium 8.3. 02/24/2025 Patient is in MICU. Ureteric and ovarian x 3. Currently on room air. No complaints of chest pain or shortness of breath. Sodium level improved to 127 today. Patient is also been antibiotics for urinary tract infection with ceftriaxone. Urine culture growing Proteus mirabilis. Patient has been afebrile. Patient was given urea 15 g p.o. twice daily. Continued on insulin regimen. Laboratory test showed WBC 16.1 hemoglobin 7.3 and platelets 543 sodium 127 potassium 3.8 chloride 98 bicarb is 15 BUN 4020 creatinine 1.35 and blood sugar 82 magnesium 1.7 albumin 2.4. 02/25/2025 Patient is resting in the bed. Awake alert and oriented. No complaints of chest pain or shortness of breath. Tolerating oral diet. Patient is off IV fluids. He was started on urea and patient was also given Samsca. Sodium level is 126 today. Other laboratory data showed sodium 126 potassium 3.9 chloride 97 bicarb is 19 BUN 56 and creatinine 1.06 and blood sugar 125. Magnesium 1.9. Patient is getting ceftriaxone for urinary tract infection. 02/26 Patient lying in bed comfortable no chest pain or dyspnea No vomiting, she has average appetite No abdominal abdominal pain Patient has ongoing dysuria. 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 As per patient she was getting chemotherapy since November 2024. Her oncologist as outpatient is Dr. Botello. She had 3 cycles of chemotherapy so far. Her Cozaar Aldactone and metformin remain on hold 02/27 Clinically looks the same, awake and alert Main complaint is dysuria which is going on for 1.5 months which looks chronic related to her vaginal mass She is following up with hematology/oncology. Also she follow-up with the surgeon at [facility] with no plans for surgical intervention. 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 She has right foot boot on. She says she has fracture on November 26 and she is going to follow-up with her orthopedic in 1 to 2 weeks after discharge. No other new complaints Vital stable and afebrile. 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 Both of these lesions has progressed today She is developing more signs of infection with hypotension, leukocytosis went up to 19.6. Creatinine went up to 1.8, systolic blood pressure dropped from 140s down to 100 but slightly less. Patient thought secondary to have urinary tract infection and she is on ceftriaxone 2 g. Diflucan with loading dose added today. No respiratory symptoms no abdominal pain or diarrhea. No rash. No other source of infection She is also on Cardizem 120 and metoprolol 50 mg for A-fib. Also she is on Eliquis 2.5 mg. Hemoglobin dropped today to 6.6. With no evidence of bleeding. She is getting unit of blood transfusion. Posttransfusion Lasix was held because of borderline low blood pressure. After the blood pressure improved. Also she has CT of the abdomen and pelvis showing generalized lymphadenopathy and around the aorta and retrocaval as well as along the iliac chain Most likely related to her metastatic disease. There is evidence also of hepatic metastasis, hematology/oncology team on the case. Patient was informed with some of the CT findings as above 03/01 Patient is still feeling lethargic. She has large fullness with a bruise in the lower abdomen, she is morbidly obese and she has already pendulous abdomen, the area is standing in her. Possible bleeding. Hold Eliquis and check abdominal ultrasound She is s/p 1 unit of blood transfusion yesterday, hemoglobin went up 6.6 up to 7.4. She is also on ceftriaxone and Diflucan for suspected UTI She is a known case of malignant melanoma with evidence of metastasis to the abdominal lymphadenopathy and liver. Today at bedside throughout the encounter 03/02 Patient today feels better She has pain at the hematoma site in the lower abdomen Hemoglobin was 7.77.3 and rechecked it was 8.3, she is status post blood transfusion yesterday for hemoglobin dropped to 6.8 No other new signs symptoms Eliquis dose was lowered from 5 down to 2.5 mg for her history of A-fib She remains on ceftriaxone and Diflucan yesterday still has leukocytosis about 21,000 Pulmonary service signed off the case today 03/03 Patient has nausea but no vomiting, she feels dyspepsia Pain in the lower abdomen slightly better per patient plasterer tender and 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 She looks tired and fatigue Hemoglobin stable at 7.6, WBC down to 18,000 creatinine actually went down to 1.6 She is on ceftriaxone Diflucan, Eliquis 2.5 mg scheduled for renal dose and metoprolol 5 mg Patient advised about fluid restriction 03/04 Patient was with several year nausea vomiting yesterday controlled with scopolamine patch and Compazine and she needed another Compazine dose this morning because of vomiting but now controlled because of this we are going to discontinue scopolamine and keep monitoring Also she is hyponatremic 123 yesterday and low urine sodium, they were trying to get her up to the commode yesterday but she was very weak and her legs gave way and she has to be lowered to the ground, blood pressure was soft 90s over 40s. However this morning there is maybe some improvement with her blood pressure in the systolic reading is more than 100. She is feeling little bit stronger. And we checked her orthostatic vitals while lying and sitting up and they were negative. We will check another urine sodium today and serum sodium. And will decide if patient will need more IV bolus or IV fluids. Her Eliquis remains on hold, her lower abdominal hematoma is improving less discoloration and less pain/tenderness discussed with staff 03/05 Patient today feels better she is up in bed and she looks better and more e nergetic. Patient asking when she will be discharged home Her pain and bruise on the lower abdominal are stable and improving slowly and gradually. Still has vaginal symptoms but today she has less vaginal bleeding for the first time as she explains but has not stopped completely. Blood pressure above 100 which looks stable. Sodium slightly up 123 up to 124 and creatinine 1.6. Leukocyte count is coming down to 16,000 and hemoglobin down to 7.4 from 7.6 She remains on ceftriaxone and Diflucan. Eliquis remains on hold. She is still giving sodium bicarb tablets per nephrology team 03/06 Patient still feels stronger, she was to go home from yesterday Patient denies any other new symptoms. She has ongoing vaginal mass related to her melanoma with evidence of metastasis intra-abdominal the and into the lymph node. She has been treated with antibiotics. She finished her course yesterday we will keep monitoring. Currently she is afebrile. She has chronic leukocytosis. Also her labs are stable low sodium 124, creatinine improved down to 1.52. Hemoglobin is stable at 7.3 Eliquis remains on hold and her intra-abdominal wall hematoma is improving. Possible resume Eliquis upon discharge Sodium also stable creatinine improving, I discussed the case with Dr. Wood who cleared her for discharge today However patient was vomiting despite taking medication therefore we are going to monitor her today. Scopolamine patch and Benadryl was added Possible discharge in 24 to 48 hours if she keeps improved 03/07 Patient was doing well today Had nausea vomiting controlled with Benadryl helped as well She was cleared for discharge by all consultants. After discharge today, patient left on her way to the car she felt generally weak and she fell so she came back, Patient now requesting subacute rehab which is going to be early next week 03/08 Yesterday patient was discharged home. Originally she was evaluated by PT/OT recommended subacute rehab but patient declined Her nausea vomiting controlled and on her way out with her she could not move correctly from a standing position to this vehicle seat so she lost her balance and she has to be lowered to the ground but there is no actual fall with no head trauma or any other part per her body confirmed with her which is at bedside now She still complains from appetite is poor Patient denies vomiting as above no abdominal pain or worsening infection. She tolerates her diet little by little. Ultimately most likely patient will be discharged to rehab on Friday 03/09 Patient came back to the hospital after she discharge and fell on her way leaving the hospital Now she is pending placement to rehab She denies any other new complaint Eliquis was held about a week ago after she developed lower abdominal hematoma. Currently stable recommend to resume her Eliquis starting tomorrow 03/10/2025 Patient is seen and evaluated in follow-up today continuing to have dry heaves and multiple episodes of nausea with vomiting. Patient is taking a number of different antinausea medications with no relief with multiple consultations following including nephrology and oncology. White count remains elevated at 15.4, hemoglobin is 7.3, sodium remains low although stable at 125. Replace electrolytes per protocol. Patient is significantly weak and working on discharge planning possibly to ECF with case management following. Continue PT OT therapy notes. 03/11/2025 Patient is seen in follow-up today continues to have multiple episodes of vomiting with nausea and dry heaving with oncology following with concerns of possible lesion of the brain or metastasis and has ordered MRI of the brain. Patient is on multiple amounts of antinausea medication with no relief. Patient continues with significant weakness and unable to tolerate much diet not eating very well. Sodium continues to be low and was given a dose of Samsca today per nephrology will follow-up on repeat labs. Recommend physical therapy daily for continued strength and mobility. Patient may require ECF on discharge as patient has had prolonged hospitalization with multiple hospitalizations and progressively becoming more weak. Prognosis is guarded at this time. 03/12/2025 Patient is seen in follow-up this morning more awake today underwent MRI of the brain yesterday with no suggestions of lesions or metastatic disease noted. Patient continues to have continuous nausea with dry heaving and vomiting noted. Referral was placed to GI and appreciate input and recommendations. Possible endoscopy intervention being planned. Patient reports she was able to have a bowel movement today although unsure on exact consistency and if there was blood noted. Hemoglobin is 7.1 today. Recommend to continue monitoring closely. 03/13/2025 Patient is seen in follow-up this morning currently is n.p.o. as patient was scheduled to undergo EGD with GI services. No active GI bleeding noted at this time other than continued hematuria and Xarelto remains on hold. Hemoglobin is 7.6 and white count remains elevated at 13.4 maintained on antibiotics with infectious disease following. Patient sodium continues to drop with nephrology following status post Samsca with no improvement and is currently 123. Kidney function study going up and and creatinine is 1.6 with a BUN of 68.7. Will await GI evaluation. 03/14/2025 Patient remains n.p.o. and is scheduled to undergo EGD today with GI as she was scheduled to go undergo yesterday although concerns of hyponatremia. Nephrology is following and has been working on sodium levels and is 125 today. White count remains elevated although trending down at 12.69, hemoglobin is 7.2. Anticoagulation remains on hold and will await EGD report. Patient is afebrile with no reports of chest pain or shortness of breath at this time. 03/15/2025 Patient underwent EGD yesterday with findings of antral gastritis. Nephrology following. Anticoagulation remains on hid. Patient continues to report abdomi nal pain and currently rating 7/10. Labs today reveal a white blood cell count of 12.79, hemoglobin 7.1, BUN of 71 creatinine of 2.2 and a sodium level of 124. 03/16/2025 Patient evaluated in follow up on the medical floor. Resting comfortably. Has been continued liquid diet, requesting more solid foods today. Hemoglobin 7.5. Sodium 122, BUN 71.9, creatinine 2.5. Recommend to monitor closely for urinary retention. Review of systems: Constitutional: reports of fatigue, no fever, or chills Cardiovascular: No reports of chest pain or palpitations Respiratory: No reports of shortness of breath or cough GI: reports of nausea, with continued dry heaves and vomiting : No reports of dysuria or retention Neurovascular: reports of weakness All medications have been reviewed Physical exam: GENERAL: The patient is asleep although easily arousable alert and oriented x3. Well developed, well nourished. Appears older than stated age, ill-appearing, morbidly obese HEENT: Pupils are round and equally reacting to light. EOMI. No scleral icterus. No conjunctival pallor. Normocephalic, atraumatic. No pharyngeal erythema. No thyromegaly. CARDIOVASCULAR: S1 and S2 present. No murmurs, rubs, or gallops. PULMONARY: Diminished breath sounds bilaterally otherwise chest is clear to auscultation, no wheezing , no crackles. ABDOMEN: Soft, obese, nontender, nondistended, normoactive bowel sounds. No palpable organomegaly. MUSCULOSKELETAL: No joint swelling or deformity. EXTREMITIES: No cyanosis, clubbing, or pedal edema. NEUROLOGICAL: Gross neurological examination did not reveal any focal deficits. Diffusely weak SKIN: No rashes. no petechiae. Assessment: Lower abdominal hematoma suspected with severe anemia required unit of blood transfusion on 03/01 Severe hyponatremia with sodium level 118 on admission-hypoosmolar hyponatremia due to decreased oral intake and LISSETTE. status post Samsca administration Acute kidney injury. Possible ATN. SIADH cannot be excluded due to underlying malignancy. Creatinine 2.96 on admission baseline 1.0 Fall outside the hospital with generalized weakness and difficulty ambulating Non-anion gap metabolic acidosis Acute urinary tract infection with Proteus Mirabellas Mild pancreatitis with lipase level 441, improved Malignant melanoma with mets to liver and lymph nodes, generalized intra- abdominal lymphadenopathy and hepatic metastasis. On chemoinfusion and is on follow-up with oncology. Bleeding from malignant perianal lesion Diabetes type 2 insulin-dependent Diabetic peripheral neuropathy History of SVT Paroxysmal atrial fibrillation Osteoarthritis Hypertension Hyperlipidemia GERD Depression Prior history of smoking Microcytic anemia with iron deficiency. Hemoglobin 8.8 on admission morbid obesity with a BMI of 48.8 GI prophylaxis DVT prophylaxis No code Plan: Continue with the current antiemetics and adjust medications as patient continues to have dry heaving and vomiting. Oncology following with concerns of possible lesion or metastasis to the brain and underwent MRI of the brain which was negative GI consulted and appreciate input and recommendations. EGD reveals antral gastritis continue with protonix daily Recommend to continue with scheduled bowel regimen Continue holding Eliquis 2.5 mg, keep monitoring hemoglobin and the hematoma. Hemoglobin is stable above 7.5 at this time Patient to continue with antibiotic regimen per ID recommendations Monitor sodium level, nephrology following and sodium is 125, nephrology following, samsca x 1 given today Patient continues on sodium chloride tab and fluid restriction Recommend PT/OT therapy evaluation with case management following and plan is to discharge to possible ECF for continued strength and mobility as patient fell attempting to leave the hospital on last admission and unable to get up. Patient has had frequent hospitalizations with prolonged hospitalization and is significantly weak from continued strength mobility The impression and plan of care has been dictated by Renetta Villalba, Nurse Practitioner as directed. Dr. Randy MD I have performed a history and physical examination and medical decision making of this patient, discussed the same with the dictator, and agree with the dictators assessment and plan as written, documented as a scribe. Based on total visit time, I have performed more than 50% of this visit. Objective - Vital Signs Vital signs: Vital Signs Temp 97.9 F 03/16/25 00:39 Pulse 81 03/16/25 00:39 Resp 14 03/16/25 00:39 BP 107/69 03/16/25 00:39 Pulse Ox 99 03/16/25 00:39 FiO2 Intake & Output 03/15/25 03/16/25 03/16/25 18:59 06:59 18:59 Intake Total 540 Balance 540 Intake: Oral 540 Other: Voiding Method Bedpan # Voids 3 1 - Labs CBC & Chem 7: 03/16/25 05:56 03/16/25 05:56 Labs: Abnormal Lab Results - Last 24 Hours (Table) 03/15/25 03/15/25 03/15/25 Range/Units 03:22 03:22 11:54 WBC 12.79 H (4.50-10.00) X 10*3/uL RBC 2.68 L (4.10-5.20) X 10*6/uL Hgb 7.1 L (12.0-15.0) g/dL Hct 23.8 L (37.2-46.3) % MCH 26.5 L (27.0-32.0) pg MCHC 29.8 L (32.0-37.0) g/dL RDW 20.6 H (11.5-14.5) % Plt Count 701 H (140-440) X 10*3/uL Immature Gran # 0.18 H (0.00-0.04) X 10*3/uL Neutrophils # 10.68 H (1.80-7.70) X 10*3/uL Lymphocytes # 0.86 L (0.90-5.00) X 10*3/uL Eosinophils # 0.41 H (0.04-0.35) X 10*3/uL Sodium 124 L (135-145) mmol/L Chloride 92 L (96-109) mmol/L Carbon Dioxide 19.2 L (21.6-31.8) mmol/L Anion Gap 12.80 H (4.00-12.00) mmol/L BUN 71.0 H (9.0-27.0) mg/dL Creatinine 2.2 H (0.6-1.5) mg/dL Est GFR (CKD-EPI) 26 L (>=60) BUN/Creatinine Ratio 32.27 H (12.00-20.00) Ratio POC Glucose (mg/dL) 183 H (70-110) mg/dL Calcium 8.3 L (8.7-10.3) mg/dL 03/15/25 03/15/25 03/16/25 Range/Units 16:46 20:31 06:24 WBC (4.50-10.00) X 10*3/uL RBC (4.10-5.20) X 10*6/uL Hgb (12.0-15.0) g/dL Hct (37.2-46.3) % MCH (27.0-32.0) pg MCHC (32.0-37.0) g/dL RDW (11.5-14.5) % Plt Count (140-440) X 10*3/uL Immature Gran # (0.00-0.04) X 10*3/uL Neutrophils # (1.80-7.70) X 10*3/uL Lymphocytes # (0.90-5.00) X 10*3/uL Eosinophils # (0.04-0.35) X 10*3/uL Sodium (135-145) mmol/L Chloride (96-109) mmol/L Carbon Dioxide (21.6-31.8) mmol/L Anion Gap (4.00-12.00) mmol/L BUN (9.0-27.0) mg/dL Creatinine (0.6-1.5) mg/dL Est GFR (CKD-EPI) (>=60) BUN/Creatinine Ratio (12.00-20.00) Ratio POC Glucose (mg/dL) 151 H 217 H 188 H (70-110) mg/dL Calcium (8.7-10.3) mg/dL Assessment and Plan Time with Patient: Less than 30
[2025-03-17 06:22] LABS: Glucose,Whole Blood 143 mg/dL (70-110)
[2025-03-17 08:17] LABS: BUN/Creat Ratio 29.24 Ratio (12.00-20.00); Blood Urea Nitrogen 73.1 mg/dL (9.0-27.0); Carbon Dioxide 17.5 mmol/L (21.6-31.8); Chloride 90 mmol/L (96-109); Glucose 97 mg/dL (70-110); Potassium 4.9 mmol/L (3.5-5.5); Sodium 121 mmol/L (135-145)
[2025-03-17 08:31] LABS: Basophils # (A) 0.02 X 10*3/uL (0.00-0.10); Basophils % (A) 0.1 %; Eosinophils % (A) 3.6 %; HCT 24.2 % (37.2-46.3); HGB 7.4 g/dL (12.0-15.0); Lymphocytes % (A) 4.3 %; MCHC 30.6 g/dL (32.0-37.0); MCV 88.3 FL (80.0-97.0); Mean Platelet Volume 9.9 FL (9.5-12.2); Monocytes # (A) 0.61 X 10*3/uL (0.20-1.00); Monocytes % (A) 4.4 %; NRBC Per 100 WBC 0.02 X 10*3/uL (0.00-0.01); Platelet Count 624 X 10*3/uL (140-440); RBC 2.74 X 10*6/uL (4.10-5.20); RDW 19.9 % (11.5-14.5); WBC 13.85 X 10*3/uL (4.50-10.00)
[2025-03-17 11:28] LABS: Glucose,Whole Blood 153 mg/dL (70-110)
--- NOTE | 2025-03-17 12:45 | P.PN ---
Subjective Patient is seen for follow-up for acute kidney injury and hyponatremia. Renal function slightly worse over the last 2 days with creatinine stable at 2.5 today Sodium is 121 today Nausea persists on and off Status post Samsca yesterday Maintained on sodium chloride tabs and fluid restriction. Objective - Vital Signs Vital signs: Vital Signs Temp 98.2 F 03/17/25 07:22 Pulse 73 03/17/25 07:22 Resp 18 03/17/25 07:22 BP 110/70 03/17/25 07:22 Pulse Ox 97 03/17/25 07:22 FiO2 Intake & Output 03/16/25 03/17/25 03/17/25 18:59 06:59 18:59 Intake Total 360 240 Balance 360 240 Intake: IV 360 0.9 360 Oral 240 Other: Voiding Method Bedpan Bedpan Diaper # Voids 1 - Exam Patient is awake, comfortable, no acute distress. Examination of the heart S1 and S2 Examination of the lungs bilateral breath sounds are heard Abdomen is soft obese Examination of lower extremities shows edema 1+, right more than left - Labs CBC & Chem 7: 03/17/25 02:49 03/17/25 02:49 Labs: Abnormal Lab Results - Last 24 Hours (Table) 03/16/25 03/16/25 03/17/25 Range/Units 16:45 20:29 02:49 WBC 13.85 H (4.50-10.00) X 10*3/uL RBC 2.74 L (4.10-5.20) X 10*6/uL Hgb 7.4 L (12.0-15.0) g/dL Hct 24.2 L (37.2-46.3) % MCHC 30.6 L (32.0-37.0) g/dL RDW 19.9 H (11.5-14.5) % Plt Count 624 H (140-440) X 10*3/uL Immature Gran # 0.22 H (0.00-0.04) X 10*3/uL Neutrophils # 11.90 H (1.80-7.70) X 10*3/uL Lymphocytes # 0.60 L (0.90-5.00) X 10*3/uL Eosinophils # 0.50 H (0.04-0.35) X 10*3/uL NRBC/100 WBC Diff 0.02 H (0.00-0.01) X 10*3/uL Sodium (135-145) mmol/L Chloride (96-109) mmol/L Carbon Dioxide (21.6-31.8) mmol/L Anion Gap (4.00-12.00) mmol/L BUN (9.0-27.0) mg/dL Creatinine (0.6-1.5) mg/dL Est GFR (CKD-EPI) (>=60) BUN/Creatinine Ratio (12.00-20.00) Ratio POC Glucose (mg/dL) 126 H 167 H (70-110) mg/dL Calcium (8.7-10.3) mg/dL 03/17/25 03/17/25 03/17/25 Range/Units 02:49 06:21 11:26 WBC (4.50-10.00) X 10*3/uL RBC (4.10-5.20) X 10*6/uL Hgb (12.0-15.0) g/dL Hct (37.2-46.3) % MCHC (32.0-37.0) g/dL RDW (11.5-14.5) % Plt Count (140-440) X 10*3/uL Immature Gran # (0.00-0.04) X 10*3/uL Neutrophils # (1.80-7.70) X 10*3/uL Lymphocytes # (0.90-5.00) X 10*3/uL Eosinophils # (0.04-0.35) X 10*3/uL NRBC/100 WBC Diff (0.00-0.01) X 10*3/uL Sodium 121 L (135-145) mmol/L Chloride 90 L (96-109) mmol/L Carbon Dioxide 17.5 L (21.6-31.8) mmol/L Anion Gap 13.50 H (4.00-12.00) mmol/L BUN 73.1 H (9.0-27.0) mg/dL Creatinine 2.5 H (0.6-1.5) mg/dL Est GFR (CKD-EPI) 22 L (>=60) BUN/Creatinine Ratio 29.24 H (12.00-20.00) Ratio POC Glucose (mg/dL) 143 H 153 H (70-110) mg/dL Calcium 8.0 L (8.7-10.3) mg/dL Assessment and Plan Assessment: 1. 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 Urine osmolality 252. Sodium 124. Maintained on sodium chloride tabs. Status post Samsca on 03/16/2025. Status post IV Lasix on 03/14/2025. Cortisol level not low. TSH normal. Urine osmolality 252. 2. Malignant melanoma with metastatic disease to liver and lymph nodes. 3. Acute kidney injury secondary to ATN secondary to severe sepsis. Baseline creatinine near 1 from December 2024. Creatinine 2.96 on admission and improved to 1.06 - worsened again due to acute blood loss anemia. Stabilized at 1.6 now. BUN disproportionately elevated from urea. 4. UTI on antibiotics. Urine culture positive for Proteus. 5. Metabolic acidosis secondary to acute kidney injury and IV fluids. Was also on metformin. On oral bicarb. 6. Diabetes mellitus. 7. Anemia. Iron deficiency noted. s/p IV iron. Having vaginal bleeding. Plan: Repeat sodium later on today IV Lasix if not improved further. Continue with sodium chloride tabs Continue fluid restriction Continue midodrine Continue with oral sodium bicarb, increase dose
[2025-03-17] MEDS: diazePAM 2 MG TAB PO SCH (14:16)
--- NOTE | 2025-03-17 14:28 | P.PN ---
Subjective Progress Note Date: 03/17/25 Principal diagnosis: UTI, LISSETTE. Metastatic melanoma Patient seen today for follow-up. She has had the MRI of the brain, no metastatic disease. She has had an EGD done with some mild gastritis and some polyps that have been biopsied, pending pathology. She is still having vomit ing, dry heaves though, not as much today as when I have seen her in the past. is at the bedside today. It is reported today by patient's that pain is part of the reason why patient is not moving around. Review of the medication administration record shows that patient is using Dilaudid about every 6 hours. It is reported by nursing staff that Dilaudid also makes patient sick to her stomach. All of the narcotics are causing patient to be sick to her stomach. No new complaints Objective - Vital Signs Vital signs: Vital Signs Temp 98.2 F 03/17/25 07:22 Pulse 73 03/17/25 07:22 Resp 18 03/17/25 07:22 BP 110/70 03/17/25 07:22 Pulse Ox 97 03/17/25 07:22 FiO2 Intake & Output 03/16/25 03/17/25 03/17/25 18:59 06:59 18:59 Intake Total 360 240 Balance 360 240 Intake: IV 360 0.9 360 Oral 240 Other: Voiding Method Bedpan Bedpan Diaper # Voids 1 - Constitutional General appearance: Present: cooperative, morbidly obese - EENT Eyes: Present: anicteric sclerae, EOMI ENT: Present: hearing grossly normal - Respiratory Respiratory: bilateral: CTA - Cardiovascular Rhythm: regular - Gastrointestinal General gastrointestinal: Present: soft - Integumentary Integumentary: Present: pale - Neurologic Neurologic: Present: CNII-XII intact - Musculoskeletal Musculoskeletal: Present: generalized weakness, strength equal bilaterally - Psychiatric Psychiatric: Present: A&O x's 3, appropriate affect, intact judgment & insight - Labs CBC & Chem 7: 03/17/25 02:49 03/17/25 02:49 Labs: Abnormal Lab Results - Last 24 Hours (Table) 03/16/25 03/16/25 03/17/25 Range/Units 16:45 20:29 02:49 WBC 13.85 H (4.50-10.00) X 10*3/uL RBC 2.74 L (4.10-5.20) X 10*6/uL Hgb 7.4 L (12.0-15.0) g/dL Hct 24.2 L (37.2-46.3) % MCHC 30.6 L (32.0-37.0) g/dL RDW 19.9 H (11.5-14.5) % Plt Count 624 H (140-440) X 10*3/uL Immature Gran # 0.22 H (0.00-0.04) X 10*3/uL Neutrophils # 11.90 H (1.80-7.70) X 10*3/uL Lymphocytes # 0.60 L (0.90-5.00) X 10*3/uL Eosinophils # 0.50 H (0.04-0.35) X 10*3/uL NRBC/100 WBC Diff 0.02 H (0.00-0.01) X 10*3/uL Sodium (135-145) mmol/L Chloride (96-109) mmol/L Carbon Dioxide (21.6-31.8) mmol/L Anion Gap (4.00-12.00) mmol/L BUN (9.0-27.0) mg/dL Creatinine (0.6-1.5) mg/dL Est GFR (CKD-EPI) (>=60) BUN/Creatinine Ratio (12.00-20.00) Ratio POC Glucose (mg/dL) 126 H 167 H (70-110) mg/dL Calcium (8.7-10.3) mg/dL 03/17/25 03/17/25 03/17/25 Range/Units 02:49 06:21 11:26 WBC (4.50-10.00) X 10*3/uL RBC (4.10-5.20) X 10*6/uL Hgb (12.0-15.0) g/dL Hct (37.2-46.3) % MCHC (32.0-37.0) g/dL RDW (11.5-14.5) % Plt Count (140-440) X 10*3/uL Immature Gran # (0.00-0.04) X 10*3/uL Neutrophils # (1.80-7.70) X 10*3/uL Lymphocytes # (0.90-5.00) X 10*3/uL Eosinophils # (0.04-0.35) X 10*3/uL NRBC/100 WBC Diff (0.00-0.01) X 10*3/uL Sodium 121 L (135-145) mmol/L Chloride 90 L (96-109) mmol/L Carbon Dioxide 17.5 L (21.6-31.8) mmol/L Anion Gap 13.50 H (4.00-12.00) mmol/L BUN 73.1 H (9.0-27.0) mg/dL Creatinine 2.5 H (0.6-1.5) mg/dL Est GFR (CKD-EPI) 22 L (>=60) BUN/Creatinine Ratio 29.24 H (12.00-20.00) Ratio POC Glucose (mg/dL) 143 H 153 H (70-110) mg/dL Calcium 8.0 L (8.7-10.3) mg/dL - Imaging and Cardiology Procedure note for EGD reviewed Assessment and Plan (1) LISSETTE (acute kidney injury) Current Visit: Yes Status: Acute Priority: High Code(s): N17.9 - ACUTE KIDNEY FAILURE, UNSPECIFIED SNOMED Code(s): 61487574 (2) Hematoma Current Visit: Yes Status: Acute Priority: Medium Code(s): T14.8XXA - OTHER INJURY OF UNSPECIFIED BODY REGION, INITIAL ENCOUNTER SNOMED Code(s): 537800207 (3) Melanoma Current Visit: Yes Status: Acute Priority: High Code(s): C43.9 - MALIGNANT MELANOMA OF SKIN, UNSPECIFIED SNOMED Code(s): 008580033 Plan: Septic shock secondary to UTI -Admitted for the same. -ID following, Antibiotics completed -Repeat urine and blood cultures due to leukocytosis on 02/27/2025 were negative Hyponatremia -Nephrology following. Hematoma -CT reporting massive lymphadenopathy in the inguinal lymph nodes. Subcutaneous increased density present at the level of the iliac wings both medially and laterally. Nonspecific, possibly edema or contusions -Ultrasound 03/01/2025 showing fluid collection 5.3 x 5.1 x 1.3 cm. Fisk to be a hematoma. -Hemoglobin has remained stable, in the 7 range since transfusions on 02/28 and 03/01 for hemoglobin in the 6 range. -Eliquis was resumed but discontinued for persistent hematuria-actually bleeding is more likely from malignant lesion in the perineal area. Pt has had [employer] work up a few mo ago -Hgb has remained stable but can see a trend down. -CBC in AM -US to asses area concerning for hematoma-suspect malignant mass vs hematoma N/V -Persistent despite multiple medications adjustments -MRI of the brain to rule out brain mets as an underlying cause. MRI results reviewed-no evidence for malignancy -EGD procedure note reporting mild antral gastritis, some gastric polyps, pending biopsy -No identifiable cause for intractable N, V, dry heaves. Random episodes, no pattern. -Added valium today for anticipatory nausea and vomiting to see if that could help - at bedside concerned that pt is not eating or drinking-he is just taking the supplements home, pt is not consuming them. Requested Dietitian to return and see how diet can be modified or different supplement used. Metastatic melanoma - Received 3 cycles of Opdualag, last dose on 02/17/2025 - CT AP reported known metastases to the liver and abdominal/iliac lymphadenopathy. This scan was also compared to scans obtained in November 2023. She had a PET CT prior to initiation of treatment that [place] [facility] used for comparison. STILL waiting for that report from [facility]. Doctor attests: I performed a history and physical examination of this patient, developed impression and plan of care. Discussed with dictator. I agree with dictators note, documented as a scribe.
--- NOTE | 2025-03-17 15:04 | US ---
EXAMINATION TYPE: US abdomen limited DATE OF EXAM: 03/17/2025 COMPARISON: US 03/01/2025 CLINICAL INDICATION: Female, 55 years old with history of re-assess hematoma; Hematoma reassessment. Patient states she had multiple falls. TECHNIQUE: Grayscale and color Doppler images were acquired at the patients area of bruising at the lower right abdomen/pelvis. FINDINGS: Area of concern demonstrates extensive swelling and bruising. Multiple nonvascular fluid c ollections visualized measuring up to 3.3 cm. IMPRESSION: More well-defined fluid channels and simple appearing small fluid locules measuring up t o 3.3 cm in the region of concern on the right. Possibly small organizing hematomas in the setting of extensive bruising. Clinically correlate. Consider follow-up to assess for changes compared to the carmen payton's 02/27/2025 [facility], , 03/17/2025 3:02 PM
[2025-03-17] MEDS: SODIUM BICARBONATE TAB 650 MG TAB PO SCH (16:24)
[2025-03-17 16:25] LABS: Glucose,Whole Blood 158 mg/dL (70-110)
--- NOTE | 2025-03-17 17:39 | P.PN ---
Subjective Progress Note Date: 03/17/25 Patient is a 55-year-old female with a past medical history of hypertension, hyperlipidemia, diabetes type 2 insulin-dependent, metastatic malignant melanoma with mets to liver and lymph nodes, depression, prior history of smoking, GERD and diabetic peripheral neuropathy and history of SVT, prior history of smoking. Patient presents to ER from Dr. Botello's office due to abnormal labs. Patient was also having generalized weakness. She was in the office for her third infusion. She had blood workup done yesterday which showed multiple abnormalities and was recommended to go to ER. She is also having generalized body pains. Also worsening shortness of breath. No chest pain. She does have decreased appetite and not eating well., No nausea no episodes of vomiting. EKG on admission showed sinus rhythm with heart rate 62 Chest x-ray showed no focal consolidation. Elevation of the right hemidiaphragm which is increased from prior exam. Consider sniff test to evaluate for diaphragmatic paralysis. Laboratory data showed WBC 26.7 hemoglobin 8.8 and platelets 634 MCV 75.3 Sodium 118, potassium 4.1 chloride 93 bicarb is 10 BUN 52 and creatinine 2.96, blood sugar 103 lactic acid 1.1 phosphorus 5.8 alk phos 241 proBNP 2350 lipase 441 Urinalysis showed light yellow turbid with large blood nitrite positive leukocyte esterase large elevated RBCs and WBCs. Influenza A B RSV and COVID-19 PCR not detected. 02/22/2025 Patient is in the MICU. Patient is requiring pressor support with Levophed. Resting in the bed. Awake alert and oriented. Currently on room air. Afebrile overnight. Denied any complaints of nausea vomiting abdominal pain or diarrhea. Lab data showed WBC trending down to 21.7 hemoglobin 8.2 and platelets 0.91 sodium improved to 121 potassium 4.5 chloride 101 bicarb is 6 BUN 54 and creatinine 2.72. Antibiotics were changed to cefazolin 2 g Q12. Nephrology and ID is on board. 02/24/2024 Patient is needing intensive care unit. Awake alert and oriented x 3. Currently on room air. Patient is off pressor support since 5 AM this morning. Sodium level improved to 127 today. Patient is on antibiotics in the form of cefepime. Urine culture showed Proteus Mirabella's. Laboratory data showed WBC 17.7 hemoglobin 7.4 and platelets 505 sodium 123 potassium 3.6 chloride 98 bicarb is 15 BUN 44 and creatinine 1.98, calcium 8.3. 02/24/2025 Patient is in MICU. Ureteric and ovarian x 3. Currently on room air. No complaints of chest pain or shortness of breath. Sodium level improved to 127 today. Patient is also been antibiotics for urinary tract infection with ceftriaxone. Urine culture growing Proteus mirabilis. Patient has been afebrile. Patient was given urea 15 g p.o. twice daily. Continued on insulin regimen. Laboratory test showed WBC 16.1 hemoglobin 7.3 and platelets 543 sodium 127 potassium 3.8 chloride 98 bicarb is 15 BUN 4020 creatinine 1.35 and blood sugar 82 magnesium 1.7 albumin 2.4. 02/25/2025 Patient is resting in the bed. Awake alert and oriented. No complaints of chest pain or shortness of breath. Tolerating oral diet. Patient is off IV fluids. He was started on urea and patient was also given Samsca. Sodium level is 126 today. Other laboratory data showed sodium 126 potassium 3.9 chloride 97 bicarb is 19 BUN 56 and creatinine 1.06 and blood sugar 125. Magnesium 1.9. Patient is getting ceftriaxone for urinary tract infection. 02/26 Patient lying in bed comfortable no chest pain or dyspnea No vomiting, she has average appetite No abdominal abdominal pain Patient has ongoing dysuria. 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 As per patient she was getting chemotherapy since November 2024. Her oncologist as outpatient is Dr. Botello. She had 3 cycles of chemotherapy so far. Her Cozaar Aldactone and metformin remain on hold 02/27 Clinically looks the same, awake and alert Main complaint is dysuria which is going on for 1.5 months which looks chronic related to her vaginal mass She is following up with hematology/oncology. Also she follow-up with the surgeon at [facility] with no plans for surgical intervention. Also patient confirms to me that she follow-up with program production specialist in [place]. She has right foot boot on. She says she has fracture on November 26 and she is going to follow-up with her orthopedic in 1 to 2 weeks after discharge. No other new complaints Vital stable and afebrile. 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 Both of these lesions has progressed today She is developing more signs of infection with hypotension, leukocytosis went up to 19.6. Creatinine went up to 1.8, systolic blood pressure dropped from 140s down to 100 but slightly less. Patient thought secondary to have urinary tract infection and she is on ceftriaxone 2 g. Diflucan with loading dose added today. No respiratory symptoms no abdominal pain or diarrhea. No rash. No other source of infection She is also on Cardizem 120 and metoprolol 50 mg for A-fib. Also she is on Eliquis 2.5 mg. Hemoglobin dropped today to 6.6. With no evidence of bleeding. She is getting unit of blood transfusion. Posttransfusion Lasix was held because of borderline low blood pressure. After the blood pressure improved. Also she has CT of the abdomen and pelvis showing generalized lymphadenopathy and around the aorta and retrocaval as well as along the iliac chain Most likely related to her metastatic disease. There is evidence also of hepatic metastasis, hematology/oncology team on the case. Patient was informed with some of the CT findings as above 03/01 Patient is still feeling lethargic. She has large fullness with a bruise in the lower abdomen, she is morbidly obese and she has already pendulous abdomen, the area is standing in her. Possible bleeding. Hold Eliquis and check abdominal ultrasound She is s/p 1 unit of blood transfusion yesterday, hemoglobin went up 6.6 up to 7.4. She is also on ceftriaxone and Diflucan for suspected UTI She is a known case of malignant melanoma with evidence of metastasis to the abdominal lymphadenopathy and liver. 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 She looks tired and fatigue Hemoglobin stable at 7.6, WBC down to 18,000 creatinine actually went down to 1.6 She is on ceftriaxone Diflucan, Eliquis 2.5 mg scheduled for renal dose and metoprolol 5 mg Patient advised about fluid restriction 03/04 Patient was with several year nausea vomiting yesterday controlled with scopolamine patch and Compazine and she needed another Compazine dose this morning because of vomiting but now controlled because of this we are going to discontinue scopolamine and keep monitoring Also she is hyponatremic 123 yesterday and low urine sodium, they were trying to get her up to the commode yesterday but she was very weak and her legs gave way and she has to be lowered to the ground, blood pressure was soft 90s over 40s. However this morning there is maybe some improvement with her blood pressure in the systolic reading is more than 100. She is feeling little bit stronger. And we checked her orthostatic vitals while lying and sitting up and they were negative. We will check another urine sodium today and serum sodium. And will decide if patient will need more IV bolus or IV fluids. Her Eliquis remains on hold, her lower abdominal hematoma is improving less discoloration and less pain/tenderness discussed with staff 03/05 Patient today feels better she is up in bed and she looks better and more e nergetic. Patient asking when she will be discharged home Her pain and bruise on the lower abdominal are stable and improving slowly and gradually. Still has vaginal symptoms but today she has less vaginal bleeding for the first time as she explains but has not stopped completely. Blood pressure above 100 which looks stable. Sodium slightly up 123 up to 124 and creatinine 1.6. Leukocyte count is coming down to 16,000 and hemoglobin down to 7.4 from 7.6 She remains on ceftriaxone and Diflucan. Eliquis remains on hold. She is still giving sodium bicarb tablets per nephrology team 03/06 Patient still feels stronger, she was to go home from yesterday Patient denies any other new symptoms. She has ongoing vaginal mass related to her melanoma with evidence of metastasis intra-abdominal the and into the lymph node. She has been treated with antibiotics. She finished her course yesterday we will keep monitoring. Currently she is afebrile. She has chronic leukocytosis. Also her labs are stable low sodium 124, creatinine improved down to 1.52. Hemoglobin is stable at 7.3 Eliquis remains on hold and her intra-abdominal wall hematoma is improving. Possible resume Eliquis upon discharge Sodium also stable creatinine improving, I discussed the case with Dr. Wood who cleared her for discharge today However patient was vomiting despite taking medication therefore we are going to monitor her today. Scopolamine patch and Benadryl was added Possible discharge in 24 to 48 hours if she keeps improved 03/07 Patient was doing well today Had nausea vomiting controlled with Benadryl helped as well She was cleared for discharge by all consultants. After discharge today, patient left on her way to the car she felt generally weak and she fell so she came back, Patient now requesting subacute rehab which is going to be early next week 03/08 Yesterday patient was discharged home. Originally she was evaluated by PT/OT recommended subacute rehab but patient declined Her nausea vomiting controlled and on her way out with her she could not move correctly from a standing position to this vehicle seat so she lost her balance and she has to be lowered to the ground but there is no actual fall with no head trauma or any other part per her body confirmed with her which is at bedside now She still complains from appetite is poor Patient denies vomiting as above no abdominal pain or worsening infection. She tolerates her diet little by little. Ultimately most likely patient will be discharged to rehab on Friday 03/09 Patient came back to the hospital after she discharge and fell on her way leaving the hospital Now she is pending placement to rehab She denies any other new complaint Eliquis was held about a week ago after she developed lower abdominal hematoma. Currently stable recommend to resume her Eliquis starting tomorrow 03/10/2025 Patient is seen and evaluated in follow-up today continuing to have dry heaves and multiple episodes of nausea with vomiting. Patient is taking a number of different antinausea medications with no relief with multiple consultations following including nephrology and oncology. White count remains elevated at 15.4, hemoglobin is 7.3, sodium remains low although stable at 125. Replace electrolytes per protocol. Patient is significantly weak and working on discharge planning possibly to ECF with case management following. Continue PT OT therapy notes. 03/11/2025 Patient is seen in follow-up today continues to have multiple episodes of vomiting with nausea and dry heaving with oncology following with concerns of possible lesion of the brain or metastasis and has ordered MRI of the brain. Patient is on multiple amounts of antinausea medication with no relief. Patient continues with significant weakness and unable to tolerate much diet not eating very well. Sodium continues to be low and was given a dose of Samsca today per nephrology will follow-up on repeat labs. Recommend physical therapy daily for continued strength and mobility. Patient may require ECF on discharge as patient has had prolonged hospitalization with multiple hospitalizations and progressively becoming more weak. Prognosis is guarded at this time. 03/12/2025 Patient is seen in follow-up this morning more awake today underwent MRI of the brain yesterday with no suggestions of lesions or metastatic disease noted. Patient continues to have continuous nausea with dry heaving and vomiting noted. Referral was placed to GI and appreciate input and recommendations. Possible endoscopy intervention being planned. Patient reports she was able to have a bowel movement today although unsure on exact consistency and if there was blood noted. Hemoglobin is 7.1 today. Recommend to continue monitoring closely. 03/13/2025 Patient is seen in follow-up this morning currently is n.p.o. as patient was scheduled to undergo EGD with GI services. No active GI bleeding noted at this time other than continued hematuria and Xarelto remains on hold. Hemoglobin is 7.6 and white count remains elevated at 13.4 maintained on antibiotics with infectious disease following. Patient sodium continues to drop with nephrology following status post Samsca with no improvement and is currently 123. Kidney function study going up and and creatinine is 1.6 with a BUN of 68.7. Will await GI evaluation. 03/14/2025 Patient remains n.p.o. and is scheduled to undergo EGD today with GI as she was scheduled to go undergo yesterday although concerns of hyponatremia. Nephrology is following and has been working on sodium levels and is 125 today. White count remains elevated although trending down at 12.69, hemoglobin is 7.2. Anticoagulation remains on hold and will await EGD report. Patient is afebrile with no reports of chest pain or shortness of breath at this time. 03/15/2025 Patient underwent EGD yesterday with findings of antral gastritis. Nephrology following. Anticoagulation remains on hid. Patient continues to report abdomi nal pain and currently rating 7/10. Labs today reveal a white blood cell count of 12.79, hemoglobin 7.1, BUN of 71 creatinine of 2.2 and a sodium level of 124. 03/16/2025 Patient evaluated in follow up on the medical floor. Resting comfortably. Has been continued liquid diet, requesting more solid foods today. Hemoglobin 7.5. Sodium 122, BUN 71.9, creatinine 2.5. Recommend to monitor closely for urinary retention. 03/17/2025 Patient evaluated in follow up today. Was nausea and had episode of vomiting this AM. Oncology has followed up with the patient today. Nephrology following and patient not a candidate for renal replacement therapy. Discussed hospice and comfort care measures with the patient. She is unsure what to do. wants her to continue getting treatment. She did see Gynonc specialist at [facility] but was referred back to local area for oncology care as she had a hard time getting to her appointments there. Reports will be requested, she isnt sure the name of the doctor she saw. Patient will require TIO on disharge as she is currently unable to get up and is a maximum assist at this time. Discussed with patient that she cannot receive oncological care while at rehab. Patient was tearful. She wants to follow up with her about hospice/comfort care. She does state her and her have talked about it. WBC 13.85, hgb 7.4, na 122, potassium 4.9, BUN 73.1, creatinine 2.5. Magnesium 2.0. Review of systems: Constitutional: reports of fatigue, no fever, or chills Cardiovascular: No reports of chest pain or palpitations Respiratory: No reports of shortness of breath or cough GI: reports of nausea, with continued dry heaves and vomiting : No reports of dysuria or retention Neurovascular: reports of weakness All medications have been reviewed Physical exam: GENERAL: The patient is asleep although easily arousable alert and oriented x3. Well developed, well nourished. Appears older than stated age, ill-appearing, morbidly obese HEENT: Pupils are round and equally reacting to light. EOMI. No scleral icterus. No conjunctival pallor. Normocephalic, atraumatic. No pharyngeal erythema. No thyromegaly. CARDIOVASCULAR: S1 and S2 present. No murmurs, rubs, or gallops. PULMONARY: Diminished breath sounds bilaterally otherwise chest is clear to auscultation, no wheezing , no crackles. ABDOMEN: Soft, obese, nontender, nondistended, normoactive bowel sounds. No palpable organomegaly. MUSCULOSKELETAL: No joint swelling or deformity. EXTREMITIES: No cyanosis, clubbing, or pedal edema. NEUROLOGICAL: Gross neurological examination did not reveal any focal deficits. Diffusely weak SKIN: No rashes. no petechiae. Assessment: Lower abdominal hematoma suspected with severe anemia required unit of blood transfusion on 03/01 Severe hyponatremia with sodium level 118 on admission-hypoosmolar hyponatremia due to decreased oral intake and LISSETTE. status post Samsca administration Acute kidney injury. Possible ATN. SIADH cannot be excluded due to underlying malignancy. Creatinine 2.96 on admission baseline 1.0 Fall outside the hospital with generalized weakness and difficulty ambulating Non-anion gap metabolic acidosis Acute urinary tract infection with Proteus Mirabellas Mild pancreatitis with lipase level 441, improved Malignant melanoma with mets to liver and lymph nodes, generalized intra- abdominal lymphadenopathy and hepatic metastasis. On chemoinfusion and is on follow-up with oncology. Bleeding from malignant perianal lesion Diabetes type 2 insulin-dependent Diabetic peripheral neuropathy History of SVT Paroxysmal atrial fibrillation Osteoarthritis Hypertension Hyperlipidemia GERD Depression Prior history of smoking Microcytic anemia with iron deficiency. Hemoglobin 8.8 on admission morbid obesity with a BMI of 48.8 GI prophylaxis DVT prophylaxis No code Plan: Continue with the current antiemetics and adjust medications as patient continues to have dry heaving and vomiting. Oncology following with concerns of possible lesion or metastasis to the brain and underwent MRI of the brain which was negative GI consulted and appreciate input and recommendations. EGD reveals antral gastritis continue with protonix daily Recommend to continue with scheduled bowel regimen Continue holding Eliquis 2.5 mg, keep monitoring hemoglobin and the hematoma. Hemoglobin is stable above 7.5 at this time Patient to continue with antibiotic regimen per ID recommendations Monitor sodium level, nephrology following and sodium is 122 Patient with worsening renal function and not considered a candidate for renal replacement therapy at this time. Patient continues on sodium chloride tab and fluid restriction Recommend PT/OT therapy evaluation with case management following and plan is to discharge to possible ECF for continued strength and mobility as patient fell attempting to leave the hospital on last admission and unable to get up. Patient has had frequent hospitalizations with prolonged hospitalization and is significantly weak from continued strength mobility. She is currently maximum assist. Patient cannot continue oncological care while at the rehab and she was notified of this. Did discuss hospice/comfort care. Patient is unsure what to do. Reports will be requested from Robotics Technician/Onc who patient saw at [facility]. Continue to monitor electrolytes, renal function closely. The impression and plan of care has been dictated by Renetta Villalba, Nurse Practitioner as directed. Dr. Randy MD I have performed a history and physical examination and medical decision making of this patient, discussed the same with the dictator, and agree with the dictators assessment and plan as written, documented as a scribe. Based on total visit time, I have performed more than 50% of this visit. Objective - Vital Signs Vital signs: Vital Signs Temp 97.8 F 03/17/25 14:00 Pulse 71 03/17/25 14:00 Resp 18 03/17/25 14:00 BP 107/72 03/17/25 14:00 Pulse Ox 99 03/17/25 14:00 FiO2 Intake & Output 03/16/25 03/17/25 03/17/25 18:59 06:59 18:59 Intake Total 360 240 Balance 360 240 Intake: IV 360 0.9 360 Oral 240 Other: Voiding Method Bedpan Bedpan Diaper # Voids 1 - Labs CBC & Chem 7: 03/17/25 02:49 03/17/25 16:09 Labs: Abnormal Lab Results - Last 24 Hours (Table) 03/16/25 03/17/25 03/17/25 Range/Units 20:29 02:49 02:49 WBC 13.85 H (4.50-10.00) X 10*3/uL RBC 2.74 L (4.10-5.20) X 10*6/uL Hgb 7.4 L (12.0-15.0) g/dL Hct 24.2 L (37.2-46.3) % MCHC 30.6 L (32.0-37.0) g/dL RDW 19.9 H (11.5-14.5) % Plt Count 624 H (140-440) X 10*3/uL Immature Gran # 0.22 H (0.00-0.04) X 10*3/uL Neutrophils # 11.90 H (1.80-7.70) X 10*3/uL Lymphocytes # 0.60 L (0.90-5.00) X 10*3/uL Eosinophils # 0.50 H (0.04-0.35) X 10*3/uL NRBC/100 WBC Diff 0.02 H (0.00-0.01) X 10*3/uL Sodium 121 L (135-145) mmol/L Chloride 90 L (96-109) mmol/L Carbon Dioxide 17.5 L (21.6-31.8) mmol/L Anion Gap 13.50 H (4.00-12.00) mmol/L BUN 73.1 H (9.0-27.0) mg/dL Creatinine 2.5 H (0.6-1.5) mg/dL Est GFR (CKD-EPI) 22 L (>=60) BUN/Creatinine Ratio 29.24 H (12.00-20.00) Ratio POC Glucose (mg/dL) 167 H (70-110) mg/dL Calcium 8.0 L (8.7-10.3) mg/dL 03/17/25 03/17/25 03/17/25 Range/Units 06:21 11:26 16:09 WBC (4.50-10.00) X 10*3/uL RBC (4.10-5.20) X 10*6/uL Hgb (12.0-15.0) g/dL Hct (37.2-46.3) % MCHC (32.0-37.0) g/dL RDW (11.5-14.5) % Plt Count (140-440) X 10*3/uL Immature Gran # (0.00-0.04) X 10*3/uL Neutrophils # (1.80-7.70) X 10*3/uL Lymphocytes # (0.90-5.00) X 10*3/uL Eosinophils # (0.04-0.35) X 10*3/uL NRBC/100 WBC Diff (0.00-0.01) X 10*3/uL Sodium 122 L (135-145) mmol/L Chloride (96-109) mmol/L Carbon Dioxide (21.6-31.8) mmol/L Anion Gap (4.00-12.00) mmol/L BUN (9.0-27.0) mg/dL Creatinine (0.6-1.5) mg/dL Est GFR (CKD-EPI) (>=60) BUN/Creatinine Ratio (12.00-20.00) Ratio POC Glucose (mg/dL) 143 H 153 H (70-110) mg/dL Calcium (8.7-10.3) mg/dL 03/17/25 Range/Units 16:23 WBC (4.50-10.00) X 10*3/uL RBC (4.10-5.20) X 10*6/uL Hgb (12.0-15.0) g/dL Hct (37.2-46.3) % MCHC (32.0-37.0) g/dL RDW (11.5-14.5) % Plt Count (140-440) X 10*3/uL Immature Gran # (0.00-0.04) X 10*3/uL Neutrophils # (1.80-7.70) X 10*3/uL Lymphocytes # (0.90-5.00) X 10*3/uL Eosinophils # (0.04-0.35) X 10*3/uL NRBC/100 WBC Diff (0.00-0.01) X 10*3/uL Sodium (135-145) mmol/L Chloride (96-109) mmol/L Carbon Dioxide (21.6-31.8) mmol/L Anion Gap (4.00-12.00) mmol/L BUN (9.0-27.0) mg/dL Creatinine (0.6-1.5) mg/dL Est GFR (CKD-EPI) (>=60) BUN/Creatinine Ratio (12.00-20.00) Ratio POC Glucose (mg/dL) 158 H (70-110) mg/dL Calcium (8.7-10.3) mg/dL Assessment and Plan Time with Patient: Less than 30
[2025-03-17 20:49] LABS: Glucose,Whole Blood 117 mg/dL (70-110)
[2025-03-17] MEDS: FUROSEMIDE 10 MG/ML 2 ML VIAL IV ONE (23:53)
[2025-03-18 06:09] LABS: Glucose,Whole Blood 153 mg/dL (70-110)
[2025-03-18 08:18] LABS: Basophils # (A) 0.02 X 10*3/uL (0.00-0.10); Basophils % (A) 0.1 %; Eosinophils # (A) 0.45 X 10*3/uL (0.04-0.35); Eosinophils % (A) 3.2 %; HCT 23.1 % (37.2-46.3); HGB 7.2 g/dL (12.0-15.0); Lymphocytes # (A) 0.78 X 10*3/uL (0.90-5.00); Lymphocytes % (A) 5.5 %; MCH 27.4 pg (27.0-32.0); MCHC 31.2 g/dL (32.0-37.0); MCV 87.8 FL (80.0-97.0); Mean Platelet Volume 9.8 FL (9.5-12.2); Monocytes # (A) 0.62 X 10*3/uL (0.20-1.00); Monocytes % (A) 4.4 %; NRBC Per 100 WBC 0 X 10*3/uL (0.00-0.01); Neutrophils # (A) 11.99 X 10*3/uL (1.80-7.70); Neutrophils % (A) 85.2 %; Platelet Count 568 X 10*3/uL (140-440); RBC 2.63 X 10*6/uL (4.10-5.20); RDW 19.4 % (11.5-14.5); WBC 14.08 X 10*3/uL (4.50-10.00)
[2025-03-18 08:39] LABS: BUN/Creat Ratio 29.79 Ratio (12.00-20.00); Blood Urea Nitrogen 71.5 mg/dL (9.0-27.0); Carbon Dioxide 17.5 mmol/L (21.6-31.8); Chloride 91 mmol/L (96-109); Glucose 132 mg/dL (70-110); Potassium 4.6 mmol/L (3.5-5.5); Sodium 121 mmol/L (135-145)
[2025-03-18 11:50] LABS: Glucose,Whole Blood 160 mg/dL (70-110)
[2025-03-18] MEDS: HYDROmorphone 1 MG/ML 1 ML SYRINGE IVP STA (11:56)
--- NOTE | 2025-03-18 13:49 | P.PN ---
Subjective Patient is seen for follow-up for acute kidney injury and hyponatremia. Renal function slightly worse over the last 2 days with creatinine stable at 2.4 Sodium is 121 today. Patient has been refusing sodium chloride tabs due to nausea There has been discussion about hospice care. Objective - Vital Signs Vital signs: Vital Signs Temp 97.6 F 03/18/25 07:43 Pulse 75 03/18/25 07:43 Resp 18 03/18/25 07:43 BP 106/67 03/18/25 07:43 Pulse Ox 99 03/18/25 07:43 FiO2 Intake & Output 03/17/25 03/18/25 03/18/25 18:59 06:59 18:59 Other: Voiding Method Bedpan Diaper # Voids 5 6 1 - Exam Patient is awake, comfortable, no acute distress. Examination of the heart S1 and S2 Examination of the lungs bilateral breath sounds are heard Abdomen is soft obese Examination of lower extremities shows edema 1+, right more than left - Labs CBC & Chem 7: 03/18/25 03:12 03/18/25 03:12 Labs: Abnormal Lab Results - Last 24 Hours (Table) 03/17/25 03/17/25 03/17/25 Range/Units 16:09 16:23 20:45 WBC (4.50-10.00) X 10*3/uL RBC (4.10-5.20) X 10*6/uL Hgb (12.0-15.0) g/dL Hct (37.2-46.3) % MCHC (32.0-37.0) g/dL RDW (11.5-14.5) % Plt Count (140-440) X 10*3/uL Immature Gran # (0.00-0.04) X 10*3/uL Neutrophils # (1.80-7.70) X 10*3/uL Lymphocytes # (0.90-5.00) X 10*3/uL Eosinophils # (0.04-0.35) X 10*3/uL Sodium 122 L (137-145) mmol/L Chloride (96-109) mmol/L Carbon Dioxide (21.6-31.8) mmol/L Anion Gap (4.00-12.00) mmol/L BUN (9.0-27.0) mg/dL Creatinine (0.6-1.5) mg/dL Est GFR (CKD-EPI) (>=60) BUN/Creatinine Ratio (12.00-20.00) Ratio Glucose (70-110) mg/dL POC Glucose (mg/dL) 158 H 117 H (70-110) mg/dL Calcium (8.7-10.3) mg/dL 03/18/25 03/18/25 03/18/25 Range/Units 03:12 03:12 06:06 WBC 14.08 H (4.50-10.00) X 10*3/uL RBC 2.63 L (4.10-5.20) X 10*6/uL Hgb 7.2 L (12.0-15.0) g/dL Hct 23.1 L (37.2-46.3) % MCHC 31.2 L (32.0-37.0) g/dL RDW 19.4 H (11.5-14.5) % Plt Count 568 H (140-440) X 10*3/uL Immature Gran # 0.22 H (0.00-0.04) X 10*3/uL Neutrophils # 11.99 H (1.80-7.70) X 10*3/uL Lymphocytes # 0.78 L (0.90-5.00) X 10*3/uL Eosinophils # 0.45 H (0.04-0.35) X 10*3/uL Sodium 121 L (137-145) mmol/L Chloride 91 L (96-109) mmol/L Carbon Dioxide 17.5 L (21.6-31.8) mmol/L Anion Gap 12.50 H (4.00-12.00) mmol/L BUN 71.5 H (9.0-27.0) mg/dL Creatinine 2.4 H (0.6-1.5) mg/dL Est GFR (CKD-EPI) 23 L (>=60) BUN/Creatinine Ratio 29.79 H (12.00-20.00) Ratio Glucose 132 H (70-110) mg/dL POC Glucose (mg/dL) 153 H (70-110) mg/dL Calcium 8.0 L (8.7-10.3) mg/dL 03/18/25 Range/Units 11:45 WBC (4.50-10.00) X 10*3/uL RBC (4.10-5.20) X 10*6/uL Hgb (12.0-15.0) g/dL Hct (37.2-46.3) % MCHC (32.0-37.0) g/dL RDW (11.5-14.5) % Plt Count (140-440) X 10*3/uL Immature Gran # (0.00-0.04) X 10*3/uL Neutrophils # (1.80-7.70) X 10*3/uL Lymphocytes # (0.90-5.00) X 10*3/uL Eosinophils # (0.04-0.35) X 10*3/uL Sodium (137-145) mmol/L Chloride (96-109) mmol/L Carbon Dioxide (21.6-31.8) mmol/L Anion Gap (4.00-12.00) mmol/L BUN (9.0-27.0) mg/dL Creatinine (0.6-1.5) mg/dL Est GFR (CKD-EPI) (>=60) BUN/Creatinine Ratio (12.00-20.00) Ratio Glucose (70-110) mg/dL POC Glucose (mg/dL) 160 H (70-110) mg/dL Calcium (8.7-10.3) mg/dL Assessment and Plan Assessment: 1. 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 Urine osmolality 252. Sodium 124. Maintained on sodium chloride tabs. Status post Samsca on 03/16/2025. Status post IV Lasix on 03/14/2025. Cortisol level not low. TSH normal. Urine osmolality 252. 2. Malignant melanoma with metastatic disease to liver and lymph nodes. 3. Acute kidney injury secondary to ATN secondary to severe sepsis. Baseline creatinine near 1 from December 2024. Creatinine 2.96 on admission and improved to 1.06 - worsened again due to acute blood loss anemia. Stabilized at 1.6 now. BUN disproportionately elevated from urea. 4. UTI on antibiotics. Urine culture positive for Proteus. 5. Metabolic acidosis secondary to acute kidney injury and IV fluids. Was also on metformin. On oral bicarb. 6. Diabetes mellitus. 7. Anemia. Iron deficiency noted. s/p IV iron. Having vaginal bleeding. 8. Abdominal wall hematoma Plan: Repeat sodium later on today Patient has not been taking sodium chloride tabs due to nausea. If her serum sodium drops further she will need 3% saline however consider further discussion regarding hospice care given her metastatic malignancy Continue fluid restriction Continue midodrine Continue with oral sodium bicarb, increased dose
--- NOTE | 2025-03-18 14:27 | P.PN ---
Subjective Progress Note Date: 03/18/25 Principal diagnosis: UTI, LISSETTE. Metastatic melanoma Patient seen today for follow-up. She has had the MRI of the brain, no metastatic disease. She has had an EGD done with some mild gastritis and some polyps that have been biopsied, pending path, nothing in procedure note to campos ggest malignant cause. She is still having vomiting, dry heaves, maybe a little less since starting valium yesterday. Received a call from Nursing that pt was inquiring about hospice. I spoke with her then, was was contacted to come in for family meeting which we had today. No new complaints from the patient today. No documented fevers Objective - Vital Signs Vital signs: Vital Signs Temp 97.6 F 03/18/25 07:43 Pulse 75 03/18/25 07:43 Resp 18 03/18/25 07:43 BP 106/67 03/18/25 07:43 Pulse Ox 99 03/18/25 07:43 FiO2 Intake & Output 03/17/25 03/18/25 03/18/25 18:59 06:59 18:59 Other: Voiding Method Bedpan Diaper # Voids 5 6 1 - Constitutional General appearance: Present: cooperative, morbidly obese, no acute distress - EENT Eyes: Present: anicteric sclerae, EOMI ENT: Present: hearing grossly normal - Respiratory Details: Respirations unlabored at rest - Cardiovascular Details: Skin is cool to touch, pale, radial pulse 2+, well-perfused overall - Peripheral edema leg Peripheral Edema: bilateral: 2+ (Right greater than left) - Gastrointestinal Gastrointestinal Comment(s): Large malignant inguinal mass - Integumentary Integumentary: Present: pale - Neurologic Neurologic: Present: CNII-XII intact - Musculoskeletal Musculoskeletal: Present: generalized weakness - Psychiatric Psychiatric Comment(s): Patient is alert oriented to self place and time, at times she says things that are not in line with the conversation but, overall, she intact judgment - Labs CBC & Chem 7: 03/18/25 03:12 03/18/25 03:12 Labs: Abnormal Lab Results - Last 24 Hours (Table) 03/17/25 03/17/25 03/17/25 Range/Units 16:09 16:23 20:45 WBC (4.50-10.00) X 10*3/uL RBC (4.10-5.20) X 10*6/uL Hgb (12.0-15.0) g/dL Hct (37.2-46.3) % MCHC (32.0-37.0) g/dL RDW (11.5-14.5) % Plt Count (140-440) X 10*3/uL Immature Gran # (0.00-0.04) X 10*3/uL Neutrophils # (1.80-7.70) X 10*3/uL Lymphocytes # (0.90-5.00) X 10*3/uL Eosinophils # (0.04-0.35) X 10*3/uL Sodium 122 L (137-145) mmol/L Chloride (96-109) mmol/L Carbon Dioxide (21.6-31.8) mmol/L Anion Gap (4.00-12.00) mmol/L BUN (9.0-27.0) mg/dL Creatinine (0.6-1.5) mg/dL Est GFR (CKD-EPI) (>=60) BUN/Creatinine Ratio (12.00-20.00) Ratio Glucose (70-110) mg/dL POC Glucose (mg/dL) 158 H 117 H (70-110) mg/dL Calcium (8.7-10.3) mg/dL 03/18/25 03/18/25 03/18/25 Range/Units 03:12 03:12 06:06 WBC 14.08 H (4.50-10.00) X 10*3/uL RBC 2.63 L (4.10-5.20) X 10*6/uL Hgb 7.2 L (12.0-15.0) g/dL Hct 23.1 L (37.2-46.3) % MCHC 31.2 L (32.0-37.0) g/dL RDW 19.4 H (11.5-14.5) % Plt Count 568 H (140-440) X 10*3/uL Immature Gran # 0.22 H (0.00-0.04) X 10*3/uL Neutrophils # 11.99 H (1.80-7.70) X 10*3/uL Lymphocytes # 0.78 L (0.90-5.00) X 10*3/uL Eosinophils # 0.45 H (0.04-0.35) X 10*3/uL Sodium 121 L (137-145) mmol/L Chloride 91 L (96-109) mmol/L Carbon Dioxide 17.5 L (21.6-31.8) mmol/L Anion Gap 12.50 H (4.00-12.00) mmol/L BUN 71.5 H (9.0-27.0) mg/dL Creatinine 2.4 H (0.6-1.5) mg/dL Est GFR (CKD-EPI) 23 L (>=60) BUN/Creatinine Ratio 29.79 H (12.00-20.00) Ratio Glucose 132 H (70-110) mg/dL POC Glucose (mg/dL) 153 H (70-110) mg/dL Calcium 8.0 L (8.7-10.3) mg/dL 03/18/25 Range/Units 11:45 WBC (4.50-10.00) X 10*3/uL RBC (4.10-5.20) X 10*6/uL Hgb (12.0-15.0) g/dL Hct (37.2-46.3) % MCHC (32.0-37.0) g/dL RDW (11.5-14.5) % Plt Count (140-440) X 10*3/uL Immature Gran # (0.00-0.04) X 10*3/uL Neutrophils # (1.80-7.70) X 10*3/uL Lymphocytes # (0.90-5.00) X 10*3/uL Eosinophils # (0.04-0.35) X 10*3/uL Sodium (137-145) mmol/L Chloride (96-109) mmol/L Carbon Dioxide (21.6-31.8) mmol/L Anion Gap (4.00-12.00) mmol/L BUN (9.0-27.0) mg/dL Creatinine (0.6-1.5) mg/dL Est GFR (CKD-EPI) (>=60) BUN/Creatinine Ratio (12.00-20.00) Ratio Glucose (70-110) mg/dL POC Glucose (mg/dL) 160 H (70-110) mg/dL Calcium (8.7-10.3) mg/dL - Imaging and Cardiology US - abdomen: report reviewed Assessment and Plan (1) LISSETTE (acute kidney injury) Current Visit: Yes Status: Acute Priority: High Code(s): N17.9 - ACUTE KIDNEY FAILURE, UNSPECIFIED SNOMED Code(s): 42250585 (2) Hematoma Current Visit: Yes Status: Acute Priority: Medium Code(s): T14.8XXA - OTHER INJURY OF UNSPECIFIED BODY REGION, INITIAL ENCOUNTER SNOMED Code(s): 514961263 (3) Melanoma Current Visit: Yes Status: Acute Priority: High Code(s): C43.9 - MALIGNANT MELANOMA OF SKIN, UNSPECIFIED SNOMED Code(s): 532844780 Plan: Septic shock secondary to UTI -Admitted for the same. -ID following, Antibiotics completed -Repeat urine and blood cultures due to leukocytosis on 02/27/2025 were negative Hyponatremia -Worsening sodium levels as patient is refusing to take sodium tablets. -It was explained to patient that if her sodium and/or kidney function worsens she may end up in the ICU or on dialysis -Nephrology following. Hematoma -CT AP reporting massive lymphadenopathy in the inguinal lymph nodes. Subcutaneous increased density present at the level of the iliac wings both med ially and laterally. Nonspecific, possibly edema or contusions -Ultrasound 03/01/2025 showing fluid collection 5.3 x 5.1 x 1.3 cm. Warren to be a hematoma. Repeat ultrasound 02/15/25 reports more well-defined fluid channels and simple appearing small fluid locules measuring up to 3.3 cm in the region of concern on the right possibly small organizing hematomas in the setting of extensive bruising. Pulm report appears to be smaller. -Hemoglobin has remained stable, in the 7 range since transfusions on 02/28 and 03/01 for hemoglobin in the 6 range. -Eliquis was resumed but discontinued for persistent hematuria-actually bleeding is more likely from malignant lesion in the perineal area. 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 -Pt did receive 3 doses of IV iron around 02/23. N/V -Persistent despite multiple medications adjustments -MRI of the brain to rule out brain mets as an underlying cause. MRI results reviewed-no evidence for malignancy -EGD procedure note reporting mild antral gastritis, some gastric polyps, pending biopsy -No identifiable cause for intractable N, V, dry heaves. Random episodes, no pattern. -Added valium yesterday for anticipatory nausea and vomiting, pt thinks it may be helping some Metastatic melanoma - Received 3 cycles of Opdualag, last dose on 02/17/2025 - CT AP reported known metastases to the liver and abdominal/iliac lymphad enopathy. This scan was also compared to scans obtained in November 2023. She had a PET CT prior to initiation of treatment that was performed at [facility] and was not used for comparison. -Unable to find any imaging that was done between October 2024 and patient starting treatment mid December 2024 I was contacted by Nursing staff. They were instructed by Attending team to have have Oncology have a meeting with patient and about patient's wishes for hospice. Patient had mentioned to staff being tired and wanting hospice. I returned to the room and discussed with the patient her wishes. She confirmed that she is tired of hospital and wants to go home. She was able to confirm that she understood that hospice care is active treatment of symptoms but, no treatment of underlying disease. She did verbalize understanding. I let patient know that she is able to make any decisions regarding her health care and she will be supported. I told her that I would like to review the case with her primary Oncologist. She is agreeable to the same. Also, I had staffed contact the patient's so that we could meet up and have a formal discussion together. I reviewed the case with patient's primary Oncologist Dr. Botello. Imaging done 02/27/2025 compared to imaging done in October 2024 (PET scan in October, compared to CT scan in February) several areas of lymphadenopathy are significantly larger (for example LAD 3- 4 cm was some of the largest mentioned on PET scan compared to lymphadenopathy as large as [address] scan). As for patient's intractable vomiting workup has been extensive. Patient is on multiple antiemetic medications. The last treatment option would be high-dose steroid treatment to reverse side effects of immunotherapy, if that is what her intractable nausea and vomiting is secondary to. Offered patient 48 hours of high-dose steroids to see if her symptoms improve at all. We also discussed hospice philosophy, intent of hospice care and treatments. All of the above was discussed with the . All questions were answered to the best of my ability. We also reviewed concerns that Nephrology has for patient's low sodium levels and, renal function with creatinine staying about 2.5, slightly worse after getting a little bit better. Admits changes in her renal function could possibly change her hospital course. Patient agreeable for 48 hours of steroids to see if this helps with her nausea and vomiting. Patient also agreeable to hospice informational session. Orders have been placed for both. We will follow-up with patient. We will continue to update the chart based on patient and family's decisions. Time with Patient: Greater than 30 (>90 min spent counseling and coordinating care)
[2025-03-18] MEDS: methylPREDNISolone SOD SUCCI 125 MG/2 ML VIAL IV SCH (14:48)
[2025-03-18 16:58] LABS: Glucose,Whole Blood 132 mg/dL (70-110)
[2025-03-18 17:40] VITALS: BMI 48.2
[2025-03-18 20:55] LABS: Glucose,Whole Blood 245 mg/dL (70-110)
[2025-03-19 06:50] LABS: Glucose,Whole Blood 225 mg/dL (70-110)
[2025-03-19 11:26] LABS: Glucose,Whole Blood 219 mg/dL (70-110)
--- NOTE | 2025-03-19 11:57 | P.PN ---
Subjective Patient is seen for follow-up for acute kidney injury and hyponatremia. Renal function slightly worse over the last 2 days with creatinine stable at 2.4 Sodium is 122 yesterday. Patient has been refusing sodium chloride tabs due to nausea Patient and have decided to proceed with hospice care. Objective - Vital Signs Vital signs: Vital Signs Temp 97.6 F 03/19/25 07:15 Pulse 60 03/19/25 07:15 Resp 16 03/19/25 07:15 BP 125/78 03/19/25 07:15 Pulse Ox 99 03/19/25 07:15 FiO2 Intake & Output 03/18/25 03/19/25 03/19/25 18:59 06:59 18:59 Intake Total 680 Balance 680 Weight 144 kg Intake: Oral 680 Other: Voiding Method Bedpan Diaper # Voids 1 9 - Exam Patient is awake, comfortable, no acute distress. Abdomen is soft obese Examination of lower extremities shows edema 1+, right more than left - Labs CBC & Chem 7: 03/18/25 03:12 03/18/25 17:39 Labs: Abnormal Lab Results - Last 24 Hours (Table) 03/18/25 03/18/25 03/18/25 Range/Units 16:56 17:39 20:53 Sodium 122 L (137-145) mmol/L POC Glucose (mg/dL) 132 H 245 H (70-110) mg/dL 03/19/25 03/19/25 Range/Units 06:49 11:25 Sodium (137-145) mmol/L POC Glucose (mg/dL) 225 H 219 H (70-110) mg/dL Assessment and Plan Assessment: 1. 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 Urine osmolality 252. Sodium 122. Unable to take sodium chloride tablets due to nausea. Status post Samsca on 03/16/2025. Status post IV Lasix on 03/14/2025. Cortisol level not low. TSH normal. Urine osmolality 252. 2. Malignant melanoma with metastatic disease to liver and lymph nodes. 3. Acute kidney injury secondary to ATN secondary to severe sepsis. Baseline creatinine near 1 from December 2024. Creatinine 2.96 on admission and improved to 1.06 - worsened again due to acute blood loss anemia. Stabilized at 1.6 now. BUN disproportionately elevated from urea. 4. UTI on antibiotics. Urine culture positive for Proteus. 5. Metabolic acidosis secondary to acute kidney injury and IV fluids. Was also on metformin. On oral bicarb. 6. Diabetes mellitus. 7. Anemia. Iron deficiency noted. s/p IV iron. Having vaginal bleeding. 8. Abdominal wall hematoma Plan: Agree with plans for hospice care Continue with oral sodium bicarb for now
--- NOTE | 2025-03-19 13:54 | PN ---
PROGRESS NOTE DATE OF SERVICE: 03/18/2025 SUBJECTIVE: This 55-year-old woman who was admitted with multiple complex medical issues including anemia, lower abdominal pain, has worsening metastatic disease with possibly new lymph nodes in the liver and other areas. The patient metastatic malignant melanoma. The patient apparently would like to have a hospice and I recommended Hematology Oncology to have a conference between the patient and the to decide on the further plan of action. PAST MEDICAL HISTORY: Reviewed. REVIEW OF SYSTEMS: Negative as mentioned earlier. CURRENT MEDICATIONS: Reviewed. PHYSICAL EXAMINATION: VITAL SIGNS: Pulse is 75, blood pressure 106/69, and respirations 18. CHEST: Clear to auscultation. CARDIOVASCULAR: S1, S2. ABDOMEN: Soft, mild diffuse discomfort. LABORATORY DATA: Noted. ASSESSMENT: 1. Malignant melanoma with multiple secondaries with interval development of massive inguinal lymph nodes and multiple hepatic mets and also multiple bilateral lung based nodules. 2. Fall and weakness. 3. Urinary tract infection. 4. Mild pancreatitis. 5. Diabetes mellitus, type 2. 6. Multiple complex medical issues. 7. No code, no CPR, no vent. RECOMMENDATIONS AND DISCUSSION: This 55-year-old woman who presented with multiple complex medical issues. The patient has significant increasing burdens of metastatic malignancy at this time and the patient has requested hospice evaluation. The overall prognosis remains extremely poor. As mentioned earlier, we will follow up with Hematology and I would strongly recommend to proceed with a hospice consult and hospice evaluation for this patient with multiple complex medical issues as listed above. Further recommendations to follow. Prognosis guarded. JUSTO / FRANCA: [id number] / MTDD
--- NOTE | 2025-03-19 17:02 | P.PN ---
Subjective Progress Note Date: 03/19/25 Principal diagnosis: UTI, LISSETTE. Metastatic melanoma Patient seen today for follow-up, she and her have decided on hospice care, she will be going home tomorrow. No mention of nausea or vomiting today. Objective - Vital Signs Vital signs: Vital Signs Temp 97.6 F 03/19/25 07:15 Pulse 60 03/19/25 07:15 Resp 16 03/19/25 07:15 BP 125/78 03/19/25 07:15 Pulse Ox 99 03/19/25 07:15 FiO2 Intake & Output 03/18/25 03/19/25 03/19/25 18:59 06:59 18:59 Intake Total 680 Balance 680 Weight 144 kg Intake: Oral 680 Other: Voiding Method Bedpan Diaper # Voids 1 9 - Constitutional General appearance: Present: cooperative, morbidly obese, no acute distress - EENT Eyes: Present: anicteric sclerae, EOMI ENT: Present: hearing grossly normal - Respiratory Details: resp unlabored at rest - Neurologic Neurologic: Present: CNII-XII intact - Musculoskeletal Musculoskeletal: Present: generalized weakness - Psychiatric Psychiatric: Present: A&O x's 3 - Labs CBC & Chem 7: 03/18/25 03:12 03/18/25 17:39 Labs: Abnormal Lab Results - Last 24 Hours (Table) 03/18/25 03/18/25 03/18/25 Range/Units 16:56 17:39 20:53 Sodium 122 L (137-145) mmol/L POC Glucose (mg/dL) 132 H 245 H (70-110) mg/dL 03/19/25 03/19/25 Range/Units 06:49 11:25 Sodium (137-145) mmol/L POC Glucose (mg/dL) 225 H 219 H (70-110) mg/dL Assessment and Plan (1) LISSETTE (acute kidney injury) Current Visit: Yes Status: Acute Priority: High Code(s): N17.9 - ACUTE KIDNEY FAILURE, UNSPECIFIED SNOMED Code(s): 09977214 (2) Hematoma Current Visit: Yes Status: Acute Priority: Medium Code(s): T14.8XXA - OTHER INJURY OF UNSPECIFIED BODY REGION, INITIAL ENCOUNTER SNOMED Code(s): 053851074 (3) Melanoma Current Visit: Yes Status: Acute Priority: High Code(s): C43.9 - MALIGNANT MELANOMA OF SKIN, UNSPECIFIED SNOMED Code(s): 134627932 Plan: Septic shock secondary to UTI -Admitted for the same. -ID following, Antibiotics completed -Repeat urine and blood cultures due to leukocytosis on 02/27/2025 were negative Hyponatremia -Worsening sodium levels as patient is refusing to take sodium tablets. -It was explained to patient that if her sodium and/or kidney function worsens she may end up in the ICU or on dialysis -Nephrology following. Hematoma -CT AP/ reporting massive lymphadenopathy in the inguinal lymph nodes. Subcutaneous increased density present at the level of the iliac wings both medially and laterally. Nonspecific, possibly edema or contusions -Ultrasound 03/01/2025 showing fluid collection 5.3 x 5.1 x 1.3 cm. [place] to be a hematoma. Repeat ultrasound 02/15/25 reports more well-defined fluid channels and simple appearing small fluid locules measuring up to 3.3 cm in the region of concern on the right possibly small organizing hematomas in the setting of extensive bruising. Pulm report appears to be smaller. -Hemoglobin has remained stable, in the 7 range since transfusions on 02/28 and 03/01 for hemoglobin in the 6 range. -Eliquis was resumed but discontinued for persistent hematuria-actually bleeding is more likely from malignant lesion in the perineal area. 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 -Pt did receive 3 doses of IV iron around 02/23. N/V -Persistent despite multiple medications adjustments -MRI of the brain to rule out brain mets as an underlying cause. MRI results reviewed-no evidence for malignancy -EGD procedure note reporting mild antral gastritis, some gastric polyps, pending biopsy -No identifiable cause for intractable N, V, dry heaves. Random episodes, no pattern. -Added valium for anticipatory nausea and vomiting, and trialed the patient on steroids yesterday in case of nausea and vomiting possibly being related to immunotherapy. When seen today patient and state that she is going home with hospice, there was no mention of nausea or vomiting today Metastatic melanoma - Received 3 cycles of Opdualag, last dose on 02/17/2025 - CT AP reported known metastases to the liver and abdominal/iliac lymphadenopathy. When compared to PET scan performed in October 2024 there has been significant enlargement of inguinal lymphadenopathy. Patient and have decided on home with hospice. Patient will be discharged from the hospital once hospice is in place.
[2025-03-19 17:09] LABS: Glucose,Whole Blood 228 mg/dL (70-110)
[2025-03-19 20:51] LABS: Glucose,Whole Blood 180 mg/dL (70-110)
[2025-03-20] MEDS: HYDROcodone/APAP 7.5-325MG 1 EACH TAB PO PRN (00:49)
--- NOTE | 2025-03-20 05:54 | PN ---
PROGRESS NOTE DATE OF SERVICE: 03/19/2025 SUBJECTIVE: This 55-year-old woman is admitted with malignant melanoma metastatic, it has been closely monitored. Hospice has been also consulted. No chest pain. No palpitation. OBJECTIVE: VITAL SIGNS: Pulse is 60, blood pressure n respirations 16. CHEST: Clear to auscultation. CARDIOVASCULAR: S1 and S2 normal. ABDOMEN: Soft. NERVOUS SYSTEM: No focal deficit. LABORATORY DATA: Hemoglobin 7.2. ASSESSMENT: 1. Malignant melanoma with multiple secondaries with interval development of massive inguinal lymphadenopathy as well as multiple hepatic METS and also multiple bilateral lung nodules. 2. Fall and weakness. 3. Urinary tract infection. 4. Mild pancreatitis. 5. Diabetes mellitus type 2. 6. Multiple complex medical issues. 7. No code, no CPR. No vent. RECOMMENDATIONS: Recommend to continue current management and treatment. The family would like to pursue the hospice and this time, I will continue the comfort measures. Guarded prognosis. Further recommendations to follow. MMKHUSHIL / ANGELESN: [id number] / MTDD
[2025-03-20 06:11] LABS: Glucose,Whole Blood 237 mg/dL (70-110)
[2025-03-20 09:07] VITALS: BP 106/67; PULSE 60; RESP 16; TEMP 97.5
--- NOTE | 2025-03-20 10:01 | P.DS ---
Providers Date of admission: 02/21/25 15:46 Expected date of discharge: 03/20/25 Attending physician: Izabella Simmons Consults: 02/21/25 14:48 Consult Physician Urgent Consulting Provider: Hermelindo Botello Consult Reason/Comments: Known Do you want consulting provider notified?: Yes 02/21/25 14:49 Consult Physician Urgent Consulting Provider: Ute Wood Consult Reason/Comments: LISSETTE, hyponatremia Do you want consulting provider notified?: Yes 02/21/25 15:32 Consult Physician Urgent Consulting Provider: Anil Bowman Consult Reason/Comments: UTI Do you want consulting provider notified?: Yes 02/21/25 22:06 Consult Physician Stat Consulting Provider: Uzair Root Consult Reason/Comments: 3% sodium infusion Do you want consulting provider notified?: Yes 03/12/25 12:14 Consult Physician Urgent Consulting Provider: Maryam Bradley Consult Reason/Comments: intractable vomiting, metastatic melanoma Do you want consulting provider notified?: Already Contacted Primary care physician: Kayla Gandhi Hospital Course: Final diagnosis Malignant melanoma with multiple secondaries including interval development of massive inguinal lymphadenopathy as well as multiple hepatic mets and multiple bilateral lung nodules Fall and weakness Urinary tract infection, present on admission Mild pancreatitis Diabetes mellitus, type II Morbid obesity with a BMI of 48.3 Hyperlipidemia Hypertension Osteoarthritis Depression Former smoker No code Discharge disposition Patient is being discharged in a stable condition with guarded prognosis to home with [facility] hosp[facility]. Patient will follow-up with Dr. Gandhi in the outpatient setting upon discharge. Patient is to continue with current supportive care and [facility] services at home. Total time taken is greater than 35 minutes. Hospital course This is a 55-year-old female who was recently admitted with significant weakness was attempting to go home and fell while attempting to get in the car with severe weakness and generalized debility. Patient with significant malignant melanoma with metastasis in multiple areas being closely monitored by oncology. Patient continued to have significant emesis and intolerance to diet with continued clinical decline. Multiple conversations had and ultimately patient and family met with hospice and is agreeable and would like to go home with hospice. [facility] services arranging for discharge planning in the home today. Please refer to other consultation notes for further HPI. Currently no reports of chest pain, no worsening shortness of breath, or palpitations. Patient is afebrile. Continued intermittent reports of nausea with dry heaving and vomiting and patient is attempting to tolerate diet. Patient will be going home with [facility] hospice services. Overall poor and guarded prognosis Physical exam: Gen: This is a 55-year-old female who is awake, alert and oriented x 3, well- developed, appears elderly, ill-appearing, morbidly obese HEENT: Head is atraumatic, normocephalic. Pupils equal, round. Sclerae is anicteric. NECK: Supple. No JVD. No lymphadenopathy. No thyromegaly. LUNGS: Diminished breath sounds bilaterally otherwise clear to auscultation. No wheezes or rhonchi. No intercostal retractions. HEART: S1, S2 are muffled ABDOMEN: Soft. Morbidly obese bowel sounds are present. No masses. No tenderness. EXTREMITIES: No pedal edema. No calf tenderness. Generalized lower extremity edema NEUROLOGICAL: Patient is awake, alert and oriented x3. Cranial nerves 2 through 12 are grossly intact. Diffusely weak Please refer to medication reconciliation sheet for a list of medications. The impression and plan of care has been dictated by Roselyn Rod, Nurse Practitioner as directed. Dr. Ricky MD I have performed a history and examination and MDM of this patient, discussed the same with the dictator, and agree with the dictator's assessment and plan as written ,documented as a scribe. Based on total visit time, I have performed more than 50% of the visit. Patient Condition at Discharge: Fair Plan - Discharge Summary Discharge Rx Participant: Yes New Discharge Prescriptions: New diphenhydrAMINE [Benadryl] 50 mg PO TID PRN #90 capsule PRN Reason: Nausea And Vomiting Prochlorperazine [Compazine] 5 mg PO Q6HR PRN #100 tab PRN Reason: Nausea And Vomiting Midodrine [ProAmatine] 5 mg PO AC-BID #60 tab Sodium Bicarbonate Tab 650 mg PO BID #60 tab Scopolamine 1 mg/72 Hr Patch [TransDerm Scop] 1 patch TRANSDERM Q72H #7 patch Fenofibrate [Lofibra] 160 mg PO DAILY #30 tab Continue Metoprolol Succinate (ER) [Toprol XL] 50 mg PO HS Gabapentin 600 mg PO BID Sertraline [Zoloft] 50 mg PO HS Rosuvastatin [Crestor] 10 mg PO HS Nystatin [Nystop] 1 applic TOPICAL TID PRN PRN Reason: Skin Irritation Apixaban [Eliquis] 2.5 mg PO BID 30 Days #60 tab Pantoprazole Sodium [Protonix] 40 mg PO DAILY #30 tab dilTIAZem HCL [dilTIAZem HCL 24Hr ER (CD)] 120 mg PO HS buPROPion XL [Wellbutrin XL] 150 mg PO DAILY Gabapentin [Neurontin] 300 mg PO BID Changed Ondansetron [Zofran] 4 mg PO Q8HR PRN #40 tab PRN Reason: Nausea And Vomiting Insulin Glargine/Lixisenatide [Soliqua 100 Unit-33 Mcg/ml Pen] 10 units SQ AC-BRKFST #10 ml Discontinued gemfibroziL [Lopid] 600 mg PO DAILY Spironolactone 25 mg PO DAILY Losartan [Cozaar] 50 mg PO DAILY metFORMIN HCL [Glucophage] 500 mg PO DAILY Discharge Medication List Metoprolol Succinate (ER) [Toprol XL] 50 mg PO HS 11/22/23 [History] buPROPion XL [Wellbutrin XL] 150 mg PO DAILY 11/22/23 [History] dilTIAZem HCL [dilTIAZem HCL 24Hr ER (CD)] 120 mg PO HS 11/22/23 [History] Gabapentin 600 mg PO BID 12/02/24 [History] Sertraline [Zoloft] 50 mg PO HS 12/24/24 [History] Gabapentin [Neurontin] 300 mg PO BID 02/21/25 [History] Nystatin [Nystop] 1 applic TOPICAL TID PRN 02/21/25 [History] Rosuvastatin [Crestor] 10 mg PO HS 02/21/25 [History] Apixaban [Eliquis] 2.5 mg PO BID 30 Days #60 tab 03/07/25 [Rx] Fenofibrate [Lofibra] 160 mg PO DAILY #30 tab 03/07/25 [Rx] Insulin Glargine/Lixisenatide [Soliqua 100 Unit-33 Mcg/ml Pen] 10 units SQ AC- BRKFST #10 ml 03/07/25 [Rx] Midodrine [ProAmatine] 5 mg PO AC-BID #60 tab 03/07/25 [Rx] Ondansetron [Zofran] 4 mg PO Q8HR PRN #40 tab 03/07/25 [Rx] Pantoprazole Sodium [Protonix] 40 mg PO DAILY #30 tab 03/07/25 [Rx] Prochlorperazine [Compazine] 5 mg PO Q6HR PRN #100 tab 03/07/25 [Rx] Scopolamine 1 mg/72 Hr Patch [TransDerm Scop] 1 patch TRANSDERM Q72H #7 patch 03/07/25 [Rx] Sodium Bicarbonate Tab 650 mg PO BID #60 tab 03/07/25 [Rx] diphenhydrAMINE [Benadryl] 50 mg PO TID PRN #90 capsule 03/07/25 [Rx] Follow up Appointment(s)/Referral(s): Ute Wood MD [STAFF PHYSICIAN] - 1 Week Kayla Gandhi DO [Primary Care Provider] - 1-2 days [facility] [NON-STAFF] - As Needed Activity/Diet/Wound Care/Special Instructions: Patient is going home with hospice Activity as tolerated Continue with nausea medications for comfort Continue with diet as tolerated Discharge Disposition: HOME WITH HOSPICE
[2025-03-20 11:41] LABS: Glucose,Whole Blood 155 mg/dL (70-110)
== END 2025-03-20 14:37 | disposition hospice, home (50) | DRG 643 ==
LOC: EC 12:55 → 3SCARD 15:46 → 2SICU 22:25 → 3SCARD 02-26 13:32 → 4SSUR 03-08 15:05
PROVIDERS: ADMIT Internal Medicine; ATTEND Internal Medicine
PROC: 3E033XZ Introduction of Vasopressor into Peripheral Vein, Percutaneous Approach (ICD-10-PCS; 2025-02-22)
PROC: 02HV33Z Insertion of Infusion Device into Superior Vena Cava, Percutaneous Approach (ICD-10-PCS; 2025-03-05)
PROC: 0DB78ZX Excision of Stomach, Pylorus, Via Natural or Artificial Opening Endoscopic, Diagnostic (ICD-10-PCS; principal; 2025-03-14 08:25)
DX: E22.2 Syndrome of inappropriate secretion of antidiuretic hormone (principal); K85.90 Acute pancreatitis without necrosis or infection, unspecified; N17.0 Acute kidney failure with tubular necrosis; C78.01 Secondary malignant neoplasm of right lung; C78.02 Secondary malignant neoplasm of left lung; C77.4 Secondary and unspecified malignant neoplasm of inguinal and lower limb lymph nodes; B96.1 Klebsiella pneumoniae [K. pneumoniae] as the cause of diseases classified elsewhere; C78.7 Secondary malignant neoplasm of liver and intrahepatic bile duct; C79.82 Secondary malignant neoplasm of genital organs; E66.01 Morbid (severe) obesity due to excess calories; E11.42 Type 2 diabetes mellitus with diabetic polyneuropathy; F32.A Depression, unspecified; I10 Essential (primary) hypertension; D50.9 Iron deficiency anemia, unspecified; Z68.42 Body mass index [BMI] 45.0-49.9, adult; E87.20 Acidosis, unspecified; D62 Acute posthemorrhagic anemia; N39.0 Urinary tract infection, site not specified; I48.0 Paroxysmal atrial fibrillation; Z79.4 Long term (current) use of insulin; Z51.5 Encounter for palliative care; Z66 Do not resuscitate; B96.4 Proteus (mirabilis) (morganii) as the cause of diseases classified elsewhere; E86.0 Dehydration; E78.5 Hyperlipidemia, unspecified; N89.9 Noninflammatory disorder of vagina, unspecified; K21.9 Gastro-esophageal reflux disease without esophagitis; K29.70 Gastritis, unspecified, without bleeding; D63.8 Anemia in other chronic diseases classified elsewhere; R53.81 Other malaise; S30.1XXA Contusion of abdominal wall, initial encounter; K31.7 Polyp of stomach and duodenum; E87.70 Fluid overload, unspecified; M19.90 Unspecified osteoarthritis, unspecified site; Z87.891 Personal history of nicotine dependence; Z79.899 Other long term (current) drug therapy; Z79.84 Long term (current) use of oral hypoglycemic drugs; Z79.01 Long term (current) use of anticoagulants; Z85.820 Personal history of malignant melanoma of skin; Z87.440 Personal history of urinary (tract) infections
CPT/HCPCS: 36410; 36415; 43239; 51798; 70553; 71046; 74176; 76705; 76770; 76937; 80048; 80053; 81001; 82533; 82607; 82728; 82747; 83540; 83550; 83605; 83690; 83735; 83880; 83930; 83935; 84100; 84132; 84295; 84300; 84443; 84484; 84550; 85025; 85027; 85610; 85730; 86850; 86900; 86901; 86920; 87040; 87077; 87086; 87186; 87636; 88305; 93005; 96365; 96375; 99285